=== PATIENT | female | born 1975 | race Caucasian/White ===

== ENCOUNTER 2024-03-17 15:49 | Emergency (ER) | payer OTHER, SELFPAY ==
--- NOTE | 2024-03-17 15:53 | ED.FEMALEGU ---
HPI - Female Genitourinary General Chief complaint: Urogenital-Female Stated complaint: Urinary Problem Time Seen by Provider: 03/17/24 16:12 Source: patient and RN notes reviewed Mode of arrival: ambulatory Limitations: no limitations History of Present Illness HPI Narrative: 48-year-old female presents concern for low back ache. She reports bilateral low back ache. She reports history of urinary tract infections. She reports fatigue but denies fever, body aches, chills, sweats, nausea, vomiting, dysuria, frequency, urgency, hematuria. She denies loss of bowel or bladder function, perianal anesthesia or weakness in any extremity. MD elicited complaint: UTI Related Data Home Medications Medication Instructions Recorded Confirmed atorvastatin 20 mg tablet 20 mg PO DAILY 03/17/24 03/17/24 bupropion HCl 300 mg 24 hr tablet, 300 mg PO DAILY 03/17/24 03/17/24 extended release clonazepam 0.5 mg tablet 0.5 mg PO DAILY PRN Anxiety 03/17/24 03/17/24 cyclobenzaprine 5 mg tablet 5 mg PO TID PRN Spasms 03/17/24 03/17/24 spironolactone 50 mg tablet 50 mg PO DAILY 03/17/24 03/17/24 Allergies Allergy/AdvReac Type Severity Reaction Status Date / Time acetaminophen [From Tylenol] Allergy Nausea and Verified 03/17/24 16:18 Vomiting hydrocodone Allergy Nausea and Verified 03/17/24 16:19 Vomiting tramadol Allergy Nausea and Verified 03/17/24 16:19 Vomiting Review of Systems Review of Systems: CONSTITUTIONAL: Denies malaise, chills, sweats, or fever. CARDIOVASCULAR: Denies chest pain, palpitations, or edema. RESPIRATORY: Denies cough or dyspnea. GASTROINTESTINAL: Denies abdominal pain, nausea, vomiting, diarrhea GENITOURINARY: Denies dysuria, frequency, urgency, suprapubic pressure. Denies flank pain or hematuria. SKIN: Denies rash or itching. MUSCULOSKELETAL:. Reports back pain, denies myalgia. All systems reviewed & are unremarkable except as noted in HPI and below PMFSH Comments At time of signature, agree with nursing past medical, surgical, social and family history. There is no relevant family history pertinent to the presenting complaint Exam Narrative: GENERAL: Well-appearing, well-nourished, and in no acute distress. HEAD: Normocephalic. EYES: PERRLA, conjunctivae clear. NECK: Supple. No lymphadenopathy CHEST: Clear to auscultation. No respiratory distress. HEART: Regular rate and rhythm. ABDOMEN: Soft, nontender upon palpation, nondistended, normal active bowel sounds, no palpable or pulsatile masses, no guarding. No CVA tenderness SKIN: Warm, dry, no rash. NEURO: Alert and oriented x3. PSYCH: Normal mood and affect Course Course Emergency Course: Patient is aware of diagnosis, understands and agrees to treatment plan. Anticipatory guidance given. Patient agrees to follow-up as directed and is aware of reasons to seek care at the emergency department. Portions of this record may have been created with voice recognition software Level of Care: Express Care Visit Vital Signs Vital signs: Vital Signs Temperature 98.3 F 03/17/24 16:01 Pulse Rate 92 03/17/24 16:01 Respiratory Rate 16 03/17/24 16:01 Blood Pressure 114/81 03/17/24 16:01 Pulse Oximetry 99 03/17/24 16:01 Oxygen Delivery Room Air 03/17/24 16:01 Temperature 98.3 F 03/17/24 16:01 Pulse Rate 92 03/17/24 16:01 Respiratory Rate 16 03/17/24 16:01 Blood Pressure 114/81 03/17/24 16:01 Pulse Oximetry 99 03/17/24 16:01 Oxygen Delivery Room Air 03/17/24 16:01 Reviewed. MDM - Female Genitourinary MDM Narrative Medical decision making narrative: Exam findings and UA show no acute concerns or changes; patient is non-toxic appearing and is in no distress. Patient is appropriate for outpatient treatment and follow-up. Differential Diagnosis Differential diagnosis: Likely urinary tract infection and cystitis Lab Data Labs: Lab Results 03/17/24 Range/Units 16:11 POC
[2024-03-17 16:01] VITALS: BP 114/81; PULSE 92; RESP 16; TEMP 36.8; O2SAT 99
[2024-03-17 16:14] LABS: EDUAAPPEAR Clear; EDUABILI Negative (Negative); EDUABLOOD Negative (Negative); EDUACOLOR1 Yellow; EDUAGLUCOSE Negative (Negative); EDUAKETONE Negative (Negative); EDUALEUKO Negative (Negative); EDUANITRATE Negative (Negative); EDUAPH 7.5; EDUAPROTEIN Negative (Negative); EDUAUROBILI 0.2
== END 2024-03-17 16:21 | disposition home or self-care (01) ==
PROVIDERS: Emergency Provider Nurse Practitioner; PCP Family Medicine
DX: M54.50 Low back pain, unspecified (principal)
CPT/HCPCS: 81003; 87086; 87088; 99203; G0463

== ENCOUNTER 2024-06-18 10:05 | Emergency (ER) | payer OTHER, SELFPAY ==
[2024-06-18 10:16] VITALS: BP 105/69; PULSE 70; RESP 16; TEMP 37.2; O2SAT 100
--- NOTE | 2024-06-18 10:38 | ED.ALLEREA ---
HPI - Allergic Reaction General Chief complaint: Allergic Reaction Stated complaint: Rash History of Present Illness HPI narrative: Patient presents with itchy rash to her neck. Patient states he is allergic to dairy and she had some butter is what she thinks causes a rash. Patient has a itchy rash to her neck states she has been taking Benadryl and is much improved. Patient states she is itching it some but she is worried about a secondary infection. No drainage no streaking. Related Data Home Medications ?Medication ?Instructions ?Recorded ?Confirmed ?Last Taken ?Type atorvastatin 20 mg tablet 20 mg PO DAILY 03/17/24 03/17/24 Unknown History bupropion HCl 300 mg 24 hr tablet, 300 mg PO DAILY 03/17/24 03/17/24 Unknown History extended release clonazepam 0.5 mg tablet 0.5 mg PO DAILY PRN Anxiety 03/17/24 03/17/24 Unknown History cyclobenzaprine 5 mg tablet 5 mg PO TID PRN Spasms 03/17/24 03/17/24 Unknown History spironolactone 50 mg tablet 50 mg PO DAILY 03/17/24 03/17/24 Unknown History Allergies Allergy/AdvReac Type Severity Reaction Status Date / Time acetaminophen (From Tylenol) Allergy Nausea and Verified 03/17/24 16:18 Vomiting hydrocodone Allergy Nausea and Verified 03/17/24 16:19 Vomiting tramadol Allergy Nausea and Verified 03/17/24 16:19 Vomiting Review of Systems Review of Systems: CONSTITUTIONAL: Denies chills, or sweats. Reports fever and generalized body aches EYES: Denies visual changes, redness, or discharge. ENT: Denies otalgia. Reports nasal congestion runny nose and sore throat CARDIOVASCULAR: Denies chest pain, palpitations, or edema. RESPIRATORY: Denies dyspnea. Reports occasional cough GASTROINTESTINAL: Denies abdominal pain, nausea, vomiting, or diarrhea. GENITOURINARY: Denies dysuria or hematuria. SKIN: Denies rash or itching. MUSCULOSKELETAL: Denies back pain, joint pain, or myalgia. Reports generalized body aches NEUROLOGIC: Denies headache, numbness, or weakness. PSYCHIATRIC: Denies anxiety or depression. PMFSH Comments At time of signature, agree with nursing past medical, surgical, social and family history. There is no relevant family history pertinent to the presenting complaint Exam Narrative: The patient is a well-developed, well-nourished in no acute distress. SKIN: Skin is warm and dry without erythema, swelling or exudate. There is good turgor. No tenting. HEAD: Atraumatic. Normocephalic. No temporal or scalp tenderness. EYES: Moist and bright. Sclera and conjunctivae normal. No discharge. PERRLA. Extraocular motions intact. Gross visual acuity intact. EARS: Pinna is normal shape and contour. Clear external auditory canals. TM pearly chen with good cone of light, no erythema or suppuration. Bilateral cerumen noted no gross hearing deficit. NOSE: pink, moist mucosa with good air movement. Clear rhinorrhea without nasal flaring. Septum midline. Mouth: moist mucous membranes. THROAT; mild erythema noted to posterior oropharynx with moderate postnasal drainage. Without exudate or ulceration.. Uvula midline. Normal movement of soft palate. NECK: Supple and nontender with full range of motion without discomfort. No meningeal signs. Contact dermatitis dermatitis No induration fluctuance or drainage. No surrounding erythremia. No lesions and TTP. No specific pattern or dermatomal distribution. Several different stages with occasional scabbing and excoriation. Spares palms and soles. Findings consistent with contact dermatitis. LUNGS: Equal and bilateral breath sounds without wheezes, rales or rhonchi. CHEST: The chest wall is without retractions or use of accessory muscles. HEART: Has a regular rate and rhythm without murmur, gallops, click or rub. ABDOMEN: Soft, nontender with positive active bowel sounds. No rebound tenderness. EXTREMITIES: Without cyanosis, clubbing or edema. Equal 2+ distal pulses and 2 second capillary refill noted. NEUROLOGIC: alert, active, . The patient moves all extremities with normal muscle strength. Normal muscle tone is noted. Normal coordination is noted. NO focal neurological findings noted. Course Course Level of Care: Express Care Visit Vital Signs Vital signs: Vital Signs Temperature 37.2 C 06/18/24 10:16 Pulse Rate 70 06/18/24 10:16 Respiratory Rate 16 06/18/24 10:16 Blood Pressure 105/69 06/18/24 10:16 Pulse Oximetry 100 06/18/24 10:16 Oxygen Delivery Room Air 06/18/24 10:16 Temperature 37.2 C 06/18/24 10:16 Pulse Rate 70 06/18/24 10:16 Respiratory Rate 16 06/18/24 10:16 Blood Pressure 105/69 06/18/24 10:16 Pulse Oximetry 100 06/18/24 10:16 Oxygen Delivery Room Air 06/18/24 10:16 Discharge Plan Discharge Clinical Impression: Urticaria, Contact dermatitis Patient Disposition: Home, Self-Care Condition: Stable Instructions: Antibiotic Form Additional Instructions: -Hives are usually caused by skin contact with an irritant such as plants, new foods, new medications, new personal or household products, these can also be caused by viral infection - Cool compresses can be beneficial to help with swelling and itching, please apply these for 20 minutes at a time -If there is possible contact to an allergen to the skin surface area, a shower or bath may be beneficial, please change clothes -If over 1 year of age: can give Benadryl every 6--8 hours for hives that are itching, this is available over the counter. This medication is weight based. Please continue to give this until hives are gone for 12 hours. It may cause drowsiness. -You can also give a daily antihistamine such as Claritin, Zyrtec, or Amita based on patient?s age -If you have any worsening of symptoms or any other concerns please go to the ED immediately. Patient Language: Nicaraguan Prescriptions: New triamcinolone acetonide 0.1 % ointment 1 applic topical TID 7 Days Qty: 30 0RF mupirocin 2 % ointment 1 applic TOPICAL TID 7 Days Qty: 15 0RF Zyrtec 10 mg capsule 10 mg PO DAILY 14 Days Qty: 30 0RF No Action atorvastatin 20 mg tablet 20 mg PO DAILY spironolactone 50 mg tablet 50 mg PO DAILY bupropion HCl 300 mg tablet extended release 24 hr 300 mg PO DAILY clonazepam 0.5 mg tablet 0.5 mg PO DAILY PRN (Reason: Anxiety) cyclobenzaprine 5 mg tablet 5 mg PO TID PRN (Reason: Spasms) Follow-up/Referrals: Annette,Fernando Garcia DO [Primary Care Provider] -
--- OUTSIDE RECORDS SUMMARY | 2024-06-25 09:49 | XMS_ITS | Encounter Summary ---
Author Organization [facility] Healthcare Address [address] [place] [address] Care Team Providers Care Chef German Name Role Phone Eliseo Lambert MD Primary Care Provider Erna Hooper MD Unavailable Kwesi Hill MD Unavailable [phone] Fernando Bryant DO Primary Care Provider [phone] Reason for Visit * Reason Onset Date Comments Dizziness 06/29/2023 Shortness of Breath 06/29/2023 Fever 06/29/2023 Encounter Details Date Type Department Care Team (Late st Contact Info) Description 06/29/2023 Nurse Triage [facility] Primary Care at [address] [place] [address] Eliseo Lambert MD [address] [place], [place] [address]DG [facility] [address] [place] [address] Social History Tobacco Use Types Packs/Day Years Used Date Smoking Tobacco: Every Day Cigarettes Smokeless Tobacco: Never Alcohol Use Standard Drinks/Week Comments No 0 (1 standard drink = 0.6 oz pur e alcohol) PHQ-2 Answer Date Recorded PHQ-2 Total Score (If total score is 3 or more points, staff should administer the PHQ-9) 0 04/21/2023 Personal Safety Answer Date Recorded Have you ever been in or are you currently in a harmful physical or emotional relationship or is someone making you feel afraid or unsafe? 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 Pt completed Paxlovid today. Pt states continues to have on and off fevers, last one today at 100.0. Pt denies using inhalers as directed for sob. Needs refill on inhaler. Appt scheduled in office with CORRECTIONAL CASE MANAGER for follow up this week. Pt encouraged to stay hydrated, drink warm broth and fluids, try tea with honey to soothe throat, cough syrups, throat logenzes, tylenol for headaches, temperature, or body aches, using inhaler for wheezing if has one (call if needed or develops), mucinex for expectorant, claritin or zyrtec for anti histamine to dry up nasal drainage, humidifier, and take warm showers. Please call back if fever over 103, chest pain or sob while at rest. Pt provided with CDC recommendations of isolation. Stay home for 5 days from onset of symptoms. If symptoms improving and no fever in 24hrs, pt may leave home on day 6 and wear mask around others foradditional 5 days. Routed to clinical pool. Pt requesting refill on inhaler be sent to pharmacy. Please call pt directly with further recommendations. * Telephone Encounter - Nubia Kim RN - 06/29/2023 12:17 PM PROFESSOR OF JOURNALISM Regarding: shortness of breath/light headed ----- Message from Zakia Acevedo sent at 06/29/2023 11:56 AM PROFESSOR OF JOURNALISM ----- Symptom Based Call Chief Complaint(s): shortness of breath/light headed Duration: seven days What type of symptom(s) is the patient experiencing? Red Flag. Is the patient concerned they are experiencing a medical emergency requiring an ambulance? No Additional Comments: shortness of breath/light headed, fever keeps coming back , skin color is grayish , light headed, weak when walking, cannot walk/talk too much due to shortness of breath, taking Paxlovid due to positive COVID test (message dated as ), payment analyst cannot prescribe medication but will develop a plan of care Does message need to be routed? Yes-Action Needed ESSOR OF JOURNALISM documented in this encounter Plan of Treatment Not on file documented as of this encounter Visit Diagnoses Not on filedocumented in this encounter Care Teams Chef German Relationship Specialty Start Date End Date Eliseo Lambert MD PCP - General Family Medicine 05/21/20 06/29/23 Fernando Bryant DO [address] [place] [address] PCP - General Family Medicine 06/30/23 Erna Hooper MD [address] [place] [address] Referring Physician Nephrology 12/21/22 Kwesi Hill MD [address] [place] [address] [address] [place] [address] Consulting Physician Psychiatry 03/15/23 documented as of this encounter
--- OUTSIDE RECORDS SUMMARY | 2024-06-25 09:49 | XMS_ITS | Encounter Summary ---
Author Organization [facility] Healthcare Address [address] [place] [address] Care Team Providers Care Cutter Grinder Name Role Phone Eliseo Lambert MD Primary Care Provider Erna Hooper MD Unavailable Kwesi Hill MD Unavailable [phone] Reason for Referral * Diagnostic Imaging (Routine) - Closed Specialty Diagnoses / Procedures Referred By Mirlande steinberg Referred To Contact Diagnoses Elevated serum creatinine Chronic RUQ pain CKD (chronic kidney disease) stage 2, GFR 60-89 ml/min Abnormal finding Procedures US Kidney Complete US Kidney Complete Erna Hooper MD [address] [place] [address] [address] Phone: tel: fax: [address] [address] Referral ID Status Reason Start Date Expiration Date Visits Re quested Visits Authorized [id number] Closed 01/28/2023 02/27/2024 1 1 Reason for Visit * Diagnostic Imaging (Routine) - Closed Specialty Diagnoses / Procedures Referred By Mirlande steinberg Referred To Contact Diagnoses Elevated serum creatinine Chronic RUQ pain CKD (chronic kidney disease) stage 2, GFR 60-89 ml/min Abnormal finding Procedures US Kidney Complete US Kidney Complete Erna Hooper MD [address] [place] [address] [address] Phone: tel: fax: [address] [place] [address] Referral ID Status Reason Start Date Expiration Date Visits Re quested Visits Authorized [id number] Closed 01/28/2023 02/27/2024 1 1 Encounter Details Date Type Department Care Team (Latest Contact Info) Description 04/20/2023 2:13 PM CDT - 04/20/2023 11:59 PM CDT Hospital Encounter [facility] [address] [place] [address] Elevated serum creatinine; Chronic RUQ pain; CKD (chronic kidney disease) stage 2, GFR 60-89 ml/min; Abnormal finding Discharge Disposition: Discharge to home or self care Social History Tobacco Use Types Packs/Day Years Used Date Smoking Tobacco: Every Day Cigarettes Smokeless Tobacco: Never Alcohol Use Standard Drinks/Week Comments No 0 (1 standard drink = 0.6 oz pur e alcohol) PHQ-2 Answer Date Recorded PHQ-2 Total Score (If total score is 3 or more points, staff should administer the PHQ-9) 0 04/21/2023 Comments No Sex and Gender Information Value Date Recorded Sex Assigned at Not on file Legal Sex Female 1:17 AM DELIVERY MANAGER Gender Identity Not on file Sexual Orientation Not on file 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 100 each 1 09/19/19 21 buPROPion XL (WELLBUTRIN XL) 300 mg 24 hr tablet Take 1 tablet (300 mg total) by mouth every morning 04/12/20 20 cholecalciferol (VITAMIN D-3) 5,000 unit capsuleIndications:Vitam in D deficiency TAKE ONE CAPSULE BY MOUTH EVERY DAY 90 capsule 3 07/24/19 23 clonazePAM (KlonoPIN) 0.5 mg tablet as needed 11/20/19 23 ondansetron ODT (ZOFRAN-ODT) 4 mg disintegrating tablet Take 1 tablet (4 mg total) by mouth every 8 (eight) hours as needed for nausea or vomiting 20 tablet 11/04/19 22 OneTouch Verio Flex meter misc 09/20/19 21 lidocaine (LIDODERM) 5 % Place 1 patch on the skin daily for 10 days Remove & discard patch within 12 hours or as directed by . 10 patch 05/12/20 22 024 spironolactone (ALDACTONE) 50 mg tabletIndications:Cystic acne vulgaris TAKE ONE TABLET BY MOUTH EVERY DAY 90 tablet 2 09/22/19 23 023 documented as of this encounter Discharge Disposition Disposition Code Departure Means Destination Discharge to home or self care documented in this encounter Plan of Treatment Not on file documented as of this encounter Procedures Procedure Name Priority Date/Time Associated Diagnosis Comments US KIDNEY COMPLETE Schedule Routine, Read Routine (OP Routine) 04/20/2023 2:51 PM CDT Elevated serum creatinine Chronic RUQ pain CKD (chronic kidney disease) stage 2, GFR 60-89 ml/min Abnormal finding documented in this encounter Results * US Kidney Complete (04/20/2023 2:51 PM CDT) Anatomical Region Laterality Modality Kidney N/A Ultrasound 04/22/2023 6:38 AM CDT Narrative 04/22/2023 6:40 AM CDT EXAM DESCRIPTION: ?? US KIDNEY COMPLETE REASON FOR STUDY: ?? procedure, eval for structural abnormalities causing elevated Cr ?? TECHNIQUE: Ultrasound of the kidneys and urinary bladder was performed with grayscale imaging. COMPARISON: ?? CT dated 06/07/2020 FINDINGS: Right Kidney: Normal in size and measures 11.5 cm. ??Normal echogenicity. ??No hydronephrosis. Left Kidney: Normal in size and measures 9.6 cm. ??Mild increased echogenicity. No hydronephrosis. Bladder: Partially distended. ??Bilateral ureteral jets are documented. ?? IMPRESSION: 1. ?? No hydronephrosis. ?? 2. ?? Mild increased left renal echogenicity suggestive of chronic renal parenchymal disease. THIS IS AN ELECTRONICALLY VERIFIED FINAL REPORT 04/22/2023 6:40 AM - Electronically signed by ??Patel Clark M.D. AG: ANGELICA D: ??04/22/2023 6:40 AM T: ??04/22/2023 6:40 AM Report ID: [id number] Reading Location: ??[id number] Procedure Note Patel Clark MD - 04/22/2023 EXAM DESCRIPTION: US KIDNEY COMPLETE REASON FOR STUDY: procedure, eval for structural abnormalities causing elevated Cr TECHNIQUE: Ultrasound of the kidneys and urinary bladder was performedwith grayscale imaging. COMPARISON: CT dated 06/07/2020 FINDINGS: Right Kidney: Normal in size and measures 11.5 cm. Normal echogenicity.No hydronephrosis. Left Kidney: Normal in size and measures 9.6 cm. Mild increasedechogenicity. No hydronephrosis. Bladder: Partially distended. Bilateral ureteral jets are documented. IMPRESSION: 1. No hydronephrosis. 2. Mild increased left renal echogenicity suggestive of chronic renal parenchymal disease. THIS IS AN ELECTRONICALLY VERIFIED FINAL REPORT 04/22/2023 6:40 AM - Electronically signed by Patel Clark M.D. AG: AG Report ID: [id number] Reading Location: [id number] us Erna Hooper MD IM US PROCEDURES Final Result documented in this encounter Visit Diagnoses Diagnosis Elevated serum creatinine Other nonspecific findings on examination of blood Chronic RUQ pain Abdominal pain, right upper quadrant CKD (chronic kidney disease) stage 2, GFR 60-89 ml/min Chronic kidney disease, Stage II (mild) Abnormal finding Other nonspecific abnormal finding documented in this encounter Care Teams Cutter Grinder Relationship Specialty Start Date End Date Eliseo Lambert MD PCP - General Family Medicine 05/21/20 06/29/23 Erna Hooper MD [address] [place] [address] Referring Physician Nephrology 12/21/22 Kwesi Hill MD [address] [place] [address] [address] [place] [address] Consulting Physician Psychiatry 03/15/23 documented as of this encounter
--- OUTSIDE RECORDS SUMMARY | 2024-06-25 09:49 | XMS_ITS | Encounter Summary ---
Author Organization [facility] Address [address] [place] [address] Care Team Providers Care Junior Java Developer Name Role Phone Eliseo Lambert MD Primary Care Provider Erna Hooper MD Unavailable Kwesi Hill MD Unavailable [phone] Reason for Referral * Diagnostic Imaging (Routine) - Closed Specialty Diagnoses / Procedures Referred By Contac t Referred To Contact Diagnoses Screening mammogram, encounter for Procedures Screening Mammogram Bilateral W [place] Screening Mammogram, [address] [address] Referral ID Status Reason Start Date Expiration Date Visits Re quested Visits Authorized [id number] Closed 03/15/2023 04/13/2024 1 1 * Diagnostic Imaging (Routine) - Closed Specialty Diagnoses / Procedures Referred By Contac t Referred To Contact Diagnoses Screening mammogram, encounter for Procedures Screening Mammogram Bilateral [place] Screening Mammogram, [address] [address] Referral ID Status Reason Start Date Expiration Date Visits Re quested Visits Authorized [id number] Closed 03/15/2023 04/13/2024 1 1 Reason for Visit * Diagnostic Imaging (Routine) - Closed Specialty Diagnoses / Procedures Referred By Contac t Referred To Contact Diagnoses Screening mammogram, encounter for Procedures Screening Mammogram Bilateral [place] Screening Mammogram, [address] [address] Referral ID Status Reason Start Date Expiration Date Visits Re quested Visits Authorized [id number] Closed 03/15/2023 04/13/2024 1 1 Encounter Details Date Type Department Care Team (Latest Contact Info) Description 04/20/2023 2:13 PM CDT - 04/20/2023 11:59 PM CDT Hospital Encounter [facility] [address] [place] [address] Screening mammogram, encounter for Discharge Disposition: Discharge to home or self [...] on file 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 10 patch 05/12/20 22 024 spironolactone (ALDACTONE) 50 mg tabletIndications:Cystic acne vulgaris TAKE ONE TABLET BY MOUTH EVERY DAY 90 tablet 2 09/22/19 23 023 documented as of this encounter Discharge Disposition Disposition Code Departure Means Destination Discharge to home or self care documented in this encounter Miscellaneous Notes * Result Encounter Note - Eliseo Lambert MD - 04/20/2023 11:59 PM CDT Your breast cancer screening mammogram showed normal findings on the right breast but there was a region in your left breast that showed some abnormality of the breast tissue structure which requiresfurther imaging. Please note that this is commonly done if there is any area that needs further imaging. At times itcould be a thick breast tissue that Is not well visualized with screening mammogram or other findings that need better detailed imaging so it does not automatically mean breast cancer although it canhelp us detect one if there is. Staff - order Diagnostic mammogram of left breast and US limited of left breast documented in this encounter Plan of Treatment Not on file documented as of this encounter Procedures Procedure Name Priority Date/Time Associated Diagnosis Comments SCREENING MAMMOGRAM BILATERAL W [place] Schedule Routine, Read Routine (OP Routine) 04/20/2023 2:49 PM CDT Screening mammogram, encounter for documented in this encounter Results * (ABNORMAL) Screening Mammogram Bilateral W [place] (04/20/2023 2:49 PM CDT) Anatomical Region Laterality Modality Breast Bilateral Mammography 04/20/2023 2:53 PM CDT Impressions 04/20/2023 2:53 PM CDT 1. ??Possible asymmetry in the central left breast at middle to posterior depth on MLO view. ??Further evaluation with left diagnostic mammogram, and possible sonogram is recommended. 2. ??No new suspicious findings in the right breast. BI-RADS: 0 - Additional imaging evaluation is necessary. The patient has been or will be contacted. Electronically signed by: TATY COX Milo 04/20/2023 2:53 PM CDT EXAMINATION: SCREENING MAMMOGRAM BILATERAL W [place] ORDERING HEALTHCARE PROVIDER: SELF SCREENING MAMMOGRAM HISTORY: Routine screening mammography. COMPARISON: ??08/02/2021 TECHNIQUE: CC and MLO views of both breasts were obtained with digital technique using digital breast tomosynthesis with C view. Computer aided detection was utilized. FINDINGS: DENSITY: The breasts are heterogeneously dense, which may obscure small masses. BREASTS: There are no new suspicious findings in the right breast. ??A possible asymmetry is noted in the central left breast at middle to posterior depth on MLO view. us Self Screening Mammogram IMG MAMMO PROCEDURES Fi nal Result documented in this encounter Visit Diagnoses Diagnosis Screening mammogram, encounter for documented in this encounter Care Teams Junior Java Developer Relationship Specialty Start Date End Date Eliseo Lambert MD PCP - General Family Medicine 05/21/20 06/29/23 Erna Hooper MD [address] [place] [address] Referring Physician Nephrology 12/21/22 Kwesi Hill MD [address] [place] [address] [address] [place] [address] Consulting Physician Psychiatry 03/15/23 documented as of this encounter
--- OUTSIDE RECORDS SUMMARY | 2024-06-25 09:49 | XMS_ITS | Encounter Summary ---
Author Organization [facility] Address [address] [place] [address] Phone Care Team Providers Care Log Carrier Operator Name Role Phone Erna Hooper MD Unavailable Kwesi Hill MD Unavailable [phone] Fernando Bryant DO Primary Care Provider [phone] Reason for Visit * Reason Onset Date Comments Appointment 01/14/2024 Encounter Details Date Type Department Care Team (Late st Contact Info) Description 01/14/2024 Telephone [facility] Nephrology [address] [facility] 5th [place] [address] [place] [address] Neto Dan MD [address] [facility] [address] [place] [address] Appointment Social History Tobacco Use Types Packs/Day Years [...] on file 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 Juan * Telephone Encounter - Shandra Kamara - 01/24/2024 1:12 PM CDT Left second message. Juan * Telephone Encounter - Shandra Kamara - 01/14/2024 11:10 AM CDT Left first message to 12/08/23 CX appt. Juan documented in this encounter Plan of Treatment Not on file documented as of this encounter Visit Diagnoses Not on filedocumented in this encounter Care Teams Log Carrier Operator Relationship Specialty Start Date End Date Fernando Bryant DO [address] [place] [address] PCP - General Family Medicine 06/30/23 Erna Hooper MD [address] [place] [address] Referring Physician Nephrology 12/21/22 Kwesi Hill MD [address] [place] [address] [address] [place] [address] Consulting Physician Psychiatry 03/15/23 documented as of this encounter
--- OUTSIDE RECORDS SUMMARY | 2024-06-25 09:49 | XMS_ITS | Encounter Summary ---
Author Organization [facility] Healthcare Address [address] [place] [address] Care Team Providers Care Infant Lead Teacher Name Role Phone Erna Hooper MD Unavailable Kwesi Hill MD Unavailable [phone] Fernando Bryant DO Primary Care Provider [phone] Reason for Visit * Reason Onset Date Comments Medical Records Request 01/27/2024 Encounter Details Date Type Department Care Team (Late st Contact Info) Description 01/27/2024 Telephone [facility] Medical [facility] Primary Care at [address] [place] [address] Eliseo Lambert MD [address] [place] [address] [address] [place] [address] Medical Records Request Social History Tobacco Use Types Packs/Day Years [...] on file 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 * Telephone Encounter - Karoline Talley CLT - 01/27/2024 9:06 AM CDT Immunization summary printed and placed at the senior front end engineer with [employer] to be signed. * Telephone Encounter - Gilberto Huang - 01/27/2024 8:24 AM CDT Medical Records Request Request Type: Records Request Practice Will Complete What records are being requested:Complete vaccination records Who will the records be sent to (if being sent to another doctor, list the doctor's name and specialty)? Patient Date Needed: Today Delivery Method: maintenance supervisor 2nd shift at practice Additional Comments: Patient's new employer is requesting she have them today and they be signed bythe doctor. Sending high priority request. Call when ready Does message need to be routed? Yes-Action Needed documented in this encounter Plan of Treatment Not on file documented as of this encounter Visit Diagnoses Not on filedocumented in this encounter Care Teams Infant Lead Teacher Relationship Specialty Start Date End Date Fernando Bryant DO [address] [place] [address] PCP - General Family Medicine 06/30/23 Erna Hooper MD [address] [place] [address] Referring Physician Nephrology 12/21/22 Kwesi Hill MD [address] [place] [address] [address] [place] [address] Consulting Physician Psychiatry 03/15/23 documented as of this encounter
--- OUTSIDE RECORDS SUMMARY | 2024-06-25 09:49 | XMS_ITS | Encounter Summary ---
Author Organization [facility] Healthcare Address [address] [place] [address] Care Team Providers Care Charging Machine Operator Name Role Phone Eliseo Lambert MD Primary Care Provider Erna Hooper MD Unavailable Kwesi Hill MD Unavailable [phone] Reason for Visit * Reason Onset Date Comments Test Results 04/27/2023 Encounter Details Date Type Department Care Team ([facility] Contact Info) Description 04/27/2023 Telephone [facility] Medical Group Primary Care at [address] [place] [address] Eliseo Lambert MD [address] [place] [address] [address] [place] [address] Test Results Social History Tobacco Use Types Packs/Day Years [...] on file 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 No Additional Questions/Comments: Patient would like someone to call her back about her test results. Patient stated that she is not felling very good and feels blah . Patient stated that her creatinine is high. Patients mchc is low. Mcv is kita as well. Patient stated that she does not know if she can wait 2-3 business days for results. Patient is more concerned about the creatinine. Does message need to be routed? Yes-Action Needed documented in this encounter Plan of Treatment Not on file documented as of this encounter Visit Diagnoses Not on filedocumented in this encounter Care Teams Charging Machine Operator Relationship Specialty Start Date End Date Eliseo Lambert MD PCP - General Family Medicine 05/21/20 06/29/23 Erna Hooper MD [address] [place] [address] Referring Physician Nephrology 12/21/22 Kwesi Hill MD [address] [place] [address] [address] [place] [address] Consulting Physician Psychiatry 03/15/23 documented as of this encounter
--- OUTSIDE RECORDS SUMMARY | 2024-06-25 09:49 | XMS_ITS | Encounter Summary ---
Author Organization [facility] Healthcare Address [address] [place] [address] Care Team Providers Care Medical Records Coder Name Role Phone Eliseo Lambert MD Primary Care Provider Erna Hooper MD Unavailable Kwesi Hill MD Unavailable Reason for Visit * Reason Comments UTI Both sides aching, p t states she feels run down Encounter Details Date Type Department Care Team (Latest Contact Info) Description 04/21/2023 3:00 PM CDT Office Visit 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 Not on file Not on file documented as of this encounter Last Filed Vital Signs Vital Sign Reading Time Taken Comments Blood Pressure 116/78 04/21/2023 3:00 PM CDT Pulse 100 04/21/2023 3:00 PM CDT Temperature 36.9 ??C (98.5 ??F) 04/21/2023 3:00 PM CD T Respiratory Rate - - Oxygen Saturation 99% 04/21/2023 3:00 PM CDT Inhaled Oxygen Concentration - - Weight 54 kg (119 lb) 04/21/2023 3:00 PM CDT Height 154.9 cm (5' 1 ) 04/21/2023 3:00 PM CDT Body Mass Index 22.48 04/21/2023 3:00 PM CDT documented in this encounter Progress Notes * Eliseo Lambert MD - 04/21/2023 3:00 PM CDT Images from the original note were not included. Assessment/Plan Diagnoses and all orders for this visit: Bilateral flank pain (Primary) - POCT urinalysis dipstick - CBC with auto differential; Future - Renal function panel; Future Pure hypercholesterolemia - TSH reflex to free T4; Future - Lipid panel; Future Point of care urinalysis shows normal findings. Low concern for a UTI. Patient just complete renal ultrasound yesterday is currently waiting results but will be helpful to rule out issues such as renal stone but unlikely if bilateral. Denies any strenuous activity or trauma but could also be musculoskeletal in nature. At this time I am going to go ahead and obtain lab work to evaluate for any abnormal findings including renal function. See orders. Return if symptoms worsen or fail to improve. Subjective/Objective Chief Complaint Patient presents with UTI Both sides aching, pt states she feels run down UTI Associated symptoms include flank pain (bilateral - doscomfort like) and nausea. Pertinent negatives include no chills, frequency, hematuria, urgency or vomiting. Kristy Quarles is a 47 y.o. female who is here for concern for urinary tract infection. Patient reports over the past few days she is had bilateral pain in her sides and has been feeling tired and was concerned about potential ear infection. She denies any dysuria, urinary frequency or urgency, blood in urine, she has mild nausea but no vomiting, fever or chills. Patient follows up with Nephrology and yesterday had an ultrasound of the kidneys complete but results still pending. Point of care urinalysis shows results as documented below. Component Ref Range & Units 04/21/23 1548 Color, Urine, POC Light Yellow Clarity, ur, POC Clear Clear Glucose, ur, POC Negative MG/DL Negative Bilirubin, ur, POC Negative, Small, Moderate, Large Negative Ketones, ur, POC Negative Negative Specific Reform, POC 1.003 - 1.030 1.020 Blood, ur, POC Negative Negative pH, ur, POC 5.0 - 8.0 7.0 Protein, ur, POC Negative Negative Urobilinogen, urine, POC 0.2 - 1.0 mg/dL 0.2 Nitrite, ur, POC Negative Negative Leukocytes, ur, POC Negative Negative Please see the assessment and plan section for relevant conditions discussed, status of conditions,current and future management recommendations. Patient Care Team: Eliseo Lambert MD as PCP - General (Family Medicine) Erna Hooper MD as Referring Physician (Nephrology) Kwesi Hill MD as Consulting Physician (Psychiatry) Labs: Lab Results Component Value Date CHOL 199 05/06/2022 TRIG 89 05/06/2022 HDL 71 05/06/2022 Lab Results Component Value Date LDLCALC 110 05/06/2022 Lab Results Component Value Date TSH 3.21 05/06/2022 Lab Results Component Value Date HGBA1C 5.3 03/27/2021 HGBA1C 5.3 05/30/2020 Review of Systems Constitutional: Negative for chills, fever and unexpected weight change. Gastrointestinal: Positive for nausea. Negative for abdominal pain, anal bleeding, blood in stool, constipation, diarrhea, rectal pain and vomiting. Genitourinary: Positive for flank pain (bilateral - doscomfort like). Negative for dysuria, frequency, genital sores, hematuria and urgency. Musculoskeletal: Negative for back pain. Skin: Negative for rash and wound. Vitals: 04/21/23 1500 BP: 116/78 BP Location: Left arm Patient Position: Sitting Pulse: 100 Temp: 36.9 ??C (98.5 ??F) SpO2: 99% Weight: 54 kg (119 lb) Height: 154.9 cm (5' 1 ) Wt Readings from Last 3 Encounters: 04/21/23 54 kg (119 lb) 03/15/23 53.5 kg (118 lb) 12/15/22 54.4 kg (120 lb) Body mass index is 22.48 kg/m??. Physical Exam Vitals and nursing note reviewed. Constitutional: General: She is not in acute distress. Appearance: Normal appearance. She is not ill-appearing. Comments: Here with her HENT: Head: Normocephalic and atraumatic. Mouth/Throat: Mouth: Mucous membranes are moist. Eyes: Extraocular Movements: Extraocular movements intact. Cardiovascular: Rate and Rhythm: Normal rate. Pulmonary: Effort: Pulmonary effort is normal. Chest: Abdominal: General: Abdomen is flat. Bowel sounds are normal. There is no distension. Palpations: Abdomen is soft. There is no mass. Tenderness: There is no abdominal tenderness. There is no right CVA tenderness, left CVA tenderness, guarding or rebound. Hernia: No hernia is present. Skin: General: Skin is warm. Neurological: General: No focal deficit present. Mental Status: She is alert and oriented to person, place, and time. Eliseo Lambert MD Please note: Voice recognition software [employer] Direct was used dictate and transcribe this document. Director Of Patient Financial Services variances may occur. Despite proofreading, typographical errors may occur. j documented in this encounter Plan of Treatment Scheduled Orders Name Type Priority Associated Diagnoses Orde r Schedule CBC with auto differential Lab Routine Bilateral flank pain Expected: 04/21/2023 (Approximate), Expires: 10/21/2023 Renal function panel Lab Routine Bilateral flank pain Expected: 04/21/2023 (Approximate), Expires: 10/21/2023 TSH reflex to free T4 Lab Routine Pure hypercholesterolemia Expected: 04/21/2023 (Approximate), Expires: 04/21/2024 Lipid panel Lab Routine Pure hypercholesterolemia Expected: 04/21/2023 (Approximate), Expires: 04/21/2024 documented as of this encounter Procedures Procedure Name Priority Date/Time Associated Diagnosis Comments POCT URINALYSIS DIPSTICK Routine 04/21/2023 3:48 PM CDT Bilateral flank pain documented in this encounter Results * POCT urinalysis dipstick (04/21/2023 3:48 PM CDT) Color, Urine, POC Light Yellow Clarity, ur, POC Clear Clear Glucose, ur, POC Negative Negative MG/DL Bilirubin, ur, POC Negative Negative, Small, Moderate, Large Ketones, ur, POC Negative Negative Specific Reform, POC 1.020 1.003 - 1.030 Blood, ur, POC Negative Negative pH, ur, POC 7.0 5.0 - 8.0 Protein, ur, POC Negative Negative Urobilinogen, urine, POC 0.2 0.2 - 1.0 mg/dL Nitrite, ur, POC Negative Negative Leukocytes, ur, POC Negative Negative Lot Number [id number] Urine 04/21/2023 3:48 PM CDT Eliseo Lambert MD POINT OF CARE TEST MIKE ROMERO Final Result documented in this encounter Visit Diagnoses Diagnosis Bilateral flank pain- Primary Abdominal pain, unspecified site Pure hypercholesterolemia documented in this encounter Care Teams Medical Records Coder Relationship Specialty Start Date End Date Eliseo Lambert MD PCP - General Family Medicine 05/21/20 06/29/23 Erna Hooper MD [address] [place] [address] Referring Physician Nephrology 12/21/22 Kwesi Hill MD [address] [place] [address] [address] [place] [address] Consulting Physician Psychiatry 03/15/23 documented as of this encounter
--- OUTSIDE RECORDS SUMMARY | 2024-06-25 09:49 | XMS_ITS | Encounter Summary ---
Author Organization [facility] Address [address] [place] [address] Phone Care Team Providers Care Lock[employer]ch Coat Joiner Name Role Phone Erna Hooper MD Unavailable Kwesi Hill MD Unavailable [phone] Fernando Bryant DO Primary Care Provider [phone] Encounter Details Date Type Department Care Team (Late st Contact Info) Description 11/16/2023 Orders Only [facility] Nephrology [address] Advanced Medicine 5th [place] [address] [place] [address] Neto aDn MD [address] [facility] [address] [place], [place] [id number] Elevated serum creatinine (Primary Dx); Pure hypercholesterolemia; Vitamin D deficiency; CKD (chronic kidney disease) stage 2, GFR 60-89 ml/min; Inflammatory polyarthropathy (CMS/HCC) (HCC); Degenerative disc disease at L5-S1 level; Vitamin D deficiency, unspecified; Encounter for routine adult health examination with abnormal findings; Screening for hematuria or proteinuria Social History Tobacco Use Types Packs/Day Years [...] on file 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 Gender Identity Not on file Sexual Orientation Not on file 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 file Not on file Not on file documented as of this encounter Miscellaneous Notes * Addendum Note - Lynette Jack RMA - 11/16/2023 1:35 PM CDTAddended by: LYNETTE JACK on: 11/16/2023 01:36 PM Modules accepted: Orders documented in this encounter Plan of Treatment Not on file documented as of this encounter Procedures Procedure Name Priority Date/Time Associated Diagnosis Comments COPY RECEIVED FROM Routine 11/29/2023 2: 22 PM CDT COPY(IES) SENT TO: Routine 11/29/2023 2: 22 PM CDT URINALYSIS AND REFLEX TO MICROSCOPIC Routine 11/29/2023 2:22 PM CDT Elevated serum creatinine Pure hypercholesterolemia Vitamin D deficiency CKD (chronic kidney disease) stage 2, GFR 60-89 ml/min Inflammatory polyarthropathy (CMS/HCC) (HCC) Degenerative disc disease at L5-S1 level Vitamin D deficiency, unspecified Encounter for routine adult health examination with abnormal findings Screening for hematuria or proteinuria CBC WITH AUTO DIFFERENTIAL Routine 11/29/2023 2:22 PM CDT Elevated serum creatinine Pure hypercholesterolemia Vitamin D deficiency CKD (chronic kidney disease) stage 2, GFR 60-89 ml/min Inflammatory polyarthropathy (CMS/HCC) (HCC) Degenerative disc disease at L5-S1 level Vitamin D deficiency, unspecified Encounter for routine adult health examination with abnormal findings Screening for hematuria or proteinuria PROTEIN / CREATININE RATIO, URINE, RANDOM Routine 11/29/2023 2:22 PM CDT Elevated serum creatinine Pure hypercholesterolemia Vitamin D deficiency CKD (chronic kidney disease) stage 2, GFR 60-89 ml/min Inflammatory polyarthropathy (CMS/HCC) (HCC) Degenerative disc disease at L5-S1 level Vitamin D deficiency, unspecified Encounter for routine adult health examination with abnormal findings Screening for hematuria or proteinuria VITAMIN D 25 HYDROXY Routine 11/29/2023 2:22 PM CDT Elevated serum creatinine Pure hypercholesterolemia Vitamin D deficiency CKD (chronic kidney disease) stage 2, GFR 60-89 ml/min Inflammatory polyarthropathy (CMS/HCC) (HCC) Degenerative disc disease at L5-S1 level Vitamin D deficiency, unspecified Encounter for routine adult health examination with abnormal findings Screening for hematuria or proteinuria PTH Routine 11/29/2023 2:22 PM CDT Elevated serum creatinine Pure hypercholesterolemia Vitamin D deficiency CKD (chronic kidney disease) stage 2, GFR 60-89 ml/min Inflammatory polyarthropathy (CMS/HCC) (HCC) Degenerative disc disease at L5-S1 level Vitamin D deficiency, unspecified Encounter for routine adult health examination with abnormal findings Screening for hematuria or proteinuria RENAL FUNCTION PANEL Routine 11/29/2023 2:22 PM CDT Elevated serum creatinine Pure hypercholesterolemia Vitamin D deficiency CKD (chronic kidney disease) stage 2, GFR 60-89 ml/min Inflammatory polyarthropathy (CMS/HCC) (HCC) Degenerative disc disease at L5-S1 level Vitamin D deficiency, unspecified Encounter for routine adult health examination with abnormal findings Screening for hematuria or proteinuria documented in this encounter Results * Copy received from (11/29/2023 2:22 PM CDT) Copy Rec'd from: [facility] Comment: ?[facility] - INTERNAL MED-RENAL ?[id number] [facility] [address] ?[place] [address] 11/29/2023 2:22 PM CDT 11/29/2023 2:23 PM CDT Narrative [facility] - 11/30/2023 7:15 AM CDT FASTING:NO FASTING: NO Neto Dan MD LAB BLOOD ORDERABLES Fi nal Result Performing Organization Address City/[facility]/ZIP Co de Phone Number [facility] * COPY(IES) SENT TO: (11/29/2023 2:22 PM CDT) COPY(IES) SENT TO: [facility] Comment: ?[facility] INTERNAL MED RENAL ?[address] ?[place] [address] 11/29/2023 2:22 PM CDT 11/29/2023 2:23 PM CDT Narrative [facility] - 11/30/2023 7:15 AM CDT FASTING:NO FASTING: NO Neto Dan MD LAB BLOOD ORDERABLES Fi nal Result Performing Organization Address [facility] de Phone Number [facility] * Renal function panel (11/29/2023 2:22 PM CDT) Glucose 84 65 - 139 mg/dL [facility] Comment: ? Non-fasting reference interval BUN 12 7 - 25 mg/dL [facility] Creatinine 0.94 0.50 - 1.03 mg/dL [facility] eGFR 74 > OR = 60 mL/min/1.7 3m2 [facility] BUN/creat ratio SEE NOTE: (calc) [facility] Comment: ?? Not Reported: BUN and Creatinine are within ?? reference range. ? Sodium 138 135 - 146 mmol/L [facility] Potassium, pl 4.2 3.5 - 5.3 mmol/L [facility] Chloride 100 98 - 110 mmol/L [facility] CO2 32 20 - 32 mmol/L [facility] Calcium 9.7 8.6 - 10.4 mg/dL [facility] Phosphorus, sr 3.3 2.5 - 4.5 mg/dL [facility] Albumin 4.6 3.6 - 5.1 g/dL [facility] Blood 11/29/2023 2:22 PM CDT 11/29/2023 2:23 PM CDT Narrative [facility] - 11/30/2023 7:15 AM CDT FASTING:NO FASTING: NO Neto Dan MD LAB BLOOD ORDERABLES Fi nal Result Performing Organization Address [facility] Co de Phone Number [facility] [address] [place] [address] * Vitamin D 25 hydroxy (11/29/2023 2:22 PM CDT) Pathologist [facility] Vitamin D 25-OH 66 30 - 100 ng/mL [facility] Comment: Vitamin D Status ? 25-OH Vitamin D: Deficiency: ?<20 ng/mL Insufficiency: ? 20 - 29 ng/mL Optimal: ? > or = 30 ng/mL For 25-OH Vitamin D testing on patients on D2-supplementation and patients for whom quantitation of D2 and D3 fractions is required, the [facility](TM) 25-OH VIT D, (D2,D3), LC/MS/MS is recommended: order code 09876 (patients >2yrs). See Note 1 Note 1 For additional information, please refer to http://education.[facility]/faq/VTU840 (This link is being provided for informational/ educational purposes only.) Blood 11/29/2023 2:22 PM CDT 11/29/2023 2:23 PM CDT Narrative [facility] - 11/30/2023 7:15 AM CDT FASTING:NO FASTING: NO Neto Dan MD LAB BLOOD ORDERABLES Fi nal Result Performing Organization Address City/[facility]/ZIP Co de Phone Number [facility] [address] [place] [address] * (ABNORMAL) CBC with auto differential (11/29/2023 2:22 PM CDT) WBC 6.2 3.8 - 10.8 Thousand/u L [facility] RBC, POC 3.83 3.80 - 5.10 Million/uL [facility] Hgb 12.6 11.7 - 15.5 g/dL [facility] Hct 39.2 35.0 - 45.0 % [facility] MCV 102.3(H) 80.0 - 100.0 fL [facility] MCH 32.9 27.0 - 33.0 pg [facility] MCHC 32.1 32.0 - 36.0 g/dL [facility] Rdw 11.8 11.0 - 15.0 % [facility] Platelets 253 140 - 400 Thousand/u L [facility] MPV 11.0 7.5 - 12.5 fL [facility] Neutrophils, abs 3,522 1,500 - 7,800 cells/uL [facility] Lymphocytes, abs 2,226 850 - 3,900 cells/uL [facility] Monocyte abs 248 200 - 950 cells/uL [facility] Eosinophils, abs 143 15 - 500 cells/uL [facility] Basophils, abs 62 0 - 200 cells/uL [facility] Neutrophils 56.8 % [facility] Lymphocyte pct 35.9 % [facility] Monocytes 4.0 % [facility] Eosinophils 2.3 % [facility] Basophils 1.0 % [facility] Blood 11/29/2023 2:22 PM CDT 11/29/2023 2:23 PM CDT Narrative [facility] - 11/30/2023 7:15 AM CDT FASTING:NO FASTING: NO us Neto Dan MD LAB BLOOD ORDERABLES Fi nal Result [facility] [address] [place] [address] * Protein / creatinine ratio, urine, random (11/29/2023 2:22 PM CDT) Pathologist [facility] Creatinine, ur 166 20 - 275 mg/dL [facility] Protein/creatin ine ratio 72 24 - 184 mg/g creat [facility] Protein/Creatin ine Ratio 0.072 0.024 - 0.184 mg/mg creat [facility] Protein, ur, quant 12 5 - 24 mg/dL [facility] Urine 11/29/2023 2:22 PM CDT 11/29/2023 2:23 PM CDT Narrative [facility] - 11/30/2023 7:15 AM CDT FASTING:NO FASTING: NO Neto Dan MD LAB URINE ORDERABLES Fi nal Result [facility] [place] [address] [place] [address] * PTH (11/29/2023 2:22 PM CDT) [facility] Parathyroid hormone, intact 38 16 - 77 pg/mL [facility] Comment: Interpretive Guide ?Intact PTH ? Calcium ? ------- Normal Parathyroid ?Normal ? Normal Hypoparathyroidism ?Low or Low Normal ?Low Hyperparathyroidism ?? Primary ?Normal or High ? High ?? Secondary ?High ? Normal or Low ?? Tertiary ? High ? High Non-Parathyroid ?? Hypercalcemia ?Low or Low Normal ?High Blood 11/29/2023 2:22 PM CDT 11/29/2023 2:23 PM CDT Narrative [facility] - 11/30/2023 7:15 AM CDT FASTING:NO FASTING: NO Neto Dan MD LAB BLOOD ORDERABLES Fi nal Result Performing Organization Address City/[facility]/ZIP Co de Phone Number [facility] [address] [facility] [place] [address] * Urinalysis reflex to microscopic (11/29/2023 2:22 PM CDT) Color, ur YELLOW YELLOW [facility] Appearance, ur CLEAR CLEAR [facility] Specific gravity 1.023 1.001 - 1.035 [facility] pH, ur 7.0 5.0 - 8.0 [facility] Glucose, ur NEGATIVE NEGATIVE [facility] Bilirubin, ur NEGATIVE NEGATIVE [facility] Ketones, ur NEGATIVE NEGATIVE [facility] Blood, ur NEGATIVE NEGATIVE [facility] Protein, ur, quant NEGATIVE NEGATIVE [facility] Nitrites, ur NEGATIVE NEGATIVE [facility] Leukocyte esterase, ur NEGATIVE NEGATIVE [facility] Urine 11/29/2023 2:22 PM CDT 11/29/2023 2:23 PM CDT Narrative [facility] - 11/30/2023 7:15 AM CDT FASTING:NO FASTING: NO Neto Dan MD LAB URINE ORDERABLES Fi nal Result [facility] [address] [place] [address] documented in this encounter Visit Diagnoses Diagnosis Elevated serum creatinine- Primary Other nonspecific findings on examination of blood Pure hypercholesterolemia Vitamin D deficiency CKD (chronic kidney disease) stage 2, GFR 60-89 ml/min Chronic kidney disease, Stage II (mild) Inflammatory polyarthropathy (CMS/HCC) (HCC) Unspecified inflammatory polyarthropathy Degenerative disc disease at L5-S1 level Vitamin D deficiency, unspecified Encounter for routine adult health examination with abnormal findings Screening for hematuria or proteinuria Screening for unspecified condition documented in this encounter Care Teams [employer]ch Coat Joiner Relationship Specialty Start Date End Date Fernando Bryant DO [address] [place] [address] PCP - General Family Medicine 06/30/23 Erna Hooper MD [address] [place] [address] Referring Physician Nephrology 12/21/22 Kwesi Hill MD [address] [place] [address] [address] [place] [address] Consulting Physician Psychiatry 03/15/23 documented as of this encounter
--- OUTSIDE RECORDS SUMMARY | 2024-06-25 09:49 | XMS_ITS | Encounter Summary ---
Author Organization [facility] Healthcare Address [address] [place] [address] Care Team Providers Care Coal Wheeler Name Role Phone Erna Hooper MD Unavailable Kwesi Hill MD Unavailable [phone] Fernando Bryant DO Primary Care Provider [phone] Reason for Visit * Reason Comments Wrist Pain Encounter Details Date Type Department Care Team (Late st Contact Info) Description 09/07/2023 11:22 PM CDT - 09/08/2023 1:25 AM CDT Emergency [facility] Emergency Department [address] [place] [address] Hand sprain, left, initial encounter (Primary Dx); Left wrist sprain, initial encounter Discharge Disposition: Discharge to home or self [...] on file Legal Sex Female 1:17 AM SPECTACLE TRUER Gender Identity Not on file Sexual Orientation Not on file 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 Not on file Not on file documented as of this encounter Last Filed Vital Signs Vital Sign Reading Time Taken Comments Blood Pressure 111/73 09/07/2023 8:39 PM CDT Pulse 91 09/07/2023 8:39 PM CDT Temperature 37.4 ??C (99.4 ??F) 09/07/2023 8:39 PM CD T Respiratory Rate 18 09/07/2023 8:39 PM CDT Oxygen Saturation 100% 09/07/2023 8:39 PM CDT Inhaled Oxygen Concentration - - Weight 54.4 kg (120 lb) 09/07/2023 8:39 PM CDT Height - - Body Mass Index 22.67 04/21/2023 3:00 PM CDT documented in this encounter Discharge Instructions * Attachments The following attachments cannot be sent through Care Everywhere. * Hand Sprain (Japanese) * Wrist Sprain (Japanese) documented in this encounter Medications at Time of Discharge acetaminophen (TYLENOL) 500 mg tabletIndications:Hand sprain, left, initial encounter,Left wrist sprain, initial encounter Take 1 tablet (500 mg total) by mouth every 6 (six) hours as needed for pain Collaborating physician Kurt Nash MD 30 tablet 09/07/19 24 atorvastatin (LIPITOR) 20 mg tabletIndications:Pure hypercholesterolemia Take [...] 0.5 mg tablet as needed 11/20/19 23 lidocaine (LIDODERM) 5 %Indications:Hand sprain, left, initial encounter,Left wrist sprain, initial encounter Place 1 patch on the skin daily Placed over area of maximal intensity pain as directed. Remove & discard patch within 12 hours or as directed by . Collaborating physician Kurt Nash MD 14 patch 09/07/19 24 ondansetron ODT (ZOFRAN-ODT) 4 mg disintegrating tablet Take 1 tablet (4 mg total) by mouth every 8 (eight) hours as needed for nausea or vomiting 20 tablet 11/04/19 22 OneTouch Verio Flex meter misc 09/20/19 21 spironolactone (ALDACTONE) 50 mg tabletIndications:Cystic acne vulgaris TAKE 1 TABLET BY MOUTH EVERY DAY 90 tablet 2 05/17/20 23 predniSONE (DELTASONE) 10 mg tabletIndications:Hand sprain, left, initial encounter,Left wrist sprain, initial encounter Take 1 tablet (10 mg) by mouth 2 (two) times a day for 5 days Take as directed to help reduce pain and swelling. Collaborating physician Kurt Nash MD 10 tablet 09/07/19 24 024 documented as of this encounter Ordered Prescriptions Prescription Sig Dispense Quantity Refills Last Filled Start Date End Date acetaminophen (TYLENOL) 500 mg tabletIndications :Hand sprain, left, initial encounter,Left wrist sprain, initial encounter Take 1 tablet (500 mg total) by mouth every 6 (six) hours as needed for pain Collaborating physician Kurt Nash MD 30 tablet 09/07/2023 lidocaine (LIDODERM) 5 %Indications:Hand sprain, left, initial encounter,Left wrist sprain, initial encounter Place 1 patch on the skin daily Placed over area of maximal intensity pain as directed. Remove & discard patch within 12 hours or as directed by MD. Collaborating physician Kurt Nash MD 14 patch 09/07/2023 predniSONE (DELTASONE) 10 mg tabletIndications :Hand sprain, left, initial encounter,Left wrist sprain, initial encounter Take 1 tablet (10 mg) by mouth 2 (two) times a day for 5 days Take as directed to help reduce pain and swelling. Collaborating physician Kurt Nash MD 10 tablet 09/07/2023 09/12/19 24 documented in this encounter Discharge Disposition Disposition Code Departure Means Destination Comment s Discharge to home or self care documented in this encounter ED Notes * Roberto Corea PA - 09/07/2023 11:46 PM CDT HPI Chief Complaint Patient presents with Wrist Pain 47-year-old female past medical history of anxiety, depression, PTSD, and GERD presents with chief complaint of injury to her left hand and wrist. Around 6:00 p.m. fell onto the left outstretched hand while roller-skating. Denies head injury or loss of consciousness. Denies other injuries. Describes the pain as constant, severe, and aching. Aggravated by movement. Alleviated by position and rest.Pain radiates up the forearm. History provided by: Patient process trainer used: No Patient History: Patient Active Problem List Diagnosis Date Noted Hand sprain, left, initial encounter 09/07/2023 Left wrist sprain, initial encounter 09/07/2023 Abnormal finding 02/11/2022 Gastroesophageal reflux disease 01/08/2022 Chronic RUQ pain 01/06/2021 S/P tubal ligation 01/06/2021 CKD (chronic kidney disease) stage 2, GFR 60-89 ml/min 09/20/2020 Vitamin D deficiency 09/19/2020 S/P laparoscopic cholecystectomy 09/18/2020 Alternating constipation and diarrhea 09/18/2020 Degenerative disc disease at L5-S1 level 06/10/2020 PTSD (post-traumatic stress disorder) 05/21/2020 Cystic acne vulgaris 05/21/2020 Numbness and tingling of right arm 04/04/2020 Pure hypercholesterolemia 11/11/2013 Generalized anxiety disorder 08/18/2010 Moderate episode of recurrent major depressive disorder (HCC) 08/18/2010 Psychophysiological insomnia 09/03/2009 Inflammatory polyarthropathy (CMS/HCC) (HCC) 09/03/2009 Past Medical History: Diagnosis Date Anxiety disorder Anxiety Depression Depression History of tubal ligation History of tubal ligation Mass of breast Lump or mass in breast Posttraumatic stress disorder PTSD - Post-traumatic stress disorder Past Surgical History: Procedure Laterality Date BREAST LUMPECTOMY Left 06/28/1999 benign surgical bx FACIAL COSMETIC SURGERY GALLBLADDER SURGERY Family History Problem Relation Age of Onset Hypertension Mother Breast cancer Father's Sister Atrial fibrillation Father Coronary artery disease Father No Known Problems Brother Heart disease Other Family history of Cardiovascular disease; Diabetes Other Family history of Diabetes mellitus; Ovarian cancer Neg Hx Thyroid cancer Neg Hx Social History Tobacco Use Smoking status: Every Day Current packs/day: 0.30 Types: Cigarettes Smokeless tobacco: Never Vaping Use Vaping status: Never Used Substance and Sexual Activity Alcohol use: No Drug use: No Sexual activity: None Social History Social History Narrative Lives with her 3 younger children. Review of Systems Review of Systems All other systems reviewed negative. All available allergies, past medical history, past surgical history, social history, and medications reviewed from the medical record, nursing notes, and with patient Physical Exam ED Triage Vitals [09/07/232038] Temp Pulse Resp BP SpO2 37.4 ??C (99.4 ??F) 91 18 111/73 100 % Temp src Heart Rate Source Patient Position BP Location FiO2 (%) Temporal -- -- -- -- Height Height Method Weight Weight Method -- -- 54.4 kg (120 lb) Stated Physical Exam Vitals and nursing note reviewed. Constitutional: General: She is not in acute distress. Appearance: Normal appearance. She is not ill-appearing, toxic-appearing or diaphoretic. HENT: Head: Normocephalic and atraumatic. Right Ear: External ear normal. Left Ear: External ear normal. Nose: Nose normal. Mouth/Throat: Mouth: Mucous membranes are moist. Pharynx: Oropharynx is clear. Eyes: Conjunctiva/sclera: Conjunctivae normal. Pupils: Pupils are equal, round, and reactive to light. Cardiovascular: Rate and Rhythm: Normal rate and regular rhythm. Pulses: Normal pulses. Heart sounds: Normal heart sounds. Pulmonary: Effort: Pulmonary effort is normal. Breath sounds: Normal breath sounds. Chest: Chest wall: No tenderness. Musculoskeletal: Cervical back: Normal range of motion. No tenderness. Comments: Left wrist/hand exam - decreased active range of motion throughout secondary to pain. Tenderness and mild swelling noted to the dorsum of the wrist. Intact distal motor and sensory. Intact radial pulse. Skin: General: Skin is warm and dry. Neurological: General: No focal deficit present. Mental Status: She is alert and oriented to person, place, and time. Psychiatric: Mood and Affect: Mood normal. Behavior: Behavior normal. Thought Content: Thought content normal. Judgment: Judgment normal. Voice recognition software [employer]iju Direct was used to dictate and transcribe this document. Category Consultant variances may occur. Despite proofreading, typographical errors may occur. [facility] Medical Decision Making 47-year-old female presents after sustaining a fall onto the left outstretched hand. Based on history, physical exam findings, and x-ray results injury is consistent with a sprain of the hand and wrist. She may need to have a repeat x- ray in 2 weeks in order to exclude fracture not seen on today's imaging. Patient placed in a Velcro wrist splint. Prescription for lidocaine patches, prednisone, and acetaminophen sent to patient's preferred pharmacy. Given contact information for orthopedic follow-up. Given a work excuse. Risk Prescription drug management. ED Course as of 09/07/232355 Time: 09/06 2324 Comment: X-ray left wrist/hand: IMPRESSION: No acute osseous abnormality By: Roberto Corea PA Time: 09/06 149 Comment: The patient is resting comfortably and appears in no acute distress. I discussed the results of the diagnostic studies / labs, my clinical impression, and the plan for further treatment withthe patient. The patient agrees with the plan and discharge at this time, all questions addressed. The patient is medically stable for discharge at this time. I have given the patient instructions regarding their diagnosis, expectations, follow up, and return precautions. I explained to the patient that emergent conditions may arise and to return to the ERfor new, worsening, or any persistent conditions. I've explained the importance of following up with his/her Primary Care Physician- (or the referral physician listed) as instructed. The patient verbalized understanding of the discharge instructions Evaluation of the splint applied reveals excellent placement and proper immobilization. Exposed digits reveal good color. Sensation is intact. By: Roberto Corea PA Final diagnoses: Hand sprain, left, initial encounter Left wrist sprain, initial encounter Roberto Corea PA 09/07/232355 Cosigned by Jovita Maria MD at 09/08/2023 8:14 AM CDT * Moisés More RN - 09/07/2023 8:38 PM CDT Pt ambulatory to triage c/o L hand/wrist pain after falling while roller skating. Pt denies head strike or LOC. Pt unable to make fist, sling applied to injured extremity upon triage. documented in this encounter Plan of Treatment Not on file documented as of this encounter Procedures Procedure Name Priority Date/Time Associated Diagnosis Comments XR HAND LEFT 3 OR MORE VIEWS ED 09/07/2023 8:58 PM CDT XR WRIST LEFT 3 OR MORE VIEWS ED 09/07/2023 8:58 PM CDT documented in this encounter Results * XR Hand Left 3 or More Views (09/07/2023 8:58 PM CDT) Anatomical Region Laterality Modality Upper Extremities, Hand Left Computed Radiography 09/07/2023 9:11 PM CDT Narrative 09/07/2023 9:22 PM CDT EXAM DESCRIPTION: XR HAND LEFT 3 OR MORE VIEWS; XR WRIST LEFT 3 OR MORE VIEWS REASON FOR STUDY: Fall, pain ?Pt ambulatory to triage c/o L hand/wrist pain after falling while roller skating. Pt denies head strike or LOC. Pt unable to make fist, sling applied to injured extremity upon triage. ? TECHNIQUE: 3 ??radiographic view(s) of the ??left hand and 3 radiographic views of the left wrist . COMPARISON: None available. FINDINGS: BONES/JOINTS: There is normal osseous alignment. ??No acute fracture or dislocation. ??The joint spaces are maintained. SOFT TISSUES: No focal soft tissue abnormality visualized. ?? IMPRESSION: No acute osseous abnormality. THIS IS AN ELECTRONICALLY VERIFIED FINAL REPORT 09/07/2023 9:22 PM - Electronically signed by ??Denver Grey M.D. MF: IAM D: ??09/07/2023 9:22 PM T: ??09/07/2023 9:22 PM Report ID: [id number] Reading Location: ??[id number] Procedure Note Denver Greyory, DO - 09/07/2023 EXAM DESCRIPTION: XR HAND LEFT 3 OR MORE VIEWS; XR WRIST LEFT 3 OR MOREVIEWS REASON FOR STUDY: Fall, pain Pt ambulatory to triage c/o L hand/wrist pain after falling while roller skating. Pt denies head strike or LOC. Pt unable to make fist, slingapplied to injured extremity upon triage. TECHNIQUE: 3 radiographic view(s) of the left hand and 3 radiographicviews of the left wrist . COMPARISON: None available. FINDINGS: BONES/JOINTS: There is normal osseous alignment. No acute fracture or dislocation. The joint spaces are maintained. SOFT TISSUES: No focal soft tissue abnormality visualized. IMPRESSION: No acute osseous abnormality. THIS IS AN ELECTRONICALLY VERIFIED FINAL REPORT 09/07/2023 9:22 PM - Electronically signed by Denver Grey M.D. MF: IAM Report ID: [id number] Reading Location: [id number] Parag Douglas MD IMG XR PROCEDURES Final Result * XR Wrist Left 3+ views (09/07/2023 8:58 PM CDT) Anatomical Region Laterality Modality Upper Extremities, Wrist Left Compute d Radiography 09/07/2023 9:11 PM CDT Narrative 09/07/2023 9:22 PM CDT EXAM DESCRIPTION: XR HAND LEFT 3 OR MORE VIEWS; XR WRIST LEFT 3 OR MORE VIEWS REASON FOR STUDY: Fall, pain ?Pt ambulatory to triage c/o L hand/wrist pain after falling while roller skating. Pt denies head strike or LOC. Pt unable to make fist, sling applied to injured extremity upon triage. ? TECHNIQUE: 3 ??radiographic view(s) of the ??left hand and 3 radiographic views of the left wrist . COMPARISON: None available. FINDINGS: BONES/JOINTS: There is normal osseous alignment. ??No acute fracture or dislocation. ??The joint spaces are maintained. SOFT TISSUES: No focal soft tissue abnormality visualized. ?? IMPRESSION: No acute osseous abnormality. THIS IS AN ELECTRONICALLY VERIFIED FINAL REPORT 09/07/2023 9:22 PM - Electronically signed by ??Denver Grey M.D. MF: IAM D: ??09/07/2023 9:22 PM T: ??09/07/2023 9:22 PM Report ID: [id number] Reading Location: ??[id number] Procedure Note Denver Grey Iker, DO - 09/07/2023 EXAM DESCRIPTION: XR HAND LEFT 3 OR MORE VIEWS; XR WRIST LEFT 3 OR MOREVIEWS REASON FOR STUDY: Fall, pain Pt ambulatory to triage c/o L hand/wrist pain after falling while roller skating. Pt denies head strike or LOC. Pt unable to make fist, slingapplied to injured extremity upon triage. TECHNIQUE: 3 radiographic view(s) of the left hand and 3 radiographicviews of the left wrist . COMPARISON: None available. FINDINGS: BONES/JOINTS: There is normal osseous alignment. No acute fracture or dislocation. The joint spaces are maintained. SOFT TISSUES: No focal soft tissue abnormality visualized. IMPRESSION: No acute osseous abnormality. THIS IS AN ELECTRONICALLY VERIFIED FINAL REPORT 09/07/2023 9:22 PM - Electronically signed by Denver Grey M.D. MF: IAM Report ID: [id number] Reading Location: [id number] Parag Douglas MD IMG XR PROCEDURES Final Result documented in this encounter Visit Diagnoses Diagnosis Hand sprain, left, initial encounter- Primary Hand sprain, left, initial encounter Left wrist sprain, initial encounter Left wrist sprain, initial encounter documented in this encounter Discontinued Medications Medication Sig Discontinue Reason Start Date End Da te lidocaine (LIDODERM) 5 % Place 1 patch on the skin daily for 10 days Remove & discard patch within 12 hours or as directed by MD. Duplicate order 05/12/2022 09/07/2023 documented as of this encounter Active and Recently Administered Medications Times are shown in CDT. Scheduled Medication Order 09/06/2023 09/07/2023 09/08/2023 acetaminophen (TYLENOL) tablet 1,000 mg 1,000 mg, oral, Once, On Wed09/08/23 at 0018, For 1 dose 0024 (Not Given - Provider: Juanjose Seaman RN - Reason: Patient/family refused) ketorolac (TORADOL) 30 mg/mL (1 mL) injection 30 mg 30 mg, intramuscular, Once, On Wed09/07/23 at 2336, For 1 dose, Indications: Pain 2349 (Not Given - Provider: Jeni Lemus RN - Reason: Patient/family refused) documented in this encounter Orders Medications Ordered That Diogenes ht Not Have Been Administered Count Last Ordered Date First Ordered Date acetaminophen (TYLENOL) tablet 1,000 mg 1 0 09/08/2023 ketorolac (TORADOL) 30 mg/mL (1 mL) injection 30 mg 1 09/07/2023 documented in this encounter Care Teams Coal Wheeler Relationship Specialty Start Date End Date Fernando Bryant DO [address] [place] [address] PCP - General Family Medicine 06/30/23 Erna Hooper MD [address] [place] [address] Referring Physician Nephrology 12/21/22 Kwesi Hill MD [address] [place] [address] [address] [place] [address] Consulting Physician Psychiatry 03/15/23 documented as of this encounter
--- OUTSIDE RECORDS SUMMARY | 2024-06-25 09:49 | XMS_ITS | Encounter Summary ---
Author Organization [facility] Healthcare Address [address] [place] [id number] Care Team Providers Care Database Tester Name Role Phone Eliseo Lambert MD Primary Care Provider Erna Hooper MD Unavailable Kwesi Hill MD Unavailable [phone] Encounter Details Date Type Department Care Team (Late st Contact Info) Description 04/09/2023 Telephone [facility] Primary Care at [address] [place] [address] Eliseo Lambert MD [address] [place] [address] [address] [place] [address] Social History Tobacco Use Types Packs/Day Years Used Date Smoking Tobacco: Every Day Cigarettes Smokeless Tobacco: Never Alcohol Use Standard Drinks/Week Comments No 0 (1 standard drink = 0.6 oz pur e alcohol) PHQ-2 Answer Date Recorded PHQ-2 Total Score (If total score is 3 or more points, staff should administer the PHQ-9) 0 11/09/2022 Comments No Sex and Gender Information Value Date Recorded Sex Assigned at Not on file 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 HM updated. * Telephone Encounter - Alexus Lewis LPN - 04/09/2023 12:03 PM CDT Patient made aware of results. Routing to referrals. * Telephone Encounter - Alexus Lewis LPN - 04/09/2023 12:01 PM CDT ----- Message from Eliseo Lambert MD sent at 04/09/2023 11:17 AM CDT ----- Please note that your Cologuard stool test for screening for colon cancer came back negative. This means there was no DNA found in your stool that would have been concerning for a colon cancer. The recommendation is to have a repeat Cologuard stool test in 3 years following a negative Cologuard test result. documented in this encounter Plan of Treatment Not on file documented as of this encounter Visit Diagnoses Not on filedocumented in this encounter Care Teams Database Tester Relationship Specialty Start Date End Date Eliseo Lambert MD PCP - General Family Medicine 05/21/20 06/29/23 Erna Hooper MD [address] [place] [address] Referring Physician Nephrology 12/21/22 Kwesi Hill MD [address] [place] [id number] [address] [place] [id number] Consulting Physician Psychiatry 03/15/23 documented as of this encounter
--- OUTSIDE RECORDS SUMMARY | 2024-06-25 09:49 | XMS_ITS | Encounter Summary ---
Author Organization [facility] Healthcare Address [address] [place] [address] Care Team Providers Care Supervisor Instrument Mechanics Name Role Phone Rhys Alonso MD Primary Care Provider Erna Hooper MD Unavailable Kwesi Hill MD Unavailable [phone] Reason for Referral * Diagnostic Imaging (Routine) - Closed Specialty Diagnoses / Procedures Referred By Mirlande steinberg Referred To Contact Diagnoses Abnormal mammogram Procedures Diagnostic Mammogram Left W Rhys Daugherty MD [address] [place] [address] DR CHUCKY Garvin [address] [address] Phone: tel: fax: [address] [phone] Referral ID Status Reason Start Date Expiration Date Visits Re quested Visits Authorized [id number] Closed 04/23/2023 05/22/2024 1 1 UP MACHINE OPERATOR Reason for Visit * Diagnostic Imaging (Routine) - Closed Specialty Diagnoses / Procedures Referred By Mirlande steinberg Referred To Contact Diagnoses Abnormal mammogram Procedures Diagnostic Mammogram Left W Rhys Daugherty MD [address] [facility] [address] CHUCKY Garvin [address] [address] Phone: tel: fax: [address] [phone] Referral ID Status Reason Start Date Expiration Date Visits Re quested Visits Authorized [id number] Closed 04/23/2023 05/22/2024 1 1 Encounter Details Date Type Department Care Team (Latest Contact Info) Description 06/09/2023 11:00 AM BACK UP MACHINE OPERATOR - 06/09/2023 11:59 PM BACK UP MACHINE OPERATOR Hospital Encounter [facility] [address] [place] [id number] Abnormal mammogram Discharge Disposition: Discharge to home or self [...] 0 04/21/2023 Personal Safety Answer Date Recorded Getting School Help Needed Denies 06/08 Comments No Sex and Gender Information Value Date Recorded Sex Assigned at Not on file Legal Sex Female 1:17 AM BACK UP MACHINE OPERATOR Gender Identity Not on file Sexual Orientation Not on file 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 10 patch 05/12/20 22 024 documented as of this encounter Discharge Disposition Disposition Code Departure Means Destination Discharge to home or self care documented in this encounter Plan of Treatment Not on file documented as of this encounter Procedures Procedure Name Priority Date/Time Associated Diagnosis Comments DIAGNOSTIC MAMMOGRAM LEFT W MARIVEL Schedule Routine, Read Routine (OP Routine) 06/09/2023 11:20 AM BACK UP MACHINE OPERATOR Abnormal mammogram documented in this encounter Results * Diagnostic Mammogram Left W Marivel (06/09/2023 11:20 AM BACK UP MACHINE OPERATOR) Anatomical Region Laterality Modality Breast Left Mammography 06/09/2023 11:2 7 AM BACK UP MACHINE OPERATOR Impressions 06/09/2023 11:27 AM BACK UP MACHINE OPERATOR 1. ??The left breast asymmetry on screening mammogram represents benign dense breast tissue. 2. ??No mammographic evidence of malignancy in the left breast. Annual screening mammography is recommended, for which the patient will be due on 04/21/2024. ??The patient has been notified of these findings and impression. BI-RADS: 1 - Negative. Electronically signed by: Michael Uribe M.D. Narrative 06/09/2023 11:27 AM BACK UP MACHINE OPERATOR EXAMINATION: DIAGNOSTIC MAMMOGRAM LEFT W MARIVEL ORDERING HEALTHCARE PROVIDER: RHYS ALONSO HISTORY: 47-year-old female recalled for a left breast asymmetry on screening mammogram. COMPARISON: ??Mammograms from 04/20/2023 and 08/02/2021 TECHNIQUE: Full field MLO and LM views and spot compression MLO view of the left breast were obtained with digital technique using breast tomosynthesis with C view. Computer aided detection was utilized. FINDINGS: DENSITY: ??The left breast is heterogeneously dense, which makes or small masses. BREAST: ??The left breast asymmetry central to the posterior nipple line, mid to posterior depth, on the MLO view disperses with spot compression, evidence of benign superimposed dense tissue. ??There is no suspicious finding in the left breast on mammogram. us Rhys Alonso MD IMG MAMMO PROCEDURES Fi nal Result documented in this encounter Visit Diagnoses Diagnosis Abnormal mammogram Abnormal mammogram, unspecified documented in this encounter Care Teams Supervisor Instrument Mechanics Relationship Specialty Start Date End Date Rhys Alonso MD PCP - General Family Medicine 05/21/20 06/29/23 Erna Hooper MD [id number] [address] Referring Physician Nephrology 12/21/22 Kwesi Hill MD [address] [place] [address] [address] [place] [address] Consulting Physician Psychiatry 03/15/23 documented as of this encounter
--- OUTSIDE RECORDS SUMMARY | 2024-06-25 09:49 | XMS_ITS | Clinical Summary ---
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 Name Role Phone Erna Hooper MD Unavailable Kwesi Hill MD Unavailable [phone] Fernando Bryant DO Primary Care Provider [phone] Allergies Active Allergy Reactions Criticality Noted Date Comments Dextromethorphan Itching Low 03/03/2020 Itching Guaifenesin Anaphylaxis High 04/07/2018 Ibuprofen Nausea only Low 04/19/2018 Nitrofurantoin Hives,Unknown Medium 05/17/2014 Oxybutynin Hives,Unknown Medium 05/17/2014 Pravastatin Nausea only,Vomiting High Reaction: Nausea, Vomiting, Pseudoephedrine Palpitations Low 11/20/2017 Sulfa (Sulfonamide Antibiotics) Stomach upset Low 03/03/2020 Stomach/GI Upset Sulfamethoxazole-Trimetho prim Hives High 11/20/2017 Tramadol Other (See comments) Low 04/07/2018 Heart race Hydrocodone-Acetaminophen Vomiting Low 04/04/2020 Yellow Dye Itching Low 03/03/2020 Itching Medications buPROPion XL (WELLBUTRIN XL) 300 mg 24 hr tablet Take 1 tablet (300 mg total) by mouth every morning 020 Active blood glucose diagnostic stripIndications:type 2 diabetes mellitus Please use twice daily to check BG measurements with compatible glucometer. 100 each 1 Active OneTouch Verio Flex meter misc Active albuterol HFA (ProAir HFA) 90 mcg/actuation inhalerIndications:Bron chitis Inhale 2 puffs every 4 (four) hours as needed for wheezing or shortness of breath 8.5 g 021 Active ondansetron ODT (ZOFRAN-ODT) 4 mg disintegrating tablet Take 1 tablet (4 mg total) by mouth every 8 (eight) hours as needed for nausea or vomiting 20 tablet 022 Active Additional Information Patient taking differently:4 mg oralAs needed, nausea, vomiting, Reported on 12/02/2022 cholecalciferol (VITAMIN D-3) 5,000 unit capsuleIndications:Giselle min D deficiency TAKE ONE CAPSULE BY MOUTH EVERY DAY 90 capsule 3 023 Active clonazePAM (KlonoPIN) 0.5 mg tablet as needed 023 Active atorvastatin (LIPITOR) 20 mg tabletIndications:Pure hypercholesterolemia Take 1 tablet (20 mg total) by mouth daily 90 tablet 1 023 Active spironolactone (ALDACTONE) 50 mg tabletIndications:Cysti c acne vulgaris TAKE 1 TABLET BY MOUTH EVERY DAY 90 tablet 2 023 Active lidocaine (LIDODERM) 5 %Indications:Hand sprain, left, initial encounter,Left wrist sprain, initial encounter Place 1 patch on the skin daily Placed over area of maximal intensity pain as directed. Remove & discard patch within 12 hours or as directed by . 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 She has had this since she was about 14-15 years of age. She has had an EGD several years ago with no all significant abnormal findings and she has also tried ifbj-rgi-scdxono medications including as reflux medication and has x without any resolution. Gastroesophageal reflux disease 01/08/2022 Assessment & Plan (03/15/2023 12:35 PM CDT): - chronic, controlled - no longer on Pantoprazole DR 40 mg daily, told to stop using it by her enterprise infrastructure architect - now using TUMS as needed only - has history of cholecystectomy - has nausea medication for PRN use - continue current management Recommend the following changes: - Avoid trigger foods (such as spicy foods, fried foods, onions, peppermints, chocolate, high acid foods and juices, caffeinated beverages, carbonated beverages, and tomato based products). - Avoid alcohol take. - Avoid routine use of NSAIDs. - Avoid lying down for 2-3 hours after eating. - Weight loss encouraged. - Eat smaller meals. - Avoid tobacco use. - Sleep on left side. - may sleep with bed propped. - Avoid wearing tight clothing that puts pressure on the stomach. Assessment & Plan (05/18/2022 12:37 AM CAREER CENTER ADVISOR): - chronic, controlled - currently on Pantoprazole DR 40 mg daily - has history of cholecystectomy - has nausea medication for PRN use - continue current management Recommend the following changes: - Avoid trigger foods (such as spicy foods, fried foods, onions, peppermints, chocolate, high acid foods and juices, caffeinated beverages, carbonated beverages, and tomato based products). - Avoid alcohol take. - Avoid routine use of NSAIDs. - Avoid lying down for 2-3 hours after eating. - Weight loss encouraged. - Eat smaller meals. - Avoid tobacco use. - Sleep on left side. - may sleep with bed propped. - Avoid wearing tight clothing that puts pressure on the stomach. Assessment & Plan (01/13/2022 11:12 AM CDT): - recent diagnosis, significantly improved - currently on Pantoprazole DR 40 mg daily - has history of cholecystectomy - has nausea medication for PRN use - continue current management - would like to change dose and type of PPI down the road Recommend the following changes: - Avoid trigger foods (such as spicy foods, fried foods, onions, peppermints, chocolate, high acid foods and juices, caffeinated beverages, carbonated beverages, and tomato based products). - Avoid alcohol take. - Avoid routine use of NSAIDs. - Avoid lying down for 2-3 hours after eating. - Weight loss encouraged. - Eat smaller meals. - Avoid tobacco use. - Sleep on left side. - may sleep with bed propped. - Avoid wearing tight clothing that puts pressure on the stomach. Chronic RUQ pain 01/06/2021 Assessment & Plan (01/06/2021 10:25 PM CDT): - s/p cholecystectomy around 2017 - still her intermittent RUQ pain from time to time even after cholecystectomy - s/p CT of abdomen on 05/2020 with no abnormal findings S/P tubal ligation 01/06/2021 CKD (chronic kidney disease) stage 2, GFR 60-89 ml/min 09/20/2020 Assessment & Plan (03/15/2023 12:34 PM CDT): - chronic condition, stable - has family hx of kidney disease in her Paternal Aunt, Paternal grandmother and Paternal Uncle - currently she has CKD stage 2 - requested referral and established with Nephrology - has US kidney complete pending - continue current management Chemistry Lab Results Component Value Date SODIUM 141 12/02/2022 POTASSIUM 4.4 12/02/2022 CHLORIDE 105 12/02/2022 CO2 30 12/02/2022 ANIONGAP 6 12/02/2022 BUNSER 12 12/02/2022 CREATININE 1.01 12/02/2022 GLUCOSE 99 12/02/2022 CALCIUM 9.6 12/02/2022 BILITOT 0.6 11/01/2022 PROTEIN 7.9 04/01/2017 ALBUMIN 4.7 12/02/2022 GFRNAA 68 (L) 12/02/2022 ALKPHOS 92 11/01/2022 AST 25 11/01/2022 ALT 15 11/01/2022 PHOS 3.5 12/02/2022 Assessment & Plan (11/09/2022 8:51 AM CDT): - chronic condition - has family hx of kidney disease in her Paternal Aunt, Paternal grandmother and Paternal Uncle - currently she has CKD stage 2 - recently noted her GFR fluctuating, requesting referral to nephrology - referral [facility] to [facility] Chemistry Lab Results Component Value Date SODIUM 141 11/01/2022 POTASSIUM 4.2 11/01/2022 CHLORIDE 102 11/01/2022 CO2 30 11/01/2022 ANIONGAP 9 11/01/2022 BUNSER 8 11/01/2022 CREATININE 1.02 11/01/2022 GLUCOSE 89 11/01/2022 CALCIUM 10.3 11/01/2022 BILITOT 0.6 11/01/2022 PROTEIN 7.9 04/01/2017 ALBUMIN 4.9 11/01/2022 GFRNAA 67 11/01/2022 ALKPHOS 92 11/01/2022 AST 25 11/01/2022 ALT 15 11/01/2022 PHOS 3.4 09/26/2021 Assessment & Plan (11/09/2022 8:57 AM CDT): - chronic condition - has family hx of kidney disease in her Paternal Aunt, Paternal grandmother and Paternal Uncle - currently she has CKD stage 2 - noted fluctuating GFR on most recent lab work via ED, concerned and requesting referral to nephrology, referral placed Chemistry Lab Results Component Value Date SODIUM 141 11/01/2022 POTASSIUM 4.2 11/01/2022 CHLORIDE 102 11/01/2022 CO2 30 11/01/2022 ANIONGAP 9 11/01/2022 BUNSER 8 11/01/2022 CREATININE 1.02 11/01/2022 GLUCOSE 89 11/01/2022 CALCIUM 10.3 11/01/2022 BILITOT 0.6 11/01/2022 PROTEIN 7.9 04/01/2017 ALBUMIN 4.9 11/01/2022 GFRNAA 67 11/01/2022 ALKPHOS 92 11/01/2022 AST 25 11/01/2022 ALT 15 11/01/2022 PHOS 3.4 09/26/2021 Assessment & Plan (03/23/2022 8:42 PM CDT): GFR 70 in September. Reviewed last labs. Will repeat BMP today Assessment & Plan (09/26/2021 10:17 AM CDT): - chronic, stable - has family hx of kidney disease in her Paternal Aunt, Paternal grandmother and Paternal Uncle - currently she has CKD stage 2 - no significant risk factors in her - will consider obtaining US of kidneys in future - continue monitoring regularly Chemistry Lab Results Component Value Date SODIUM 140 06/02/2021 POTASSIUM 4.1 06/02/2021 CHLORIDE 104 06/02/2021 CO2 26 06/02/2021 ANIONGAP 10 06/02/2021 BUNSER 10 06/02/2021 CREATININE 0.87 06/02/2021 GLUCOSE 78 06/02/2021 CALCIUM 9.4 06/02/2021 BILITOT 0.3 06/02/2021 PROTEIN 7.9 04/01/2017 ALBUMIN 4.4 06/02/2021 GFRNAA 79 06/02/2021 ALKPHOS 95 06/02/2021 AST 28 06/02/2021 ALT 9 06/02/2021 Assessment & Plan (07/14/2021 12:09 PM CAREER CENTER ADVISOR): - chronic, stable - has family hx of kidney disease in her Paternal Aunt, Paternal grandmother and Paternal Uncle - currently she has CKD stage 2 - no significant risk factors in her - will consider obtaining US of kidneys in future - continue monitoring regularly Chemistry Lab Results Component Value Date SODIUM 140 06/02/2021 POTASSIUM 4.1 06/02/2021 CHLORIDE 104 06/02/2021 CO2 26 06/02/2021 ANIONGAP 10 06/02/2021 BUNSER 10 06/02/2021 CREATININE 0.87 06/02/2021 GLUCOSE 78 06/02/2021 CALCIUM 9.4 06/02/2021 BILITOT 0.3 06/02/2021 PROTEIN 7.9 04/01/2017 ALBUMIN 4.4 06/02/2021 GFRNAA 79 06/02/2021 ALKPHOS 95 06/02/2021 AST 28 06/02/2021 ALT 9 06/02/2021 Assessment & Plan (01/06/2021 1:31 PM CDT): - patient states she has family hx of kidney disease in her Paternal Aunt, Paternal grandmother and Paternal Uncle - currently she has CKD stage 2 - unclear why given no significant risk factors in her - will consider obtaining US of kidneys in future - recheck renal function Assessment & Plan (09/20/2020 12:26 PM CDT): - medical chart reviewed - patient states she has family hx of kidney disease in her Paternal Aunt, Paternal grandmother and Paternal Uncle - currently she has CKD stage 2 - unclear why given no significant risk factors in her - will consider obtaining US of kidneys in future Vitamin D deficiency 09/19/2020 Assessment & Plan (07/14/2021 12:11 PM CAREER CENTER ADVISOR): - chronic, improved but not at goal - Noted on 08/2020 - Vit D Level 17 --> 28 - improved control since last time - completed weekly high dose vitamin D - currently on 2000 international units Vitamin D3 daily--> increase to 5000 international units Vitamin D3 daily - new script sent Assessment & Plan (06/02/2021 10:15 AM CAREER CENTER ADVISOR): - chronic, improved - Noted on 08/2020 - Vit D Level 17 --> 28 - improved control since last time - completed weekly high dose vitamin D - taking low dose daily vitamin D supplementation - check levels prior to next visit, order placed Assessment & Plan (02/27/2021 12:07 PM CDT): - Noted on 08/2020 - Vit D Level 17 --> 28 - improved control since last time - completed weekly high dose vitamin D - not taking low dose daily vitamin D supplementation - reminded of her of the need to take it Assessment & Plan (01/06/2021 1:34 PM CDT): - Noted on 08/2020 - Vit D Level 17 - discussed new finding of vitamin D deficiency - it can be associated with fatigue and tiredness and muscle ache - completed weekly high dose vitamin D - not taking low dose daily vitamin D supplementation - reminded of her of the need to take it Assessment & Plan (09/20/2020 12:25 PM CDT): - Noted on 08/2020 - Vit D Level 17 - discussed new finding of vitamin D deficiency - it can be associated with fatigue and tiredness and muscle ache - see orders placed for this S/P laparoscopic cholecystectomy 09/18/2020 Alternating constipation and diarrhea 09/18/2020 Assessment & Plan (03/15/2023 12:34 PM CDT): - chronic condition, improved - since she had cholecystectomy - worse with fatty foods - recently had a prolonged diarrhea that just resolved on its own - reports history of IBS in multiple family members - referral placed to GI in the past, has never had a colonoscopy - symptoms improved since she started taking probiotic supplement OTC Assessment & Plan (11/09/2022 8:52 AM CDT): - chronic condition - since she had cholecystectomy - worse with fatty foods - recently had a prolonged diarrhea that just resolved on its own - reports history of IBS in multiple family members - referral placed to GI, has never had a colonoscopy - recently prescribed her cholestyramine when she was having acute diarrhea but resolved on its own, for constipation aware she can use Imodium and other options for it Assessment & Plan (09/18/2020 4:11 PM CDT): - since she had cholecystectomy - worse with fatty foods - does not use medication for it, aware she can use Imodium and other options for it Degenerative disc disease at L5-S1 level 020 Overview (06/10/2020): - noted on Abd/pelvis CT on 05/2020 PTSD (post-traumatic stress disorder) 05/21/2020 Assessment & Plan (05/18/2022 12:37 AM CAREER CENTER ADVISOR): - chronic, controlled - following with psychiatry - currently on clonazepam and wellbutrin at this time - she has tried other medications without good outcomes - continue current management Assessment & Plan (05/21/2020 3:54 PM CAREER CENTER ADVISOR): - following with psychiatry - currently on clonazepam and wellbutrin at this time - she has tried other medications without good outcomes Cystic acne vulgaris 05/21/2020 Assessment & Plan (03/15/2023 12:08 PM CDT): - chronic, well controlled - used to follow with dermatology - she has used isotretinoin before - currently on Spirinolactone 50 mg daily - aware that medication can lower BP with the medication - continue current therapy Assessment & Plan (01/13/2022 11:08 AM CDT): - chronic, well controlled - used to follow with dermatology - she has used isotretinoin before - currently on Spirinolactone 50 mg daily - aware that medication can lower BP with the medication - continue current therapy Assessment & Plan (06/02/2021 8:41 AM CAREER CENTER ADVISOR): - chronic, well controlled - used to follow with dermatology - she has used isotretinoin before - she understands the risks of lowering BP with the medication - currently on Spirinolactone 50 mg daily - continue current therapy Assessment & Plan (09/18/2020 4:10 PM CDT): - used to follow with dermatology - she has used isotretinoin before - she understands the risks of lowering BP with the medication - Spirinolactone 100 mg daily - recommend that patient start takign half of the 100 mg Spironolactone moving forward Assessment & Plan (05/21/2020 4:15 PM CAREER CENTER ADVISOR): - used to follow with dermatology - she has used isotretinoin before - she understands the risks of lowering BP with the medication Numbness and tingling of right arm 04/04/2020 Assessment & Plan (04/04/2020 4:18 PM CDT): Patient's cites paresthesia in the right arm associated with some subjective weakness. She has reported prior paresthesia in her right face and right leg from time to time on associated with her present complaints. Neuroimaging of the brain and spine are un revealing of lesions suggesting primary demyelination. Pure hypercholesterolemia 11/11/2013 Assessment & Plan (03/15/2023 12:09 PM CDT): - chronic, controlled - most recent LDL as shown below - has been on Atorvastatin 20 mg since 06/17 - most recent LDL as shown below, result shown below - continue with current therapy - repeat labs, order placed Lab Results Component Value Date HDL 71 05/06/2022 HDL 68 09/26/2021 HDL 62 01/06/2021 Lab Results Component Value Date LDLCALC 110 05/06/2022 LDLCALC 74 09/26/2021 LDLCALC 173 (H) 01/06/2021 Assessment & Plan (05/18/2022 12:35 AM CAREER CENTER ADVISOR): - chronic, controlled - worse, increase noted - most recent LDL as shown below - has been on Atorvastatin 20 mg since 06/17 - most recent LDL as shown below, result shown below - continue with current therapy - repeat labs, on next visit Lab Results Component Value Date HDL 71 05/06/2022 HDL 68 09/26/2021 HDL 62 01/06/2021 Lab Results Component Value Date LDLCALC 110 05/06/2022 LDLCALC 74 09/26/2021 LDLCALC 173 (H) 01/06/2021 Assessment & Plan (02/11/2022 5:40 AM CDT): - chronic, well controlled - most recent LDL as shown below - has been on Atorvastatin 20 mg since 06/17 - recheck Lipid panel before next visit - most recent LDL as shown below, result shown below - continue with current therapy Lab Results Component Value Date LDLCALC 74 09/26/2021 Assessment & Plan (01/08/2022 2:33 PM CDT): - chronic, well controlled - most recent LDL as shown below - has been on Atorvastatin 20 mg since 06/17 - recheck Lipid panel before next visit - most recent LDL as shown below, result shown below - continue with current therapy Lab Results Component Value Date LDLCALC 74 09/26/2021 Assessment & Plan (10/05/2021 2:22 PM CDT): - chronic, well controlled - most recent LDL as shown below - has been on Atorvastatin 20 mg since 06/17 - recheck Lipid panel before next visit - most recent LDL as shown below, result shown below - continue with current therapy Lab Results Component Value Date LDLCALC 173 (H) 01/06/2021 Assessment & Plan (07/14/2021 12:10 PM CAREER CENTER ADVISOR): - chronic, not at goal - most recent LDL as shown below, worsening - has been on Atorvastatin 20 mg since 06/17 - recheck Lipid panel before next visit - most recent LDL as shown below Lab Results Component Value Date LDLCALC 173 (H) 01/06/2021 Assessment & Plan (06/02/2021 10:14 AM CAREER CENTER ADVISOR): - chronic, not well controlled - most recent LDL as shown below, worsening - she was started Atorvastatin 20 mg 03/27/21 but only started taking medication 1 weeka go - recheck Lipid panel in 3 months - most recent LDL as shown below Lab Results Component Value Date LDLCALC 173 (H) 01/06/2021 Assessment & Plan (03/31/2021 4:41 AM CDT): - noted on most recent lipid panel, per patient chronic condition - most recent LDL as shown below, worsening - previously had recommending starting cholestrol lowering medication and had opted to do lifestyle only - at this time recommend again, patient willing - start Atorvastatin 20 mg 03/27/21 - recheck Lipid panel in 3 months - most recent LDL as shown below Lab Results Component Value Date LDLCALC 173 (H) 01/06/2021 Assessment & Plan (03/07/2021 6:31 AM CDT): - worsening with elevated LDL - noted on most recent lipid panel, per patient chronic condition - recommend lifestyle intervention - on prior visit, we discussed option of starting a statin but shared decision making was made to defer it - most recent LDL as shown below - LDL 150 --> 173 - has family hx of hyperlipidemia - ascvd risk score is still low - discussed with her that is It increased to LDL 190 I recommend starting her on a moderate intensity statin Lab Results Component Value Date LDLCALC 173 (H) 01/06/2021 - The 10-year ASCVD risk score (Dianne GHORTA Jr., et al., 2013) is: 2.8% Values used to calculate the score: Age: 45 years Sex: Female Is Non- : No Diabetic: No Tobacco smoker: Yes Systolic Blood Pressure: 110 mmHg Is BP treated: No HDL Cholesterol: 62 mg/dL Total Cholesterol: 258 mg/dL Assessment & Plan (01/06/2021 1:30 PM CDT): - noted on most recent lipid panel, per patient chronic condition - most recent LDL as shown below Lab Results Component Value Date LDLCALC 150 (H) 09/18/2020 - The 10-year ASCVD risk score (Dianne GHOTRA Jr. et al., 2013) is: 2.2% Values used to calculate the score: Age: 45 years Sex: Female Is Non- : No Diabetic: No Tobacco smoker: Yes Systolic Blood Pressure: 110 mmHg Is BP treated: No HDL Cholesterol: 70 mg/dL Total Cholesterol: 246 mg/dL - recommend lifestyle intervention - on prior visit, we discussed option of starting a statin but shared decision making was made to defer it at this time Assessment & Plan (09/20/2020 12:31 PM CDT): - noted on most recent lipid panel, per patient chronic condition - LDL 150 - The 10-year ASCVD risk score (Dianne GHOTRA Jr. et al., 2013) is: 0.6% Values used to calculate the score: Age: 45 years Sex: Female Is Non- : No Diabetic: No Tobacco smoker: No Systolic Blood Pressure: 102 mmHg Is BP treated: No HDL Cholesterol: 70 mg/dL Total Cholesterol: 246 mg/dL - recommend lifestyle intervention - discussed option of starting a statin but shared decision making was made to defer it at this time Assessment & Plan (05/21/2020 4:05 PM CAREER CENTER ADVISOR): - noted on most recent lipid panel - mildly elevated LDL and triglyceride - The 10-year ASCVD risk score (Dianne GHOTRA Jr. et al., 2013) is: 0.5% Values used to calculate the score: Age: 44 years Sex: Female Is Non- : No Diabetic: No Tobacco smoker: No Systolic Blood Pressure: 100 mmHg Is BP treated: No HDL Cholesterol: 63 mg/dL Total Cholesterol: 215 mg/dL - recommend lifestyle intervention Generalized anxiety disorder 08/18/2010 Assessment & Plan (03/15/2023 12:20 PM CDT): - chronic history, controlled - follows with psychiatry, Dr. Hill - anxiety is controlled - depression is controlled - currently on wellbutrin XL 300 mg daily - has clonazepam 0.5 mg daily as needed only, infrequent use - has coexisting anxiety - she has Tried Lexparo, Citalopram, Sertraline, in the past - continue current management Lab Results Component Value Date TSH 3.21 05/06/2022 Assessment & Plan (05/18/2022 12:38 AM CAREER CENTER ADVISOR): - chronic history, controlled - follows with psychiatry, Dr. Hill - anxiety is controlled - depression is controlled - currently on wellbutrin XL 300 mg daily ,trazodone 50 mg nightly PRN - has coexisting anxiety - she has Tried Lexparo, Citalopram, Sertraline, in the past - continue current management Lab Results Component Value Date TSH 3.21 05/06/2022 Assessment & Plan (02/11/2022 5:41 AM CDT): - chronic history, controlled - follows with psychiatry, Dr. Hill - anxiety is controlled - depression is controlled - currently on wellbutrin XL 300 mg daily ,trazodone 50 mg nightly PRN - has coexisting anxiety, on Klonopin 0.5mg BID PRN only, infrequent use - she has Trazodone 50 mg nightly PRN only - she has Tried Lexparo, Citalopram, Sertraline, in the past - continue current management Lab Results Component Value Date TSH 3.24 06/02/2021 Assessment & Plan (01/08/2022 2:44 PM CDT): - chronic history, controlled - follows with psychiatryDr. Hill - anxiety is controlled - depression is controlled - has coexisting anxiety, on Klonopin 0.5mg BID PRN only - she has Trazodone 50 mg nightly PRN onlyu - she has Tried Lexparo, Citalopram, Sertraline, - continue current management Lab Results Component Value Date TSH 3.24 06/02/2021 Assessment & Plan (06/02/2021 8:47 AM CAREER CENTER ADVISOR): - chronic history, worsening - follows with psychiatry, Dr. Hill - anxiety is not well controlled - depression is not well controlled - has coexisting anxiety, on Klonopin 0.5mg BID PRN only - she does not take Trazodone 50 mg nightly - she has Tried Lexparo, Citalopram, Sertraline, - recommend discussing with psychiatry for changes in medications Assessment & Plan (02/27/2021 12:06 PM CDT): - follows with psychiatry - currently on Wellbutrin XL 300 mg daily And Klonopin 0.5mg BID PRN - uses it sporadically only, not taking it daily - well managed with current medications Assessment & Plan (05/21/2020 3:57 PM CAREER CENTER ADVISOR): - follows with psychiatry - currently on Wellbutrin And Klonopin - well managed with current medications Moderate episode of recurrent major depressive d isorder 08/18/2010 Assessment & Plan (03/15/2023 12:19 PM CDT): - chronic history, controlled - follows with psychiatry, Dr. Hill - anxiety is controlled - depression is controlled - currently on wellbutrin XL 300 mg daily - has coexisting anxiety, on Klonopin 0.5mg BID PRN only, infrequent use - she has Tried Lexparo, Citalopram, Sertraline, in the past - continue current management Lab Results Component Value Date TSH 3.21 05/06/2022 Assessment & Plan (02/11/2022 5:41 AM CDT): - chronic history, controlled - follows with psychiatryDr. Hill - anxiety is controlled - depression is controlled - currently on wellbutrin XL 300 mg daily ,trazodone 50 mg nightly PRN - has coexisting anxiety, on Klonopin 0.5mg BID PRN only, infrequent use - she has Trazodone 50 mg nightly PRN only - she has Tried Lexparo, Citalopram, Sertraline, in the past - continue current management Lab Results Component Value Date TSH 3.24 06/02/2021 Assessment & Plan (01/08/2022 2:44 PM CDT): - chronic history, controlled - follows with psychiatry, Dr. Hill - anxiety is controlled - depression is controlled - has coexisting anxiety, on Klonopin 0.5mg BID PRN only - she has Trazodone 50 mg nightly PRN onlyu - she has Tried Lexparo, Citalopram, Sertraline, - continue current management Lab Results Component Value Date TSH 3.24 06/02/2021 Assessment & Plan (06/02/2021 8:46 AM CAREER CENTER ADVISOR): - chronic history, worsening - follows with psychiatry, Dr. Hill - anxiety is not well controlled - depression is not well controlled - has coexisting anxiety, on Klonopin 0.5mg PRN only - she does not take Trazodone 50 mg nightly - she has Tried Lexparo, Citalopram, Sertraline, - recommend discussing with psychiatry for changes in medications Assessment & Plan (05/21/2020 3:56 PM CAREER CENTER ADVISOR): - chronic history - follows with psychiatry - well controlled with current wellbutrin Psychophysiological insomnia 09/03/2009 Assessment & Plan (03/15/2023 12:19 PM CDT): - chronic, not at goal - no longer on trazodone 50 mg nightly PRN only, di dnot like medication she was on - follows and managed with psychiatry - Dr. Hill - continue with managed from psychiatry Assessment & Plan (02/11/2022 5:42 AM CDT): - chronic, stable - trazodone 50 mg nightly PRN only - follows with psychiatry - Dr. Hill - continue with current medication Assessment & Plan (01/08/2022 2:46 PM CDT): - chronic, stable - trazodone 50 mg nightly PRN only - follows with psychiatry - Dr. Hill - continue with current medication Assessment & Plan (05/21/2020 3:58 PM CAREER CENTER ADVISOR): - has insomnia, she has been prescribed medication but she does not use it - she does not recall the name of the medications Inflammatory polyarthropathy (CMS/HCC) 0 Resolved Problems Problem Noted Date Diagnosed Date Resolved Date Chest pain 05/18/2022 03/15/2023 Assessment & Plan (05/18/2022 12:40 AM CAREER CENTER ADVISOR): - new diagnosis - reports dull pain in left chest at times goes into her left shoulder - reports on and off for 3 years - has Family hx of CAD in her father, active tobacco smoker and has pure hypercholesterolemia - at times it occurs with anxiety, but can be at rest or with activity, no relationship -can last for about 30 minutes - will obtain ECG, order placed ECG completed with findings as documented below Vent Rate: 73 bpm RR Interval: 819 msec ND Interval: 166 msec QRS Duration: 78 msec QT Interval: 335 msec QTC Interval: 360 msec P-R-T Milligan: 48 - 24 - 54 degrees SINUS RHYTHM NORMAL ECG - will proceed with exercises stress test, order placed Need for influenza vaccination 03/23/2022 03/15/2023 Encounter for routine adult physical exam with abnormal findings 03/23/2022 03/15/2023 Assessment & Plan (03/23/2022 8:42 PM CDT): Patient Counseling: --Nutrition: Stressed importance of moderation in sodium/caffeine intake, saturated fat and cholesterol, caloric balance, sufficient intake of fresh fruits, vegetables, --Exercise: Stressed the importance of regular exercise. --Continue routine dental and vision visits --Immunizations reviewed and offered- updated influenza today --Discussed benefits of screening colonoscopy.- -utd --females- mammograms -utd -Routine labs/ screenings ordered Cervical strain, subsequent encounter 12/03/2020 02/11/2022 Assessment & Plan (07/14/2021 12:08 PM CAREER CENTER ADVISOR): - chronic, since injury at work - initial occurrence several months ago - neck pain, stiffness present but able to work - XR of thoracic and cervical spine was already done and has been reviewed - has finished physical therapy which has helped, declined additional physical therapy that was ordered on last visit - at this visit can return to work without restriction - used flexeril 10 mg PRN - continue current therapy Assessment & Plan (06/02/2021 10:16 AM CAREER CENTER ADVISOR): - chronic, since injury at work several months ago - initial occurrence several months ago - neck pain, stiffness much improved but still having pain, discomfort and decreased range of motion along with headaches - XR of thoracic and cervical spine was already done and has been reviewed - has finished physical therapy which has helped, restart another cycle of PT - continue with light duty for next 6 weeks Assessment & Plan (03/31/2021 4:44 AM CDT): - not at goal, has greatly improved - initial occurrence several months ago - neck pain, stiffness much improved - XR of thoracic and cervical spine was already done and has been reviewed - has finished physical therapy which has helped - I will clear her to return to work 5 days a week with restriction of no more lifting weight over 15 lbs - follow up in 2 months Assessment & Plan (03/07/2021 6:29 AM CDT): - not at goal, stable - neck pain, stiffness - XR of thoracic and cervical spine was already done and has been reviewed - currently doing Physical therapy after approval from workplace - has a number of sessions left, has seen some improvement but not at goal - I will clear her to return to work with restriction and 3 days a week for now - follow up in 1 months Assessment & Plan (01/27/2021 11:57 AM CDT): - not at goal, stable - neck pain, stiffness - XR of thoracic and cervical spine was already done and has been reviewed - recently started Physical therapy after approval from workplace - due to recent COVID-19 diagnosis and personal matters has only had one session - continue with use of NSAID as needed and Muscle relaxer as needed - would like her to get several PT sessions before returning to work - 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 Assessment & Plan (01/07/2021 9:16 AM CDT): - not at goal, stable - neck pain, stiffness and headaches a - XR of thoracic and cervical spine was already done and has been reviewed - has already been referred to PT, but waiting to see to do it via workplace comp - discussed not doing PT as soon as possible will delay improvement - continue with use of NSAID as needed and Muscle relaxer as needed - ok to be off work in mean time, will reevaluate in 4 weeks Assessment & Plan (12/03/2020 4:56 AM CDT): - currently off narcotic pain medications - some improvement noted on this visit on Range of motion - also having more headaches that have become more frequent - XR of thoracic and cervical spine was already done and has been reviewed - has already been referred to PT, but waiting to see to do it via workplace comp - discussed not doing PT as soon as possible will delay improvement - continue with use of NSAID - increased Naproxen from 375 mg --> 500 mg BID PRN - continue with use of muscle relaxer Flexeril 10 mg nightly PRN - ok to be off work in mean time, will reevaluate in 4 weeks Macrocytosis without anemia 09/19/2020 07/14/2021 Assessment & Plan (02/27/2021 12:05 PM CDT): - Folate and B12 level normal - TSH normal Lab Results Component Value Date WBC 5.8 01/06/2021 HGB 13.0 01/06/2021 HCT 38.9 01/06/2021 MCV 97.3 (H) 01/06/2021 LABPLAT 283 01/06/2021 Weakness of right arm 04/04/20202020 Assessment & Plan (04/04/2020 4:18 PM CDT): Patient provides a several week history of subjective weakness and fluctuant numbness throughout the right arm after awakening 1 morning. Neuroimaging of the brain, cervical, thoracic, and lumbar spines are unrevealing. She has noticed some spontaneous improvement. 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 I do not see any objective weakness today on her examination and sensation appears preserved to modality testing. Reflexes are symmetric. I will refer her for neurophysiologic assessment of the right upper extremity, and I plan on seeing her back thereafter. Myopathy 09/03/2009 05/22/2020 Overview (10/02/2016): MYALGIA AND MYOSITIS NOS Immunizations Name Administration Dates Next Due Flucelvax Influenza Quad 08/01/2018 Hep B Vaccine 02/03/2019,10/05/2018,08/03/2018 Influenza, Quadrivalent, Spl it, Intramuscular 05/28/2019,04/08/2017,03/18/2016 Influenza, Quadrivalent, Spl it, Preservative Free, Intramuscular 03/23/2022,04/27/2019,03/28/2018 Influenza, Trivalent, Preser vative Free, Intramuscular 07/28/2011 Influenza, Unspecified 03/28/2021(Deferr ed: Patient Refused),03/28/2021(Deferred: Patient Refused),03/27/2021(Deferred: Patient Refused),02/26/2021(Deferred: Patient Refused),05/21/2020(Deferred: Patient Refused),03/28/2020(Deferred: Patient Refused),03/28/2020(Deferred: Patient Refused),03/28/2020(Deferred: Patient Refused),03/28/2020(Deferred: Patient Refused),03/28/2020(Deferred: Patient Refused),03/28/2020(Deferred: Patient Refused) MMR 10/05/2018,08/03/2018 TD Preservative Free 09/03/2009 Tdap 06/28/2008 Surgical History Surgery Date Site/Laterality Comments GALLBLADDER SURGERY FACIAL COSMETIC SURGERY BREAST LUMPECTOMY 06/28/1999 Left benign surgical bx Medical History Medical History Date Comments Mass of breast Lump or mass in breast History of tubal ligation Histor y of tubal ligation Depression Depression Anxiety disorder Anxiety Posttraumatic stress disorder PT SD - Post-traumatic stress disorder Family History Medical History Relation Name Comments No Known Problems Brother Atrial fibrillation Father Coronary artery disease Father Breast cancer Father's Sister Hypertension Mother Heart disease Other 1 Family history of Cardiovascular disease; Diabetes Other 2 Family history of Diabetes mellitus; Ovarian cancer Neg Hx Thyroid cancer Neg Hx Relation Name Status Comments Brother Alive Father Alive Father's Sister Mother Alive Other 1 Other 2 Social History Tobacco Use Types Packs/Day Years Used Date Smoking Tobacco: Every Day Cigarettes Smokeless Tobacco: Never Tobacco Cessation:Ready to Q uit: Not Asked; Counseling Given: Not Answered Alcohol Use Standard Drinks/Week Comments No 0 [...] on file Legal Sex Female 1:17 AM CAREER CENTER ADVISOR Gender Identity Not on file Sexual Orientation Not on file 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9 cm (5' 1 ) 04/21/2023 3:00 PM CDT Body Mass Index 22.67 04/21/2023 3:00 PM CDT Plan of Treatment Health Maintenance Due Date Last Done Comments Pneumococcal vaccine <65 (1 of 2 - PCV) 09/14/1979 DTaP/Tdap/Td Vaccine (3 - Td or Tdap) 09/04/2019 09/03/2009, 06/28/2008 Regular Well Visit/Exam 18-64 03/23/2023 03/23/2022, 11/22/2020 Zoster Vaccine (1 of 2) 09/14/2023 Covid-19 Vaccine (3 - 2023-2 5 season) 2024 03/09/2022, 02/05/2022 Influenza Vaccine (#1) 2024 2, 05/28/2019, 04/27/2019, Additional history exists Breast Cancer Screening-Mammogram 04/20/2024 04/20/2023, 08/02/2021, 08/02/2021 Depression Screening 04/21/2024 04/21/2023, 11/09/2022, 11/02/2022, Additional history exists Cervical Cancer Screening 11/22/2025 11/22/2020 Colon Cancer Screening-DNA Stool 03/30/2026 03/30/20 Hepatitis C Screening Completed 09/18/2020 Procedures Procedure Name Priority Date/Time Associated Diagnosis Comments SCREENING MAMMOGRAM BILATERAL W [place] Schedule Routine, Read Routine (OP Routine) 04/20/2023 2:49 PM CDT Screening mammogram, encounter for STOOL DNA ? COLOGUARD Routine 03/30/2023 9:30 AM CDT Screen for colon cancer PAP WITH REFLEX TO HIGH RISK HPV Routine 11/22/2020 11:03 AM CDT HEPATITIS C ANTIBODY Routine 09/18/2020 4:32 PM CDT Need for hepatitis C screening test from Last 3 Months or Most Recently Relevant to Health Maintenance Results * (ABNORMAL) Screening Mammogram Bilateral W [...] be contacted. Electronically signed by: TATY COX Narrative 04/20/2023 2:53 PM CDT EXAMINATION: SCREENING MAMMOGRAM [...] Mammogram IMG MAMMO PROCEDURES Fi nal Result * Stool DNA - Cologuard (03/30/2023 9:30 AM CDT) Stool DNA - Cologuard Negative Negative [employer] (TutorialTabIA #:[id number]) Comment: NEGATIVE TEST RESULT. A negative Cologuard result indicates a low likelihood that a colorectal cancer (CRC) or advanced adenoma (adenomatous polyps with more advanced pre-malignant features) ??is present. The chance that a person with a negative Cologuard test has a colorectal cancer is less than 1 in 1500 (negative predictive value >99.9%) or has an ??advanced adenoma is less than ??5.3% (negative predictive value 94.7%). These data are based on a prospective cross-sectional study of 10,000 individuals at average risk for colorectal cancer who were screened with both Cologuard and colonoscopy. (Bree Valle al, N Engl J Med 2014;370(14):1286- 1297) The normal value (reference range) for this assay is negative. COLOGUARD RE-SCREENING RECOMMENDATION: Periodic colorectal cancer screening is an important part of preventive healthcare for asymptomatic individuals at average risk for colorectal cancer. ??Following a negative Cologuard result, the [place] [employer] and U.S. Multi-Society Task Force screening guidelines recommend a Cologuard re-screening interval of 3 years. References: [place] [employer] Guideline for Colorectal Cancer Screening: https://www.cancer.org/cancer/twxhi-jadpec-yojazf/vwvxjtrwa-daokkrelq-edviavf/ac s-rec ommendations.html.; Emmanuel DK, Brendan CR, Yarelis NgK, Colorectal Cancer Screening: Recommendations for Physicians and Patients from the U.S. Multi-Society Task Force on Colorectal Cancer Screening , Am J Gastroenterology 2017; 112:9377-9034. TEST DESCRIPTION: Composite algorithmic analysis of stool DNA-biomarkers with hemoglobin immunoassay. ?? Quantitative values of individual biomarkers are not reportable and are not associated with individual biomarker result reference ranges. Cologuard is intended for colorectal cancer screening of adults of either sex, 45 years or older, who are at average-risk for colorectal cancer (CRC). Cologuard has been approved for use by the U.S. FDA. The performance of Cologuard was established in a cross sectional study of average-risk adults aged 50-84. Cologuard performance in patients ages 45 to 49 years was estimated by sub-group analysis of near-age groups. Colonoscopies performed for a positive result may find as the most clinically significant lesion: colorectal cancer [4.0%], advanced adenoma (including sessile serrated polyps greater than or equal to 1cm diameter) [20%] or non- advanced adenoma [31%]; or no colorectal neoplasia [45%]. These estimates are derived from a prospective cross-sectional screening study of 10,000 individuals at average risk for colorectal cancer who were screened with both Cologuard and colonoscopy. (Bree Valle al, N Engl J Med 2014;370(14):2354-5962.) Cologuard may produce a false negative or false positive result (no colorectal cancer or precancerous polyp present at colonoscopy follow up). A negative Cologuard test result does not guarantee the absence of CRC or advanced adenoma (pre-cancer). The current Cologuard screening interval is every 3 years. ([place] [employer] and U.S. Multi-Society Task Force). Cologuard performance data in a 10,000 patient pivotal study using colonoscopy as the reference method can be accessed at the following location: www.Snaptrip.com/results. Additional description of the Cologuard test process, warnings and precautions can be found at www.[employer].com. Stool 03/30/2023 9:30 AM CDT 04/01/2023 1:51 AM CDT Eliseo Lambert MD LAB BODY FLUIDS AND STO OLS ORDERABLES Final Result [employer] (CLIA #:[id number]) [place] [address] [address] * Pap with reflex to High Risk HPV (11/22/2020 11:03 AM CDT) Pap test 11/22/2020 11:0 3 AM CDT 11/22/2020 11:03 AM CDT Narrative 11/28/2020 12:17 PM CDT [facility] Department of Pathology [address] [place] [address] Final Report with Addendum Patient Name: ??KRISTY ESTES Address: ??[address] [place] [address], ?? [place], [place] [address] Gender: ??F : ??1975 (Age: 45) Service: ??Laboratory Location: ??Lab Hospital #: ??[id number] Patient Type: ?? Ref Lab Taken: ??11/22/2020 Received: ??11/22/2020 Accessioned:: ??11/26/2020 Reported: ??11/28/2020 Physician(s): Irene Fermin F.NDonna. Diagnosis: Source of Specimen: ? Imaged Thinprep Pap Test plus HPV - Principal Programmer Cytologic Material Specimen Adequacy: ?- Satisfactory for evaluation; endocervical/transformation zone component present General Category: ?- Negative for intraepithelial lesion or malignancy ?? SALMA Dhillon(ASCP) Report Electronically Reviewed and Signed Out By ??SALMA Dhillon(ASCP) ??11/28/2020 12:17:17 ??Addenda: HPV Test Interpretation NEGATIVE for types 16, 18, 31, 33, 35, 39, 45, 51, 52, 56, 58, 59, 66 and 68. Test performed utilizing Gen-Probe Aptima assay. ?? SALMA Holland(ASCP) ??Report Electronically Reviewed and Signed Out By ??SALMA Holland(ASCP) ??11/26/2020 13:52:27 ? Specimen(s) Received: A: Imaged Thinprep Pap Test plus HPV - Principal Programmer Cytologic Material Clinical History: Last Menstrual Period: 09/14/2020 Menstrual History: Perimenopausal The Pap test is a screening test used to aid in the detection of cervical cancer and its precursors. ??It should not be the sole means by which malignant and premalignant lesions are diagnosed. ??Both false negative and false positive results may occur. ?? It also has poor sensitivity for the detection of endometrial lesions and should not be used to evaluate suspected endometrial abnormalities. ??For these reasons it is most important to obtain Pap tests at regular intervals. The performance characteristics of some immunohistochemical stains, fluorescence in-situ hybridization tests and immunophenotyping by flow cytometry cited in this report (if any) were determined by the Surgical Pathology Department at [facility] as part of an ongoing quality measurement specialist program and in compliance with federally mandated regulations drawn from the Clinical Laboratory Improvement Act of 1988 (CLIA '88). ??Some of these tests rely on the use of analyte specific reagents and are subject to specific labeling requirements by the US Food and Drug Administration. ??Such diagnostic tests may only be performed in a facility that is certified by the Department of Health and Human Services as a high complexity laboratory under CLIA '88. The FDA has determined that such clearance or approval is not necessary. ??This test is used for clinical purposes. ??It should not be regarded as investigational or for research. ??Nevertheless, federal rules concerning the medical use of analyte specific reagents require that the following disclaimer be attached to the report: This test was developed and its performance characteristics determined by the Surgical Pathology Department [facility]. ??It has not been cleared or approved by the U. S. Food and Drug Administration. Olivia Christine NP LAB CYTOLOGY ORDERABLES Final Re sult * Hepatitis C antibody (09/18/2020 4:32 PM CDT) Hep C Ab Nonreactive Nonreactive JANIE MILLA ([place]) Comment: Interpretive Data Nonreactive: Antibodies to HCV not detected. Does NOT exclude the possibility of recent exposure to HCV. Equivocal: Equivocal for HCV antibodies. Supplemental molecular testing will be automatically performed to determine infection status in accordance with current CDC screening recommendations. ?? Reactive: Positive for HCV antibodies. ??This may represent current or past HCV infection. Supplemental molecular testing will be automatically performed to determine ??current infection status in accordance with current CDC screening recommendations. Interpretive data was last revised on 2019. Testing performed by: [facility], [address] [place] [address]., [id number] Blood specimen (specimen) 09/18/2020 4:32 PM CDT 09/19/2020 2:37 PM CDT Eliseo Lambert MD LAB MICROBIOLOGY - GENE RAL ORDERABLES Final Result JANIE LOYOLA ([place]) [facility] Department [place] [address] from Last 3 Months or Most Recently Relevant to Health Maintenance Insurance [facility] Member Subscriber Plan / Payer (Ef fective 2020-Present) Name:Kristy Quarles Relation to Subscriber:Self Name:Kristy Quarles Payer ID:[id number] (NAIC) Type:MEDICAID RISK OTHER Address: [address] [employer] 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
--- OUTSIDE RECORDS SUMMARY | 2024-06-25 09:49 | XMS_ITS | Encounter Summary ---
Author Organization [facility] Healthcare Address [address] [place] [address] Care Team Providers Care Feeder Catcher Name Role Phone Rhys Alonso MD Primary Care Provider Erna Hooper MD Unavailable Kwesi Hill MD Unavailable [phone] Reason for Referral * Diagnostic Imaging (Routine) - Closed Specialty Diagnoses / Procedures Referred By Mirlande steinberg Referred To Contact Diagnoses Abnormal mammogram Procedures Diagnostic Mammogram Left W Rhys Daugherty MD [address] [place] [address] DR LOCKE A [facility] [address] [place] [address] Phone: tel: fax: [address] [address] Referral ID Status Reason Start Date Expiration Date Visits Re quested Visits Authorized [id number] Closed 04/23/2023 05/22/2024 1 1 Encounter Details Date Type Department Care Team (Late st Contact Info) Description 04/23/2023 Orders Only [facility] Medical Group Primary Care at [address] [place] [address] Rhys Alonso MD [address] [place] [address] [place] [address] Abnormal mammogram (Primary Dx) Social History Tobacco Use Types Packs/Day Years [...] on file Legal Sex Female 1:17 AM SPACE ENGINEER Gender Identity Not on file Sexual Orientation Not on file 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 ??The left breast asymmetry on screening mammogram represents benign dense breast tissue. 2. ??No mammographic evidence of malignancy in the left breast. Annual screening mammography is recommended, for which the patient will be due on 04/21/2024. ??The patient has been notified of these findings and impression. BI-RADS: 1 - Negative. Electronically signed by: Michael Uribe M.D. Narrative 06/09/2023 11:27 AM SPACE ENGINEER EXAMINATION: DIAGNOSTIC MAMMOGRAM LEFT W [place] ORDERING HEALTHCARE PROVIDER: RHYS ALONSO HISTORY: 47-year-old [...] in this encounter Visit Diagnoses Diagnosis Abnormal mammogram- Primary Abnormal mammogram, unspecified Abnormal mammogram Abnormal mammogram, unspecified documented in this encounter Care Teams Feeder Catcher Relationship Specialty Start Date End Date Rhys Alonso MD PCP - General Family Medicine 05/21/20 06/29/23 Erna Hooper MD [address] [place] [address] Referring Physician Nephrology 12/21/22 Kwesi Hill MD [address] [place] [address] [address] [place] [address] Consulting Physician Psychiatry 03/15/23 documented as of this encounter
--- OUTSIDE RECORDS SUMMARY | 2024-06-25 09:49 | XMS_ITS | Referral Summary ---
Author Organization [facility] Medical Office Building A Address [address] [place] [address] Care Team Providers Care Metal Shaping Machine Operator Name Role Phone Erna Hooper MD Unavailable Kwesi Hill MD Unavailable [phone] Fernando Bryant DO Primary Care Provider [phone] Allergies Active Allergy Reactions Criticality Noted Date [...] abnormal findings and she has also tried crmz-sok-zaxsgnv medications including as reflux medication and has x without any resolution. Gastroesophageal reflux disease 01/08/2022 Assessment & Plan (03/15/2023 12:35 PM CDT): - chronic, controlled - no longer on Pantoprazole DR 40 mg daily, told to stop using it by her enchilada maker - now using TUMS as needed only [...] stomach. Assessment & Plan (05/18/2022 12:37 AM BUSINESS SYSTEMS ADMINISTRATOR): - chronic, controlled - currently on Pantoprazole [...] referral to nephrology - referral placed to [facility] Chemistry Lab Results Component Value Date [...] 06/02/2021 Assessment & Plan (07/14/2021 12:09 PM BUSINESS SYSTEMS ADMINISTRATOR): - chronic, stable - has family hx [...] 09/19/2020 Assessment & Plan (07/14/2021 12:11 PM BUSINESS SYSTEMS ADMINISTRATOR): - chronic, improved but not at goal - Noted on 08/2020 - Vit D Level 17 --> 28 - improved control since last time - completed weekly high dose vitamin D - currently on 2000 international units Vitamin D3 daily--> increase to 5000 international units Vitamin D3 daily - new script sent Assessment & Plan (06/02/2021 10:15 AM BUSINESS SYSTEMS ADMINISTRATOR): - chronic, improved - Noted on 08/2020 [...] 05/21/2020 Assessment & Plan (05/18/2022 12:37 AM BUSINESS SYSTEMS ADMINISTRATOR): - chronic, controlled - following with psychiatry - currently on clonazepam and wellbutrin at this time - she has tried other medications without good outcomes - continue current management Assessment & Plan (05/21/2020 3:54 PM BUSINESS SYSTEMS ADMINISTRATOR): - following with psychiatry - currently on [...] therapy Assessment & Plan (06/02/2021 8:41 AM BUSINESS SYSTEMS ADMINISTRATOR): - chronic, well controlled - used to [...] forward Assessment & Plan (05/21/2020 4:15 PM BUSINESS SYSTEMS ADMINISTRATOR): - used to follow with dermatology - [...] 01/06/2021 Assessment & Plan (05/18/2022 12:35 AM BUSINESS SYSTEMS ADMINISTRATOR): - chronic, controlled - worse, increase noted [...] 01/06/2021 Assessment & Plan (07/14/2021 12:10 PM BUSINESS SYSTEMS ADMINISTRATOR): - chronic, not at goal - most recent LDL as shown below, worsening - has been on Atorvastatin 20 mg since 06/17 - recheck Lipid panel before next visit - most recent LDL as shown below Lab Results Component Value Date LDLCALC 173 (H) 01/06/2021 Assessment & Plan (06/02/2021 10:14 AM BUSINESS SYSTEMS ADMINISTRATOR): - chronic, not well controlled - most [...] The 10-year ASCVD risk score (Dianne GHOTRA Jr., et al., 2013) is: 2.8% Values [...] 150 - The 10-year ASCVD risk score (Dianen GHOTRA Jr. et al., 2013) is: 0.6% [...] time Assessment & Plan (05/21/2020 4:05 PM BUSINESS SYSTEMS ADMINISTRATOR): - noted on most recent lipid panel [...] 05/06/2022 Assessment & Plan (05/18/2022 12:38 AM BUSINESS SYSTEMS ADMINISTRATOR): - chronic history, controlled - follows with [...] 06/02/2021 Assessment & Plan (06/02/2021 8:47 AM BUSINESS SYSTEMS ADMINISTRATOR): - chronic history, worsening - follows with [...] medications Assessment & Plan (05/21/2020 3:57 PM BUSINESS SYSTEMS ADMINISTRATOR): - follows with psychiatry - currently on [...] 06/02/2021 Assessment & Plan (06/02/2021 8:46 AM BUSINESS SYSTEMS ADMINISTRATOR): - chronic history, worsening - follows with psychiatry, Dr. Hill - anxiety is not well controlled - depression is not well controlled - has coexisting anxiety, on Klonopin 0.5mg PRN only - she does not take Trazodone 50 mg nightly - she has Tried Lexparo, Citalopram, Sertraline, - recommend discussing with psychiatry for changes in medications Assessment & Plan (05/21/2020 3:56 PM BUSINESS SYSTEMS ADMINISTRATOR): - chronic history - follows with psychiatry [...] medication Assessment & Plan (05/21/2020 3:58 PM BUSINESS SYSTEMS ADMINISTRATOR): - has insomnia, she has been prescribed medication but she does not use it - she does not recall the name of the medications Inflammatory polyarthropathy (CMS/HCC) 0 Resolved Problems Problem Noted Date Diagnosed Date Resolved Date Chest pain 05/18/2022 03/15/2023 Assessment & Plan (05/18/2022 12:40 AM BUSINESS SYSTEMS ADMINISTRATOR): - new diagnosis - reports dull pain [...] Rate: 73 bpm RR Interval: 819 msec IN Interval: 166 msec QRS Duration: 78 msec QT Interval: 335 msec QTC Interval: 360 msec P-R-T Alma: 48 - 24 - 54 degrees SINUS [...] 02/11/2022 Assessment & Plan (07/14/2021 12:08 PM BUSINESS SYSTEMS ADMINISTRATOR): - chronic, since injury at work - [...] therapy Assessment & Plan (06/02/2021 10:16 AM BUSINESS SYSTEMS ADMINISTRATOR): - chronic, since injury at work several [...] work - 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 Assessment [...] 10/05/2018,08/03/2018 TD Preservative Free 09/03/2009 Tdap 06/28/2008 Social History Tobacco Use Types Packs/Day Years [...] on file Legal Sex Female 1:17 AM BUSINESS SYSTEMS ADMINISTRATOR Gender Identity Not on file Sexual Orientation Not on file 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 A negative Cologuard [...] cancer. ??Following a negative Cologuard result, the [place] Cancer Society and U.S. Multi-Society Task Force screening guidelines recommend a Cologuard re-screening interval of 3 years. References: [place] [employer] Guideline for Colorectal Cancer Screening: https://www.cancer.org/cancer/txyeb-eiofhm-xqwtza/vsxjjzvur-khosfmidu-pzqqepx/ac s-rec ommendations.html.; Emmanuel CRISOSTOMO, Brendan BURDICK, Yarelis PABLO, Colorectal Cancer Screening: Recommendations for Physicians and Patients from the U.S. Multi-Society Task Force on Colorectal Cancer Screening , Am J Gastroenterology 2017; 112:5458-0000. TEST DESCRIPTION: Composite algorithmic analysis of stool [...] (Bree Valle al, N Engl J Med 2014;370(14):8118-2985.) Cologuard may produce a false negative or false positive result (no colorectal cancer or precancerous polyp present at colonoscopy follow up). A negative Cologuard test result does not guarantee the absence of CRC or advanced adenoma (pre-cancer). The current Cologuard screening interval is every 3 years. ([place] [employer] Society and U.S. Multi-Society Task Force). Cologuard performance data in a 10,000 patient pivotal study using colonoscopy as the reference method can be accessed at the following location: www.[employer]/results. Additional description of the Cologuard test process, warnings and precautions can be found at www.cologuard.com. Stool 03/30/2023 9:30 AM CDT 04/01/2023 1:51 AM CDT Eliseo Lambert MD LAB BODY FLUIDS AND STO OLS ORDERABLES Final Result [facility] (CLIA #:[id number]) [place] [address] * Pap with reflex to High Risk HPV (11/22/2020 11:03 AM CDT) Pap test 11/22/2020 11:0 3 AM CDT 11/22/2020 11:03 AM CDT Narrative 11/28/2020 12:17 PM CDT [facility] Department of Pathology [address] [place], [place] [id number] Final Report with Addendum Patient Name: ??KRISTY ESTES Address: ??[facility] [address] [facility] [address], ?? [place], [place] [address] Gender: ??F : ??1975 (Age: 45) Service: ??Laboratory Location: ??Lab Hospital #: ??[id number] Patient Type: ?? Ref Lab Taken: ??11/22/2020 Received: ??11/22/2020 Accessioned:: ??11/26/2020 Reported: ??11/28/2020 Physician(s): Eden Fermin.N.P. Olivia Christine F.N.P. Diagnosis: Source of Specimen: ? Imaged Thinprep Pap Test plus HPV - Breakfast Cook Cytologic Material Specimen Adequacy: ?- Satisfactory for [...] Imaged Thinprep Pap Test plus HPV - Breakfast Cook Cytologic Material Clinical History: Last Menstrual Period: [...] determined by the Surgical Pathology Department at [facility] as part of an ongoing quality improvement consultant program and in compliance with federally mandated [...] characteristics determined by the Surgical Pathology Department [facility]. ??It has not been cleared or approved by the U. S. Food and Drug Administration. Olivia Christine NP LAB CYTOLOGY ORDERABLES Final Re sult * Hepatitis C antibody (09/18/2020 4:32 PM CDT) Hep C Ab Nonreactive Nonreactive JANIE MILLA (BOYDS) Comment: Interpretive Data Nonreactive: Antibodies to HCV [...] last revised on 2019. Testing performed by: [facility], [address] [place] [address]., [facility] Blood specimen (specimen) 09/18/2020 4:32 PM CDT 09/19/2020 2:37 PM CDT Eliseo Lambert MD LAB MICROBIOLOGY - GENE RAL ORDERABLES Final Result JANIE LOYOLA (AMANUEL) 1 [facility] Department [place] [address] from Last 3 Months or Most Recently Relevant to Health Maintenance Insurance [facility] HMO CHOICE PLUS [facility] CHOICE PLUS Care Teams Metal Shaping Machine Operator Relationship Specialty Start Date End Date Fernando Bryant DO [address] [place] [address] PCP - General Family Medicine 06/30/23 Erna Hooper MD [address] [place] [address] Referring Physician Nephrology 12/21/22 Kwesi Hill MD [address] [place] [address] [facility] [place] [address] Consulting Physician Psychiatry 03/15/23
--- OUTSIDE RECORDS SUMMARY | 2024-06-25 09:49 | XMS_ITS | Encounter Summary ---
Author Organization [facility] Healthcare Address [address] [place] [address] Care Team Providers Care Edm Operator Name Role Phone Eliseo Lambert MD Primary Care Provider Erna Hooper MD Unavailable Kwesi Hill MD Unavailable [phone] Encounter Details Date Type Department Care Team (Late st Contact Info) Description 04/22/2023 Telephone [facility] Medical Group Primary Care at [address] [place] [address] Eliseo Lambert MD [address] [place] [address] A [address] [place] [address] Social History Tobacco Use Types [...] on file Legal Sex Female 1:17 AM FRESH WORK 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 Pt scheduled and aware. * Telephone Encounter - Gill Mobley - 04/22/2023 3:15 PM CDT LM with radiology * Telephone Encounter - Miri Molina MA - 04/22/2023 3:02 PM CDT Patient informed and verbalized understanding. Patient agreed to the Diagnostic Mammogram and US of left breast. * Telephone Encounter - Miri Molina MA - 04/22/2023 3:00 PM CDT ----- Message from Eliseo Lambert MD sent at 04/21/2023 8:04 AM CDT ----- Your breast cancer screening mammogram showed normal [...] on filedocumented in this encounter Care Teams Edm Operator Relationship Specialty Start Date End Date Eliseo Lambert MD PCP - General Family Medicine 05/21/20 06/29/23 Erna Hooper MD [address] [address] Referring Physician Nephrology 12/21/22 Kwsei Hill MD [address] [place] [address] DR NEGRON [address] [place] [address] Consulting Physician Psychiatry 03/15/23 documented as of this encounter
--- OUTSIDE RECORDS SUMMARY | 2024-06-25 09:49 | XMS_ITS | Encounter Summary ---
Author Organization [facility] Healthcare Address [address] [place] [address] Care Team Providers Care Tank Wagon Driver Name Role Phone Eliseo Lambert MD Primary Care Provider Erna Hooper MD Unavailable Kwesi Hill MD Unavailable [phone] Fernando Bryant DO Primary Care Provider [phone] Reason for Visit * Reason Onset Date Comments Medication Request 06/23/2023 Call Back 06/23/2023 Encounter Details Date Type Department Care Team (Late st Contact Info) Description 06/23/2023 Telephone [facility] Medical Group Primary Care at [address] [place] [address] Eliseo Lambert MD [address] [place] [address] [address] [place] [address] Medication Request; Call Back Social History Tobacco Use Types Packs/Day Years [...] on file Legal Sex Female 1:17 AM INDUCTION COORDINATION ENGINEER Gender Identity Not on file Sexual Orientation Not on file 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 Not on file Not on file documented as of this encounter Ordered Prescriptions Prescription Sig Dispense Quantity Refills Last Filled Start Date End Date nirmatrelvir 300 mg-ritonavir 100 mg (PAXLOVID 300mg-100 mg) tablets,dose pack tablets in a dose packIndications:C OVID-19 Take 3 tablets by mouth 2 (two) times a day for 5 days Take 300 mg nirmatrelvir (2 x 150 mg tablets) with 100 mg ritonavir (1 x 100 mg tablet) with all three tablets taken together by mouth twice daily for 5 days 30 tablet 06/24/2023 4 documented in this encounter Miscellaneous Notes * Telephone Encounter - Jen French MA - 06/25/2023 9:35 AM INDUCTION COORDINATION ENGINEER Pt aware CTION COORDINATION ENGINEER * Telephone Encounter - Eliseo Lambert MD - 06/24/2023 4:17 PM INDUCTION COORDINATION ENGINEER Sent paxlovid, please have her stop taking her cholesterol medication for next 10 days. CTION COORDINATION ENGINEER * Telephone Encounter - Arlette Erickson - 06/24/2023 2:33 PM CST Call Back Caller???s Concern: Patient following up with this message. She is on day 3 of symptoms. Sending requesting high priority since the request is time sensitive. Does message need to be routed? Yes-Action Needed CTION COORDINATION ENGINEER * Telephone Encounter - Lazaro Diamond MA - 06/23/2023 1:58 PM CST Pt states her got a at home test from [facility] and she tested positive would like paxlovidsent in does not want to go to [facility] while sick CTION COORDINATION ENGINEER * Telephone Encounter - Gilberto Huang - 06/23/2023 1:10 PM CST Medication Question/Clarification Medication Name(s): Paxlovid What is the question or clarification needed? Patient tested positive for covid 06/22/23 and symptoms started less than 5 days ago. If needed, Pharmacy(s) medication(s) should be sent to: [facility]/pharmacy #[id number] - [place], [place] - Additional Comments: Patient symptoms include Fever body aches, sneezing runny nose, sinus , cough . Requesting call back when sent to pharmacy Does message need to be routed? Yes-Action Needed CTION COORDINATION ENGINEER documented in this encounter Plan of Treatment Not on file documented as of this encounter Visit Diagnoses Not on filedocumented in this encounter Care Teams Tank Wagon Driver Relationship Specialty Start Date End Date Eliseo Lambert MD PCP - General Family Medicine 05/21/20 06/29/23 Fernando Bryant DO [address] [place] [address] PCP - General Family Medicine 06/30/23 Erna Hooper MD [address] [place] [address] Referring Physician Nephrology 12/21/22 wKesi Hill MD [address] [place] [address] [address] [facility] [facility] [place] [address] Consulting Physician Psychiatry 03/15/23 documented as of this encounter
--- OUTSIDE RECORDS SUMMARY | 2024-06-25 09:49 | XMS_ITS | Encounter Summary ---
Author Organization [facility] Healthcare Address [address] [place] [address] Care Team Providers Care Guide Cruise Name Role Phone Eliseo Lambert MD Primary Care Provider Erna Hooper MD Unavailable Kwesi Hill MD Unavailable [phone] Reason for Visit * Reason Onset Date Comments Test Results 05/11/2023 Encounter Details Date Type Department Care Team ([facility] Contact Info) Description 05/11/2023 Telephone [facility] Medical Group Primary Care at [address] [place] [address] Eliseo Lambert MD [address] [place] [address] [address] [place] [address] Test Results Social History Tobacco [...] on file Legal Sex Female 1:17 AM PATIENT TRANSITION SPECIALIST Gender Identity Not on file Sexual Orientation Not on file 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 No Additional Questions/Comments: patient has asked for results on 04/27 with no resolution She is concerned as she saw the results and some a high and some low. She isn't feeling well Does message need to be routed? Yes-Action Needed ENT TRANSITION SPECIALIST documented in this encounter Plan of Treatment Not on file documented as of this encounter Visit Diagnoses Not on filedocumented in this encounter Care Teams Guide Cruise Relationship Specialty Start Date End Date Eliseo Lambert MD PCP - General Family Medicine 05/21/20 06/29/23 Erna Hooper MD [address] [place] [address] Referring Physician Nephrology 12/21/22 Kwesi Hill MD [address] [place] [address] DR NEGRON [address] [place] [address] Consulting Physician Psychiatry 03/15/23 documented as of this encounter
--- OUTSIDE RECORDS SUMMARY | 2024-06-25 09:49 | XMS_ITS | Encounter Summary ---
Author Organization [facility] Address [address] [place] [address] Phone Care Team Providers Care Apartment Maintenance Name Role Phone Eliseo Lambert MD Primary Care Provider Erna Hooper MD Unavailable Kwesi Hill MD Unavailable [phone] Encounter Details Date Type Department Care Team (Late st Contact Info) Description 05/14/2023 Telephone [facility] Nephrology [address] [facility] 5th [place] [address] [place] [address] Erna Hooper MD [address] [facility] [address] [place] [address] Social History Tobacco Use Types Packs/Day Years [...] on file Legal Sex Female 1:17 AM EQUIPMENT WORKER Gender Identity Not on file Sexual Orientation Not on file 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 Please advise and cb [phone] ThanksTho PMENT WORKER documented in this encounter Plan of Treatment Not on file documented as of this encounter Visit Diagnoses Not on filedocumented in this encounter Care Teams Apartment Maintenance Relationship Specialty Start Date End Date Eliseo Lambert MD PCP - General Family Medicine 05/21/20 06/29/23 Erna Hooper MD [address] [place] [address] Referring Physician Nephrology 12/21/22 Kwesi Hill MD [address] [place] [address] [address]ON [address] [place] [address] Consulting Physician Psychiatry 03/15/23 documented as of this encounter
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
--- OUTSIDE RECORDS SUMMARY | 2024-06-25 09:50 | XMS_ITS | Encounter Summary ---
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 * Telephone Encounter - Marin Brown MA - 12/18/2022 12:46 PM CDT Left message for patient to call back to discuss urine culture results. Patient saw results via [employer]. * Telephone Encounter - Marin Brown MA - 12/18/2022 12:46 PM CDT ----- Message from Anastasia Miles NP sent at 12/18/2022 9:26 AM CDT ----- Please call patient and let her know that her urine culture came back positive for E coli. She should continue taking the Cipro as prescribed. She should follow-up with her PCP if symptoms persist after the completion of antibiotics or sooner if symptoms worsen documented in this encounter Plan of Treatment Not on file documented as of this encounter Visit Diagnoses Not on filedocumented in this encounter Care Teams Superior Court Justice Relationship Specialty Start Date End Date Eliseo Lambert MD PCP - General Family Medicine 05/21/20 06/29/23 documented as of this encounter
--- OUTSIDE RECORDS SUMMARY | 2024-06-25 09:50 | XMS_ITS | Encounter Summary ---
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 Lambert is referring this patient to the Division of Nephrology with a provider that is taking new patients, no other preferences. Dx: CKD Stage 2 documented in this encounter Plan of Treatment Not on file documented as of this encounter Visit Diagnoses Not on filedocumented in this encounter Care Teams Edi Analyst Relationship Specialty Start Date End Date Eliseo Lambert MD PCP - General Family Medicine 05/21/20 06/29/23 documented as of this encounter
--- OUTSIDE RECORDS SUMMARY | 2024-06-25 09:50 | XMS_ITS | Encounter Summary ---
Author Organization [facility] Healthcare Address [address] [place] [address] Care Team Providers Care Manager Foreign Name Role Phone Eliseo Lambert MD Primary Care Provider Encounter Details Date Type Department Care Team (Late st Contact Info) Description 12/02/2022 11:05 AM CDT Lab [facility] Advanced Medicine [facility] Advanced Medicine ([facility] [address] [place] [phone] CKD (chronic kidney disease) stage 2, GFR 60-89 ml/min Social History Tobacco Use Types Packs/Day Years [...] on file 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 Gender Identity Not on file Sexual Orientation Not on file 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 Not on file Not on file documented as of this encounter Plan of Treatment Not on file documented as of this encounter Procedures Procedure Name Priority Date/Time Associated Diagnosis Comments EGFR Routine 12/02/2022 10:14 AM CDT CKD (chronic kidney disease) stage 2, GFR 60-89 ml/min CYSTATIN C Routine 12/02/2022 10:14 AM CDT CKD (chronic kidney disease) stage 2, GFR 60-89 ml/min RENAL FUNCTION PANEL Routine 12/02/2022 10:14 AM CDT CKD (chronic kidney disease) stage 2, GFR 60-89 ml/min documented in this encounter Results * (ABNORMAL) eGFR (12/02/2022 10:14 AM CDT) eGFR 68(L) 90 - 130 mL/min/1. 73 m2 JANIE GAMINO Comment: Interpretive Data Reference Interval Normal ?>/= 90 mL/min/1.73m2 Mildly decreased* ? 60 - 89 mL/min/1.73m2 Mildly to moderately decreased ?45 - 59 mL/min/1.73m2 Moderately to severely decreased ??30 - 44 mL/min/1.73m2 Severely decreased ?15 - 29 mL/min/1.73m2 Kidney Failure ?< 15 ??mL/min/1.73m2 *Relative to young adult level Estimated glomerular filtration rate is determined by the 2020 CKD-EPI equation recommended by the National Kidney Foundation (A Unifying Approach to GFR Estimation: Recommendations of the NKF-ASK Task Force on Reassessing the Inclusion of Race in Diagnosing Kidney Disease, JASN 2020). The CKD-EPI equation should not be used for patients with unstable renal function and has not been validated in children and those over 70. Current interpretive data was last reviewed 2021. Blood 12/02/2022 10:1 4 AM CDT 12/02/2022 10:35 AM CDT us Julia Ramos MD LAB BLOOD ORDERABLES Final Resul t YAWILMER STEVENSON [facility] Department [place] [address] * Cystatin C (12/02/2022 10:14 AM CDT) Cystatin C 0.86 0.60 - 1.20 mg/L [facility] Comment: Interpretive Data Cystatin C concentrations vary widely in the first month of life, particularly in pre-term infants. ??Concentrations gradually diminish to adult levels by 1 year of life. ??Concentrations tend to rise with diminishing renal function in individuals greater than 60 years of age. ??Current Interpretive Data was last revised on 2020. Testing performed by: [facility], [place]., [address] Blood 12/02/2022 10:1 4 AM CDT 12/02/2022 10:34 AM CDT us Julia Ramos MD LAB BLOOD ORDERABLES Final Resul t [facility] Department [place] [address] * Renal function panel (12/02/2022 10:14 AM CDT) Sodium 141 135 - 145 mmol/L [facility] Potassium, pl 4.4 3.3 - 4.9 mmol/L [facility] Chloride 105 97 - 110 mmol/L [facility] CO2 30 22 - 32 mmol/L [facility] Anion gap 6 2 - 15 mmol/L [facility] BUN 12 8 - 25 mg/dL [facility] Creatinine 1.01 0.60 - 1.10 mg/dL [facility] Glucose 99 70 - 199 mg/dL [facility] Comment: Interpretive Data Fasting glucose >/= 126 mg/dl is diagnostic for diabetes. ?? Fasting is defined as no caloric intake for at least 8 hours. Fasting glucose between 100 mg/dl to 125 mg/dl is diagnostic of prediabetes. In a patient with classic symptoms of hyperglycemia or hyperglycemic crisis, a random glucose >/= 200 mg/dl is diagnostic for diabetes. In the absence of unequivocal hyperglycemia, results should be confirmed by repeat testing. The classification and Diagnosis of Diabetes Diabetes Care 2021; 46: S19-S40. Current interpretive data was last revised 2022. Calcium 9.6 8.5 - 10.3 mg/dL [facility] Phosphorus, pl 3.5 2.3 - 4.5 mg/dL [facility] Albumin 4.7 3.5 - 5.0 g/dL [facility] Blood 12/02/2022 10:1 4 AM CDT 12/02/2022 10:30 AM CDT us Julia Ramos MD LAB BLOOD ORDERABLES Final Resul t [facility] Department [place] [address] documented in this encounter Visit Diagnoses Diagnosis CKD (chronic kidney disease) stage 2, GFR 60-89 ml/min Chronic kidney disease, Stage II (mild) documented in this encounter Care Teams Manager Foreign Relationship Specialty Start Date End Date Eliseo Lambert MD PCP - General Family Medicine 05/21/20 06/29/23 documented as of this encounter
--- OUTSIDE RECORDS SUMMARY | 2024-06-25 09:50 | XMS_ITS | Encounter Summary ---
Author Organization [facility] Address [address] [facility] [address] [place] [address] Care Team Providers Care Code Inspector Name Role Phone Eliseo Lambert MD Primary Care Provider Encounter Details Date Type Department Care Team (Late st Contact Info) Description 11/02/2022 Orders Only [facility] Primary Care at [address] [place] [address] Eliseo Lambert MD [address] [place] [address] [address] [place], [place] [id number] CKD (chronic kidney disease) stage 2, GFR 60-89 ml/min (Primary Dx); Family history of kidney disease Social History Tobacco Use Types Packs/Day Years Used Date Smoking Tobacco: Every Day Cigarettes Smokeless Tobacco: Never Alcohol Use Standard Drinks/Week Comments No 0 (1 standard drink = 0.6 oz pur e alcohol) PHQ-2 Answer Date Recorded PHQ-2 Total Score (If total score is 3 or more points, staff should administer the PHQ-9) 0 11/02/2022 Comments No Sex and Gender Information Value Date Recorded Sex Assigned at Not on file 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 Gender Identity Not on file Sexual Orientation Not on file 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
--- OUTSIDE RECORDS SUMMARY | 2024-06-25 09:50 | XMS_ITS | Encounter Summary ---
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 documented in this encounter Plan of Treatment Not on file documented as of this encounter Procedures Procedure Name Priority Date/Time Associated Diagnosis Comments CELIAC REFLEX PANEL Routine 11/03/2022 1 :16 PM CDT Diarrhea, unspecified type TISSUE TRANSGLUTAMINASE, IGA Routine 11/03/2022 1:16 PM CDT documented in this encounter Results * Tissue transglutaminase IgA (TGG-IgA Ab) (11/03/2022 1:16 PM CDT) TTG ab, IgA <1.2 <4.0 (Negative) units/mL JANIE LOYOLA (AMANUEL) Comment: Test Performed by: [place] [address] Metal Drilling Machine Operator: Sameer Iniguez M.D. Ph.D.; CLIA# [id number] Blood 11/03/2022 1:16 PM CDT 11/03/2022 3:41 PM CDT Eliseo Lambert MD LAB BLOOD ORDERABLES Fi nal Result Performing Organization Address [facility] de Phone Number JANIE LOYOLA (AMANUEL) [address] [facility] [place] [address] * Celiac reflex panel (11/03/2022 1:16 PM CDT) IgA 200 61 - 356 mg/dL JANIE LOYOLA (AMANUEL) Celiac disease interpretation See Comment JANIE LOYOLA (AMANUEL) Comment: See Comment: Negative serology. Celiac disease unlikely. However, approximately 10% of patients with celiac disease are seronegative. Also, patients who are already adhering to a gluten-free diet may be seronegative. If celiac disease is highly clinically suspected, consider HLA-DQ typing. Test Performed by: [place] [id number] Metal Drilling Machine Operator: Sameer Iniguez M.D. Ph.D.; CLIA# [id number] Blood 11/03/2022 1:16 PM CDT 11/03/2022 3:41 PM CDT Eliseo Lambert MD LAB BLOOD ORDERABLES Fi nal Result Performing Organization Address [facility] de Phone Number JANIE LOYOLA (AMANUEL) [address] [place] [address] documented in this encounter Visit Diagnoses Diagnosis Diarrhea, unspecified type documented in this encounter Care Teams Associate Research Scientist Relationship Specialty Start Date End Date Eliseo Lambert MD PCP - General Family Medicine 05/21/20 06/29/23 documented as of this encounter
--- OUTSIDE RECORDS SUMMARY | 2024-06-25 09:50 | XMS_ITS | Encounter Summary ---
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 Gender Identity Not on file Sexual Orientation Not on file 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 Not on file Not on file documented as of this encounter Medications at Time of Discharge albuterol HFA (ProAir HFA) 90 mcg/actuation inhalerIndications:Bronc hitis Inhale 2 puffs every 4 (four) hours as needed for wheezing or shortness of breath 8.5 g 04/17/20 21 blood glucose diagnostic stripIndications:type 2 diabetes mellitus [...] OneTouch Verio Flex meter misc 09/20/19 21 ciprofloxacin (CIPRO) 500 mg tabletIndications:Acute cystitis with hematuria Take 1 tablet (500 mg total) by mouth 2 (two) times a day for 7 days 14 tablet 12/16/19 23 023 atorvastatin (LIPITOR) 20 mg tabletIndications:Pure hypercholesterolemia TAKE ONE TABLET BY MOUTH EVERY DAY 90 tablet 1 06/09/20 22 023 cholestyramine (QUESTRAN) 4 gram powderIndications:Post-c holecystectomy syndrome Take 1 packet (4 g total) by mouth 3 (three) times a day with meals 90 packet 11/03/19 23 023 cyclobenzaprine (FLEXERIL) 10 mg tabletIndications:Muscle Spasm Take 1 tablet (10 mg total) by mouth 2 (two) times a day as needed for muscle spasms 30 tablet 11/16/19 21 023 lidocaine (LIDODERM) 5 % Place 1 patch on the skin daily for 10 days Remove & discard patch within 12 hours or as directed by . 10 patch 05/12/[address] (PROTONIX) 40 mg EC tabletIndications:Abdomi nal pain TAKE ONE TABLET BY MOUTH EVERY DAY 90 tablet 1 09/02/19 23 023 spironolactone (ALDACTONE) 50 mg tabletIndications:Cystic acne vulgaris TAKE ONE TABLET BY MOUTH EVERY DAY 90 tablet 2 09/22/19 23 023 documented as of this encounter Discharge Disposition Disposition Code Departure Means Destination Discharge to home or self care documented in this encounter Miscellaneous Notes * Result Encounter Note - Marin Brown MA - 12/15/2022 11:59 PM CDT Left message for patient to call back to discuss urine culture results. Patient saw results via [email or web address]. * Result Encounter Note - Marin Brown MA - 12/15/2022 11:59 PM CDT Patient was advised of urine culture results and verbalized understanding. documented in this encounter Plan of Treatment Not on file documented as of this encounter Procedures Procedure Name Priority Date/Time Associated Diagnosis Comments URINE CULTURE Routine 12/15/2022 5:48 PM CDT Urinary tract infection symptoms documented in this encounter Results * (ABNORMAL) Urine culture Urine, clean voided (12/15/2022 5:48 PM CDT) Report Final Report: Greater than or equal to 100,000 colonies/mL of Escherichia coli (.) JANIE PULIDO Comment:Testing performed by : [facility], [address] [facility] [place] [address] Organism ESCHERICHIA COLI JANIE Urine, clean voided 12/15/2022 5:48 PM CDT 12/16/2022 3:32 PM CDT Narrative JANIE - 12/18/2022 9:23 AM CDT Testing performed by [facility] Microbiology Laboratory ([phone]) Organism Antibiotic Method Susceptibility Escherichia coli Ampicillin INTERPRETATION Susceptible Escherichia coli Cefazolin INTERPRETATION Susceptible Escherichia coli Nitrofurantoin INTERPRETATION Susceptible Escherichia coli Gentamicin INTERPRETATION Susceptible Escherichia coli Trimethoprim with Sulfamethoxazole IN TERPRETATION Susceptible Escherichia coli Meropenem INTERPRETATION Susceptible Escherichia coli Cefepime INTERPRETATION Susceptible Escherichia coli Ciprofloxacin INTERPRETATION Susceptible Escherichia coli Ceftazidime INTERPRETATION Susceptible Escherichia coli Ceftriaxone INTERPRETATION Susceptible Escherichia coli Piperacillin/Tazobactam INTERPRETATIO N Susceptible Escherichia coli Cephalexin INTERPRETATION Susceptible Escherichia coli Cefuroxime-axetil INTERPRETATION Susceptible Escherichia coli Cefdinir INTERPRETATION Susceptible us Anastasia Miles NP LAB MICROBIOLOGY - GENERAL ORDER LUNA Final Result JANIE PULIDO [address] [address] Department of Laboratories [place], [place] [id number] documented in this encounter Visit Diagnoses Diagnosis Urinary tract infection symptoms documented in this encounter Care Teams Biofuels Product Development Manager Relationship Specialty Start Date End Date Eliseo Lambert MD PCP - General Family Medicine 05/21/20 06/29/23 documented as of this encounter
--- OUTSIDE RECORDS SUMMARY | 2024-06-25 09:50 | XMS_ITS | Encounter Summary ---
Author Organization [facility] Address [address] [place] [address] Care Team Providers Care Operator Command Support Systems Name Role Phone Eliseo Lambert MD Primary Care Provider Reason for Visit * Reason Comments OTHER Encounter Details Date Type Department Care Team ([facility] st Contact Info) Description 11/09/2022 8:30 AM CDT Office Visit [facility] Primary Care at [address] [place] [address] Eliseo Lambert MD [address] [place] [address] [address] [place], [place] [id number] Alternating constipation and diarrhea (Primary Dx); Screen for colon cancer; CKD (chronic kidney disease) stage 2, GFR 60-89 ml/min; Encounter for screening mammogram for malignant neoplasm of breast Social History Tobacco Use Types Packs/Day Years [...] on file 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 Gender Identity Not on file Sexual Orientation Not on file 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 Not on file Not on file documented as of this encounter Last Filed Vital Signs Vital Sign Reading Time Taken Comments Blood Pressure 118/80 11/09/2022 8:16 AM CDT Pulse 72 11/09/2022 8:16 AM CDT Temperature 36 ??C (96.8 ??F) 11/09/2022 8:16 AM CDT Respiratory Rate 18 11/09/2022 8:16 AM CDT Oxygen Saturation 98% 11/09/2022 8:16 AM CDT Inhaled Oxygen Concentration - - Weight 54.9 kg (121 lb) 11/09/2022 8:16 AM CDT Height 154.9 cm (5' 1 ) 11/09/2022 8:16 AM CDT Body Mass Index 22.86 11/09/2022 8:16 AM CDT documented in this encounter Progress Notes * Eliseo Lambert MD - 11/09/2022 8:30 AM CDT Images from the original note were not included. Assessment/Plan Diagnoses and all orders for this visit: Alternating constipation and diarrhea (Primary) Assessment & Plan: - chronic condition - since she had [...] use Imodium and other options for it Orders: - Ambulatory referral to Gastroenterology; Future Screen for colon cancer Comments: - want her seen by GI first for alternating constipation and diarrhea, will likely need colonoscopyas well, if so can do diagnostic colonoscopy CKD (chronic kidney disease) stage 2, GFR 60-89 ml/min Assessment & Plan: - chronic condition - has family hx of kidney disease in her Paternal Aunt, Paternal grandmother and Paternal Uncle - currently she has CKD stage 2 - recently noted her GFR fluctuating, requesting referral to nephrology - referral placed to [facility] Chemistry Lab Results Component Value Date SODIUM 141 11/01/2022 POTASSIUM 4.2 11/01/2022 CHLORIDE 102 11/01/2022 CO2 30 11/01/2022 ANIONGAP 9 11/01/2022 BUNSER 8 11/01/2022 CREATININE 1.02 11/01/2022 GLUCOSE 89 11/01/2022 CALCIUM 10.3 11/01/2022 BILITOT 0.6 11/01/2022 PROTEIN 7.9 04/01/2017 ALBUMIN 4.9 11/01/2022 GFRNAA 67 11/01/2022 ALKPHOS 92 11/01/2022 AST 25 11/01/2022 ALT 15 11/01/2022 PHOS 3.4 09/26/2021 Encounter for screening mammogram for malignant neoplasm of breast - SCREENING MAMMOGRAM BILATERAL W MARIVEL; Future Return in about 4 months (around 03/12/2023). Subjective/Objective Chief Complaint Patient presents with OTHER HPI Kristy Kapoor is a 47 y.o. female who is here for well-being follow-up after recently being seen with chief complaint of diarrhea. Patient was started on cholestyramine and completed lab work in theemergency department prior to seeing me and I did orders some stool studies. I ordered celiac paneltesting but the stool studies are yet to be completed. She requested referral to Nephrology on last visit which was placed but states she has not been contacted. She states the diarrhea stopped on its own the next day after she saw me even before she used the cholestyramine. She does have multiple family members with IBS. Patient vitals appears to be stable on this visit. She is had about 2 lb of weight loss since last visit. Place referral to [facility] nephrology for CKD stage 2 She is past due for colon cancer screenign as well and past due for breast cancer screening mammogram. Please see the assessment and plan section for relevant conditions discussed, status of conditions,current and future management recommendations. Patient Care Team: Eliseo Lambert MD as PCP - General (Family Medicine) Labs: Lab Results Component Value Date CHOL 199 05/06/2022 TRIG 89 05/06/2022 HDL 71 05/06/2022 Lab Results Component Value Date LDLCALC 110 05/06/2022 Lab Results Component Value Date TSH 3.21 05/06/2022 Lab Results Component Value Date HGBA1C 5.3 03/27/2021 HGBA1C 5.3 05/30/2020 Review of Systems Constitutional: Positive for fatigue and unexpected weight change (small weight loss). Negative forchills and fever. Gastrointestinal: Positive for constipation. Negative for abdominal pain, anal bleeding, diarrhea, nausea and vomiting. Vitals: 11/09/22 0816 BP: 118/80 BP Location: Left arm Patient Position: Sitting Pulse: 72 Resp: 18 Temp: 36 ??C (96.8 ??F) SpO2: 98% Weight: 54.9 kg (121 lb) Height: 154.9 cm (5' 1 ) Wt Readings from Last 3 Encounters: 11/09/22 54.9 kg (121 lb) 11/02/22 55.8 kg (123 lb) 11/01/22 56.2 kg (124 lb) Body mass index is 22.86 kg/m??. Physical Exam Vitals reviewed. Constitutional: General: She is not in acute distress. Appearance: She is not ill-appearing. Cardiovascular: Rate and Rhythm: Normal rate. Pulmonary: Effort: Pulmonary effort is normal. Neurological: General: No focal deficit present. Mental Status: She is alert and oriented to person, place, and time. Mental status is at baseline. Psychiatric: Mood and Affect: Mood normal. Behavior: Behavior normal. Thought Content: Thought content normal. Eliseo Lambert MD November 09, 2022 8:54 AM Please note: Voice recognition software [employer] was used dictate and transcribe this document. Automatic Centrifugal Station Operator variances may occur. Despite proofreading, typographical errors may occur. j documented in this encounter Miscellaneous Notes * Assessment & Plan Note - Eliseo Lambert MD - 11/09/2022 8:51 AM CDT Associated Problem(s): Alternating constipation and diarrhea - chronic condition - since she had [...] use Imodium and other options for it * Assessment & Plan Note - Eliseo Lambert MD - 11/09/2022 8:50 AM CDT Associated Problem(s): CKD (chronic kidney disease) stage 2, GFR 60-89 ml/min - chronic condition - has family hx of kidney disease in her Paternal Aunt, Paternal grandmother and Paternal Uncle - currently she has CKD stage 2 - recently noted her GFR fluctuating, requesting referral to nephrology - referral placed to [facility] Chemistry Lab Results Component Value Date SODIUM 141 11/01/2022 POTASSIUM 4.2 11/01/2022 CHLORIDE 102 11/01/2022 CO2 30 11/01/2022 ANIONGAP 9 11/01/2022 BUNSER 8 11/01/2022 CREATININE 1.02 11/01/2022 GLUCOSE 89 11/01/2022 CALCIUM 10.3 11/01/2022 BILITOT 0.6 11/01/2022 PROTEIN 7.9 04/01/2017 ALBUMIN 4.9 11/01/2022 GFRNAA 67 11/01/2022 ALKPHOS 92 11/01/2022 AST 25 11/01/2022 ALT 15 11/01/2022 PHOS 3.4 09/26/2021 documented in this encounter Plan of Treatment Not on file documented as of this encounter Visit Diagnoses Diagnosis Alternating constipation and diarrhea- Primary Screen for colon cancer Special screening for malignant neoplasms, colon CKD (chronic kidney disease) stage 2, GFR 60-89 ml/min Chronic kidney disease, Stage II (mild) Encounter for screening mammogram for malignant neoplasm of breast documented in this encounter Care Teams Operator Command Support Systems Relationship Specialty Start Date End Date Eliseo Lambert MD PCP - General Family Medicine 05/21/20 06/29/23 documented as of this encounter
--- OUTSIDE RECORDS SUMMARY | 2024-06-25 09:50 | XMS_ITS | Encounter Summary ---
Author Organization [facility] Address [address] [place] [address] Phone Care Team Providers Care Back Sizer Name Role Phone Eliseo Lambert MD Primary Care Provider Erna Hooper MD Unavailable Reason for Referral * Diagnostic Imaging (Routine) - Closed Specialty Diagnoses / Procedures Referred By Contac t Referred To Contact Diagnoses Elevated serum creatinine Chronic RUQ pain CKD (chronic kidney disease) stage 2, GFR 60-89 ml/min Abnormal finding Procedures US Kidney Complete US Kidney Complete Erna Hooper MD [address] [place] [address] Phone: tel: fax: [address] [address] Referral ID Status Reason Start Date Expiration Date Visits Re quested Visits Authorized [id number] Closed 01/28/2023 02/27/2024 1 1 Encounter Details Date Type Department Care Team (Late st Contact Info) Description 01/28/2023 Orders Only [facility] Nephrology [address] [place] [address] [place] [id number] Erna Hooper MD [address] [place] [address] Elevated serum creatinine (Primary Dx); Chronic RUQ pain; CKD (chronic kidney disease) stage 2, GFR 60-89 ml/min; Abnormal finding Social History Tobacco Use Types Packs/Day Years [...] on file 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 New ins received, await mychart from pt relaying where she wants scan done documented in this encounter Miscellaneous Notes * Addendum Note - Lynette Jack RMA - 01/28/2023 12:44 PM CDTAddended by: LYNETTE JACK on: 01/28/2023 01:22 PM Modules accepted: Orders documented in this encounter Plan of Treatment Not on file documented as of this encounter Results * US Kidney Complete [...] AM T: ??04/22/2023 6:40 AM Report ID: [id number] Reading Location: ??[id number] Procedure Note Patel Clark MD - 04/22/2023 [...] 04/22/2023 6:40 AM - Electronically signed by Patle Clark M.D. AG: ANGELICA Report ID: [id number] Reading Location: [id number] us Erna Hooper MD [facility] US PROCEDURES Final Result documented in this encounter Visit Diagnoses Diagnosis Elevated serum creatinine- Primary Other nonspecific findings on examination of blood Chronic RUQ pain Abdominal pain, right upper quadrant CKD (chronic kidney disease) stage 2, GFR 60-89 ml/min Chronic kidney disease, Stage II (mild) Abnormal finding Other nonspecific abnormal finding Elevated serum creatinine Other nonspecific findings on examination of blood Chronic RUQ pain Abdominal pain, right upper quadrant CKD (chronic kidney disease) stage 2, GFR 60-89 ml/min Chronic kidney disease, Stage II (mild) Abnormal finding Other nonspecific abnormal finding documented in this encounter Care Teams Back Sizer Relationship Specialty Start Date End Date Eliseo Lambert MD PCP - General Family Medicine 05/21/20 06/29/23 Erna Hooper MD [address] [place] [id number] Referring Physician Nephrology 12/21/22 documented as of this encounter
--- OUTSIDE RECORDS SUMMARY | 2024-06-25 09:50 | XMS_ITS | Encounter Summary ---
Author Organization [facility] Address [address] [place] [address] Phone Care Team Providers Care Accounting Administrator Name Role Phone Eliseo Lambert MD Primary Care Provider Reason for Visit * Consultation (Routine) - Closed Specialty Diagnoses / Procedures Referred By Contac t Referred To Contact Nephrology Diagnoses CKD (chronic kidney disease) stage 2, GFR 60-89 ml/min Eliseo Lambert MD Phone: tel: fax: [facility] (All Locations) Referral ID Status Reason Start Date Expiration Date V isits Requested Visits Authorized [id number] Closed Specialty Services Required 11/09/2022 12/09/2023 12 12 Encounter Details Date Type Department Care Team (Late st Contact Info) Description 12/02/2022 9:10 AM CDT Office Visit [facility] Nephrology [address] [place] [address] 5th [place] [address] [place] [address] Elevated serum creatinine Social History Tobacco Use Types Packs/Day Years [...] on file 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 Gender Identity Not on file Sexual Orientation Not on file 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 Not on file Not on file documented as of this encounter Last Filed Vital Signs Vital Sign Reading Time Taken Comments Blood Pressure 103/72 12/02/2022 9:07 AM CDT Pulse 78 12/02/2022 9:07 AM CDT Temperature - - Respiratory Rate - - Oxygen Saturation - - Inhaled Oxygen Concentration - - Weight 53.8 kg (118 lb 9.6 oz) 12/02/2022 9:07 A M CDT Height 154.9 cm (5' 1 ) 12/02/2022 9:07 AM CDT Body Mass Index 22.41 12/02/2022 9:07 AM CDT documented in this encounter Progress Notes * Julia Ramos MD - 12/02/2022 9:10 AM CDT NEPHROLOGY INITIAL OFFICE CONSULTATION NOTE PATIENT NAME: KRISTY ESTES DATE OF : 1975 DATE OF VISIT: 12/02/2022 REASON FOR CONSULTATION: Evaluation and management of elevated serum creatinine PHYSICIAN REQUESTING CONSULTATION: Eliseo Lambert MD HISTORY OF PRESENT ILLNESS: Patient is a 47 y.o. female who presents today here for evaluation of elevated serum creatinine. Review of patient's medical records indicates that the patient's serum creatinine has ranged between 0.9-1.0 in the last year. In 05/2020, serum creatinine was 1.2 (reports feeling lightheaded around that time) but improved 0.8 shortly after. Patient also has had multiple urinalysis in the last year and all were unremarkable without blood, protein or other abnormalities. Given the abnormal eGFR and strong family history of kidney disease (paternal aunt and grandmother had kidney disease, with aunt requiring dialysis), patient requested a nephrology consultation to further evaluate the abnormal eGFR. Today, patient reports feeling relatively well. She has been having diarrhea since September which is slowly improving and she states she has lost about 12lb of weight over the last several months. She denies chest pain, SOB, dizziness, nausea, vomiting, dysuria, hematuria, urinary frequency, or changein urine output. She has been taking spironolactone for almost 10 years, she states it was initially started for acne. Her dose was decreased from 100 mg daily to 50 mg daily in 2020 due to feeling lightheaded. Her BP is slightly low in office today which she states is normal for her. She does not want to come off spironolactone at this time as she says her acne returned when she stopped it in the past. She recalls taking NSAIDs in 2019 for back pain but not currently. She has GERD and has beenon PPI for one year. PAST MEDICAL HISTORY: Hypercholesterolemia GERD Vitamin D deficiency Cystic acne Anxiety disorder PTSD DJD PAST SURGICAL HISTORY: Cholecystectomy Tubal ligation MEDICATIONS: Current Outpatient Medications on File Prior to Visit Medication Sig atorvastatin (LIPITOR) 20 mg tablet TAKE ONE TABLET BY MOUTH EVERY DAY blood glucose diagnostic strip Please use twice daily to check BG measurements with compatible glucometer. buPROPion XL (WELLBUTRIN XL) 300 mg 24 hr tablet Take 1 tablet (300 mg total) by mouth every morning cholecalciferol (VITAMIN D-3) 5,000 unit capsule TAKE ONE CAPSULE BY MOUTH EVERY DAY clonazePAM (KlonoPIN) 0.5 mg tablet as needed cyclobenzaprine (FLEXERIL) 10 mg tablet Take 1 tablet (10 mg total) by mouth 2 (two) times a day asneeded for muscle spasms (Patient taking differently: Take 1 tablet (10 mg total) by mouth as needed for muscle spasms) ondansetron ODT (ZOFRAN-ODT) 4 mg disintegrating tablet Take 1 tablet (4 mg total) by mouth every 8(eight) hours as needed for nausea or vomiting (Patient taking differently: Take 1 tablet (4 mg total) by mouth as needed for nausea or vomiting) Oneuch Verio Flex meter [facility] [place] (PROTONIX) 40 mg EC tablet TAKE ONE TABLET BY MOUTH EVERY DAY spironolactone (ALDACTONE) 50 mg tablet TAKE ONE TABLET BY MOUTH EVERY DAY albuterol HFA (ProAir HFA) 90 mcg/actuation inhaler Inhale 2 puffs every 4 (four) hours as needed for wheezing or shortness of breath cholestyramine (QUESTRAN) 4 gram powder Take 1 packet (4 g total) by mouth 3 (three) times a day with meals (Patient not taking: Reported on 12/02/2022) lidocaine (LIDODERM) 5 % Place 1 patch on the skin daily for 10 days Remove & discard patch within 12 hours or as directed by MD. traZODone (DESYREL) 50 mg tablet (Patient not taking: Reported on 12/02/2022) No current facility-administered medications on file prior to visit. ALLERGIES: Allergies Allergen Reactions Guaifenesin Nr [Guaifenesin] Anaphylaxis Pravastatin Nausea only and Vomiting Reaction: Nausea, Vomiting, Sulfamethoxazole-Trimethoprim Hives Nitrofurantoin Hives and Unknown Oxybutynin Hives and Unknown Dextromethorphan Itching Itching Ibuprofen Nausea only Pseudoephedrine Palpitations Sulfa (Sulfonamide Antibiotics) Stomach upset Stomach/GI Upset Tramadol Other (See comments) Heart race Vicodin [Hydrocodone-Acetaminophen] Vomiting Yellow Dye Itching Itching SOCIAL HISTORY: The patient reports that she has been smoking a few cigarettes a day. She has neverused smokeless tobacco. She denies alcohol or recreational drug use. FAMILY HISTORY: Paternal aunt and grandmother had kidney disease. Her aunt was on dialysis (she wasdiabetic). Her grandmother had a nephrectomy. REVIEW OF SYSTEMS: As per HPI. All other systems are negative. PHYSICAL EXAMINATION: GENERAL: A very pleasant female in no apparent distress BP 103/72 (BP Location: Left arm, Patient Position: Sitting) Pulse 78 Ht 154.9 cm (5' 1 ) Wt 53.8 kg (118 lb 9.6 oz) BMI 22.41 kg/m?? HEENT: Sclerae anicteric. Mucus membranes pink and moist. Oropharynx clear HEART: Regular rhythm and rate, S1 S2 normal, no murmurs, rub or gallop LUNGS: Clear to auscultation bilaterally ABDOMEN: Soft, non-tender, non-distended, bowel sounds normal. No hepatosplenomegaly or masses. No abdominal bruits EXTREMITIES: No edema SKIN: No rash NEURO: Alert and oriented x3. No focal motor deficits PSYCH: Pleasant, cooperative, in no apparent distress MUSCULOSKELETAL: No joint swelling or tenderness LABORATORY DATA: Sodium Date Value Ref Range Status 11/01/2022 141 135 - 145 mmol/L Final 05/06/2022 141 135 - 145 mmol/L Final 03/26/2022 137 135 - 145 mmol/L Final Potassium, pl Date Value Ref Range Status 11/01/2022 4.2 3.3 - 4.9 mmol/L Final 05/06/2022 4.2 3.3 - 4.9 mmol/L Final 03/26/2022 4.2 3.3 - 4.9 mmol/L Final CO2 Date Value Ref Range Status 11/01/2022 30 22 - 32 mmol/L Final 05/06/2022 31 22 - 32 mmol/L Final 03/26/2022 26 22 - 32 mmol/L Final BUN Date Value Ref Range Status 11/01/2022 8 8 - 25 mg/dL Final 05/06/2022 13 8 - 25 mg/dL Final 03/26/2022 12 8 - 25 mg/dL Final 03/04/2020 16 8 - 25 mg/dL Final 03/03/2020 14 8 - 25 mg/dL Final Creatinine Date Value Ref Range Status 11/01/2022 1.02 0.60 - 1.10 mg/dL Final 05/06/2022 0.91 0.60 - 1.10 mg/dL Final 03/26/2022 0.97 0.60 - 1.10 mg/dL Final Albumin Date Value Ref Range Status 11/01/2022 4.9 3.5 - 5.0 g/dL Final 05/06/2022 4.9 3.5 - 5.0 g/dL Final 09/26/2021 4.3 3.5 - 5.0 g/dL Final Calcium Date Value Ref Range Status 11/01/2022 10.3 8.5 - 10.3 mg/dL Final 05/06/2022 10.2 8.5 - 10.3 mg/dL Final 03/26/2022 9.5 8.5 - 10.3 mg/dL Final Phosphorus, pl Date Value Ref Range Status 09/26/2021 3.4 2.3 - 4.5 mg/dL Final Vitamin D 25-OH Date Value Ref Range Status 05/06/2022 80 30 - 80 ng/mL Final Hgb Date Value Ref Range Status 11/01/2022 12.9 11.9 - 15.5 g/dL Final 05/06/2022 13.0 11.9 - 15.5 g/dL Final 03/26/2022 12.9 11.9 - 15.5 g/dL Final UA with MICRO pH, ur Date Value Ref Range Status 09/30/2017 7.5 4.5 - 8.0 Final Comment: Normal ranges: 4.5-8.0 pH, urine Date Value Ref Range Status 11/01/2022 7.5 Final 05/12/2022 6.5 Final Protein, ur ql Date Value Ref Range Status 11/01/2022 Negative Negative Final 05/12/2022 Negative Negative Final 09/30/2017 Negative Negative mg/dL Final Glucose, ur, POC Date Value Ref Range Status 11/05/2021 Negative Negative mg/dL Final Glucose, ur ql Date Value Ref Range Status 11/01/2022 Negative Negative Final 05/12/2022 Negative Negative Final Blood, ur Date Value Ref Range Status 11/01/2022 Negative Negative Final 05/12/2022 Negative Negative Final 09/30/2017 Negative Negative Final Nitrites, ur Date Value Ref Range Status 09/30/2017 Negative Negative Final Nitrite, ur Date Value Ref Range Status 11/01/2022 Negative Negative Final 05/12/2022 Negative Negative Final Leukocyte esterase, ur Date Value Ref Range Status 11/01/2022 Negative Negative Final 05/12/2022 Negative Negative Final 09/30/2017 Trace (A) Negative Final RBC, ur Date Value Ref Range Status 09/30/2017 0-2 0 - 2 Final 07/14/2013 10 - 25 (A) 0 - 5 /hpf 11/27/2012 0 - 2 0 - 5 /hpf WBC, ur Date Value Ref Range Status 09/30/2017 2-5 (A) 0 - 2 Final 07/14/2013 5 - 10 (A) 0 - 2 /hpf 11/27/2012 2 - 5 0 - 2 /hpf CT Abdomen/Pelvis 06/07/2020: No abnormalities in kidneys. No hydronephrosis. ASSESSMENT AND PLAN: Elevated serum creatinine: Review of records indicates that patient's baseline creatinine is around0.9-1.0. Etiology of the mildly increased serum creatinine is unclear. She has been on spironolactone for many years and her blood pressure has been on the lower side and it is unclear whether the elevated serum creatinine is due to previous hemodynamic changes. She has also been on PPI for the last year. Her urine has been bland without blood or protein. Given the stability of her serum creatinine and bland urine sediment, there is no need for additional workup at this time but it is reasonable to obtain a renal ultrasound to evaluate for structural abnormalities. She likely has stage 2 CKD.Given recent diarrhea, we will repeat serum creatinine today. We will also check a Cystatin C level. Today we discussed the possibility of reducing or stopping spironolactone but patient did not wantto as her acne returned in the past when she stopped it. In terms of PPI, she can continue if thereis a strong indication given stable renal function. We discussed avoiding NSAIDs if possible. Hypertension: BP is low normal and she is not symptomatic. She is currently taking spironolactone 50 mg daily and she wishes to continue this, as above. DISPOSITION: The patient wishes to continue to follow up in the nephrology clinic. She will return in 1 year. Julia Ramos MD [facility] Nephrology (Team Sandie) Cosigned by Erna Hooper MD at 12/18/2022 5:40 PM CDT Associated attestation - Erna Hooper MD - 12/18/2022 5:40 PM CDT I saw and examined the patient on 12/02/2022 and discussed the management of this patient with the renal fellow. I agree with the findings and plan of care as documented in the renal fellow's note. documented in this encounter Plan of Treatment Not on file documented as of this encounter Results * Renal function panel (12/02/2022 10:14 AM CDT) Sodium 141 135 - 145 mmol/L [facility] Potassium, pl 4.4 3.3 - 4.9 mmol/L [facility] Chloride 105 97 - 110 mmol/L [facility] CO2 30 22 - 32 mmol/L [facility] Anion gap 6 2 - 15 mmol/L [facility] BUN 12 8 - 25 mg/dL [facility] Creatinine 1.01 0.60 - 1.10 mg/dL [facility] Glucose 99 70 - 199 mg/dL [facility] Comment: Interpretive Data Fasting glucose >/= 126 [...] 2022. Calcium 9.6 8.5 - 10.3 mg/dL [facility] Phosphorus, pl 3.5 2.3 - 4.5 mg/dL [facility] Albumin 4.7 3.5 - 5.0 g/dL [facility] Blood 12/02/2022 10:1 4 AM CDT 12/02/2022 10:30 AM CDT Julia Ramos MD LAB BLOOD ORDERABLES Final Resul t Performing Organization Address [facility] de Phone Number [facility] Department [place] [address] * Cystatin C (12/02/2022 10:14 AM CDT) Cystatin C 0.86 0.60 - 1.20 mg/L [facility] Comment: Interpretive Data Cystatin C concentrations vary widely in the first month of life, particularly in pre-term infants. ??Concentrations gradually diminish to adult levels by 1 year of life. ??Concentrations tend to rise with diminishing renal function in individuals greater than 60 years of age. ??Current Interpretive Data was last revised on 2020. Testing performed by: [facility], [facility], [place]., [address] Blood 12/02/2022 10:1 4 AM CDT 12/02/2022 10:34 AM CDT Julia Ramos MD LAB BLOOD ORDERABLES Final Resul t Performing Organization Address [facility] de Phone Number [facility] Department [place] [address] documented in this encounter Visit Diagnoses Diagnosis Elevated serum creatinine Other nonspecific findings on examination of blood documented in this encounter Discontinued Medications Medication Sig Discontinue Reason Start Date End Da te traZODone (DESYREL) 50 mg tablet 04/22/2022 12/02/2022 documented as of this encounter Historical Medications * This list may reflect changes made after this encounter. clonazePAM (KlonoPIN) 0.5 mg tablet as needed 11/19/2022 added in this encounter Orders Outpatient Referral Count Last Ordered Date Fir st Ordered Date AMB REFERRAL TO NEPHROLOGY 1 12/02/2022 documented in this encounter Care Teams Accounting Administrator Relationship Specialty Start Date End Date Eliseo Lambert MD PCP - General Family Medicine 05/21/20 06/29/23 documented as of this encounter
--- OUTSIDE RECORDS SUMMARY | 2024-06-25 09:50 | XMS_ITS | Encounter Summary ---
Author Organization [facility] Address [address] [facility] [address] [place] [id number] Care Team Providers Care Farm Implement Engine Mechanic Name Role Phone Eliseo Lambert MD Primary Care Provider Reason for Visit * Reason Comments Urinary Symptom Increased urgency fo r 2 days. Achy back and lower abdominal pressure. 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 Not on file Not on file documented as of this encounter Last Filed Vital Signs Vital Sign Reading Time Taken Comments Blood Pressure 100/58 12/15/2022 5:51 PM CDT Pulse 85 12/15/2022 5:51 PM CDT Temperature 36.3 ??C (97.4 ??F) 12/15/2022 5:51 PM CD T Respiratory Rate 16 12/15/2022 5:51 PM CDT Oxygen Saturation 97% 12/15/2022 5:51 PM CDT Inhaled Oxygen Concentration - - Weight 54.4 kg (120 lb) 12/15/2022 5:51 PM CDT Height 154.9 cm (5' 1 ) 12/15/2022 5:51 PM CDT Body Mass Index 22.67 12/15/2022 5:51 PM CDT documented in this encounter Patient Instructions * Patient Instructions* Anastasia Miles NP - 12/15/2022 6:00 PM CDT Treatment of urinary symptoms: Take your prescribed antibiotic until it is gone. Stopping your antibiotic early puts you at risk for developing an antibiotic resistant infection. Most people have symptom relief with their antibiotic within the first day (some even within a few hours of the first dose). In the meantime you may use Pyridium as needed for burning upon urination- do not use for more than3 days as this can mask the symptoms of a worsening infection. Pyridium will turn your urine orange. May take Tylenol/Motrin for pain Drink plenty of water and fluids. Cranberry products are not proven to treat or prevent urinary tract infections however there is probably not much harm in taking them if you wish to do so. Avoid citrus juices, caffeine, alcohol, and intercourse (bladder irritants) until your symptoms resolve and treatment is complete. To prevent UTI in the future: Increase your water intake. Urine should be clear or nearly clear. Attempt to empty your bladder every 2-3 hours and do not hold urine for long periods of time. Always wipe from front to back. Void before and after intercourse. Avoid tight-fitting jeans, nylon or thong underwear as they can trap moisture and help bacteria grow. Cotton underwear and loose-fitting clothes should be worn. Call you PRIMARY CARE PROVIDER should your symptoms fail to improve or worsen. Go to the ER if you experience any severe back, flank, or groin pains, fever >101 that does not respond to Motrin or Tylenol, persistent vomiting, or any other worsening symptoms documented in this encounter Ordered Prescriptions Prescription Sig Dispense Quantity Refills Last Filled Start Date End Date ciprofloxacin (CIPRO) 500 mg tabletIndications: Acute cystitis with hematuria Take 1 tablet (500 mg total) by mouth 2 (two) times a day for 7 days 14 tablet 12/15/2022 12/22/2022 documented in this encounter Progress Notes * Anastasia Miles NP - 12/15/2022 6:00 PM CDT Images from the original note were not included. Subjective/Objective Patient ID: Kristy Kapoor is a 47 y.o. female. Chief Complaint Urinary Symptom (Increased urgency for 2 days. Achy back and lower abdominal pressure.) Patient presents to [facility] care for urinary frequency, dysuria, and urinary urgency x3 days. Over the last day she is noticed some low back pain and abdominal cramping. She states she has a history of UTIs. She is not taken any OTC medications for her symptoms. She denies any fevers or chills. Review of Systems Constitutional: Negative for chills, fatigue and fever. Gastrointestinal: Positive for abdominal pain (Abdominal cramping). Negative for nausea and vomiting. Genitourinary: Positive for dysuria, flank pain, frequency and urgency. Negative for difficulty urinating and hematuria. Neurological: Negative for headaches. Psychiatric/Behavioral: Negative for confusion. Physical Exam Vitals reviewed. Constitutional: Appearance: Normal appearance. She is well-developed. She is not ill-appearing. HENT: Head: Normocephalic. Mouth/Throat: Mouth: Mucous membranes are moist. Pharynx: Oropharynx is clear. Cardiovascular: Rate and Rhythm: Normal rate and regular rhythm. Pulmonary: Effort: Pulmonary effort is normal. Breath sounds: Normal breath sounds. Abdominal: General: Abdomen is flat. Bowel sounds are normal. There is no distension. Palpations: Abdomen is soft. There is no hepatomegaly or splenomegaly. Tenderness: There is no abdominal tenderness. There is no right CVA tenderness or left CVA tenderness. Musculoskeletal: General: Normal range of motion. Skin: General: Skin is warm and dry. Neurological: Mental Status: She is alert and oriented to person, place, and time. Mental status is at baseline. Psychiatric: Mood and Affect: Mood normal. Behavior: Behavior normal. Behavior is cooperative. Thought Content: Thought content normal. Judgment: Judgment normal. Vitals: 12/15/22 1751 BP: 100/58 Pulse: 85 Resp: 16 Temp: 36.3 ??C (97.4 ??F) TempSrc: Temporal SpO2: 97% Weight: 54.4 kg (120 lb) Height: 154.9 cm (5' 1 ) Assessment/Plan UA cloudy, large blood, small leukocytes Urine culture ordered Ciprofloxacin as prescribed --start antibiotic as directed. Discussed importance of compliance of antibiotics and possibility of change depending on culture results and susceptibilities --void before and after sexual intercourse and wipe front to back post-void --avoid alcohol, caffeine and citrus juices as this can cause irritation --monitor urine for foul odor, color change, hematuria, cloudiness, change in frequency or urgency --symptoms warranting ED presentation: chest tightness, SOB, inability to maintain oral intake, confusion, fever greater than 100.9 ?? for more than 4 hours w/o improvement w/ antipyretics --f/u with PCP if symptoms do not improve in 5-7 days Diagnoses and all orders for this visit: Acute cystitis with hematuria (Primary) - ciprofloxacin (CIPRO) 500 mg tablet; Take 1 tablet (500 mg total) by mouth 2 (two) times a day for 7 days Urinary tract infection symptoms - POCT urinalysis dipstick - Urine culture Urine, clean voided; Future Recent Results (from the past 4 hour(s)) POCT urinalysis dipstick Collection Time: 12/15/22 6:00 PM Result Value Ref Range Color, Urine, POC Light Yellow Clarity, ur, POC Cloudy (A) Clear Glucose, ur, POC Negative Negative MG/DL Bilirubin, ur, POC Negative Negative, Small, Moderate, Large Ketones, ur, POC Negative Negative Specific [place], POC 1.005 1.003 - 1.030 Blood, ur, POC Large (A) Negative pH, ur, POC 5.5 5.0 - 8.0 Protein, ur, POC Negative Negative Urobilinogen, urine, POC 0.2 0.2 - 1.0 mg/dL Nitrite, ur, POC Negative Negative Leukocytes, ur, POC Small (A) Negative Lot Number [id number] Patient Education: Disposition Treatment plan including expectations, follow up, and return precautions discussed with patient/parent, verbalizes understanding. Medication dosage, use, and potential adverse reactions discussed with patient/parent. Advised to follow up with PCP if symptoms do not resolve as expected or sooner if condition worsens. Signs/symptoms warranting ER evaluation reviewed. Patient and/or guardian was given an opportunity to ask questions, questions answered. Anastasia Miles NP documented in this encounter Plan of Treatment Not on file documented as of this encounter Procedures Procedure Name Priority Date/Time Associated Diagnosis Comments POCT URINALYSIS DIPSTICK Routine 12/15/2022 6:00 PM CDT Urinary tract infection symptoms documented in this encounter Results * (ABNORMAL) POCT urinalysis dipstick (12/15/2022 6:00 PM CDT) Color, Urine, POC Light Yellow Clarity, ur, POC Cloudy(A) Clear Glucose, ur, POC Negative Negative MG/DL Bilirubin, ur, POC Negative Negative, Small, Moderate, Large Ketones, ur, POC Negative Negative Specific [place], POC 1.005 1.003 - 1.030 Blood, ur, POC Large(A) Negative pH, ur, POC 5.5 5.0 - 8.0 Protein, ur, POC Negative Negative Urobilinogen, urine, POC 0.2 0.2 - 1.0 mg/dL Nitrite, ur, POC Negative Negative Leukocytes, ur, POC Small(A) Negative Lot Number [id number] Urine 12/15/2022 6:00 PM CDT Anastasia Miles NP POINT OF CARE TEST ORDERABLES Fi nal Result * (ABNORMAL) Urine culture Urine, clean voided (12/15/2022 5:48 PM CDT) Report Final Report: Greater than or equal to 100,000 colonies/mL of Escherichia coli (.) JANIE PULIDO Comment:Testing performed by : [facility], [address] [facility] [place]., [address] Organism ESCHERICHIA COLI JANIE Urine, clean voided 12/15/2022 5:48 PM CDT 12/16/2022 3:32 PM CDT Narrative JANIE PULIDO - 12/18/2022 9:23 AM CDT Testing performed by [facility] ([phone]) Organism Antibiotic Method Susceptibility Escherichia coli Ampicillin [...] INTERPRETATION Susceptible Escherichia coli Cefdinir INTERPRETATION Susceptible Anastasia Miles [employer] [facility] MICROBIOLOGY - GENERAL ORDER LUNA Final Result JANIE [id number] [facility] [place] [address] documented in this encounter Visit Diagnoses Diagnosis Acute cystitis with hematuria- Primary Urinary tract infection symptoms Urinary tract infection symptoms documented in this encounter Care Teams Farm Implement Engine Mechanic Relationship Specialty Start Date End Date Eliseo Lambert MD PCP - General Family Medicine 05/21/20 06/29/23 documented as of this encounter
--- OUTSIDE RECORDS SUMMARY | 2024-06-25 09:51 | XMS_ITS | Encounter Summary ---
Author Organization [facility] Address [address] [facility] [address] [place] [address] Care Team Providers Care Biomedical Service Engineer Name Role Phone Eliseo Lambert MD Primary Care Provider Reason for Visit * Reason Onset Date Comments Medical Question/Miscellaneous 11/02/2022 Encounter Details Date Type Department Care Team (Late st Contact Info) Description 11/02/2022 Telephone [facility] Primary Care at [address] [place] [address] Elieso Lambert MD [address] [place] [address] [address] [place] [address] Medical Question/Miscellaneous Social History Tobacco Use Types Packs/Day Years [...] on file 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 States her kidney numbers dropped. She has had diarrhea for 4 weeks, she has no appetite, and is fatigued. She is requesting to speak to pcp's SHANON about this. She is scheduled to see pcp tomorrow but it was bumped until 11/10. Caller???s Call back #: [phone] Does message need to be routed? Yes-Action Needed documented in this encounter Plan of Treatment Not on file documented as of this encounter Visit Diagnoses Not on filedocumented in this encounter Care Teams Biomedical Service Engineer Relationship Specialty Start Date End Date Eliseo Lambert MD PCP - General Family Medicine 05/21/20 06/29/23 documented as of this encounter
--- OUTSIDE RECORDS SUMMARY | 2024-06-25 09:51 | XMS_ITS | Encounter Summary ---
Author Organization [facility] Address [address] [facility] [address] [place] [address] Care Team Providers Care Director Of Curriculum Name Role Phone Eliseo Lambert MD Primary Care Provider Reason for Visit * Reason Onset Date Comments Lab Results 05/07/2022 Encounter Details Date Type Department Care Team ([facility] st Contact Info) Description 05/07/2022 Telephone [facility] Primary Care at [address] [place] [address] Eliseo Lambert MD [address] [place] [address] [address] [place] [address] Lab Results Social History Tobacco Use Types Packs/Day Years Used Date Smoking Tobacco: Every Day Cigarettes Smokeless Tobacco: Never Alcohol Use Standard Drinks/Week Comments No 0 (1 standard drink = 0.6 oz pur e alcohol) PHQ-2 Answer Date Recorded PHQ-2 Total Score (If total score is 3 or more points, staff should administer the PHQ-9) 0 05/05/2022 Comments No Sex and Gender Information Value Date Recorded Sex Assigned at Not on file Legal Sex Female 1:17 AM DIRECTOR OF CURRICULUM Gender Identity Not on file Sexual Orientation Not on file 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 She expressed understanding. CTOR OF CURRICULUM CTOR OF CURRICULUM * Telephone Encounter - Eliseo Lambert MD - 05/11/2022 1:22 PM DIRECTOR OF CURRICULUM Please let her know that that is the total cholesterol level which is 199 and not her LDL, it is still relatively well controlled and is not considered high CTOR OF CURRICULUM * Telephone Encounter - Nicole Martini MA - 05/07/2022 9:03 AM CST Pt aware. Stated she would like to discuss her Cholesterol number with you because it is high at 199 CTOR OF CURRICULUM * Telephone Encounter - Nicole Martini MA - 05/07/2022 9:02 AM CST ----- Message from Eliseo Lambert MD sent at 05/07/2022 5:29 AM DIRECTOR OF CURRICULUM ----- Reassuring findings on lab work with good improvement in vitamin D level and stable kidney function. CTOR OF CURRICULUM documented in this encounter Plan of Treatment Not on file documented as of this encounter Visit Diagnoses Not on filedocumented in this encounter Care Teams Director Of Curriculum Relationship Specialty Start Date End Date Eliseo Lambert MD PCP - General Family Medicine 05/21/20 06/29/23 documented as of this encounter
--- OUTSIDE RECORDS SUMMARY | 2024-06-25 09:51 | XMS_ITS | Encounter Summary ---
Author Organization [facility] Address [address] [place] [id number] Care Team Providers Care Design Engineering Intern Name Role Phone Eliseo Lambert MD Primary Care Provider Reason for Visit * Reason Comments Diarrhea Encounter Details Date Type Department Care Team ([facility] st Contact Info) Description 11/01/2022 10:38 AM CDT - 11/01/2022 12:51 PM CDT Emergency [facility] Emergency Department 1 [place] [address] Parag Douglas MD 1 [facility] [place] [address] [place] [address] Diarrhea, unspecified type (Primary Dx); Stage 2 chronic kidney disease Discharge Disposition: Discharge to home or self [...] on file 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 Gender Identity Not on file Sexual Orientation Not on file 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 Not on file Not on file documented as of this encounter Last Filed Vital Signs Vital Sign Reading Time Taken Comments Blood Pressure 148/95 11/01/2022 10:43 AM CDT Pulse 90 11/01/2022 10:43 AM CDT Temperature 36.7 ??C (98 ??F) 11/01/2022 10:43 AM CDT Respiratory Rate 18 11/01/2022 10:43 AM CDT Oxygen Saturation 100% 11/01/2022 10:43 AM CDT Inhaled Oxygen Concentration - - Weight 56.2 kg (124 lb) 11/01/2022 10:43 AM CDT Height 154.9 cm (5' 1 ) 11/01/2022 10:43 AM CDT Body Mass Index 23.43 11/01/2022 10:43 AM CDT documented in this encounter Discharge Instructions * Discharge Instructions* Parag Douglas MD - 11/01/2022 12:12 PM CDT Drink more fluids as tolerated, rest, follow with your primary doctor documented in this encounter Medications at Time [...] EVERY DAY 90 capsule 3 07/24/19 23 ondansetron ODT (ZOFRAN-ODT) 4 mg disintegrating tablet Take 1 tablet (4 mg total) by mouth every 8 (eight) hours as needed for nausea or vomiting 20 tablet 11/04/19 22 OneTouch Verio Flex meter misc 09/20/19 21 atorvastatin (LIPITOR) 20 mg tabletIndications:Pure hypercholesterolemia TAKE ONE TABLET BY MOUTH EVERY DAY 90 tablet 1 06/09/20 22 023 cyclobenzaprine (FLEXERIL) 10 mg tabletIndications:Muscle Spasm Take 1 tablet (10 mg total) by mouth 2 (two) times a day as needed for muscle spasms 30 tablet 11/16/19 21 023 lidocaine (LIDODERM) 5 % Place 1 patch on the skin daily for 10 days Remove & discard patch within 12 hours or as directed by MD. 10 patch 05/12/[address] (PROTONIX) 40 mg EC tabletIndications:Abdomi nal pain TAKE ONE TABLET BY MOUTH EVERY DAY 90 tablet 1 09/02/19 23 023 spironolactone (ALDACTONE) 50 mg tabletIndications:Cystic acne vulgaris TAKE ONE TABLET BY MOUTH EVERY DAY 90 tablet 2 09/22/19 23 023 traZODone (DESYREL) 50 mg tablet 04/22/20 22 023 documented as of this encounter Discharge Disposition Disposition Code Departure Means Destination Comment s Discharge to home or self care documented in this encounter ED Notes * Parag Douglas MD - 11/01/2022 12:44 PM CDT HPI Chief Complaint Patient presents with Diarrhea 47-year-old with a history of CKD here with the complaints of diarrhea for last several weeks. No history of recent antibiotic use. No history of fever or chills. This morning she is felt lightheaded. Denies any blood in the stool. Patient History: Patient Active Problem List Diagnosis Date Noted Chest pain 05/18/2022 Need for influenza vaccination 03/23/2022 Encounter for routine adult physical exam with abnormal findings 03/23/2022 Abnormal finding 02/11/2022 Gastroesophageal reflux disease 01/08/2022 [...] History: Procedure Laterality Date BREAST LUMPECTOMY Left benign findings FACIAL COSMETIC SURGERY GALLBLADDER SURGERY Family History Problem Relation Age of Onset Heart disease Other Family history of Cardiovascular disease; Diabetes Other Family history of Diabetes mellitus; Hypertension Mother Atrial fibrillation Father Coronary artery disease Father No Known Problems Brother Breast cancer Father's Sister Social History Tobacco Use Smoking status: Every Day Packs/day: 0.30 Types: Cigarettes Smokeless tobacco: Never Vaping Use Vaping status: Never Used Substance and Sexual Activity Alcohol use: No Drug use: No Sexual activity: Not on file Social History Social History Narrative Lives with her 3 younger children. Review of Systems Review of Systems Constitutional: Positive for fatigue. HENT: Negative. Respiratory: Negative. Cardiovascular: Negative. Gastrointestinal: Positive for diarrhea. Endocrine: Negative. Genitourinary: Negative. Musculoskeletal: Negative. Psychiatric/Behavioral: Negative. Physical Exam ED Triage Vitals [11/01/22 1043] Temp Pulse Resp BP SpO2 36.7 ??C (98 ??F) 90 18 148/95 100 % Temp src Heart Rate Source Patient Position BP Location FiO2 (%) -- -- -- -- -- Height Height Method Weight Weight Method 1.549 m (5' 1 ) -- 56.2 kg (124 lb) -- Physical Exam Vitals and nursing note reviewed. Constitutional: Appearance: Normal appearance. HENT: Head: Normocephalic and atraumatic. Nose: Nose normal. Eyes: Pupils: Pupils are equal, round, and reactive to light. Cardiovascular: Rate and Rhythm: Normal rate and regular rhythm. Pulmonary: Effort: Pulmonary effort is normal. Breath sounds: Normal breath sounds. Abdominal: Palpations: Abdomen is soft. Musculoskeletal: General: Normal range of motion. Cervical back: Normal range of motion. Skin: General: Skin is warm. Neurological: General: No focal deficit present. Mental Status: She is alert and oriented to person, place, and time. Psychiatric: Mood and Affect: Mood normal. Results for orders placed or performed during the hospital encounter of 11/01/22 Urinalysis reflex to microscopic and culture Urine Specimen: Urine Result Value Ref Range Color, ur Straw Yellow Clarity, ur Clear Clear Specific gravity, ur 1.003 1.003 - 1.030 pH, urine 7.5 Protein, ur ql Negative Negative Glucose, ur ql Negative Negative Ketones, ur Negative Negative Bilirubin, ur Negative Negative Blood, ur Negative Negative Urobilinogen, ur <2.0 <2.0 mg/dL Nitrite, ur Negative Negative Leukocyte esterase, ur Negative Negative UA reflex comment Reflex conditions for microscopic UA and culture not met. CBC with auto differential Result Value Ref Range WBC 4.4 3.8 - 9.9 K/cumm Hgb 12.9 11.9 - 15.5 g/dL Hct 39.4 35.6 - 45.5 % Plt 259 150 - 400 K/cumm MPV 9.9 9.1 - 12.3 fL RBC 4.05 3.90 - 5.20 M/cumm MCV 97.3 (H) 81.3 - 96.4 fL MCH 31.9 27.1 - 33.3 pg MCHC 32.7 32.3 - 35.7 g/dL RDW CV 12.3 11.1 - 14.9 % RDW SD 44.5 35.7 - 48.1 fL NRBC abs 0.00 0.00 - 0.01 K/cumm Comprehensive metabolic panel Result Value Ref Range Sodium 141 135 - 145 mmol/L Potassium, pl 4.2 3.3 - 4.9 mmol/L Chloride 102 97 - 110 mmol/L CO2 30 22 - 32 mmol/L Anion gap 9 2 - 15 mmol/L BUN 8 8 - 25 mg/dL Creatinine 1.02 0.60 - 1.10 mg/dL Glucose 89 70 - 199 mg/dL Calcium 10.3 8.5 - 10.3 mg/dL Bilirubin, total 0.6 0.1 - 1.2 mg/dL Protein, pl 8.1 6.5 - 8.5 g/dL Albumin 4.9 3.5 - 5.0 g/dL Alk phos 92 40 - 130 Units/L ALT 15 7 - 45 Units/L AST 25 10 - 45 Units/L Differential, auto Result Value Ref Range Neutrophil abs 2.2 1.7 - 6.5 K/cumm Imm gran abs 0.0 0.0 - 0.1 K/cumm Lymphocyte abs 1.8 0.8 - 3.3 K/cumm Monocyte abs 0.3 0.2 - 0.8 K/cumm Eosinophil abs 0.1 0.0 - 0.5 K/cumm Basophil abs 0.1 0.0 - 0.1 K/cumm Neutrophil pct 50.9 % Imm gran pct 0.2 % Lymphocyte pct 40.0 % Monocyte pct 6.4 % Eosinophil pct 1.4 % Basophil pct 1.1 % eGFR Result Value Ref Range eGFR 67 mL/min/1.73 m2 [facility] Medical Decision Making ED Course as of 11/01/22 1248 Time: 11/01 1246 Comment: Inform patient about her lab work, recommended her to drink more fluids, rest, follow withher primary doctor as well as Nephrology By: aPrag Douglas MD Final diagnoses: Diarrhea, unspecified type Stage 2 chronic kidney disease Parag Douglas MD 11/01/22 1248 * Marga Saavedra RN - 11/01/2022 10:42 AM CDT Patient arrives for evaluation of diarrhea x4 weeks. Patient also reports nausea and abdominal cramping. documented in this encounter Plan of Treatment Not on file documented as of this encounter Procedures Procedure Name Priority Date/Time Associated Diagnosis Comments URINALYSIS AND REFLEX TO MICROSCOPIC AND CULTURE STAT 11/01/2022 11:17 AM CDT EGFR STAT 11/01/2022 11:00 AM CDT DIFFERENTIAL AUTO STAT 11/01/2022 11: 00 AM CDT CBC WITH AUTO DIFFERENTIAL STAT 11/01/2022 11:00 AM CDT COMPREHENSIVE METABOLIC PANEL STAT 11/01/2022 11:00 AM CDT documented in this encounter Results * Urinalysis reflex to microscopic and culture Urine (11/01/2022 11:17 AM CDT) Color, ur Straw Yellow [facility]) Clarity, ur Clear Clear [facility] ([facility]) Specific gravity, ur 1.003 1.003 - 1.030 [facility] pH, urine 7.5 [facility]) Protein, ur ql Negative Negative [facility]) Glucose, ur ql Negative Negative [facility]) Ketones, ur Negative Negative [facility]) Bilirubin, ur Negative Negative [facility] Blood, ur Negative Negative [facility]) Urobilinogen, ur <2.0 <2.0 mg/dL [facility]) Nitrite, ur Negative Negative [facility]) Leukocyte esterase, ur Negative Negative [facility]) UA reflex comment Reflex conditions for microscopic UA and culture not met. [facility]) Urine 11/01/2022 11:1 7 AM CDT 11/01/2022 11:23 AM CDT Narrative [facility]) - 11/01/2022 11:26 AM CDT ?? Urine pH is affected by diet, medications, systemic acid-base disturbances, and renal tubular function. ??pH may affect urinary stone formation. ??For example, urine pH below 6.0 may help reduce the tendency for calcium phosphate stones and pH greater than 6.0 may reduce the tendency for uric acid stone formation. Source: [employer]. Last revised 07-08-2017 us Parag Douglas MD LAB MICROBIOLOGY - GENERAL ORD ERABLES Final Result [facility] 1 [facility] Department [place] [address] * eGFR (11/01/2022 11:00 AM CDT) eGFR 67 mL/min/1. 73 m2 [facility] Comment: Interpretive Data Reference Interval Normal ?>/= [...] interpretive data was last reviewed 2021. Blood 11/01/2022 11:0 0 AM CDT 11/01/2022 11:03 AM CDT us Parag Douglas MD LAB BLOOD ORDERABLES Final Res ult [facility] 1 [facility] Department [place] [address] * Differential, auto (11/01/2022 11:00 AM CDT) Neutrophil abs 2.2 1.7 - 6.5 K/cumm [facility]) Imm gran abs 0.0 0.0 - 0.1 K/cumm [facility] ([facility]) Lymphocyte abs 1.8 0.8 - 3.3 K/cumm [facility] ([facility]) Monocyte abs 0.3 0.2 - 0.8 K/cumm [facility] ([facility]) Eosinophil abs 0.1 0.0 - 0.5 K/cumm [facility]) Basophil abs 0.1 0.0 - 0.1 K/cumm [facility]) Neutrophil pct 50.9 % [facility] ([facility]) Comment: Interpretive Data Percent cell count reference ranges are not reported, since discordance with absolute values may lead to misinterpretation of CBC data. Current Interpretive Data was last revised on 2017. Imm gran pct 0.2 % [facility] Comment: Interpretive Data Percent cell count reference ranges are not reported, since discordance with absolute values may lead to misinterpretation of CBC data. Current Interpretive Data was last revised on 2017. Lymphocyte pct 40.0 % [facility] Comment: Interpretive Data Percent cell count reference ranges are not reported, since discordance with absolute values may lead to misinterpretation of CBC data. Current Interpretive Data was last revised on 2017. Monocyte pct 6.4 % [facility] Comment: Interpretive Data Percent cell count reference ranges are not reported, since discordance with absolute values may lead to misinterpretation of CBC data. Current Interpretive Data was last revised on 2017. Eosinophil pct 1.4 % [facility] Comment: Interpretive Data Percent cell count reference ranges are not reported, since discordance with absolute values may lead to misinterpretation of CBC data. Current Interpretive Data was last revised on 2017. Basophil pct 1.1 % [facility] Comment: Interpretive Data Percent cell count reference ranges are not reported, since discordance with absolute values may lead to misinterpretation of CBC data. Current Interpretive Data was last revised on 2017. Blood 11/01/2022 11:0 0 AM CDT 11/01/2022 11:03 AM CDT Parag Douglas MD LAB BLOOD ORDERABLES Final Res ult [facility] 1 [facility] Department [place] [address] * Comprehensive metabolic panel (11/01/2022 11:00 AM CDT) Sodium 141 135 - 145 mmol/L [facility]) Potassium, pl 4.2 3.3 - 4.9 mmol/L [facility]) Chloride 102 97 - 110 mmol/L [facility]) CO2 30 22 - 32 mmol/L [facility]) Anion gap 9 2 - 15 mmol/L [facility]) BUN 8 8 - 25 mg/dL [facility]) Creatinine 1.02 0.60 - 1.10 mg/dL [facility]) Glucose 89 70 - 199 mg/dL [facility]) Comment: Interpretive Data Fasting glucose >/= 126 [...] classification and Diagnosis of Diabetes Diabetes Care 202; 46: S19-S40. Current interpretive data was last revised 2022. Calcium 10.3 8.5 - 10.3 mg/dL [facility]) Bilirubin, total 0.6 0.1 - 1.2 mg/dL [facility]) Protein, pl 8.1 6.5 - 8.5 g/dL [facility]) Albumin 4.9 3.5 - 5.0 g/dL [facility]) Alk phos 92 40 - 130 Units/L [facility]) ALT 15 7 - 45 Units/L [facility]) AST 25 10 - 45 Units/L [facility]) Blood 11/01/2022 11:0 0 AM CDT 11/01/2022 11:03 AM CDT Parag Duoglas MD LAB BLOOD ORDERABLES Final Res ult [facility] 1 [facility] [place] [address] * (ABNORMAL) CBC with auto differential (11/01/2022 11:00 AM CDT) WBC 4.4 3.8 - 9.9 K/cumm [facility]) Hgb 12.9 11.9 - 15.5 g/dL [facility]) Hct 39.4 35.6 - 45.5 % [facility]) Plt 259 150 - 400 K/cumm [facility]) MPV 9.9 9.1 - 12.3 fL [facility] RBC 4.05 3.90 - 5.20 M/cumm [facility]) MCV 97.3(H) 81.3 - 96.4 fL [facility]) MCH 31.9 27.1 - 33.3 pg [facility]) MCHC 32.7 32.3 - 35.7 g/dL [facility]) RDW CV 12.3 11.1 - 14.9 % [facility]) RDW SD 44.5 35.7 - 48.1 fL [facility]) NRBC abs 0.00 0.00 - 0.01 K/cumm [facility]) Blood 11/01/2022 11:0 0 AM CDT 11/01/2022 11:03 AM CDT Parag Douglas MD LAB BLOOD ORDERABLES Final Res ult Performing Organization Address City/[facility]/ZIP Co de Phone Number [facility] [address] [facility] [place] [address] documented in this encounter Visit Diagnoses Diagnosis Diarrhea, unspecified type- Primary Stage 2 chronic kidney disease documented in this encounter Administered Medications Inactive Administered Medications - up to 3 most recent administrations Medication Order MAR Action Action Date Dose Rate Site sodium chloride 0.9% bolus 1,000 mL 1,000 mL, intravenous, at 1,000 mL/hr, Administer over 1 Hours, Once, On 11/01/22 at 1043, For 1 dose New Bag 11/01/2022 11:02 AM CDT 1,000 mL 1000 mL/hr documented in this encounter Active and Recently Administered Medications Times are shown in CDT. Scheduled Medication Order 10/30/2022 10/31/2022 11/01/2022 sodium chloride 0.9% bolus 1,000 mL (COMPLETED) 1,000 mL, intravenous, at 1,000 mL/hr, Administer over 1 Hours, Once, On 11/01/22 at 1043, For 1 dose 1102 (New Bag - Prov ider: Alpa Cr RN)1241 (Stopped - Provider: Rose Mary Cota RN) documented in this encounter Orders Medications Ordered That Diogenes ht Not Have Been Administered Count Last Ordered Date First Ordered Date sodium chloride 0.9% bolus 1,000 mL 1 11/01 documented in this encounter Care Teams Design Engineering Intern Relationship Specialty Start Date End Date Eliseo Lambert MD PCP - General Family Medicine 05/21/20 06/29/23 documented as of this encounter
--- OUTSIDE RECORDS SUMMARY | 2024-06-25 09:51 | XMS_ITS | Encounter Summary ---
Author Organization [facility] Address [address] [place] [address] Care Team Providers Care Core Winder Machine Operator Name Role Phone Eliseo Lambert MD Primary Care Provider Reason for Visit * Reason Comments Diarrhea On set 4 weeks ago Encounter Details Date Type Department Care Team ([facility] Contact Info) Description 11/02/2022 3:15 PM CDT Office Visit [facility] Primary Care at [address] [place] [address] Eliseo Lambert MD [address] [place] [address] A [facility] [address] [place] [address] Diarrhea, unspecified type (Primary Dx); Post-cholecystectomy syndrome; CKD (chronic kidney disease) stage 2, GFR [...] on file Legal Sex Female 1:17 AM CEMENT PAVER Gender Identity Not on file Sexual Orientation Not on file Occupation Industry Job Start Date Job End Date [employer] Not on file Not on file Not on file documented as of this encounter Last Filed Vital Signs Vital Sign Reading Time Taken Comments Blood Pressure 116/78 11/02/2022 3:23 PM CDT Pulse 92 11/02/2022 3:23 PM CDT Temperature 37.3 ??C (99.2 ??F) 11/02/2022 3:23 PM CD T Respiratory Rate - - Oxygen Saturation 99% 11/02/2022 3:23 PM CDT Inhaled Oxygen Concentration - - Weight 55.8 kg (123 lb) 11/02/2022 3:23 PM CDT Height 154.9 cm (5' 1 ) 11/02/2022 3:23 PM CDT Body Mass Index 23.24 11/02/2022 3:23 PM CDT documented in this encounter Ordered Prescriptions Prescription Sig Dispense Quantity Refills Last Filled Start Date End Date cholestyramine (QUESTRAN) 4 gram powderIndications: Post-cholecystecto my syndrome Take 1 packet (4 g total) by mouth 3 (three) times a day with meals 90 packet 11/02/2022 03/15/2023 documented in this encounter Progress Notes * Eliseo Lambert MD - 11/02/2022 3:15 PM CDT Images from the original note were not included. Assessment/Plan Diagnoses and all orders for this visit: Diarrhea, unspecified type (Primary) - Celiac reflex panel; Future - Fecal fat, qualitative; Future - Pancreatic elastase, stool; Future - C. difficile testing Stool; Future - Stool culture Stool Rectum; Future - Cryptosporidium and giardia antigen assay Stool; Future Post-cholecystectomy syndrome - cholestyramine (QUESTRAN) 4 gram powder; Take 1 packet (4 g total) by mouth 3 (three) times a daywith meals CKD (chronic kidney disease) stage 2, GFR [...] 11/01/2022 ALT 15 11/01/2022 PHOS 3.4 09/26/2021 Patient presenting with acute diarrhea this been going on for 4 weeks without resolution. Prior to this she is had episodes of alternating constipation and diarrhea but reports it has never been thisprolonged. He denies any recent travel or exotic food intake. Given her history of gallbladder surgery I would like to trial her on cholestyramine to see if this would improve her symptoms. Also obtain some stool studies the meantime to further delineate what is going on. Given her weight loss I would like to see her back within 1 week. She did complete lab work in the emergency department the day prior with reassuring findings with no significant electrolyte abnormalities. Return in about 1 week (around 11/09/2022). Subjective/Objective Chief Complaint Patient presents with Diarrhea On set 4 weeks ago HPI Kristy Kapoor is a 47 y.o. female who is here for a diarrhea. Patient was seen in the emergency department 1 day prior after presenting with diarrhea for severalweeks. She had lab testing, urinalysis as well as 1 L of normal saline bolus that she was given in the ED. Patient has had some diarrhea in the past ever since she had a cholecystectomy and have past documentation of it being worse with fatty foods. In the past we had discussed about this and she was not using any medications and she was aware that she could use Imodium or the options for it. She states she saw her labs and her EGFR was further down and is worried. She wants a referral to nephrology.She states she is tired and does not feel well. Patient reports history of IBS and multiple family members. States she was having solid fbefore the diarrrhea Please see the assessment and plan section [...] 05/30/2020 Review of Systems Constitutional: Positive for appetite change (decreased), fatigue and unexpected weight change (loss). Negative for chills and fever. Respiratory: Negative for shortness of breath, wheezing and stridor. Cardiovascular: Negative for chest pain and leg swelling. Gastrointestinal: Positive for abdominal pain (cramping like), diarrhea and nausea. Negative for constipation, rectal pain and vomiting. Skin: Negative for rash and wound. Vitals: 11/02/22 1523 BP: 116/78 BP Location: Left arm Patient Position: Sitting Pulse: 92 Temp: 37.3 ??C (99.2 ??F) SpO2: 99% Weight: 55.8 kg (123 lb) Height: 154.9 cm (5' 1 ) Wt Readings from Last 3 Encounters: 11/09/22 54.9 kg (121 lb) 11/02/22 55.8 kg (123 lb) 11/01/22 56.2 kg (124 lb) Body mass index is 23.24 kg/m??. Physical Exam Vitals reviewed. Cardiovascular: Rate and Rhythm: Normal rate and regular rhythm. Pulmonary: Effort: Pulmonary effort is normal. No respiratory distress. Breath sounds: No wheezing. Abdominal: General: Abdomen is flat. There is no distension. Palpations: Abdomen is soft. Tenderness: There is abdominal tenderness. Musculoskeletal: Right lower leg: No edema. Left lower leg: No edema. Neurological: Mental Status: She is alert. Psychiatric: Thought Content: Thought content normal. Eliseo Lambert MD Please note: Voice recognition software Eniram Direct was used dictate and transcribe this document. Network Systems Engineer variances may occur. Despite proofreading, typographical errors may occur. documented in this encounter Miscellaneous Notes * Assessment & Plan Note - Eliseo Lambert MD - 11/02/2022 3:42 PM CDT Associated Problem(s): CKD (chronic kidney disease) [...] Type Priority Associated Diagnoses Orde r Schedule Fecal fat, qualitative Lab Routine Diarrhea, unspecified type Expected: 11/02/2022, Expires: 05/05/2023 documented as of this encounter Results * Celiac reflex panel (11/03/2022 1:16 PM [...] suspected, consider HLA-DQ typing. Test Performed by: [facility] [address] [place] [address] Laboratory Specialist: Sameer Iniguez M.D. Ph.D.; CLIA# [id number] Blood 11/03/2022 1:16 PM CDT 11/03/2022 3:41 PM CDT us Eliseo Lambert MD LAB BLOOD ORDERABLES Fi nal Result [facility] ([facility]) 1 [facility] Department [place] [address] documented in this encounter Visit Diagnoses Diagnosis Diarrhea, unspecified type- Primary Post-cholecystectomy syndrome Postcholecystectomy syndrome CKD (chronic kidney disease) stage 2, GFR 60-89 ml/min Chronic kidney disease, Stage II (mild) documented in this encounter Care Teams Core Winder Machine Operator Relationship Specialty Start Date End Date Eliseo Lambert MD PCP - General Family Medicine 05/21/20 06/29/23 documented as of this encounter
--- OUTSIDE RECORDS SUMMARY | 2024-06-25 09:51 | XMS_ITS | Encounter Summary ---
Author Organization [facility] Healthcare Address [address] [place] [address] Care Team Providers Care Level Vial Inspector Name Role Phone Eliseo Lambert MD Primary Care Provider Reason for Visit * Reason Comments Back Pain Encounter Details Date Type Department Care Team ([facility] st Contact Info) Description 05/12/2022 4:12 PM NC MACHINIST - 05/12/2022 6:52 PM NC MACHINIST Emergency [facility] Emergency Department [address] [place] [address] Acute left-sided low back pain with left-sided sciatica (Primary Dx) Discharge Disposition: Discharge to home or self [...] on file Legal Sex Female 1:17 AM NC MACHINIST Gender Identity Not on file Sexual Orientation Not on file 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 Not on file Not on file documented as of this encounter Last Filed Vital Signs Vital Sign Reading Time Taken Comments Blood Pressure 104/73 05/12/2022 2:12 PM NC MACHINIST Pulse 81 05/12/2022 2:12 PM NC MACHINIST Temperature 37 ??C (98.6 ??F) 05/12/2022 2:12 PM NC MACHINIST Respiratory Rate 18 05/12/2022 2:12 PM NC MACHINIST Oxygen Saturation 100% 05/12/2022 2:12 PM NC MACHINIST Inhaled Oxygen Concentration - - Weight 54.4 kg (120 lb) 05/12/2022 2:12 PM NC MACHINIST Height 154.9 cm (5' 1 ) 05/12/2022 2:12 PM NC MACHINIST Body Mass Index 22.67 05/12/2022 2:12 PM NC MACHINIST documented in this encounter Discharge Instructions * Discharge Instructions* Issac Sheehan NP - 05/12/2022 6:39 PM NC MACHINIST Please return to the ED if you experience fever, chills, chest pain, shortness of breath, or difficulty breathing. Please use proper body mechanics while at work. Please use lidocaine patches as prescribed, you are only able to use once per day due to your creatinine clearance. Please use ice to your lower back, and take the cyclobenzaprine that you already have prescribed athome at night. Please return to the ED if you develop, loss of bowel or bladder, numbness and tingling to both legs, or if you cannot feel your groin [facility] Orthopedic Physicians: [facility] Dr. Santo, Dr. Hagen, Dr Coon, Dr Rodriguez, Dr. Ramírez [address], [facility] [address] [place] [address] ph# [phone] [facility], [facility]. [address]. Robles [place] [address] ph# [phone] [facility] [address] Hickey [address] [place] [address] ph# [phone] Please follow-up with orthopedics, this may take quite some time to get an outpatient appointment Wearing a follow-up with Dr. Mojica who is a portrait painter MACHINIST MACHINIST * Attachments The following attachments cannot be sent through Care Everywhere. * Back Pain (Acute or Chronic) (Mozambican) * Sciatica ([place]ozambican) documented in this encounter Medications at Time [...] total) by mouth every morning 04/12/20 20 ondansetron ODT (ZOFRAN-ODT) 4 mg disintegrating tablet Take 1 tablet (4 mg total) by mouth every 8 (eight) hours as needed for nausea or vomiting 20 tablet 11/04/19 22 OneTouch Verio Flex meter misc 09/20/19 21 atorvastatin (LIPITOR) 20 mg tabletIndications:Pure hypercholesterolemia TAKE ONE TABLET BY MOUTH EVERY DAY 90 tablet 09/19/19 22 022 cholecalciferol (VITAMIN D-3) 5,000 unit tabletIndications:Vitami n D Deficiency Take 1 tablet (5,000 Units total) by mouth daily 90 tablet 3 07/14/19 22 023 cyclobenzaprine (FLEXERIL) 10 mg tabletIndications:Muscle [...] 40 mg EC tabletIndications:Abdomi nal pain TAKE 1 TABLET BY MOUTH DAILY 90 tablet 02/25/20 22 023 spironolactone (ALDACTONE) 50 mg tabletIndications:Cystic acne vulgaris TAKE ONE TABLET BY MOUTH EVERY DAY 90 tablet 1 12/24/19 22 023 traZODone (DESYREL) 50 mg tablet 04/22/20 22 023 documented as of this encounter Ordered Prescriptions Prescription Sig Dispense Quantity Refills Last Filled Start Date End Date lidocaine (LIDODERM) 5 % Place 1 patch on the skin daily for 10 days Remove & discard patch within 12 hours or as directed by . 10 patch 05/12/2022 4 documented in this encounter Discharge Disposition Disposition Code Departure Means Destination Discharge to home or self care documented in this encounter ED Notes * Issac Sheehan, BONNIE - 05/12/2022 6:09 PM CST HPI Chief Complaint Patient presents with Back Pain 46-year-old female patient with PMH anxiety disorder, depression, tubal ligation, and posttraumaticstress disorder. Complaining of back pain that started after she stood up from leaning over the sink while brushing her teeth. Patient states she did not fall, states that she feels like she switch position, and began having left lower back pain radiating into her left hip and buttocks, and traveling down her left leg. Patient also states that the pain travels across her back completely. Denies loss of bowel or bladder, denies numbness and tingling to bilateral lower extremities, and denies saddle anesthesia, patient states she drove to the hospital. Patient states she has muscle relaxers at [facility], and for her prior back pain she is been told to take them, states that she did not take a muscle relaxer today since she decided to drive herself into the hospital. Also denies taking any ibuprofen or Tylenol. Patient states she has stage II kidney disease, and tries not to take any ibuprofen.States her creatinine clearance is 72. Denies falling, denies chest pain, shortness of breath, difficulty breathing, fever, chills. Denies history of IVDA Breast mass, and Patient History: Patient Active Problem List Diagnosis Date Noted Need for influenza vaccination 03/23/2022 Encounter for [...] Cigarettes Smokeless tobacco: Never Vaping Use Vaping Use: Never used Substance and Sexual Activity Alcohol use: No Drug use: No Sexual activity: None Social History Social History Narrative Lives with her 3 younger children. Review of Systems Review of Systems Constitutional: Negative for chills and fever. HENT: Negative for ear pain and sore throat. Eyes: Negative for pain and visual disturbance. Respiratory: Negative for cough and shortness of breath. Cardiovascular: Negative for chest pain and palpitations. Gastrointestinal: Negative for abdominal pain and vomiting. Genitourinary: Negative for dysuria and hematuria. Musculoskeletal: Positive for back pain. Negative for arthralgias. Skin: Negative for color change and rash. Neurological: Negative for seizures and syncope. All other systems reviewed and are negative. Physical Exam ED Triage Vitals [05/12/22 1412] Temp Pulse Resp BP SpO2 37 ??C (98.6 ??F) 81 18 104/73 100 % Temp src Heart Rate Source Patient Position BP Location FiO2 (%) -- -- -- -- -- Height Height Method Weight Weight Method 1.549 m (5' 1 ) -- 54.4 kg (120 lb) -- Physical Exam Vitals and nursing note reviewed. Constitutional: General: She is not in acute distress. Appearance: She is well-developed. She is not ill-appearing, toxic-appearing or diaphoretic. HENT: Head: Normocephalic and atraumatic. Nose: Nose normal. Mouth/Throat: Mouth: Mucous membranes are moist. Eyes: Extraocular Movements: Extraocular movements intact. Conjunctiva/sclera: Conjunctivae normal. Pupils: Pupils are equal, round, and reactive to light. Cardiovascular: Rate and Rhythm: Normal rate and regular rhythm. Pulses: Normal pulses. Heart sounds: No murmur heard. No friction rub. No gallop. Pulmonary: Effort: Pulmonary effort is normal. No respiratory distress. Breath sounds: Normal breath sounds. No stridor. No wheezing, rhonchi or rales. Chest: Chest wall: No tenderness. Abdominal: General: Abdomen is flat. There is no distension. Palpations: Abdomen is soft. There is no mass. Tenderness: There is no abdominal tenderness. There is no right CVA tenderness, left CVA tenderness, guarding or rebound. Hernia: No hernia is present. Musculoskeletal: General: No swelling, tenderness, deformity or signs of injury. Cervical back: Normal range of motion and neck supple. Right lower leg: No edema. Left lower leg: No edema. Skin: General: Skin is warm and dry. Capillary Refill: Capillary refill takes less than 2 seconds. Neurological: General: No focal deficit present. Mental Status: She is alert. Psychiatric: Mood and Affect: Mood normal. Behavior: Behavior normal. Thought Content: Thought content normal. Judgment: Judgment normal. MDM Medical Decision Making Differential Diagnosis or Management Options: Differential diagnosis includes acute myofascial sprain, strain, acute fracture, left lower lumbar spine pain associated with sciatica, x-ray shows narrowing, between L5 and S1. Patient reports improvement at discharge. , patient discharged home to takethe pain medications, that she has been advised to by her physician, due to her decreased GFR. , patient discharged her with lidocaine patches, to utilize once per day. Also notified to follow up with PCP, rest, an use ice to the back. Patient verbalizes improvement, and agrees to follow-up, returnprecautions, including signs and symptoms of cauda equinus syndrome. ED Course as of 05/12/22 1297 Time: 05/12 1809 Value: XR Spine Lumbar 4 or More Views Comment: IMPRESSION: 1. Disc space narrowing at L5-S1. 2. Very mild dextroconvex curvature. THIS IS AN ELECTRONICALLY VERIFIED FINAL REPORT 05/12/2022 5:40 PM - Electronically signed by Stephy Christine D.O. AC: KERMIT Report ID: [id number] Reading Location: [id number] By: Issac Sheehan NP Time: 05/12 1809 Comment: Voice recognition software [employer]. Direct was used to dictate and transcribe this document. Masticator variances may occur. Despite proofreading, typographical errors may occur. By: Issac Sheehan NP Time: 05/12 1809 Comment: Discussed ED findings and plans for discharge with pt who understands and agrees with plan. Pt has been advised to return to the ED with any new or worsening symptoms. Pt has no further complaints. All questions addressed at this time. By: Issac Sheehan NP Time: 05/12 1810 Comment: Patient reports improvement in symptoms at discharge. By: Issac Sheehan NP Final diagnoses: Acute left-sided low back pain with left-sided sciatica Issac Sheehan NP 05/12/222136 Cosigned by Keron Diamond MD at 05/15/2022 7:34 AM NC MACHINIST MACHINIST MACHINIST * Carmen Escobar RN - 05/12/2022 2:10 PM CST Pt presents to ER with c/o left lower back pain that radiates to hip and leg. Pt states this pain started as she stood up straight while brushing her teeth today. MACHINIST documented in this encounter Plan of Treatment Not on file documented as of this encounter Procedures Procedure Name Priority Date/Time Associated Diagnosis Comments XR SPINE LUMBAR ROUTINE ED 05/12/2022 5:34 PM NC MACHINIST URINALYSIS AND REFLEX TO MICROSCOPIC AND CULTURE STAT 05/12/2022 2:22 PM NC MACHINIST documented in this encounter Results * XR Spine Lumbar 4 or More Views (05/12/2022 5:34 PM NC MACHINIST) Anatomical Region Laterality Modality L-spine N/A Computed Radiogr aphy 05/12/2022 5:38 PM NC MACHINIST Narrative 05/12/2022 5:40 PM NC MACHINIST EXAM DESCRIPTION: ?? XR SPINE LUMBAR 4 OR MORE VIEWS REASON FOR STUDY: ?? left lower back with radiation down left leg, sudden onset of pain, while leaning over to brush teeth ?? Table formatting from the original note was not included. ??left lower back pain that radiates to hip and leg. Pt states this pain started as she stood up straight while brushing her teeth today. ? TECHNIQUE: ?? 5 ??radiographic views acquired of the lumbar spine. COMPARISON: ?? CT June 07, 2020 FINDINGS: SEGMENTATION: ?? 5 [id number] lumbar type vertebral bodies. ALIGNMENT: ?? Mild dextroconvex curvature. VERTEBRAE: ?? Vertebral body heights are intact. ??No vertebral compression fracture. ??Pedicles are intact. ?No aggressive appearing osseous lesion. ??No spondylolysis or spondylolisthesis as visualized. DISCS: ?? Disc space narrowing at L5-S1. ??Remaining disc spaces are well preserved. OTHER: ?? No other significant finding. IMPRESSION: ??1. ??Disc space narrowing at L5-S1. ?? 2. ??Very mild dextroconvex curvature. THIS IS AN ELECTRONICALLY VERIFIED FINAL REPORT 05/12/2022 5:40 PM - Electronically signed by ??Stephy Christine D.O. AC: AC D: ??05/12/2022 5:40 PM T: ??05/12/2022 5:40 PM Report ID: [id number] Reading Location: ??[id number] Procedure Note Stephy Christine DO - 05/12/2022 EXAM DESCRIPTION: XR SPINE LUMBAR 4 OR MORE VIEWS REASON FOR STUDY: left lower back with radiation down left leg, suddenonset of pain, while leaning over to brush teeth Table formatting from the original note was not included. left lower back pain that radiates to hip and leg. Pt states this pain started as shestood up straight while brushing her teeth today. TECHNIQUE: 5 radiographic views acquired of the lumbar spine. COMPARISON: CT June 07, 2020 FINDINGS: SEGMENTATION: 5 [id number] lumbar type vertebral bodies. ALIGNMENT: Mild dextroconvex curvature. VERTEBRAE: Vertebral body heights are intact. No vertebral compression fracture. Pedicles are intact. No aggressive appearing osseous lesion.No spondylolysis or spondylolisthesis as visualized. DISCS: Disc space narrowing at L5-S1. Remaining disc spaces are well preserved. OTHER: No other significant finding. IMPRESSION: 1. Disc space narrowing at L5-S1. 2. Very mild dextroconvex curvature. THIS IS AN ELECTRONICALLY VERIFIED FINAL REPORT 05/12/2022 5:40 PM - Electronically signed by Stephy Christine D.O. AC: AC Report ID: [id number] Reading Location: [id number] Issac Sheehan NP IMG XR PROCEDURES Final Res ult * Urinalysis reflex to microscopic and culture Urine (05/12/2022 2:22 PM NC MACHINIST) Color, ur Yellow Yellow [facility] (AM[facility]) Clarity, ur Clear Clear [facility] (AM[facility]) Specific gravity, ur 1.010 1.003 - 1.030 [facility] ([facility]) pH, urine 6.5 [facility] ([facility]) Protein, ur ql Negative [...] culture not met. [facility] ([place]) Urine 05/12/2022 2:22 PM NC MACHINIST 05/12/2022 2:25 PM NC MACHINIST Narrative [facility] ([facility]) - 05/12/2022 2:30 PM NC MACHINIST ?? Urine pH is affected by diet, medications, systemic acid-base disturbances, and renal tubular function. ??pH may affect urinary stone formation. ??For example, urine pH below 6.0 may help reduce the tendency for calcium phosphate stones and pH greater than 6.0 may reduce the tendency for uric acid stone formation. Source: [employer]. Last revised 07-08-2017 us Galina Castelan MD LAB MICROBIOLOGY - GENERA L ORDERABLES Final Result JANIE LOYOLA (AMANUEL) [address] [facility] [place] [address] documented in this encounter Visit Diagnoses Diagnosis Acute left-sided low back pain with left-sided sciatica- Primary documented in this encounter Administered Medications Inactive Administered Medications - up to 3 most recent administrations Medication Order MAR Action Action Date Dose Rate Site ketorolac (TORADOL) 30 mg/mL (1 mL) injection 30 mg 30 mg, intramuscular, Once, On Wed05/12/22 at 1722, For 1 dose Given 05/12/2022 5:40 PM NC MACHINIST 30 mg Left Deltoid lidocaine (LIDODERM) 5 % patch 1 patch 1 patch, transdermal, Administer over 12 Hours, Daily, First dose on Wed05/12/22 at 1709, Do not cover the holes on the top side of the patch., Apply to affected area: other Medication Applied 05/12/2022 5:38 PM NC MACHINIST 1 patch Other (Comment) documented in this encounter Active and Recently Administered Medications Times are shown in NC MACHINIST. Scheduled Medication Order 05/10/2022 05/11/2022 05/12/2022 ketorolac (TORADOL) 30 mg/mL (1 mL) injection 30 mg (COMPLETED) 30 mg, intramuscular, Once, On Wed05/12/22 at 1722, For 1 dose 1740 (Given - Provid er: Rose Mary Cota RN) lidocaine (LIDODERM) 5 % patch 1 patch 1 patch, transdermal, Administer over 12 Hours, Daily, First dose on Wed05/12/22 at 1709, Do not cover the holes on the top side of the patch., Apply to affected area: other 1738 (Medication Mathew lied - Provider: Rose Mary Cota RN - Comment: left low back)1852 (Due: Medication Removed - Provider: Automatic Discharge Provider - Comment: Time automatically adjusted from order being discontinued) documented in this encounter Orders Medications Ordered That Diogenes ht Not Have Been Administered Count Last Ordered Date First Ordered Date ketorolac (TORADOL) 30 mg/mL (1 mL) injection 30 mg 1 05/12/2022 documented in this encounter Care Teams Level Vial Inspector Relationship Specialty Start Date End Date Eliseo Lambert MD PCP - General Family Medicine 05/21/20 06/29/23 documented as of this encounter
--- OUTSIDE RECORDS SUMMARY | 2024-06-25 09:51 | XMS_ITS | Encounter Summary ---
Author Organization [facility] Address [address] [place] [address] Care Team Providers Care Clinical Reviewer Name Role Phone Eliseo Lambert MD Primary Care Provider Reason for Visit * Reason Onset Date Comments Chest pain 05/11/2022 Encounter Details Date Type Department Care Team ([facility] st Contact Info) Description 05/11/2022 Telephone [facility] Primary Care at [address] [place] [address] Eliseo Lambert MD [address] [place] [address] [address] [place] [address] Chest pain Social History Tobacco Use Types Packs/Day Years [...] file Legal Sex Female 1:17 AM MEDICAL PARASITOLOGIST Gender Identity Not on file Sexual Orientation Not on file 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 Lambert, he is going to order stress test. I called Kristy and informed her that Dr. Lambert is working on getting this ordered and we will call her with the details once it is. She is able to do exercise stress test. CAL PARASITOLOGIST * Telephone Encounter - Rivka Santacruz MA - 05/12/2022 4:31 PM MEDICAL PARASITOLOGIST Vent Rate: 73 bpm RR Interval: 819 msec ND Interval: 166 msec QRS Duration: 78 msec QT Interval: 335 msec QTC Interval: 360 msec P-R-T [place]: 48 - 24 - 54 degrees SINUS RHYTHM NORMAL ECG Patient is calling asking next steps? CAL PARASITOLOGIST * Telephone Encounter - Rivka Santacruz MA - 05/11/2022 1:34 PM MEDICAL PARASITOLOGIST While on the phone with patient, she reports still having intermittent chest pain. Most recent was this morning. Next steps?? EKG completed 05/06 @ [facility]. CAL PARASITOLOGIST documented in this encounter Plan of Treatment Not on file documented as of this encounter Visit Diagnoses Not on filedocumented in this encounter Care Teams Clinical Reviewer Relationship Specialty Start Date End Date Eliseo Lambert MD PCP - General Family Medicine 05/21/20 06/29/23 documented as of this encounter
--- OUTSIDE RECORDS SUMMARY | 2024-06-25 09:52 | XMS_ITS | Encounter Summary ---
Author Organization [facility] Address [address] [place] [address] Care Team Providers Care Photographer Portrait Name Role Phone Eliseo Lambert MD Primary Care Provider Reason for Visit * Reason Comments Follow-up Encounter Details Date Type Department Care Team ([facility] Contact Info) Description 02/04/2022 3:15 PM CDT Office Visit [facility] Primary Care at [address] [place] [address] Eliseo Lambert MD [address] [place] [address] [address] [place], [place] [id number] Generalized anxiety disorder (Primary Dx); Pure hypercholesterolemia ; Moderate episode of recurrent major depressive disorder (HCC); Psychophysiological insomnia; Abnormal finding Social History Tobacco Use Types Packs/Day Years Used Date Smoking Tobacco: Every Day Cigarettes Smokeless Tobacco: Never Alcohol Use Standard Drinks/Week Comments No 0 (1 standard drink = 0.6 oz pur e alcohol) PHQ-2 Answer Date Recorded PHQ-2 Total Score (If total score is 3 or more points, staff should administer the PHQ-9) 0 02/04/2022 Comments No Sex and Gender Information Value Date Recorded Sex Assigned at Not on file Legal Sex Female 1:17 AM [employer] Gender Identity Not on file Sexual Orientation Not on file 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 Not on file Not on file documented as of this encounter Last Filed Vital Signs Vital Sign Reading Time Taken Comments Blood Pressure 109/76 02/04/2022 3:13 PM CDT Pulse 88 02/04/2022 3:13 PM CDT Temperature - - Respiratory Rate 12 02/04/2022 3:13 PM CDT Oxygen Saturation 96% 02/04/2022 3:13 PM CDT Inhaled Oxygen Concentration - - Weight 51.3 kg (113 lb 3.2 oz) 02/04/2022 3:13 P M CDT Height 156.2 cm (5' 1.5 ) 02/04/2022 3:13 PM CDT Body Mass Index 21.05 02/04/2022 3:13 PM CDT documented in this encounter Progress Notes * Eliseo Lambert MD - 02/04/2022 3:15 PM CDT Images from the original note were not included. Assessment/Plan Diagnoses and all orders for this visit: Generalized anxiety disorder (Primary) Assessment & Plan: - chronic history, controlled - follows with [...] Results Component Value Date TSH 3.24 06/02/2021 Pure hypercholesterolemia Assessment & Plan: - chronic, well controlled - most recent LDL as shown below - has been on Atorvastatin 20 mg since 06/17 - recheck Lipid panel before next visit - most recent LDL as shown below, result shown below - continue with current therapy Lab Results Component Value Date LDLCALC 74 09/26/2021 Moderate episode of recurrent major depressive disorder (HCC) Assessment & Plan: - chronic history, controlled - follows with [...] Results Component Value Date TSH 3.24 06/02/2021 Psychophysiological insomnia Assessment & Plan: - chronic, stable - trazodone 50 mg nightly PRN only - follows with psychiatry - Dr. 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 She has had this since she was about 14-15 years of age. She has had an EGD several years ago with no all significant abnormal findings and she has also tried [id number] medications including as reflux medication and has x without any resolution. Return in about 4 months (around 06/06/2022). Subjective/Objective Chief Complaint Patient presents with ??? Follow-up HPI Kristy Kapoor is a 46 y.o. female who is here for follow-up of chronic health conditions including anxiety, depression, insomnia as well as pure hypercholesterolemia. Patient has been compliant with her medications and most recent lipid panel shows very good control of her cholesterol. She also follows up with psychiatry and is compliant with her medications which is mainly the Wellbutrin as wellas the trazodone nightly basis as needed only. She has Klonopin for use as needed but does not use it frequently at all. She has recently left her old job and is going to be starting a new job towards the end of the months which she is excited about. She also from her boyfriend of 3 yearswhich has turned out to be a good thing for her so she can focus on herself and her well-being. Heranxiety depression are fairly well controlled at this time. She reports being unable to burp her own at times when she tries she ends up vomiting. She has had this since she was about 14-15 years of age. She has had an EGD several years ago with no all significant abnormal findings and she has alsotried [id number] medications including as reflux medication and has x without any resolution. PHQ9 - Depression Screening tool questionnaire Over the last 2 weeks, how often have you been bothered by any of the following problems? Little Interest or Pleasure in Doing Things: Not at all Feeling Down, Depressed, or Hopeless: Not at all PHQ-2 Total Score (If total score is 3 or more points, staff should administer the PHQ-9): 0 Over the past 2 weeks, how often have you been bothered by any of the following problems? Little Interest or Pleasure in Doing Things: Not at all Feeling Down, Depressed, or Hopeless: Not at all PHQ-2 Total Score (If total score is 3 or more points, staff should administer the PHQ-9): 0 Interpretation of PHQ9 Total Score 1-4 = Minimal depression 5-9 = Mild depression 10-14 = Moderate depression 15-19 = Moderately severe depression 20-27 = Severe depression Patient Care Team: Eliseo Lambert MD as PCP - General (Family Medicine) Labs: Lab Results Component Value Date CHOL 153 09/26/2021 TRIG 57 09/26/2021 HDL 68 09/26/2021 Lab Results Component Value Date LDLCALC 74 09/26/2021 Lab Results Component Value Date TSH 3.24 06/02/2021 Lab Results Component Value Date HGBA1C 5.3 03/27/2021 HGBA1C 5.3 05/30/2020 Review of Systems Constitutional: Negative for activity change, appetite change, fatigue and unexpected weight change. Respiratory: Negative for cough, choking, shortness of breath and wheezing. Cardiovascular: Negative for chest pain and palpitations. Gastrointestinal: Positive for abdominal pain (intermittnet, bit improvement), diarrhea (alternating) and nausea (intermittent). Negative for anal bleeding, blood in stool, constipation and vomiting. Genitourinary: Negative for difficulty urinating. Musculoskeletal: Negative for gait problem. Skin: Negative for rash and wound. Neurological: Negative for tremors, seizures, syncope and headaches. Psychiatric/Behavioral: Positive for dysphoric mood and sleep disturbance. Negative for agitation, behavioral problems, confusion, decreased concentration, hallucinations, self-injury and suicidal ideas. The patient is nervous/anxious. The patient is not hyperactive. Vitals: 02/04/22 1513 BP: 109/76 BP Location: Left arm Patient Position: Sitting Pulse: 88 Resp: 12 SpO2: 96% Weight: 51.3 kg (113 lb 3.2 oz) Height: 156.2 cm (5' 1.5 ) Wt Readings from Last 3 Encounters: 02/04/22 51.3 kg (113 lb 3.2 oz) 01/08/22 52.3 kg (115 lb 6.4 oz) 11/05/21 51.1 kg (112 lb 9.6 oz) Body mass index is 21.05 kg/m??. Physical Exam Vitals reviewed. Constitutional: General: She is not in acute distress. Appearance: Normal appearance. She is not ill-appearing, toxic-appearing or diaphoretic. HENT: Head: Normocephalic and atraumatic. Eyes: Extraocular Movements: Extraocular movements intact. Cardiovascular: Rate and Rhythm: Normal rate. Pulmonary: Effort: Pulmonary effort is normal. No respiratory distress. Breath sounds: No wheezing. Abdominal: General: Abdomen is flat. There is no distension. Palpations: Abdomen is soft. Tenderness: There is no abdominal tenderness. There is no guarding. Musculoskeletal: Right lower leg: No edema. Left lower leg: No edema. Skin: General: Skin is warm. Neurological: General: No focal deficit present. Mental Status: She is alert and oriented to person, place, and time. Mental status is at baseline. Gait: Gait normal. Psychiatric: Attention and Perception: Attention normal. She is attentive. She does not perceive auditory or visual hallucinations. Mood and Affect: Mood normal. Mood is not anxious, depressed or elated. Affect is not labile, blunt, flat, angry, tearful or inappropriate. Speech: She is communicative. Speech is not rapid and pressured, delayed, slurred or tangential. Behavior: Behavior normal. Behavior is not agitated, slowed, aggressive, withdrawn, hyperactive or combative. Behavior is cooperative. Thought Content: Thought content normal. Thought content is not paranoid or delusional. Thought content does not include homicidal or suicidal ideation. Thought content does not include homicidal or suicidal plan. Cognition and Memory: Cognition is not impaired. Memory is not impaired. She does not exhibit impaired recent memory or impaired remote memory. Judgment: Judgment normal. Judgment is not impulsive or inappropriate. Eliseo Lambert MD February 11, 2022 5:47 AM Please note: Voice recognition software [employer] was used dictate and transcribe this document. Strategic Planning Manager variances may occur. Despite proofreading, typographical errors may occur. 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 She has had this since she was about 14-15 years of age. She has had an EGD several years ago with no all significant abnormal findings and she has also tried [id number] medications including as reflux medication and has x without any resolution. * Assessment & Plan Note - Eliseo Lambert MD - 02/11/2022 5:42 AM CDT Associated Problem(s): Psychophysiological insomnia - chronic, stable - trazodone 50 mg nightly PRN only - follows with psychiatry - Dr. Hill - continue with current medication * Assessment & Plan Note - Eliseo Lambert MD - 02/11/2022 5:41 AM CDT Associated Problem(s): Generalized anxiety disorder - chronic history, controlled - follows with [...] Results Component Value Date TSH 3.24 06/02/2021 * Assessment & Plan Note - Eliseo Lambert MD - 02/11/2022 5:40 AM CDT Associated Problem(s): Moderate episode of recurrent major depressive disorder (HCC) - chronic history, controlled - follows with [...] Results Component Value Date TSH 3.24 06/02/2021 * Assessment & Plan Note - Eliseo Lambert MD - 02/11/2022 5:40 AM CDT Associated Problem(s): Pure hypercholesterolemia - chronic, well controlled - most recent LDL as shown below - has been on Atorvastatin 20 mg since 06/17 - recheck Lipid panel before next visit - most recent LDL as shown below, result shown below - continue with current therapy Lab Results Component Value Date LDLCALC 74 09/26/2021 documented in this encounter Plan of Treatment Not on file documented as of this encounter Visit Diagnoses Diagnosis Generalized anxiety disorder- Primary Pure hypercholesterolemia Moderate episode of recurrent major depressive disorder (HCC) Psychophysiological insomnia Persistent disorder of initiating or maintaining sleep Abnormal finding Other nonspecific abnormal finding documented in this encounter Care Teams Photographer Portrait Relationship Specialty Start Date End Date Eliseo Lambert MD PCP - General Family Medicine 05/21/20 06/29/23 documented as of this encounter
--- OUTSIDE RECORDS SUMMARY | 2024-06-25 09:52 | XMS_ITS | Encounter Summary ---
Author Organization [facility] Address [address] [place] [address] Care Team Providers Care Progressive Care Manager Name Role Phone Eliseo Lambert MD Primary Care Provider Reason for Referral * Cardiology (Routine) - Closed Specialty Diagnoses / Procedures Referred By Contac t Referred To Contact Diagnoses Chest pain, unspecified type Procedures ECG 12 lead Eliseo Lambert MD Phone: tel: fax: [address] [phone] Referral ID Status Reason Start Date Expiration Date Visits Re quested Visits Authorized [id number] Closed 05/05/2022 06/04/2023 1 1 GER PUBLIC Reason for Visit * Reason Comments Hyperlipidemia Patient not sure as to why she is here today, when looking at last ov note says to return in 4 mo (May) and this appt was scheduled... psych is followed by Liz. Encounter Details Date Type Department Care Team (Late st Contact Info) Description 05/05/2022 2:30 PM MANAGER PUBLIC Office Visit [facility] at [address] [place] [address] Eliseo Lambert MD [address] [place] [address] [address] CHUCKY Gar[address] [place] [address] Chest pain, unspecified type (Primary Dx); Gastroesophageal reflux disease, unspecified whether esophagitis present; PTSD (post-traumatic stress disorder); Pure hypercholesterolemia ; Generalized anxiety disorder; Vitamin D deficiency Social History Tobacco Use Types Packs/Day Years Used Date Smoking Tobacco: Every Day Cigarettes Smokeless Tobacco: Never Tobacco Cessation:Ready to Q uit: No; Counseling Given: Yes Alcohol Use Standard Drinks/Week Comments No 0 (1 standard drink = 0.6 oz pur e alcohol) PHQ-2 Answer Date Recorded PHQ-2 Total Score (If total score is 3 or more points, staff should administer the PHQ-9) 0 05/05/2022 Comments No Sex and Gender Information Value Date Recorded Sex Assigned at Not on file Legal Sex Female 1:17 AM MANAGER PUBLIC Gender Identity Not on file Sexual Orientation Not on file 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 Not on file Not on file documented as of this encounter Last Filed Vital Signs Vital Sign Reading Time Taken Comments Blood Pressure 92/67 05/05/2022 2:39 PM MANAGER PUBLIC Pulse 92 05/05/2022 2:39 PM MANAGER PUBLIC Temperature - - Respiratory Rate 16 05/05/2022 2:39 PM MANAGER PUBLIC Oxygen Saturation - - Inhaled Oxygen Concentration - - Weight 54.9 kg (121 lb) 05/05/2022 2:39 PM MANAGER PUBLIC Height 156.2 cm (5' 1.5 ) 05/05/2022 2:39 PM MANAGER PUBLIC Body Mass Index 22.5 05/05/2022 2:39 PM MANAGER PUBLIC documented in this encounter Progress Notes * Eliseo Lambert MD - 05/05/2022 2:30 PM CST Images from the original note were not included. Assessment/Plan Diagnoses and all orders for this visit: Chest pain, unspecified type (Primary) Assessment & Plan: - new diagnosis - reports dull pain [...] Rate: 73 bpm RR Interval: 819 msec ID Interval: 166 msec QRS Duration: 78 msec QT Interval: 335 msec QTC Interval: 360 msec P-R-T [place]: 48 - 24 - 54 degrees SINUS RHYTHM NORMAL ECG - will proceed with exercises stress test, order placed Orders: - ECG 12 lead; Future - Stress Treadmill Test; Future Gastroesophageal reflux disease, unspecified whether esophagitis present Assessment & Plan: - chronic, controlled - currently on Pantoprazole [...] clothing that puts pressure on the stomach. PTSD (post-traumatic stress disorder) Assessment & Plan: - chronic, controlled - following with psychiatry - currently on clonazepam and wellbutrin at this time - she has tried other medications without good outcomes - continue current management Pure hypercholesterolemia Assessment & Plan: - chronic, controlled - worse, increase noted [...] LDLCALC 74 09/26/2021 LDLCALC 173 (H) 01/06/2021 Orders: - Lipid panel; Future Generalized anxiety disorder Assessment & Plan: - chronic history, controlled - follows with psychiatry, Dr. Hill - anxiety is controlled - depression is controlled - currently on wellbutrin XL 300 mg daily ,trazodone 50 mg nightly PRN - has coexisting anxiety - she has Tried Lexparo, Citalopram, Sertraline, in the past - continue current management Lab Results Component Value Date TSH 3.21 05/06/2022 Orders: - CBC with auto differential; Future - Comprehensive metabolic panel; Future - TSH reflex to free T4; Future Vitamin D deficiency - Vitamin D 25 hydroxy; Future Return in about 6 months (around 11/02/2022). Subjective/Objective Chief Complaint Patient presents with Hyperlipidemia Patient not sure as to why she is here today, when looking at last ov note says to return in 4 mo (May) and this appt was scheduled... psych is followed by Hill. Hyperlipidemia Associated symptoms include chest pain (not active). Pertinent negatives include no shortness of breath. Kristy Kapoor is a 46 y.o. female who is here for follow-up of chronic health conditions including anxiety, depression, insomnia as well as pure hypercholesterolemia. Patient recently changed her jobs and is currently working 312 hour shifts. She has heartburn that is well controlled although she does get intermittent breakthrough acid reflux for which she takes zxze-dck-[id number] medication. She follows up with psychiatry in her mental health is also controlled with medication use. She has been compliant with the use of her cholesterol medication which shows significant improvement on last testing and is due for recheck. Unfortunate patient states she has been having intermittent chest pain for the past 3 years off andon that she describes as dull and radiates to the left shoulder. This is not associated with any shortness of breath, nausea or vomiting may last for up to 30 minutes and is not associated with activity as it can also happen at rest. She noticed more with anxiety as well. She does have a family history of her dad who had coronary artery disease and had stent placement. She does have known pure hypercholesterolemia who she is on a cholesterol-lowering medication and also has history of smoking. Patient Care Team: Eliseo Lambert MD as [...] choking, shortness of breath and wheezing. Cardiovascular: Positive for chest pain (not active). Negative for palpitations. Gastrointestinal: Positive for abdominal pain (intermittnet, [...] nervous/anxious. The patient is not hyperactive. Vitals: 05/05/22 1439 BP: 92/67 BP Location: Left arm Patient Position: Sitting Pulse: 92 Resp: 16 Weight: 54.9 kg (121 lb) Height: 156.2 cm (5' 1.5 ) Wt Readings from Last 3 Encounters: 05/12/22 54.4 kg (120 lb) 05/05/22 54.9 kg (121 lb) 03/23/22 53.8 kg (118 lb 9.6 oz) Body mass index is 22.5 kg/m??. Physical Exam Vitals reviewed. Constitutional: General: [...] not impulsive or inappropriate. Eliseo Lambert MD May 18, 2022 12:44 AM Please note: Voice recognition software [employer] Direct was used dictate and transcribe this document. Court Worker variances may occur. Despite proofreading, typographical errors may occur. GER PUBLIC documented in this encounter Miscellaneous Notes * Assessment & Plan Note - Eliseo Labmert MD - 05/18/2022 12:38 AM MANAGER PUBLIC Associated Problem(s): Chest pain (Resolved 03/15/2023) - new diagnosis - reports dull pain [...] Rate: 73 bpm RR Interval: 819 msec ID Interval: 166 msec QRS Duration: 78 msec QT Interval: 335 msec QTC Interval: 360 msec P-R-T [place]: 48 - 24 - 54 degrees SINUS RHYTHM NORMAL ECG - will proceed with exercises stress test, order placed GER PUBLIC GER PUBLIC * Assessment & Plan Note - Eliseo Lambert MD - 05/18/2022 12:37 AM MANAGER PUBLIC Associated Problem(s): Gastroesophageal reflux disease - chronic, controlled - currently on Pantoprazole [...] clothing that puts pressure on the stomach. GER PUBLIC * Assessment & Plan Note - Eliseo Lambert MD - 05/18/2022 12:36 AM MANAGER PUBLIC Associated Problem(s): PTSD (post-traumatic stress disorder) - chronic, controlled - following with psychiatry - currently on clonazepam and wellbutrin at this time - she has tried other medications without good outcomes - continue current management GER PUBLIC GER PUBLIC * Assessment & Plan Note - Eliseo Lambert MD - 05/18/2022 12:36 AM MANAGER PUBLIC Associated Problem(s): Generalized anxiety disorder - chronic history, controlled - follows with psychiatry, Dr. Hill - anxiety is controlled - depression is controlled - currently on wellbutrin XL 300 mg daily ,trazodone 50 mg nightly PRN - has coexisting anxiety - she has Tried Lexparo, Citalopram, Sertraline, in the past - continue current management Lab Results Component Value Date TSH 3.21 05/06/2022 GER PUBLIC GER PUBLIC * Assessment & Plan Note - Eliseo Lambert MD - 05/18/2022 12:35 AM MANAGER PUBLIC Associated Problem(s): Pure hypercholesterolemia - chronic, controlled - worse, increase noted [...] LDLCALC 74 09/26/2021 LDLCALC 173 (H) 01/06/2021 GER PUBLIC GER PUBLIC documented in this encounter Plan of Treatment Not on file documented as of this encounter Results * ECG 12 lead (05/06/2022 1:13 PM MANAGER PUBLIC) 05/06/2022 1:08 PM MANAGER PUBLIC Narrative [facility] - 05/06/2022 2:17 PM MANAGER PUBLIC Vent Rate: 73 bpm RR Interval: 819 msec ID Interval: 166 msec QRS Duration: 78 msec QT Interval: 335 msec QTC Interval: 360 msec P-R-T [place]: 48 - 24 - 54 degrees SINUS RHYTHM NORMAL ECG Electronically Signed By: Jb Bowser MD Eliseo Lambert MD ECG ORDERABLES Final R esult [facility] Only [employer] [facility] * Vitamin D 25 hydroxy (05/06/2022 12:56 PM MANAGER PUBLIC) Vitamin D 25-OH 80 30 - 80 ng/mL [facility] ([place]) Blood 05/06/2022 12:5 6 PM MANAGER PUBLIC 05/06/2022 3:33 PM MANAGER PUBLIC us Eliseo Lambert MD LAB BLOOD ORDERABLES Fi nal Result [facility] ([place]) [address] [facility] Department [place] [address] * TSH reflex to free T4 (05/06/2022 12:56 PM MANAGER PUBLIC) TSH 3.21 0.30 - 4.20 mcIUnit/mL [facility] ([place]) Blood 05/06/2022 12:5 6 PM MANAGER PUBLIC 05/06/2022 3:33 PM MANAGER PUBLIC Eliseo Lambert MD LAB BLOOD ORDERABLES Fi nal Result [facility] ([place]) [address] [facility] Department [place] [address] * Lipid panel (05/06/2022 12:56 PM MANAGER PUBLIC) Cholesterol 199 30 - 199 mg/dL [facility] ([place]) Comment: Interpretive Data Ages < or = 19 years ??Acceptable: ? <170 mg/dL ??Borderline high: ??170-199 mg/dL ??High: ? >or= 200 mg/dL Ages > or = 20 years ??Desirable: ?<200 mg/dL ??Borderline high: ??200-239 mg/dL ??High: ? >or= 240 mg/dL Literature References: 1. Expert Panel on Integrated Guidelines for Cardiovascular Health and Risk Reduction in Children and Adolescents. Pediatrics 2011;128:S213 2. NCEP Expert Panel. Circulation 2004;110:227 Current Interpretive Data was last revised on 2018. Triglycerides 89 <=149 mg/dL [facility] ([place]) Comment: Interpretive Data Ages < or = 9 years ??Acceptable: ? <75 mg/dL ??Borderline high: ??75-99 mg/dL ??High: ? >or= 100 mg/dL Ages 10 to 20 years ??Acceptable: ? <90 mg/dL ??Borderline high: ??90-129 mg/dL ??High: ? >or= 130 mg/dL Ages > or = 20 years ??Desirable: ?<150 mg/dL ??Borderline high: ??150-199 mg/dL ??High: ? 200-499 mg/dL ?Very high: ?? >or= 499 mg/dL Literature References: 1. Expert Panel on Integrated Guidelines for Cardiovascular Health and Risk Reduction in Children and Adolescents. Pediatrics 2011;128:S213 2. NCEP Expert Panel. Circulation 2004;110:227 Current Interpretive Data was last revised on 2018. HDL 71 >=40 mg/dL [facility] ([place]) Comment: Interpretive Data Ages < or = 19 years ??Acceptable: ? >45 mg/dL ??Borderline low: ?? 40-45 mg/dL ??Low: ? <40 mg/dL Ages > or = 20 years ??Desirable: ?>or= 60 mg/dL ??Low: ? <40 mg/dL Literature References: 1. Expert Panel on Integrated Guidelines for Cardiovascular Health and Risk Reduction in Children and Adolescents. Pediatrics 2011;128:S213 2. NCEP Expert Panel. Circulation 2004;110:227 Current Interpretive Data was last revised on 2018. LDL, calculated 110 <=129 mg/dL [facility] ([place]) Comment: Interpretive Data Ages < or = 19 years ??Acceptable: ? <110 mg/dL ??Borderline high: ??110-129 mg/dL ??High: ?>or= 130 mg/dL Ages > or = 20 years ??Optimal: ? <100 mg/dL ??Near optimal: ?100-129 mg/dL ??Borderline high: ?? 130-159 mg/dL ??High: ?>160 mg/dL Literature References: 1. Expert Panel on Integrated Guidelines for Cardiovascular Health and Risk Reduction in Children and Adolescents. Pediatrics 2011;128:S213 2. NCEP Expert Panel. Circulation 2004;110:227 Current Interpretive Data was last revised on 2018. Non-HDL Cholesterol 128 mg/dL [facility] ([place]) Comment: Interpretive Data Ages < or = 19 years ??Acceptable: ?<120 mg/dL ??Borderline high: ??120-144 mg/dL ??High: ?>145 mg/dL Ages > or = 20 years ??When triglycerides are >200 mg/dL, Non-HDL cholesterol is a secondary target of ? therapy with treatment goals that are 30 mg/dL greater than the LDL cholesterol target. ? Literature References: 1. Expert Panel on Integrated Guidelines for Cardiovascular Health and Risk Reduction in Children and Adolescents. Pediatrics 2011;128:S213 2. NCEP Expert Panel. Circulation 2004;110:227 Current Interpretive Data was last revised on 2018. Chol/HDL ratio 3 [facility] ([place]) Blood 05/06/2022 12:5 6 PM MANAGER PUBLIC 05/06/2022 3:33 PM MANAGER PUBLIC us Eliseo Lambert MD LAB BLOOD ORDERABLES Fi nal Result [facility] ([place]) [address] [facility] Department of Laboratories [place], [place] [id number] * Comprehensive metabolic panel (05/06/2022 12:56 PM MANAGER PUBLIC) Sodium 141 135 - 145 mmol/L [facility] ([place]) Potassium, pl 4.2 3.3 - 4.9 mmol/L [facility] ([place]) Chloride 100 97 - 110 mmol/L [facility] ([place]) CO2 31 22 - 32 mmol/L [facility] ([place]) Anion gap 10 2 - 15 mmol/L [facility] ([place]) BUN 13 8 - 25 mg/dL [facility] ([place]) Creatinine 0.91 0.60 - 1.10 mg/dL [facility] ([place]) Glucose 77 70 - 199 mg/dL [facility] ([place]) [...] classification and Diagnosis of Diabetes Diabetes Care 2017;40 (Suppl. 1):S11. Current interpretive data was last revised 2017. Calcium 10.2 8.5 - 10.3 mg/dL [facility] ([place]) Bilirubin, total 0.4 0.1 - 1.2 mg/dL [facility] ([place]) Protein, pl 7.9 6.5 - 8.5 g/dL [facility] ([place]) Albumin 4.9 3.5 - 5.0 g/dL [facility] ([place]) Alk phos 84 40 - 130 Units/L [facility] ([place]) ALT 22 7 - 45 Units/L [facility] ([place]) AST 22 10 - 45 Units/L [facility] ([place]) Blood 05/06/2022 12:5 6 PM MANAGER PUBLIC 05/06/2022 3:33 PM MANAGER PUBLIC us Eliseo Lambert MD LAB BLOOD ORDERABLES Fi nal Result [facility] ([place]) [address] [facility] Department [place] [address] * (ABNORMAL) CBC with auto differential (05/06/2022 12:56 PM MANAGER PUBLIC) WBC 6.8 3.8 - 9.9 K/cumm [facility] ([place]) Hgb 13.0 11.9 - 15.5 g/dL [facility] ([place]) Hct 38.8 35.6 - 45.5 % [facility] ([place]) Plt 267 150 - 400 K/cumm [facility] ([place]) MPV 10.5 9.1 - 12.3 fL [facility] ([place]) RBC 3.97 3.90 - 5.20 M/cumm [facility] ([place]) MCV 97.7(H) 81.3 - 96.4 fL [facility] ([place]) MCH 32.7 27.1 - 33.3 pg [facility] ([place]) MCHC 33.5 32.3 - 35.7 g/dL [facility] ([place]) RDW CV 12.5 11.1 - 14.9 % [facility] ([place]) RDW SD 44.9 35.7 - 48.1 fL [facility] ([place]) NRBC abs 0.00 0.00 - 0.01 K/cumm [facility] ([place]) Blood 05/06/2022 12:5 6 PM MANAGER PUBLIC 05/06/2022 3:33 PM MANAGER PUBLIC us Eliseo Lambert MD LAB BLOOD ORDERABLES nal Result [facility] ([place]) [address] [facility] Department [place] [address] documented in this encounter Visit Diagnoses Diagnosis Chest pain, unspecified type- Primary Gastroesophageal reflux disease, unspecified whether esophagitis present PTSD (post-traumatic stress disorder) Posttraumatic stress disorder Pure hypercholesterolemia Generalized anxiety disorder Vitamin D deficiency Chest pain, unspecified type documented in this encounter Discontinued Medications Medication Sig Discontinue Reason Start Date End Da te clonazePAM (KlonoPIN) 0.5 mg tablet 0.5 mg 2 (two) times a day NEEDED 02/06/2020 05/05/2022 documented as of this encounter Historical Medications * This list may reflect changes made after this encounter. Medication Sig Dispense Quantity Refills Last Filled Start D ate End Date traZODone (DESYREL) 50 mg tablet 04/22/2022 12/02/2022 added in this encounter Care Teams Progressive Care Manager Relationship Specialty Start Date End Date Eliseo Lambert MD PCP - General Family Medicine 05/21/20 06/29/23 documented as of this encounter
--- OUTSIDE RECORDS SUMMARY | 2024-06-25 09:52 | XMS_ITS | Encounter Summary ---
Author Organization [facility] Address [address] [place] [address] Care Team Providers Care Surveillance Systems Analyst Name Role Phone Eliseo Lambert MD Primary Care Provider Reason for Visit * Reason Comments COVID-19 EVALUATION [facility]- Vomiting, Loss of Appetite, abdominal pain (stabbing pain) since 10/30/21 . Sick to her stomach since middle of September. Onset 10/30/21. OTC Tums, Rolaids. No exp, Not Vaccinated, Covid Hx 01/2021. Encounter Details Date Type Department Care Team (Late st Contact Info) Description 11/03/2021 4:00 PM CDT Office Visit [facility] [address] [place] [address] Nayla Harris, MEDICAL SERVICES ASSISTANT [address] [facility] [address] [place] [address] Gastroesophageal reflux disease, unspecified whether esophagitis present (Primary Dx); Nausea Social History Tobacco Use Types Packs/Day Years Used Date Smoking Tobacco: Every Day Cigarettes Smokeless Tobacco: Never Tobacco Cessation:Ready to Q uit: No; Counseling Given: Yes Alcohol Use Standard Drinks/Week Comments No 0 (1 standard drink = 0.6 oz pur e alcohol) PHQ-2 Answer Date Recorded PHQ-2 Total Score (If total score is 3 or more points, staff should administer the PHQ-9) 6 07/14/2021 Comments No Sex and Gender Information Value Date Recorded Sex Assigned at Not on file 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 Gender Identity Not on file Sexual Orientation Not on file 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 Not on file Not on file documented as of this encounter Last Filed Vital Signs Vital Sign Reading Time Taken Comments Blood Pressure 104/84 11/03/2021 3:56 PM CDT Pulse 93 11/03/2021 3:56 PM CDT Temperature 36.9 ??C (98.4 ??F) 11/03/2021 3:56 PM CD T Respiratory Rate 18 11/03/2021 3:56 PM CDT Oxygen Saturation 98% 11/03/2021 3:56 PM CDT Inhaled Oxygen Concentration - - Weight 51.8 kg (114 lb 3.2 oz) 11/03/2021 3:56 P M CDT Height 156.2 cm (5' 1.5 ) 11/03/2021 3:56 PM CDT Body Mass Index 21.23 11/03/2021 3:56 PM CDT documented in this encounter Patient Instructions * Patient Instructions* Nayla Harris MEDICAL SERVICES ASSISTANT - 11/03/2021 4:00 PM CDT Images from the original note were not included. Take zofran as needed for nausea BRAT diet - bananas, rice, applesauce, toast Start omeprazole daily Avoid acidic foods/drinks Avoid eating/drinking two hours prior to bed Keep appointment with Dr Lambert If you develop a fever, worsening abdominal pain or you are unable to keep liquid/food down, you need to go to the ER Patient Education Gastroesophageal Reflux Disease CATTLE PRODUCERS: Gastroesophageal reflux reflux occurs when acid and food in the stomach back up into the esophagus.Gastroesophageal reflux disease (GERD) is reflux that occurs more than twice a week for a few weeks. It usually causes heartburn and other symptoms. GERD can cause other health problems over time if it is not treated. Common symptoms include: Heartburn is the most common symptom of GERD. You may feel burning pain inyour chest or below the breast bone. This usually occurs after meals and spreads to your neck, jaw,or shoulder. The pain gets better when you change positions. You may also have any of the following: ?? Bitter or acid taste in your mouth ?? Dry cough ?? Trouble swallowing or pain with swallowing ?? Hoarseness or sore throat ?? Frequent burping or hiccups ?? Feeling of fullness soon after you start eating Seek care immediately if: ?? You feel full and cannot burp or vomit. ?? You have severe chest pain and sudden trouble breathing. ?? Your bowel movements are black, bloody, or tarry-looking. ?? Your vomit looks like coffee grounds or has blood in it. Contact your healthcare provider if: ?? You vomit large amounts, or you vomit often. ?? You have trouble breathing after you vomit. ?? You have trouble swallowing, or pain with swallowing. ?? You are losing weight without trying. ?? Your symptoms get worse or do not improve with treatment. ?? You have questions or concerns about your condition or care. Treatment for GERD: Your healthcare provider may prescribe medicine to decrease stomach acid. He may also prescribe medicine that help your esophagus and stomach move food and liquid to your intestines. Surgery may be done if other treatments do not work. You may need surgery to wrap the upper partof the stomach around the esophageal sphincter. This will strengthen the sphincter and prevent reflux. Manage GERD: ?? Do not have foods or drinks that may increase heartburn. These include chocolate, peppermint, fried or fatty foods, drinks that contain caffeine, or carbonated drinks (soda). Other foods include spicy foods, onions, tomatoes, and tomato-based foods. Do not have foods or drinks that can irritate your esophagus, such as citrus fruits, juices, and alcohol. ?? Do not eat large meals. When you eat a lot of food at one time, your stomach needs more acid to digest it. Eat 6 small meals each day instead of 3 large ones, and eat slowly. Do not eat meals 2 to3 hours before bedtime. ?? Elevate the head of your bed. Place 6-inch blocks under the head of your bed frame. You may alsouse more than one pillow under your head and shoulders while you sleep. ?? Maintain a healthy weight. If you are overweight, weight loss may help relieve symptoms of GERD. ?? Do not smoke. Smoking weakens the lower esophageal sphincter and increases the risk of GERD. Askyour healthcare provider for information if you currently smoke and need help to quit. E-cigarettesor smokeless tobacco still contain nicotine. Talk to your healthcare provider before you use these products. ?? Do not wear clothing that is tight around your waist. Tight clothing can put pressure on your stomach and cause or worsen GERD symptoms. Follow up with your healthcare provider as directed: Write down your questions so you remember to ask them during your visits. ?? 2017 [employer] Information is for End User's use only and may not be sold, redistributed or otherwise used for commercial purposes. All illustrations and images included in CareNotes?? are the copyrighted property of [employer]. or [employer]. The above information is an behavioral health aide only. It is not intended as medical advice for individual conditions or treatments. Talk to your doctor, nurse or pharmacist before following any medical regimen to see if it is safe and effective for you. documented in this encounter Ordered Prescriptions Prescription Sig Dispense Quantity Refills Last Filled Start Date End Date ondansetron ODT (ZOFRAN-ODT) 4 mg disintegrating tablet Take 1 tablet (4 mg total) by mouth every 8 (eight) hours as needed for nausea or vomiting 20 tablet 11/03/2021 documented in this encounter Progress Notes * Nayla Harris NP - 11/03/2021 4:00 PM CDT Images from the original note were not included. Subjective/Objective Patient ID: Kristy Kapoor is a 46 y.o. female. Chief Complaint COVID-19 EVALUATION ([facility]- Vomiting, Loss of Appetite, abdominal pain (stabbing pain) since 10/30/21 .Sick to her stomach since middle of September. Onset 10/30/21. OTC Tums, Rolaids. No exp, Not Vaccinated,Covid Hx 01/2021. ) Patient presents with abdominal pain that started over a month ago. It worsened last . She reports a stabbing pain. She is no longer having the stabbing pain. She also felt some reflux over the weekend. She does not drink alcohol Review of Systems Constitutional: Negative for chills, fatigue and fever. Gastrointestinal: Positive for abdominal pain and nausea. Negative for diarrhea and vomiting. Physical Exam Constitutional: Appearance: Normal appearance. She is normal weight. HENT: Right Ear: Tympanic membrane, ear canal and external ear normal. Left Ear: Tympanic membrane, ear canal and external ear normal. Nose: Nose normal. Mouth/Throat: Mouth: Mucous membranes are moist. Eyes: Conjunctiva/sclera: Conjunctivae normal. Cardiovascular: Rate and Rhythm: Normal rate and regular rhythm. Heart sounds: Normal heart sounds. Pulmonary: Effort: Pulmonary effort is normal. Breath sounds: Normal breath sounds. Abdominal: General: Abdomen is flat. Bowel sounds are normal. Palpations: Abdomen is soft. Tenderness: There is abdominal tenderness in the right upper quadrant and epigastric area. There isno right CVA tenderness, left CVA tenderness, guarding or rebound. Musculoskeletal: General: Normal range of motion. Cervical back: Normal range of motion and neck supple. Skin: General: Skin is warm and dry. Neurological: Mental Status: She is alert. Psychiatric: Mood and Affect: Mood normal. Behavior: Behavior normal. Vitals: 11/03/21 1556 BP: 104/84 BP Location: Left arm Patient Position: Sitting Pulse: 93 Resp: 18 Temp: 36.9 ??C (98.4 ??F) TempSrc: Oral SpO2: 98% Weight: 51.8 kg (114 lb 3.2 oz) Height: 156.2 cm (5' 1.5 ) No results found for this or any previous visit (from the past 24 hour(s)). Assessment/Plan Take zofran as needed for nausea BRAT diet - bananas, rice, applesauce, toast Start omeprazole daily Avoid acidic foods/drinks Avoid eating/drinking two hours prior to bed Keep appointment with Dr Lambert If you develop a fever, worsening abdominal pain or you are unable to keep liquid/food down, you need to go to the ER Diagnoses and all orders for this visit: Gastroesophageal reflux disease, unspecified whether esophagitis present (Primary) Nausea Other orders - ondansetron ODT (ZOFRAN-ODT) 4 mg disintegrating tablet; Take 1 tablet (4 mg total) by mouth every 8 (eight) hours as needed for nausea or vomiting Disposition- Discussed medications dosages, usage & potential side effects. Risks and interactions reviewed with patient. Indications for testing reviewed. Patient has been instructed to follow up w PCP or go to ER for any signs or symptoms that are of concern or worsening. Patient verbalizes understanding. The patient was given the opportunity to ask all questions and to have all questions answered. Patient is in agreement with the plan of care Nayla Harris NP documented in this encounter Plan of Treatment Not on file documented as of this encounter Visit Diagnoses Diagnosis Gastroesophageal reflux disease, unspecified whether esophagitis present- Primary Nausea Nausea alone documented in this encounter Discontinued Medications Medication Sig Discontinue Reason Start Date End Da te ondansetron ODT (ZOFRAN-ODT) 4 mg disintegrating tabletIndications:Nausea Take 1 tablet (4 mg total) by mouth every 8 (eight) hours as needed for nausea or vomiting 01/06/2021 11/03/2021 documented as of this encounter Care Teams Surveillance Systems Analyst Relationship Specialty Start Date End Date Eliseo Lambert MD PCP - General Family Medicine 05/21/20 06/29/23 documented as of this encounter
--- OUTSIDE RECORDS SUMMARY | 2024-06-25 09:52 | XMS_ITS | Encounter Summary ---
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
--- OUTSIDE RECORDS SUMMARY | 2024-06-25 09:52 | XMS_ITS | Encounter Summary ---
Author Organization [facility] Address [address] [place] [address] Care Team Providers Care Trolley Car Operator Name Role Phone Eliseo Lambert MD Primary Care Provider Encounter Details Date Type Department Care Team (Latest Contact Info) Description 06/02/2021 9:52 AM DIESEL POWERPLANT SUPERVISOR - 06/02/2021 11:59 PM DIESEL POWERPLANT SUPERVISOR Hospital Encounter [address] [facility] [address] [place] [address] Eliseo Lambert MD [address] [place] [address] [address] LOCKE A [address] [address] Pure hypercholesterolemi a; Vitamin D deficiency; Major depressive disorder with single episode, in partial remission (HCC) Discharge Disposition: Discharge to home or self care Social History Tobacco Use Types Packs/Day Years Used Date Smoking Tobacco: Every Day Cigarettes Smokeless Tobacco: Never Alcohol Use Standard Drinks/Week Comments No 0 (1 standard drink = 0.6 oz pur e alcohol) PHQ-2 Answer Date Recorded PHQ-2 Total Score (If total score is 3 or more points, staff should administer the PHQ-9) 6 06/02/2021 Comments No Sex and Gender Information Value Date Recorded Sex Assigned at Not on file Legal Sex Female 1:17 AM DIESEL POWERPLANT SUPERVISOR Gender Identity Not on file Sexual Orientation Not on file 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 100 each 1 09/19/19 21 buPROPion XL (WELLBUTRIN XL) 300 mg 24 hr tablet Take 1 tablet (300 mg total) by mouth every morning 04/12/20 OneTouch Verio Flex meter misc 09/20/19 21 atorvastatin (LIPITOR) 20 mg tabletIndications:Pure hypercholesterolemia Take 1 tablet (20 mg total) by mouth daily 90 tablet 03/27/20 21 022 cholecalciferol (VITAMIN D-3) 2000 unit tabletIndications:Vitami n D Deficiency Take 1 tablet (2,000 Units total) by mouth daily Pleas take after finishing 12 weeks of high dose vitamin D (50,000 units/week) therapy 180 tablet 3 09/21/19 21 022 clonazePAM (KlonoPIN) 0.5 mg tablet 0.5 mg 2 (two) times a day NEEDED 02/06/20 20 022 cyclobenzaprine (FLEXERIL) 10 mg tabletIndications:Muscle Spasm Take 1 tablet (10 mg total) by mouth 2 (two) times a day as needed for muscle spasms 30 tablet 11/16/19 21 023 famotidine (PEPCID) 40 mg tabletIndications:Heartb urn Take 1 tablet (40 mg total) by mouth daily 90 tablet 11/16/19 21 022 ondansetron ODT (ZOFRAN-ODT) 4 mg disintegrating tabletIndications:Nausea Take 1 tablet (4 mg total) by mouth every 8 (eight) hours as needed for nausea or vomiting 21 tablet 01/07/20 21 022 spironolactone (ALDACTONE) 50 mg tabletIndications:Cystic acne vulgaris Take 1 tablet (50 mg total) by mouth daily 90 tablet 03/18/20 21 021 traZODone (DESYREL) 50 mg tablet 02/15/20 21 022 documented as of this encounter Discharge Disposition Disposition Code Departure Means Destination Discharge to home or self care documented in this encounter Miscellaneous Notes * Result Encounter Note - Eliseo Lambert MD - 06/02/2021 11:59 PM DIESEL POWERPLANT SUPERVISOR Stable kidney function and electrolytes, low vitamin D level again - make sure you are taking [id number] international units of vitamin D3 on a daily basis. Normal thyroid gland function noted. EL POWERPLANT SUPERVISOR documented in this encounter Plan of Treatment Not on file documented as of this encounter Procedures Procedure Name Priority Date/Time Associated Diagnosis Comments EGFR Routine 06/02/2021 9:52 AM DIESEL POWERPLANT SUPERVISOR Pure hypercholesterolemia THYROID FUNCTION CASCADE Routine 06/02/2021 9:52 AM DIESEL POWERPLANT SUPERVISOR Major depressive disorder with single episode, in partial remission (HCC) VITAMIN D 25 HYDROXY Routine 06/02/2021 9:52 AM DIESEL POWERPLANT SUPERVISOR Vitamin D deficiency COMPREHENSIVE METABOLIC PANEL Routine 06/02/2021 9:52 AM DIESEL POWERPLANT SUPERVISOR Pure hypercholesterolemia documented in this encounter Results * eGFR (06/02/2021 9:52 AM DIESEL POWERPLANT SUPERVISOR) eGFR 79 mL/min/1.7 3 m2 JANIE PULIDO Comment: Interpretive Data Reference Interval Normal ?>/= 90 mL/min/1.73m2 Mildly decreased* ? 60 - 89 mL/min/1.73m2 Mildly to moderately decreased ?45 - 59 mL/min/1.73m2 Moderately to severely decreased ??30 - 44 mL/min/1.73m2 Severely decreased ?15 - 29 mL/min/1.73m2 Kidney Failure ?< 15 ??mL/min/1.73m2 *Relative to young adult level Estimated glomerular filtration rate is determined by the CKD-EPI equation recommended by the National Kidney Foundation (KDIGO 2012 Clinical Practice Guideline for the Evaluation and Management of Chronic Kidney Disease. Kidney Intnl Suppl Jun 2012;3:1). The CKD-EPI equation should not be used for patients with unstable renal function and has not been validated in children and those over 70. Current interpretive data was last reviewed 2020 Blood 06/02/2021 9:52 AM DIESEL POWERPLANT SUPERVISOR 06/02/2021 6:21 PM DIESEL POWERPLANT SUPERVISOR Eliseo Lambert MD LAB BLOOD ORDERABLES Fi nal Result Performing Organization Address City/[facility]/ZIP Co de Phone Number [facility] [address] [address] [place] [address] * TSH reflex to free T4 (06/02/2021 9:52 AM DIESEL POWERPLANT SUPERVISOR) TSH 3.24 0.30 - 4.20 mcIUnit/mL [facility] Blood 06/02/2021 9:52 AM DIESEL POWERPLANT SUPERVISOR 06/02/2021 6:10 PM DIESEL POWERPLANT SUPERVISOR Eliseo Lambert MD LAB BLOOD ORDERABLES Fi nal Result Performing Organization Address [facility] Co de Phone Number [facility] [address] [address] [place] [address] * Comprehensive metabolic panel (06/02/2021 9:52 AM DIESEL POWERPLANT SUPERVISOR) Sodium 140 135 - 145 mmol/L [facility] Potassium, pl 4.1 3.3 - 4.9 mmol/L [facility] Chloride 104 97 - 110 mmol/L [facility] CO2 26 22 - 32 mmol/L [facility] Anion gap 10 2 - 15 mmol/L [facility] BUN 10 8 - 25 mg/dL [facility] Creatinine 0.87 0.60 - 1.10 mg/dL [facility] Glucose 78 70 - 199 mg/dL [facility] Comment: Interpretive Data Fasting glucose >/= 126 [...] interpretive data was last revised 2017. Calcium 9.4 8.5 - 10.3 mg/dL [facility] Bilirubin, total 0.3 0.1 - 1.2 mg/dL [facility] Protein, pl 7.2 6.5 - 8.5 g/dL [facility] Albumin 4.4 3.5 - 5.0 g/dL [facility] Alk phos 95 40 - 130 Units/L [facility] ALT 9 7 - 45 Units/L [facility] AST 28 10 - 45 Units/L [facility] Blood 06/02/2021 9:52 AM DIESEL POWERPLANT SUPERVISOR 06/02/2021 6:10 PM DIESEL POWERPLANT SUPERVISOR Eliseo Lambert MD LAB BLOOD ORDERABLES Fi nal Result Performing Organization Address [facility] de Phone Number JANIE PULIDO [address] [employer] [place], [place] [phone] * (ABNORMAL) Vitamin D 25 hydroxy (06/02/2021 9:52 AM DIESEL POWERPLANT SUPERVISOR) Vitamin D 25-OH 22(L) 30 - 80 ng/mL [facility] Blood 06/02/2021 9:52 AM DIESEL POWERPLANT SUPERVISOR 06/02/2021 6:10 PM DIESEL POWERPLANT SUPERVISOR Eliseo Lambert MD LAB BLOOD ORDERABLES Fi nal Result Performing Organization Address [facility] Co de Phone Number JANIE TESS [address] [place] [address] documented in this encounter Visit Diagnoses Diagnosis Pure hypercholesterolemia Vitamin D deficiency Major depressive disorder with single episode, in partial remission (HCC) documented in this encounter Care Teams Trolley Car Operator Relationship Specialty Start Date End Date Eliseo Lambert MD PCP - General Family Medicine 05/21/20 06/29/23 documented as of this encounter
--- OUTSIDE RECORDS SUMMARY | 2024-06-25 09:52 | XMS_ITS | Encounter Summary ---
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 COM ANALYST * Telephone Encounter - Merle Mcclendon MA - 08/22/2021 3:45 PM CST Kristy contacted the office and left a message requesting an Kidney function panel be ordered because she is having some symptoms and doesn't want to come into the office. I contacted Kristy back she states she is having some back pain and feeling sluggish. I let her know Dr. Lambert is out of the office today and will return Wednesday and he may want her tocome into the office to be evaluated. COM ANALYST documented in this encounter Plan of Treatment Not on file documented as of this encounter Visit Diagnoses Diagnosis CKD (chronic kidney disease) stage 2, GFR 60-89 ml/min- Primary Chronic kidney disease, Stage II (mild) documented in this encounter Care Teams Court Messenger Relationship Specialty Start Date End Date Eliseo Lambert MD PCP - General Family Medicine 05/21/20 06/29/23 documented as of this encounter
--- OUTSIDE RECORDS SUMMARY | 2024-06-25 09:52 | XMS_ITS | Encounter Summary ---
Author Organization [facility] Address [address] [place] [address] Care Team Providers Care Mill Feeder Name Role Phone Rhys Alonso MD Primary Care Provider Reason for Referral * Diagnostic Imaging (Routine) - Closed Specialty Diagnoses / Procedures Referred By Mirlande steinberg Referred To Contact Diagnoses Encounter for screening mammogram for malignant neoplasm of breast Procedures SCREENING MAMMOGRAM BILATERAL W Rhys Monk MD Phone: tel: fax: [address] [phone] Referral ID Status Reason Start Date Expiration Date Visits Re quested Visits Authorized [id number] Closed 06/02/2021 07/02/2022 1 1 FITTER Reason for Visit * Diagnostic Imaging (Routine) - Closed Specialty Diagnoses / Procedures Referred By Mirlande steinberg Referred To Contact Diagnoses Encounter for screening mammogram for malignant neoplasm of breast Procedures SCREENING MAMMOGRAM BILATERAL W Rhys Monk MD Phone: tel: fax: [address] [address] Referral ID Status Reason Start Date Expiration Date Visits Re quested Visits Authorized [id number] Closed 06/02/2021 07/02/2022 1 1 Encounter Details Date Type Department Care Team (Latest Contact Info) Description 08/02/2021 9:55 AM GUN FITTER - 08/02/2021 11:59 PM GUN FITTER Hospital Encounter [facility] [address] [id number] Rhys Alonso MD [address] [address] [place] [address] Encounter for screening mammogram for malignant neoplasm of breast Discharge Disposition: Discharge to home or self [...] on file Legal Sex Female 1:17 AM GUN FITTER Gender Identity Not on file Sexual Orientation Not on file 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 Not on file Not on file documented as of this encounter Last Filed Vital Signs Vital Sign Reading Time Taken Comments Blood Pressure - - Pulse - - Temperature - - Respiratory Rate - - Oxygen Saturation - - Inhaled Oxygen Concentration - - Weight 55.3 kg (122 lb) 08/02/2021 10:04 AM GUN FITTER Height 154.9 cm (5' 1 ) 08/02/2021 10:04 AM GUN FITTER Body Mass Index 23.05 08/02/2021 10:04 AM GUN FITTER documented in this encounter Medications at Time [...] total) by mouth every morning 04/12/20 20 OneTouch Verio Flex meter [facility] 09/20/19 21 atorvastatin (LIPITOR) 20 mg tabletIndications:Pure hypercholesterolemia Take 1 tablet (20 mg total) by mouth daily 90 tablet 03/27/20 21 022 cholecalciferol (VITAMIN D-3) 5,000 unit tabletIndications:Vitami n D Deficiency Take 1 tablet (5,000 Units total) by mouth daily 90 tablet 3 07/14/19 22 023 clonazePAM (KlonoPIN) 0.5 mg tablet 0.5 mg [...] TABLET BY MOUTH EVERY DAY 90 tablet 06/18/20 21 022 traZODone (DESYREL) 50 mg tablet 02/15/20 21 022 documented as of this encounter Discharge Disposition Disposition Code Departure Means Destination Discharge to home or self care documented in this encounter Miscellaneous Notes * Result Encounter Note - Rhys Alonso MD - 08/02/2021 11:59 PM GUN FITTER Your screening mammogram result showed no concerning findings. Please continue with routine annual screening mammogram. FITTER * Result Encounter Note - Jaclyn Holman MA - 08/02/2021 11:59 PM GUN FITTER Patient has been informed. FITTER documented in this encounter Plan of Treatment Not on file documented as of this encounter Procedures Procedure Name Priority Date/Time Associated Diagnosis Comments SCREENING MAMMOGRAM BILATERAL W MARIVEL Schedule Routine, Read Routine (OP Routine) 08/02/2021 10:11 AM GUN FITTER Encounter for screening mammogram for malignant neoplasm of breast documented in this encounter Results * SCREENING MAMMOGRAM BILATERAL W MARIVEL (08/02/2021 10:11 AM GUN FITTER) Anatomical Region Laterality Modality Breast Bilateral Mammography 08/04/2021 10:0 0 AM GUN FITTER Impressions 08/04/2021 10:00 AM GUN FITTER There is no mammographic evidence of malignancy. A 1 year screening mammogram is recommended. BI-RADS: 1 - Negative. The patient has been or will be contacted. The patient will be entered into a reminder system with a target due date of 1 year for her next mammogram. Electronically signed by: Michael Uribe M.D. Narrative 08/04/2021 10:00 AM GUN FITTER EXAMINATION: SCREENING MAMMOGRAM BILATERAL W MARIVEL ORDERING HEALTHCARE PROVIDER: RHYS ALONSO HISTORY: Routine screening mammography. COMPARISON: ??None available, baseline mammogram TECHNIQUE: CC and MLO views of the bilateral breasts and an CC view of the left breast were obtained with digital technique using breast tomosynthesis with C view. Computer aided detection was utilized. FINDINGS: DENSITY: The tissue of the bilateral breasts is heterogeneously dense, which may obscure small masses. BREASTS: There are no suspicious masses, suspicious calcifications, or other suspicious findings in either breast. us Rhys Alonso MD IMG MAMMO PROCEDURES Fi nal Result documented in this encounter Visit Diagnoses Diagnosis Encounter for screening mammogram for malignant neoplasm of breast documented in this encounter Care Teams Mill Feeder Relationship Specialty Start Date End Date Rhys Alonso MD PCP - General Family Medicine 05/21/20 06/29/23 documented as of this encounter
--- OUTSIDE RECORDS SUMMARY | 2024-06-25 09:52 | XMS_ITS | Encounter Summary ---
Author Organization [facility] Address [address] [place] [address] Care Team Providers Care Respiratory Therapy Instructor Name Role Phone Eliseo Lambert MD Primary Care Provider Reason for Visit * Reason Comments Anxiety/Depression 6 week fu Encounter Details Date Type Department Care Team (Late st Contact Info) Description 07/14/2021 10:15 AM NUCLEAR WASTE PROCESS OPERATOR Office Visit [facility] [address] [facility] [address] [place] [address] Eliseo Lambert MD [address] [place] [address] [address] [place] [address] CKD (chronic kidney disease) stage 2, GFR 60-89 ml/min (Primary Dx); BMI 22.0-22.9, adult; Pure hypercholesterolemia ; Vitamin D deficiency; Cervical strain, subsequent encounter Social History Tobacco Use Types Packs/Day Years [...] on file Legal Sex Female 1:17 AM NUCLEAR WASTE PROCESS OPERATOR Gender Identity Not on file Sexual Orientation Not on file 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 Not on file Not on file documented as of this encounter Last Filed Vital Signs Vital Sign Reading Time Taken Comments Blood Pressure 112/72 07/14/2021 10:22 AM NUCLEAR WASTE PROCESS OPERATOR Pulse 75 07/14/2021 10:22 AM NUCLEAR WASTE PROCESS OPERATOR Temperature - - Respiratory Rate - - Oxygen Saturation 95% 07/14/2021 10:22 AM NUCLEAR WASTE PROCESS OPERATOR Inhaled Oxygen Concentration - - Weight 55.3 kg (122 lb) 07/14/2021 10:22 AM NUCLEAR WASTE PROCESS OPERATOR Height 156.2 cm (5' 1.5 ) 07/14/2021 10:22 AM CS T Body Mass Index 22.68 07/14/2021 10:22 AM NUCLEAR WASTE PROCESS OPERATOR documented in this encounter Ordered Prescriptions Prescription Sig Dispense Quantity Refills Last Filled Start Date End Date cholecalciferol (VITAMIN D-3) 5,000 unit tabletIndications: Vitamin D Deficiency Take 1 tablet (5,000 Units total) by mouth daily 90 tablet 3 07/14/2021 07/24/2022 documented in this encounter Progress Notes * Eliseo Lambert MD - 07/14/2021 10:15 AM CST Images from the original note were not included. Assessment/Plan Diagnoses and all orders for this visit: CKD (chronic kidney disease) stage 2, GFR 60-89 ml/min (Primary) Assessment & Plan: - chronic, stable - has family hx [...] 06/02/2021 AST 28 06/02/2021 ALT 9 06/02/2021 BMI 22.0-22.9, adult Pure hypercholesterolemia Assessment & Plan: - chronic, not at goal - most recent LDL as shown below, worsening - has been on Atorvastatin 20 mg since 06/17 - recheck Lipid panel before next visit - most recent LDL as shown below Lab Results Component Value Date LDLCALC 173 (H) 01/06/2021 Orders: - Lipid panel; Future Vitamin D deficiency Assessment & Plan: - chronic, improved but not at goal - Noted on 08/2020 - Vit D Level 17 --> 28 - improved control since last time - completed weekly high dose vitamin D - currently on 2000 international units Vitamin D3 daily--> increase to 5000 international unitsVitamin D3 daily - new script sent Orders: - cholecalciferol (VITAMIN D-3) 5,000 unit tablet; Take 1 tablet (5,000 Units total) by mouth daily Cervical strain, subsequent encounter Assessment & Plan: - chronic, since injury at work - [...] 10 mg PRN - continue current therapy Return in about 3 months (around 10/12/2021). Subjective/Objective Chief Complaint Patient presents with ??? Anxiety/Depression 6 week fu HPI Kristy Kapoor is a 45 y.o. female who is here for neck pain, hypercholesterolemia, anxiety and depression. She has scheduled Mammogram for Aug 02, 2021. She is due for colon cancer screening. She has been taking her statin medication, due for recheck of her Lipid panel. She would like to return to work at this time. I have recommended additional Physical therapy whichwas apparently denies. She still has neck pain and stiffness but is able to work. She is currently on light duty only. She has a skin concern, Advised her to call insurance and find out the closest in network refinery operator so I can place a referral for her. She has been checking her blood glucose a few hours after she eats. She gets low to the point 80-90s which makes her feel shaky, jittery. She does not have diabetes which has been checked. Following with Psychiatry, Dr. Hill. Still has anxiety and depression. Currently on Clonazepam 0.5mg BID - she does not take it regularly, wellbutrin XL 300 mg daily. Shedoes not take the Trazodone as it makes her very sleepy and she has an 8 year old child that she wants to be able to wake up if she has too. PHQ9 - Depression Screening tool questionnaire Over the last 2 weeks, how often have you been bothered by any of the following problems? Little Interest or Pleasure in Doing Things: Nearly every day Feeling Down, Depressed, or Hopeless: Nearly every day PHQ-2 Total Score (If total score is 3 or more points, staff should administer the PHQ-9): 6 Over the past 2 weeks, how often have you been bothered by any of the following problems? Little Interest or Pleasure in Doing Things: Nearly every day Feeling Down, Depressed, or Hopeless: Nearly every day PHQ-2 Total Score (If total score is 3 or more points, staff should administer the PHQ-9): 6 Trouble Falling or Staying Asleep, or Sleeping too Much: Nearly every day Feeling Tired or Having Little Energy: More than half the days Poor Appetite or Overeating: More than half the days Feeling Bad About Yourself - or That You are a Failure or Have Let Yourself or Your Family Down: Several days Trouble Concentrating on Things, Such as Reading the Newspaper or Watching Television: Nearly everyday Moving or Speaking so Slowly That Other People Could Have Noticed, or the Opposite - Being so Fidgety or Restless That You Have Been Moving Around a lot More Than Usual: Several days Thoughts That You Would be Better off , or of Hurting Yourself in Some Way: Not at all PHQ-9 Total Score: 18 If you checked off any problems, how difficult have these problems made it for you to do your work,take care of things at home, or get along with other people?: Somewhat difficult Interpretation of PHQ9 Total Score 1-4 = Minimal depression 5-9 = Mild depression 10-14 = Moderate depression 15-19 = Moderately severe depression 20-27 = Severe depression Patient Care Team: Eliseo Lambert MD as PCP - General (Family Medicine) Labs: Lab Results Component Value Date CHOL 258 (H) 01/06/2021 TRIG 113 01/06/2021 HDL 62 01/06/2021 Lab Results Component Value Date LDLCALC 173 (H) 01/06/2021 Lab Results Component Value Date TSH 3.24 06/02/2021 Lab Results Component Value Date HGBA1C 5.3 03/27/2021 HGBA1C 5.3 05/30/2020 Review of Systems Constitutional: Negative for activity change, appetite change, fatigue and unexpected weight change. Respiratory: Negative for cough, choking, shortness of breath and wheezing. Cardiovascular: Negative for chest pain and palpitations. Gastrointestinal: Positive for constipation (alternating), diarrhea (alternating) and nausea. Negative for abdominal pain, blood in stool and vomiting. Musculoskeletal: Positive for neck pain. Negative for gait problem. Skin: Negative for rash and wound. Concern about raised skin lesion over the right nose Neurological: Negative for tremors, seizures, syncope and headaches. Psychiatric/Behavioral: Positive for dysphoric mood and sleep disturbance. Negative for agitation, behavioral problems, confusion, decreased concentration, hallucinations, self-injury and suicidal ideas. The patient is nervous/anxious. The patient is not hyperactive. Vitals: 07/14/21 1022 BP: 112/72 BP Location: Right arm Patient Position: Sitting Pulse: 75 SpO2: 95% Weight: 55.3 kg (122 lb) Height: 156.2 cm (5' 1.5 ) Wt Readings from Last 3 Encounters: 07/14/21 55.3 kg (122 lb) 06/02/21 55.9 kg (123 lb 4.8 oz) 04/17/21 57 kg (125 lb 9.6 oz) Body mass index is 22.68 kg/m??. Physical Exam Vitals reviewed. Constitutional: General: She is not in acute distress. Appearance: Normal appearance. She is not ill-appearing, toxic-appearing or diaphoretic. HENT: Head: Normocephalic and atraumatic. Eyes: Extraocular Movements: Extraocular movements intact. Cardiovascular: Rate and Rhythm: Normal rate and regular rhythm. Pulses: Normal pulses. Pulmonary: Effort: Pulmonary effort is normal. No respiratory distress. Breath sounds: Normal breath sounds. Musculoskeletal: Cervical back: Spasms and tenderness present. No swelling, edema, deformity, erythema, signs of trauma, lacerations, rigidity, torticollis, bony tenderness or crepitus. Pain with movement present. Decreased range of motion. Skin: General: Skin is warm. Findings: No rash. Neurological: General: No focal deficit present. Mental Status: She is alert and oriented to person, place, and time. Mental status is at baseline. Gait: Gait normal. Psychiatric: Attention and Perception: Attention normal. She is attentive. She does not perceive auditory or visual hallucinations. Mood and Affect: Mood is not anxious, depressed or elated. [...] not impulsive or inappropriate. Eliseo Lambert MD July 14, 2021 12:14 PM Please note: Voice recognition software [employer] Direct was used dictate and transcribe this document. Paleologist variances may occur. Despite proofreading, typographical errors may occur. EAR WASTE PROCESS OPERATOR documented in this encounter Miscellaneous Notes * Assessment & Plan Note - Eliseo Lambert MD - 07/14/2021 12:10 PM NUCLEAR WASTE PROCESS OPERATOR Associated Problem(s): Vitamin D deficiency - chronic, improved but not at goal - Noted on 08/2020 - Vit D Level 17 --> 28 - improved control since last time - completed weekly high dose vitamin D - currently on 2000 international units Vitamin D3 daily--> increase to 5000 international unitsVitamin D3 daily - new script sent EAR WASTE PROCESS OPERATOR * Assessment & Plan Note - Eliseo Lambert MD - 07/14/2021 12:09 PM NUCLEAR WASTE PROCESS OPERATOR Associated Problem(s): Pure hypercholesterolemia - chronic, not at goal - most recent LDL as shown below, worsening - has been on Atorvastatin 20 mg since 06/17 - recheck Lipid panel before next visit - most recent LDL as shown below Lab Results Component Value Date LDLCALC 173 (H) 01/06/2021 EAR WASTE PROCESS OPERATOR EAR WASTE PROCESS OPERATOR * Assessment & Plan Note - Eliseo Lambert MD - 07/14/2021 12:08 PM NUCLEAR WASTE PROCESS OPERATOR Associated Problem(s): CKD (chronic kidney disease) stage 2, GFR 60-89 ml/min - chronic, stable - has family hx [...] 06/02/2021 AST 28 06/02/2021 ALT 9 06/02/2021 EAR WASTE PROCESS OPERATOR * Assessment & Plan Note - Eliseo Lambert MD - 07/14/2021 12:07 PM NUCLEAR WASTE PROCESS OPERATOR Associated Problem(s): Cervical strain, subsequent encounter (Resolved 02/11/2022) - chronic, since injury at work - [...] 10 mg PRN - continue current therapy EAR WASTE PROCESS OPERATOR EAR WASTE PROCESS OPERATOR documented in this encounter Plan of Treatment Not on file documented as of this encounter Visit Diagnoses Diagnosis CKD (chronic kidney disease) stage 2, GFR 60-89 ml/min- Primary Chronic kidney disease, Stage II (mild) BMI 22.0-22.9, adult Pure hypercholesterolemia Vitamin D deficiency Cervical strain, subsequent encounter documented in this encounter Discontinued Medications Medication Sig Discontinue Reason Start Date End Da te cholecalciferol (VITAMIN D-3) 2000 unit tabletIndications:Vitam in D Deficiency Take 1 tablet (2,000 Units total) by mouth daily Pleas take after finishing 12 weeks of high dose vitamin D (50,000 units/week) therapy 09/20/2020 07/14/2021 documented as of this encounter Care Teams Respiratory Therapy Instructor Relationship Specialty Start Date End Date Eliseo Lambert MD PCP - General Family Medicine 05/21/20 06/29/23 documented as of this encounter
--- OUTSIDE RECORDS SUMMARY | 2024-06-25 09:52 | XMS_ITS | Encounter Summary ---
Author Organization [facility] Address [address] [place] [address] Care Team Providers Care Hostess Party Sales Representative Name Role Phone Eliseo Lambert MD Primary Care Provider Reason for Visit * Reason Onset Date Comments Lab order 06/02/2021 Encounter Details Date Type Department Care Team (Late st Contact Info) Description 06/02/2021 Telephone [facility] [address] [facility] [address] [place] [address] Eliseo Lambert MD [address] [place] [address] [address] [place] [address] Lab order Social History Tobacco Use Types Packs/Day Years [...] on file Legal Sex Female 1:17 AM HULL LINE CREW MEMBER Gender Identity Not on file Sexual Orientation Not on file 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 Lipid has been cancelled LINE CREW MEMBER * Telephone Encounter - Eliseo Lambert MD - 06/02/2021 10:23 AM HULL LINE CREW MEMBER No need for lipid panel, she only started the medication a week ago so will check on next visit LINE CREW MEMBER * Telephone Encounter - Rosana Mike MA - 06/02/2021 10:14 AM HULL LINE CREW MEMBER Estefany from [facility] in [place] called and stated patient come for her labs And afterward pt told the tech she was not fasting. Estefany is asking for a new order so the patient cn come in when she is fasting. Please advise Estefany can be reached [phone] LINE CREW MEMBER documented in this encounter Plan of Treatment Not on file documented as of this encounter Visit Diagnoses Not on filedocumented in this encounter Care Teams Hostess Party Sales Representative Relationship Specialty Start Date End Date Eliseo Lambert MD PCP - General Family Medicine 05/21/20 06/29/23 documented as of this encounter
--- OUTSIDE RECORDS SUMMARY | 2024-06-25 09:52 | XMS_ITS | Encounter Summary ---
Author Organization [facility] Address [address] [place] [address] Care Team Providers Care Director Of Donor Relations Name Role Phone Eliseo Lambert MD Primary Care Provider Reason for Referral * Cardiology (Routine) - Closed Specialty Diagnoses / Procedures Referred By Contac t Referred To Contact Diagnoses Chest pain, unspecified type Procedures ECG 12 lead Eliseo Lambert MD Phone: tel: fax: [address] [phone] Referral ID Status Reason Start Date Expiration Date Visits Re quested Visits Authorized [id number] Closed 05/05/2022 06/04/2023 1 1 TAIN PEN NIBS INSPECTOR Reason for Visit * Cardiology (Routine) - Closed Specialty Diagnoses / Procedures Referred By Contac t Referred To Contact Diagnoses Chest pain, unspecified type Procedures ECG 12 lead Eliseo Lambert MD Phone: tel: fax: [address] [phone] Referral ID Status Reason Start Date Expiration Date Visits Re quested Visits Authorized [id number] Closed 05/05/2022 06/04/2023 1 1 Encounter Details Date Type Department Care Team (Latest Contact Info) Description 05/06/2022 12:45 PM FOUNTAIN PEN NIBS INSPECTOR - 05/06/2022 11:59 PM FOUNTAIN PEN NIBS INSPECTOR Hospital Encounter [facility] Cardiology [address] [place] [address] Chest pain, unspecified type Discharge Disposition: Discharge to home or self [...] on file Legal Sex Female 1:17 AM FOUNTAIN PEN NIBS INSPECTOR Gender Identity Not on file Sexual Orientation Not on file 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 Not on file Not [...] tablet 11/04/19 22 OneTouch Verio Flex meter [facility] 09/20/19 21 atorvastatin (LIPITOR) 20 mg tabletIndications:Pure [...] muscle spasms 30 tablet 11/16/[address] (PROTONIX) 40 mg EC tabletIndications:Abdomi [...] Encounter Note - Eliseo Lambert MD - 05/06/2022 11:59 PM FOUNTAIN PEN NIBS INSPECTOR Normal findings on ECG obtained TAIN PEN NIBS INSPECTOR documented in this encounter Plan of Treatment Not on file documented as of this encounter Procedures Procedure Name Priority Date/Time Associated Diagnosis Comments ECG 12-LEAD Routine 05/06/2022 1:13 PM FOUNTAIN PEN NIBS INSPECTOR Chest pain, unspecified type documented in this encounter Results * ECG 12 lead (05/06/2022 1:13 PM FOUNTAIN PEN NIBS INSPECTOR) 05/06/2022 1:08 PM FOUNTAIN PEN NIBS INSPECTOR Narrative [facility] - 05/06/2022 2:17 PM FOUNTAIN PEN NIBS INSPECTOR Vent Rate: 73 bpm RR Interval: 819 msec [place] Interval: 166 msec QRS Duration: 78 msec QT Interval: 335 msec QTC Interval: 360 msec P-R-T [place]: 48 - 24 - 54 degrees SINUS RHYTHM NORMAL ECG Electronically Signed By: Jb Bowser MD us Eliseo Lambert MD ECG ORDERABLES Final R esult [facility] documented in this encounter Visit Diagnoses Diagnosis Chest pain, unspecified type documented in this encounter Care Teams Director Of Donor Relations Relationship Specialty Start Date End Date Eliseo Lambert MD PCP - General Family Medicine 05/21/20 06/29/23 documented as of this encounter
--- OUTSIDE RECORDS SUMMARY | 2024-06-25 09:52 | XMS_ITS | Encounter Summary ---
Author Organization [facility] Address [address] [facility] [address] [place] [address] Care Team Providers Care Accountant Supervisor Name Role Phone Eliseo Lambert MD Primary Care Provider Reason for Visit * Reason Onset Date Comments Post Dates 10/28/2021 over due cologaurd 10/28/2021 Encounter Details Date Type Department Care Team (Late Contact Info) Description 10/28/2021 Telephone [facility] [address] [place] [address] Eliseo Lambert MD [address] [place] [address] [address] [place] [address] Post Dates; over due cologaurd Social History Tobacco Use Types Packs/Day Years [...] on file Legal Sex Female 1:17 AM FIVE ROLL REFINER BATCH MIXER Gender Identity Not on file Sexual Orientation Not on file 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 documented in this encounter Plan of Treatment Not on file documented as of this encounter Visit Diagnoses Not on filedocumented in this encounter Care Teams Accountant Supervisor Relationship Specialty Start Date End Date Eliseo Lambert MD PCP - General Family Medicine 05/21/20 06/29/23 documented as of this encounter
--- OUTSIDE RECORDS SUMMARY | 2024-06-25 09:52 | XMS_ITS | Encounter Summary ---
Author Organization [facility] Medical Group Address [address] [place] [address] Care Team Providers Care Billing Specialist Name Role Phone Eliseo Lambert MD Primary Care Provider Reason for Visit * Reason Comments Back Pain Encounter Details Date Type Department Care Team ([facility] st Contact Info) Description 09/02/2021 2:30 PM OFFICE MESSENGER HELPER Office Visit [facility] [address] [place] [address] Kerri Silvestre NP [address] [place], [place] [address] [address] Muscle spasm of back (Primary Dx); Acute bilateral thoracic back pain; Urinary dribbling Social History Tobacco Use Types Packs/Day Years [...] on file Legal Sex Female 1:17 AM OFFICE MESSENGER HELPER Gender Identity Not on file Sexual Orientation Not on file 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 Not on file Not on file documented as of this encounter Last Filed Vital Signs Vital Sign Reading Time Taken Comments Blood Pressure 114/70 09/02/2021 2:39 PM OFFICE MESSENGER HELPER Pulse 85 09/02/2021 2:39 PM OFFICE MESSENGER HELPER Temperature 36.3 ??C (97.3 ??F) 09/02/2021 2:39 PM CS T Respiratory Rate 20 09/02/2021 2:39 PM OFFICE MESSENGER HELPER Oxygen Saturation 99% 09/02/2021 2:39 PM OFFICE MESSENGER HELPER Inhaled Oxygen Concentration - - Weight 55.7 kg (122 lb 14.4 oz) 09/02/2021 2:39 PM OFFICE MESSENGER HELPER Height 156.2 cm (5' 1.5 ) 09/02/2021 2:39 PM OFFICE MESSENGER HELPER Body Mass Index 22.85 09/02/2021 2:39 PM OFFICE MESSENGER HELPER documented in this encounter Patient Instructions * Patient Instructions* Kerri Silvestre NP - 09/02/2021 2:30 PM OFFICE MESSENGER HELPER Subjective/Objective Patient ID: Kristy Kapoor is a 45 y.o. female. Assessment/Plan Diagnoses and all orders for this visit: Muscle spasm of back (Primary) - methylPREDNISolone acetate (DEPO-medrol) injection 80 mg - ketorolac (TORADOL) 60 mg/2 mL intramuscular injection 60 mg Acute bilateral thoracic back pain - methylPREDNISolone acetate (DEPO-medrol) injection 80 mg - ketorolac (TORADOL) 60 mg/2 mL intramuscular injection 60 mg Urinary dribbling Comments: urine dip normal-pt would like it sent for culture. offered referral to urology- declined at this time Orders: - POCT UA, AUTO W/O SCOPE - Urine culture Urine, clean voided; Future For back pain: We will give toradol 60mg IM today and depomedrol 80mg today. Pt declined oral steroids. Pt has cyclobenzaprine and naproxen at home. Please use these meds. Please make sure to take with food to avoid stomach upset. May consider chiropractor if not improving in a few days. May use salonpas. Recommend doing muscle rub such as biofreeze/icy hot along with light massage. Thanks for coming in today. My medical office receptionist assistant, Talita, and I are thankful you have trusted us with your care, and hope that you received EXCELLENT care today! Please do not hesitate to call if you have any questions or concerns at [phone]. You may receive a phone call or text asking about your care today. We would love to hear your input and again, hope your visit was as EXCELLENT as possible, even if you were not feeling your best! CE MESSENGER HELPER documented in this encounter Progress Notes * Kerri Silvestre NP - 09/02/2021 2:30 PM CST Images from the original note were not included. Subjective/Objective Patient ID: Kristy Kapoor is a 45 y.o. female. Assessment/Plan Diagnoses and all orders for this visit: Muscle spasm of back (Primary) - methylPREDNISolone acetate (DEPO-medrol) injection 80 mg - ketorolac (TORADOL) 60 mg/2 mL intramuscular injection 60 mg Acute bilateral thoracic back pain - methylPREDNISolone acetate (DEPO-medrol) injection 80 mg - ketorolac (TORADOL) 60 mg/2 mL intramuscular injection 60 mg Urinary dribbling Comments: urine dip normal-pt would like it sent for culture. offered referral to urology- declined at this time Orders: - POCT UA, AUTO W/O SCOPE - Urine culture Urine, clean voided; Future For back pain: We will give toradol 60mg IM today and depomedrol 80mg today. Pt declined oral steroids. Pt has cyclobenzaprine and naproxen at home. Please use these meds. Please make sure to take with food to avoid stomach upset. May consider chiropractor if not improving in a few days. May use salonpas. Recommend doing muscle rub such as biofreeze/icy hot along with light massage. Thanks for coming in today. My medical office receptionist assistant, Talita, and I are thankful you have trusted us with your care, and hope that you received EXCELLENT care today! Please do not hesitate to call if you have any questions or concerns at [phone]. You may receive a phone call or text asking about your care today. We would love to hear your input and again, hope your visit was as EXCELLENT as possible, even if you were not feeling your best! Follow up if not improving follow up with Dr. 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 She had to crawl up the stairs from the basement. Location:by tailbone, middle Affected side: middle Duration:less than 24 hours Frequency/Timing:constant Progression:staying the same. She is able to walk now. Quality:dull, shooting sharp pains Severity:7/10 Associated symptoms:no nausea/vomiting. She is not having numbness or tingling. Legs get shaky whenwalking down stairs. Treatments tried:vaped marijuana and it helped. Heat helped a little . Review of Systems Respiratory: Negative for shortness of breath. Cardiovascular: Negative for chest pain. Genitourinary: Urinary dribbling and incontinence (had this prior to injuring back, not related) Musculoskeletal: Positive for back pain and gait problem. Psychiatric/Behavioral: Negative for suicidal ideas. BP 114/70 (BP Location: Right arm, Patient Position: Sitting) Pulse 85 Temp 36.3 ??C (97.3 ??F)(Oral) Resp 20 Ht 156.2 cm (5' 1.5 ) Wt 55.7 kg (122 lb 14.4 oz) SpO2 99% BMI 22.85 kg/m?? Physical Exam Constitutional: General: She is in acute distress (uncomfortable trying to sit in chair). Appearance: She is well-developed. HENT: Head: Normocephalic. Right Ear: Tympanic membrane normal. Left Ear: Tympanic membrane normal. Nose: Nose normal. Mouth/Throat: Mouth: Mucous membranes are moist. Eyes: Conjunctiva/sclera: Conjunctivae normal. Pupils: Pupils are equal, round, and reactive to light. Neck: Thyroid: No thyroid mass. Cardiovascular: Rate and Rhythm: Normal rate and regular rhythm. Pulses: Normal pulses. Heart sounds: No murmur heard. Pulmonary: Effort: Pulmonary effort is normal. Breath sounds: Normal breath sounds. Abdominal: General: Bowel sounds are normal. Palpations: Abdomen is soft. Tenderness: There is no abdominal tenderness. Musculoskeletal: General: Normal range of motion. Lumbar back: Spasms and tenderness present. Lymphadenopathy: Cervical: No cervical adenopathy. Skin: General: Skin is warm and dry. Capillary Refill: Capillary refill takes less than 2 seconds. Neurological: Mental Status: She is alert and oriented to person, place, and time. Psychiatric: Mood and Affect: Mood normal. Kerri Silvestre NP Please note: Voice recognition software Metranome Direct was used to dictate and transcribe this document. Steno Typist variances may occur. Despite proofreading, typographical errors may occur. CE MESSENGER HELPER documented in this encounter Miscellaneous Notes * Addendum Note - Ho Montgomery - 09/02/2021 2:30 PM CSTAddended by: HO MONTGOMERY on: 09/02/2021 08:05 PM Modules accepted: Orders CE MESSENGER HELPER documented in this encounter Plan of Treatment Not on file documented as of this encounter Procedures Procedure Name Priority Date/Time Associated Diagnosis Comments POCT URINALYSIS, AUTO W/O SCOPE Routine 09/02/2021 3:28 PM OFFICE MESSENGER HELPER Urinary dribbling documented in this encounter Results * Urine culture Urine, clean voided (09/02/2021 3:29 PM OFFICE MESSENGER HELPER) Report Final Report: Less than 100,000 colonies/mL (clinically insignificant growth based on current clinical standards) JANIE PULIDO Comment:Testing performed by : [facility], [address] [place]., [address] Organism (CLINICALLY INSIGNIFICANT GROWTH JANIE Urine, clean voided 09/02/2021 3:29 PM OFFICE MESSENGER HELPER 09/02/2021 10:43 PM OFFICE MESSENGER HELPER Narrative JANIE PULIDO - 09/04/2021 7:40 AM OFFICE MESSENGER HELPER Testing performed by [facility] ([phone]) us Kerri Silvestre NP LAB MICROBIOLOGY - GENERAL ORDERABLES Final Result JANIE [address] Department [place] [address] * POCT UA, AUTO W/O SCOPE (09/02/2021 3:28 PM OFFICE MESSENGER HELPER) Color, Urine, POC Yellow Clarity, ur, POC Clear Clear Glucose, ur, POC Negative Negative mg/dL Bilirubin, ur, POC Negative Negative, Small, Moderate, Large Ketones, ur, POC Negative Negative Specific Austin, POC 1.015 1.005 - 1.030 Blood, ur, POC Negative Negative pH, ur, POC 6.0 5.0 - 8.0 Protein, ur, POC Negative Negative Urobilinogen, Urine, POC 0.2 mg/dL Leukocytes, ur, POC Negative Negative Nitrite, ur, POC Negative Negative Appearance, fld Clear Clear Urine, clean voided 09/02/2021 3:28 PM OFFICE MESSENGER HELPER Kerri Silvestre NP POINT OF CARE TEST ORDERABL ES Final Result documented in this encounter Visit Diagnoses Diagnosis Muscle spasm of back- Primary Acute bilateral thoracic back pain Urinary dribbling Urinary dribbling documented in this encounter Administered Medications Inactive Administered Medications - up to 3 most recent administrations Medication Order MAR Action Action Date Dose Rate Site ketorolac (TORADOL) 60 mg/2 mL intramuscular injection 60 mg 60 mg, intramuscular, Once, On Wed09/02/21 at 1600, For 1 doseIndications:Muscle spasm of back,Acute bilateral thoracic back pain Given 09/02/2021 3:23 PM OFFICE MESSENGER HELPER 60 mg Right Dorsogluteal/Butto ck Given 09/02/2021 3:20 PM OFFICE MESSENGER HELPER 60 mg Ri ght Dorsogluteal/Buttock methylPREDNISolone acetate (DEPO-medrol) injection 80 mg 80 mg, intramuscular, Once, On Wed09/02/21 at 1600, For 1 doseIndications:Muscle spasm of back,Acute bilateral thoracic back pain Given 09/02/2021 3:26 PM OFFICE MESSENGER HELPER 80 mg Left Dorsogluteal/Buttock Given 09/02/2021 3:24 PM OFFICE MESSENGER HELPER 80 mg Ri ght Dorsogluteal/Buttock documented in this encounter Care Teams Billing Specialist Relationship Specialty Start Date End Date Eliseo Lambert MD PCP - General Family Medicine 05/21/20 06/29/23 documented as of this encounter
--- OUTSIDE RECORDS SUMMARY | 2024-06-25 09:52 | XMS_ITS | Encounter Summary ---
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 Gender Identity Not on file Sexual Orientation Not on file 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 Not on file Not on file documented as of this encounter Discharge Disposition Disposition Code Departure Means Destination Discharge to home or self care documented in this encounter Miscellaneous Notes * Result Encounter Note - Eliseo Lambert MD - 09/26/2021 2:10 PM CDT Stable kidney function, stage 2 chronic kidney disease, big improvement in cholesterol with medication use, normal electrolytes documented in this encounter Plan of Treatment Not on file documented as of this encounter Procedures Procedure Name Priority Date/Time Associated Diagnosis Comments EGFR Routine 09/26/2021 10:25 AM CDT Pure hypercholesterolemia RENAL FUNCTION PANEL Routine 09/26/2021 10:25 AM CDT Pure hypercholesterolemia LIPID PANEL Routine 09/26/2021 10:25 AM CDT Pure hypercholesterolemia documented in this encounter Results * eGFR (09/26/2021 10:25 AM CDT) eGFR 70 mL/min/1. 73 m2 JANIE LOYOLA (AMANUEL) Comment: Interpretive Data Reference Interval Normal ?>/= [...] interpretive data was last reviewed 2021. Blood 09/26/2021 10:2 5 AM CDT 09/26/2021 1:25 PM CDT Eliseo Lambert MD LAB BLOOD ORDERABLES Fi nal Result Performing Organization Address City/[facility]/ZIP Co de Phone Number JANIE ELIAS) [address] [facility] Department [place] [address] * Renal function panel (09/26/2021 10:25 AM CDT) Sodium 140 135 - 145 mmol/L [facility] (AMANUEL) Potassium, pl 4.4 3.3 - 4.9 mmol/L [facility] (AMANUEL) Chloride 103 97 - 110 mmol/L [facility] (AMANUEL) CO2 28 22 - 32 mmol/L [facility] (AMANUEL) Anion gap 9 2 - 15 mmol/L [facility] (AMANUEL) BUN 11 8 - 25 mg/dL [facility] (AMANUEL) Creatinine 0.99 0.60 - 1.10 mg/dL [facility] (AMANUEL) Glucose 88 70 - 199 mg/dL [facility] (AMANUEL) [...] interpretive data was last revised 2017. Calcium 9.3 8.5 - 10.3 mg/dL [facility] ([place]EL) Phosphorus, pl 3.4 2.3 - 4.5 mg/dL [facility] ([place]AN[place]EL) Albumin 4.3 3.5 - 5.0 g/dL [facility] (AMANUEL) Blood 09/26/2021 10:2 5 AM CDT 09/26/2021 1:25 PM CDT Eliseo Lambert MD LAB BLOOD ORDERABLES Fi nal Result Performing Organization Address [facility]/State/ZIP Co de Phone Number JANIE MILLA (AMANUEL) [address] [facility] Department [place] [address] * Lipid panel (09/26/2021 10:25 AM CDT) [facility] Signature Cholesterol 153 30 - 199 mg/dL JANIE LOYOLA (AMANUEL) Comment: Interpretive Data [...] Data was last revised on 2018. Triglycerides 57 <=149 mg/dL JANIE LOYOLA (AMANUEL) Comment: Interpretive [...] Data was last revised on 2018. HDL 68 >=40 mg/dL JANIE Porter (AMANUEL) Comment: Interpretive [...] was last revised on 2018. LDL, calculated 74 <=129 mg/dL JANIE LOYOLA (AMANUEL) Comment: Interpretive [...] was last revised on 2018. Non-HDL Cholesterol 85 mg/dL JANIE LOYOLA (AMANUEL) Comment: Interpretive Data [...] was last revised on 2018. Chol/HDL ratio 2 CHARLIE LOYOLA (SUNSHINE) Blood 09/26/2021 10:2 5 AM CDT 09/26/2021 1:25 PM CDT us Eliseo Lambert MD LAB BLOOD ORDERABLES Fi nal Result JANIE MILLA (SUNSHINE) [address] [facility] Department of Laboratories [place], [place] [id number] documented in this encounter Visit Diagnoses Diagnosis Pure hypercholesterolemia documented in this encounter Care Teams Strategic Sourcing Manager Relationship Specialty Start Date End Date Eliseo Lambert MD PCP - General Family Medicine 05/21/20 06/29/23 documented as of this encounter
--- OUTSIDE RECORDS SUMMARY | 2024-06-25 09:52 | XMS_ITS | Encounter Summary ---
Author Organization [facility] Medical Group Address [address] [place] [address] Care Team Providers Care Boiler Riveter Name Role Phone Eliseo Lambert MD Primary Care Provider Reason for Visit * Reason Comments Hyperlipidemia Anxiety Encounter Details Date Type Department Care Team (Latest Contact Info) Description 01/08/2022 2:00 PM CDT Office Visit [facility] Medical [facility] at [address] [place] [address] Eliseo Lambert MD [address] [place] [address] [address] [facility] [address] [place] [address] Gastroesophageal reflux disease, unspecified whether esophagitis present (Primary Dx); Generalized anxiety disorder; Pure hypercholesterolemia; Moderate episode of recurrent major depressive disorder (HCC); Psychophysiological insomnia; Cystic acne vulgaris Social History Tobacco Use Types Packs/Day Years Used Date Smoking Tobacco: Every Day Cigarettes Smokeless Tobacco: Never Alcohol Use Standard Drinks/Week Comments No 0 (1 standard drink = 0.6 oz pur e alcohol) PHQ-2 Answer Date Recorded PHQ-2 Total Score (If total score is 3 or more points, staff should administer the PHQ-9) 3 01/08/2022 Comments No Sex and Gender Information Value Date Recorded Sex Assigned at Not on file 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 Gender Identity Not on file Sexual Orientation Not on file 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 Not on file Not on file documented as of this encounter Last Filed Vital Signs Vital Sign Reading Time Taken Comments Blood Pressure 115/75 01/08/2022 2:09 PM CDT Pulse 74 01/08/2022 2:09 PM CDT Temperature - - Respiratory Rate 16 01/08/2022 2:09 PM CDT Oxygen Saturation 100% 01/08/2022 2:09 PM CDT Inhaled Oxygen Concentration - - Weight 52.3 kg (115 lb 6.4 oz) 01/08/2022 2:09 P M CDT Height 156.2 cm (5' 1.5 ) 01/08/2022 2:09 PM CDT Body Mass Index 21.45 01/08/2022 2:09 PM CDT documented in this encounter Progress Notes * Eliseo Lambert MD - 01/08/2022 2:00 PM CDT Images from the original note were not included. Assessment/Plan Diagnoses and all orders for this visit: Gastroesophageal reflux disease, unspecified whether esophagitis present (Primary) Assessment & Plan: - recent diagnosis, significantly improved - currently [...] clothing that puts pressure on the stomach. Generalized anxiety disorder Assessment & Plan: - [...] Dr. Hill - continue with current medication Cystic acne vulgaris Assessment & Plan: - chronic, well controlled - used to follow with dermatology - she has used isotretinoin before - currently on Spirinolactone 50 mg daily - aware that medication can lower BP with the medication - continue current therapy Return in about 3 months (around 04/10/2022). Subjective/Objective Chief Complaint Patient presents with ??? Hyperlipidemia ??? Anxiety HPI Kristy Kapoor is a 46 y.o. female who is here for for known conditions of anxiety, depression, hyperlipidemia. Patient has recently quit her job and is got anyone that she be starting soon. Overall she has knows that her mental health is improved. She does follow-up with psychiatry and is currentlyon medications for depression as well as anxiety. She was treated with pantoprazole which was started on last visit after presenting with severe abdominal pain and was thought to have been secondary to acid reflux. Since I started on the pantoprazole she has noticed significant improvement with hersymptoms. She has also had about 3 lb of weight gain due to improved appetite. She is excited about her new job and is optimistic as currently to a better situation. Lab Results Component Value Date LDLCALC 74 09/26/2021 PHQ9 - Depression Screening tool questionnaire Over the last 2 weeks, how often have you been bothered by any of the following problems? Little Interest or Pleasure in Doing Things: Not at all Feeling Down, Depressed, or Hopeless: Nearly every day PHQ-2 Total Score (If total score is 3 or more points, staff should administer the PHQ-9): 3 Over the past 2 weeks, how often have you been bothered by any of the following problems? Little Interest or Pleasure in Doing Things: Not at all Feeling Down, Depressed, or Hopeless: Nearly every day PHQ-2 Total Score (If total score is 3 or more points, staff should administer the PHQ-9): 3 Interpretation of PHQ9 Total Score 1-4 = [...] of Systems Constitutional: Positive for appetite change (increased) and unexpected weight change (3 lbs weightgain). Negative for activity change and fatigue. Respiratory: Negative for cough, choking, shortness of [...] nervous/anxious. The patient is not hyperactive. Vitals: 01/08/22 1409 BP: 115/75 BP Location: Left arm Patient Position: Sitting Pulse: 74 Resp: 16 SpO2: 100% Weight: 52.3 kg (115 lb 6.4 oz) Height: 156.2 cm (5' 1.5 ) Wt Readings from Last 3 Encounters: 01/08/22 52.3 kg (115 lb 6.4 oz) 11/05/21 51.1 kg (112 lb 9.6 oz) 11/03/21 51.8 kg (114 lb 3.2 oz) Body mass index is 21.45 kg/m??. Physical Exam Vitals reviewed. Constitutional: General: She is not in acute distress. Appearance: She is not ill-appearing. Comments: Pleasant Cardiovascular: Rate and Rhythm: Normal rate and regular rhythm. Heart sounds: No murmur heard. Pulmonary: Effort: Pulmonary effort is normal. No respiratory distress. Breath sounds: No stridor. No wheezing or rhonchi. Abdominal: General: Abdomen is flat. There is no distension. Palpations: Abdomen is soft. There is no mass. Tenderness: There is abdominal tenderness (epigastric area). There is no right CVA tenderness, leftCVA tenderness, guarding or rebound. Hernia: No hernia is present. Musculoskeletal: Right lower leg: No edema. Left lower leg: No edema. Skin: Findings: No lesion or rash. Neurological: General: No focal deficit present. Mental Status: She is alert and oriented to person, place, and time. Motor: No weakness. Gait: Gait normal. Psychiatric: Attention and Perception: Attention normal. She is attentive. Mood and Affect: Mood normal. Mood is not anxious or depressed. Speech: Speech normal. Behavior: Behavior normal. Thought Content: Thought content normal. Eliseo Lambert MD January 13, 2022 11:12 AM Please note: Voice recognition software Associated Material Processing Direct was used dictate and transcribe this document. Cellulose Insulation Helper variances may occur. Despite proofreading, typographical errors may occur. documented in this encounter Miscellaneous Notes * Assessment & Plan Note - Eliseo Lambert MD - 01/13/2022 11:08 AM CDT Associated Problem(s): Cystic acne vulgaris - chronic, well controlled - used to follow with dermatology - she has used isotretinoin before - currently on Spirinolactone 50 mg daily - aware that medication can lower BP with the medication - continue current therapy * Assessment & Plan Note - Eliseo Lambert MD - 01/08/2022 2:44 PM CDT Associated Problem(s): Gastroesophageal reflux disease - recent diagnosis, significantly improved - currently [...] clothing that puts pressure on the stomach. * Assessment & Plan Note - Eliseo Lambert MD - 01/08/2022 2:37 PM CDT Associated Problem(s): Generalized anxiety disorder - [...] Plan Note - Eliseo Lambert MD - 01/08/2022 2:34 PM CDT Associated Problem(s): Psychophysiological insomnia - chronic, stable - trazodone 50 mg nightly PRN only - follows with psychiatry - Dr. Hill - continue with current medication * Assessment & Plan Note - Eliseo Lambert MD - 01/08/2022 2:33 PM CDT Associated Problem(s): Moderate episode of recurrent [...] Plan Note - Eliseo Lambert MD - 01/08/2022 2:32 PM CDT Associated Problem(s): Pure hypercholesterolemia - chronic, [...] reflux disease, unspecified whether esophagitis present- Primary Generalized anxiety disorder Pure hypercholesterolemia Moderate episode of recurrent major depressive disorder (HCC) Psychophysiological insomnia Persistent disorder of initiating or maintaining sleep Cystic acne vulgaris Other acne documented in this encounter Care Teams Boiler Riveter Relationship Specialty Start Date End Date Eliseo Lambert MD PCP - General Family Medicine 05/21/20 06/29/23 documented as of this encounter
--- OUTSIDE RECORDS SUMMARY | 2024-06-25 09:52 | XMS_ITS | Encounter Summary ---
Author Organization [facility] Address [address] [place] [address] Care Team Providers Care Antique Refinisher Name Role Phone Eliseo Lambert MD Primary Care Provider Encounter Details Date Type Department Care Team (Late st Contact Info) Description 09/02/2021 Telephone [facility] [place] [address] 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 Lambert being booked. GATHERER * Telephone Encounter - Merle Mcclendon MA - 09/02/2021 10:30 AM EGG GATHERER Kristy contacted the office and left a message she states she bent over and hurt her back last nightand she couldn't walk she had to crawl. I tried contacting Kristy to see about getting her scheduled for an appointment however I had to leave a message. GATHERER documented in this encounter Plan of Treatment Not on file documented as of this encounter Visit Diagnoses Not on filedocumented in this encounter Care Teams Antique Refinisher Relationship Specialty Start Date End Date Eliseo Lambert MD PCP - General Family Medicine 05/21/20 06/29/23 documented as of this encounter
--- OUTSIDE RECORDS SUMMARY | 2024-06-25 09:52 | XMS_ITS | Encounter Summary ---
Author Organization [facility] Address [address] [facility] [facility] [address] [place] [address] Care Team Providers Care Landscape Engineer Name Role Phone Eliseo Lambert MD Primary Care Provider Reason for Visit * Reason Comments abdominal pain Off and on; onset 5/ 5. Stabbing like pain. everything bothers stomach,unable to take meds. has had increased anxiety. Off work since Wednesday Encounter Details Date Type Department Care Team (Late Contact Info) Description 11/05/2021 12:15 PM CDT Office Visit [facility] [address] [place] [phone] Eliseo Lambert MD [address] [place] [address] [address] [place] [address] Abdominal pain (Primary Dx) Social History Tobacco Use Types Packs/Day Years Used Date Smoking Tobacco: Every Day Cigarettes Smokeless Tobacco: Never Alcohol Use Standard Drinks/Week Comments No 0 (1 standard drink = 0.6 oz pur e alcohol) PHQ-2 Answer Date Recorded PHQ-2 Total Score (If total score is 3 or more points, staff should administer the PHQ-9) 2 11/05/2021 Comments No Sex and Gender Information Value Date Recorded Sex Assigned at Not on file Legal Sex Female 1:17 AM DIRECTOR OF GOLF Gender Identity Not on file Sexual Orientation Not on file 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 Not on file Not on file documented as of this encounter Last Filed Vital Signs Vital Sign Reading Time Taken Comments Blood Pressure 131/84 11/05/2021 12:15 PM CDT Pulse 82 11/05/2021 12:15 PM CDT Temperature 36.6 ??C (97.9 ??F) 11/05/2021 12:15 PM C DT Respiratory Rate 16 11/05/2021 12:15 PM CDT Oxygen Saturation 95% 11/05/2021 12:15 PM CDT Inhaled Oxygen Concentration - - Weight 51.1 kg (112 lb 9.6 oz) 11/05/2021 12:15 PM CDT Height 156.2 cm (5' 1.5 ) 11/05/2021 12:15 PM CD T Body Mass Index 20.93 11/05/2021 12:15 PM CDT documented in this encounter Ordered Prescriptions Prescription Sig Dispense Quantity Refills Last Filled Start Date End Date pantoprazole DR (PROTONIX) 40 mg EC tabletIndications: Abdominal pain Take 1 tablet (40 mg total) by mouth daily 90 tablet 11/05/2021 02/24/2022 documented in this encounter Progress Notes * Eliseo Lambert MD - 11/05/2021 12:15 PM CDT Images from the original note were not included. Assessment/Plan Diagnoses and all orders for this visit: Abdominal pain (Primary) - POCT UA, AUTO W/O SCOPE - pantoprazole DR (PROTONIX) 40 mg EC tablet; Take 1 tablet (40 mg total) by mouth daily New, not well controlled No acute findings and not in acute distress Been off her Famotidine so suspect GERD vs stomach ulcer. Start PPI - pantoprazole 40mg daily for now and can transition to famotidine once symptoms improvedafter a month Follow up in 1 month Work letter was written for days she missed and to take the rest of the week off while she recovers. Return in about 1 month (around 12/06/2021). Subjective/Objective Chief Complaint Patient presents with ??? abdominal pain Off and on; onset 10/30. Stabbing like pain. everything bothers stomach,unable to take meds. has had increased anxiety. Off work since Wednesday HPI Kristy Kapoor is a 46 y.o. female who is here for abdominal pain, She has been off work since 11/03/2021. She was seen at the urgent care on 11/03/2021 and was diagnosed with nausea and GERD. Symptoms started about 4 days prior to that with stabbing like pain in her abdomen and some sweating. She kept working as it went away but got worse on Wednesday and was seen at urgent care as she needs an examination to be off from work. She has also noticed increased anxiety. She has had nausea with the pain but no vomiting, no chest pain or shortness of breath She has not been taking her pepcid for some timewhich she used to be om/ She is s/p cholecystectomy and has had an EGD in . She has also not been taking her Zofran that she has for nausea. PHQ9 - Depression Screening tool questionnaire Over the last 2 weeks, how often have you been bothered by any of the following problems? Little Interest or Pleasure in Doing Things: Several days Feeling Down, Depressed, or Hopeless: Several days PHQ-2 Total Score (If total score is 3 or more points, staff should administer the PHQ-9): 2 Over the past 2 weeks, how often have you been bothered by any of the following problems? Little Interest or Pleasure in Doing Things: Several days Feeling Down, Depressed, or Hopeless: Several days PHQ-2 Total Score (If total score is 3 or more points, staff should administer the PHQ-9): 2 Interpretation of PHQ9 Total Score 1-4 = [...] 05/30/2020 Review of Systems Constitutional: Negative for chills and fever. Respiratory: Negative for shortness of breath and wheezing. Cardiovascular: Negative for chest pain. Gastrointestinal: Positive for abdominal pain (intermittent, stabbing like), nausea and vomiting. Negative for anal bleeding, blood in stool, constipation, diarrhea and rectal pain. Skin: Negative for wound. Psychiatric/Behavioral: The patient is nervous/anxious (worse). Vitals: 11/05/21 1215 BP: 131/84 BP Location: Left arm Patient Position: Sitting Pulse: 82 Resp: 16 Temp: 36.6 ??C (97.9 ??F) TempSrc: Temporal SpO2: 95% Weight: 51.1 kg (112 lb 9.6 oz) Height: 156.2 cm (5' 1.5 ) Wt Readings from Last 3 Encounters: 11/05/21 51.1 kg (112 lb 9.6 oz) 11/03/21 51.8 kg (114 lb 3.2 oz) 09/26/21 55 kg (121 lb 3.2 oz) Body mass index is 20.93 kg/m??. Physical Exam Vitals reviewed. Constitutional: General: She is not in acute distress. Appearance: She is not ill-appearing. Cardiovascular: Rate and Rhythm: Normal rate. Pulmonary: Effort: Pulmonary effort is normal. No respiratory distress. Abdominal: General: Abdomen is flat. There is no distension. Palpations: Abdomen is soft. There is no mass. Tenderness: There is abdominal tenderness (epigastric area). There is no right CVA tenderness, leftCVA tenderness, guarding or rebound. Hernia: No hernia is present. Musculoskeletal: Right lower leg: No edema. Left lower leg: No edema. Skin: Findings: No lesion or rash. Neurological: Mental Status: She is alert. Gait: Gait normal. Eliseo Lambert MD November 10, 2021 5:40 AM Please note: Voice recognition software [employer] Direct was used dictate and transcribe this document. Career Education Teacher variances may occur. Despite proofreading, typographical errors may occur. documented in this encounter Plan of Treatment Not on file documented as of this encounter Procedures Procedure Name Priority Date/Time Associated Diagnosis Comments POCT URINALYSIS, AUTO W/O SCOPE Routine 11/05/2021 12:19 PM CDT Abdominal pain documented in this encounter Results * POCT UA, AUTO W/O SCOPE (11/05/2021 12:19 PM CDT) Color, Urine, POC Light Yellow Clarity, ur, POC Clear Clear Glucose, ur, POC Negative Negative mg/dL Bilirubin, ur, POC Negative Negative, Small, Moderate, Large Ketones, ur, POC Negative Negative Specific [place], POC 1.020 1.005 - 1.030 Blood, ur, POC Negative Negative pH, ur, POC 6.5 5.0 - 8.0 Protein, ur, POC Negative Negative Urobilinogen, Urine, POC 0.2 mg/dL Leukocytes, ur, POC Negative Negative Nitrite, ur, POC Negative Negative Appearance, fld Clear Clear Urine 11/05/2021 12:1 9 PM CDT Eliseo Lambert MD POINT OF CARE TEST MIKE ROMERO Final Result documented in this encounter Visit Diagnoses Diagnosis Abdominal pain- Primary Abdominal pain, unspecified site documented in this encounter Discontinued Medications Medication Sig Discontinue Reason Start Date End Da te famotidine (PEPCID) 40 mg tabletIndications:Heartb urn Take 1 tablet (40 mg total) by mouth daily 11/15/2020 11/05/2021 documented as of this encounter Care Teams Landscape Engineer Relationship Specialty Start Date End Date Eliseo Lambert MD PCP - General Family Medicine 05/21/20 06/29/23 documented as of this encounter
--- OUTSIDE RECORDS SUMMARY | 2024-06-25 09:52 | XMS_ITS | Encounter Summary ---
Author Organization [facility] Address [address] [place] [address] Care Team Providers Care Core Feeder Name Role Phone Eliseo Lambert MD Primary Care Provider Encounter Details Date Type Department Care Team (Late st Contact Info) Description 03/26/2022 2:00 PM CDT Lab [address] CKD (chronic kidney disease) stage 2, GFR 60-89 ml/min; Encounter for routine adult physical exam with abnormal findings Social History Tobacco Use Types Packs/Day Years Used Date Smoking Tobacco: Every Day Cigarettes Smokeless Tobacco: Never Alcohol Use Standard Drinks/Week Comments No 0 (1 standard drink = 0.6 oz pur e alcohol) PHQ-2 Answer Date Recorded PHQ-2 Total Score (If total score is 3 or more points, staff should administer the PHQ-9) 0 03/23/2022 Comments No Sex and Gender Information Value Date Recorded Sex Assigned at Not on file Legal Sex Female 1:17 AM CAFE ASSOCIATE Gender Identity Not on file Sexual Orientation Not on file 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 Not on file Not on file documented as of this encounter Miscellaneous Notes * Result Encounter Note - Alaina Santana NP - 03/30/2022 11:56 AM CDT Received lab results: Blood sugar: Lab Results Component Value Date GLUCOSE 95 03/26/2022 kidney numbers, liver numbers and electrolytes are all normal Thyroid level (if checked on labs: Lab Results Component Value Date TSH 2.51 03/26/2022 Blood count is normal, no sign of infection or anemia A1c (3 mo blood sugar average) (if checked on labs): Lab Results Component Value Date HGBA1C 5.3 03/27/2021 Triglycerides (fatty chol) normal <150, your results Lab Results Component Value Date TRIG 57 09/26/2021 HDL (good chol) normal >45 male and >55 female, your results Lab Results Component Value Date HDL 68 09/26/2021 LDL (bad chol) normal <100, your results: No results found for: LDL non-HDL (risk factor) normal <100, your result: Lab Results Component Value Date NONHDLCHOL 85 09/26/2021 documented in this encounter Plan of Treatment Not on file documented as of this encounter Procedures Procedure Name Priority Date/Time Associated Diagnosis Comments EGFR Routine 03/26/2022 2:02 PM CDT CKD (chronic kidney disease) stage 2, GFR 60-89 ml/min DIFFERENTIAL AUTO Routine 03/26/2022 2:0 2 PM CDT CKD (chronic kidney disease) stage 2, GFR 60-89 ml/min CBC WITH AUTO DIFFERENTIAL Routine 03/26/2022 2:02 PM CDT CKD (chronic kidney disease) stage 2, GFR 60-89 ml/min TSH Routine 03/26/2022 2:02 PM CDT CKD (chronic kidney disease) stage 2, GFR 60-89 ml/min Encounter for routine adult physical exam with abnormal findings BASIC METABOLIC PANEL Routine 03/26/2022 2:02 PM CDT CKD (chronic kidney disease) stage 2, GFR 60-89 ml/min documented in this encounter Results * eGFR (03/26/2022 2:02 PM CDT) eGFR 72 mL/min/1. 73 m2 [facility]) Comment: Interpretive Data Reference Interval Normal ?>/= [...] interpretive data was last reviewed 2021. Blood 03/26/2022 2:02 PM CDT 03/26/2022 3:39 PM CDT us Alaina Santana NP LAB BLOOD ORDERABLES Final Resul t [facility] ([place] [address] [facility] [place] [address] * Differential, auto (03/26/2022 2:02 PM CDT) Neutrophil abs 4.4 1.7 - 6.5 K/cumm [facility] ([place]) Imm gran abs 0.0 0.0 - 0.1 K/cumm [facility] ([place]) Lymphocyte abs 1.9 0.8 - 3.3 K/cumm [facility] ([place]) Monocyte abs 0.3 0.2 - 0.8 K/cumm [facility] ([place]) Eosinophil abs 0.1 0.0 - 0.5 K/cumm [facility] ([place]) Basophil abs 0.1 0.0 - 0.1 K/cumm [facility] ([place]) Neutrophil pct 64.2 % [facility] ([place]) Comment: Interpretive Data Percent cell count reference ranges are not reported, since discordance with absolute values may lead to misinterpretation of CBC data. Current Interpretive Data was last revised on 2017. Imm gran pct 0.1 % [facility] ([place]) Comment: Interpretive Data Percent cell count reference ranges are not reported, since discordance with absolute values may lead to misinterpretation of CBC data. Current Interpretive Data was last revised on 2017. Lymphocyte pct 27.8 % [facility] ([place]) Comment: Interpretive Data Percent cell count reference ranges are not reported, since discordance with absolute values may lead to misinterpretation of CBC data. Current Interpretive Data was last revised on 2017. Monocyte pct 5.0 % [facility] ([place]) Comment: Interpretive Data Percent cell count reference ranges are not reported, since discordance with absolute values may lead to misinterpretation of CBC data. Current Interpretive Data was last revised on 2017. Eosinophil pct 1.9 % [facility] ([place]) Comment: Interpretive Data Percent cell count reference ranges are not reported, since discordance with absolute values may lead to misinterpretation of CBC data. Current Interpretive Data was last revised on 2017. Basophil pct 1.0 % [facility] ([place]) Comment: Interpretive Data Percent cell count reference ranges are not reported, since discordance with absolute values may lead to misinterpretation of CBC data. Current Interpretive Data was last revised on 2017. Blood 03/26/2022 2:02 PM CDT 03/26/2022 3:39 PM CDT us Alaina Santana NP LAB BLOOD ORDERABLES Final Resul t [facility] ([place]) [address] [facility] [place] [address] * Basic metabolic panel (03/26/2022 2:02 PM CDT) Sodium 137 135 - 145 mmol/L [facility] ([place]) Potassium, pl 4.2 3.3 - 4.9 mmol/L [facility] ([place]) Chloride 99 97 - 110 mmol/L [facility] ([place]) CO2 26 22 - 32 mmol/L [facility] ([place]) Anion gap 11 2 - 15 mmol/L [facility] ([place]) BUN 12 8 - 25 mg/dL [facility] ([place]) Creatinine 0.97 0.60 - 1.10 mg/dL [facility] ([place]) Glucose 95 70 - 199 mg/dL [facility] ([place]) [...] interpretive data was last revised 2017. Calcium 9.5 8.5 - 10.3 mg/dL [facility] Blood 03/26/2022 2:02 PM CDT 03/26/2022 3:39 PM CDT Alaina Santana NP LAB BLOOD ORDERABLES Final Resul t [facility] ([place] [address] [facility] [place] [address] * (ABNORMAL) CBC with auto differential (03/26/2022 2:02 PM CDT) WBC 6.8 3.8 - 9.9 K/cumm [facility] ([place]) Hgb 12.9 11.9 - 15.5 g/dL [facility] ([place]) Hct 38.2 35.6 - 45.5 % [facility] ([place]) Plt 272 150 - 400 K/cumm [facility] ([place]) MPV 11.0 9.1 - 12.3 fL [facility] ([place]) RBC 3.94 3.90 - 5.20 M/cumm [facility] ([place]) MCV 97.0(H) 81.3 - 96.4 fL [facility] ([place]) MCH 32.7 27.1 - 33.3 pg [facility] ([place]) MCHC 33.8 32.3 - 35.7 g/dL [facility] ([place]) RDW CV 12.2 11.1 - 14.9 % [facility] ([place]) RDW SD 43.6 35.7 - 48.1 fL [facility] ([place]) NRBC abs 0.00 0.00 - 0.01 K/cumm [facility] ([place]) Blood 03/26/2022 2:02 PM CDT 03/26/2022 3:39 PM CDT Alaina Santana NP LAB BLOOD ORDERABLES Final Resul t Performing Organization Address City/[facility]/ZIP Co de Phone Number [facility] ([place]) [address] [facility] [place] [address] * TSH (03/26/2022 2:02 PM CDT) Thyroid Stimulating Hormone 2.51 0.30 - 4.20 mcIUnit/mL [facility] ([place]) Blood 03/26/2022 2:02 PM CDT 03/26/2022 3:39 PM CDT Alaina Santana NP LAB BLOOD ORDERABLES Final Resul t [facility] ([place]) [address] [facility] [place] [address] documented in this encounter Visit Diagnoses Diagnosis CKD (chronic kidney disease) stage 2, GFR 60-89 ml/min Chronic kidney disease, Stage II (mild) Encounter for routine adult physical exam with abnormal findings documented in this encounter Care Teams Core Feeder Relationship Specialty Start Date End Date Eliseo Lambert MD PCP - General Family Medicine 05/21/20 06/29/23 documented as of this encounter
--- OUTSIDE RECORDS SUMMARY | 2024-06-25 09:52 | XMS_ITS | Encounter Summary ---
Author Organization [facility] Address [address] [place] [address] Care Team Providers Care Machine Bander And Cellophaner Helper Name Role Phone Eliseo Lambret MD Primary Care Provider Reason for Visit * Reason Comments Discuss Previous Cervical Cancer Screeni ngs Patient states that she has HPV and would like to discuss it Encounter Details Date Type Department Care Team (Late st Contact Info) Description 03/23/2022 3:00 PM CDT Office Visit [facility] Primary Care at [address] [place] [address] Alaina Santana NP [address] [facility] [facility] [address] [place] [address] Encounter for routine adult physical exam with abnormal findings (Primary Dx); Need for influenza vaccination; CKD (chronic kidney disease) stage 2, GFR [...] on file 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 Gender Identity Not on file Sexual Orientation Not on file 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 Not on file Not on file Not on file documented as of this encounter Last Filed Vital Signs Vital Sign Reading Time Taken Comments Blood Pressure 110/72 03/23/2022 2:53 PM CDT Pulse 97 03/23/2022 2:53 PM CDT Temperature - - Respiratory Rate 14 03/23/2022 2:53 PM CDT Oxygen Saturation 98% 03/23/2022 2:53 PM CDT Inhaled Oxygen Concentration - - Weight 53.8 kg (118 lb 9.6 oz) 03/23/2022 2:53 P M CDT Height 156.2 cm (5' 1.5 ) 03/23/2022 2:53 PM CDT Body Mass Index 22.05 03/23/2022 2:53 PM CDT documented in this encounter Progress Notes * Alaina Santana, KINDERGARTNERS HELPER - 03/23/2022 3:00 PM CDT Images from the original note were not included. Subjective: Kristy Kapoor is a 46 y.o. female. Patient is being seen today for physical. Pt was here for pap, self scheduled, but had a negative pap last year. Pt states she had a positivepap in the past with pos. HPV about 9 years ago when she was with her daughter. However, Iwent over her last pap results with her which was negative for all HPV types. Pt was quite happy. Well Adult Physical: Patient here for a comprehensive physical exam.The patient reports no problems Do you take any herbs or supplements that were not prescribed by a doctor? no Other: NA Are you taking calcium supplements? no History: Follows with extrusion manager? No No results found for requested labs within last 720 hours. Patient Active Problem List Diagnosis Psychophysiological insomnia Generalized anxiety disorder Inflammatory polyarthropathy (CMS/HCC) (HCC) Moderate episode of recurrent major depressive disorder (HCC) Pure hypercholesterolemia Numbness and tingling of right arm PTSD (post-traumatic stress disorder) Cystic acne vulgaris Degenerative disc disease at L5-S1 level S/P laparoscopic cholecystectomy Alternating constipation and diarrhea Vitamin D deficiency CKD (chronic kidney disease) stage 2, GFR 60-89 ml/min Chronic RUQ pain S/P tubal ligation Gastroesophageal reflux disease Abnormal finding Need for influenza vaccination Encounter for routine adult physical exam with abnormal findings HOME MEDICATIONS : albuterol HFA (ProAir HFA) 90 mcg/actuation inhaler atorvastatin (LIPITOR) 20 mg tablet blood glucose diagnostic strip buPROPion XL (WELLBUTRIN XL) 300 mg 24 hr tablet cholecalciferol (VITAMIN D-3) 5,000 unit tablet cyclobenzaprine (FLEXERIL) 10 mg tablet ondansetron ODT (ZOFRAN-ODT) 4 mg disintegrating tablet OneTouch Verio Flex meter misc pantoprazole DR (PROTONIX) 40 mg EC tablet spironolactone (ALDACTONE) 50 mg tablet clonazePAM (KlonoPIN) 0.5 mg tablet traZODone (DESYREL) 50 mg tablet Allergies Allergen Reactions Guaifenesin Nr [Guaifenesin] Anaphylaxis Pravastatin Nausea only and Vomiting Reaction: Nausea, Vomiting, Sulfamethoxazole-Trimethoprim Hives Nitrofurantoin Hives and Unknown Oxybutynin Hives and Unknown Dextromethorphan Itching Itching Ibuprofen Nausea only Pseudoephedrine Palpitations Sulfa (Sulfonamide Antibiotics) Stomach upset Stomach/GI Upset Tramadol Other (See comments) Heart race Vicodin [Hydrocodone-Acetaminophen] Vomiting Yellow Dye Itching Itching BP 110/72 (BP Location: Left arm, Patient Position: Sitting) Pulse 97 Resp 14 Ht 156.2 cm (5'1.5 ) Wt 53.8 kg (118 lb 9.6 oz) SpO2 98% BMI 22.05 kg/m?? Review of Systems Constitutional: Negative for activity change, fatigue and fever. HENT: Negative for congestion, ear pain, postnasal drip, sinus pressure, sore throat and trouble swallowing. Eyes: Negative for redness and visual disturbance. Respiratory: Negative for cough, chest tightness, shortness of breath and wheezing. Cardiovascular: Negative for chest pain, palpitations and leg swelling. Gastrointestinal: Negative for abdominal pain, constipation, diarrhea, nausea and vomiting. Musculoskeletal: Negative for back pain and myalgias. Skin: Negative for rash. Neurological: Negative for headaches. Physical Exam Constitutional: General: She is not in acute distress. Appearance: She is well-developed. HENT: Head: Normocephalic. Right Ear: Tympanic membrane, ear canal and external ear normal. Left Ear: Tympanic membrane, ear canal and external ear normal. Mouth/Throat: Pharynx: No oropharyngeal exudate. Eyes: Conjunctiva/sclera: Conjunctivae normal. Neck: Thyroid: No thyromegaly. Cardiovascular: Rate and Rhythm: Normal rate and regular rhythm. Heart sounds: Normal heart sounds. No murmur heard. No friction rub. Pulmonary: Effort: Pulmonary effort is normal. No respiratory distress. Breath sounds: Normal breath sounds. No wheezing or rales. Abdominal: General: Bowel sounds are normal. There is no distension. Palpations: Abdomen is soft. There is no mass. Tenderness: There is no abdominal tenderness. There is no rebound. Hernia: No hernia is present. Musculoskeletal: Cervical back: Normal range of motion. Lymphadenopathy: Cervical: No cervical adenopathy. Skin: General: Skin is warm and dry. Neurological: Mental Status: She is alert and oriented to person, place, and time. Psychiatric: Behavior: Behavior normal. Thought Content: Thought content normal. Judgment: Judgment normal. Assessment/Plan Diagnoses and all orders for this visit: Encounter for routine adult physical exam with abnormal findings (Primary) Assessment & Plan: Patient Counseling: --Nutrition: Stressed importance of moderation in sodium/caffeine intake, saturated fat and cholesterol, caloric balance, sufficient intake of fresh fruits, vegetables, --Exercise: Stressed the importance of regular exercise. --Continue routine dental and vision visits --Immunizations reviewed and offered- updated influenza today --Discussed benefits of screening colonoscopy.- -utd --females- mammograms -utd -Routine labs/ screenings ordered Orders: - TSH; Future Need for influenza vaccination - Flu Vaccine Quad PF 6m+ IM - Fluarix / FluLaval / Fluzone CKD (chronic kidney disease) stage 2, GFR 60-89 ml/min Assessment & Plan: GFR 70 in September. Reviewed last labs. Will repeat BMP today Orders: - Basic metabolic panel; Future - CBC with auto differential; Future - TSH; Future Alaina Santana NP documented in this encounter Miscellaneous Notes * Assessment & Plan Note - Alaina Santana NP - 03/23/2022 8:42 PM CDT Associated Problem(s): CKD (chronic kidney disease) stage 2, GFR 60-89 ml/min GFR 70 in September. Reviewed last labs. Will repeat BMP today * Assessment & Plan Note - Alaina Santana NP - 03/23/2022 8:41 PM CDT Associated Problem(s): Encounter for routine adult physical exam with abnormal findings (Resolved 03/15/2023) Patient Counseling: --Nutrition: Stressed importance of moderation in sodium/caffeine intake, saturated fat and cholesterol, caloric balance, sufficient intake of fresh fruits, vegetables, --Exercise: Stressed the importance of regular exercise. --Continue routine dental and vision visits --Immunizations reviewed and offered- updated influenza today --Discussed benefits of screening colonoscopy.- -utd --females- mammograms -utd -Routine labs/ screenings ordered documented in this encounter Plan of Treatment Not on file documented as of this encounter Results * TSH (03/26/2022 2:02 PM CDT) Thyroid Stimulating Hormone 2.51 0.30 - 4.20 mcIUnit/mL [facility] ([facility]) Blood 03/26/2022 2:02 PM CDT 03/26/2022 3:39 PM CDT Alaina Santana NP LAB BLOOD ORDERABLES Final Resul t [facility] ([facility]) [address] [facility] Department [place] [address] * (ABNORMAL) CBC with auto differential (03/26/2022 2:02 PM CDT) WBC 6.8 3.8 - 9.9 K/cumm [facility] ([facility]) Hgb 12.9 11.9 - 15.5 g/dL [facility] ([facility]) Hct 38.2 35.6 - 45.5 % [facility] ([facility]) Plt 272 150 - 400 K/cumm [facility] ([facility]) MPV 11.0 9.1 - 12.3 fL [facility] ([facility]) RBC 3.94 3.90 - 5.20 M/cumm [facility] ([facility]) MCV 97.0(H) 81.3 - 96.4 fL [facility] ([facility]) MCH 32.7 27.1 - 33.3 pg [facility] ([facility]) MCHC 33.8 32.3 - 35.7 g/dL [facility] ([facility]) RDW CV 12.2 11.1 - 14.9 % [facility] ([facility]) RDW SD 43.6 35.7 - 48.1 fL [facility] ([facility]) NRBC abs 0.00 0.00 - 0.01 K/cumm [facility] ([facility]) Blood 03/26/2022 2:02 PM CDT 03/26/2022 3:39 PM CDT us Alaina Santana NP LAB BLOOD ORDERABLES Final Resul t [facility] ([place]) [address] [facility] Department [place] [address] * Basic metabolic panel (03/26/2022 2:02 PM CDT) Sodium 137 135 - 145 mmol/L [facility] ([facility]) Potassium, pl 4.2 3.3 - 4.9 mmol/L [facility] ([facility]) Chloride 99 97 - 110 mmol/L [facility] ([facility]) CO2 26 22 - 32 mmol/L [facility] ([facility]) Anion gap 11 2 - 15 mmol/L [facility] ([facility]) BUN 12 8 - 25 mg/dL [facility] ([facility]) Creatinine 0.97 0.60 - 1.10 mg/dL [facility] ([facility]) Glucose 95 70 - 199 mg/dL [facility] ([facility]) Comment: Interpretive Data Fasting glucose >/= [...] 2017. Calcium 9.5 8.5 - 10.3 mg/dL [facility] ([facility]) Blood 03/26/2022 2:02 PM CDT 03/26/2022 3:39 PM CDT Alaina Santana NP LAB BLOOD ORDERABLES Final Resul t [facility] ([facility]) [address] [facility] Department [place] [address] documented in this encounter Visit Diagnoses Diagnosis Encounter for routine adult physical exam with abnormal findings- Primary Need for influenza vaccination Need for prophylactic vaccination and inoculation against influenza CKD (chronic kidney disease) stage 2, GFR 60-89 ml/min Chronic kidney disease, Stage II (mild) documented in this encounter Discontinued Medications Medication Sig Discontinue Reason Start Date End Da te traZODone (DESYREL) 50 mg tablet 02/14/2021 03/23/2022 documented as of this encounter Orders Immunization/Injection Count Last Ordered Date First Ordered Date FLU VACCINE QUAD PF 6M+ IM - FLUARIX / FLULAVAL / FLUZONE- SYRINGE 1 03/23/2022 documented in this encounter Care Teams Machine Bander And Cellophaner Helper Relationship Specialty Start Date End Date Eliseo Lambert MD PCP - General Family Medicine 05/21/20 06/29/23 documented as of this encounter
--- OUTSIDE RECORDS SUMMARY | 2024-06-25 09:52 | XMS_ITS | Encounter Summary ---
Author Organization [facility] Address [address] [place] [address] Care Team Providers Care Police Stenographer Name Role Phone Eliseo Lambert MD Primary Care Provider Reason for Visit * Reason Comments Chronic Kidney Disease Encounter Details Date Type Department Care Team (Latest Contact Info) Description 09/26/2021 9:15 AM CDT Office Visit [facility] [address] [place] [address] Eliseo Lambert MD [address] [place] [address] [address] [place] [address] Pure hypercholesterolemia (Primary Dx); CKD (chronic kidney disease) stage 2, GFR 60-89 ml/min; Screen for colon cancer Social History Tobacco Use Types Packs/Day Years [...] on file 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 Gender Identity Not on file Sexual Orientation Not on file 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 Not on file Not on file documented as of this encounter Last Filed Vital Signs Vital Sign Reading Time Taken Comments Blood Pressure 114/66 09/26/2021 9:27 AM CDT Pulse 71 09/26/2021 9:27 AM CDT Temperature - - Respiratory Rate 12 09/26/2021 9:27 AM CDT Oxygen Saturation 99% 09/26/2021 9:27 AM CDT Inhaled Oxygen Concentration - - Weight 55 kg (121 lb 3.2 oz) 09/26/2021 9:27 AM CDT Height 156.2 cm (5' 1.5 ) 09/26/2021 9:27 AM CDT Body Mass Index 22.53 09/26/2021 9:27 AM CDT documented in this encounter Progress Notes * Eliseo Lambert MD - 09/26/2021 9:15 AM CDT Images from the original note were not included. Assessment/Plan Diagnoses and all orders for this visit: Pure hypercholesterolemia (Primary) Assessment & Plan: - chronic, well controlled - most recent LDL as shown below - has been on Atorvastatin 20 mg since 06/17 - recheck Lipid panel before next visit - most recent LDL as shown below, result shown below - continue with current therapy Lab Results Component Value Date LDLCALC 173 (H) 01/06/2021 Orders: - Renal function panel; Future - Lipid panel; Future CKD (chronic kidney disease) stage 2, GFR 60-89 ml/min Assessment & Plan: - chronic, stable - [...] 06/02/2021 AST 28 06/02/2021 ALT 9 06/02/2021 Orders: - Renal function panel; Future Screen for colon cancer Comments: due for colon cancer screening Orders: - Stool DNA - Cologuard; Future Return in about 4 months (around 01/26/2022). Subjective/Objective Chief Complaint Patient presents with ??? Chronic Kidney Disease HPI Kristy Kapoor is a 46 y.o. female who is here for neck pain, hypercholesterolemia, anxiety and depression. She follows up with psychiatry for mental health. She is due for lipid panel, Currently on Atorvastatin 20 mg daily, order placed. She has been compliant with medication use and with no side effect. She already did her breast mammogram. She is now working 2 pm to 9:30 pm. She is due for colon cancer screening. Discussed options, willing to do the cologuard kit. Order placed. She feels like her kidney function may be down, she feels low energy as well. Patient Care Team: Eliseo Lambert MD as PCP - General (Family Medicine) Labs: Lab Results Component Value Date CHOL 153 09/26/2021 TRIG 57 09/26/2021 HDL 68 09/26/2021 Lab Results Component Value Date LDLCALC 74 09/26/2021 Lab Results Component Value Date TSH 3.24 06/02/2021 Lab Results Component Value Date HGBA1C 5.3 03/27/2021 HGBA1C 5.3 05/30/2020 Review of Systems Constitutional: Positive for fatigue. Negative for activity change, appetite change and unexpected weight change. Respiratory: Negative for cough, choking, shortness of breath and wheezing. Cardiovascular: Negative for chest pain and palpitations. Gastrointestinal: Diarrhea: alternating. Nausea: intermittent. Genitourinary: Negative for difficulty urinating. Musculoskeletal: Negative for gait problem. Skin: Negative for rash and wound. Neurological: Negative for tremors, seizures, syncope and headaches. Psychiatric/Behavioral: Positive for dysphoric mood and sleep disturbance (affected due to work hours). Negative for agitation, behavioral problems, confusion, decreased concentration, hallucinations, self-injury and suicidal ideas. The patient is nervous/anxious. The patient is not hyperactive. Vitals: 09/26/21 0927 BP: 114/66 BP Location: Right arm Patient Position: Sitting Pulse: 71 Resp: 12 SpO2: 99% Weight: 55 kg (121 lb 3.2 oz) Height: 156.2 cm (5' 1.5 ) Wt Readings from Last 3 Encounters: 09/26/21 55 kg (121 lb 3.2 oz) 03/08/22 55.7 kg (122 lb 14.4 oz) 08/02/21 55.3 kg (122 lb) Body mass index is 22.53 kg/m??. Physical Exam Vitals reviewed. Constitutional: General: [...] not impulsive or inappropriate. Eliseo Lambert MD October 05, 2021 2:22 PM Please note: Voice recognition software [employer] Direct was used dictate and transcribe this document. [employer] variances may occur. Despite proofreading, typographical errors may occur. documented in this encounter Miscellaneous Notes * Assessment & Plan Note - Eliseo Lambert MD - 09/26/2021 10:17 AM CDT Associated Problem(s): CKD (chronic kidney [...] 06/02/2021 AST 28 06/02/2021 ALT 9 06/02/2021 * Assessment & Plan Note - Eliseo Lambert MD - 09/26/2021 9:59 AM CDT Associated Problem(s): Pure hypercholesterolemia - chronic, well controlled - most recent LDL as shown below - has been on Atorvastatin 20 mg since 06/17 - recheck Lipid panel before next visit - most recent LDL as shown below, result shown below - continue with current therapy Lab Results Component Value Date LDLCALC 173 (H) 01/06/2021 documented in this encounter Plan of Treatment Not on file documented as of this encounter Results * Lipid panel (09/26/2021 10:25 AM CDT) [facility] Cholesterol 153 30 - 199 mg/dL [facility] [...] on 2018. HDL 68 >=40 mg/dL [facility]) Comment: Interpretive Data Ages < or = [...] last revised on 2018. Chol/HDL ratio 2 [facility] ([facility]) Blood 09/26/2021 10:2 5 AM CDT 09/26/2021 1:25 PM CDT us Eliseo Lambert MD LAB BLOOD ORDERABLES Fi nal Result [facility] ([facility]) [address] [facility] Department [place] [address] * Renal function panel (09/26/2021 10:25 AM [...] BLOOD ORDERABLES Fi nal Result [facility] ([place]) [address] [facility] Department [place] [address] documented in this encounter Visit Diagnoses Diagnosis Pure hypercholesterolemia- Primary CKD (chronic kidney disease) stage 2, GFR 60-89 ml/min Chronic kidney disease, Stage II (mild) Screen for colon cancer Special screening for malignant neoplasms, colon documented in this encounter Care Teams Police Stenographer Relationship Specialty Start Date End Date Eliseo Lambert MD PCP - General Family Medicine 05/21/20 06/29/23 documented as of this encounter
--- OUTSIDE RECORDS SUMMARY | 2024-06-25 09:52 | XMS_ITS | Encounter Summary ---
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 Not on file Not on file documented as of this encounter Plan of Treatment Not on file documented as of this encounter Procedures Procedure Name Priority Date/Time Associated Diagnosis Comments URINE CULTURE Routine 09/02/2021 3:29 PM NEEDLE BAR MOLDER Urinary dribbling documented in this encounter Results * Urine culture Urine, clean voided (09/02/2021 3:29 PM NEEDLE BAR MOLDER) Report Final Report: Less than 100,000 colonies/mL (clinically insignificant growth based on current clinical standards) JANIE PULIDO Comment:Testing performed by : [facility] [place]., [address] Organism (CLINICALLY INSIGNIFICANT GROWTH JANIE Urine, clean voided 09/02/2021 3:29 PM NEEDLE BAR MOLDER 09/02/2021 10:43 PM NEEDLE BAR MOLDER Narrative JANIE PULIDO - 09/04/2021 7:40 AM NEEDLE BAR MOLDER Testing performed by [facility] ([phone]) Kerri Silvestre OCCUPATIONAL HYGIENIST LAB MICROBIOLOGY - GENERAL ORDERABLES Final Result JANIE [id number] Department [place] [address] documented in this encounter Visit Diagnoses Diagnosis Urinary dribbling documented in this encounter Care Teams Special Projects Manager Relationship Specialty Start Date End Date Eliseo Lambert MD PCP - General Family Medicine 05/21/20 06/29/23 documented as of this encounter
--- OUTSIDE RECORDS SUMMARY | 2024-06-25 09:53 | XMS_ITS | Encounter Summary ---
Author Organization [facility] Medical [facility] Address [address] [place] [id number] Care Team Providers Care Pearl Glue Drier Name Role Phone Eliseo Lambert MD Primary Care Provider Reason for Visit * Reason Comments COVID-19 EVALUATION sx onset last Wednesday , patient had negative COVID on Wednesday, declines COVID swab today. C/o cough and wheezing. Patient vomited once yesterday. Not vaccinated; had COVID in December Encounter Details Date Type Department Care Team (Late st Contact Info) Description 04/17/2021 5:30 PM CDT Office Visit [facility] [address] [place] [address] Corinne Baxter, BONNIE [address] [address] Bronchitis (Primary Dx) Social History Tobacco Use Types Packs/Day Years Used Date Smoking Tobacco: Every Day Cigarettes Smokeless Tobacco: Never Alcohol Use Standard Drinks/Week Comments No 0 (1 standard drink = 0.6 oz pur e alcohol) PHQ-2 Answer Date Recorded PHQ-2 Total Score (If total score is 3 or more points, staff should administer the PHQ-9) 2 03/27/2021 Comments No Sex and Gender Information Value Date Recorded Sex Assigned at Not on file 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 Gender Identity Not on file Sexual Orientation Not on file 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 Not on file Not on file documented as of this encounter Last Filed Vital Signs Vital Sign Reading Time Taken Comments Blood Pressure 104/64 04/17/2021 5:40 PM CDT Pulse 67 04/17/2021 5:40 PM CDT Temperature 37.1 ??C (98.7 ??F) 04/17/2021 5:40 PM CD T Respiratory Rate 14 04/17/2021 5:40 PM CDT Oxygen Saturation 97% 04/17/2021 5:40 PM CDT Inhaled Oxygen Concentration - - Weight 57 kg (125 lb 9.6 oz) 04/17/2021 5:40 PM CDT Height 156.2 cm (5' 1.5 ) 04/17/2021 5:40 PM CDT Body Mass Index 23.35 04/17/2021 5:40 PM CDT documented in this encounter Patient Instructions * Patient Instructions* Corinne Baxter NP - 04/17/2021 5:30 PM CDT Images from the original note were not included. Patient Education Acute Bronchitis RESPONDER: Acute bronchitis is swelling and irritation in the air passages of your lungs. This irritation may cause you to cough or have other breathing problems. Acute bronchitis often starts because of another illness, such as a cold or the flu. The illness spreads from your nose and throat to your windpipeand airways. Bronchitis is often called a chest cold. Acute bronchitis lasts about 3 to 6 weeks andis usually not a serious illness. Your cough can last for several weeks. You may have any of the following symptoms: ?? A cough with sputum that may be clear, yellow, or green ?? Feeling more tired than usual, and body aches ?? A fever and chills ?? Wheezing when you breathe ?? A tight chest or pain when you breathe or cough Seek care immediately if: ?? You cough up blood. ?? Your lips or fingernails turn blue. ?? You feel like you are not getting enough air when you breathe. Contact your healthcare provider if: ?? You have a fever. ?? Your breathing problems do not go away or get worse. ?? Your cough does not get better within 4 weeks. ?? You have questions or concerns about your condition or care. Self-care: ?? Get more rest. Rest helps your body to heal. Slowly start to do more each day. Rest when you feel it is needed. ?? Avoid irritants in the air. Avoid chemicals, fumes, and dust. Wear a face mask if you must work around dust or fumes. Stay inside on days when air pollution levels are high. If you have allergies,stay inside when pollen counts are high. Do not use aerosol products, such as spray-on deodorant, bug spray, and hair spray. ?? Do not smoke or be around others who smoke. Nicotine and other chemicals in cigarettes and cigars damages the cilia that move mucus out of your lungs. Ask your healthcare provider for information if you currently smoke and need help to quit. E-cigarettes or smokeless tobacco still contain nicotine. Talk to your healthcare provider before you use these products. ?? Drink liquids as directed. Liquids help keep your air passages moist and help you cough up mucus. You may need to drink more liquids when you have acute bronchitis. Ask how much liquid to drink each day and which liquids are best for you. ?? Use a humidifier or vaporizer. Use a cool mist humidifier or a vaporizer to increase air moisture in your home. This may make it easier for you to breathe and help decrease your cough. Prevent acute bronchitis by doing the following: ?? Get the vaccinations you need. Ask your healthcare provider if you should get vaccinated againstthe flu or pneumonia. ?? Prevent the spread of germs. You can decrease your risk of acute bronchitis and other illnesses by doing the following: ?? Wash your hands often with soap and water. Carry germ-killing hand lotion or gel with you. You can use the lotion or gel to clean your hands when soap and water are not available. ?? Do not touch your eyes, nose, or mouth unless you have washed your hands first. ?? Always cover your mouth when you cough to prevent the spread of germs. It is best to cough into a tissue or your shirt sleeve instead of into your hand. Ask those around you cover their mouths when they cough. ?? Try to avoid people who have a cold or the flu. If you are sick, stay away from others as much as possible. Medicines: Your healthcare provider may give you any of the following: ?? Ibuprofen or acetaminophen are medicines that help lower your fever. They are available without a doctor's order. Ask your healthcare provider which medicine is right for you. Ask how much to takeand how often to take it. Follow directions. These medicines can cause stomach bleeding if not taken correctly. Ibuprofen can cause kidney damage. Do not take ibuprofen if you have kidney disease, anulcer, or allergies to aspirin. Acetaminophen can cause liver damage. Do not take more than 4,000 milligrams in 24 hours. ?? Decongestants help loosen mucus in your lungs and make it easier to cough up. This can help you breathe easier. ?? Cough suppressants decrease your urge to cough. If your cough produces mucus, do not take a cough suppressant unless your healthcare provider tells you to. Your healthcare provider may suggest that you take a cough suppressant at night so you can rest. ?? Inhalers may be given. Your healthcare provider may give you one or more inhalers to help you breathe easier and cough less. An inhaler gives your medicine to open your airways. Ask your healthcare provider to show you how to use your inhaler correctly. Follow up with your healthcare provider as directed: Write down questions you have so you will remember to ask them during your follow-up visits. ?? 2017 [employer] Information is for End User's use only and may not be sold, redistributed or otherwise used for commercial purposes. All illustrations and images included in CareNotes?? are the copyrighted property of [employer], [employer] or [employer]. The above information is an sld educational aide only. It is not intended as medical advice for individual conditions or treatments. Talk to your doctor, nurse or pharmacist before following any medical regimen to see if it is safe and effective for you. documented in this encounter Ordered Prescriptions Prescription Sig Dispense Quantity Refills Last Filled Start Date End Date albuterol HFA (ProAir HFA) 90 mcg/actuation inhalerIndications :Bronchitis Inhale 2 puffs every 4 (four) hours as needed for wheezing or shortness of breath 8.5 g 04/17/2021 azithromycin (ZITHROMAX) 500 mg tabletIndications: Bronchitis Take 1 tablet (500 mg total) by mouth daily for 5 days 5 tablet 04/17/2021 documented in this encounter Progress Notes * Corinne Baxter NP - 04/17/2021 5:30 PM CDT Images from the original note were not included. Subjective/Objective Patient: Kristy Kapoor is a 45 y.o. female followed by Eliseo Lambert MD Chief Complaint Patient presents with ??? COVID-19 EVALUATION sx onset last Wednesday, patient had negative COVID on Wednesday, declines COVID swab today. C/o cough and wheezing. Patient vomited once yesterday. Not vaccinated; had COVID in December Kristy Kapoor presents to clinic with c/o vomiting (x1 episode yesterday), cough, nausea, wheezing x 6 days. Patient states that she believes episode of emesis was 'unrelated' to other symptoms. States she has history of asthma (adolescent) and previously had inhaler. Requesting refill. History significant to COVID includes: CKD. Denies known exposure to COVID-19. Denies COVID inoculation. Reports having previous history of COVID diagnosis December 2020 Attempted nothing OTC prior to arrival for symptom alleviation. Denies the following: GI symptoms: diarrhea, abdominal pain Respiratory symptoms: shortness of breath, chest discomfort, rhinorrhea, congestion, sore throat Generalized symptoms of infection: fever, excessive fatigue, generalized malaise, headache, ear ache Review of Systems Constitutional: Negative for chills and fever. HENT: Negative for congestion, ear pain, rhinorrhea, sinus pressure, sinus pain, sneezing and sore throat. Eyes: Negative. Respiratory: Positive for cough and wheezing. Negative for chest tightness and shortness of breath. Cardiovascular: Negative for chest pain. Gastrointestinal: Positive for nausea and vomiting. Negative for constipation and diarrhea. Endocrine: Negative. Genitourinary: Negative. Musculoskeletal: Negative for arthralgias and myalgias. Skin: Negative. Allergic/Immunologic: Negative for environmental allergies. Neurological: Negative for headaches. Hematological: Negative for adenopathy. Psychiatric/Behavioral: Negative. Physical Exam Vitals and nursing note reviewed. Constitutional: Appearance: Normal appearance. She is not ill-appearing. HENT: Head: Normocephalic and atraumatic. Right Ear: Tympanic membrane, ear canal and external ear normal. Left Ear: Tympanic membrane, ear canal and external ear normal. Nose: No congestion or rhinorrhea. Mouth/Throat: Mouth: Mucous membranes are moist. Pharynx: Posterior oropharyngeal erythema present. Cardiovascular: Rate and Rhythm: Normal rate and regular rhythm. Heart sounds: Normal heart sounds. Pulmonary: Effort: Pulmonary effort is normal. Breath sounds: Examination of the right-upper field reveals wheezing. Examination of the left-upperfield reveals wheezing. Wheezing present. Comments: Wheezy dry cough. Abdominal: General: Abdomen is flat. Bowel sounds are increased. Palpations: Abdomen is soft. Musculoskeletal: General: Normal range of motion. Cervical back: Neck supple. Skin: General: Skin is warm and dry. Neurological: General: No focal deficit present. Mental Status: She is alert and oriented to person, place, and time. Psychiatric: Mood and Affect: Mood normal. Behavior: Behavior normal. Vitals: 04/17/21 1740 BP: 104/64 BP Location: Left arm Patient Position: Sitting Pulse: 67 Resp: 14 Temp: 37.1 ??C (98.7 ??F) TempSrc: Oral SpO2: 97% Weight: 57 kg (125 lb 9.6 oz) Height: 156.2 cm (5' 1.5 ) Social History Tobacco Use Smoking Status Current Every Day Smoker ??? Packs/day: 0.15 Smokeless Tobacco Never Used Assessment/Plan Diagnoses and all orders for this visit: Bronchitis (Primary) - POCT influenza A/B - azithromycin (ZITHROMAX) 500 mg tablet; Take 1 tablet (500 mg total) by mouth daily for 5 days - albuterol HFA (ProAir HFA) 90 mcg/actuation inhaler; Inhale 2 puffs every 4 (four) hours as needed for wheezing or shortness of breath Orders Placed This Encounter Procedures ??? POCT influenza A/B Results for orders placed or performed in visit on 04/17/21 POCT influenza A/B Result Value Ref Range Rapid Influenza A Ag Negative Negative, Invalid Rapid Influenza B Ag Negative Negative, Invalid # acute bronchitis --start Azithromycin and albuterol --flu swab negative, refused COVID --discussed differences and similarities between COVID-19 and acute URI. --OTC supportive therapies including Zyrtec, Claritin wwo pseudoephedrine, pending symptoms --discussed etiology of bronchitis and typical duration of symptoms --Tylenol and/or Motrin for pain/fever --ED presentation with one or more of the following symptoms: fever uncontrolled with antipyretics,shortness of breath, chest discomfort, uncontrolled n/v/d --f/u with PCP upon completion of abx if symptoms do not improve Patient Instructions: Patient Education Acute Bronchitis RESPONDER: Acute bronchitis is swelling and irritation in the air passages of your lungs. This irritation may cause you to cough or have other breathing problems. Acute bronchitis often starts because of another illness, such as a cold or the flu. The illness spreads from your nose and throat to your windpipeand airways. Bronchitis is often called a chest cold. Acute bronchitis lasts about 3 to 6 weeks andis usually not a serious illness. Your cough can last for several weeks. You may have any of the following symptoms: ?? A cough with sputum that may be clear, yellow, or green ?? Feeling more tired than usual, and body aches ?? A fever and chills ?? Wheezing when you breathe ?? A tight chest or pain when you breathe or cough Seek care immediately if: ?? You cough up blood. ?? Your lips or fingernails turn blue. ?? You feel like you are not getting enough air when you breathe. Contact your healthcare provider if: ?? You have a fever. ?? Your breathing problems do not go away or get worse. ?? Your cough does not get better within 4 weeks. ?? You have questions or concerns about your condition or care. Self-care: ?? Get more rest. Rest helps your body to heal. Slowly start to do more each day. Rest when you feel it is needed. ?? Avoid irritants in the air. Avoid chemicals, fumes, and dust. Wear a face mask if you must work around dust or fumes. Stay inside on days when air pollution levels are high. If you have allergies,stay inside when pollen counts are high. Do not use aerosol products, such as spray-on deodorant, bug spray, and hair spray. ?? Do not smoke or be around others who smoke. Nicotine and other chemicals in cigarettes and cigars damages the cilia that move mucus out of your lungs. Ask your healthcare provider for information if you currently smoke and need help to quit. E-cigarettes or smokeless tobacco still contain nicotine. Talk to your healthcare provider before you use these products. ?? Drink liquids as directed. Liquids help keep your air passages moist and help you cough up mucus. You may need to drink more liquids when you have acute bronchitis. Ask how much liquid to drink each day and which liquids are best for you. ?? Use a humidifier or vaporizer. Use a cool mist humidifier or a vaporizer to increase air moisture in your home. This may make it easier for you to breathe and help decrease your cough. Prevent acute bronchitis by doing the following: ?? Get the vaccinations you need. Ask your healthcare provider if you should get vaccinated againstthe flu or pneumonia. ?? Prevent the spread of germs. You can decrease your risk of acute bronchitis and other illnesses by doing the following: ?? Wash your hands often with soap and water. Carry germ-killing hand lotion or gel with you. You can use the lotion or gel to clean your hands when soap and water are not available. ?? Do not touch your eyes, nose, or mouth unless you have washed your hands first. ?? Always cover your mouth when you cough to prevent the spread of germs. It is best to cough into a tissue or your shirt sleeve instead of into your hand. Ask those around you cover their mouths when they cough. ?? Try to avoid people who have a cold or the flu. If you are sick, stay away from others as much as possible. Medicines: Your healthcare provider may give you any of the following: ?? Ibuprofen or acetaminophen are medicines that help lower your fever. They are available without a doctor's order. Ask your healthcare provider which medicine is right for you. Ask how much to takeand how often to take it. Follow directions. These medicines can cause stomach bleeding if not taken correctly. Ibuprofen can cause kidney damage. Do not take ibuprofen if you have kidney disease, anulcer, or allergies to aspirin. Acetaminophen can cause liver damage. Do not take more than 4,000 milligrams in 24 hours. ?? Decongestants help loosen mucus in your lungs and make it easier to cough up. This can help you breathe easier. ?? Cough suppressants decrease your urge to cough. If your cough produces mucus, do not take a cough suppressant unless your healthcare provider tells you to. Your healthcare provider may suggest that you take a cough suppressant at night so you can rest. ?? Inhalers may be given. Your healthcare provider may give you one or more inhalers to help you breathe easier and cough less. An inhaler gives your medicine to open your airways. Ask your healthcare provider to show you how to use your inhaler correctly. Follow up with your healthcare provider as directed: Write down questions you have so you will remember to ask them during your follow-up visits. ?? 2017 [employer] Information is for End User's use only and may not be sold, redistributed or otherwise used for commercial purposes. All illustrations and images included in CareNotes?? are the copyrighted property of [employer]. or [employer]. The above information is an sld educational aide only. It is not intended as medical advice for individual conditions or treatments. Talk to your doctor, nurse or pharmacist before following any medical regimen to see if it is safe and effective for you. Brief: Treatment plan including expectations, follow up, and return precautions discussed with patient/parent, verbalizes understanding. Medication dosage, use, and potential adverse reactions discussed with patient/parent. Advised to follow up with PCP if symptoms do not resolve as expected or sooner if condition worsens. Signs/symptoms warranting ER evaluation reviewed. Patient and/or guardian was given an opportunity to ask questions, questions answered. ??? Patient was wearing the following PPE: mask. ??? Provider wearing the following PPE: mask, gown, gloves, face shield. Corinne Baxter NP documented in this encounter Plan of Treatment Not on file documented as of this encounter Procedures Procedure Name Priority Date/Time Associated Diagnosis Comments POCT INFLUENZA A/B Routine 04/17/2021 6: 06 PM CDT Bronchitis documented in this encounter Results * POCT influenza A/B (04/17/2021 6:06 PM CDT) Rapid Influenza A Ag Negative Negative, Invalid Rapid Influenza B Ag Negative Negative, Invalid Nasopharyngeal 04/17/2021 6: 06 PM CDT us Corinne Baxter NP POINT OF CARE TEST ORDERABL ES Final Result documented in this encounter Visit Diagnoses Diagnosis Bronchitis- Primary Bronchitis, not specified as acute or chronic documented in this encounter Care Teams Pearl Glue Drier Relationship Specialty Start Date End Date Eliseo Lambert MD PCP - General Family Medicine 05/21/20 06/29/23 documented as of this encounter
--- OUTSIDE RECORDS SUMMARY | 2024-06-25 09:53 | XMS_ITS | Encounter Summary ---
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 No diabetes or prediabetes at this time. Normal liver enzymes as well. Overall reassuring results. Recommend the following to keep a steady blood glucose - Eat small meals every 3 to 4 hours throughout the day, rather than 3 large meals per day. Avoid foods high in saturated fats or trans fats. Reduce or eliminate processed and refined sugars from your diet. Choose complex carbohydrates over simple carbohydrates. Reduce or eliminate alcoholic drinks, and never mix alcohol with sugar-filled mixers, Eat lean protein. documented in this encounter Plan of Treatment Not on file documented as of this encounter Procedures Procedure Name Priority Date/Time Associated Diagnosis Comments EGFR Routine 03/27/2021 1:46 PM CDT Hypoglycemic reaction HEMOGLOBIN A1C Routine 03/27/2021 1:46 PM CDT Hypoglycemic reaction COMPREHENSIVE METABOLIC PANEL Routine 03/27/2021 1:46 PM CDT Hypoglycemic reaction documented in this encounter Results * eGFR (03/27/2021 1:46 PM CDT) eGFR 66 mL/min/1.7 3 m2 [facility] ([facility]) Comment: Interpretive Data [...] interpretive data was last reviewed 2020 Blood 03/27/2021 1:46 PM CDT 03/27/2021 3:15 PM CDT Eliseo Lambert MD LAB BLOOD ORDERABLES nal Result Performing Organization Address [facility] Co de Phone Number [facility] ([facility]) [address] [facility] [place] [address] * Hemoglobin A1c (03/27/2021 1:46 PM CDT) Hgb A1C 5.3 4.0 - 5.6 % [facility] ([facility]) Estimated Average Glucose 105 mg/dL [facility] ([facility]) Comment: The ADA recommends reporting an estimated Average Glucose (eAG) with all Hemoglobin A1c results using the equation derived from a study of 507 normal and diabetic adults. ??Minority populations were underrepresented and children were not included. ?? (Diabetes Care 31:4126-2827, 2008). ??The eAG is not equivalent to a fasting glucose. Blood 03/27/2021 1:46 PM CDT 03/27/2021 3:15 PM CDT Eliseo Lambert MD LAB BLOOD ORDERABLES nal Result Performing Organization Address [facility] Co de Phone Number [facility] ([facility]) [address] [facility] [place] [address] * Comprehensive metabolic panel (03/27/2021 1:46 PM CDT) Sodium 139 135 - 145 mmol/L [facility] ([facility]) Potassium, pl 4.0 3.3 - 4.9 mmol/L [facility] ([facility]) Chloride 102 97 - 110 mmol/L [facility] ([facility]) CO2 28 22 - 32 mmol/L [facility] ([facility]) Anion gap 9 2 - 15 mmol/L [facility] ([facility]) BUN 9 8 - 25 mg/dL [facility] ([facility]) Creatinine 1.01 0.60 - 1.10 mg/dL [facility] ([facility]) Glucose 96 70 - 199 mg/dL [facility] ([facility]) [...] 2017. Calcium 9.5 8.5 - 10.3 mg/dL [facility] ([facility]) Bilirubin, total 0.3 0.1 - 1.2 mg/dL [facility] ([facility]) Protein, pl 8.0 6.5 - 8.5 g/dL [facility] ([facility]) Albumin 4.8 3.5 - 5.0 g/dL [facility] ([facility]) Alk phos 97 40 - 130 Units/L [facility] ([facility]) ALT 10 7 - 45 Units/L [facility] ([facility]) AST 20 10 - 45 Units/L [facility] ([facility]) Blood 03/27/2021 1:46 PM CDT 03/27/2021 3:15 PM CDT us Eliseo Lambert MD LAB BLOOD ORDERABLES Fi nal Result [facility] ([facility]) [address] [facility] Department of Laboratories [place], [place] [id number] documented in this encounter Visit Diagnoses Diagnosis Hypoglycemic reaction Hypoglycemia, unspecified documented in this encounter Care Teams Hand Carver Relationship Specialty Start Date End Date Eliseo Lambert MD PCP - General Family Medicine 05/21/20 06/29/23 documented as of this encounter
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
--- OUTSIDE RECORDS SUMMARY | 2024-06-25 09:54 | XMS_ITS | Encounter Summary ---
Author Organization [facility] Address [address] [place] [id number] Care Team Providers Care Hotel Valet Attendant Name Role Phone Eliseo Lambert MD Primary Care Provider Reason for Visit * Reason Comments Urinary Problem Frequency, odor, manfred k pain x3 days Encounter Details Date Type Department Care Team (Late st Contact Info) Description 01/02/2021 4:00 PM CDT Office Visit [facility] [address] [place] [id number] Connie Moran, BONNIE [address] [facility] [place] [address] UTI symptoms (Primary Dx) Social History Tobacco Use Types Packs/Day Years Used Date Smoking Tobacco: Every Day Cigarettes Smokeless Tobacco: Never Alcohol Use Standard Drinks/Week Comments No 0 (1 standard drink = 0.6 oz pur e alcohol) PHQ-2 Answer Date Recorded PHQ-2 Total Score (If total score is 3 or more points, staff should administer the PHQ-9) 2 12/27/2020 Comments No Sex and Gender Information Value Date Recorded Sex Assigned at Not on file 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 Gender Identity Not on file Sexual Orientation Not on file 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 Not on file Not on file documented as of this encounter Last Filed Vital Signs Vital Sign Reading Time Taken Comments Blood Pressure 110/82 01/02/2021 3:53 PM CDT Pulse 96 01/02/2021 3:53 PM CDT Temperature 36.7 ??C (98 ??F) 01/02/2021 3:53 PM CDT Respiratory Rate 16 01/02/2021 3:53 PM CDT Oxygen Saturation 98% 01/02/2021 3:53 PM CDT Inhaled Oxygen Concentration - - Weight 57 kg (125 lb 9.6 oz) 01/02/2021 3:53 PM CDT Height 156.2 cm (5' 1.5 ) 01/02/2021 3:53 PM CDT Body Mass Index 23.35 01/02/2021 3:53 PM CDT documented in this encounter Patient Instructions * Patient Instructions* Connie Moran NP - 01/02/2021 4:00 PM CDT Follow up with PCP regarding abdominal pain. documented in this encounter Progress Notes * Connie Moran NP - 01/02/2021 4:00 PM CDT Images from the original note were not included. Subjective/Objective Patient ID: Kristy Kapoor is a 45 y.o. female. Chief Complaint Urinary Problem (Frequency, odor, back pain x3 days) UTI This is a new problem. The current episode started in the past 7 days (3 days). The problem has been gradually worsening. The quality of the pain is described as aching (RUQ). The pain is at a severity of 6/10. The patient is experiencing no pain. She is not sexually active. Associated symptoms include flank pain (aching), frequency, nausea and urgency. Pertinent negatives include no chills, discharge, hematuria, hesitancy, possible or vomiting. She has tried increased fluids for the symptoms. The treatment provided no relief. Review of Systems Constitutional: Positive for appetite change (decreased) and fatigue. Negative for chills and fever. HENT: Negative for congestion, ear pain, postnasal drip, rhinorrhea, sore throat and trouble swallowing. Eyes: Negative for pain, discharge, redness and itching. Respiratory: Negative for chest tightness, shortness of breath and wheezing. Cardiovascular: Negative for chest pain and leg swelling. Gastrointestinal: Positive for abdominal pain (RUQ) and nausea. Negative for constipation, diarrheaand vomiting. Genitourinary: Positive for flank pain (aching), frequency and urgency. Negative for difficulty urinating, dysuria, hematuria and hesitancy. Musculoskeletal: Positive for myalgias. Negative for back pain and neck pain. Skin: Negative for rash and wound. Allergic/Immunologic: Negative for environmental allergies and food allergies. Neurological: Negative for dizziness, weakness and headaches. Physical Exam Vitals and nursing note reviewed. Constitutional: General: She is awake. Appearance: Normal appearance. She is well-developed, well-groomed and normal weight. HENT: Head: Normocephalic and atraumatic. Right Ear: External ear normal. Left Ear: External ear normal. Nose: Nose normal. Mouth/Throat: Lips: [place]. Mouth: Mucous membranes are moist. Eyes: General: Lids are normal. Conjunctiva/sclera: Conjunctivae normal. Pupils: Pupils are equal, round, and reactive to light. Cardiovascular: Rate and Rhythm: Normal rate and regular rhythm. Pulmonary: Effort: Pulmonary effort is normal. Breath sounds: Normal breath sounds. No wheezing. Abdominal: General: Bowel sounds are normal. There is no distension. Palpations: Abdomen is soft. Tenderness: There is abdominal tenderness (mild) in the right upper quadrant, right lower quadrant and left lower quadrant. There is no right CVA tenderness, left CVA tenderness or guarding. Musculoskeletal: General: Normal range of motion. Cervical back: Normal range of motion and neck supple. Skin: General: Skin is warm and dry. Capillary Refill: Capillary refill takes less than 2 seconds. Neurological: Mental Status: She is alert and oriented to person, place, and time. Psychiatric: Behavior: Behavior normal. Behavior is cooperative. BP 110/82 (BP Location: Right arm, Patient Position: Sitting) Pulse 96 Temp 36.7 ??C (98 ??F) (Temporal) Resp 16 Ht 156.2 cm (5' 1.5 ) Wt 57 kg (125 lb 9.6 oz) SpO2 98% BMI 23.35 kg/m?? Assessment/Plan Diagnoses and all orders for this visit: UTI symptoms (Primary) - POCT urinalysis dipstick - Urine culture Urine, clean voided; Future Results for orders placed or performed in visit on 01/02/21 POCT urinalysis dipstick Result Value Ref Range Color, Urine, POC Dark Yellow Clarity, ur, POC Clear Clear Glucose, ur, POC Negative Negative mg/dL Bilirubin, ur, POC Negative Negative, Small, Moderate, Large Ketones, ur, POC Negative Negative Specific [place], POC 1.030 1.005 - 1.030 Blood, ur, POC Negative Negative pH, ur, POC 6.5 5.0 - 8.0 Protein, ur, POC Trace (A) Negative Urobilinogen, urine, POC 0.2 0.2 - 1.0 mg/dL Nitrite, ur, POC Negative Negative Leukocytes, ur, POC Negative Negative Lot Number [id number] Patient advised to follow up with PCP regarding abdominal pain. ER precautions provided. Disposition- Discussed medications dosages, usage & potential [...] is in agreement with the plan of care. Connie Moran NP documented in this encounter Plan of Treatment Not on file documented as of this encounter Procedures Procedure Name Priority Date/Time Associated Diagnosis Comments POCT URINALYSIS DIPSTICK Routine 01/02/2021 4:03 PM CDT UTI symptoms documented in this encounter Results * Urine culture Urine, clean voided (01/02/2021 4:04 PM CDT) Report Final Report: Less than 100,000 colonies/mL (clinically insignificant growth based on current clinical standards) JANIE PULIDO Comment:Testing performed by : [facility], [address], [place]., [address] Organism (CLINICALLY INSIGNIFICANT GROWTH JANIE PULIDO Urine, clean voided 01/02/2021 4:04 PM CDT 01/03/2021 12:12 AM CDT Narrative JANIE PULIDO - 01/04/2021 1:15 PM CDT Testing performed by [facility] ([phone]) us Connie Moran NP LAB MICROBIOLOGY - GENERAL OR DERABLES Final Result JANIE PULIDO [address] Department [place] [address] * (ABNORMAL) POCT urinalysis dipstick (01/02/2021 4:03 PM CDT) Color, Urine, POC Dark Yellow Clarity, ur, POC Clear Clear Glucose, ur, POC Negative Negative mg/dL Bilirubin, ur, POC Negative Negative, Small, Moderate, Large Ketones, ur, POC Negative Negative Specific [place], POC 1.030 1.005 - 1.030 Blood, ur, POC Negative Negative pH, ur, POC 6.5 5.0 - 8.0 Protein, ur, POC Trace(A) Negative Urobilinogen, urine, POC 0.2 0.2 - 1.0 mg/dL Nitrite, ur, POC Negative Negative Leukocytes, ur, POC Negative Negative Lot Number [id number] Urine 01/02/2021 4:03 PM CDT us Connie Moran NP POINT OF CARE TEST ORDERABLES Final Result documented in this encounter Visit Diagnoses Diagnosis UTI symptoms- Primary UTI symptoms documented in this encounter Care Teams Hotel Valet Attendant Relationship Specialty Start Date End Date Eliseo Lambert MD PCP - General Family Medicine 05/21/20 06/29/23 documented as of this encounter
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
--- OUTSIDE RECORDS SUMMARY | 2024-06-25 09:54 | XMS_ITS | Encounter Summary ---
Author Organization [facility] Address [address] [place] [address] Care Team Providers Care Operation Research Analyst Name Role Phone Eliseo Lambert MD Primary Care Provider Encounter Details Date Type Department Care Team (Late st Contact Info) Description 01/31/2021 Telephone [facility] [address] [place] [address] Eliseo Lambert MD [address] [place] [address] [address] [place] [address] Social History Tobacco Use Types Packs/Day Years Used Date Smoking Tobacco: Every Day Cigarettes Smokeless Tobacco: Never Alcohol Use Standard Drinks/Week Comments No 0 (1 standard drink = 0.6 oz pur e alcohol) PHQ-2 Answer Date Recorded PHQ-2 Total Score (If total score is 3 or more points, staff should administer the PHQ-9) 0 01/27/2021 Comments No Sex and Gender Information Value Date Recorded Sex Assigned at Not on file Legal Sex Female 1:17 AM TAILINGS MAN Gender Identity Not on file Sexual Orientation Not on file 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 Not on file Not on file documented as of this encounter Ordered Prescriptions Prescription Sig Dispense Quantity Refills Last Filled Start Date End Date amoxicillin-clavul anate (AUGMENTIN) 875-125 mg per tabletIndications: Sinusitis, unspecified chronicity, unspecified location Take 1 tablet by mouth 2 (two) times a day for 10 days 20 tablet 01/31/2021 02/10/2021 documented in this encounter Miscellaneous Notes * Telephone Encounter - Merle Mcclendon MA - 01/31/2021 4:29 PM CDT Lm for Kristy with information * Telephone Encounter - Eliseo Lambert MD - 01/31/2021 4:25 PM CDT Sent in abx for [facility] * Telephone Encounter - Merle Mcclendon MA - 01/31/2021 3:40 PM CDT Kristy contacted the office she states she currently has covid and now her head is pretty congested and states she is blowing green mucus out of her nose. She believes she has a sinus infection on top of the covid, and would like to know if she can get an antibiotic? documented in this encounter Plan of Treatment Not on file documented as of this encounter Visit Diagnoses Diagnosis Sinusitis, unspecified chronicity, unspecified location- Primary documented in this encounter Care Teams Operation Research Analyst Relationship Specialty Start Date End Date Eliseo Lambert MD PCP - General Family Medicine 05/21/20 06/29/23 documented as of this encounter
--- OUTSIDE RECORDS SUMMARY | 2024-06-25 09:54 | XMS_ITS | Encounter Summary ---
Author Organization [facility] Address [address] [place] [address] Care Team Providers Care Cheese Production Supervisor Name Role Phone Eliseo Lambert MD Primary Care Provider Encounter Details Date Type Department Care Team (Late st Contact Info) Description 02/19/2021 Telephone [facility] [place] [facility] [address] [facility] [address] [place] [address] Eliseo Lambert MD [address] [place] [address] [address] [place] [address] Social History Tobacco Use Types Packs/Day Years [...] on file Legal Sex Female 1:17 AM ARTIFICIAL 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 They said that they did not receive any intake forms from patient, I did explain that although we typically do havenew patients fill out health history forms, there are cases where they may have filled them out online or did not fill one out at all. I did not see any in patients chart, but it appears patient was established here before we were in [employer], so I advised that if there were any they may be in our old computer system, which I no longer have access to so I advised they check with [employer]. documented in this encounter Plan of Treatment Not on file documented as of this encounter Visit Diagnoses Not on filedocumented in this encounter Care Teams Cheese Production Supervisor Relationship Specialty Start Date End Date Eliseo Lambert MD PCP - General Family Medicine 05/21/20 06/29/23 documented as of this encounter
--- OUTSIDE RECORDS SUMMARY | 2024-06-25 09:54 | XMS_ITS | Encounter Summary ---
Author Organization [facility] Address [address] [place] [address] Care Team Providers Care Ore Roaster Name Role Phone Eliseo Lambert MD Primary Care Provider Reason for Visit * Reason Comments Well Women Visit Encounter Details Date Type Department Care Team (Latest Contact Info) Description 11/22/2020 10:30 AM CDT Office Visit [facility] [address] [place] [address] Olivia Christine, BONNIE [address] [facility] [address] [place] [address] Encounter for well woman exam with routine gynecological exam (Primary Dx) Social History Tobacco Use Types [...] on file Legal Sex Female 1:17 AM VISITOR SERVICES TECHNICIAN Gender Identity Not on file Sexual Orientation Not on file 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 Not on file Not on file documented as of this encounter Last Filed Vital Signs Vital Sign Reading Time Taken Comments Blood Pressure 108/76 11/22/2020 10:25 AM CDT Pulse 86 11/22/2020 10:25 AM CDT Temperature 36.2 ??C (97.2 ??F) 11/22/2020 10:25 AM C DT Respiratory Rate 20 11/22/2020 10:25 AM CDT Oxygen Saturation 100% 11/22/2020 10:25 AM CDT Inhaled Oxygen Concentration - - Weight 56.8 kg (125 lb 4.8 oz) 11/22/2020 10:25 AM CDT Height 160 cm (5' 2.99 ) 11/22/2020 10:25 AM CDT Body Mass Index 22.2 11/22/2020 10:25 AM CDT documented in this encounter Patient Instructions * Patient Instructions* Olivia Christine, FORECLOSURE HOME INSPECTOR - 11/22/2020 10:30 AM CDT Patient Education Pap Smear WHAT YOU NEED TO KNOW: What do I need to know about a Pap smear? A Pap smear, or Pap test, is used to screen for cervical cancer. It is also used to find precancerous and cancerous cells of the vulva and vagina. How do I prepare for a Pap smear? The best time to schedule the test is right after your period stops. Do not have a Pap smear during your monthly period. What will happen during a Pap smear? ?? You will lie on your back and place your feet on footrests called stirrups. Your healthcare provider will gently insert a device called a speculum into your vagina. The speculum is used to open the chaves of your vagina so he can see your cervix. ?? Your healthcare provider will gently scrape your cervix and vaginal areas for cell samples. The samples are placed in a container with liquid or on a glass slide. They are sent to a lab and examined for abnormal cells. A test for Human Papillomavirus (HPV) may be done at the same time. HPV is a sexually transmitted virus that can cause changes in cervical cells. What will happen after a Pap smear? Your healthcare provider will tell you when you can expect yourPap smear results. You may have some spotting the day of your procedure. How often do I need a Pap smear? Pap smears are usually done every 3 to 5 years depending on your age. You may need a Pap smear more often if you have any of the following: ?? Positive test result for the human papillomavirus (HPV) ?? A history of cervical cancer ?? HIV ?? A weak immune system ?? Exposure to diethylstilbestrol (EUN) medicine when your mother was with you CARE AGREEMENT: You have the right to help plan your care. Learn about your health condition and how it may be treated. Discuss treatment options with your caregivers to decide what care you want to receive. You always have the right to refuse treatment. The above information is an gericare aide teacher only. It is not intended as medical advice for individual conditions or treatments. Talk to your doctor, nurse or pharmacist before following any medical regimen to see if it is safe and effective for you. ?? 2017 [employer] Information is for End User's use only and may not be sold, redistributed or otherwise used for commercial purposes. All illustrations and images included in CareNotes?? are the copyrighted property of [email or web address] or [employer]. documented in this encounter Progress Notes * Olivia Christine NP - 11/22/2020 10:30 AM CDT SUBJECTIVE: 45 y.o. female for annual routine checkup. Current Outpatient Medications Medication Sig Dispense Refill ??? blood glucose diagnostic strip Please use twice daily to check BG measurements with compatible glucometer. 100 each 1 ??? buPROPion XL (WELLBUTRIN XL) 300 mg 24 hr tablet Take 300 mg by mouth every morning ??? cholecalciferol (VITAMIN D-3) 2000 unit tablet Take 1 tablet (2,000 Units total) by mouth dailyPleas take after finishing 12 weeks of high dose vitamin D (50,000 units/week) therapy 180 tablet 3 ??? clonazePAM (KlonoPIN) 0.5 mg tablet 0.5 mg 2 (two) times a day ??? cyclobenzaprine (FLEXERIL) 10 mg tablet Take 1 tablet (10 mg total) by mouth 2 (two) times a day as needed for muscle spasms 30 tablet 0 ??? ergocalciferol (VITAMIN D) 50,000 unit capsule Take 1 capsule (50,000 Units total) by mouth once a week 12 capsule 0 ??? famotidine (PEPCID) 40 mg tablet Take 1 tablet (40 mg total) by mouth daily 90 tablet 0 ??? HYDROcodone-acetaminophen (NORCO) 5-325 mg per tablet Take 1 tablet by mouth every 8 (eight) hours as needed for pain 21 tablet 0 ??? naproxen (NAPROSYN) 375 mg tablet Take 1 tablet (375 mg total) by mouth 2 (two) times a day as needed for pain (pain) 60 tablet 0 ??? OneTouch Verio Flex meter misc ??? spironolactone (ALDACTONE) 100 mg tablet Take 0.5 tablets (50 mg total) by mouth daily 90 tablet 0 ??? traZODone (DESYREL) 50 mg tablet No current facility-administered medications for this visit. Allergies: Guaifenesin nr [guaifenesin], Pravastatin, Sulfamethoxazole- trimethoprim, Nitrofurantoin, Oxybutynin, Dextromethorphan, Ibuprofen, Pseudoephedrine, Sulfa (sulfonamide antibiotics), Tramadol, Vicodin [hydrocodone-acetaminophen], and Yellow dye No LMP recorded. Patient is postmenopausal. LMP: 08/2020 ROS: Feeling well. No dyspnea or chest pain on exertion. No abdominal pain, change in bowel habits,black or bloody stools. No urinary tract symptoms. OUTBOARD TECHNICIAN ROS: no breast pain or new or enlarging lumps on self exam. No neurological complaints. Past Medical History: Diagnosis Date ??? Anxiety [...] ??? No Known Problems Brother Social History Socioeconomic History ??? Marital status: Single Spouse name: Not on file ??? Number of children: 4 ??? Years of education: Not on file ??? Highest education level: Not on file Occupational History ??? 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 Smoking status: Current Every Day Smoker ??? Smokeless tobacco: Never Used Vaping Use ??? Vaping Use: Never used Substance and Sexual Activity ??? Alcohol use: No ??? Drug use: No ??? Sexual activity: Not on file Other Topics Concern ??? Not on file Social History Narrative Lives with her 3 younger children. Social Determinants of Health Financial Resource Strain: ??? Difficulty of Paying Living Expenses: Food Insecurity: ??? Worried About Running Out of Food in the Last Year: ??? Ran Out of Food in the Last Year: Transportation Needs: ??? Lack of Transportation (Medical): ??? Lack of Transportation (Non-Medical): Physical Activity: ??? Days of Exercise per Week: ??? Minutes of Exercise per Session: Stress: ??? Feeling of Stress : Social Connections: ??? Frequency of Communication with Friends and Family: ??? Frequency of Social Gatherings with Friends and Family: ??? Attends Caodaism Services: ??? Active Member of Clubs or Organizations: ??? Attends Club or Organization Meetings: ??? Marital Status: Intimate Partner Violence: ??? Fear of Current or Ex-Partner: ??? Emotionally Abused: ??? Physically Abused: ??? Sexually Abused: PHQ Screening OBJECTIVE: The patient appears well, alert, oriented x 3, in no distress. BP 108/76 (BP Location: Right arm, Patient Position: Sitting) Pulse 86 Temp 36.2 ??C (97.2 ??F)(Temporal) Resp 20 Ht 160 cm (5' 2.99 ) Wt 56.8 kg (125 lb 4.8 oz) SpO2 100% BMI 22.20 kg/m?? ENT normal. Neck supple. No adenopathy or thyromegaly. MARTI. Lungs are clear, good air entry, no wheezes, rhonchi or rales. S1 and S2 normal, no murmurs, regular rate and rhythm. Abdomen soft without tenderness, guarding, mass or organomegaly. Extremities show no edema, normal peripheral pulses. Neurological is normal, no focal findings. BREAST EXAM: WNL, no suspicious lesions, rashes, etc. PELVIC EXAM: Internal and external WNL, no abnormal bleeding, normal discharge present, cervix WNL ASSESSMENT: Diagnoses and all orders for this visit: Encounter for well woman exam with routine gynecological exam (Primary) Comments: Well woman in office today Orders: - Pap and High Risk HPV, reflex to Genotyping; Future PLAN: mammogram counseled on breast self exam and mammography screening additional lab tests per orders return annually or prn Cosigned by Ilan Inman MD at 11/22/2020 12:08 PM CDT documented in this encounter Plan of Treatment Not on file documented as of this encounter Visit Diagnoses Diagnosis Encounter for well woman exam with routine gynecological exam- Primary documented in this encounter Care Teams Ore Roaster Relationship Specialty Start Date End Date Eliseo Lambert MD PCP - General Family Medicine 05/21/20 06/29/23 documented as of this encounter
--- OUTSIDE RECORDS SUMMARY | 2024-06-25 09:54 | XMS_ITS | Encounter Summary ---
Author Organization [facility] Medical Group Address [address] [place] [address] Care Team Providers Care Pocket Flap Creasing Machine Operator Name Role Phone Eliseo Lambert MD Primary Care Provider Reason for Visit * Reason Comments Bloated X1 WK Nausea URQ PAIN Encounter Details Date Type Department Care Team (Late st Contact Info) Description 01/06/2021 1:00 PM CDT Office Visit [facility] [address] [place] [address] Eliseo Lambert MD [address] [place] [address] [address] [place], [place] [id number] Abdominal pain (Primary Dx); Pure hypercholesterolemia ; Vitamin D deficiency; CKD (chronic kidney disease) stage 2, GFR 60-89 ml/min; Abdominal bloating; Chronic RUQ pain; Nausea Social History Tobacco Use Types Packs/Day Years Used Date Smoking Tobacco: Every Day Cigarettes Smokeless Tobacco: Never Alcohol Use Standard Drinks/Week Comments No 0 (1 standard drink = 0.6 oz pur e alcohol) PHQ-2 Answer Date Recorded PHQ-2 Total Score (If total score is 3 or more points, staff should administer the PHQ-9) 0 01/06/2021 Comments No Sex and Gender Information Value Date Recorded Sex Assigned at Not on file Legal Sex Female 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 Gender Identity Not on file Sexual Orientation Not on file 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 Not on file Not on file documented as of this encounter Last Filed Vital Signs Vital Sign Reading Time Taken Comments Blood Pressure 110/82 01/06/2021 1:11 PM CDT Pulse 89 01/06/2021 1:11 PM CDT Temperature - - Respiratory Rate 16 01/06/2021 1:11 PM CDT Oxygen Saturation 98% 01/06/2021 1:11 PM CDT Inhaled Oxygen Concentration - - Weight 57.1 kg (125 lb 14.4 oz) 01/06/2021 1:11 PM CDT Height 156.2 cm (5' 1.5 ) 01/06/2021 1:11 PM CDT Body Mass Index 23.41 01/06/2021 1:11 PM CDT documented in this encounter Ordered Prescriptions Prescription Sig Dispense Quantity Refills Last Filled Start Date End Date euglo-e-zjetizdndrlt e 600 unit capsuleIndications:A bdominal bloating Take 1-2 capsules by mouth as needed (with meals for abdominal bloating) 180 capsule 1 01/06/2021 ondansetron ODT (ZOFRAN-ODT) 4 mg disintegrating tabletIndications:Na usea Take 1 tablet (4 mg total) by mouth every 8 (eight) hours as needed for nausea or vomiting 21 tablet 01/06/2021 2 documented in this encounter Progress Notes * Eliseo Lambert MD - 01/06/2021 1:00 PM CDT Images from the original note were not included. Assessment/Plan Diagnoses and all orders for this visit: Pure hypercholesterolemia (Primary) Assessment & Plan: - noted on most recent lipid panel, per patient chronic condition - most recent LDL as shown below Lab Results Component Value Date LDLCALC 150 (H) 09/18/2020 - The 10-year ASCVD risk score (Jerome PARADISE Chaudhary, et al., 2013) is: 2.2% Values used [...] made to defer it at this time Vitamin D deficiency Assessment & Plan: - Noted on 08/2020 - Vit D Level 17 - discussed new finding of vitamin D deficiency - it can be associated with fatigue and tiredness and muscle ache - completed weekly high dose vitamin D - not taking low dose daily vitamin D supplementation - reminded of her of the need to take it CKD (chronic kidney disease) stage 2, GFR 60-89 ml/min Assessment & Plan: - patient states she has family hx of kidney disease in her Paternal Aunt, Paternal grandmother andPaternal Uncle - currently she has CKD stage 2 - unclear why given no significant risk factors in her - will consider obtaining US of kidneys in future - recheck renal function Abdominal bloating - psppr-a-ouejvlbirbizj 600 unit capsule; Take 1-2 capsules by mouth as needed (with meals for abdominal bloating) Chronic RUQ pain Assessment & Plan: - s/p cholecystectomy around 2017 - still her intermittent RUQ pain from time to time even after cholecystectomy - s/p CT of abdomen on 05/2020 with no abnormal findings Orders: - Comprehensive metabolic panel; Future - CBC without differential; Future - Lipid panel; Future - Lipase; Future - POCT UA, AUTO W/O SCOPE - POCT hCG, urine, by visual color Nausea - ondansetron ODT (ZOFRAN-ODT) 4 mg disintegrating tablet; Take 1 tablet (4 mg total) by mouth every 8 (eight) hours as needed for nausea or vomiting Abdominal pain - Urine culture Urine, clean voided; Future Point of care urinalysis showed no significant abnormal findings. Point of care test was also negative I do not suspect any acute findings given chronic nature of the right upper quadrant pain. Patient would benefit with medication for the abdominal bloating which may elevated 70 abdominal discomfort. I will obtain some labs on this visit as ordered above for further evaluation. Return if symptoms worsen or fail to improve. Subjective/Objective Chief Complaint Patient presents with ??? Bloated X1 WK ??? Nausea ??? URQ PAIN HPI Kristy Kapoor is a 45 y.o. female who presents today with chief complaint of 1 week duration of abdominal bloating, nausea as well as rapid quadrant pain which is chronic in nature but has been intermittent. Patient notes over the past week she has noticed abdominal bloating associated with some nausea and 1 episode of vomiting which is about a week ago. She does not have any nausea medication to take at home. She did have this intermittent right upper quadrant pain for which he has been evaluated in the past most recently back in May of [address] when she had a CT of the abdomen which showednormal findings. She has also had gallbladder surgery back in 2018 for similar complaints. However she still has some right upper quadrant pain that comes from time to time. She denies any diarrhea or constipation, no fever or chills, no shortness of breath or cough this time. She still follows up with psychiatry for her depression, anxiety as well as PTSD. PHQ9 - Depression Screening tool questionnaire Over [...] Moderately severe depression 20-27 = Severe depression Labs: Lab Results Component Value Date CHOL 258 (H) 01/06/2021 TRIG 113 01/06/2021 HDL 62 01/06/2021 Lab Results Component Value Date LDLCALC 173 (H) 01/06/2021 Lab Results Component Value Date TSH 2.39 [...] and leg swelling. Gastrointestinal: Positive for abdominal distention, abdominal pain (RUQ) and nausea. Negative for anal bleeding, blood in stool, constipation, diarrhea and vomiting. Genitourinary: Negative for difficulty urinating, dysuria, flank pain, frequency, hematuria and urgency. Musculoskeletal: Positive for neck pain and neck stiffness. Negative for back pain and myalgias. Skin: Negative for rash and wound. Allergic/Immunologic: Negative for environmental allergies and food allergies. Neurological: Negative for dizziness, speech difficulty, weakness and headaches. Psychiatric/Behavioral: Negative for agitation and behavioral problems. Vitals: 01/06/21 1311 BP: 110/82 BP Location: Right arm Patient Position: Sitting Pulse: 89 Resp: 16 SpO2: 98% Weight: 57.1 kg (125 lb 14.4 oz) Height: 156.2 cm (5' 1.5 ) Wt Readings from Last 3 Encounters: 01/06/21 57.1 kg (125 lb 14.4 oz) 01/02/21 57 kg (125 lb 9.6 oz) 12/27/20 57.6 kg (126 lb 14.4 oz) Body mass index is 23.41 kg/m??. Physical Exam Vitals and nursing note reviewed. Constitutional: General: She is awake. Appearance: Normal appearance. She is well-developed, well-groomed and normal weight. HENT: Head: Normocephalic and atraumatic. Right Ear: External ear normal. Mouth/Throat: Lips: Cantril. Eyes: General: Lids are normal. Extraocular Movements: Extraocular movements intact. Cardiovascular: Rate and Rhythm: Normal rate and regular rhythm. Heart sounds: No murmur heard. Pulmonary: Effort: Pulmonary effort is normal. No respiratory distress. Breath sounds: Normal breath sounds. No wheezing. Abdominal: General: Bowel sounds are normal. There is distension. Palpations: Abdomen is soft. There is no mass. Tenderness: There is abdominal tenderness (mild) in the right upper quadrant, right lower quadrant and left lower quadrant. There is no right CVA tenderness, left CVA tenderness, guarding or rebound. Hernia: No hernia is present. Musculoskeletal: General: Normal range of motion. Cervical back: Normal range of motion and neck supple. Left lower leg: No edema. Skin: General: Skin is warm and dry. Capillary Refill: Capillary refill takes less than 2 seconds. Findings: No erythema or rash. Neurological: General: No focal deficit present. Mental Status: She is alert and oriented to person, place, and time. Psychiatric: Behavior: Behavior normal. Behavior is cooperative. Results for orders placed or performed in visit on 01/06/21 POCT UA, AUTO W/O SCOPE Result Value Ref Range Color, Urine, POC Light Yellow Clarity, ur, POC Clear Clear Glucose, ur, POC Negative Negative mg/dL Bilirubin, ur, POC Negative Negative, Small, Moderate, Large Ketones, ur, POC Negative Negative Specific [place], POC 1.010 1.005 - 1.030 Blood, ur, POC Negative Negative pH, ur, POC 6.0 5.0 - 8.0 Protein, ur, POC Negative Negative Urobilinogen, Urine, POC 0.2 mg/dL Leukocytes, ur, POC Negative Negative Nitrite, ur, POC Negative Negative Appearance, fld Clear Clear No abnormality noted on point of care urinalysis. Eliseo Lambert MD January 06, 2021 10:28 PM Please note: Voice recognition software Expandly was used dictate and transcribe this document. Paralegal variances may occur. Despite proofreading, typographical errors may occur. documented in this encounter Miscellaneous Notes * Assessment & Plan Note - Eliseo Lambert MD - 01/06/2021 10:24 PM CDT Associated Problem(s): Chronic RUQ pain - s/p cholecystectomy around 2017 - still her intermittent RUQ pain from time to time even after cholecystectomy - s/p CT of abdomen on 05/2020 with no abnormal findings * Assessment & Plan Note - Eliseo Lambert MD - 01/06/2021 1:31 PM CDT Associated Problem(s): CKD (chronic kidney disease) stage 2, GFR 60-89 ml/min - patient states she has family hx of kidney disease in her Paternal Aunt, Paternal grandmother andPaternal Uncle - currently she has CKD stage 2 - unclear why given no significant risk factors in her - will consider obtaining US of kidneys in future - recheck renal function * Assessment & Plan Note - Eliseo Lambert MD - 01/06/2021 1:18 PM CDT Associated Problem(s): Vitamin D deficiency - Noted on 08/2020 - Vit D Level 17 - discussed new finding of vitamin D deficiency - it can be associated with fatigue and tiredness and muscle ache - completed weekly high dose vitamin D - not taking low dose daily vitamin D supplementation - reminded of her of the need to take it * Assessment & Plan Note - Eliseo Lambert MD - 01/06/2021 1:16 PM CDT Associated Problem(s): Pure hypercholesterolemia - noted on most recent lipid panel, per patient chronic condition - most recent LDL as shown below Lab Results Component Value Date LDLCALC 150 (H) 09/18/2020 - The 10-year ASCVD risk score (Jeromemikey GHOTRA Jr., et al., 2013) is: 2.2% Values used [...] made to defer it at this time documented in this encounter Plan of Treatment Not on file documented as of this encounter Procedures Procedure Name Priority Date/Time Associated Diagnosis Comments POCT URINALYSIS, AUTO W/O SCOPE Routine 01/06/2021 2:07 PM CDT Chronic RUQ pain POCT HCG, URINE, BY VISUAL COLOR Routine 01/06/2021 1:55 PM CDT Chronic RUQ pain documented in this encounter Results * POCT UA, AUTO W/O SCOPE (01/06/2021 2:07 PM CDT) Color, Urine, POC Light Yellow Clarity, ur, POC Clear Clear Glucose, ur, POC Negative Negative mg/dL Bilirubin, ur, POC Negative Negative, Small, Moderate, Large Ketones, ur, POC Negative Negative Specific [place], POC 1.010 1.005 - 1.030 Blood, ur, POC Negative Negative pH, ur, POC 6.0 5.0 - 8.0 Protein, ur, POC Negative Negative Urobilinogen, Urine, POC 0.2 mg/dL Leukocytes, ur, POC Negative Negative Nitrite, ur, POC Negative Negative Appearance, fld Clear Clear Urine, clean voided 01/06/2021 2:07 PM CDT Eliseo Lambert MD POINT OF CARE TEST ORDE RABFARRAH Final Result * POCT hCG, urine, by visual color (01/06/2021 1:55 PM CDT) test, ur, POC Negative Urine 01/06/2021 1:55 PM CDT Eliseo Lambert MD POINT OF CARE TEST ORDE RABLES Final Result * Lipase (01/06/2021 1:51 PM CDT) Pathologist [facility] Lipase 36 10 - 99 Units/L [facility] (AMANUEL) Blood specimen (specimen) 01/06/2021 1:51 PM CDT 01/06/2021 3:17 PM CDT Eliseo Lambert MD LAB BLOOD ORDERABLES Fi nal Result [facility] (AMANUEL) 1 [facility] [place] [address] * (ABNORMAL) Lipid panel (01/06/2021 1:51 PM CDT) Pathologist [facility] Cholesterol 258(H) 30 - 199 mg/dL [facility] (AMANUEL) [...] Data was last revised on 2018. Triglycerides 113 <=149 mg/dL [facility] (AMANUEL) Comment: Interpretive [...] Data was last revised on 2018. HDL 62 >=40 mg/dL [facility] (AMANUEL) Comment: Interpretive Data [...] was last revised on 2018. LDL, calculated 173(H) <=129 mg/dL [facility] (AMANUEL) Comment: Interpretive [...] was last revised on 2018. Non-HDL Cholesterol 196 mg/dL [facility] (AMANUEL) Comment: Interpretive Data [...] was last revised on 2018. Chol/HDL ratio 4 [facility] ([facility]) Blood specimen (specimen) 01/06/2021 1:51 PM CDT 01/06/2021 3:17 PM CDT Narrative [facility] ([facility]) - 01/06/2021 3:37 PM CDT Has the patient been fasting for 8 hours or more?->No us Eliseo Lambert MD LAB BLOOD ORDERABLES Fi nal Result [facility] ([facility]) [address] [facility] [place] [address] * (ABNORMAL) CBC without differential (01/06/2021 1:51 PM CDT) WBC 5.8 3.8 - 9.9 K/cumm [facility] ([facility]) Hgb 13.0 11.9 - 15.5 g/dL [facility] ([facility]) Hct 38.9 35.6 - 45.5 % [facility] ([facility]) Plt 283 150 - 400 K/cumm [facility] ([facility]) MPV 10.7 9.1 - 12.3 fL [facility] ([facility]) RBC 4.00 3.90 - 5.20 M/cumm [facility] ([facility]) MCV 97.3(H) 81.3 - 96.4 fL [facility] ([facility]) MCH 32.5 27.1 - 33.3 pg [facility] ([facility]) MCHC 33.4 32.3 - 35.7 g/dL [facility] ([facility]) RDW CV 12.1 11.1 - 14.9 % [facility] ([facility]) RDW SD 43.8 35.7 - 48.1 fL [facility] ([facility]) NRBC abs 0.00 0.00 - 0.01 K/cumm [facility] ([facility]) Blood specimen (specimen) 01/06/2021 1:51 PM CDT 01/06/2021 3:17 PM CDT us Eliseo Lambert MD LAB BLOOD ORDERABLES Fi nal Result [facility] ([facility]) 1 [facility] [place] [address] * Comprehensive metabolic panel (01/06/2021 1:51 PM CDT) Sodium 137 135 - 145 mmol/L [facility] ([facility]) Potassium, pl 4.6 3.3 - 4.9 mmol/L [facility] ([facility]) Chloride 103 97 - 110 mmol/L [facility] ([facility]) CO2 28 22 - 32 mmol/L [facility] ([facility]) Anion gap 6 2 - 15 mmol/L [facility] ([facility]) BUN 11 8 - 25 mg/dL [facility] ([facility]) Creatinine 0.86 0.60 - 1.10 mg/dL [facility] ([facility]) Glucose 97 70 - 199 mg/dL [facility] ([facility]) [...] interpretive data was last revised 2017. Calcium 9.6 8.5 - 10.3 mg/dL [facility] ([facility]) Bilirubin, total 0.2 0.1 - 1.2 mg/dL [facility] ([facility]) Protein, pl 7.7 6.5 - 8.5 g/dL [facility] ([facility]) Albumin 4.7 3.5 - 5.0 g/dL [facility] ([facility]) Alk phos 99 40 - 130 Units/L [facility] ([facility]) ALT 16 7 - 45 Units/L [facility] ([facility]) AST 25 10 - 45 Units/L [facility] ([facility]) Blood specimen (specimen) 01/06/2021 1:51 PM CDT 01/06/2021 3:17 PM CDT Eliseo Lambert MD LAB BLOOD ORDERABLES Fi nal Result [facility] (AMAN[place]EL) [address] [facility] [place] [address] * Urine culture Urine, clean voided (01/06/2021 1:30 PM CDT) Report Final Report: Less than 100,000 colonies/mL (clinically insignificant growth based on current clinical standards) [facility] (AMANUEL) Comment:Testing performed by : [facility], [address] [place] [address] Organism (CLINICALLY INSIGNIFICANT GROWTH [facility] (AMANUEL) Urine, clean voided 01/06/2021 1:30 PM CDT 01/06/2021 7:31 PM CDT Narrative [facility] (AMANUEL) - 01/07/2021 9:51 PM CDT Testing performed by [facility] Microbiology Laboratory ([phone]) Eliseo Lambert MD LAB MICROBIOLOGY - GENE RAL ORDERABLES Final Result Performing Organization Address [facility] Co de Phone Number Y[facility]IL[facility] ([place]) 1 [facility] [place] [address] documented in this encounter Visit Diagnoses Diagnosis Abdominal pain- Primary Abdominal pain, unspecified site Pure hypercholesterolemia Vitamin D deficiency CKD (chronic kidney disease) stage 2, GFR 60-89 ml/min Chronic kidney disease, Stage II (mild) Abdominal bloating Flatulence, eructation, and gas pain Chronic RUQ pain Abdominal pain, right upper quadrant Nausea Nausea alone Abdominal pain Abdominal pain, unspecified site Chronic RUQ pain Abdominal pain, right upper quadrant Vitamin D deficiency Abdominal pain Abdominal pain, unspecified site documented in this encounter Discontinued Medications Medication Sig Discontinue Reason Start Date End Da te traZODone (DESYREL) 50 mg tablet 10/09/2020 01/06/2021 documented as of this encounter Care Teams Pocket Flap Creasing Machine Operator Relationship Specialty Start Date End Date Eliseo Lambert MD PCP - General Family Medicine 05/21/20 06/29/23 documented as of this encounter
--- OUTSIDE RECORDS SUMMARY | 2024-06-25 09:54 | XMS_ITS | Encounter Summary ---
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 [...] once a week 12 capsule 09/20/2020 1 cholecalciferol (VITAMIN D-3) 2000 unit tabletIndication s:Vitamin D Deficiency Take 1 tablet (2,000 Units total) by mouth daily Pleas take after finishing 12 weeks of high dose vitamin D (50,000 units/week) therapy 180 tablet 3 09/20/2020 2 clonazePAM (KlonoPIN) 0.5 mg tablet 0.5 mg 2 (two) times a day NEEDED 02/06/2020 2 spironolactone (ALDACTONE) 100 mg tabletIndication s:Cystic acne vulgaris Take 0.5 tablets (50 mg total) by mouth daily 90 tablet 09/18/2020 1 traZODone (DESYREL) 50 mg tablet 10/09/2020 1 documented as of this encounter Discharge Disposition [...] PM T: ??11/11/2020 1:49 PM Report ID: [id number] Reading Location: ??[id number] Procedure Note Rd Rivas MD - 11/11/2020 [...] Rd Rivas M.D. NANCY: NANCY Report ID: [id number] Reading Location: [place] [address] us Soco Matthews NP IMG XR PROCEDURES Final Resu lt * [...] PM T: ??11/11/2020 1:49 PM Report ID: [id number] Reading Location: ??[id number] Procedure Note [address] Rivas MD - 11/11/2020 [...] Rd Rivas M.D. NANCY: NANCY Report ID: [id number] Reading Location: [id number] Soco Matthews LITERATURE TEACHER IMG XR PROCEDURES Final Resu lt documented in this encounter Visit Diagnoses Not on filedocumented in this encounter Care Teams Shuttle Inspector Relationship Specialty Start Date End Date Eliseo Lambert MD PCP - General Family Medicine 05/21/20 06/29/23 documented as of this encounter
--- OUTSIDE RECORDS SUMMARY | 2024-06-25 09:54 | XMS_ITS | Encounter Summary ---
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 Kapoor reports experiencing increased pain/tenderness near the base of the neck and into the skull. Reports that she is experiencing migraine symptoms this morning. Reports that she felt pain in my eyeballs during manual treatment last visit. Reports that she took the KTape off after one day. Pain: 01/04 neck Objective: Observation: Cervical movements are slow and guarded. The patient holds a shoulder shrug position due to subjective reports of pain Palpation: Trigger point activity bilateral UT/cervical paraspinals, but is increased on the left Treatment Provided: Modalities: -MHP prior to stretching -US to cervical paraspinals/UT Manual: -STM/IASTM to UT/Rhomboids -Sub Occipital release -Neck hammock x 2 minutes* -Ktape to B UT* Exercise: -UBE x 4 min* -Active cervical stretching 5 reps each* Assessment: Ms. Kapoor tolerated treatment with continued guarding, and reports of WHEELER. Patient significantly limited by subjective complaints and guarded movements. TP activity is most noticeable on the left, and the patient was reminded of the need for progressive stretching to aid in flexibility of the neck, and to minimize guarding as much as possible. Plan: Continue with POC with progressions as patient tolerates. Start Time: 914 End Time: 999 Paulino Walter PT documented in this encounter Plan of Treatment Not on file documented as of this encounter Visit Diagnoses Diagnosis Cervical strain, acute, initial encounter- Primary documented in this encounter Care Teams Ordnance Artificer Relationship Specialty Start Date End Date Eliseo Lambert MD PCP - General Family Medicine 05/21/20 06/29/23 documented as of this encounter
--- OUTSIDE RECORDS SUMMARY | 2024-06-25 09:54 | XMS_ITS | Encounter Summary ---
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 Not on file Not on file documented as of this encounter Plan of Treatment Not on file documented as of this encounter Procedures Procedure Name Priority Date/Time Associated Diagnosis Comments URINE CULTURE Routine 01/02/2021 4:04 PM CDT UTI symptoms documented in this encounter Results * Urine culture Urine, clean voided (01/02/2021 4:04 PM CDT) Report Final Report: Less than 100,000 colonies/mL (clinically insignificant growth based on current clinical standards) JANIE PULIDO Comment:Testing performed by : [facility], [address] [place]., [address] Organism (CLINICALLY INSIGNIFICANT GROWTH JANIE Urine, clean voided 01/02/2021 4:04 PM CDT 01/03/2021 12:12 AM CDT Narrative JANIE PULIDO - 01/04/2021 1:15 PM CDT Testing performed by [facility] Microbiology Laboratory ([phone]) Connie Moran MECHATRONICS ENGINEER LAB MICROBIOLOGY - GENERAL OR DERABLES Final Result JANIE [address] Department [place] [address] documented in this encounter Visit Diagnoses Diagnosis UTI symptoms documented in this encounter Care Teams Aircraft Sales Representative Relationship Specialty Start Date End Date Eliseo Lmabert MD PCP - General Family Medicine 05/21/20 06/29/23 documented as of this encounter
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
--- OUTSIDE RECORDS SUMMARY | 2024-06-25 09:54 | XMS_ITS | Encounter Summary ---
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 Reports that the tightness is noticed moreso on the left. Pain: Not rated this date Objective: Observation: Cervical movements are slow and guarded Palpation: Increased trigger point activity noted left UT greater than right Treatment Provided: Modalities: -US to cervical paraspinals/UT Manual: -STM/IASTM to UT/Rhomboids Exercise: -Active cervical stretching 5 reps each Assessment: Ms. Kapoor tolerated treatment with intermittent reports of discomfort primarily on the left. Plan: Continue with POC with progressions as patient tolerates. Start Time: 914 End Time: 954 Paulino Walter PT documented in this encounter Plan of Treatment Not on file documented as of this encounter Visit Diagnoses Diagnosis Cervical strain, acute, initial encounter- Primary documented in this encounter Care Teams Players Assistant Relationship Specialty Start Date End Date Eliseo Lambert MD PCP - General Family Medicine 05/21/20 06/29/23 documented as of this encounter
--- OUTSIDE RECORDS SUMMARY | 2024-06-25 09:54 | XMS_ITS | Encounter Summary ---
Author Organization [facility] Address [address] [place] [address] Care Team Providers Care Maxillofacial Prosthodontist Name Role Phone Eliseo Lambert MD Primary Care Provider Encounter Details Date Type Department Care Team (Late st Contact Info) Description 01/04/2021 Telephone [facility] [address] [place] [address] Chana Bhagat MA Social History Tobacco Use Types Packs/Day Years [...] on file Legal Sex Female 1:17 AM CLINICAL PRACTICE CONSULTANT Gender Identity Not on file Sexual Orientation Not on file 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 She was told to follow up with herPCP since her symptoms have not improved since her visit. * Telephone Encounter - Chana Bhagat MA - 01/04/2021 5:02 PM CDT ----- Message from Connie Moran NP sent at 01/04/2021 1:45 PM CDT ----- [facility] cc pool, please inform patient of clinically insignificant urine culture results. She may complete antibiotics and follow up with PCP if symptoms persist. documented in this encounter Plan of Treatment Not on file documented as of this encounter Visit Diagnoses Not on filedocumented in this encounter Care Teams Maxillofacial Prosthodontist Relationship Specialty Start Date End Date Eliseo Lambert MD PCP - General Family Medicine 05/21/20 06/29/23 documented as of this encounter
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
--- OUTSIDE RECORDS SUMMARY | 2024-06-25 09:54 | XMS_ITS | Encounter Summary ---
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 Pain: 6-7/10 neck Objective:see treatment below. Palpation: L UT/rhomboids moderate tightness, upper cervical minimal tightness Treatment Provided: Modalities: -MHP prior to stretching -US to cervical paraspinals/UT Manual: -STM/IASTM to UT/Rhomboids -Sub Occipital release -Neck hammock x 2 minutes* -Ktape to B UT-with gentle tape -Cupping L UT Exercise: -UBE x 4 min* -Active cervical stretching 5 reps each* *Not performed this date Assessment: as per re-eval on February 26 goals are not achieved and pt's progress has been limitedat this time. Discussed with evaluating PT and stated will need updated referral to continue physical therapy. Plan:Pt has completed 06/08 authorized visits at this time. No new orders have been received. Pt is aware to cont HEP and returns to doctor on March 27. Start Time: 829 End Time: 914 Nubia Elizabeth PTA documented in this encounter Plan of Treatment Not on file documented as of this encounter Visit Diagnoses Diagnosis Cervical strain, acute, initial encounter- Primary documented in this encounter Care Teams Director Check Relationship Specialty Start Date End Date Eliseo Lambert MD PCP - General Family Medicine 05/21/20 06/29/23 documented as of this encounter
--- OUTSIDE RECORDS SUMMARY | 2024-06-25 09:54 | XMS_ITS | Encounter Summary ---
Author Organization 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 I provided him with Martha Farr's number along with Carlos Vicky since we do not handle the records here. * Telephone Encounter - Preeti Swann - 02/10/2021 11:46 AM CDT Received a subpoena in the mail with a check attached. Per office protocol the subpoena was Forwarded to [facility] and Martha Farr for processing, and thecheck is being returned certified to the sender as we do not process records here. documented in this encounter Plan of Treatment Not on file documented as of this encounter Visit Diagnoses Not on filedocumented in this encounter Care Teams Assembler Installer Structures Relationship Specialty Start Date End Date Eliseo Lambert MD PCP - General Family Medicine 05/21/20 06/29/23 documented as of this encounter
--- OUTSIDE RECORDS SUMMARY | 2024-06-25 09:54 | XMS_ITS | Encounter Summary ---
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 Kapoor reports experiencing burning/sharp pain in the neck with quick movements. Patient continues to experience tightness in the neck and across the shoulders, and experiences restingpain which is continuous. Patient reports that she experiences tingling and weakness in the entire right UE/LE. Pain: 6-7/10 neck Objective: Observation: Patient exhibits continued guarding of cervical movements, and holds the shoulders in an elevated position guarding against discomfort. ?? Cervical ROM: deg Flexion 25 deg ?? Extension 30 deg ?? Lateral flexion Right: 30 deg Left: 20 deg Rotation Right: 30 deg Left: 30 deg ?? Neurological: -Reflexes: Biceps/Brachioradialis reflexes test 2+ bilaterally -Myotomes: Cervical myotomes test WNL -Sensation: Tests intact to light touch in bilateral UE ?? Palpation: Increased contraction bilateral UT left greater than right. Patient tender to palpation bilateral UT. ?? NDI: 47% Treatment Provided: Modalities: -MHP prior to stretching -US to cervical paraspinals/UT Manual: -STM/IASTM to UT/Rhomboids -Sub Occipital release* -Neck hammock x 2 minutes* -Ktape to B UT* -Cupping L UT Exercise: -UBE x 4 min* -Active cervical stretching 5 reps each* *Not performed this date Assessment: Ms. Kapoor has tolerated treatment with minimal change in subjective complaints of pain.Cervical movements remain slow and guarded. Objective testing exhibited slight increase with cervical ROM, and strength is WNL, but, overall, ROM is significantly limited. Tenderness and trigger point activity remain in the UT left greater than right. The patient did note an improvement in perceived level of disability on NDI, but shows minimal improvement while in the clinic. Ms. Kapoor is pleasant and cooperative with treatment, but progression to strengthening and functional activities has been limited secondary to subjective complaints. It would appear that progressions will be slow, at best, due to continued subjective complaints. Goals STG 1:: Patient to report cervical/thoracic pain decreased to 4-5/10, when active, to aid in progression of exercise/ADLs Goal status: Not met STG 2:: Patient to exhibit increase in cervical ROM of 10-15 degrees to aid in ADLs Goal status: Slightly improved STG 3:: Patient to maintain UE strength of 5/5 to aid in performance of work duties/ADLs Goal status: Met STG 4:: Patient to teach back HEP with minimal cues Goal status: Met LTG 1:: Patient to report cervical/thoracic pain decreased to a level of 2/10, at worst, by d/c Goal status: Ongoing LTG 2:: Patient to improve cervical AROM to WNL, throughout, by d/c Goal status: Ongoing LTG 3:: Patient to be able to perform repetitive reaching activities for 10-20 reps to aid in progression and return to job duties Goal status: Ongoing LTG 4:: Patient to improve NDI score to 20%, or less, by d/c Goal status: Improving Plan: Ms. Kapoor is scheduled to return to MD on 02/27/21. We will await any further orders at this time. Start Time: 924 End Time: 1004 Paulino Walter PT documented in this encounter Plan of Treatment Not on file documented as of this encounter Visit Diagnoses Diagnosis Cervical strain, acute, initial encounter- Primary documented in this encounter Care Teams Boiler Or Engine Operator Relationship Specialty Start Date End Date Eliseo Lambert MD PCP - General Family Medicine 05/21/20 06/29/23 documented as of this encounter
--- OUTSIDE RECORDS SUMMARY | 2024-06-25 09:54 | XMS_ITS | Encounter Summary ---
Author Organization [facility] Healthcare Address [address] [place] [address] Care Team Providers Care Dining Room Maid Name Role Phone Eliseo Lambert MD Primary Care Provider Reason for Visit * Reason Comments PT Treatment Encounter Details Date Type Department Care Team (Late st Contact Info) Description 02/14/2021 8:30 AM CDT Therapy [facility] Physical Therapy - [address] Rehabilitation & [place] [address] Nubia Elizabeth, KEVIN Cervical strain, acute, initial [...] on file Legal Sex Female 1:[address] Gender Identity Not on file Sexual Orientation Not on file 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 Pain: 7/10 neck Objective: Observation: Cervical movements are slow and guarded. Palpation: Trigger point activity bilateral UT/cervical paraspinals, but is increased on the left Treatment Provided: Modalities: -MHP prior to stretching -US to cervical paraspinals/UT Manual: -STM/IASTM to UT/Rhomboids -Sub Occipital release -Neck hammock x 2 minutes* -Ktape to B UT Exercise: -UBE x 4 min* -Active cervical stretching 5 reps each* Assessment: Pt tolerates well. Continues to have trigger point on the Left. Reapplied Ktape to B UTwith keeping out of hairline. Discussed importance of not holding a shrug position and doing shoulder rolls every hour to help with decreasing guarded posture. Plan: Continue with POC with progressions as patient tolerates. Start Time: 824 End Time: 912 Nubia Elizabeth PTA documented in this encounter Plan of Treatment Not on file documented as of this encounter Visit Diagnoses Diagnosis Cervical strain, acute, initial encounter- Primary documented in this encounter Care Teams Dining Room Maid Relationship Specialty Start Date End Date Eliseo Lambert MD PCP - General Family Medicine 05/21/20 06/29/23 documented as of this encounter
--- OUTSIDE RECORDS SUMMARY | 2024-06-25 09:54 | XMS_ITS | Encounter Summary ---
Author Organization [facility] Healthcare Address [address] [place] [address] Care Team Providers Care Site Director Name Role Phone Eliseo Lambert MD Primary Care Provider Encounter Details Date Type Department Care Team (Late st Contact Info) Description 09/20/2020 1:50 PM CDT [address] Vitamin D deficiency; Urinary frequency Social History Tobacco Use Types Packs/Day Years Used Date Smoking Tobacco: Former Smokeless Tobacco: Never Alcohol Use Standard Drinks/Week Comments No 0 (1 standard drink = 0.6 oz pur e alcohol) PHQ-2 Answer Date Recorded PHQ-2 Total Score (If total score is 3 or more points, staff should administer the PHQ-9) 0 09/20/2020 Comments No Sex and Gender Information Value Date Recorded Sex Assigned at Not on file 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 No need for antibiotics at this time. documented in this encounter Plan of Treatment Not on file documented as of this encounter Procedures Procedure Name Priority Date/Time Associated Diagnosis Comments URINE CULTURE Routine 09/20/2020 1:53 PM CDT Urinary frequency documented in this encounter Results * (ABNORMAL) Urine culture Urine, clean voided (09/20/2020 1:53 PM CDT) Report Final Report: Less than 100,000 colonies/mL (clinically insignificant growth based on current clinical standards) Includes the following: Less than 100,000 colonies/mL Streptococcus agalactiae (Group B Streptococci) This laboratory routinely screens urine cultures for any amount of Group B Streptococcus in reproductive age women. ??Recovery of this isolate may be significant in women, however, the recovery of this organism in small quantities in non- women represents contamination with periurethral mary kay. * ??* ??* ??* ??* ??* ??* ??* ??* ??* ??* ??* ??* ??* ??* ??* ??* ??* ??* ??* Resistance to penicillin in Group B Streptococcus has not been reported. ??Group B Streptococci are universally susceptible to beta-lactam antibiotics and vancomycin. Routine susceptibility testing is not performed. In penicillin allergic patients, please contact the laboratory at [phone] to request susceptibility testing * ??* ??* ??* ??* ??* ??* ??* ??* ??* ??* ??* ??* ??* ??* ??* ??* ??* ??* ??* (.) JANIE LOYOLA (AMANUEL) Comment:Testing performed by : [facility], [address] [place]., [address] Organism (CLINICALLY INSIGNIFICANT GROWTH JANIE LOYOLA (AMANUEL) Organism STREPTOCOCCUS AGALACTIAE (GROUP B STREPTOCOCCI) JANIE LOYOLA (AMANUEL) Urine, clean voided 09/20/2020 1:53 PM CDT 09/20/2020 7:50 PM CDT Narrative JANIE LOYOLA (AMANUEL) - 09/22/2020 7:50 AM CDT Testing performed by [facility] Microbiology Laboratory ([phone]) Eliseo Lambert MD LAB MICROBIOLOGY - [facility] ORDERABLES Final Result [facility] ([facility]) [address] [facility] Department [place] [address] documented in this encounter Visit Diagnoses Diagnosis Vitamin D deficiency Urinary frequency documented in this encounter Care Teams Site Director Relationship Specialty Start Date End Date Eliseo Lambert MD PCP - General Family Medicine 05/21/20 06/29/23 documented as of this encounter
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
--- OUTSIDE RECORDS SUMMARY | 2024-06-25 09:54 | XMS_ITS | Encounter Summary ---
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 Vitamin-D level has improved continue with vitamin-D supplementation as much as he can. Normal blood count as well. Your cholesterol continues to rise. I know we talked about cholesterol medications on our last visit and we had decided to do lifestyle change but your cholesterol continued to rise and think we should reconsider about starting you on a cholesterol-lowering medication. The higher it gets the higherthe risk for cardiovascular disease at this time. Let me know. documented in this encounter Plan of Treatment Not on file documented as of this encounter Procedures Procedure Name Priority Date/Time Associated Diagnosis Comments EGFR Routine 01/06/2021 1:51 PM CDT Chronic RUQ pain VITAMIN D 25 HYDROXY Routine 01/06/2021 1:51 PM CDT Vitamin D deficiency CBC WITHOUT DIFFERENTIAL Routine 01/06/2021 1:51 PM CDT Chronic RUQ pain LIPASE Routine 01/06/2021 1:51 PM CDT Chronic RUQ pain LIPID PANEL Routine 01/06/2021 1:51 PM CDT Chronic RUQ pain COMPREHENSIVE METABOLIC PANEL Routine 01/06/2021 1:51 PM CDT Chronic RUQ pain documented in this encounter Results * eGFR (01/06/2021 1:51 PM CDT) [facility] eGFR 80 mL/min/1.7 3 m2 JANIE LOYOLA (AMANUEL) Comment: [...] interpretive data was last reviewed 2020 Blood specimen (specimen) 01/06/2021 1:51 PM CDT 01/06/2021 3:17 PM CDT Eliseo Lambert MD LAB BLOOD ORDERABLES Fi nal Result Performing Organization Address [facility] de Phone Number [facility]IE [facility] [address] [facility] [place] [address] * (ABNORMAL) Vitamin D 25 hydroxy (01/06/2021 1:51 PM CDT) Pathologist [facility] Vitamin D 25-OH 28(L) 30 - 80 ng/mL [facility] Blood specimen (specimen) 01/06/2021 1:51 PM CDT 01/06/2021 3:17 PM CDT Eliseo Lambert MD LAB BLOOD ORDERABLES Fi nal Result Performing Organization Address City/[facility] Co de Phone Number [facility] [address] [facility] [place] [address] * Lipase (01/06/2021 1:51 PM CDT) Pathologist [facility] Lipase 36 10 - 99 Units/L [facility] Blood specimen (specimen) 01/06/2021 1:51 PM CDT 01/06/2021 3:17 PM CDT us Eliseo Lambert MD LAB BLOOD ORDERABLES Fi nal Result JANIE LOYOLA (AMANUEL) 1 [facility] Department [place] [address] * (ABNORMAL) Lipid panel (01/06/2021 1:51 PM CDT) Cholesterol 258(H) 30 - 199 mg/dL JANIE [...] on 2018. HDL 62 >=40 mg/dL [facility] (AMANUEL) Comment: Interpretive Data Ages < [...] 2018. LDL, calculated 173(H) <=129 mg/dL [facility] ([facility]UEL) Comment: Interpretive Data Ages < [...] on 2018. Non-HDL Cholesterol 196 mg/dL [facility] ([facility]) Comment: Interpretive Data Ages < [...] PM CDT 01/06/2021 3:17 PM CDT Narrative [facility] ([facility]EL) - 01/06/2021 3:37 PM CDT Has the patient been fasting for 8 hours or more?->No Eliseo Lambert MD LAB BLOOD ORDERABLES Fi nal Result [facility] ([facility]) 1 [facility] Department [place] [address] * (ABNORMAL) CBC without differential (01/06/2021 1:51 [...] RDW SD 43.8 35.7 - 48.1 fL [facility] NRBC abs 0.00 0.00 - 0.01 K/cumm [facility] (AM[facility]) Blood specimen (specimen) 01/06/2021 1:51 PM CDT 01/06/2021 3:17 PM CDT Eliseo Lambert MD LAB BLOOD ORDERABLES Fi nal Result [facility] ([facility]) 1 [facility] [place] [address] * Comprehensive metabolic panel (01/06/2021 1:51 PM [...] Fi nal Result [facility] ([facility]EL) 1 [facility] Department [place] [address] documented in this encounter Visit Diagnoses Diagnosis Abdominal pain Abdominal pain, unspecified site Chronic RUQ pain Abdominal pain, right upper quadrant Vitamin D deficiency documented in this encounter Care Teams Railway Head Tender Relationship Specialty Start Date End Date Eliseo Lambert MD PCP - General Family Medicine 05/21/20 06/29/23 documented as of this encounter
--- OUTSIDE RECORDS SUMMARY | 2024-06-25 09:54 | XMS_ITS | Encounter Summary ---
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 Kapoor reports that she continues to experiencing aching pain along the neck and shoulders, with continued tightness as well. Pain: /10 Objective: Observation: Cervical movements continue to be slow and guarded Palpation: Trigger point activity bilateral UT. Patient reports continued tenderness to palpation as well. Treatment Provided: Modalities: -US to cervical paraspinals/UT *Attempted IFC to bilateral UT, but patient did not tolerate treatment, so treatment was stopped Manual: -STM/IASTM to UT/Rhomboids Exercise: -UBE x 4 min -Active cervical stretching 5 reps each Assessment: Ms. Kapoor tolerated treatment with no reported change in subjective complaints. Patientcontinues to be limited by subjective complaints, and by guarding of movements. Plan: Continue with POC with progressions as patient tolerates. Start Time: 1045 End Time: 1125 Paulino Walter PT documented in this encounter Plan of Treatment Not on file documented as of this encounter Visit Diagnoses Diagnosis Cervical strain, acute, initial encounter- Primary documented in this encounter Care Teams Terrazzo Mechanic Helper Relationship Specialty Start Date End Date Eliseo Lambert MD PCP - General Family Medicine 05/21/20 06/29/23 documented as of this encounter
--- OUTSIDE RECORDS SUMMARY | 2024-06-25 09:54 | XMS_ITS | Encounter Summary ---
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 Kapoor reports that she continues to experience aching pain in the neck and shoulders, and states that this limits her abilities to perform activities. States that pain increases with activity. Patient states that she purchased kinesiotape for home, but she feels the Rocktape stays on better. States that the taping helps her to feel supported. Pain: 7/10 neck Objective: Observation: Cervical movements are slow and guarded. Palpation: Trigger point activity bilateral UT left greater than right Treatment Provided: Modalities: -MHP prior to stretching -US to cervical paraspinals/UT Manual: -STM/IASTM to UT/Rhomboids -Sub Occipital release* -Neck hammock x 2 minutes* -Ktape to B UT Exercise: -UBE x 4 min* -Active cervical stretching 5 reps each* Assessment: Ms. Kapoor tolerated treatment with minimal change in subjective complaints, but is tolerant of use of edge tool, and use of kinesiotaping. Plan: Continue with POC with progressions as patient tolerates. Start Time: 829 End Time: 912 Paulino Walter PT documented in this encounter Plan of Treatment Not on file documented as of this encounter Visit Diagnoses Diagnosis Cervical strain, acute, initial encounter- Primary documented in this encounter Care Teams Agricultural Real Estate Agent Relationship Specialty Start Date End Date Eliseo Lambert MD PCP - General Family Medicine 05/21/20 06/29/23 documented as of this encounter
--- OUTSIDE RECORDS SUMMARY | 2024-06-25 09:54 | XMS_ITS | Encounter Summary ---
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 documented in this encounter Plan of Treatment Not on file documented as of this encounter Procedures Procedure Name Priority Date/Time Associated Diagnosis Comments URINE CULTURE Routine 01/06/2021 1:30 PM CDT Abdominal pain documented in this encounter Results * Urine culture Urine, clean voided (01/06/2021 1:30 PM CDT) Report Final Report: Less than 100,000 colonies/mL (clinically insignificant growth based on current clinical standards) JANIE ELIAS) Comment:Testing performed by : [facility], [address] [place] [address] Organism (CLINICALLY INSIGNIFICANT GROWTH JANIE LOYOLA (AMANUEL) Urine, clean voided 01/06/2021 1:30 PM CDT 01/06/2021 7:31 PM CDT Narrative JANIE OLYOLA (AMANUEL) - 01/07/2021 9:51 PM CDT Testing performed by [facility] Microbiology Laboratory ([phone]) us Eliseo Lambert MD LAB MICROBIOLOGY - [facility] ORDERABLES Final Result JANIE ELIAS) 1 [facility] [place] [address] documented in this encounter Visit Diagnoses Diagnosis Abdominal pain Abdominal pain, unspecified site documented in this encounter Care Teams Route Process Administrator Relationship Specialty Start Date End Date Eliseo Lambert MD PCP - General Family Medicine 05/21/20 06/29/23 documented as of this encounter
--- OUTSIDE RECORDS SUMMARY | 2024-06-25 09:54 | XMS_ITS | Encounter Summary ---
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 Kapoor reports experiencing continued aching, throbbing pain in the neck, and while pain is noticeable both sides, it is more prevalent on the left. Reports that she is experiencing difficulty with activities around the house as a result. Pain: 7/10 neck Objective: Observation: Cervical movements remain guarded at this time Palpation: Trigger point activity left UT moreso than right Treatment Provided: Modalities: -MHP prior to stretching -US to cervical paraspinals/UT Manual: -STM/IASTM to UT/Rhomboids -Sub Occipital release* -Neck hammock x 2 minutes* -Ktape to B UT* -Cupping L UT Exercise: -UBE x 4 min* -Active cervical stretching 5 reps each* *Not performed this date Assessment: Patient remains guarded during treatment. Plan: Continue with POC with reassessment next visit. Start Time: 914 End Time: 954 Paulino Walter PT documented in this encounter Plan of Treatment Not on file documented as of this encounter Visit Diagnoses Diagnosis Cervical strain, acute, initial encounter- Primary documented in this encounter Care Teams Injection Molding Machine Tender Relationship Specialty Start Date End Date Eliseo Lambert MD PCP - General Family Medicine 05/21/20 06/29/23 documented as of this encounter
--- OUTSIDE RECORDS SUMMARY | 2024-06-25 09:54 | XMS_ITS | Encounter Summary ---
Author Organization [facility] Address [address] [place] [address] Care Team Providers Care Steward/Stewardess Tourist Class Name Role Phone Eliseo Lmabert MD Primary Care Provider Reason for Visit * Reason Comments Neck Injury 4 wk f/u Encounter Details Date Type Department Care Team (Late st Contact Info) Description 03/27/2021 12:45 PM CDT Office Visit [facility] [address] [place] [address] Eliseo Lambert MD [address] [place] [address] [address] [place] [address] Cervical strain, subsequent encounter (Primary Dx); Pure hypercholesterolemia ; Hypoglycemic reaction Social History Tobacco Use Types Packs/Day Years [...] on file 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 Gender Identity Not on file Sexual Orientation Not on file 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 Not on file documented as of this encounter Last Filed Vital Signs Vital Sign Reading Time Taken Comments Blood Pressure 100/64 03/27/2021 12:59 PM CDT Pulse 91 03/27/2021 12:59 PM CDT Temperature - - Respiratory Rate 16 03/27/2021 12:59 PM CDT Oxygen Saturation 99% 03/27/2021 12:59 PM CDT Inhaled Oxygen Concentration - - Weight 55.8 kg (123 lb 1.6 oz) 03/27/2021 12:59 PM CDT Height 156.2 cm (5' 1.5 ) 03/27/2021 12:59 PM CD T Body Mass Index 22.89 03/27/2021 12:59 PM CDT documented in this encounter Ordered Prescriptions Prescription Sig Dispense Quantity Refills Last Filled Start Date End Date atorvastatin (LIPITOR) 20 mg tabletIndications:Pure hypercholesterolemia Take 1 tablet (20 mg total) by mouth daily 90 tablet 09/19/19 22 documented in this encounter Progress Notes * Eliseo Lambert MD - 03/27/2021 12:45 PM CDT Images from the original note were not included. Assessment/Plan Diagnoses and all orders for this visit: Pure hypercholesterolemia (Primary) Assessment & Plan: - noted on most recent lipid panel, per patient chronic condition - most recent LDL as shown below, worsening - previously had recommending starting cholestrol lowering medication and had opted to do lifestyleonly - at this time recommend again, patient willing - start Atorvastatin 20 mg 03/27/21 - recheck Lipid panel in 3 months - most recent LDL as shown below Lab Results Component Value Date LDLCALC 173 (H) 01/06/2021 Orders: - atorvastatin (LIPITOR) 20 mg tablet; Take 1 tablet (20 mg total) by mouth daily Hypoglycemic reaction Comments: had an episode of BG readings close to 60 even after she ate, has had anepisode before, recheck A1c Orders: - Hemoglobin A1c; Future - Comprehensive metabolic panel; Future Cervical strain, subsequent encounter Assessment & Plan: - not at goal, has greatly improved [...] lbs - follow up in 2 months Return in about 2 months (around 05/27/2021). Subjective/Objective Chief Complaint Patient presents with ??? Neck Injury 4 wk f/u HPI Kristy Kapoor is a 45 y.o. female who is here for about a week follow-up for her cervical neck strain. Patient has been monitored with me for several months now initially was having significant issues with neck stiffness and pain which has not time improved. She has completed physical therapy in our last visit about a month ago cleared her to go back to work 3 days a week with restriction of no li fting of weight over 50 lb. She has been able to work without significant issues has noted significant improvement terms of her neck pain as well as stiffness. Patient most recent lipid panel was also reviewed which showed worsening LDL. Prior to this had recommended the restarted cholesterol-lowering medication but she had opted to do lifestyle intervention but LDL has worsened to over 170 despite lifestyle intervention. I recommend that we start her on a cholesterol- lowering medication at this time. Patient has also been having some blood glucose numbers that she has checked after she has been feeling sweaty and nauseous. In the past she has had similar episodes before most recent A1c about 9 months ago which was normal. She has again noticed blood glucose that range with the 60-80 range even after few hours of eating. PHQ9 - Depression Screening tool questionnaire Over [...] pain and leg swelling. Gastrointestinal: Positive for nausea. Negative for abdominal pain and vomiting. Endocrine: +sweaty Musculoskeletal: Positive for neck pain (improved) and neck stiffness (improved). Negative for backpain and gait problem. Neurological: Positive for headaches. Negative for numbness. Psychiatric/Behavioral: Negative for dysphoric mood, hallucinations, sleep disturbance and suicidalideas. The patient is nervous/anxious (stable, chronic). Vitals: 03/27/21 1259 BP: 100/64 BP Location: Right arm Patient Position: Sitting Pulse: 91 Resp: 16 SpO2: 99% Weight: 55.8 kg (123 lb 1.6 oz) Height: 156.2 cm (5' 1.5 ) Wt Readings from Last 3 Encounters: 03/27/21 55.8 kg (123 lb 1.6 oz) 02/27/21 56.4 kg (124 lb 6.4 oz) 01/27/21 56.7 kg (125 lb) Body mass index is 22.89 kg/m??. Physical Exam Vitals reviewed. Constitutional: General: She is not in acute distress. Appearance: Normal appearance. She is not ill-appearing, toxic-appearing or diaphoretic. HENT: Head: Normocephalic. Cardiovascular: Rate and Rhythm: Normal rate. Pulses: Normal pulses. Pulmonary: Effort: Pulmonary effort is normal. No respiratory distress. Musculoskeletal: Cervical back: Spasms and tenderness present. No swelling, edema, deformity, erythema, signs of trauma, lacerations, rigidity, torticollis, bony tenderness or crepitus. No pain with movement. Normal range of motion. Skin: Findings: No rash. Neurological: General: No focal deficit present. Mental Status: She is alert and oriented to person, place, and time. Gait: Gait normal. Psychiatric: Mood and Affect: Mood normal. Behavior: Behavior normal. Thought Content: Thought content normal. Eliseo Lambert MD March 31, 2021 4:48 AM Please note: Voice recognition software Integrity Tracking Direct was used dictate and transcribe this document. Peoplesoft Hr Developer variances may occur. Despite proofreading, typographical errors may occur. documented in this encounter Miscellaneous Notes * Assessment & Plan Note - Eliseo Lambert MD - 03/31/2021 4:42 AM CDT Associated Problem(s): Cervical strain, subsequent encounter (Resolved 02/11/2022) - not at goal, has greatly improved [...] lbs - follow up in 2 months * Assessment & Plan Note - Eliseo Lambert MD - 03/31/2021 4:40 AM CDT Associated Problem(s): Pure hypercholesterolemia - noted on most recent lipid panel, per patient chronic condition - most recent LDL as shown below, worsening - previously had recommending starting cholestrol lowering medication and had opted to do lifestyleonly - at this time recommend again, patient willing - start Atorvastatin 20 mg 03/27/21 - recheck Lipid panel in 3 months - most recent LDL as shown below Lab Results Component Value Date LDLCALC 173 (H) 01/06/2021 documented in this encounter Plan of Treatment Not on file documented as of this encounter Results * Comprehensive metabolic panel (03/27/2021 1:46 PM CDT) Sodium 139 135 - 145 mmol/L [facility] ([facility]) Potassium, pl 4.0 3.3 - 4.9 mmol/L [facility] ([facility]) [...] MD LAB BLOOD ORDERABLES Fi nal Result [facility] ([facility]) [address] [facility] Department [place] [address] * Hemoglobin A1c (03/27/2021 1:46 PM CDT) Hgb A1C 5.3 4.0 - 5.6 % [facility] ([facility]) Estimated Average Glucose 105 mg/dL [facility] ([facility]) Comment: The ADA recommends reporting an estimated Average Glucose (eAG) with all Hemoglobin A1c results using the equation derived from a study of 507 normal and diabetic adults. ??Minority populations were underrepresented and children were not included. ?? (Diabetes Care 31:6463-5404, 2008). ??The eAG is not equivalent to a fasting glucose. Blood 03/27/2021 1:46 PM CDT 03/27/2021 3:15 PM CDT us Eliseo Lambert MD LAB BLOOD ORDERABLES Fi nal Result [facility] [address] [facility] Department [place] [address] documented in this encounter Visit Diagnoses Diagnosis Cervical strain, subsequent encounter- Primary Pure hypercholesterolemia Hypoglycemic reaction Hypoglycemia, unspecified documented in this encounter Care Teams Steward/Stewardess Tourist Class Relationship Specialty Start Date End Date Eliseo Lambert MD PCP - General Family Medicine 05/21/20 06/29/23 documented as of this encounter
--- OUTSIDE RECORDS SUMMARY | 2024-06-25 09:54 | XMS_ITS | Encounter Summary ---
Author Organization [facility] Healthcare Address [address] [place] [address] Care Team Providers Care Collection Card Clerk Name Role Phone Eliseo Lambert MD Primary Care Provider Reason for Visit * Reason Comments PT Treatment Encounter Details Date Type Department Care Team (Late st Contact Info) Description 03/05/2021 4:45 PM CDT Therapy [facility] Physical Therapy [address] [facility] [place] [address] Nubia Elizabeth, SENIOR MEDICAL TRANSCRIPTIONIST Cervical strain, acute, initial encounter (Primary Dx) [...] file Legal Sex Female 1:17 AM SENIOR SOFTWARE ANALYST Gender Identity Not on file Sexual Orientation Not on file 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 Pain: 6-7/10 neck Objective:see treatment below. Palpation: L UT/rhomboids moderate tightness, upper cervical minimal tightness Treatment Provided: Modalities: -MHP prior to stretching -US to cervical paraspinals/UT Manual: -STM/IASTM to UT/Rhomboids -Sub Occipital release -Neck hammock x 2 minutes* -Ktape to B UT* -Cupping L UT Exercise: -UBE x 4 min* -Active cervical stretching 5 reps each* *Not performed this date Assessment: Pt tolerates well for treatment. Pt gets most relief from cupping which has helped decrease tightness. Pt has seen her doctor and the work comp doctor-no new orders have been received. Will see 1 more visit. Plan: see 1 more visit per work comp auth .We will await any further orders at this time. Start Time: 1646 End Time: 1729 Nubia Elizabeth PTA documented in this encounter Plan of Treatment Not on file documented as of this encounter Visit Diagnoses Diagnosis Cervical strain, acute, initial encounter- Primary documented in this encounter Care Teams Collection Card Clerk Relationship Specialty Start Date End Date Eliseo Lambert MD PCP - General Family Medicine 05/21/20 06/29/23 documented as of this encounter
--- OUTSIDE RECORDS SUMMARY | 2024-06-25 09:54 | XMS_ITS | Encounter Summary ---
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 Gender Identity Not on file Sexual Orientation Not on file 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 Not on file documented as of this encounter Ordered Prescriptions Prescription Sig Dispense Quantity Refills Last Filled Start Date End Date spironolactone (ALDACTONE) 50 mg tabletIndications: Cystic acne vulgaris Take 1 tablet (50 mg total) by mouth daily 90 tablet 03/18/2021 06/18/2021 documented in this encounter Plan of Treatment Not on file documented as of this encounter Visit Diagnoses Diagnosis Cystic acne vulgaris Other acne documented in this encounter Discontinued Medications Medication Sig Discontinue Reason Start Date End Da te spironolactone (ALDACTONE) 100 mg tabletIndications:Cystic acne vulgaris Take 0.5 tablets (50 mg total) by mouth daily 09/18/2020 03/18/2021 documented as of this encounter Care Teams Nursing Education Specialist Relationship Specialty Start Date End Date Eliseo Lambert MD PCP - General Family Medicine 05/21/20 06/29/23 documented as of this encounter
--- OUTSIDE RECORDS SUMMARY | 2024-06-25 09:54 | XMS_ITS | Encounter Summary ---
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 States the pain just increases.States she is getting frustrated. Pain: 7/10 neck Objective: Observation: Cervical movements are slow and guarded. When removing tape today pt had small blisteron the L UT. Educated on no tension on the end of tape when she puts on herself at home. Palpation: Trigger point activity bilateral UT left greater than right Adding cupping along B UT-Pt tolerated well Treatment Provided: Modalities: -MHP prior to stretching -US to cervical paraspinals/UT Manual: -STM/IASTM to UT/Rhomboids -Sub Occipital release* -Neck hammock x 2 minutes* -Ktape to B UT-held this date -cupping B UT Exercise: -UBE x 4 min* -Active cervical stretching 5 reps each* Assessment:Pt tolerated treatment with minimal change in subjective complaints Plan: Continue with POC with progressions as patient tolerates. Start Time: 854 End Time: 944 Nubia Elizabeth PTA documented in this encounter Plan of Treatment Not on file documented as of this encounter Visit Diagnoses Diagnosis Cervical strain, acute, initial encounter- Primary documented in this encounter Care Teams Steam Conditioner Filling Relationship Specialty Start Date End Date Eliseo Lambert MD PCP - General Family Medicine 05/21/20 06/29/23 documented as of this encounter
--- OUTSIDE RECORDS SUMMARY | 2024-06-25 09:54 | XMS_ITS | Encounter Summary ---
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 Pain: 7/10 neck Objective: Observation: Cervical movements continue to be slow and guarded Palpation: Trigger point activity bilateral UT. Patient reports continued tenderness to palpation as well. Treatment Provided: Modalities: -MHP prior to stretching -US to cervical paraspinals/UT * *Attempted IFC to bilateral UT, but patient did not tolerate treatment, so treatment was stopped Manual: -STM/IASTM to UT/Rhomboids -Occipital release -neck hammock x 2 minutes -Ktape to B UT Exercise: -UBE x 4 min -Active cervical stretching 5 reps each Assessment: Pt tolerates well for treatment. Plan: Continue with POC with progressions as patient tolerates. Start Time: 913 End Time: 1000 Nubia Elizabeth PTA documented in this encounter Plan of Treatment Not on file documented as of this encounter Visit Diagnoses Diagnosis Cervical strain, acute, initial encounter- Primary documented in this encounter Care Teams Hygiene Teacher Relationship Specialty Start Date End Date Eliseo Lambert MD PCP - General Family Medicine 05/21/20 06/29/23 documented as of this encounter
--- OUTSIDE RECORDS SUMMARY | 2024-06-25 09:54 | XMS_ITS | Encounter Summary ---
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 Not on file Not on file documented as of this encounter Plan of Treatment Not on file documented as of this encounter Procedures Procedure Name Priority Date/Time Associated Diagnosis Comments PAP WITH REFLEX TO HIGH RISK HPV Routine 11/22/2020 11:03 AM CDT documented in this encounter Results * Pap with reflex to High Risk HPV (11/22/2020 11:03 AM CDT) Pap test 11/22/2020 11:0 3 AM CDT 11/22/2020 11:03 AM CDT Narrative 11/28/2020 12:17 PM CDT [facility] Department of Pathology [address] [place] [id number] Final Report with Addendum Patient Name: ??KRISTY ESTES Address: ??[address], ?? [place], [place] [address] Gender: ??F : ??1975 (Age: 45) Service: ??Laboratory Location: ??Lab Hospital #: ??[id number] Patient Type: ?? Ref Lab Taken: ??11/22/2020 Received: ??11/22/2020 Accessioned:: ??11/26/2020 Reported: ??11/28/2020 Physician(s): Irene Fermin F.N.P. Diagnosis: Source of Specimen: ? Imaged Thinprep Pap Test plus HPV - Motion Picture Photographer Cytologic Material Specimen Adequacy: ?- Satisfactory for [...] Imaged Thinprep Pap Test plus HPV - Motion Picture Photographer Cytologic Material Clinical History: Last Menstrual Period: [...] determined by the Surgical Pathology Department at [facility] as part of an ongoing environmental quality analyst program and in compliance with federally mandated [...] characteristics determined by the Surgical Pathology Department [facility]. ??It has not been cleared or approved by the U. S. Food and Drug Administration. Olivia Christine SUPERINTENDENT [employer]ATING [employer] LAB CYTOLOGY ORDERABLES Final Re sult documented in this encounter Visit Diagnoses Not on filedocumented in this encounter Care Teams Wool Dyer Relationship Specialty Start Date End Date Eliseo Lambert MD PCP - General Family Medicine 05/21/20 06/29/23 documented as of this encounter
--- OUTSIDE RECORDS SUMMARY | 2024-06-25 09:55 | XMS_ITS | Encounter Summary ---
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 documented in this encounter Plan of Treatment Not on file documented as of this encounter Procedures Procedure Name Priority Date/Time Associated Diagnosis Comments EGFR Routine 09/18/2020 4:32 PM CDT Other fatigue THYROID FUNCTION CASCADE Routine 09/18/2020 4:32 PM CDT Other fatigue HEPATITIS C ANTIBODY Routine 09/18/2020 4:32 PM CDT Need for hepatitis C screening test VITAMIN D 25 HYDROXY Routine 09/18/2020 4:32 PM CDT Other fatigue CBC WITHOUT DIFFERENTIAL Routine 09/18/2020 4:32 PM CDT Other fatigue FOLATE Routine 09/18/2020 4:32 PM CDT Other fatigue VITAMIN B12 Routine 09/18/2020 4:32 PM CDT Other fatigue LIPID PANEL Routine 09/18/2020 4:32 PM CDT Other fatigue COMPREHENSIVE METABOLIC PANEL Routine 09/18/2020 4:32 PM CDT Other fatigue documented in this encounter Results * eGFR (09/18/2020 4:32 PM CDT) eGFR 68 mL/min/1.7 3 m2 JANIE LO[facility]OL[facility] (AMANUEL) Comment: [...] was last reviewed 2020 Blood specimen (specimen) 09/18/2020 4:32 PM CDT 09/18/2020 5:24 PM CDT us Eliseo Lambert MD LAB BLOOD ORDERABLES Fi nal Result JANIE LOYOLA (AMANUEL) 1 [facility] Department [place] [address] * (ABNORMAL) Lipid panel (09/18/2020 4:32 PM CDT) Cholesterol 246(H) 30 - 199 mg/dL JANIE LOYOLA (AAMNUEL) Comment: Interpretive Data Ages < or = [...] Data was last revised on 2018. Triglycerides 129 <=149 mg/dL JANIE ELIAS) Comment: Interpretive Data Ages [...] Data was last revised on 2018. HDL 70 >=40 mg/dL JANIE LOYOLA (AMANUEL) Comment: Interpretive [...] was last revised on 2018. LDL, calculated 150(H) <=129 mg/dL JANIE LOYOLA (AMANUEL) Comment: Interpretive [...] was last revised on 2018. Non-HDL Cholesterol 176 mg/dL [facility]AN[facility] (AMANUEL) Comment: Interpretive Data [...] last revised on 2018. Chol/HDL ratio 4 CHARLIE LOYOLA (AMANUEL) Blood specimen (specimen) 09/18/2020 4:32 PM CDT 09/18/2020 5:24 PM CDT Narrative JANIE LOYOLA (AMANUEL) - 09/18/2020 5:55 PM CDT Has the patient been fasting for 8 hours or more?->No us Eliseo Lambert MD LAB BLOOD ORDERABLES Fi nal Result JANIE LOYOLA (AMANUEL) 1 [facility] Department [place] [address] * Hepatitis C antibody (09/18/2020 4:32 PM CDT) Pathologist [facility] Hep C Ab Nonreactive Nonreactive JANIE LOYOLA (PECOS) Comment: Interpretive Data Nonreactive: Antibodies to HCV [...] last revised on 2019. Testing performed by: [facility], [address] [place] [address]., [id number] Blood specimen (specimen) 09/18/2020 4:32 PM CDT 09/19/2020 2:37 PM CDT Eliseo Lambert MD LAB MICROBIOLOGY - GENE RAL ORDERABLES Final Result Performing Organization Address City/[facility]/ZIP Co de Phone Number [facility] (AMANUEL) 1 [facility] [place] [address] * (ABNORMAL) Vitamin D 25 hydroxy (09/18/2020 4:32 PM CDT) Pathologist [facility] Vitamin D 25-OH 17(L) 30 - 80 ng/mL [facility] (AMANUEL) Blood specimen (specimen) 09/18/2020 4:32 PM CDT 09/18/2020 5:24 PM CDT Eliseo Lambert MD LAB BLOOD ORDERABLES Fi nal Result [facility] (AMANUEL) 1 [facility] [place] [address] * Comprehensive metabolic panel (09/18/2020 4:32 PM CDT) Sodium 137 135 - 145 mmol/L [facility] (AMANUEL) Potassium, pl 4.3 3.3 - 4.9 mmol/L [facility] (AMANUEL) Chloride 99 97 - 110 mmol/L [facility] (AMANUEL) CO2 27 22 - 32 mmol/L [facility] (AM[facility]) Anion gap 11 2 - 15 mmol/L [facility] (AMANUEL) BUN 18 8 - 25 mg/dL [facility] (AMANUEL) Creatinine 0.99 0.60 - 1.10 mg/dL [facility] (AMANUEL) Glucose 87 70 - 199 mg/dL [facility] (AMANUEL) [...] 2017. Calcium 9.6 8.5 - 10.3 mg/dL [facility] ([facility] Bilirubin, total <0.2 0.1 - 1.2 mg/dL [facility] ([facility]) Protein, pl 7.6 6.5 - 8.5 g/dL [facility] ([facility]) Albumin 4.5 3.5 - 5.0 g/dL [facility] ([facility] Alk phos 83 40 - 130 Units/L [facility] (AMANUEL) ALT 21 7 - 45 Units/L [facility] (AMANUEL) AST 24 10 - 45 Units/L [facility] (AMANUEL) Comment:Slightly Hemolyzed S pecimen Blood specimen (specimen) 09/18/2020 4:32 PM CDT 09/18/2020 5:24 PM CDT us Eliseo Lambert MD LAB BLOOD ORDERABLES Fi nal Result [facility] (AMANUEL) 1 [facility] Department [place] [address] * (ABNORMAL) CBC without differential (09/18/2020 4:32 PM CDT) WBC 7.5 3.8 - 9.9 K/cumm [facility] ([facility] Hgb 12.3 11.9 - 15.5 g/dL [facility] (AMANUEL) Hct 37.4 35.6 - 45.5 % [facility] (AMANUEL) Plt 252 150 - 400 K/cumm [facility] (AMANUEL) MPV 10.3 9.1 - 12.3 fL [facility] (AMANUEL) RBC 3.77(L) 3.90 - 5.20 M/cumm [facility] (AMANUEL) MCV 99.2(H) 81.3 - 96.4 fL [facility] (AMANUEL) MCH 32.6 27.1 - 33.3 pg [facility] (AMANUEL) MCHC 32.9 32.3 - 35.7 g/dL [facility] (AMANUEL) RDW CV 12.4 11.1 - 14.9 % [facility] (AMANUEL) RDW SD 45.1 35.7 - 48.1 fL [facility] (AMANUEL) NRBC abs 0.00 0.00 - 0.01 K/cumm [facility] (AMANUEL) Blood specimen (specimen) 09/18/2020 4:32 PM CDT 09/18/2020 5:24 PM CDT us Eliseo Lambert MD LAB BLOOD ORDERABLES Fi nal Result [facility] (AMANUEL) 1 [facility] [place] [address] * TSH reflex to free T4 (09/18/2020 4:32 PM CDT) TSH 2.39 0.30 - 4.20 mcIUnit/mL [facility] (AMANUEL) Blood specimen (specimen) 09/18/2020 4:32 PM CDT 09/18/2020 5:24 PM CDT Eliseo Lambert MD LAB BLOOD ORDERABLES Fi nal Result [facility] (AMANUEL) 1 [facility] [place] [address] * Folate (09/18/2020 4:32 PM CDT) Folic acid 11.8 >=5.0 ng/mL JANIE LOYOLA (AMANUEL) Comment: Hemolysis present. ??Results may be affected. Testing performed by: [facility], [address] [place] [address], [address] Blood specimen (specimen) 09/18/2020 4:32 PM CDT 09/19/2020 2:37 PM CDT Eliseo Lambert MD LAB BLOOD ORDERABLES Fi nal Result Performing Organization Address City/[facility]/ZIP Co de Phone Number JANIE LOYOLA (AMANUEL) 1 [facility] [place] [address] * Vitamin B12 (09/18/2020 4:32 PM CDT) Pathologist [facility] Vitamin B12 426 230 - 1,250 pg/mL JANIE LOYOLA (AMANUEL) Comment:Testing performed by : [facility], [address] [place] [place] [address], [address] Blood specimen (specimen) 09/18/2020 4:32 PM CDT 09/19/2020 2:37 PM CDT Eliseo Lambert MD LAB BLOOD ORDERABLES Fi nal Result Performing Organization Address City/[facility]/ZIP Co de Phone Number JANIE LOYOLA (AMANUEL) 1 [facility] [place] [address] documented in this encounter Visit Diagnoses Diagnosis Other fatigue Need for hepatitis C screening test Special screening examination for other specified viral diseases documented in this encounter Care Teams Senior Managing Director Relationship Specialty Start Date End Date Eliseo Lambert MD PCP - General Family Medicine 05/21/20 06/29/23 documented as of this encounter
--- OUTSIDE RECORDS SUMMARY | 2024-06-25 09:55 | XMS_ITS | Encounter Summary ---
Author Organization [facility] Healthcare Address [address] [place] [address] Care Team Providers Care Dental Laboratory Technology Teacher Name Role Phone Eliseo Lambert MD Primary Care Provider Encounter Details Date Type Department Care Team (Late st Contact Info) Description 06/24/2020 Telephone [facility] [address] [place] [address] Room [address] (Third Floor) [place] [address] Jessi Han September Social History Tobacco Use Types Packs/Day Years Used Date Smoking Tobacco: Former Smokeless Tobacco: Never Alcohol Use Standard Drinks/Week Comments No 0 (1 standard drink = 0.6 oz pur e alcohol) PHQ-2 Answer Date Recorded PHQ-2 Total Score (If total score is 3 or more points, staff should administer the PHQ-9) 6 05/21/2020 Comments No Sex and Gender Information Value Date Recorded Sex Assigned at Not on file 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 Asymptomatic. Public health required testing due to exposure. P STICKER documented in this encounter Plan of Treatment Not on file documented as of this encounter Visit Diagnoses Diagnosis Exposure to COVID-19 virus- Primary documented in this encounter Additional Health Concerns Infection Onset Date Last Indicated Resolved Time Exposure, COVID-19 Comment:Added automatically based on COVID19 lab answers indicating exposure risk 06/10/2020 06/10/2020 06/25/2020 3:[address] documented as of this encounter Care Teams Dental Laboratory Technology Teacher Relationship Specialty Start Date End Date Eliseo Lambert MD PCP - General Family Medicine 05/21/20 06/29/23 documented as of this encounter
--- OUTSIDE RECORDS SUMMARY | 2024-06-25 09:55 | XMS_ITS | Encounter Summary ---
Author Organization [facility] Address [address] [place] [address] Care Team Providers Care Hands Parter Name Role Phone Eliseo Lambert MD Primary Care Provider Reason for Visit * Reason Comments Urinary Frequency Encounter Details Date Type Department Care Team (Latest Contact Info) Description 09/20/2020 11:00 AM CDT Office Visit [facility] [address] [facility] [address] [place] [address] Eliseo Lambert MD [address] [place] [address] [address] [place] [address] Urinary frequency (Primary Dx); Vitamin D deficiency; CKD (chronic kidney disease) stage 2, GFR 60-89 ml/min; Pure hypercholesterolemia Social History Tobacco Use Types [...] on file Legal Sex Female 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 Gender Identity Not on file Sexual Orientation Not on file 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 Not on file Not on file documented as of this encounter Last Filed Vital Signs Vital Sign Reading Time Taken Comments Blood Pressure 102/76 09/20/2020 11:00 AM CDT Pulse 87 09/20/2020 11:00 AM CDT Temperature 36.2 ??C (97.2 ??F) 09/20/2020 11:00 AM C DT Respiratory Rate - - Oxygen Saturation 94% 09/20/2020 11:00 AM CDT Inhaled Oxygen Concentration - - Weight 59.6 kg (131 lb 6.4 oz) 09/20/2020 11:00 AM CDT Height 160.5 cm (5' 3.19 ) 09/20/2020 11:00 AM C DT Body Mass Index 23.14 09/20/2020 11:00 AM CDT documented in this encounter Ordered Prescriptions Prescription Sig Dispense Quantity Refills Last Filled Start Date End Date cholecalciferol (VITAMIN D-3) 2000 unit tabletIndications: Vitamin D Deficiency Take 1 tablet (2,000 Units total) by mouth daily Pleas take after finishing 12 weeks of high dose vitamin D (50,000 units/week) therapy 180 tablet 3 09/20/2020 2 ergocalciferol (VITAMIN D) 50,000 unit capsuleIndications :Vitamin D Deficiency Take 1 capsule (50,000 Units total) by mouth once a week 12 capsule 09/20/2020 1 documented in this encounter Progress Notes * Eliseo Lambert MD - 09/20/2020 11:00 AM CDT Images from the original note were not included. Assessment/Plan Diagnoses and all orders for this visit: Urinary frequency (Primary) Comments: mild symptoms, POC urine testing did not show any findings, will send urine for culture Orders: - POCT UA, AUTO W/O SCOPE - Urine culture Urine, clean voided; Future Vitamin D deficiency Assessment & Plan: - Noted on 08/2020 - Vit D Level 17 - discussed new finding of vitamin D deficiency - it can be associated with fatigue and tiredness and muscle ache - see orders placed for this Orders: - ergocalciferol (VITAMIN D) 50,000 unit capsule; Take 1 capsule (50,000 Units total) by mouth oncea week - Vitamin D 25 hydroxy; Future - cholecalciferol (VITAMIN D-3) 2000 unit tablet; Take 1 tablet (2,000 Units total) by mouth daily Pleas take after finishing 12 weeks of high dose vitamin D (50,000 units/week) therapy CKD (chronic kidney disease) stage 2, GFR 60-89 ml/min Assessment & Plan: - medical chart reviewed - patient states she has family hx of kidney disease in her Paternal Aunt, Paternal grandmother andPaternal Uncle - currently she has CKD stage 2 - unclear why given no significant risk factors in her - will consider obtaining US of kidneys in future Pure hypercholesterolemia Assessment & Plan: - noted on most [...] made to defer it at this time No follow-ups on file. Subjective/Objective Chief Complaint Patient presents with ??? Urinary Frequency Urinary Frequency This is a new problem. The current episode started 1 to 4 weeks ago. The problem occurs intermittently. The pain is mild. There has been no fever. There is no history of pyelonephritis. Associated symptoms include frequency. Pertinent negatives include no chills, flank pain, hematuria, nausea, urgency or vomiting. She has tried nothing for the symptoms. Her past medical history is significant forrecurrent UTIs. Kristy Kaporo is a 45 y.o. female. Discussed with patient most recent lab test results which includes vitamin-D deficiency which was noted with vitamin-D level of about 17. Patient will be started on a vitamin-D supplementation. Please see orders for more detail. Patient was also noted to have chronic kidney disease of stage II. Patient states she has significant family history of chronic kidney disease as well as diabetes. She has gained disease in her paternal aunt, paternal grandmother, paternal uncle at the result she like to try to prevent much as possible. Patient without depression that continued soda drinking would be causing to the kidney damage as does was she was told by her family members as well. Patient was also noted to have elevated LDL which is somewhat chronic to her. At this time patient would defer to be started on cholesterol-lowering medication. The 10-year ASCVD risk score (Dianne DC Jr., et al., 2013) is: 0.6% Values used to calculate the score: Age: 45 years Sex: Female Is Non- : No Diabetic: No Tobacco smoker: No Systolic Blood Pressure: 102 mmHg Is BP treated: No HDL Cholesterol: 70 mg/dL Total Cholesterol: 246 mg/dL Labs: Recent Labs Lab Units 09/18/20 1632 SODIUM mmol/L 137 POTASSIUM PLASMA mmol/L 4.3 CHLORIDE mmol/L 99 CO2 mmol/L 27 BUN SERUM mg/dL 18 CREATININE mg/dL 0.99 [id number] mL/min/1.73 m2 68 GLUCOSE mg/dL 87 CALCIUM mg/dL 9.6 ALBUMIN g/dL 4.5 @ Recent Labs Lab Units 09/18/20 1632 WBC K/cumm 7.5 HEMOGLOBIN g/dL 12.3 HEMATOCRIT % 37.4 PLATELETS K/cumm 252 Lab Results Component Value Date CHOL 246 (H) 09/18/2020 TRIG 129 09/18/2020 HDL 70 09/18/2020 Lab Results Component Value Date TSH 2.39 09/18/2020 Lab Results Component Value Date HGBA1C 5.3 05/30/2020 No results found for: [id number] No results found for: PSA Review of Systems Constitutional: Positive for fatigue. Negative for chills and fever. Gastrointestinal: Positive for abdominal pain. Negative for nausea and vomiting. Genitourinary: Positive for frequency. Negative for difficulty urinating, dysuria, enuresis, flank pain, hematuria and urgency. Vitals: 09/20/20 1100 BP: 102/76 BP Location: Right arm Patient Position: Sitting Pulse: 87 Temp: 36.2 ??C (97.2 ??F) TempSrc: Temporal SpO2: 94% Weight: 59.6 kg (131 lb 6.4 oz) Height: 160.5 cm (5' 3.19 ) Wt Readings from Last 3 Encounters: 09/20/20 59.6 kg (131 lb 6.4 oz) 09/18/20 58.7 kg (129 lb 6.4 oz) 06/06/20 60 kg (132 lb 3.2 oz) Body mass index is 23.14 kg/m??. Physical Exam Vitals reviewed. Constitutional: General: She is not in acute distress. Appearance: She is not ill-appearing, toxic-appearing or diaphoretic. HENT: Head: Normocephalic. Cardiovascular: Rate and Rhythm: Normal rate. Pulmonary: Effort: Pulmonary effort is normal. No respiratory distress. Abdominal: General: There is no distension. Palpations: There is no mass. Tenderness: There is abdominal tenderness (RUQ). There is no right CVA tenderness, left CVA tenderness, guarding or rebound. Hernia: No hernia is present. Neurological: General: No focal deficit present. Mental Status: She is alert and oriented to person, place, and time. Mental status is at baseline. Psychiatric: Mood and Affect: Mood normal. Thought Content: Thought content normal. Judgment: Judgment normal. Results for orders placed or performed in visit on 09/20/20 POCT UA, AUTO W/O SCOPE Result Value Ref Range Color, Urine, POC Yellow Clarity, ur, POC Clear Clear Glucose, ur, POC Negative Negative mg/dL Bilirubin, ur, POC Negative Negative, Small, Moderate, Large Ketones, ur, POC Negative Negative Specific Com[place], POC 1.030 1.005 - 1.030 Blood, ur, POC Negative Negative pH, ur, POC 5.5 5.0 - 8.0 Protein, ur, POC Negative Negative Urobilinogen, Urine, POC 0.2 mg/dL Leukocytes, ur, POC Negative Negative Nitrite, ur, POC Negative Negative Appearance, fld Clear Clear No abnormal findings noted on test results. Eliseo Lambert MD September 20, 2020 12:32 PM Please note: Voice recognition software [employer] Direct was used dictate and transcribe this document. Shirt Ironer Supervisor variances may occur. Despite proofreading, typographical errors may occur. documented in this encounter Miscellaneous Notes * Assessment & Plan Note - Eliseo Lambert MD - 09/20/2020 12:30 PM CDT Associated Problem(s): Pure hypercholesterolemia - noted on most recent lipid panel, per patient chronic condition - LDL 150 - The 10-year ASCVD risk score (Scottsburgmikey GHOTRA Jr., et al., 2013) is: 0.6% Values used [...] made to defer it at this time * Assessment & Plan Note - Eliseo Lambert MD - 09/20/2020 12:25 PM CDT Associated Problem(s): CKD (chronic kidney disease) stage 2, GFR 60-89 ml/min - medical chart reviewed - patient states she has family hx of kidney disease in her Paternal Aunt, Paternal grandmother andPaternal Uncle - currently she has CKD stage 2 - unclear why given no significant risk factors in her - will consider obtaining US of kidneys in future * Assessment & Plan Note - Eliseo Lambert MD - 09/20/2020 12:24 PM CDT Associated Problem(s): Vitamin D deficiency - Noted on 08/2020 - Vit D Level 17 - discussed new finding of vitamin D deficiency - it can be associated with fatigue and tiredness and muscle ache - see orders placed for this * Addendum Note - Sophie Rojas CLT - 09/20/2020 11:00 AM CDTAddended by: SOPHIE ROJAS on: 09/20/2020 01:53 PM Modules accepted: Orders documented in this encounter Plan of Treatment Not on file documented as of this encounter Procedures Procedure Name Priority Date/Time Associated Diagnosis Comments POCT URINALYSIS, AUTO W/O SCOPE Routine 09/20/2020 11:41 AM CDT Urinary frequency documented in this encounter Results * (ABNORMAL) Vitamin D 25 hydroxy (01/06/2021 1:51 PM CDT) Vitamin D 25-OH 28(L) 30 - 80 ng/mL [facility] (AMANUEL) Blood specimen (specimen) 01/06/2021 1:51 PM CDT 01/06/2021 3:17 PM CDT us Eliseo Lambert MD LAB BLOOD ORDERABLES Fi nal Result JANIE LOYOLA (AMANUEL) [address] [facility] [place] [address] * (ABNORMAL) Urine culture Urine, clean voided [...] allergic patients, please contact the laboratory at [phone] to request susceptibility testing * ??* ??* ??* ??* ??* ??* ??* ??* ??* ??* ??* ??* ??* ??* ??* ??* ??* ??* ??* (.) JANIE LOYOLA (AMANUEL) Comment:Testing performed by : [facility], [address] [facility], [place]., [address] Organism (CLINICALLY INSIGNIFICANT GROWTH JANIE LOYOLA (AMANUEL) Organism STREPTOCOCCUS AGALACTIAE (GROUP B STREPTOCOCCI) JANIE GusmanAMANUEL) Urine, clean voided 09/20/2020 1:53 PM CDT 09/20/2020 7:50 PM CDT Narrative YAWILMER ELIAS) - 09/22/2020 7:50 AM CDT Testing performed by [facility] Microbiology Laboratory ([phone]) us Eliseo Lambert MD LAB MICROBIOLOGY - GENE [facility] ORDERABLES Final Result JANIE ELIAS) [address] [facility] [place] [address] * POCT UA, AUTO W/O SCOPE (09/20/2020 11:41 AM CDT) Color, Urine, POC Yellow Clarity, ur, POC Clear Clear Glucose, ur, POC Negative Negative mg/dL Bilirubin, ur, POC Negative Negative, Small, Moderate, Large Ketones, ur, POC Negative Negative Specific [place], POC 1.030 1.005 - 1.030 Blood, ur, POC Negative Negative pH, ur, POC 5.5 5.0 - 8.0 Protein, ur, POC Negative Negative Urobilinogen, Urine, POC 0.2 mg/dL Leukocytes, ur, POC Negative Negative Nitrite, ur, POC Negative Negative Appearance, fld Clear Clear Urine, clean voided 09/20/2020 11:41 AM CDT us Eliseo Lambert MD POINT OF CARE TEST ORDE RABFARRAH Final Result documented in this encounter Visit Diagnoses Diagnosis Urinary frequency- Primary Vitamin D deficiency CKD (chronic kidney disease) stage 2, GFR 60-89 ml/min Chronic kidney disease, Stage II (mild) Pure hypercholesterolemia Vitamin D deficiency Urinary frequency documented in this encounter Historical Medications * This list may reflect changes made after this encounter. Medication Sig Dispense Quantity Refills Last Filled Start D ate End Date OneTouch Verio Flex meter misc 09/19/2020 added in this encounter Care Teams Hands Parter Relationship Specialty Start Date End Date Eliseo Lambert MD PCP - General Family Medicine 05/21/20 06/29/23 documented as of this encounter
--- OUTSIDE RECORDS SUMMARY | 2024-06-25 09:55 | XMS_ITS | Encounter Summary ---
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 Martins' office to get an appointment. She also statesshe ran out of test strips to check her blood sugar, she is unsure on the machine that we gave her and will call back once she checks on the machine. * Telephone Encounter - Merle Mcclendon MA - 2020 11:53 AM CDT Lm for Kristy to contact the office. * Telephone Encounter - Eliseo Lambert MD - 09/12/2020 11:03 AM CDT Sorry to hear that. In the past she requested referral to Endocrinology which we ddi place. We had also given her supplies to test her BG. So she should check it and let our office know. * Telephone Encounter - Merle Mcclendon MA - 09/12/2020 8:20 AM CDT Kristy contacted the office she states she has not been feeling well overall, she feels like her glucose is dropping. She feels shaky, light headed, and when she eats she doesn't feel like she bounces back like she used too. She also states she has tingling in her feet and hands, it never goes away. She also states she has kidney trouble. documented in this encounter Plan of Treatment Not on file documented as of this encounter Visit Diagnoses Not on filedocumented in this encounter Care Teams Farm Machinery Erector Relationship Specialty Start Date End Date Eliseo Lambert MD PCP - General Family Medicine 05/21/20 06/29/23 documented as of this encounter
--- OUTSIDE RECORDS SUMMARY | 2024-06-25 09:55 | XMS_ITS | Encounter Summary ---
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 Asymptomatic. Public health required testing due to exposure. [employer] documented in this encounter Plan of Treatment Not on file documented as of this encounter Visit Diagnoses Diagnosis Exposure to COVID-19 virus- Primary documented in this encounter Additional Health Concerns Infection Onset Date Last Indicated Resolved Time Exposure, COVID-19 Comment:Added automatically based on COVID19 lab answers indicating exposure risk 06/10/2020 06/10/2020 06/25/2020 3:[address] Exposure, COVID-19 Comment:Added automatically based on COVID19 lab answers indicating exposure risk 06/25/2020 06/25/2020 07/10/2020 3:[address] documented as of this encounter Care Teams Hop Strainer Relationship Specialty Start Date End Date Eliseo Lambert MD PCP - General Family Medicine 05/21/20 06/29/23 documented as of this encounter
--- OUTSIDE RECORDS SUMMARY | 2024-06-25 09:55 | XMS_ITS | Encounter Summary ---
Author Organization [facility] Address [address] [place] [address] Care Team Providers Care Staff Development Coordinator Name Role Phone Eliseo Lambert MD Primary Care Provider Reason for Visit * Reason Comments Hyperlipidemia 3 mo fu Anxiety/Depression Encounter Details Date Type Department Care Team (Late st Contact Info) Description 09/18/2020 3:30 PM CDT Office Visit [facility] [address] [place] [address] Eliseo Lambert MD [address] [place] [address] [address] [place] [address] Other fatigue (Primary Dx); BMI 22.0-22.9, adult; Need for hepatitis C screening test; Cystic acne vulgaris; Diarrhea due to malabsorption Social History Tobacco Use Types Packs/Day Years Used Date Smoking Tobacco: Former Smokeless Tobacco: Never Alcohol Use Standard Drinks/Week Comments No 0 (1 standard drink = 0.6 oz pur e alcohol) PHQ-2 Answer Date Recorded PHQ-2 Total Score (If total score is 3 or more points, staff should administer the PHQ-9) 0 09/18/2020 Comments No Sex and Gender Information Value Date Recorded Sex Assigned at Not on file Legal Sex Female 1:17 AM COMMUTATOR INSPECTOR Gender Identity Not on file Sexual Orientation Not on file 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 Not on file Not on file documented as of this encounter Last Filed Vital Signs Vital Sign Reading Time Taken Comments Blood Pressure 92/66 09/18/2020 3:26 PM CDT Pulse 94 09/18/2020 3:26 PM CDT Temperature 36.2 ??C (97.1 ??F) 09/18/2020 3:26 PM CD T Respiratory Rate - - Oxygen Saturation 95% 09/18/2020 3:26 PM CDT Inhaled Oxygen Concentration - - Weight 58.7 kg (129 lb 6.4 oz) 09/18/2020 3:26 P M CDT Height 160.5 cm (5' 3.19 ) 09/18/2020 3:26 PM CD T Body Mass Index 22.79 09/18/2020 3:26 PM CDT documented in this encounter Ordered Prescriptions Prescription Sig Dispense Quantity Refills Last Filled Start Date End Date blood glucose diagnostic stripIndications: type 2 diabetes mellitus Please use twice daily to check BG measurements with compatible glucometer. 100 each 1 09/18/2020 spironolactone (ALDACTONE) 100 mg tabletIndications :Cystic acne vulgaris Take 0.5 tablets (50 mg total) by mouth daily 90 tablet 09/18/2020 documented in this encounter Progress Notes * Eliseo Lambert MD - 09/18/2020 3:30 PM CDT Images from the original note were not included. Assessment/Plan Diagnoses and all orders for this visit: Other fatigue (Primary) - Vitamin B12; Future - Folate; Future - TSH reflex to free T4; Future - CBC without differential; Future - Comprehensive metabolic panel; Future - Vitamin D 25 hydroxy; Future - Lipid panel; Future - blood glucose diagnostic strip; Please use twice daily to check BG measurements with compatible glucometer. BMI 22.0-22.9, adult Need for hepatitis C screening test - Hepatitis C antibody; Future Cystic acne vulgaris Assessment & Plan: - used to follow with dermatology - she has used isotretinoin before - she understands the risks of lowering BP with the medication - Spirinolactone 100 mg daily - recommend that patient start takign half of the 100 mg Spironolactone moving forward Orders: - spironolactone (ALDACTONE) 100 mg tablet; Take 0.5 tablets (50 mg total) by mouth daily Diarrhea due to malabsorption Assessment & Plan: - since she had cholecystectomy - worse with fatty foods - does not use medication for it, aware she can use Imodium and other options for it Return in about 3 months (around 12/19/2020). She will be scheduled for well woman exam with Olivia Christine DNP. Subjective/Objective Chief Complaint Patient presents with ??? Hyperlipidemia 3 mo fu ??? Anxiety/Depression HPI Kristy Kapoor is a 45 y.o. female with known anxiety, depression currently follows up with psychiatry in being managed by them. She is currently on Wellbutrin and clonazepam for her depression anxiety. She has mild hyperlipidemia which does not require the use of a cholesterol-lowering medication at this time period. CVD score was quite low. Patient overall has been feeling a bit tired and fatigued. Is not new to her and at time she has even had some lightheadedness. She states she has not been able to check her blood sugar lately as shehas been out of her testing strips. She has family history of diabetes is concerned about that. Shealso has some heartburn his along with some nausea but very infrequent. She has alternating diarrhea and constipation. She she feels like the diarrhea secondary to her gallbladder being removed in the past. Fatty food does seem to induce her diarrhea. PHQ9 Screening Over the last 2 weeks, how often [...] Down, Depressed, or Hopeless: Not at all Interpretation of PHQ9 Total Score 1-4 = Minimal depression 5-9 = Mild depression 10-14 = Moderate depression 15-19 = Moderately severe depression 20-27 = Severe depression NANO-7 Feeling nervous, anxious, or on edge: Several days Not being able to stop or control worrying: Several days Worrying too much about different things: Several days Trouble relaxing: Several days Being so restless that it's hard to sit still: Not at all sure Becoming easily annoyed or irritable: Not at all sure Feeling afraid as if something awful might happen: Several days Total Score: 5 If you checked off any problems, how difficult have these made it for you to do your work, take care of things at home, or get along with other people?: Not difficult at all Interpretation of NANO-7 Total Score 5-9 = Mild Anxiety 10-14 = Moderate Anxiety >=15 = Severe Anxiety When used as a screening tool, further evaluation is recommended when the score is 10 or greater. Labs: Lab Results Component Value Date CHOL 215 (H) 03/03/2020 TRIG 97 03/03/2020 HDL 63 03/03/2020 Lab Results Component Value Date TSH 2.95 09/30/2017 Lab Results Component Value Date HGBA1C 5.3 05/30/2020 Review of Systems Constitutional: Positive for fatigue. Negative for chills and fever. Respiratory: Negative for cough, shortness of breath and wheezing. Cardiovascular: Negative for chest pain and palpitations. Gastrointestinal: Positive for abdominal pain (epigastric at time, very infrequent), constipation, diarrhea (alternates) and nausea. Negative for anal bleeding, rectal pain and vomiting. +mild heartburn at times Psychiatric/Behavioral: Positive for dysphoric mood (controlled) and sleep disturbance (wakes up 2-3 times a night but able to fall back to sleep). The patient is nervous/anxious (controlled). Vitals: 09/18/20 1526 BP: 92/66 BP Location: Right arm Patient Position: Sitting Pulse: 94 Temp: 36.2 ??C (97.1 ??F) TempSrc: Temporal SpO2: 95% Weight: 58.7 kg (129 lb 6.4 oz) Height: 160.5 cm (5' 3.19 ) Wt Readings from Last 3 Encounters: 09/18/20 58.7 kg (129 lb 6.4 oz) 06/06/20 60 kg (132 lb 3.2 oz) 05/21/20 58.5 kg (129 lb) Body mass index is 22.79 kg/m??. Physical Exam Constitutional: General: She is not in acute distress. Appearance: She is not ill-appearing, toxic-appearing or diaphoretic. Cardiovascular: Rate and Rhythm: Normal rate. Pulmonary: Effort: Pulmonary effort is normal. No respiratory distress. Breath sounds: No wheezing. Neurological: General: No focal deficit present. Mental Status: She is oriented to person, place, and time. Gait: Gait normal. Comments: Strength Right Upper Extremity - 4/5 Left Upper Extremity - 5/5 Right Lower Extremity - 4/5 Left Lower Extremity - 5/5 Psychiatric: Mood and Affect: Mood normal. Behavior: Behavior normal. Thought Content: Thought content normal. Eliseo Lambert MD September 18, 2020 4:16 PM Please note: Voice recognition software Songza Direct was used dictate and transcribe this document. Bottle Capping Machine Operator variances may occur. Despite proofreading, typographical errors may occur. documented in this encounter Miscellaneous Notes * Assessment & Plan Note - Eliseo Lambert MD - 09/18/2020 4:11 PM CDT Associated Problem(s): Alternating constipation and diarrhea - since she had cholecystectomy - worse with fatty foods - does not use medication for it, aware she can use Imodium and other options for it * Assessment & Plan Note - Eliseo Lambert MD - 09/18/2020 4:08 PM CDT Associated Problem(s): Cystic acne vulgaris - used to follow with dermatology - she has used isotretinoin before - she understands the risks of lowering BP with the medication - Spirinolactone 100 mg daily - recommend that patient start takign half of the 100 mg Spironolactone moving forward documented in this encounter Plan of Treatment Not on file documented as of this encounter Results * (ABNORMAL) Lipid panel (09/18/2020 4:32 PM CDT) Cholesterol 246(H) 30 - 199 mg/dL [facility] ([place]) [...] on 2018. Triglycerides 129 <=149 mg/dL [facility] ([place]) Comment: Interpretive [...] 09/18/2020 5:24 PM CDT Narrative [facility] ([place]) - 09/18/2020 5:55 PM CDT Has the patient been fasting for 8 hours or more?->No Eliseo Lambert MD LAB BLOOD ORDERABLES Fi nal Result Performing Organization Address City/[facility]/ZIP Co de Phone Number [facility] ([place]) 1 [place] [address] * Hepatitis C antibody (09/18/2020 4:32 PM CDT) Hep C Ab Nonreactive Nonreactive [facility] ([place]) Comment: Interpretive Data Nonreactive: Antibodies to HCV [...] last revised on 2019. Testing performed by: [facility], [address] [place] [address]., [id number] Blood specimen (specimen) 09/18/2020 4:32 PM CDT 09/19/2020 2:37 PM CDT Eliseo Lambert MD LAB MICROBIOLOGY - GENE RAL ORDERABLES Final Result Performing Organization Address City/[facility]/ZIP Co de Phone Number [facility] ([place]) 1 [facility] [employer] [place] [address] * (ABNORMAL) Vitamin D 25 hydroxy (09/18/2020 4:32 PM CDT) Vitamin D 25-OH 17(L) 30 - 80 ng/mL [facility] ([place]) Blood specimen (specimen) 09/18/2020 4:32 PM CDT 09/18/2020 5:24 PM CDT Eliseo Lambert MD LAB BLOOD ORDERABLES Fi nal Result [facility] ([place]) 1 [facility] [place] [address] * Comprehensive metabolic panel (09/18/2020 4:32 PM CDT) Sodium 137 135 - 145 mmol/L [facility] ([place]) Potassium, pl 4.3 3.3 - 4.9 mmol/L [facility] ([place]) Chloride 99 97 - 110 mmol/L [facility] ([place]) CO2 27 22 - 32 mmol/L [facility] ([place]) [...] 10.3 mg/dL [facility] ([place]) Bilirubin, total <0.2 0.1 - 1.2 mg/dL [facility] ([place]) Protein, pl 7.6 6.5 - 8.5 g/dL [facility] ([place]) Albumin 4.5 3.5 - 5.0 g/dL [facility] ([place]) Alk phos 83 40 - 130 Units/L [facility] ([place]) ALT 21 7 - 45 Units/L [facility] ([place]) AST 24 10 - 45 Units/L [facility] ([place]) Comment:Slightly Hemolyzed S pecimen Blood specimen (specimen) 09/18/2020 4:32 PM CDT 09/18/2020 5:24 PM CDT Eliseo Lambert MD LAB BLOOD ORDERABLES Fi nal Result [facility] ([place]) 1 [facility] Department [place] [place] [address] * (ABNORMAL) CBC without differential (09/18/2020 4:32 PM CDT) WBC 7.5 3.8 - 9.9 K/cumm [facility] ([place]) Hgb 12.3 11.9 - 15.5 [...] ORDERABLES Fi nal Result Performing Organization Address City/[facility]/ZIP Co de Phone Number [facility] ([place]) 1 [facility] [place] [employer] [place] [address] * TSH reflex to free T4 (09/18/2020 4:32 PM CDT) Pathologist [facility] TSH 2.39 0.30 - 4.20 mcIUnit/mL [facility] ([place]) Blood specimen (specimen) 09/18/2020 4:32 PM CDT 09/18/2020 5:24 PM CDT Eliseo Lambert MD LAB BLOOD ORDERABLES Fi nal Result Performing Organization Address City/[facility]/ZIP Co de Phone Number [facility] ([place]) 1 [facility] [place] [place] [address] * Folate (09/18/2020 4:32 PM CDT) Pathologist [facility] Folic acid 11.8 >=5.0 ng/mL [facility] ([place]) Comment: Hemolysis present. ??Results may be affected. Testing performed by: [address], [address] Blood specimen (specimen) 09/18/2020 4:32 PM CDT 09/19/2020 2:37 PM CDT Eliseo Lambert MD LAB BLOOD ORDERABLES Fi nal Result Performing Organization Address [facility] Co de Phone Number [facility] ([place]) 1 [facility] [place] [place] [address] * Vitamin B12 (09/18/2020 4:32 PM CDT) Pathologist [facility] Vitamin B12 426 230 - 1,250 pg/mL [facility] (AMANUEL) Comment:Testing performed by : [facility], [address] [place] [address], [id number] Blood specimen (specimen) 09/18/2020 4:32 PM CDT 09/19/2020 2:37 PM CDT Eliseo Lambert MD LAB BLOOD ORDERABLES Fi nal Result Performing Organization Address City/[facility]/ZIP Co de Phone Number [facility] ([place]) 1 [facility] [place] [place] [address] documented in this encounter Visit Diagnoses Diagnosis Other fatigue- Primary BMI 22.0-22.9, adult Need for hepatitis C screening test Special screening examination for other specified viral diseases Cystic acne vulgaris Other acne Diarrhea due to malabsorption Other fatigue Need for hepatitis C screening test Special screening examination for other specified viral diseases documented in this encounter Discontinued Medications Medication Sig Discontinue Reason Start Date End Da te naloxone (Narcan) 4 mg/actuation spray,non-aerosol Call 911. Administer a single spray in one nostril. Repeat every 3 minutes as needed if no or minimal response. Therapy completed 04/19/2018 09/18/2020 spironolactone (ALDACTONE) 100 mg tablet TAKE ONE TABLET BY MOUTH EVERY DAY 09/06/2020 09/18/2020 documented as of this encounter Care Teams Staff Development Coordinator Relationship Specialty Start Date End Date Eliseo Lambert MD PCP - General Family Medicine 05/21/20 06/29/23 documented as of this encounter
--- OUTSIDE RECORDS SUMMARY | 2024-06-25 09:56 | XMS_ITS | Encounter Summary ---
Author Organization [facility] Healthcare Address [address] [place] [address] Care Team Providers Care Yard Goods Salesperson Name Role Phone Eliseo Lambert MD Primary Care Provider Encounter Details Date Type Department Care Team (Late st Contact Info) Description 06/10/2020 Telephone [facility] [address] [place] [address] Room 3420 (Third Floor) [place] [address] Jyoti Jones RN Social History Tobacco Use Types Packs/Day [...] on file Legal Sex Female 1:17 AM NURSING ADMIN Gender Identity Not on file Sexual Orientation Not on file 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 Asymptomatic. Public health required testing due to exposure. ING ADMIN documented in this encounter Plan of Treatment Not on file documented as of this encounter Visit Diagnoses Diagnosis Exposure to COVID-19 virus- Primary documented in this encounter Additional Health Concerns Infection Onset Date Last Indicated Resolved Time Exposure, COVID-19 Comment:Added automatically based on COVID19 lab answers indicating exposure risk 06/10/2020 06/10/2020 06/25/2020 3:[address] documented as of this encounter Care Teams Yard Goods Salesperson Relationship Specialty Start Date End Date Eliseo Lambert MD PCP - General Family Medicine 05/21/20 06/29/23 documented as of this encounter
--- OUTSIDE RECORDS SUMMARY | 2024-06-25 09:56 | XMS_ITS | Encounter Summary ---
Author Organization [facility] Healthcare Address [address] [place] [address] Care Team Providers Care Woodworker Name Role Phone Eliseo Lambert MD Primary Care Provider Reason for Referral * Diagnostic Imaging (Routine) - Closed Specialty Diagnoses / Procedures Referred By Contac t Referred To Contact Radiology Diagnoses Abdominal pain Procedures CT Abdomen W Contrast Ilan Inman MD Phone: tel: fax: [address] [phone] Referral ID Status Reason Start Date Expiration Date Visits Re quested Visits Authorized [id number] Closed 06/07/2020 12/04/2020 1 1 OBIOLOGY LAB ANALYST Reason for Visit * Diagnostic Imaging (Routine) - Closed Specialty Diagnoses / Procedures Referred By Contac t Referred To Contact Radiology Diagnoses Abdominal pain Procedures CT Abdomen W Contrast Ilan Inman MD Phone: tel: fax: [address] [phone] Referral ID Status Reason Start Date Expiration Date Visits Re quested Visits Authorized [id number] Closed 06/07/2020 12/04/2020 1 1 Encounter Details Date Type Department Care Team (Latest Contact Info) Description 06/07/2020 3:06 PM MICROBIOLOGY LAB ANALYST - 06/07/2020 11:59 PM MICROBIOLOGY LAB ANALYST Hospital Encounter [facility] [address] [place] [id number] Ilan Inman MD [facility] [address] Abdominal pain Discharge Disposition: Discharge to home or self [...] on file Legal Sex Female 1:17 AM MICROBIOLOGY LAB ANALYST Gender Identity Not on file Sexual Orientation Not on file 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 Administer a single spray in one nostril. Repeat every 3 minutes as needed if no or minimal response. 04/19/2018 1 spironolactone (ALDACTONE) 100 mg tablet Take 1 tablet (100 mg total) by mouth daily 90 tablet 05/21/2020 1 documented as of this encounter Discharge Disposition Disposition Code Departure Means Destination Discharge to home or self care documented in this encounter Plan of Treatment Not on file documented as of this encounter Procedures Procedure Name Priority Date/Time Associated Diagnosis Comments CT ABDOMEN W CONTRAST Schedule Routine, Read Routine (OP Routine) 06/07/2020 3:53 PM MICROBIOLOGY LAB ANALYST Abdominal pain documented in this encounter Results * CT Abdomen W Contrast (06/07/2020 3:53 PM MICROBIOLOGY LAB ANALYST) Anatomical Region Laterality Modality Body N/A Computed Tomogra phy 06/07/2020 3:56 PM MICROBIOLOGY LAB ANALYST Impressions 06/07/2020 4:00 PM MICROBIOLOGY LAB ANALYST No CT explanation for the patient's abdominal pain. Electronically signed by: Paulino Duncan M.D. [facility] 06/07/2020 4:00 PM MICROBIOLOGY LAB ANALYST EXAMINATION: CT ABDOMEN W CONTRAST ORDERING HEALTHCARE PROVIDER: ILAN INMAN HISTORY: RUQ abdominal pain, initial exam. TECHNIQUE: CT abdomen with intravenous and no oral contrast. Reconstructed coronal and sagittal MPR images reviewed. ??All images stored on PACS. ??Automated exposure control was used as a dose optimization technique for this examination. CONTRAST TYPE/DOSE: 100 mL Optiray 320 COMPARISON: None available FINDINGS: LOWER CHEST: The lung bases are clear. The heart is normal in size without pericardial effusion. LIVER: Normal. GALLBLADDER: Surgically absent. SPLEEN: Normal. PANCREAS: Normal. ADRENALS: Normal. KIDNEYS/URINARY TRACT: No obstructing urolithiasis or hydronephrosis. GI: No bowel obstruction. PERITONEUM: No free intraperitoneal air or ascites. VASCULATURE: No abdominal aortic aneurysm. MUSCULOSKELETAL: A small disc bulges seen at L5-S1. OTHER: No other acute findings. Procedure Note Paulino Duncan MD - 06/07/2020 EXAMINATION: CT ABDOMEN W CONTRAST ORDERING HEALTHCARE PROVIDER: ILAN INMAN HISTORY: RUQ abdominal pain, initial exam. TECHNIQUE: CT abdomen with intravenous and no oral contrast. Reconstructed coronal and sagittal MPR images reviewed. All images stored on PACS. Automated exposure control was used as a dose optimization technique for this examination. CONTRAST TYPE/DOSE: 100 mL Optiray 320 COMPARISON: None available FINDINGS: LOWER CHEST: The lung bases are clear. The heart is normal in size without pericardial effusion. LIVER: Normal. GALLBLADDER: Surgically absent. SPLEEN: Normal. PANCREAS: Normal. ADRENALS: Normal. KIDNEYS/URINARY TRACT: No obstructing urolithiasis or hydronephrosis. GI: No bowel obstruction. PERITONEUM: No free intraperitoneal air or ascites. VASCULATURE: No abdominal aortic aneurysm. MUSCULOSKELETAL: A small disc bulges seen at L5-S1. OTHER: No other acute findings. IMPRESSION: No CT explanation for the patient's abdominal pain. Electronically signed by: Paulino Duncan M.D. Ilan Inman MD IMG CT PROCEDURES Final Res ult documented in this encounter Visit Diagnoses Diagnosis Abdominal pain Abdominal pain, unspecified site documented in this encounter Administered Medications Inactive Administered Medications - up to 3 most recent administrations Medication Order MAR Action Action Date Dose Rate Site ioversoL (OPTIRAY 320) injection 100 mL 100 mL, intravenous, Once in imaging, contrast, Starting on Wed06/07/20 at 1551, For 1 dose Given 06/07/2020 3:55 PM MICROBIOLOGY LAB ANALYST 100 mL documented in this encounter Additional Health Concerns Infection Onset Date Last Indicated Resolved Time Exposure, COVID-19 Comment:Added automatically based on COVID19 lab answers indicating exposure risk 05/25/2020 05/25/2020 06/09/2020 3:[address] documented as of this encounter Care Teams Woodworker Relationship Specialty Start Date End Date Eliseo Lambert MD PCP - General Family Medicine 05/21/20 06/29/23 documented as of this encounter
--- OUTSIDE RECORDS SUMMARY | 2024-06-25 09:56 | XMS_ITS | Encounter Summary ---
Author Organization [facility] Healthcare Address [address] [place] [address] Care Team Providers Care Test Automation Architect Name Role Phone Eliseo Lambert MD Primary Care Provider Encounter Details Date Type Department Care Team (Late st Contact Info) Description 06/06/2020 Telephone [facility] Healthcare Occupati[facility]onal [facility] [address] [facility] Room [address] (Third Floor) [place] [address] Nora Angel NP [address] [facility] [address] [place] [address] Social History Tobacco Use Types Packs/Day Years [...] on file Legal Sex Female 1:17 AM PORT CAPTAIN Gender Identity Not on file Sexual Orientation Not on file 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 Asymptomatic. Public health required testing due to exposure. CAPTAIN documented in this encounter Plan of Treatment Not on file documented as of this encounter Visit Diagnoses Diagnosis Exposure to COVID-19 virus- Primary documented in this encounter Additional Health Concerns Infection Onset Date Last Indicated Resolved Time Exposure, COVID-19 Comment:Added automatically based on COVID19 lab answers indicating exposure risk 05/25/2020 05/25/2020 06/09/2020 3:[address] documented as of this encounter Care Teams Test Automation Architect Relationship Specialty Start Date End Date Eliseo Lambert MD PCP - General Family Medicine 05/21/20 06/29/23 documented as of this encounter
--- OUTSIDE RECORDS SUMMARY | 2024-06-25 09:56 | XMS_ITS | Encounter Summary ---
Author Organization [facility] Medical Group Address [address] [facility] [address] [place] [address] Care Team Providers Care Can Washer Name Role Phone Eliseo Lambert MD Primary Care Provider Reason for Visit * Reason Onset Date Comments Abdominal Pain 06/06/2020 Encounter Details Date Type Department Care Team (Late st Contact Info) Description 06/06/2020 Telephone [facility] [address] [facility] [address] [place] [address] Eliseo Lambert MD [address] [place] [address] [address] [place] [address] Abdominal Pain Social History Tobacco Use Types Packs/Day Years [...] on file Legal Sex Female 1:17 AM COMPUTER SYSTEMS SECURITY 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 Thank you. UTER SYSTEMS SECURITY ADMINISTRATOR * Telephone Encounter - Rosana Mike MA - 06/06/2020 10:24 AM COMPUTER SYSTEMS SECURITY ADMINISTRATOR Kristy called and stated that she is having abd pain post eating. She is having right sided pain. She was told last week that she has decreased kidney function and elevated liver enzymes. She has been having stomach issues for a while but last night they started becoming more intense. She did have an episode of diarrhea and today she is just having nausea. Attempted to schedule with pcp but no openings.. Patient was scheduled for the first opening with provider today. Please advise if further instructions are needed. UTER SYSTEMS SECURITY ADMINISTRATOR documented in this encounter Plan of Treatment Not on file documented as of this encounter Visit Diagnoses Not on filedocumented in this encounter Additional Health Concerns Infection Onset Date Last Indicated Resolved Time Exposure, COVID-19 Comment:Added automatically based on COVID19 lab answers indicating exposure risk 05/25/2020 05/25/2020 06/09/2020 3:[address] documented as of this encounter Care Teams Can Washer Relationship Specialty Start Date End Date Eliseo Lambert MD PCP - General Family Medicine 05/21/20 06/29/23 documented as of this encounter
--- OUTSIDE RECORDS SUMMARY | 2024-06-25 09:56 | XMS_ITS | Encounter Summary ---
Author Organization [facility] Healthcare Address [address] [place] [address] Care Team Providers Care Development Team Lead Name Role Phone Eliseo Lambert MD Primary Care Provider Encounter Details Date Type Department Care Team (Late st Contact Info) Description 06/05/2020 3:40 PM FINANCIAL ADVOCATE Lab [facility] [address] [place] [address] Eliseo Lambert MD [address] [place] [id number] AVRIL (acute kidney injury) ([facility]) Discharge Disposition: Discharge to home or self [...] on file Legal Sex Female 1:17 AM FINANCIAL ADVOCATE Gender Identity Not on file Sexual Orientation Not on file 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 Martins office. If patient would like to see an customs and border protection inspector. She may call and request an appointment. NCIAL ADVOCATE * Result Encounter Note - Alexus Ro MA - 06/06/2020 3:03 PM CST lmom for the patient to call our office back. NCIAL ADVOCATE * Result Encounter Note - Eliseo Lambert MD - 06/06/2020 3:01 PM FINANCIAL ADVOCATE Okay, at this time she will be getting the CT that Dr. Inman ordered. But she should have bites here and there and snack frequently. NCIAL ADVOCATE * Result Encounter Note - Alexus Ro MA - 06/06/2020 2:56 PM CST I spoke with the patient in regards she stated that she has eaten lunch and that she had ate some candy an hour before the blood test. She is waiting now to get the CT done at [facility].She stated that also she ate and her blood pressure dropped to 102/50 last week? NCIAL ADVOCATE * Result Encounter Note - Eliseo Lambert MD - 06/06/2020 2:45 PM FINANCIAL ADVOCATE Patient's kidney function has stabilized so her acute kidney injury has recovered fully. She still has mildly decreased renal function but very mild and this will not make her feel sick or unwell. Her CMP did show a blood glucose of 65 which is on the low side and can make her feel sick. So please advice her to eat something, drink some juice so she does not have low BG which will make her feel sick. Patient is being seen by Dr. Inman in office today. NCIAL ADVOCATE documented in this encounter Plan of Treatment Not on file documented as of this encounter Procedures Procedure Name Priority Date/Time Associated Diagnosis Comments EGFR Routine 06/05/2020 3:40 PM FINANCIAL ADVOCATE AVRIL (acute kidney injury) (CMS/HCC) COMPREHENSIVE METABOLIC PANEL Routine 06/05/2020 3:40 PM FINANCIAL ADVOCATE AVRIL (acute kidney injury) (CMS/HCC) documented in this encounter Results * eGFR (06/05/2020 3:40 PM FINANCIAL ADVOCATE) eGFR 78 mL/min/1.7 3 m2 [facility] ([place]) Comment: Interpretive Data Reference Interval Normal ?>/= 90 mL/min/1.73m2 Mildly decreased* ? 60 - 89 mL/min/1.73m2 Mildly to moderately decreased ?45 - 59 mL/min/1.73m2 Moderately to severely decreased ??30 - 44 mL/min/1.73m2 Severely decreased ?15 - 29 mL/min/1.73m2 Kidney Failure ?< 15 ??mL/min/1.73m2 *Relative to young adult level If -Nauruan multiply value by 1.16. Estimated glomerular filtration rate is determined by [...] 70. Current interpretive data was last reviewed 2016. Blood specimen (specimen) 06/05/2020 3:40 PM FINANCIAL ADVOCATE 06/05/2020 5:34 PM FINANCIAL ADVOCATE us Eliseo Lambert MD LAB BLOOD ORDERABLES Fi nal Result [facility] ([place]) [address] [facility] Department [place] [address] * (ABNORMAL) Comprehensive metabolic panel (06/05/2020 3:40 PM FINANCIAL ADVOCATE) Sodium 137 135 - 145 mmol/L [facility] ([place]) Potassium, pl 3.7 3.3 - 4.9 mmol/L [facility] ([place]) Chloride 101 97 - 110 mmol/L [facility] ([place]) CO2 27 22 - 32 mmol/L [facility] ([place]) Anion gap 9 2 - 15 mmol/L [facility] ([place]) BUN 23 8 - 25 mg/dL [facility] ([place]) Creatinine 0.89 0.60 - 1.10 mg/dL [facility] ([place]) Glucose 65(L) 70 - 199 mg/dL [facility] ([place]) [...] interpretive data was last revised 2017. Calcium 9.2 8.5 - 10.3 mg/dL [facility] ([place]) Bilirubin, total <0.2 0.1 - 1.2 mg/dL [facility] ([place]) Protein, pl 6.8 6.5 - 8.5 g/dL [facility] ([place]) Albumin 4.3 3.5 - 5.0 g/dL [facility] ([place]) Alk phos 85 40 - 130 Units/L [facility] ([place]) ALT 20 7 - 45 Units/L [facility] ([place]) AST 20 10 - 45 Units/L [facility] ([place]) Blood specimen (specimen) 06/05/2020 3:40 PM FINANCIAL ADVOCATE 06/05/2020 5:34 PM FINANCIAL ADVOCATE Eliseo Lambert MD LAB BLOOD ORDERABLES Fi nal Result [facility] ([place]) 1 [facility] Department [place] [address] documented in this encounter Visit Diagnoses Diagnosis AVRIL (acute kidney injury) (HCC) documented in this encounter Additional Health Concerns Infection Onset Date Last Indicated Resolved Time Exposure, COVID-19 Comment:Added automatically based on COVID19 lab answers indicating exposure risk 05/25/2020 05/25/2020 06/09/2020 3:[address] documented as of this encounter Care Teams Development Team Lead Relationship Specialty Start Date End Date Eliseo Lambert MD PCP - General Family Medicine 05/21/20 06/29/23 documented as of this encounter
--- OUTSIDE RECORDS SUMMARY | 2024-06-25 09:56 | XMS_ITS | Encounter Summary ---
Author Organization [facility] Medical Group Address [address] [facility] [address] [place] [address] Care Team Providers Care Sole Layer Hand Name Role Phone Eliseo Lambert MD Primary Care Provider Encounter Details Date Type Department Care Team (Late st Contact Info) Description 05/29/2020 Telephone [facility] [address] [facility] [address] [place] [address] Eliseo Lambert MD [address] [place] [address] [address] [place] [address] Social History Tobacco Use Types Packs/Day Years [...] on file Legal Sex Female 1:17 AM INSURANCE VERIFY REP Gender Identity Not on file Sexual Orientation Not on file 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 She states it happened to her yesterday after she ate lunch she went to the school nurse and they checked her blood pressure it was 102/70. They did give her some crackers and water. She states after the crackers and water she felt better however her feet were still tingling. She has been feeling pretty fatigued, and she stayed home from work today. I do see in her chart she was tested for covid however it is pending. RANCE VERIFY REP documented in this encounter Plan of Treatment Not on file documented as of this encounter Visit Diagnoses Not on filedocumented in this encounter Additional Health Concerns Infection Onset Date Last Indicated Resolved Time Exposure, COVID-19 Comment:Added automatically based on COVID19 lab answers indicating exposure risk 05/25/2020 05/25/2020 06/09/2020 3:[address] documented as of this encounter Care Teams Sole Layer Hand Relationship Specialty Start Date End Date Eliseo Lambert MD PCP - General Family Medicine 05/21/20 06/29/23 documented as of this encounter
--- OUTSIDE RECORDS SUMMARY | 2024-06-25 09:56 | XMS_ITS | Encounter Summary ---
Author Organization [facility] Healthcare Address [address] [place] [address] Care Team Providers Care Mine Captain Name Role Phone Eliseo Lambert MD Primary Care Provider Encounter Details Date Type Department Care Team (Late st Contact Info) Description 06/13/[address] 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 Asymptomatic. Public health required testing due to exposure. MACHINE ASSEMBLER documented in this encounter Plan of Treatment Not on file documented as of this encounter Visit Diagnoses Diagnosis Exposure to COVID-19 virus- Primary documented in this encounter Additional Health Concerns Infection Onset Date Last Indicated Resolved Time Exposure, COVID-19 Comment:Added automatically based on COVID19 lab answers indicating exposure risk 06/10/2020 06/10/2020 06/25/2020 3:[address] documented as of this encounter Care Teams Mine Captain Relationship Specialty Start Date End Date Eliseo Lambert MD PCP - General Family Medicine 05/21/20 06/29/23 documented as of this encounter
--- OUTSIDE RECORDS SUMMARY | 2024-06-25 09:56 | XMS_ITS | Encounter Summary ---
Author Organization [facility] Medical Group Address [address] [facility] [address] [place] [address] Care Team Providers Care Geology Scientist Name Role Phone Eliseo Lambert MD Primary Care Provider Reason for Visit * Reason Onset Date Comments CT Scan 06/07/2020 Encounter Details Date Type Department Care Team (Late st Contact Info) Description 06/07/2020 Telephone [facility] [address] 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 I let her know that Cesar approved her CT scan. She will be going at 3pm to haveit done due to being at work and not wanting to get in trouble for leaving. I asked her how she is feeling and she said terrible. She is having cold sweats. She is concerned about he blood sugar dropping. I will call over at the hospital to let them know it will be a hold and call. Spoke with Alan andinformed him that the patient will be there at 3pm. MOUNTER documented in this encounter Plan of Treatment Not on file documented as of this encounter Visit Diagnoses Not on filedocumented in this encounter Additional Health Concerns Infection Onset Date Last Indicated Resolved Time Exposure, COVID-19 Comment:Added automatically based on COVID19 lab answers indicating exposure risk 05/25/2020 05/25/2020 06/09/2020 3:05 AM Veronica RENEE documented as of this encounter Care Teams Geology Scientist Relationship Specialty Start Date End Date Eliseo Lambert MD PCP - General Family Medicine 05/21/20 06/29/23 documented as of this encounter
--- OUTSIDE RECORDS SUMMARY | 2024-06-25 09:56 | XMS_ITS | Encounter Summary ---
Author Organization [facility] Healthcare Address [address] [place] [address] Care Team Providers Care Safety Spec Name Role Phone Eliseo Lambert MD Primary Care Provider Encounter Details Date Type Department Care Team (Late st Contact Info) Description 05/30/2020 6:15 AM SURVEILLANCE ANALYST Lab [facility] [address] [place] [address] Eliseo Lambert MD [address] [place] [id number] Impaired fasting glucose; Anemia, unspecified type Discharge Disposition: Discharge to home [...] on file Legal Sex Female 1:17 AM SURVEILLANCE ANALYST Gender Identity Not on file Sexual Orientation Not on file 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 It is probably whatever she had that made her sick and in turn affected her hydration status. EILLANCE ANALYST * Result Encounter Note - Eliseo Lambert MD - 05/31/2020 12:34 PM SURVEILLANCE ANALYST Actually with a CMP which is what I ordered it will check the kidney function and liver enzymes EILLANCE ANALYST * Result Encounter Note - Eliseo Lambert MD - 05/31/2020 12:34 PM SURVEILLANCE ANALYST You are not diabetic with the tests that we did and not even pre-diabetic. You did have a decrease in your kidneys so something had injured them enough to cause some problem. We need to check this out. In the mean time stay adequately hydrated. I would like to recheck it this coming week. Wednesday -Wednesday if possible so I can make sure it is getting better to where it was a few months ago. Otherresults were normal except for a very mild increase in liver enzymes which again can be from one ofmany causes including a recent viral illness. I would like to recheck it again as well but this maytake a little longer than a few days to get better. So we can do this one on your next visit with me. EILLANCE ANALYST documented in this encounter Plan of Treatment Not on file documented as of this encounter Procedures Procedure Name Priority Date/Time Associated Diagnosis Comments EGFR Routine 05/30/2020 6:14 AM SURVEILLANCE ANALYST Impaired fasting glucose CBC WITHOUT DIFFERENTIAL Routine 05/30/2020 6:14 AM SURVEILLANCE ANALYST Anemia, unspecified type HEMOGLOBIN A1C Routine 05/30/2020 6:14 AM SURVEILLANCE ANALYST Impaired fasting glucose COMPREHENSIVE METABOLIC PANEL Routine 05/30/2020 6:14 AM SURVEILLANCE ANALYST Impaired fasting glucose documented in this encounter Results * eGFR (05/30/2020 6:14 AM SURVEILLANCE ANALYST) eGFR 54 mL/min/1.7 3 m2 [facility] ([place] Comment: Interpretive Data Reference Interval Normal ?>/= 90 mL/min/1.73m2 Mildly decreased* ? 60 - 89 mL/min/1.73m2 Mildly to moderately decreased ?45 - 59 mL/min/1.73m2 Moderately to severely decreased ??30 - 44 mL/min/1.73m2 Severely decreased ?15 - 29 mL/min/1.73m2 Kidney Failure ?< 15 ??mL/min/1.73m2 *Relative to young adult level If -[place] multiply value by 1.16. Estimated glomerular filtration [...] was last reviewed 2016. Blood specimen (specimen) 05/30/2020 6:14 AM SURVEILLANCE ANALYST 05/30/2020 7:02 AM SURVEILLANCE ANALYST Eliseo Lambert MD LAB BLOOD ORDERABLES Fi nal Result [facility] ([place] [address] [facility] Department [place] [address] * Hemoglobin A1c (05/30/2020 6:14 AM SURVEILLANCE ANALYST) [facility] Hgb A1C 5.3 4.0 - 5.6 % [facility] Estimated Average Glucose 105 mg/dL [facility] ([place] Comment: The ADA recommends reporting an estimated Average Glucose (eAG) with all Hemoglobin A1c results using the equation derived from a study of 507 normal and diabetic adults. ??Minority populations were underrepresented and children were not included. ?? (Diabetes Care 31:4958-6975, 2008). ??The eAG is not equivalent to a fasting glucose. Blood specimen (specimen) 05/30/2020 6:14 AM SURVEILLANCE ANALYST 05/30/2020 7:02 AM SURVEILLANCE ANALYST us Eliseo Lambert MD LAB BLOOD ORDERABLES Fi nal Result [facility] ([place] Department [place] [address] * (ABNORMAL) CBC without differential (05/30/2020 6:14 AM SURVEILLANCE ANALYST) WBC 6.5 3.8 - 9.9 K/cumm [facility] ([place]) Hgb 13.5 11.9 - 15.5 g/dL [facility] Hct 40.3 35.6 - 45.5 % [facility] Plt 263 150 - 400 K/cumm [facility] MPV 10.6 9.1 - 12.3 fL [facility] RBC 4.10 3.90 - 5.20 M/cumm [facility] ([place]) MCV 98.3(H) 81.3 - 96.4 fL [facility] ([place] MCH 32.9 27.1 - 33.3 pg [facility] MCHC 33.5 32.3 - 35.7 g/dL [facility] ([place]) RDW CV 11.9 11.1 - 14.9 % [facility] ([place] RDW SD 43.5 35.7 - 48.1 fL [facility] ([place]) NRBC abs 0.00 0.00 - 0.01 K/cumm [facility] ([place]) Blood specimen (specimen) 05/30/2020 6:14 AM SURVEILLANCE ANALYST 05/30/2020 7:02 AM SURVEILLANCE ANALYST us Eliseo Lambert MD LAB BLOOD ORDERABLES Fi nal Result [facility] ([place] Department [place] [address] * (ABNORMAL) Comprehensive metabolic panel (05/30/2020 6:14 AM SURVEILLANCE ANALYST) Sodium 139 135 - 145 mmol/L [facility] ([place]) Potassium, pl 3.9 3.3 - 4.9 mmol/L [facility] ([place]) Chloride 101 97 - 110 mmol/L [facility]) CO2 30 22 - 32 mmol/L [facility]) Anion gap 8 2 - 15 mmol/L [facility] ([place]) BUN 14 8 - 25 mg/dL [facility] ([place]) Creatinine 1.20(H) 0.60 - 1.10 mg/dL [facility] ([place]) Glucose 90 70 - 199 mg/dL [facility] ([place] [...] 1.2 mg/dL [facility] ([place]) Protein, pl 7.5 6.5 - 8.5 g/dL [facility] ([place]) Albumin 4.6 3.5 - 5.0 g/dL [facility] ([place]) Alk phos 100 40 - 130 Units/L [facility] ([place]) ALT 54(H) 7 - 45 Units/L [facility] ([place]) AST 46(H) 10 - 45 Units/L [facility] ([place]) Blood specimen (specimen) 05/30/2020 6:14 AM SURVEILLANCE ANALYST 05/30/2020 7:02 AM SURVEILLANCE ANALYST Eliseo Lambert MD LAB BLOOD ORDERABLES Fi nal Result [facility] [place]) [facility] Department [place] [address] documented in this encounter Visit Diagnoses Diagnosis Impaired fasting glucose Anemia, unspecified type documented in this encounter Additional Health Concerns Infection Onset Date Last Indicated Resolved Time Exposure, COVID-19 Comment:Added automatically based on COVID19 lab answers indicating exposure risk 05/25/2020 05/25/2020 06/09/2020 3:[address] documented as of this encounter Care Teams Safety Spec Relationship Specialty Start Date End Date Eliseo Lambert MD PCP - General Family Medicine 05/21/20 06/29/23 documented as of this encounter
--- OUTSIDE RECORDS SUMMARY | 2024-06-25 09:56 | XMS_ITS | Encounter Summary ---
Author Organization [facility] Healthcare Address [address] [place] [address] Care Team Providers Care Loader Name Role Phone Eliseo Lambert MD Primary Care Provider Encounter Details Date Type Department Care Team (Late st Contact Info) Description 05/30/2020 Telephone [facility] [address] [place] [address] Room 34[address] (Third Floor) [place] [address] Nena Gomez RN Social History Tobacco Use Types Packs/Day [...] on file Legal Sex Female 1:17 AM FUR DRESSING SUPERVISOR Gender Identity Not on file Sexual Orientation Not on file 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 Asymptomatic. Public Health Required Testing d/t Exposure. DRESSING SUPERVISOR documented in this encounter Plan of Treatment Not on file documented as of this encounter Visit Diagnoses Diagnosis Exposure to 2019 novel coronavirus- Primary documented in this encounter Additional Health Concerns Infection Onset Date Last Indicated Resolved Time Exposure, COVID-19 Comment:Added automatically based on COVID19 lab answers indicating exposure risk 05/25/2020 05/25/2020 06/09/2020 3:[address] documented as of this encounter Care Teams Loader Relationship Specialty Start Date End Date Eliseo Lambert MD PCP - General Family Medicine 05/21/20 06/29/23 documented as of this encounter
--- OUTSIDE RECORDS SUMMARY | 2024-06-25 09:56 | XMS_ITS | Encounter Summary ---
Author Organization [facility] Address [address] [facility] [address] [place] [address] Care Team Providers Care Chief Deputy Court Clerk Name Role Phone Eliseo Lambert MD Primary Care Provider Encounter Details Date Type Department Care Team (Late st Contact Info) Description 05/31/2020 Orders Only [facility] [address] [facility] [address] [place] [phone] Eliseo Lambert MD [address] [place] [address] [address] [place] [address] AVRIL (acute kidney injury) (CMS/HCC) (Primary Dx) Social History Tobacco Use Types [...] on file Legal Sex Female 1:17 AM MILL OPERATOR HELPER Gender Identity Not on file Sexual Orientation Not on file 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 Not on file documented as of this encounter Plan of Treatment Not on file documented as of this encounter Results * (ABNORMAL) Comprehensive metabolic panel (06/05/2020 3:40 PM MILL OPERATOR HELPER) Sodium 137 135 - 145 mmol/L [facility] ([place]) Potassium, pl 3.7 3.3 - 4.9 mmol/L [...] ([place]) Blood specimen (specimen) 06/05/2020 3:40 PM MILL OPERATOR HELPER 06/05/2020 5:34 PM MILL OPERATOR HELPER us Eliseo Lambert MD LAB BLOOD ORDERABLES Fi nal Result [facility] ([place] [address] [facility] [place] [address] documented in this encounter Visit Diagnoses Diagnosis AVRIL (acute kidney injury) (HCC)- Primary documented in this encounter Additional Health Concerns Infection Onset Date Last Indicated Resolved Time Exposure, COVID-19 Comment:Added automatically based on COVID19 lab answers indicating exposure risk 05/25/2020 05/25/2020 06/09/2020 3:[address] documented as of this encounter Care Teams Chief Deputy Court Clerk Relationship Specialty Start Date End Date Eliseo Lambert MD PCP - General Family Medicine 05/21/20 06/29/23 documented as of this encounter
--- OUTSIDE RECORDS SUMMARY | 2024-06-25 09:56 | XMS_ITS | Encounter Summary ---
Author Organization [facility] Healthcare Address [address] [place] [address] Care Team Providers Care Cattle Farmer Name Role Phone Eliseo Lambert MD Primary Care Provider Encounter Details Date Type Department Care Team (Late st Contact Info) Description 06/05/2020 Telephone [facility] [address] [place] [address] Room 3420 (Third Floor) [place] [address] Jessi Han September Social History Tobacco Use [...] on file Legal Sex Female 1:17 AM LEGAL RECOVERY SPECIALIST Gender Identity Not on file Sexual Orientation Not on file 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 Asymptomatic. Public health required testing due to exposure. L RECOVERY SPECIALIST documented in this encounter Plan of [...] documented as of this encounter Care Teams Cattle Farmer Relationship Specialty Start Date End Date Eliseo Lambert MD PCP - General Family Medicine 05/21/20 06/29/23 documented as of this encounter
--- OUTSIDE RECORDS SUMMARY | 2024-06-25 09:56 | XMS_ITS | Encounter Summary ---
Author Organization [facility] Address [address] [facility] [address] [place] [address] Care Team Providers Care Celery Tier Name Role Phone Eliseo Lambert MD Primary Care Provider Reason for Referral * Diagnostic Imaging (Routine) - Closed Specialty Diagnoses / Procedures Referred By Contvivienne steinberg Referred To Contact Radiology Diagnoses Abdominal pain Procedures CT Abdomen W Contrast Ilan Inman MD Phone: tel: fax: [address] [phone] Referral ID Status Reason Start Date Expiration Date Visits Re quested Visits Authorized [id number] Closed 06/07/2020 12/04/2020 1 1 RIALS COORDINATOR Reason for Visit * Reason Comments Abdominal Pain Encounter Details Date Type Department Care Team (Late Contact Info) Description 06/06/2020 12:45 PM MATERIALS COORDINATOR [facility] Visit [facility] [address] [place] [phone] Ilan Inman MD [address] [facility] [address] [place] [address] Abdominal pain (Primary Dx) Social History Tobacco [...] on file Legal Sex Female 1:17 AM MATERIALS COORDINATOR Gender Identity Not on file Sexual Orientation Not on file 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 Not on file Not on file documented as of this encounter Last Filed Vital Signs Vital Sign Reading Time Taken Comments Blood Pressure 99/69 06/06/2020 1:01 PM MATERIALS COORDINATOR Pulse 85 06/06/2020 1:01 PM MATERIALS COORDINATOR Temperature 36.5 ??C (97.7 ??F) 06/06/2020 1:01 PM CS T Respiratory Rate 20 06/06/2020 1:01 PM MATERIALS COORDINATOR Oxygen Saturation 97% 06/06/2020 1:01 PM MATERIALS COORDINATOR Inhaled Oxygen Concentration - - Weight 60 kg (132 lb 3.2 oz) 06/06/2020 1:01 PM MATERIALS COORDINATOR Height - - Body Mass Index 23.28 05/21/2020 3:41 PM MATERIALS COORDINATOR documented in this encounter Progress Notes * Ilan Inman MD - 06/06/2020 12:45 PM CST Images from the original note were not included. Subjective/Objective Patient ID: Kristy Kapoor is a 44 y.o. female. Chief Complaint Abdominal Pain Abdominal Pain This is a chronic problem. The pain is located in the RUQ. Associated symptoms include arthralgias,frequency and nausea. Pertinent negatives include no anorexia, belching, constipation, diarrhea, dysuria, fever, flatus, headaches, hematochezia, hematuria, melena, myalgias, vomiting or weight loss.The pain is aggravated by eating. She has tried nothing for the symptoms. Her past medical history is significant for abdominal surgery. There is no history of colon cancer, Crohn's disease, gallstones or pancreatitis. Current Outpatient Medications: ??? buPROPion XL (WELLBUTRIN XL) 300 mg 24 hr tablet, Take 300 mg by mouth every morning , Disp: , Rfl: ??? clonazePAM (KlonoPIN) 0.5 mg tablet, 0.5 mg 2 (two) times a day , Disp: , Rfl: ??? naloxone (Narcan) 4 mg/actuation spray,non-aerosol, Call 911. Administer a single spray in one nostril. Repeat every 3 minutes as needed if no or minimal response., Disp: , Rfl: ??? spironolactone (ALDACTONE) 100 mg tablet, Take 1 tablet (100 mg total) by mouth daily, Disp: 90tablet, Rfl: 0 Review of Systems Constitutional: Negative for fever and weight loss. Gastrointestinal: Positive for abdominal pain and nausea. Negative for anorexia, constipation, diarrhea, flatus, hematochezia, melena and vomiting. Genitourinary: Positive for frequency. Negative for dysuria and hematuria. Musculoskeletal: Positive for arthralgias. Negative for myalgias. Neurological: Negative for headaches. BP 99/69 (BP Location: Right arm, Patient Position: Sitting) Pulse 85 Temp 36.5 ??C (97.7 ??F) (Temporal) Resp 20 Wt 60 kg (132 lb 3.2 oz) SpO2 97% BMI 23.28 kg/m?? Physical Exam Vitals signs reviewed. Abdominal: General: Abdomen is flat. Bowel sounds are normal. Palpations: Abdomen is soft. There is no mass or pulsatile mass. Tenderness: There is abdominal tenderness in the right upper quadrant. There is right CVA tenderness and guarding. There is no rebound. Negative signs include psoas sign. Hernia: No hernia is present. Skin: General: Skin is warm and dry. Neurological: Mental Status: She is alert. Lab on 06/05/2020 Component Date Value Ref Range Status ??? Sodium 06/05/2020 137 135 - 145 mmol/L Final ??? Potassium, pl 06/05/2020 3.7 3.3 - 4.9 mmol/L Final ??? Chloride 06/05/2020 101 97 - 110 mmol/L Final ??? CO2 06/05/2020 27 22 - 32 mmol/L Final ??? Anion gap 06/05/2020 9 2 - 15 mmol/L Final ??? BUN 06/05/2020 23 8 - 25 mg/dL Final ??? Creatinine 06/05/2020 0.89 0.60 - 1.10 mg/dL Final ??? Glucose 06/05/2020 65* 70 - 199 mg/dL Final Comment: Interpretive Data Fasting glucose >/= 126 mg/dl is diagnostic for diabetes. Fasting is defined as no caloric intake [...] Current interpretive data was last revised 2017. ??? Calcium 06/05/2020 9.2 8.5 - 10.3 mg/dL Final ? ? Bilirubin, total 06/05/2020 <0.2 0.1 - 1.2 mg/dL Final ??? Protein, pl 06/05/2020 6.8 6.5 - 8.5 g/dL Final ??? Albumin 06/05/2020 4.3 3.5 - 5.0 g/dL Final ??? Alk phos 06/05/2020 85 40 - 130 Units/L Final ??? ALT 06/05/2020 20 7 - 45 Units/L Final ??? AST 06/05/2020 20 10 - 45 Units/L Final ??? GFR 06/05/2020 78 mL/min/1.73 m2 Final Comment: Interpretive Data Reference Interval Normal >/= 90 mL/min/1.73m2 Mildly decreased* 60 - 89 mL/min/1.73m2 Mildly to moderately decreased 45 - 59 mL/min/1.73m2 Moderately to severely decreased 30 - 44 mL/min/1.73m2 Severely decreased 15 - 29 mL/min/1.73m2 Kidney Failure < 15 mL/min/1.73m2 *Relative to young adult level If -Citizen Of [place] multiply value by 1.16. Estimated glomerular filtration [...] Current interpretive data was last reviewed 2016. Lab on 05/30/2020 Component Date Value Ref Range Status ??? Sodium 05/30/2020 139 135 - 145 mmol/L Final ??? Potassium, pl 05/30/2020 3.9 3.3 - 4.9 mmol/L Final ??? Chloride 05/30/2020 101 97 - 110 mmol/L Final ??? CO2 05/30/2020 30 22 - 32 mmol/L Final ??? Anion gap 05/30/2020 8 2 - 15 mmol/L Final ??? BUN 05/30/2020 14 8 - 25 mg/dL Final ??? Creatinine 05/30/2020 1.20* 0.60 - 1.10 mg/dL Final ??? Glucose 05/30/2020 90 70 - 199 mg/dL Final Comment: Interpretive Data Fasting glucose >/= 126 mg/dl is diagnostic for diabetes. Fasting is defined as no caloric intake [...] Current interpretive data was last revised 2017. ??? Calcium 05/30/2020 9.6 8.5 - 10.3 mg/dL Final ??? Bilirubin, total 05/30/2020 0.4 0.1 - 1.2 mg/dL Final ??? Protein, pl 05/30/2020 7.5 6.5 - 8.5 g/dL Final ??? Albumin 05/30/2020 4.6 3.5 - 5.0 g/dL Final ??? Alk phos 05/30/2020 100 40 - 130 Units/L Final ??? ALT 05/30/2020 54* 7 - 45 Units/L Final ??? AST 05/30/2020 46* 10 - 45 Units/L Final ??? WBC 05/30/2020 6.5 3.8 - 9.9 K/cumm Final ??? Hgb 05/30/2020 13.5 11.9 - 15.5 g/dL Final ??? Hct 05/30/2020 40.3 35.6 - 45.5 % Final ??? Plt 05/30/2020 263 150 - 400 K/cumm Final ??? MPV 05/30/2020 10.6 9.1 - 12.3 fL Final ??? RBC 05/30/2020 4.10 3.90 - 5.20 M/cumm Final ??? MCV 05/30/2020 98.3* 81.3 - 96.4 fL Final ??? MCH 05/30/2020 32.9 27.1 - 33.3 pg Final ??? MCHC 05/30/2020 33.5 32.3 - 35.7 g/dL Final ??? RDW CV 05/30/2020 11.9 11.1 - 14.9 % Final ??? RDW SD 05/30/2020 43.5 35.7 - 48.1 fL Final ??? NRBC abs 05/30/2020 0.00 0.00 - 0.01 K/cumm Final ??? Hgb A1C 05/30/2020 5.3 4.0 - 5.6 % Final ??? Estimated Average Glucose 05/30/2020 105 mg/dL Final Comment: The ADA recommends reporting an estimated Average Glucose (eAG) with all Hemoglobin A1c results using the equation derived from a study of 507 normal and diabetic adults. Minority populations were underrepresented and children were not included. (Diabetes Care 31:1281-1070, 2008). The eAG is not equivalent to a fasting glucose. ??? GFR 05/30/2020 54 mL/min/1.73 m2 Final Comment: Interpretive Data Reference Interval Normal >/= 90 mL/min/1.73m2 Mildly decreased* 60 - 89 mL/min/1.73m2 Mildly to moderately decreased 45 - 59 mL/min/1.73m2 Moderately to severely decreased 30 - 44 mL/min/1.73m2 Severely decreased 15 - 29 mL/min/1.73m2 Kidney Failure < 15 mL/min/1.73m2 *Relative to young adult level If -Citizen Of [place] multiply value by 1.16. Estimated glomerular filtration [...] Current interpretive data was last reviewed 2016. Office Visit on 05/21/2020 Component Date Value Ref Range Status ??? Color, Urine, POC 05/21/2020 Light Yellow Final ??? Clarity, ur, POC 05/21/2020 Clear Clear Final ??? Glucose, ur, POC 05/21/2020 Negative Negative mg/dL Final ??? Bilirubin, ur, POC 05/21/2020 Negative Negative, Small, Moderate, Large Final ??? Ketones, ur, POC 05/21/2020 Negative Negative Final ??? Specific [place], POC 05/21/2020 1.010 1.005 - 1.030 Final ??? Blood, ur, POC 05/21/2020 Negative Negative Final ??? pH, ur, POC 05/21/2020 5.5 5.0 - 8.0 Final ??? Protein, ur, POC 05/21/2020 Negative Negative Final ??? Urobilinogen, Urine, POC 05/21/2020 0.2 mg/dL Final ??? Leukocytes, ur, POC 05/21/2020 Negative Negative Final ??? Nitrite, ur, POC 05/21/2020 Negative Negative Final ??? Appearance, fld 05/21/2020 Clear Clear Final Assessment/Plan Diagnoses and all orders for this visit: Abdominal pain (Primary) - CT Abdomen Pelvis WO Contrast; Future - POCT UA, AUTO W/O SCOPE Ilan Inman MD This office note has been partially dictated using [email or web address] software. RIALS COORDINATOR documented in this encounter Miscellaneous Notes * Addendum Note - Yola Mike MA - 06/06/2020 12:45 PM CSTAddended by: YOLA MIKE on: 06/07/2020 09:02 AM Modules accepted: Orders RIALS COORDINATOR documented in this encounter Plan of Treatment Not on file documented as of this encounter Procedures Procedure Name Priority Date/Time Associated Diagnosis Comments POCT URINALYSIS, AUTO W/O SCOPE Routine 06/06/2020 1:21 PM MATERIALS COORDINATOR Abdominal pain documented in this encounter Results * CT Abdomen W Contrast (06/07/2020 3:53 PM MATERIALS COORDINATOR) Anatomical Region Laterality Modality Body N/A Computed Tomogra phy 06/07/2020 3:56 PM MATERIALS COORDINATOR Impressions 06/07/2020 4:00 PM MATERIALS COORDINATOR No CT explanation for the patient's abdominal pain. Electronically signed by: Paulino Duncan M.D. [facility] 06/07/2020 4:00 PM MATERIALS COORDINATOR EXAMINATION: CT ABDOMEN W CONTRAST ORDERING HEALTHCARE [...] MD IMG CT PROCEDURES Final Res ult * POCT UA, AUTO W/O SCOPE (06/06/2020 1:21 PM MATERIALS COORDINATOR) Color, Urine, POC Yellow Clarity, ur, POC Clear Clear Glucose, ur, POC Negative Negative mg/dL Bilirubin, ur, POC Negative Negative, Small, Moderate, Large Ketones, ur, POC Negative Negative Specific [place], POC 1.025 1.005 - 1.030 Blood, ur, POC Negative Negative pH, ur, POC 5.5 5.0 - 8.0 Protein, ur, POC Negative Negative Urobilinogen, Urine, POC 0.2 mg/dL Leukocytes, ur, POC Negative Negative Nitrite, ur, POC Negative Negative Appearance, fld Clear Clear Urine, clean voided 06/06/2020 1:21 PM MATERIALS COORDINATOR Ilan Inman MD POINT OF CARE TEST ORDERABL ES Final Result documented in this encounter Visit Diagnoses Diagnosis Abdominal pain- Primary Abdominal pain, unspecified site Abdominal pain Abdominal pain, unspecified site documented in this encounter Additional Health Concerns Infection Onset Date Last Indicated Resolved Time Exposure, COVID-19 Comment:Added automatically based on COVID19 lab answers indicating exposure risk 05/25/2020 05/25/2020 06/09/2020 3:[address] documented as of this encounter Care Teams Celery Tier Relationship Specialty Start Date End Date Eliseo Lambert MD PCP - General Family Medicine 05/21/20 06/29/23 documented as of this encounter
--- OUTSIDE RECORDS SUMMARY | 2024-06-25 09:57 | XMS_ITS | Encounter Summary ---
Author Organization [facility] Healthcare Address [address] [place] [address] Care Team Providers Care Logging Tractor Operator Name Role Phone Eliseo Lambert MD Primary Care Provider Encounter Details Date Type Department Care Team (Late st Contact Info) Description 05/21/2020 Telephone [facility] Occupatiuonal Health [address] [place] [address] Room 3420 (Third Floor) [place] [address] Chrystal Rushing RN Social History Tobacco Use Types Packs/Day [...] on file Legal Sex Female 1:17 AM INCOME TAX AUDITOR Gender Identity Not on file Sexual Orientation Not on file 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 Asymptomatic. Public health required testing due to exposure. ME TAX AUDITOR documented in this encounter Plan of Treatment Not on file documented as of this encounter Visit Diagnoses Diagnosis Exposure to 2019 novel coronavirus- Primary documented in this encounter Additional Health Concerns Infection Onset Date Last Indicated Resolved Time Exposure, COVID-19 Comment:Added automatically based on COVID19 lab answers indicating exposure risk 05/07/2020 05/07/2020 05/22/2020 3:[address] documented as of this encounter Care Teams Logging Tractor Operator Relationship Specialty Start Date End Date Eliseo Lambert MD PCP - General Family Medicine 05/21/20 06/29/23 documented as of this encounter
--- OUTSIDE RECORDS SUMMARY | 2024-06-25 09:57 | XMS_ITS | Encounter Summary ---
Author Organization [facility] Healthcare Address [address] [place] [address] Care Team Providers Care Franchise Field Consultant Name Role Phone No, Physician Primary Care Provider Encounter Details Date Type Department Care Team (Late st Contact Info) Description 05/17/2020 Telephone [facility] Occupatiuonal Health [address] [place] [address] [address] (Third Floor) [place] [address] Amarilys Lee RN Social History Tobacco Use Types Packs/Day Years Used Date Smoking Tobacco: Former Smokeless Tobacco: Never Alcohol Use Standard Drinks/Week Comments No 0 (1 standard drink = 0.6 oz pur e alcohol) Comments No Sex and Gender Information Value Date Recorded Sex Assigned at Not on file Legal Sex Female 1:17 AM VOCATIONAL TECHNICAL EDUCATION DIRECTOR Gender Identity Not on file Sexual Orientation Not on file documented as of this encounter Miscellaneous Notes * Telephone Encounter - Amarilys Lee RN - 05/17/2020 3:01 PM CST COVID 19 test order placed. Asymptomatic. Public Health Required Testing d/t Exposure. TIONAL TECHNICAL EDUCATION DIRECTOR documented in this encounter Plan of Treatment [...] documented as of this encounter Care Teams Franchise Field Consultant Relationship Specialty Start Date End Date No, Physician PCP - General 04/04/20 05/20/20 documented as of this encounter
--- OUTSIDE RECORDS SUMMARY | 2024-06-25 09:57 | XMS_ITS | Encounter Summary ---
Author Organization [facility] Healthcare Address [address] [place] [address] Care Team Providers Care Electroplating Sales Representative Name Role Phone No, Physician Primary Care Provider [phone] Encounter Details Date Type Department Care Team (Late st Contact Info) Description 04/16/2020 Telephone [facility] Occupatiuonal Health [address] [facility] Room [address] (Third Floor) [place] [address] Nora Angel NP [address] [place] [address] Social History Tobacco Use Types Packs/Day Years Used Date Smoking Tobacco: Former Smokeless Tobacco: Never Alcohol Use Standard Drinks/Week Comments No 0 (1 standard drink = 0.6 oz pur e alcohol) Comments No Sex and Gender Information Value Date Recorded Sex Assigned at Not on file 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 Asymptomatic. Public health required testing due to exposure. documented in this encounter Plan of Treatment Not on file documented as of this encounter Visit Diagnoses Diagnosis Exposure to COVID-19 virus- Primary documented in this encounter Additional Health Concerns Infection Onset Date Last Indicated Resolved Time Exposure, COVID-19 Comment:Added automatically based on COVID19 lab answers indicating exposure risk 04/16/2020 04/16/2020 05/01/2020 3:[address] documented as of this encounter Care Teams Electroplating Sales Representative Relationship Specialty Start Date End Date No, Physician PCP - General 04/04/20 05/20/20 documented as of this encounter
--- OUTSIDE RECORDS SUMMARY | 2024-06-25 09:57 | XMS_ITS | Encounter Summary ---
Author Organization [facility] Healthcare Address [address] [place] [address] Care Team Providers Care Legislative Analyst Name Role Phone No, Physician Primary Care Provider [phone] Reason for Visit * Reason Onset Date Comments COVID CLUSTER ORDERS 04/09/2020 Encounter Details Date Type Department Care Team ([facility] st Contact Info) Description 04/09/2020 Telephone [facility] [address] [place] [address] Room [address] (Third Floor) [place] [address] Radha Reynolds, BONNIE [address] [place] [address] COVID CLUSTER ORDERS Social History Tobacco Use Types Packs/Day Years Used Date Smoking Tobacco: Former Smokeless Tobacco: Never Alcohol Use Standard Drinks/Week Comments No 0 (1 standard drink = 0.6 oz pur e alcohol) Comments No Sex and Gender Information Value Date Recorded Sex Assigned at Not on file 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 Asymptomatic. Public health required testing due to exposure. documented in this encounter Plan of Treatment Not on file documented as of this encounter Visit Diagnoses Diagnosis Exposure to COVID-19 virus- Primary documented in this encounter Additional Health Concerns Infection Onset Date Last Indicated Resolved Time Exposure, COVID-19 Comment:Added automatically based on COVID19 lab answers indicating exposure risk 03/26/2020 03/26/2020 04/10/2020 3:06 AM C DT documented as of this encounter Care Teams Legislative Analyst Relationship Specialty Start Date End Date No, Physician PCP - General 04/04/20 05/20/20 documented as of this encounter
--- OUTSIDE RECORDS SUMMARY | 2024-06-25 09:57 | XMS_ITS | Encounter Summary ---
Author Organization [facility] Address [address] [place] [address] Care Team Providers Care Banking Manager Name Role Phone No, Physician Primary Care Provider [phone] Reason for Visit * Reason Comments New Patient Pt was seen last wed @ [facility] Numbness Right sided Tingling Right sided Encounter Details Date Type Department Care Team (Late st Contact Info) Description 04/04/2020 3:00 PM CDT Office Visit 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 Gender Identity Not on file Sexual Orientation Not on file documented as of this encounter Last Filed Vital Signs Vital Sign Reading Time Taken Comments Blood Pressure 102/68 04/04/2020 3:35 PM CDT Pulse 106 04/04/2020 3:35 PM CDT Temperature 36.6 ??C (97.8 ??F) 04/04/2020 3:35 PM CD T Respiratory Rate - - Oxygen Saturation - - Inhaled Oxygen Concentration - - Weight 55.7 kg (122 lb 12.8 oz) 04/04/2020 3:35 PM CDT Height 154.9 cm (5' 1 ) 04/04/2020 3:35 PM CDT Body Mass Index 23.2 04/04/2020 3:35 PM CDT documented in this encounter Progress Notes * David Gomez MD - 04/04/2020 3:00 PM CDT Images from the original note were not included. 04/04/2020 Patient ID: Krisyt Kapoor is a 44 y.o. female. Chief Complaint New Patient (Pt was seen last month @ [facility]), Numbness (Right sided), and Tingling (Right sided) HPI: 44-year-old woman presents as a follow-up patient from recent overnight hospitalization at [facility]. She was recently hospitalized overnight at [facility] after awakening with right arm stiffness, weakness, and numbness. Independent of this she has been noticing occasional paresthesia intermittently in her right leg and on rare occasion in the right side of her face. Upon hospitalization through the emergency room she underwent a noncontrast brain CT which was unrevealing. Follo w-up MRI of the brain, cervical spine, thoracic spine, and lumbar spine were all unrevealing. She was discharged home and outpatient neurological evaluation was recommended. Her symptoms remained unchanged during her hospitalization and upon discharge. Since being discharged, however, she has noticed spontaneous improvement although still cites subjective fluctuant weakness in the right arm and fluctuant diffuse right arm numbness. She knows of no alleviating or exacerbating factors. She cites some mild right shoulder pain, but no neck pain. She denies changes in vision, speech, language, or coordination. She says that her hand has tremor if she holds anything in her right hand for an extended period of time. She denies any wrist or elbow pain on the right. Past Medical History: Diagnosis Date ??? Anxiety disorder Anxiety ??? Depression Depression ??? History of tubal ligation History of tubal ligation ??? Mass of breast Lump or mass in breast ??? Posttraumatic stress disorder PTSD - Post-traumatic stress disorder Allergies Allergen Reactions ??? Guaifenesin Nr [Guaifenesin] Anaphylaxis ??? Pravastatin Nausea only and Vomiting Reaction: Nausea, Vomiting, ??? Sulfamethoxazole-Trimethoprim Hives ??? Nitrofurantoin Hives and Unknown ??? Oxybutynin Hives and Unknown ??? Ibuprofen Nausea only ??? Pseudoephedrine Palpitations ??? Tramadol Other (See comments) Heart race ??? Vicodin [Hydrocodone-Acetaminophen] Vomiting Current Outpatient Medications: ??? Wellbutrin SR, take 1 tablet by oral route every day ??? clonazePAM, ??? spironolactone, take 1 tablet by oral route every day ??? albuterol HFA, 2 puff, inhalation, Q4H PRN (Patient not taking: Reported on 04/04/2020) ??? Augmentin, take 1 tablet by oral route every 12 hours ??? benzonatate, 100 mg, oral, TID PRN (Patient not taking: Reported on 04/04/2020) ??? busPIRone, take 1 tablet by oral route 2 times every day ??? Narcan, Call 911. Administer a single spray in one nostril. Repeat every 3 minutes as needed ifno or minimal response. Social History Socioeconomic History ??? Marital status: Unknown Spouse name: None ??? Number of children: None ??? Years of education: None ??? Highest education level: None Occupational History ??? None Social Needs ??? Financial resource strain: None ??? Food insecurity Worry: None Inability: None ??? Transportation needs Medical: None Non-medical: None Tobacco Use ??? Smoking status: Former Smoker ??? Smokeless tobacco: Never Used Substance and Sexual Activity ??? Alcohol use: No ??? Drug use: No ??? Sexual activity: None Lifestyle ??? Physical activity Days per week: None Minutes per session: None ??? Stress: None Relationships ??? Social connections Talks on phone: None Gets together: None Attends jewish service: None Active member of club or organization: None Attends meetings of clubs or organizations: None Relationship status: None ??? Intimate partner violence Fear of current or ex partner: None Emotionally abused: None Physically abused: None Forced sexual activity: None Other Topics Concern ??? None Social History Narrative ??? None Family History Problem Relation Age of Onset ??? Heart disease Other Family history of Cardiovascular disease; ??? Diabetes Other Family history of Diabetes mellitus; ??? No Known Problems Mother ??? No Known Problems Father ??? No Known Problems Brother Review of Systems Constitutional: Negative for activity change, chills, fever and unexpected weight change. HENT: Negative for hearing loss, sore throat and tinnitus. Denies Tinnitus Eyes: Negative for pain. Respiratory: Negative for cough, shortness of breath and wheezing. Cardiovascular: Negative for chest pain, palpitations and leg swelling. Denies Poor Circulation Gastrointestinal: Negative for abdominal pain, constipation, diarrhea, nausea and vomiting. Endocrine: Negative for cold intolerance, heat intolerance and polyuria. Genitourinary: Negative for difficulty urinating, dysuria, frequency and urgency. Denies Incontinence Musculoskeletal: Negative for arthralgias, back pain, myalgias, neck pain and neck stiffness. Skin: Negative for color change and rash. Denies Birthmarks Deniees Tattoos Allergic/Immunologic: Negative for environmental allergies and food allergies. Neurological: Positive for weakness and numbness. Negative for dizziness, tremors, seizures, syncope, facial asymmetry, speech difficulty, light- headedness and headaches. Hematological: Does not bruise/bleed easily. Psychiatric/Behavioral: Denies Visual Hallucinations Denies Auditory Hallucinations Denies Motor Tics BP 102/68 (BP Location: Left arm, Patient Position: Sitting) Pulse 106 Temp 36.6 ??C (97.8 ??F) Ht 154.9 cm (5' 1 ) Wt 55.7 kg (122 lb 12.8 oz) BMI 23.20 kg/m?? General Examination: Patient appears of stated age in no apparent distress Cardiac Examination: Regular rate and rhythm without murmur Neck Examination: No audible carotid bruits; Full ROM, nontender Lumbar Examination: Full ROM, nontender Extremity Examination: Posterior Tibial and Dorsalis Pedis pulses 2+, symmetric Neurologic Exam Mental Status Oriented to person. Oriented to place. Oriented to time. Oriented to year, month, date and day. Attention: normal. Concentration: normal. Speech: speech is normal Level of consciousness: alert Knowledge: consistent with education. Able to perform simple calculations. Able to read. Able to repeat. Able to write. Normal comprehension. Cranial Nerves CN II Visual cantu full to confrontation. Visual acuity: normal Right visual field deficit: none Left visual field deficit: none CN III, IV, Pupils are equal, round, and reactive to light. Extraocular motions are normal. Right pupil: Shape: regular. Reactivity: brisk. Consensual response: intact. Left pupil: Shape: regular. Reactivity: brisk. Consensual response: intact. CN V Facial sensation intact. CN VII Facial expression full, symmetric. CN VIII CN VIII normal. CN IX, X CN IX normal. CN X normal. CN XI CN XI normal. CN XII CN XII normal. Funduscopic Examination Normal Bilaterally Motor Exam Muscle bulk: normal Overall muscle tone: normal Right arm tone: normal Left arm tone: normal Right leg tone: normal Left leg tone: normal Strength Strength 5/5 except as noted. Right neck flexion: 5/5 Left neck flexion: 5/5 Right neck extension: 5/5 Left neck extension: 5/5 Right deltoid: 5/5 Left deltoid: 5/5 Right biceps: 5/5 Left biceps: 5/5 Right triceps: 5/5 Left triceps: 5/5 Right wrist flexion: 5/5 Left wrist flexion: 5/5 Right wrist extension: 5/5 Left wrist extension: 5/5 Right interossei: 5/5 Left interossei: 5/5 Right iliopsoas: 5/5 Left iliopsoas: 5/5 Right quadriceps: 5/5 Left quadriceps: 5/5 Right hamstrin/5 Left hamstrin/5 Right glutei: 5/5 Left glutei: 5/5 Right anterior tibial: 5/5 Left anterior tibial: 5/5 Right posterior tibial: 5/5 Left posterior tibial: 5/5 Right peroneal: 5/5 Left peroneal: 5/5 Right gastroc: 5/5 Left gastroc: 5/5 Sensory Exam Light touch normal. Vibration normal. Proprioception normal. Pinprick normal. To nose testing negative at wrist and elbows bilaterally Gait, Coordination, and Reflexes Gait Gait: normal Coordination Romberg: negative Finger to nose coordination: normal Heel to russ coordination: normal Tandem walking coordination: normal Tremor Resting tremor: absent Intention tremor: absent Action tremor: absent Reflexes Right brachioradialis: 2+ Left brachioradialis: 2+ Right biceps: 2+ Left biceps: 2+ Right triceps: 2+ Left triceps: 2+ Right patellar: 2+ Left patellar: 2+ Right achilles: 2+ Left achilles: 2+ Right plantar: normal Left plantar: normal Normal arm swing during ambulation bilaterally. Assessment/Plan Diagnoses and all orders for this visit: Numbness and tingling of right arm (Primary) Assessment & Plan: Patient's cites paresthesia in the right arm associated with some subjective weakness. She has reported prior paresthesia in her right face and right leg from time to time on associated with her present complaints. Neuroimaging of the brain and spine are un revealing of lesions suggesting primary demyelination. Orders: - EMG/NCV -Please select the performing region: External Order; Future Weakness of right arm Assessment & Plan: Patient provides a several week history of subjective weakness and fluctuant numbness throughout the right arm after awakening 1 morning. Neuroimaging of the brain, cervical, thoracic, and lumbar spines are unrevealing. She has noticed some spontaneous improvement. Her history is suggestive of a possible compressive neuropathy or possibly plexopathy given the associated right shoulder discomfort.I do not see any objective weakness today on her examination and sensation appears preserved to modality testing. Reflexes are symmetric. I will refer her for neurophysiologic assessment of the right upper extremity, and I plan on seeingher back thereafter. Orders: - EMG/NCV -Please select the performing region: External Order; Future I spent a total of 30 Face to Face minutes of which more than 50% of the time was spent in counseling and coordination of care. David Gomez MD documented in this encounter Miscellaneous Notes * Assessment & Plan Note - David Gomez MD - 04/04/2020 4:18 PM CDT Associated Problem(s): Numbness and tingling of right arm Patient's cites paresthesia in the right arm associated with some subjective weakness. She has reported prior paresthesia in her right face and right leg from time to time on associated with her present complaints. Neuroimaging of the brain and spine are un revealing of lesions suggesting primary demyelination. * Assessment & Plan Note - David Gomez MD - 04/04/2020 4:16 PM CDT Associated Problem(s): Weakness of right arm (Resolved 06/02/2021) Patient provides a several week history of subjective weakness and fluctuant numbness throughout the right arm after awakening 1 morning. Neuroimaging of the brain, cervical, thoracic, and lumbar spines are unrevealing. She has noticed some spontaneous improvement. Her history is suggestive of a possible compressive neuropathy or possibly plexopathy given the associated right shoulder discomfort.I do not see any objective weakness today on her examination and sensation appears preserved to modality testing. Reflexes are symmetric. I will refer her for neurophysiologic assessment of the right upper extremity, and I plan on seeingher back thereafter. documented in this encounter Plan of Treatment Not on file documented as of this encounter Visit Diagnoses Diagnosis Numbness and tingling of right arm- Primary Weakness of right arm Other musculoskeletal symptoms referable to limbs documented in this encounter Additional Health Concerns Infection Onset Date Last Indicated Resolved Time Exposure, COVID-19 Comment:Added automatically based on COVID19 lab answers indicating exposure risk 03/26/2020 03/26/2020 04/10/2020 3:06 AM C DT documented as of this encounter Care Teams Banking Manager Relationship Specialty Start Date End Date No, Physician PCP - General 04/04/20 05/20/20 documented as of this encounter
--- OUTSIDE RECORDS SUMMARY | 2024-06-25 09:57 | XMS_ITS | Encounter Summary ---
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 Asymptomatic. Public health required testing due to exposure. LITIES SUPERVISOR documented in this encounter Plan of [...] documented as of this encounter Care Teams Corporate Paralegal Relationship Specialty Start Date End Date Eliseo Lambert MD PCP - General Family Medicine 05/21/20 06/29/23 documented as of this encounter
--- OUTSIDE RECORDS SUMMARY | 2024-06-25 09:57 | XMS_ITS | Encounter Summary ---
Author Organization [facility] Healthcare Address [address] [place] [address] Care Team Providers Care Embedded Software Programmer Name Role Phone No, Physician Primary Care Provider [phone] Encounter Details Date Type Department Care Team (Late st Contact Info) Description 04/30/2020 Telephone [facility] Healthcare Occupatiuonal Health [address] [facility] Room [address] (Third Floor) [place] [address] Nora Angel NP [address] [place] [address] Social History Tobacco Use Types Packs/Day Years Used Date Smoking Tobacco: Former Smokeless Tobacco: Never Alcohol Use Standard Drinks/Week Comments No 0 (1 standard drink = 0.6 oz pur e alcohol) Comments No Sex and Gender Information Value Date Recorded Sex Assigned at Not on file Legal Sex Female 1:17 AM 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 Asymptomatic. Public health required testing due to exposure. MOWER REPAIR MECHANIC documented in this encounter Plan of Treatment Not on file documented as of this encounter Visit Diagnoses Diagnosis Exposure to COVID-19 virus- Primary documented in this encounter Additional Health Concerns Infection Onset Date Last Indicated Resolved Time Exposure, COVID-19 Comment:Added automatically based on COVID19 lab answers indicating exposure risk 04/16/2020 04/16/2020 05/01/2020 3:[address] documented as of this encounter Care Teams Embedded Software Programmer Relationship Specialty Start Date End Date No, Physician PCP - General 04/04/20 05/20/20 documented as of this encounter
--- OUTSIDE RECORDS SUMMARY | 2024-06-25 09:57 | XMS_ITS | Encounter Summary ---
Author Organization [facility] Address [address] [place] [address] Care Team Providers Care Mortgage Processor Name Role Phone Eliseo Lambert MD Primary Care Provider Reason for Visit * Reason Comments Anxiety/Depression new patient Encounter Details Date Type Department Care Team (Late st Contact Info) Description 05/21/2020 3:30 PM GEOTHERMAL SYSTEM INSTALLER Office Visit [facility] [address] [facility] [address] [place] [address] Elsieo Lambert MD [address] [place] [address] [address] [place] [address] Encounter for screening mammogram for malignant neoplasm of breast; PTSD (post-traumatic stress disorder); Dyssomnia; Major depressive disorder with single episode, in partial remission (CMS/HCC); Generalized anxiety disorder; Mixed hyperlipidemia; Weakness of right arm; Cystic acne vulgaris; Anemia, unspecified type; Impaired fasting glucose; Urinary frequency Social History Tobacco Use Types [...] on file Legal Sex Female 1:17 AM GEOTHERMAL SYSTEM INSTALLER Gender Identity Not on file Sexual Orientation Not on file 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 Not on file Not on file documented as of this encounter Last Filed Vital Signs Vital Sign Reading Time Taken Comments Blood Pressure 100/68 05/21/2020 3:41 PM GEOTHERMAL SYSTEM INSTALLER Pulse 79 05/21/2020 3:41 PM GEOTHERMAL SYSTEM INSTALLER Temperature 36.5 ??C (97.7 ??F) 05/21/2020 3:41 PM CS T Respiratory Rate - - Oxygen Saturation 100% 05/21/2020 3:41 PM GEOTHERMAL SYSTEM INSTALLER Inhaled Oxygen Concentration - - Weight 58.5 kg (129 lb) 05/21/2020 3:41 PM GEOTHERMAL SYSTEM INSTALLER Height 160.5 cm (5' 3.19 ) 05/21/2020 3:41 PM CS T Body Mass Index 22.71 05/21/2020 3:41 PM GEOTHERMAL SYSTEM INSTALLER documented in this encounter Ordered Prescriptions Prescription Sig Dispense Quantity Refills Last Filled Start Date End Date spironolactone (ALDACTONE) 100 mg tablet Take 1 tablet (100 mg total) by mouth daily 90 tablet 05/21/2020 09/06/2020 documented in this encounter Progress Notes * Eliseo Lambert MD - 05/21/2020 3:30 PM CST Images from the original note were not included. Subjective/Objective Chief Complaint Anxiety/Depression (new patient) History of Present Illness HPI Kristy Kapoor is a 44 y.o. White female who presents here today to establish care with known conditions of PTSD, anxiety, depression, history of acne, weakness of the right upper extremity as well asparesthesias as well as hyperlipidemia. I have reviewed: allergies, current medications, past family history, past medical history, past social history, past surgical history and problem list. I have updated the relevant sections when necessary. Patient has history of PTSD currently follows up with psychiatry. She is currently on clonazepam aswell as Wellbutrin at this time. She has been on other medications without the expected outcomes. She has been told that she will be weaning off the clonazepam gradually. Overall she feels that her PTSD as well as depression anxiety is fairly well controlled with her current medications. Patient also has right upper extremity weakness as well as paresthesias for which she has been evaluated. She was actually admitted to the hospital for her right arm stiffness, weakness as well as numbness. During her hospitalization she did have MRI of the brain, cervical spine, thoracic spine as well as lumbar spine which were all unremarkable. She was discharged with follow-up with a neurology. She has seen neurology on April 04, 2020 and after evaluating her the recommendation was to be referred to neurophysiological assessment of the right upper extremity with plan to see her afterwards. This has not been done so far. The 10-year ASCVD risk score (Dianne GHOTRA Jr., et al., 2013) is: 0.5% Values used to calculate the score: Age: 44 years Sex: Female Is Non- : No Diabetic: No Tobacco smoker: No Systolic Blood Pressure: 100 mmHg Is BP treated: No HDL Cholesterol: 63 mg/dL Total Cholesterol: 215 mg/dL PHQ Screening Over the last 2 weeks, how [...] Down, Depressed, or Hopeless: Nearly every day Trouble Falling or Staying Asleep, or Sleeping too Much: Not at all Feeling Tired or Having Little Energy: Not at all Poor Appetite or Overeating: Not at all Feeling Bad About Yourself - or That You are a Failure or Have Let Yourself or Your Family Down: More than half the days Trouble Concentrating on Things, Such as Reading the Newspaper or Watching Television: Not at all Moving or Speaking so Slowly That Other People Could Have Noticed, or the Opposite - Being so Fidgety or Restless That You Have Been Moving Around a lot More Than Usual: Not at all Thoughts That You Would be Better off , or of Hurting Yourself in Some Way: Not at all PHQ-9 Total Score: 8 If you checked off any problems, how difficult have these problems made it for you to do your work,take care of things at home, or get along with other people?: Not difficult at all Interpretation of PHQ9 Total Score 1-4 = Minimal depression 5-9 = Mild depression 10-14 = Moderate depression 15-19 = Moderately severe depression 20-27 = Severe depression She states she has right side weakness She has hx of acne, cystic, hormonal acne She was seeing dermatology She was on it for Care Team Providers: Patient Care Team: Eliseo Lambert MD as PCP - General (Family Medicine) Past Medical History Past Medical History: Diagnosis Date ??? Anxiety disorder Anxiety ??? Depression Depression ??? History of tubal ligation History of tubal ligation ??? Mass of breast Lump or mass in breast ??? Posttraumatic stress disorder PTSD - Post-traumatic stress disorder Past Surgical History: Procedure Laterality Date ??? BREAST LUMPECTOMY Left benign findings ??? FACIAL COSMETIC SURGERY ??? GALLBLADDER SURGERY Social History Socioeconomic History ??? Marital status: Single Spouse name: Not on file ??? Number of children: 4 ??? Years of education: Not on file ??? Highest education level: Not on file Occupational History ??? 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 Financial resource strain: Not on file ??? Food insecurity Worry: Not on file Inability: Not on file ??? Transportation needs Medical: Not on file Non-medical: Not on file Tobacco Use ??? Smoking status: Former Smoker ??? Smokeless tobacco: Never Used Substance and Sexual Activity ??? Alcohol use: No ??? Drug use: No ??? Sexual activity: Not on file Lifestyle ??? Physical activity Days per week: Not on file Minutes per session: Not on file ??? Stress: Not on file Relationships ??? Social connections Talks on phone: Not on file Gets together: Not on file Attends islam service: Not on file Active member of club or organization: Not on file Attends meetings of clubs or organizations: Not on file Relationship status: Not on file ??? Intimate partner violence Fear of current or ex partner: Not on file Emotionally abused: Not on file Physically abused: Not on file Forced sexual activity: Not on file Other Topics Concern ??? Not on file Social History Narrative Lives with her 3 younger children. Family History Problem Relation Age of Onset ??? Heart disease Other Family history of Cardiovascular disease; ??? Diabetes Other Family history of Diabetes mellitus; ??? Hypertension Mother ??? Atrial fibrillation Father ??? Coronary artery disease Father ??? No Known Problems Brother Allergies Allergen Reactions ??? Guaifenesin Nr [Guaifenesin] Anaphylaxis ??? Pravastatin Nausea only and Vomiting Reaction: Nausea, Vomiting, ??? Sulfamethoxazole-Trimethoprim Hives ??? Nitrofurantoin Hives and Unknown ??? Oxybutynin Hives and Unknown ??? Ibuprofen Nausea only ??? Pseudoephedrine Palpitations ??? Tramadol Other (See comments) Heart race ??? Vicodin [Hydrocodone-Acetaminophen] Vomiting Review of Systems Constitutional: Negative for chills, fatigue and fever. HENT: Negative for congestion and sore throat. Eyes: Negative for visual disturbance. Respiratory: Negative for cough and shortness of breath. Cardiovascular: Negative for chest pain and leg swelling. Gastrointestinal: Negative for abdominal pain and nausea. Genitourinary: Negative for difficulty urinating and dysuria. Skin: Negative for rash and wound. +Acne Neurological: Positive for weakness (right upper and lower extremities) and light-headedness (in past due to low BP ). Negative for dizziness, facial asymmetry and speech difficulty. +parasthesias in right upper extremity Psychiatric/Behavioral: Positive for dysphoric mood and sleep disturbance. Negative for agitation, behavioral problems, hallucinations and suicidal ideas. The patient is nervous/anxious. The patient is not hyperactive. Vitals: 05/21/20 1541 BP: 100/68 BP Location: Right arm Patient Position: Sitting Pulse: 79 Temp: 36.5 ??C (97.7 ??F) TempSrc: Temporal SpO2: 100% Weight: 58.5 kg (129 lb) Height: 160.5 cm (5' 3.19 ) Body mass index is 22.71 kg/m??. Physical Exam Vitals signs reviewed. Constitutional: General: She is not in acute distress. Appearance: Normal appearance. She is normal weight. HENT: Head: Normocephalic and atraumatic. Nose: Nose normal. Mouth/Throat: Mouth: Mucous membranes are moist. Eyes: Extraocular Movements: Extraocular movements intact. Pupils: Pupils are equal, round, and reactive to light. Neck: Musculoskeletal: Normal range of motion. Cardiovascular: Rate and Rhythm: Normal rate and regular rhythm. Pulses: Normal pulses. Pulmonary: Effort: Pulmonary effort is normal. No respiratory distress. Breath sounds: Normal breath sounds. No wheezing. Abdominal: General: Abdomen is flat. There is no distension. Palpations: Abdomen is soft. Musculoskeletal: Normal range of motion. General: No deformity. Right lower leg: No edema. Left lower leg: No edema. Skin: General: Skin is warm and dry. Findings: No rash. Neurological: General: No focal deficit present. Mental Status: She is alert and oriented to person, place, and time. Mental status is at baseline. Gait: Gait normal. Comments: Right upper and lower extremity 4/5 strength Left upper and lower extremity 5/5 strength Psychiatric: Mood and Affect: Mood normal. Behavior: Behavior normal. Thought Content: Thought content normal. Judgment: Judgment normal. Assessment/Plan Diagnoses and all orders for this visit: Encounter for screening mammogram for malignant neoplasm of breast (Z12.31) - Screening Mammogram Bilateral W [place]; Future PTSD (post-traumatic stress disorder) (F43.10) Assessment & Plan: - following with psychiatry - currently on clonazepam and wellbutrin at this time - she has tried other medications without good outcomes Dyssomnia (G47.9) Assessment & Plan: - has insomnia, she has been prescribed medication but she does not use it - she does not recall the name of the medications Major depressive disorder with single episode, in partial remission ([facility]) (F32.4) Assessment & Plan: - chronic history - follows with psychiatry - well controlled with current wellbutrin Generalized anxiety disorder (F41.1) Assessment & Plan: - follows with psychiatry - currently on Wellbutrin And Klonopin - well managed with current medications Mixed hyperlipidemia (E78.2) Assessment & Plan: - noted on most recent lipid panel - mildly elevated LDL and triglyceride - The 10-year ASCVD risk score ([place] PARADISE Jr., et al., 2013) is: 0.5% Values used to calculate the score: Age: 44 years Sex: Female Is Non- : No Diabetic: No Tobacco smoker: No Systolic Blood Pressure: 100 mmHg Is BP treated: No HDL Cholesterol: 63 mg/dL Total Cholesterol: 215 mg/dL - recommend lifestyle intervention Weakness of right arm (R29.898) - Ambulatory referral order to Physical Therapy -; Future Cystic acne vulgaris (L70.0) Assessment & Plan: - used to follow with dermatology - she has used isotretinoin before - she understands the risks of lowering BP with the medication Anemia, unspecified type (D64.9) - CBC without differential; Future Impaired fasting glucose (R73.01) - Comprehensive metabolic panel; Future - Hemoglobin A1c; Future Urinary frequency (R35.0) - POCT UA, AUTO W/O SCOPE Other orders - spironolactone (ALDACTONE) 100 mg tablet; Take 1 tablet (100 mg total) by mouth daily Eliseo Lambert MD May 22, 2020 Voice recognition software Bringg Direct was used dictate and transcribe this document. Dish Maker variances may occur. Despite proofreading, typographical errors may occur. HERMAL SYSTEM INSTALLER documented in this encounter Miscellaneous Notes * Assessment & Plan Note - Eliseo Lambert MD - 05/21/2020 4:15 PM GEOTHERMAL SYSTEM INSTALLER Associated Problem(s): Cystic acne vulgaris - used to follow with dermatology - she has used isotretinoin before - she understands the risks of lowering BP with the medication HERMAL SYSTEM INSTALLER * Assessment & Plan Note - Eliseo Lambert MD - 05/21/2020 4:04 PM GEOTHERMAL SYSTEM INSTALLER Associated Problem(s): Pure hypercholesterolemia - noted on most recent lipid panel - mildly elevated LDL and triglyceride - The 10-year ASCVD risk score (Dianne PARADISE Jr., et al., 2013) is: 0.5% Values used to calculate the score: Age: 44 years Sex: Female Is Non- : No Diabetic: No Tobacco smoker: No Systolic Blood Pressure: 100 mmHg Is BP treated: No HDL Cholesterol: 63 mg/dL Total Cholesterol: 215 mg/dL - recommend lifestyle intervention HERMAL SYSTEM INSTALLER * Assessment & Plan Note - Eliseo Lambert MD - 05/21/2020 3:57 PM GEOTHERMAL SYSTEM INSTALLER Associated Problem(s): Psychophysiological insomnia - has insomnia, she has been prescribed medication but she does not use it - she does not recall the name of the medications HERMAL SYSTEM INSTALLER * Assessment & Plan Note - Eliseo Lambert MD - 05/21/2020 3:56 PM GEOTHERMAL SYSTEM INSTALLER Associated Problem(s): Generalized anxiety disorder - follows with psychiatry - currently on Wellbutrin And Klonopin - well managed with current medications HERMAL SYSTEM INSTALLER * Assessment & Plan Note - Eliseo Lambert MD - 05/21/2020 3:55 PM GEOTHERMAL SYSTEM INSTALLER Associated Problem(s): Moderate episode of recurrent major depressive disorder (HCC) - chronic history - follows with psychiatry - well controlled with current wellbutrin HERMAL SYSTEM INSTALLER * Assessment & Plan Note - Eliseo Lambert MD - 05/21/2020 3:54 PM GEOTHERMAL SYSTEM INSTALLER Associated Problem(s): PTSD (post-traumatic stress disorder) - following with psychiatry - currently on clonazepam and wellbutrin at this time - she has tried other medications without good outcomes HERMAL SYSTEM INSTALLER documented in this encounter Plan of Treatment Not on file documented as of this encounter Procedures Procedure Name Priority Date/Time Associated Diagnosis Comments POCT URINALYSIS, AUTO W/O SCOPE Routine 05/21/2020 4:48 PM GEOTHERMAL SYSTEM INSTALLER Urinary frequency documented in this encounter Results * Hemoglobin A1c (05/30/2020 6:14 AM GEOTHERMAL SYSTEM INSTALLER) Hgb A1C 5.3 4.0 - 5.6 % JANIE LOYOLA (AMANUEL) Estimated Average Glucose 105 mg/dL JANIE LOYOLA (AMANUEL) Comment: The ADA recommends reporting an estimated Average Glucose (eAG) with all Hemoglobin A1c results using the equation derived from a study of 507 normal and diabetic adults. ??Minority populations were underrepresented and children were not included. ?? (Diabetes Care 31:5765-2541, 2008). ??The eAG is not equivalent to a fasting glucose. Blood specimen (specimen) 05/30/2020 6:14 AM GEOTHERMAL SYSTEM INSTALLER 05/30/2020 7:02 AM GEOTHERMAL SYSTEM INSTALLER Eliseo Lambert MD LAB BLOOD ORDERABLES Fi nal Result [facility] (AMANUEL) [address] [facility] [email or web address] [address] * (ABNORMAL) CBC without differential (05/30/2020 6:14 AM GEOTHERMAL SYSTEM INSTALLER) WBC 6.5 3.8 - 9.9 K/cumm CERNER [...] (AMANUEL) Blood specimen (specimen) 05/30/2020 6:14 AM GEOTHERMAL SYSTEM INSTALLER 05/30/2020 7:02 AM GEOTHERMAL SYSTEM INSTALLER Eliseo Lambert MD LAB BLOOD ORDERABLES Fi nal Result Performing Organization Address City/[facility]/ZIP Co de Phone Number [facility] (AMANUEL) 1 [facility] [place] [address] * (ABNORMAL) Comprehensive metabolic panel (05/30/2020 6:14 AM GEOTHERMAL SYSTEM INSTALLER) Sodium 139 135 - 145 mmol/L CERNER [...] (AMANUEL) Blood specimen (specimen) 05/30/2020 6:14 AM GEOTHERMAL SYSTEM INSTALLER 05/30/2020 7:02 AM GEOTHERMAL SYSTEM INSTALLER us Eliseo Lambert MD LAB BLOOD ORDERABLES Fi nal Result [facility] (AMANUEL) [address] [facility] [place] [address] * POCT UA, AUTO W/O SCOPE (05/21/2020 4:48 PM GEOTHERMAL SYSTEM INSTALLER) Color, Urine, POC Light Yellow Clarity, ur, POC Clear Clear Glucose, ur, POC Negative Negative mg/dL Bilirubin, ur, POC Negative Negative, Small, Moderate, Large Ketones, ur, POC Negative Negative Specific [place], POC 1.010 1.005 - 1.030 Blood, ur, POC Negative Negative pH, ur, POC 5.5 5.0 - 8.0 Protein, ur, POC Negative Negative Urobilinogen, Urine, POC 0.2 mg/dL Leukocytes, ur, POC Negative Negative Nitrite, ur, POC Negative Negative Appearance, fld Clear Clear Urine, clean voided 05/21/2020 4:48 PM GEOTHERMAL SYSTEM INSTALLER Eliseo Lambert MD POINT OF CARE TEST MIKE CABALLEROFARRAH Final Result documented in this encounter Visit Diagnoses Diagnosis Encounter for screening mammogram for malignant neoplasm of breast PTSD (post-traumatic stress disorder) Posttraumatic stress disorder Dyssomnia Dysfunctions associated with sleep stages or arousal from sleep Major depressive disorder with single episode, in partial remission (HCC) Generalized anxiety disorder Mixed hyperlipidemia Weakness of right arm Other musculoskeletal symptoms referable to limbs Cystic acne vulgaris Other acne Anemia, unspecified type Impaired fasting glucose Urinary frequency documented in this encounter Discontinued Medications Medication Sig Discontinue Reason Start Date End Da te amoxicillin-clavulanate (AUGMENTIN) 875-125 mg per tablet take 1 tablet by oral route every 12 hours Therapy completed 01/03/2016 05/21/2020 benzonatate (TESSALON) 100 mg capsuleIndications:Coug h Take 1 capsule (100 mg total) by mouth 3 (three) times a day as needed for cough Therapy completed 07/26/2019 05/21/2020 buPROPion SR (WELLBUTRIN SR) 150 mg 12 hr tablet take 1 tablet by oral route every day Formulary change 01/03/2016 05/21/2020 busPIRone (BUSPAR) 30 mg tablet take 1 tablet by oral route 2 times every day Therapy completed 01/03/2016 05/21/2020 albuterol HFA (PROVENTIL HFA,VENTOLIN HFA,PROAIR HFA) 90 mcg/actuation inhalerIndications:Bron chospasm Prevention Inhale 2 puffs every 4 (four) hours as needed for wheezing or shortness of breath 07/26/2019 05/21/2020 spironolactone (ALDACTONE) 100 mg tablet take 1 tablet by oral route every day Reorder 01/03/2016 05/21/2020 documented as of this encounter Historical Medications * This list may reflect changes made after this encounter. buPROPion XL (WELLBUTRIN XL) 300 mg 24 hr tablet Take 1 tablet (300 mg total) by mouth every morning 04/12/2020 added in this encounter Additional Health Concerns Infection Onset Date Last Indicated Resolved Time Exposure, COVID-19 Comment:Added automatically based on COVID19 lab answers indicating exposure risk 05/07/2020 05/07/2020 05/22/2020 3:[address] documented as of this encounter Care Teams Mortgage Processor Relationship Specialty Start Date End Date Eliseo Lambert MD PCP - General Family Medicine 05/21/20 06/29/23 documented as of this encounter
--- OUTSIDE RECORDS SUMMARY | 2024-06-25 09:57 | XMS_ITS | Encounter Summary ---
Author Organization [facility] Healthcare Address [address] [place] [address] Care Team Providers Care Mud Analysis Well Logging Operator Name Role Phone No, Physician Primary Care Provider [phone] Encounter Details Date Type Department Care Team (Late st Contact Info) Description 05/07/2020 Telephone [facility] Occupatiuonal Health [address] [facility] [address] (Third Floor) [place] [address] Nora Angel NP [address] [place] [address] Social History Tobacco Use Types Packs/Day Years Used Date Smoking Tobacco: Former Smokeless Tobacco: Never Alcohol Use Standard Drinks/Week Comments No 0 (1 standard drink = 0.6 oz pur e alcohol) Comments No Sex and Gender Information Value Date Recorded Sex Assigned at Not on file Legal Sex Female 1:17 AM SWIMMING POOL MAINTENANCE Gender Identity Not on file Sexual Orientation Not on file documented as of this encounter Miscellaneous Notes * Telephone Encounter - Nora Angel NP - 05/07/2020 2:34 PM SWIMMING POOL MAINTENANCE COVID19 test order placed. Asymptomatic. Public health required testing due to exposure. MING POOL MAINTENANCE documented in this encounter Plan of Treatment Not on file documented as of this encounter Visit Diagnoses Diagnosis Exposure to COVID-19 virus- Primary documented in this encounter Additional Health Concerns Infection Onset Date Last Indicated Resolved Time Exposure, COVID-19 Comment:Added automatically based on COVID19 lab answers indicating exposure risk 05/07/2020 05/07/2020 05/22/2020 3:[address] documented as of this encounter Care Teams Mud Analysis Well Logging Operator Relationship Specialty Start Date End Date No, Physician PCP - General 04/04/20 05/20/20 documented as of this encounter
--- OUTSIDE RECORDS SUMMARY | 2024-06-25 09:57 | XMS_ITS | Encounter Summary ---
Author Organization [facility] Healthcare Address [address] [place] [address] Care Team Providers Care Lead Generation Specialist Name Role Phone No, Physician Primary Care Provider [phone] Encounter Details Date Type Department Care Team (Late st Contact Info) Description 05/14/2020 Telephone [facility] Occupatiuonal Health [address] [place] [address] [address] (Third Floor) [place] [address] Jessi Han September Social History Tobacco Use Types Packs/Day Years Used Date Smoking Tobacco: Former Smokeless Tobacco: Never Alcohol Use Standard Drinks/Week Comments No 0 (1 standard drink = 0.6 oz pur e alcohol) Comments No Sex and Gender Information Value Date Recorded Sex Assigned at Not on file Legal Sex Female 1:17 AM VENUE ATTENDANT Gender Identity Not on file Sexual Orientation Not on file documented as of this encounter Miscellaneous Notes * Telephone Encounter - Jessi Han - 05/14/2020 4:29 PM CST COVID19 test order placed. Asymptomatic. Public health required testing due to exposure. E ATTENDANT documented in this encounter Plan of Treatment Not on file documented as of this encounter Visit Diagnoses Diagnosis Exposure to COVID-19 virus- Primary documented in this encounter Additional Health Concerns Infection Onset Date Last Indicated Resolved Time Exposure, COVID-19 Comment:Added automatically based on COVID19 lab answers indicating exposure risk 05/07/2020 05/07/2020 05/22/2020 3:[address] documented as of this encounter Care Teams Lead Generation Specialist Relationship Specialty Start Date End Date No, Physician PCP - General 04/04/20 05/20/20 documented as of this encounter
--- OUTSIDE RECORDS SUMMARY | 2024-06-25 09:57 | XMS_ITS | Encounter Summary ---
Author Organization [facility] Healthcare Address [address] [place] [address] Care Team Providers Care Enrollment Representative Name Role Phone Eliseo Lambert MD Primary Care Provider Encounter Details Date Type Department Care Team (Late st Contact Info) Description 05/25/2020 Telephone [facility] [address] [facility] [address] (Third Floor) [place] [address] Nora Angel NP [address] [facility] [address] [place] [address] Social History Tobacco Use Types Packs/Day Years [...] file Legal Sex Female 1:17 AM MEDIA EXECUTIVE Gender Identity Not on file Sexual Orientation Not on file 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 Asymptomatic. Public health required testing due to exposure. A EXECUTIVE documented in this encounter Plan of Treatment [...] documented as of this encounter Care Teams Enrollment Representative Relationship Specialty Start Date End Date Eliseo Lambert MD PCP - General Family Medicine 05/21/20 06/29/23 documented as of this encounter
--- OUTSIDE RECORDS SUMMARY | 2024-06-25 09:57 | XMS_ITS | Encounter Summary ---
Author Organization [facility] Healthcare Address [address] [place] [address] Care Team Providers Care Manager Party Name Role Phone No, Physician Primary Care Provider [phone] Encounter Details Date Type Department Care Team (Late st Contact Info) Description 04/23/2020 Telephone [facility] Healthcare Occupatiuonal Health [address] [facility] Room [address] (Third Floor) [place] [address] Nora Angel NP [address] [place] [address] Social History Tobacco Use Types Packs/Day Years Used Date Smoking Tobacco: Former Smokeless Tobacco: Never Alcohol Use Standard Drinks/Week Comments No 0 (1 standard drink = 0.6 oz pur e alcohol) Comments No Sex and Gender Information Value Date Recorded Sex Assigned at Not on file 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 Asymptomatic. [...] documented as of this encounter Care Teams Manager Party Relationship Specialty Start Date End Date No, Physician PCP - General 04/04/20 05/20/20 documented as of this encounter
--- OUTSIDE RECORDS SUMMARY | 2024-06-25 09:58 | XMS_ITS | Encounter Summary ---
Author Organization [facility] Healthcare Address [address] [place] [address] Care Team Providers Care Casing Mixer Name Role Phone Asia Wyman NP Primary Care Provider Mark gee Encounter Details Date Type Department Care Team (Late st Contact Info) Description 02/15/2020 4:00 PM CDT Lab [address] [address] Close exposure to COVID-19 virus Social History Tobacco Use Types Packs/Day Years Used Date Smoking Tobacco: Former Alcohol Use Standard Drinks/Week Comments No 0 (1 standard drink = 0.6 oz pur e alcohol) Comments No Sex and Gender Information Value Date Recorded Sex Assigned at Not on file 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 The 2018-Novel Coronavirus Assay (COVID-19) Real Time RT-PCR assay is for in vitro diagnostic use under FDA emergency use authorization only. A negative RT-PCR result does not preclude infection with COVID-19 and should not be used as the sole basis for treatment or other patient management decisions. Additional sample types have been validated according to CLIA regulations. ?? Current Interpretive Data was last revised on 2019. Nasopharyngeal 02/15/2020 12 :17 PM CDT 02/15/2020 7:18 PM CDT Narrative JANIE GAMINO - 02/16/2020 2:40 AM CDT Patient is employed by:->[employer] Is the patient experiencing any symptoms consistent with COVID (eg. Fever, cough, shortness of breath)?->No What is the reason for testing?->Post-exposure testing required by public health agency us Wendi Reich MD LAB MICROBIOLOGY - GENERAL ORDERABLES Final Result JAN[facility] Department [place] [address] documented in this encounter Visit Diagnoses Diagnosis Close exposure to COVID-19 virus documented in this encounter Care Teams Casing Mixer Relationship Specialty Start Date End Date Asia Wyman NP PCP - General Nurse Practitioner 09/30/17 03/04/20 documented as of this encounter
--- OUTSIDE RECORDS SUMMARY | 2024-06-25 09:58 | XMS_ITS | Encounter Summary ---
Author Organization [facility] Healthcare Address [address] [place] [address] Care Team Providers Care Certified Novell Administrator Name Role Phone Asia Wyman NP Primary Care Provider Mark gee Encounter Details Date Type Department Care Team (Late st Contact Info) Description 01/30/[address] 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 Asymptomatic. Public health required testing due to exposure. documented in this encounter Plan of Treatment Not on file documented as of this encounter Results * COVID-19 Coronavirus RNA Nasopharyngeal (02/05/2020 10:13 AM CDT) COVID-19 RNA Not Detected JANIE GAMINO Comment: Interpretive Data Testing performed at [facility] Molecular Infectious Disease Laboratory. The 2019-Novel Coronavirus Assay (COVID-19) Real Time RT-PCR assay [...] Data was last revised on 2019. Nasopharyngeal 02/05/2020 10 :13 AM CDT 02/05/2020 9:37 PM CDT Narrative JANIE GAMINO - 02/06/2020 5:10 AM CDT Patient is employed by:->[employer] [facility] [employer] Is the patient experiencing any symptoms consistent with COVID (eg. Fever, cough, shortness of breath)?->No What is the reason for testing?->Post-exposure testing required by public health agency us Wendi Reich MD LAB MICROBIOLOGY - GENERAL ORDERABLES Final Result [facility]IE [facility] Department [place] [address] documented in this encounter Visit Diagnoses Diagnosis Close exposure to COVID-19 virus- Primary Close exposure to COVID-19 virus documented in this encounter Additional Health Concerns Infection Onset Date Last Indicated Resolved Time Exposure, COVID-19 Comment:Added automatically based on COVID19 lab answers indicating exposure risk 01/30/2020 01/30/2020 02/14/2020 3:05 AM C DT documented as of this encounter Care Teams Certified Novell Administrator Relationship Specialty Start Date End Date Asia Wyman NP PCP - General Nurse Practitioner 09/30/17 03/04/20 documented as of this encounter
--- OUTSIDE RECORDS SUMMARY | 2024-06-25 09:58 | XMS_ITS | Encounter Summary ---
Author Organization [facility] Address [address] [place] [address] Care Team Providers Care Can Sorter Name Role Phone Asia Wyman NP Primary Care Provider Mark gee Reason for Visit * Reason Comments Employment Physical Work px Encounter Details Date Type Department Care Team (Late st Contact Info) Description 03/01/2020 1:15 PM CDT Office Visit [facility] [address] [place] [address] [place] [address] Rin Noel, BONNIE [address] [place] [address] Encounter for physical examination related to employment (Primary Dx) Social History Tobacco Use Types Packs/Day Years Used Date Smoking Tobacco: Former Tobacco Cessation:Counseling Given: No Alcohol Use Standard Drinks/Week Comments No 0 (1 standard drink = 0.6 oz pur e alcohol) Comments No Sex and Gender Information Value Date Recorded Sex Assigned at Not on file 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 Gender Identity Not on file Sexual Orientation Not on file documented as of this encounter Last Filed Vital Signs Vital Sign Reading Time Taken Comments Blood Pressure 98/62 03/01/2020 1:26 PM CDT Pulse 92 03/01/2020 1:26 PM CDT Temperature 37 ??C (98.6 ??F) 03/01/2020 1:26 PM CDT Respiratory Rate 16 03/01/2020 1:26 PM CDT Oxygen Saturation 99% 03/01/2020 1:26 PM CDT Inhaled Oxygen Concentration - - Weight 54 kg (119 lb) 03/01/2020 1:26 PM CDT Height 154.9 cm (5' 1 ) 03/01/2020 1:26 PM CDT Body Mass Index 22.48 03/01/2020 1:26 PM CDT documented in this encounter Patient Instructions * Patient Instructions* Rin Noel NP - 03/01/2020 1:15 PM CDT No signs of infection or other problems which would impair ability to work. documented in this encounter Progress Notes * Rin Noel NP - 03/01/2020 1:15 PM CDT Images from the original note were not included. Subjective/Objective Patient ID: Kristy Kapoor is a 44 y.o. female. 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 Hx of chronic anxiety well-controlled, and acne - her spironolactone is for the acne prescribed by a cruise staff member. Review of Systems Constitutional: Negative for activity change, appetite change, chills, diaphoresis, fatigue, fever and unexpected weight change. HENT: Negative for congestion, dental problem, ear discharge, ear pain, hearing loss, nosebleeds, postnasal drip, rhinorrhea, sinus pressure, sinus pain, sneezing, sore throat, trouble swallowing andvoice change. Eyes: Negative for photophobia, pain, discharge, redness, itching and visual disturbance. Respiratory: Negative for apnea, cough, choking, chest tightness, shortness of breath, wheezing andstridor. Cardiovascular: Negative for chest pain, palpitations and leg swelling. Gastrointestinal: Negative for abdominal distention, abdominal pain, blood in stool, constipation, diarrhea, nausea and vomiting. Endocrine: Negative for cold intolerance, heat intolerance, polydipsia and polyuria. Genitourinary: Negative for difficulty urinating, dysuria, flank pain, frequency, hematuria and urgency. Musculoskeletal: Negative for arthralgias, back pain, gait problem, joint swelling, myalgias, neck pain and neck stiffness. Notes occasional muscle tension in neck and hands cramping with repetitive motion. Skin: Negative for color change, pallor, rash and wound. Allergic/Immunologic: Negative for immunocompromised state. Neurological: Negative for dizziness, tremors, seizures, syncope, speech difficulty, weakness, light-headedness and numbness. Hematological: Negative for adenopathy. Does not bruise/bleed easily. Psychiatric/Behavioral: Negative for agitation, behavioral problems, confusion, decreased concentration, dysphoric mood, hallucinations, self-injury, sleep disturbance and suicidal ideas. The patientis nervous/anxious. The patient is not hyperactive. Physical Exam Vitals signs reviewed. Constitutional: General: She is not in acute distress. Appearance: Normal appearance. She is well-developed. She is not ill-appearing or diaphoretic. HENT: Head: Normocephalic. Right Ear: Hearing, tympanic membrane, ear canal and external ear normal. Left Ear: Hearing, tympanic membrane, ear canal and external ear normal. Nose: Nose normal. No rhinorrhea. Mouth/Throat: Lips: [place]. No lesions. Mouth: Mucous membranes are moist. No oral lesions. Dentition: Normal dentition. Tongue: No lesions. Palate: No lesions. Pharynx: Oropharynx is clear. No pharyngeal swelling or posterior oropharyngeal erythema. Tonsils: No tonsillar exudate or tonsillar abscesses. Eyes: General: Lids are normal. Vision grossly intact. Gaze aligned appropriately. Extraocular Movements: Extraocular movements intact. Conjunctiva/sclera: Conjunctivae normal. Neck: Musculoskeletal: Full passive range of motion without pain. Thyroid: No thyroid mass. Vascular: No carotid bruit. Trachea: Trachea normal. Cardiovascular: Rate and Rhythm: Normal rate and regular rhythm. Pulses: Normal pulses. Heart sounds: Normal heart sounds. Pulmonary: Effort: Pulmonary effort is normal. Breath sounds: Normal breath sounds. Abdominal: General: Bowel sounds are normal. Palpations: Abdomen is soft. Tenderness: There is no abdominal tenderness. Hernia: No hernia is present. Musculoskeletal: Normal range of motion. Right lower leg: No edema. Left lower leg: No edema. Feet: Right Foot: Skin Integrity: Negative for ulcer or skin breakdown. Left Foot: Skin Integrity: Negative for ulcer or skin breakdown. Lymphadenopathy: Cervical: No cervical adenopathy. Skin: General: Skin is warm and dry. Nails: There is no clubbing. Neurological: General: No focal deficit present. Mental Status: She is alert and oriented to person, place, and time. GCS: GCS eye subscore is 4. GCS verbal subscore is 5. GCS motor subscore is 6. Cranial Nerves: Cranial nerves are intact. Sensory: Sensation is intact. Motor: Motor function is intact. Coordination: Coordination is intact. Gait: Gait is intact. Psychiatric: Attention and Perception: Attention and perception normal. Mood and Affect: Mood and affect normal. Speech: Speech normal. Behavior: Behavior normal. Behavior is cooperative. Thought Content: Thought content normal. Cognition and Memory: Cognition normal. Judgment: Judgment normal. Vitals: 03/01/20 1326 BP: 98/62 BP Location: Left arm Patient Position: Sitting Pulse: 92 Resp: 16 Temp: 37 ??C (98.6 ??F) TempSrc: Temporal SpO2: 99% Weight: 54 kg (119 lb) Height: 154.9 cm (5' 1 ) Assessment/Plan No signs of infection or other problems which would impair ability to work. Diagnoses and all orders for this visit: Encounter for physical examination related to employment (Primary) Disposition- Discussed medications dosages, usage & potential [...] in agreement with the plan of care Rin Noel NP documented in this encounter Plan of Treatment Not on file documented as of this encounter Visit Diagnoses Diagnosis Encounter for physical examination related to employment- Primary documented in this encounter Historical Medications * This list may reflect changes made after this encounter. clonazePAM (KlonoPIN) 0.5 mg tablet 0.5 mg 2 (two) times a day NEEDED 02/06/2020 2 naloxone (Narcan) 4 mg/actuation spray,non-aeroso l Call 911. Administer a single spray in one nostril. Repeat every 3 minutes as needed if no or minimal response. 04/19/2018 1 added in this encounter Additional Health Concerns Infection Onset Date Last Indicated Resolved Time Exposure, COVID-19 Comment:Added automatically based on COVID19 lab answers indicating exposure risk 02/20/2020 02/20/2020 03/06/2020 3:05 AM C DT documented as of this encounter Care Teams Can Sorter Relationship Specialty Start Date End Date Asia Wyman NP PCP - General Nurse Practitioner 09/30/17 03/04/20 documented as of this encounter
--- OUTSIDE RECORDS SUMMARY | 2024-06-25 09:58 | XMS_ITS | Encounter Summary ---
Author Organization [facility] Healthcare Address [address] [place] [address] Care Team Providers Care Paedodontist Name Role Phone Basiliosarah Fernando Yanezony Primary Care Provider [phone] Encounter Details Date Type Department Care Team (Late st Contact Info) Description 07/14/2013 6:03 AM INTERNATIONAL AFFAIRS VICE PRESIDENT - 07/14/2013 10:00 AM INTERNATIONAL AFFAIRS VICE PRESIDENT Hospital Encounter [facility] Kiet Cristobal MD [address] [place] [address] [address] Encounter for sterilization; Accidental laceration or bleeding during procedure NEC; Accidental laceration or bleeding during surgery; Place of occurrence, residential institution Social History Tobacco Use Types Packs/Day Years Used Date Smoking Tobacco: Never Assessed Comments Unknown Sex and Gender Information Value Date Recorded Sex Assigned at Not on file Legal Sex Female 1:17 AM INTERNATIONAL AFFAIRS VICE PRESIDENT Gender Identity Not on file Sexual Orientation Not on file documented as of this encounter Miscellaneous Notes * Op Note - Provider, MD Gena - 07/14/2013 12:00 AM CST OPERATIVE REPORT Patient: KRISTY ESTES Account: [id number] Room No: 175-12 : 1975 Patient Type: [facility] Attend.: Kiet Dickens M.D. Admit Date: 07/14/2013 Surg.: Kiet Dickens M.D. Disch. Date: 07/14/2013 DATE OF OPERATION: 07/14/2013 PREOPERATIVE DIAGNOSIS: Desires sterilization. POSTOPERATIVE DIAGNOSIS: Desires sterilization. PROCEDURE: Laparoscopic bilateral tubal ligation. ANESTHESIA: General. ESTIMATED BLOOD LOSS: Scant. COMPLICATIONS: Small umbilical skin laceration from trocar. OPERATIVE FINDINGS: Normal uterus, tubes and ovaries. DESCRIPTION OF PROCEDURE: Patient was taken to the operating room and after atraumatic induction of general anesthesia, she was prepped and draped in the usual sterile fashion in dorsal supine position. A semi-circular infraumbilical skin incision was made in an attempt to minimize any irregular scarring. Initial trocar placement was somewhat asymmetrical and resulted in a small skin laceration just superior to the planned insertion site. Once the trocar had been inserted into the peritoneal cavity, placement was confirmed via the laparoscope. The abdomen was then insufflated with carbon dioxide gas, taking care to keep the pressure below 15 mmHg. With gentle Trendelenburg positioning, excellent visualization of the low pelvic viscera was obtained. Both fallopian tubes were traced to their fimbriated end and an approximately 2 cm portion of mid tube was then cauterized with bipolar cautery taking care to keep it well away from other pelvic viscera. Instruments were removed from the abdomen. The abdomen was desufflated from the carbon dioxide gas. A single suture was used to reapproximate the fascia prior to all skin lacerations being closed with 4-0 Vicryl in subcuticular fashion. The patient tolerated the procedure well and taken to recovery room in good condition. Kiet Dickens M.D. GORDON/mariusz TD: 07/28/2013 09:15 Authenticated by Kiet Dickens MD On 07/31/2013 10:03:30 AM documented in this encounter Plan of Treatment Not on file documented as of this encounter Procedures Procedure Name Priority Date/Time Associated Diagnosis Comments URINE MICROSCOPY Routine 07/14/2013 6:08 AM INTERNATIONAL AFFAIRS VICE PRESIDENT URINALYSIS Routine 07/14/2013 6:08 AM INTERNATIONAL AFFAIRS VICE PRESIDENT SERUM CHORIONIC GONADOTROPIN (HCG) IDENTIFICATION Routine 07/14/2013 6:07 AM INTERNATIONAL AFFAIRS VICE PRESIDENT BLOOD WBC CELL MORPHOLOGIC EXAM, AUTO Routine 07/14/2013 6:07 AM INTERNATIONAL AFFAIRS VICE PRESIDENT BLOOD CELL COUNT (CBC) Routine 4 6:07 AM INTERNATIONAL AFFAIRS VICE PRESIDENT DISCHARGE LABORATORY CUMULATIVE REPORT Routine 07/14/2013 12:00 AM INTERNATIONAL AFFAIRS VICE PRESIDENT documented in this encounter Results * (ABNORMAL) Urinalysis (07/14/2013 6:08 AM INTERNATIONAL AFFAIRS VICE PRESIDENT) Color, ur DRKYEL HISTORICAL RESULTS Leukocyte esterase, ur Negative NEGATIVE HISTORICAL RESULTS Clarity, ur CLOUDY(A) CLEAR HISTORIC AL RESULTS Nitrites, ur Negative NEGATIVE HISTORI JOSE ELIAS RESULTS Specific gravity, ur >1.030 1.000 - 1.030 gu HISTORICAL RESULTS pH, ur 5.5 6.0 HISTORICAL RESULTS Protein, ur Trace NEGATIVE HISTORIC AL RESULTS Glucose, ur Negative NEGATIVE HISTORIC AL RESULTS Ketones, ur Negative NEGATIVE HISTORIC AL RESULTS Urobilinogen, quant, ur 0.2 0.2 - 1.0 mg/dl HISTORICAL RESULTS Bilirubin, ur Negative NEGATIVE HISTOR ICAL RESULTS U Blood Negative NEGATIVE HISTORICAL RESULTS Urine 07/14/2013 6:08 AM INTERNATIONAL AFFAIRS VICE PRESIDENT us Kiet Dickens MD LAB BLOOD ORDERABLES F inal Result HISTORICAL RESULTS * (ABNORMAL) Urine microscopy (07/14/2013 6:08 AM INTERNATIONAL AFFAIRS VICE PRESIDENT) WBC, ur 5 - 10(A) 0 - 2 /hpf HISTORICA L RESULTS RBC, ur 10 - 25(A) 0 - 5 /hpf HISTORIC AL RESULTS Epithelial cells, ur 25 - 50(A) 0 - 2 /hpf HISTORICAL RESULTS Bacteria, ur 2+(A) NEGATIVE /hpf HISTORICAL RESULTS Hyaline casts NOTSEEN 0 - 4 /lpf HISTO RICAL RESULTS Crystals, ur Negative NEGATIVE HISTORI JOSE ELIAS RESULTS Yeast, ur Negative NEGATIVE HISTORICAL RESULTS Additional result, ur HISTORICAL RESULTS Comment:3+ MUCOUS Pathological casts, ur Negative NEGATIVE HISTORICAL RESULTS Urine 07/14/2013 6:08 AM INTERNATIONAL AFFAIRS VICE PRESIDENT Kiet Dickens MD LAB BLOOD ORDERABLES F inal Result Performing Organization Address [facility] de Phone Number HISTORICAL RESULTS * Serum chorionic gonadotropin (HCG) identification (07/14/2013 6:07 AM INTERNATIONAL AFFAIRS VICE PRESIDENT) Pathologist [facility] HCG, qual Negative NEGATIVE HISTORICAL RESULTS Serum 07/14/2013 6:07 AM INTERNATIONAL AFFAIRS VICE PRESIDENT Kiet Dickens MD LAB BLOOD ORDERABLES F inal Result Performing Organization Address [facility] de Phone Number HISTORICAL RESULTS * (ABNORMAL) Blood cell count (CBC) (07/14/2013 6:07 AM INTERNATIONAL AFFAIRS VICE PRESIDENT) Pathologist [facility] WBC 7.0 4.0 - 10.5 K/cumm HISTORICAL RESULTS RBC 4.03(L) 4.20 - 5.40 M/cumm HISTORICAL RESULTS Hgb 12.9 12.0 - 16.0 g/dl HISTORICAL RESULTS Hct 38.8 37.0 - 47.0 % HISTORICAL RESULTS MCV 96.3 77.0 - 97.0 fl HISTORICAL RESULTS MCH 32.0 23.0 - 34.0 pg HISTORICAL RESULTS MCHC 33.2 32.0 - 36.0 g/dl HISTORICAL RESULTS Rdw 12.9 11.5 - 14.5 % HISTORICAL RESULTS Platelets 262 150 - 451 K/cumm HISTORICAL RESULTS MPV 10.4 7.4 - 10.4 fl HISTORICAL RESULTS Blood specimen (specimen) 07/14/2013 6:07 AM INTERNATIONAL AFFAIRS VICE PRESIDENT Kiet Dickens MD LAB BLOOD ORDERABLES F inal Result Performing Organization Address [facility] Co de Phone Number HISTORICAL RESULTS * (ABNORMAL) Blood WBC cell morphologic exam, auto (07/14/2013 6:07 AM INTERNATIONAL AFFAIRS VICE PRESIDENT) Pathologist [facility] Lymphocytes 29.3 25.0 - 33.0 % HISTORICAL RESULTS Monos 4.7 1.0 - 13.0 % HISTORICAL RESULTS Neutrophils 62.2 54.0 - 69.0 % HISTORICAL RESULTS Eosinophils 3.0 0.0 - 10.0 % HISTORICAL RESULTS Basophils 0.7 0.0 - 1.0 % HISTORICAL RESULTS Immature granulocytes 0.1 0.0 - 1.0 % HISTORICAL RESULTS Lymphocytes, abs 2.1 1.2 - 3.4 K/cumm HISTORICAL RESULTS Monocytes, absolute 0.3(L) 1.1 - 1.9 K/cumm HISTORICAL RESULTS Neutrophils, abs 4.4 1.4 - 6.5 K/cumm HISTORICAL RESULTS Eosinophils, abs 0.2 0.0 - 0.7 cells/cumm HISTORICAL RESULTS Basophils, abs 0.1 0.0 - 0.2 K/cumm HISTORICAL RESULTS Immature granulocyte, abs 0.0 0.0 - 0.0 K/cumm HISTORICAL RESULTS Blood specimen (specimen) 07/14/2013 6:07 AM INTERNATIONAL AFFAIRS VICE PRESIDENT us Kiet Dickens MD LAB BLOOD ORDERABLES F inal Result HISTORICAL RESULTS * Discharge Laboratory Cumulative Report (07/14/2013 12:00 AM INTERNATIONAL AFFAIRS VICE PRESIDENT) 07/14/2013 Narrative HISTORICAL RESULTS - 07/15/2013 2:49 AM INTERNATIONAL AFFAIRS VICE PRESIDENT Patient No: [id number] ? [facility] Patient Name: KRISTY ESTES ? [facility] Healthcare Age: 37 YRS ?: 1975 ?Sex:F ?[address] )[id number] ?? Adm Dt: 07/14/2013 ?[place] ??[address] Created: 07/15/2013 ??0249 ?? Pt. Type: O ? Discharge Dt: 07/14/2013 ? Pathologists: Kristy Atwood MD Admit Dr. Sagastume Dr: KIET DICKENS MD ? BLOOD CELL COUNTS ?Collection Date: ?07/14/13 ?Collection Time: ?606 ? Ref Range: ?? Units: [4.00-10.50] /CMM ? WBC X 10^3 ?7.04 [4.20-5.40] ??/CMM ? RBC X 10^6 ?4.03 L [12.0-16.0] ??G/DL ? HGB ? 12.9 [37.0-47.0] ??% ?HCT ? 38.8 [77.0-97.0] ??FL ? MCV ? 96.3 [23.0-34.0] ??PG ? MCH ? 32.0 [32.0-36.0] ??% ?MCHC ?33.2 [11.5-14.5] ??% ?RDW ? 12.9 [150-451] ?? /CMM ? PLT X 10^3 ? 262 ?BLOOD CELL DIFFERENTIAL ?Collection Date: ?07/14/13 ?Collection Time: ?0607 ? Ref Range: ?? Units: [54.0-69.0] ??% ?NEUTROPHILS ? 62.2 [25.0-33.0] ??% ?LYMPHOCYTES ? 29.3 [1.0-13.0] ??% ?MONOCYTES ?4.7 [0.0-10.0] ??% ?EOSINOPHILS ?3.0 [0.0-1.0] ?? % ?BASOPHILS ?0.7 ? /CMM ? A LYMPHOCYTE ? 2.1 [0.0-1.0] ?? % ?IMM GRAN % ? 0.1 [0.00-0.02] ??/CMM ? A IMM GRAN ?0.01 [1.1-1.9] ?? /CMM ? A MONOCYTE ? 0.3 L [1.4-6.5] ?? /CMM ? A NEUTROPHIL ? 4.4 [0.0-0.7] ?? /CMM ? A EOSINOPHIL ? 0.2 [0.0-0.2] ?? /CMM ? A BASOPHIL ? 0.1 Footnotes and Symbols: L = Low ?? CONTINUED ?Page: ?? 1 Patient No: [id number] ? [facility] Patient Name: KRISTY ESTES ? [facility] Healthcare Age: 37 YRS ?: 1975 ?Sex:F ?[address] )[phone] ?? Adm Dt: 07/14/2013 ?[place], [place] ??[address] Created: 07/15/2013 ??0249 ?? Pt. Type: O ? Discharge Dt: 07/14/2013 ? Pathologists: Kristy Atwood MD Admit Attend Dr: KIET DICKENS MD ? [facility] ?Collection Date: ?07/14/13 ?Collection Time: ?0607 ? Ref Range: ?? Units: [NEGATIVE] ?HCG QUALITATIVE ? NEGATIVE ?URINALYSIS ?Collection Date: ?07/14/13 ?Collection Time: ?0608 ? Ref Range: ?? Units: ?U COLOR ? DRKYEL ??[CLEAR] ? U APPEARANCE ?CLOUDY * [1.000-1.030] ? U SPEC GRAVITY ?>1.030 [NEGATIVE] ?U LEUKO ESTRASE ? NEGATIVE [NEGATIVE] ?U NITRITE ? NEGATIVE ?? [6.0] ?U PH ? 5.5 [NEGATIVE] ?U PROTEIN ?TRACE [NEGATIVE] ?U GLUCOSE ? NEGATIVE [NEGATIVE] ?U KETONES ? NEGATIVE [0.2- 1.0] ?UROBILINOGEN ? 0.2 [NEGATIVE] ?U BILIRUBIN ? NEGATIVE [NEGATIVE] ?U BLOOD ? NEGATIVE ?? [0-2] ?U WBC ? 5-10 * ?? [0-5] ?U RBC ?10-25 * ?? [0-2] ?U EPI CELLS ?25-50 * [NEGATIVE] ?U BACTERIA ?2+ * ?U YEASTS ?NEGATIVE ?? [0-4] ?U HYALINE CASTS ? NOT SEEN [NEGATIVE] ?U CRYSTALS ?NEGATIVE ?U OTHER ?* [NEGATIVE] ?U PATH CASTS ?NEGATIVE Footnotes and Symbols: * = Abnormal ?? END OF CHART ? Page: ?? 2 us Historical Provider LAB BLOOD ORDERABLES Shama l Result HISTORICAL RESULTS documented in this encounter Visit Diagnoses Diagnosis Encounter for sterilization Sterilization Accidental laceration or bleeding during procedure NEC Accidental laceration or bleeding during surgery Accidental cut, puncture, perforation, or hemorrhage during surgical operation Place of occurrence, residential institution documented in this encounter Care Teams Paedodontist Relationship Specialty Start Date End Date Fernando Bryant DO [address] [address] PCP - General 04/30/11 03/31/17 documented as of this encounter
--- OUTSIDE RECORDS SUMMARY | 2024-06-25 09:58 | XMS_ITS | Encounter Summary ---
Author Organization [facility] Healthcare Address [address] [place] [address] Care Team Providers Care Biomedical Instrument Technician Name Role Phone No, Physician Primary Care Provider [phone] Encounter Details Date Type Department Care Team (Late st Contact Info) Description 03/19/2020 Telephone [facility] Healthcare Occupatiuonal Health [address] [facility] [address] (Third Floor) [place] [address] Jazmyn Parker NP [address] [place] [address] [place] [address] Social History Tobacco Use Types Packs/Day Years Used Date Smoking Tobacco: Former Alcohol Use Standard Drinks/Week Comments No 0 (1 standard drink = 0.6 oz pur e alcohol) Comments No Sex and Gender Information Value Date Recorded Sex Assigned at Not on file Legal Sex Female 1:17 AM BROOMMAKER Gender Identity Not on file Sexual Orientation Not on file documented as of this encounter Miscellaneous Notes * Telephone Encounter - Jazmyn Parker NP - 03/19/2020 1:34 PM CDT COVID19 test order placed. Asymptomatic. Public health required testing due to exposure. documented in this encounter Plan of Treatment Not on file documented as of this encounter Visit Diagnoses Diagnosis Close exposure to COVID-19 virus- Primary documented in this encounter Additional Health Concerns Infection Onset Date Last Indicated Resolved Time Exposure, COVID-19 Comment:Added automatically based on COVID19 lab answers indicating exposure risk 03/11/2020 03/11/2020 03/26/2020 3:05 AM C DT Exposure, COVID-19 Comment:Added automatically based on COVID19 lab answers indicating exposure risk 03/26/2020 03/26/2020 04/10/2020 3:06 AM C DT documented as of this encounter Care Teams Biomedical Instrument Technician Relationship Specialty Start Date End Date No, Physician PCP - General 03/05/20 04/03/20 documented as of this encounter
--- OUTSIDE RECORDS SUMMARY | 2024-06-25 09:58 | XMS_ITS | Encounter Summary ---
Author Organization [facility] Healthcare Address [address] [place] [address] Care Team Providers Care Apprentice Pattern Maker Name Role Phone Unknown, Notinfile Primary Care Provider Unavail able Encounter Details Date Type Department Care Team ([facility] st Contact Info) Description 04/01/2017 11:51 AM CDT - 04/01/2017 3:09 PM CDT Emergency [facility] Emergency Department [address] [place] [address] Dayanna Uriarte Discharge Disposition: Discharge to home or self care Social History Tobacco Use Types Packs/Day Years Used Date Smoking Tobacco: Never Assessed Comments Unknown Sex and Gender Information Value Date Recorded Sex Assigned at Not on file Legal Sex Female 1:17 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 Gender Identity Not on file Sexual Orientation Not on file documented as of this encounter Medications at Time of Discharge amoxicillin-clavu lanate (AUGMENTIN) 875-125 mg per tablet take 1 tablet by oral route every 12 hours 14 0 01/03/2016 05/21/2020 buPROPion SR (WELLBUTRIN SR) 150 mg 12 hr tablet take 1 tablet by oral route every day 0 0 01/03/2016 05/21/2020 busPIRone (BUSPAR) 30 mg tablet take 1 tablet by oral route 2 times every day 0 0 01/03/2016 05/21/2020 spironolactone (ALDACTONE) 100 mg tablet take 1 tablet by oral route every day 0 0 01/03/2016 05/21/2020 documented as of this encounter Discharge Disposition Disposition Code Departure Means Destination Discharge to home or self care documented in this encounter Plan of Treatment Not on file documented as of this encounter Procedures Procedure Name Priority Date/Time Associated Diagnosis Comments XR CHEST PA LATERAL 2 VIEWS Routine 04/01/2017 5:49 PM CDT HCG, URINE, QUALITATIVE STAT 04/01/20 17 1:23 PM CDT EGFR STAT 04/01/2017 12:50 PM CDT DIFFERENTIAL AUTO STAT 04/01/2017 12: 50 PM CDT PRO B-TYPE NATRIURETIC PEPTIDE STAT 04/01/2017 12:50 PM CDT CBC WITH AUTO DIFFERENTIAL STAT 04/01 12:50 PM CDT D-DIMER, QUANTITATIVE STAT 04/01/2017 12:50 PM CDT TROPONIN T STAT 04/01/2017 12:50 PM CDT COMPREHENSIVE METABOLIC PANEL STAT 04/01/2017 12:50 PM CDT ELECTROCARDIOGRAPHY (ECG) 04/01/2017 DISCHARGE LABORATORY CUMULATIVE REPORT 04/01/2017 12:00 AM CDT documented in this encounter Results * XR Chest Pa Lateral 2 Views (04/01/2017 5:49 PM CDT) Anatomical Region Laterality Modality Body, Chest N/A Radiographic Ale ging 04/01/2017 5:49 PM CDT Narrative 04/01/2017 5:49 PM CDT XR Chest 2 Views ?[id number] ??Acc#: ??[id number] DATE OF EXAM: ??Mar ??2016 ?? XR Chest 2 Views ?[id number] HISTORY: Chest Pain. COMPARISON: None available. FINDINGS: Heart size is normal. ??Lungs are clear. IMPRESSION: NO ACTIVE DISEASE. Electronically signed by: Xiang Carver M.D. Interpreting Physician: ??XIANG CARVER M.D. ??Read on: ??Mar ??2016 ??1:39P Transcribed by: ??PSC ??On: Mar?2016 ??1:37P Approved Electronically by: ??XIANG CARVER M.D. ??on: ??Mar ??2016 ??1:37P Ordering DR: DAYANNA URIARTE Attending DR: DAYANNA URIARTE Attending: ??DAYANNA URIARTE Requesting: ??DAYANNA URIARTE Requesting Fax: ??-- Attending Fax: ??-- Attending ID: ??[id number] Requesting ID: ??[id number] Report To 1 ID: ??[id number] Report To 1 Name: ??DAYANNA URIARTE Report To 1 FAX: ??-- NextGen Order #: ?? Procedure Note Miscellaneous, Not In File / Provider, MD Gena - 04/01/2017 XR Chest 2 Views [id number] Acc#: [id number] DATE OF EXAM: Apr 01 2017 XR Chest 2 Views [id number] HISTORY: Chest Pain. COMPARISON: None available. FINDINGS: Heart size is normal. Lungs are clear. IMPRESSION: NO ACTIVE DISEASE. Electronically signed by: Xiang Carver M.D. Interpreting Physician: XIANG CARVER M.D. Read on: Apr 01 2017 1:39P Transcribed by: [facility] On: Apr 01 2017 1:37P Approved Electronically by: XIANG CARVER M.D. on: Apr 01 2017 1:37P Ordering DR: DAYANNA URIARTE Attending DR: DAYANNA URIARTE Attending: DAYANNA URIARTE Requesting: DAYANNA URIARTE Requesting Fax: -- Attending Fax: -- Attending ID: [id number] Requesting ID: [id number] Report To 1 ID: [id number] Report To 1 Name: DAYANNA URIARTE Report To 1 FAX: -- NextGen Order #: us Not In File Miscellaneous IMG XR PROCEDURES Shama l Result * HCG, urine, qualitative (04/01/2017 1:23 PM CDT) HCG, ur Negative Negative [facility] ([place]) Urine 04/01/2017 1:23 PM CDT 04/01/2017 1:28 PM CDT [employer] LAB URINE ORDERABLES Final Resul t Performing Organization Address [facility] Co de Phone Number JANIE LOYOLA ([place]) 1 [facility] [employer] [address] * (ABNORMAL) D-dimer, quantitative (04/01/2017 12:50 PM CDT) D-dimer <150(L) 150 - 230 ng/mL D-DU [facility]IE [facility] ([place]) Comment: Interpretive Data This D-dimer test is approved by the FDA to exclude suspected PE and DVT in outpatients when the result is <230 ng/mL in conjunction with a pre-test probability score of low or moderate using the Wells criteria. Current Interpretive Data was last revised on 2015. Blood specimen (specimen) 04/01/2017 12:50 PM CDT 04/01/2017 12:57 PM CDT [employer] LAB BLOOD ORDERABLES Final Resul t Performing Organization Address [facility] Co de Phone Number JANIE LOYOLA ([place]) 1 [facility] [place] [address] * Pro B-type natriuretic peptide (04/01/2017 12:50 PM CDT) NT-proBNP 16 10 - 150 pg/mL [facility]MER MILL[facility] ([place]) Comment: Diagnosis of Congestive Heart Failure: ??Heart Failure Unlikely: All Ages ?Less than 300 pg/ml ??Heart Failure Possible: Less than 50Y ?? 300-450 pg/ml ?50-75 Y ? 300-900 pg/ml ?75-160Y ? 300-1800 pg/ml ?Heart Failure Likely: ?? Less than 50Y ?? Greater than 450 pg/ml ?50-75 Y ? Greater than 900 pg/ml ?75-160 Y ?Greater than 1,800 pg/ml ??Renal Failure: ?All Ages ?Greater than 1,200 pg/ml Current interpretive data was last revised on 2014. Blood specimen (specimen) 04/01/2017 12:50 PM CDT 04/01/2017 12:57 PM CDT us Dayanna Uriarte LAB BLOOD ORDERABLES Final Resul t JANIE LOYOL[facility] ([place]) 1 [facility] Department [place] [address] * eGFR (04/01/2017 12:50 PM CDT) eGFR >60 mL/min/1.7 3 m2 [facility]ANIE LOYOL[facility] ([place]) Comment: Interpretive Data Reference Interval Normal ?>/= 90 mL/min/1.73m2 Mildly decreased* ? 60 - 89 mL/min/1.73m2 Mildly to moderately decreased ?45 - 59 mL/min/1.73m2 Moderately to severely decreased ??30 - 44 mL/min/1.73m2 Severely decreased ?15 - 29 mL/min/1.73m2 Kidney Failure ?< 15 ??mL/min/1.73m2 *Relative to young adult level If -Slovak multiply value by 1.16. Estimated glomerular filtration [...] was last reviewed 2016. Blood specimen (specimen) 04/01/2017 12:50 PM CDT 04/01/2017 12:57 PM CDT us Dayanna Uriarte LAB BLOOD ORDERABLES Final Resul t [facility] ([place]) 1 [facility] Department [place] [address] * Comprehensive metabolic panel (04/01/2017 12:50 PM CDT) Sodium 140 135 - 145 mmol/L [facility] ([place]) Potassium 4.0 3.5 - 5.1 mmol/L [facility] ([place]) Chloride 100 97 - 110 mmol/L [facility] ([place]) CO2 26 22 - 32 mmol/L [facility] ([place]) Anion gap 14 8 - 16 mmol/L [facility] ([place]) Glucose 98 70 - 199 mg/dL [facility] ([place]) Comment: Interpretive Data Note:The glucose is assumed non fasting Fastin-99 mg/dL Random: ??70-199 mg/dL Either a fasting glucose > 126 mg/dL or a random glucose > 200 mg/dL plus symptoms is diagnostic of diabetes when confirmed on another day. Fasting values > 100 mg/dL but < 125 mg/dL are diagnostic of impaired fasting glucose. Current interpretive data was last revised on 2014. BUN 12.0 8.0 - 25.0 mg/dL [facility] ([place]) Creatinine 0.94 0.60 - 1.10 mg/dL [facility] ([place]) BUN/creat ratio 13 10 - 20 [facility] ([place]) Calcium 9.6 8.6 - 10.2 mg/dL [facility] ([place]) Protein, sr 7.9 6.0 - 8.4 g/dL [facility] ([place]) Albumin 4.4 3.6 - 5.0 g/dL [facility] ([place]) Alk phos 78 40 - 130 Units/L [facility] ([place]) ALT 21 5 - 45 Units/L [facility] ([place]) AST 23 10 - 40 Units/L [facility] ([place]) Bilirubin, total 0.3 <=1.2 mg/dL [facility] ([place]) Blood specimen (specimen) 04/01/2017 12:50 PM CDT 04/01/2017 12:57 PM CDT [facility] LAB BLOOD ORDERABLES Final Resul t Performing Organization Address City/[facility] de Phone Number JANIE LOYOLA ([place]) 1 [facility] [place] [address] * Troponin T (04/01/2017 12:50 PM CDT) Troponin T <0.01 0.00 - 0.06 ng/mL JANIE LOYOLA ([place]) Comment: Interpretive Data Troponin table: ? Negative ? 0.00-0.06 ng/ml ? Indeterminate ?0.07-0.10 ng/ml ? Consistent with Myocardial Injury ?Greater than 0.10 ng/ml ?? Current interpretive data was last revised on 2014 Blood specimen (specimen) 04/01/2017 12:50 PM CDT 04/01/2017 12:57 PM CDT [facility]ozio [employer] LAB BLOOD ORDERABLES Final Resul t Performing Organization Address City/[facility] de Phone Number JANIE LOYOLA ([place]) 1 [facility] [place] [address] * Differential, auto (04/01/2017 12:50 PM CDT) Neutrophil pct 61.7 44.0 - 80.0 % [facility] ([place]) Imm gran pct 0.2 0.0 - 1.0 % [facility] ([place]) Lymphocyte pct 30.6 13.0 - 44.0 % [facility] ([place]) Monocyte pct 4.3 2.0 - 11.0 % [facility] ([place]) Eosinophil pct 2.5 0.0 - 6.0 % [facility] ([place]) Basophil pct 0.7 0.0 - 3.0 % [facility] ([place]) Neutrophil abs 4.96 1.60 - 7.00 K/cumm [facility] ([place]) Imm gran abs 0.02 0.00 - 0.20 K/cumm [facility] ([place]) Lymphocyte abs 2.46 0.50 - 4.30 K/cumm [facility] ([place]) Monocyte abs 0.35 0.10 - 1.00 K/cumm [facility] ([place]) Eosinophil abs 0.20 0.00 - 0.60 K/cumm [facility] ([place]) Basophil abs 0.06 0.00 - 0.30 K/cumm [facility] ([place]) Blood specimen (specimen) 04/01/2017 12:50 PM CDT 04/01/2017 12:57 PM CDT Dayanna Uriarte LAB BLOOD ORDERABLES Final Resul t [facility] 1 [facility] Department [place] [address] * (ABNORMAL) CBC with auto differential (04/01/2017 12:50 PM CDT) WBC 8.05 3.80 - 9.80 K/cumm [facility] ([place]) RBC 4.10 3.90 - 5.00 M/cumm [facility] ([place]) Hgb 13.6 12.1 - 15.1 g/dL [facility] ([place]) Hct 37.9 36.1 - 44.3 % [facility] ([place]) MCV 92.4 80.0 - 100.0 fL [facility] ([place]) MCH 33.2 26.7 - 33.7 pg [facility] ([place]) MCHC 35.9 32.7 - 36.0 g/dL [facility] ([place]) RDW CV 11.4(L) 11.5 - 14.6 % [facility] ([place]) Plt 280 140 - 440 K/cumm [facility] ([place]) MPV 10.1 8.0 - 12.0 fL [facility] ([place]) NRBC 0.0 0.0 - 0.0 % [facility] ([place]) NRBC abs 0.00 0.00 - 0.00 K/cumm [facility] ([place] Blood specimen (specimen) 04/01/2017 12:50 PM CDT 04/01/2017 12:57 PM CDT Dayanna Uriarte LAB BLOOD ORDERABLES Final Resul t [facility] ([place]) 1 [facility] Department [place] [address] * DISCHARGE LABORATORY CUMULATIVE REPORT (04/01/2017 12:00 AM CDT) Narrative 04/01/2017 12:00 AM CDT Ordered by an unspecified provider. Historical Provider LAB BLOOD ORDERABLES Shama l Result * ELECTROCARDIOGRAPHY (ECG) (04/01/2017) us Provider Scanning ECG ORDERABLES Final Result documented in this encounter Visit Diagnoses Not on filedocumented in this encounter Care Teams Apprentice Pattern Maker Relationship Specialty Start Date End Date Unknown, Notinfile PCP - General 04/01/17 09/29/17 documented as of this encounter
--- OUTSIDE RECORDS SUMMARY | 2024-06-25 09:58 | XMS_ITS | Encounter Summary ---
Author Organization [facility] Healthcare Address [address] [place] [address] Care Team Providers Care Process Worker Name Role Phone Annette Fernando Yanezony Primary Care Provider [phone] Encounter Details Date Type Department Care Team (Late st Contact Info) Description 11/27/2012 11:55 AM CDT - 11/27/2012 1:37 PM CDT Hospital Encounter [facility] Kiet Cristobal MD [address] [place] [address] [address] LOCKE [address] [address] Other complication of , antepartum Social History Tobacco Use Types Packs/Day Years Used Date Smoking Tobacco: Never Assessed Comments Unknown Sex and Gender Information Value Date Recorded Sex Assigned at Not on file 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 Gender Identity Not on file Sexual Orientation Not on file documented as of this encounter Last Filed Vital Signs Vital Sign Reading Time Taken Comments Blood Pressure - - Pulse - - Temperature - - Respiratory Rate - - Oxygen Saturation - - Inhaled Oxygen Concentration - - Weight 73 kg (161 lb) 11/27/2012 12:08 PM CDT Height 154.9 cm (5' 0.98 ) 11/27/2012 12:08 PM C DT Body Mass Index 30.44 11/27/2012 12:08 PM CDT documented in this encounter H&P Notes * Gena Cruz MD - 11/27/2012 12:00 AM CDT Datetime Report Generated by N: 11/27/2012 13:39 Patient Name: KRISTY ESTES : 1975 Datetime Report Generated by [facility]: 11/27/2012 13:39 Inital Evaluation Arrival Date/Time: 11/27/2012 12:17 (11/27/2012 12:48/Gayla Sandoval RN) Arrival Comments: I think my water broke (11/27/2012 12:48/Gayla Sandoval RN) Method of arrival: Ambulatory (11/27/2012 12:48/Gayla Sandoval RN) Arrived From: Home (11/27/2012 12:48/Gayla Sanodval RN) Movement: Present (11/27/2012 12:48/Gayla Sandoval RN) Contractions: Denies/Absent (11/27/2012 12:48/Gayla Sandoval, RN) Rupture of membrane: Unsure (11/27/2012 12:48/Gayla Sandoval, RN) Vaginal Bleeding : None (11/27/2012 12:48/Gayla Sandoval RN) Vaginal discharge: Denies (11/27/2012 12:48/Gayla Sandoval RN) Abdominal Trauma: Not Applicable (11/27/2012 12:48/Gayla Sandoval RN) Time Provider Notified: 11/27/2012 12:17 (11/27/2012 12:48/Gayla Sandoval RN) Provider: Demarco (11/27/2012 12:48/Gayla Sandoval, RN) Inital Plan: clean void urine, nitrazine, fern by Dr. Dickens, SVE, EFM et toco, VS checks; notify with update/for orders. (11/27/2012 12:48/Gayla Sandoval, RN) documented in this encounter Plan of Treatment Not on file documented as of this encounter Procedures Procedure Name Priority Date/Time Associated Diagnosis Comments DISCHARGE CUMULATIVE SUMMARY ADDENDUM Routine 11/30/2012 12:25 AM CDT URINE MICROSCOPY Routine 11/27/2012 12:1 7 PM CDT URINALYSIS Routine 11/27/2012 12:17 PM CDT MICROBIOLOGY SUMMARY Routine 11/27/2012 12:00 AM CDT DISCHARGE LABORATORY CUMULATIVE REPORT Routine 11/27/2012 12:00 AM CDT documented in this encounter Results * Discharge Cumulative Summary Addendum (11/30/2012 12:25 AM CDT) 11/30/2012 12:2 5 AM CDT Narrative HISTORICAL RESULTS - 11/30/2012 12:25 AM CDT Patient No: [id number] ? [facility] Patient Name: KRISTY ESTES ? [facility] Healthcare Age: 37 YRS ?: 1975 ?Sex:F ?[address] ?? Adm Dt: 11/27/2012 ?[place], [place] ??[address] Created: 11/30/2012 ??0025 ?? Pt. Type: U ? Discharge Dt: 11/27/2012 ? Pathologists: Kristy Atwood MD Admit Dr. Sagastume Dr: KIET DICKENS MD ? MICRO - URINE URINE CULTURE ? Collected: 11/27/12 1217 ? Received: 11/27/12 1309 Source: CLEAN CATCH URINE ? Started: 11/27/12 1313 ?URINE ? PRELIMINARY REPORT ?11/28/12645 ? NO GROWTH ? FINAL REPORT ?11/29/12626 ? LESS THAN 10,000 CFU/ml MULTIPLE GRAM POSITIVE ORGANISMS ? (SENSITIVITIES NOT PERFORMED) ?? END OF CHART ? Page: ?? 1 us Historical Provider MD LAB MICROBIOLOGY - GENERA L ORDERABLES Final Result HISTORICAL RESULTS * (ABNORMAL) Urinalysis (11/27/2012 12:17 PM CDT) Color, ur YELLOW YELLOW HISTORICAL RESULTS Clarity, ur CLEAR CLEAR HISTORIC AL RESULTS Specific gravity, ur 1.013 1.000 - 1.030 gu HISTORICAL RESULTS Leukocyte esterase, ur SMALL(A) NEGATIVE HISTORICAL RESULTS Nitrites, ur Negative NEGATIVE HISTORI JOSE ELIAS RESULTS pH, ur 7.0 6.0 HISTORICAL RESULTS Protein, ur Negative NEGATIVE HISTORIC AL RESULTS Glucose, ur Negative NEGATIVE HISTORIC AL RESULTS Ketones, ur Negative NEGATIVE HISTORIC AL RESULTS Urobilinogen, quant, ur 0.2 0.2 - 1.0 mg/dl HISTORICAL RESULTS Bilirubin, ur Negative NEGATIVE HISTOR ICAL RESULTS U Blood Negative NEGATIVE HISTORICAL RESULTS Urine 11/27/2012 12:1 7 PM CDT Kiet Dickens MD LAB BLOOD ORDERABLES F inal Result Performing Organization Address [facility] Co de Phone Number HISTORICAL RESULTS * Urine microscopy (11/27/2012 12:17 PM CDT) WBC, ur 2 - 5 0 - 2 /hpf HISTORICA L RESULTS RBC, ur 0 - 2 0 - 5 /hpf HISTORICA L RESULTS Epithelial cells, ur 5 - 10 0 - 2 /hpf HISTORICAL RESULTS Bacteria, ur 1+ NEGATIVE /hpf HISTORICAL RESULTS Hyaline casts 0 - 2 0 - 4 /lpf HISTO RICAL RESULTS Crystals, ur Negative NEGATIVE HISTORI JOSE ELIAS RESULTS Yeast, ur Negative NEGATIVE HISTORICAL RESULTS Pathological casts, ur Negative NOTSEEN HISTORICAL RESULTS Urine 11/27/2012 12:1 7 PM CDT Kiet Dickens MD LAB BLOOD ORDERABLES F inal Result Performing Organization Address [facility] de Phone Number HISTORICAL RESULTS * Microbiology Summary (11/27/2012 12:00 AM CDT) 11/27/2012 Narrative HISTORICAL RESULTS - 11/30/2012 12:33 AM CDT ? [facility] ? MICROBIOLOGY REPORT PATIENT NAME: ??KRISTY ESTES ? MED RECORD#: ??[id number] BIRTHDATE: ??1975 ?? AGE: ??37 YRS SEX: F ?PATIENT#: ? [id number] ADMITTING DR: ??KIET DICKENS MD ? ATTENDING DR: ??KIET DICKENS MD ?ACCESSION#: ?? [id number] CREATED: ??11/30/12 ?? 0024 ? ADMIT DATE: ?? 11/27/12 ? MICRO - URINE URINE CULTURE ? Collected: 11/27/12 1217 ? Received: 11/27/12 1309 Source: CLEAN CATCH URINE ? Started: 11/27/12 1313 ?URINE ?11/28/1246 ? NO GROWTH ?11/29/12626 ? LESS THAN 10,000 CFU/ml MULTIPLE GRAM POSITIVE ORGANISMS ? (SENSITIVITIES NOT PERFORMED) ?? END OF CHART us Historical Provider LAB MICROBIOLOGY - GENERA L ORDERABLES Final Result HISTORICAL RESULTS * Discharge Laboratory Cumulative Report (11/27/2012 12:00 AM CDT) 11/27/2012 Narrative HISTORICAL RESULTS - 11/28/2012 12:22 AM CDT Patient No: [id number] ? [facility] Patient Name: KRISTY ESTES ? C Healthcare Age: 37 YRS ?: 1975 ?Sex:F ?[address] )[id number] ?? Adm Dt: 11/27/2012 ?[place], [place] ??[address] Created: 11/28/2012 ??0022 ?? Pt. Type: U ? Discharge Dt: 11/27/2012 ? Pathologists: Kristy Atwood MD Admit DrGabby Attend Dr: DICKENS, KIET L MD ?URINALYSIS ?Collection Date: ?11/27/12 ?Collection Time: ?1217 ? Ref Range: ?? Units: [YELLOW] ? U COLOR ? YELLOW ??[CLEAR] ? U APPEARANCE ? CLEAR [1.000-1.030] ? U SPEC GRAVITY ? 1.013 [NEGATIVE] ?U LEUKO ESTRASE ?SMALL * [NEGATIVE] ?U NITRITE ? NEGATIVE ?? [6.0] ?U PH ? 7.0 [NEGATIVE] ?U PROTEIN ? NEGATIVE [NEGATIVE] ?U GLUCOSE ? NEGATIVE [NEGATIVE] ?U KETONES ? NEGATIVE [0.2- 1.0] ?UROBILINOGEN ? 0.2 [NEGATIVE] ?U BILIRUBIN ? NEGATIVE [NEGATIVE] ?U BLOOD ? NEGATIVE ?? [0-2] ?U WBC ?2-5 ?? [0-5] ?U RBC ?0-2 ?? [0-2] ?U EPI CELLS ? 5-10 [NEGATIVE] ?U BACTERIA ?1+ ?U YEASTS ?NEGATIVE ?? [0-4] ?U HYALINE CASTS ?0-2 [NEGATIVE] ?U CRYSTALS ?NEGATIVE [NOT SEEN] ?U PATH CASTS ?NEGATIVE Footnotes and Symbols: * = Abnormal ?? END OF CHART ? Page: ?? 1 us Historical Provider LAB BLOOD ORDERABLES Shama l Result Performing Organization Address City/State/[facility] Co de Phone Number HISTORICAL RESULTS documented in this encounter Visit Diagnoses Diagnosis Other complication of , antepartum documented in this encounter Care Teams Process Worker Relationship Specialty Start Date End Date Fernando Bryant DO [address] [place] [address] PCP - General 04/30/11 03/31/17 documented as of this encounter
--- OUTSIDE RECORDS SUMMARY | 2024-06-25 09:58 | XMS_ITS | Encounter Summary ---
Author Organization [facility] Healthcare Address [address] [place] [address] Care Team Providers Care Sales Property Manager Name Role Phone Asia Wyman NP Primary Care Provider Mark gee Encounter Details Date Type Department Care Team (Latest Contact Info) Description 10/01/2017 2:27 PM CDT - 10/01/2017 11:59 PM CDT Hospital Encounter [facility] Discharge Disposition: Discharge to home or self care Social History Tobacco Use Types Packs/Day Years Used Date Smoking Tobacco: Never Assessed Alcohol Use Standard Drinks/Week Comments No 0 (1 standard drink = 0.6 oz pur e alcohol) Comments Unknown Sex and Gender Information Value Date Recorded Sex Assigned at Not on file 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
--- OUTSIDE RECORDS SUMMARY | 2024-06-25 09:58 | XMS_ITS | Encounter Summary ---
Author Organization [facility] Healthcare Address [address] [place] [address] Care Team Providers Care Tier In Name Role Phone Asia Wyman NP Primary Care Provider Mark gee Encounter Details Date Type Department Care Team (Late st Contact Info) Description 02/20/2020 Telephone [facility] Healthcare Occupatiuonal Health [address] [employer] Room 34[address] (Third Floor) [place] [address] Radha Reynolds NP [address] [place] [address] Social History Tobacco Use Types Packs/Day Years Used Date Smoking Tobacco: Former Alcohol Use Standard Drinks/Week Comments No 0 (1 standard drink = 0.6 oz pur e alcohol) Comments No Sex and Gender Information Value Date Recorded Sex Assigned at Not on file 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 Asymptomatic. [...] documented as of this encounter Care Teams Tier In Relationship Specialty Start Date End Date Asia Wyman, MANAGEMENT PLANNER PCP - General Nurse Practitioner 09/30/17 03/04/20 documented as of this encounter
--- OUTSIDE RECORDS SUMMARY | 2024-06-25 09:58 | XMS_ITS | Encounter Summary ---
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 The 2018-Novel Coronavirus [...] Data was last revised on 2019. Nasopharyngeal 11/04/2019 10 :04 AM CDT 11/04/2019 9:59 PM CDT us Wendi Reich MD LAB MICROBIOLOGY - GENERAL ORDERABLES Final Result Performing Organization Address City/State/ZIP Co id Phone Number [facility] Department [place] [address] documented in this encounter Visit Diagnoses Not on filedocumented in this encounter Care Teams Day Trader Relationship Specialty Start Date End Date Wyman, Asia Harp NP PCP - General Nurse Practitioner 09/30/17 03/04/20 documented as of this encounter
--- OUTSIDE RECORDS SUMMARY | 2024-06-25 09:58 | XMS_ITS | Encounter Summary ---
Author Organization [facility] Facility Care Team Providers Care Emt Basic Name Role Phone Asia Wyman NP Primary Care Provider Mark gee Encounter Details Date Type Department Care Team (Latest Contact Info) Description 07/26/2019 Travel Social History Tobacco Use Types Packs/Day Years Used Date Smoking Tobacco: Former Alcohol Use Standard Drinks/Week Comments No 0 (1 standard drink = 0.6 oz pur e alcohol) Comments No Sex and Gender Information Value Date Recorded Sex Assigned at Not on file Legal Sex Female 1:17 AM [employer] Gender Identity Not on file Sexual Orientation Not on file documented as of this encounter Plan of Treatment Not on file documented as of this encounter Visit Diagnoses Not on filedocumented in this encounter Care Teams Emt Basic Relationship Specialty Start Date End Date Asia Wyman NP PCP - General Nurse Practitioner 09/30/17 03/04/20 documented as of this encounter
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
--- OUTSIDE RECORDS SUMMARY | 2024-06-25 09:58 | XMS_ITS | Encounter Summary ---
Author Organization [facility] Healthcare Address [address] [place] [address] Care Team Providers Care Wheel Fitter Name Role Phone No, Physician Primary Care Provider Encounter Details Date Type Department Care Team (Late st Contact Info) Description 03/11/2020 Telephone [facility] Healthcare Occupatiuonal Health [address] [place] [address] Room 3420 (Third Floor) [place] [address] Mary Frank RN Social History Tobacco Use Types Packs/Day Years Used Date Smoking Tobacco: Former Alcohol Use Standard Drinks/Week Comments No 0 (1 standard drink = 0.6 oz pur e alcohol) Comments No Sex and Gender Information Value Date Recorded Sex Assigned at Not on file 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 Asymptomatic. Public health required testing due to exposure. documented in this encounter Plan of Treatment Not on file documented as of this encounter Visit Diagnoses Diagnosis COVID-19- Primary documented in this encounter Additional Health Concerns Infection Onset Date Last Indicated Resolved Time Exposure, COVID-19 Comment:Added automatically based on COVID19 lab answers indicating exposure risk 03/11/2020 03/11/2020 03/26/2020 3:05 AM C DT documented as of this encounter Care Teams Wheel Fitter Relationship Specialty Start Date End Date No, Physician PCP - General 03/05/20 04/03/20 documented as of this encounter
--- OUTSIDE RECORDS SUMMARY | 2024-06-25 09:58 | XMS_ITS | Encounter Summary ---
Author Organization [facility] Healthcare Address [address] [place] [address] Care Team Providers Care Sample Room Supervisor Name Role Phone Asia Wyman NP Primary Care Provider Mark gee Encounter Details Date Type Department Care Team (Late st Contact Info) Description 11/21/2019 10:35 PM CDT Lab 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 Infectious Disease [facility]. The 2018-Novel Coronavirus [...] Data was last revised on 2019. Nasopharyngeal 11/21/2019 10 :04 PM CDT 11/21/2019 11:44 PM CDT Narrative JANIE GAMINO - 11/22/2019 2:48 PM CDT Patient is employed by:->[facility] [employer] [facility] Is the patient experiencing any symptoms consistent with COVID (eg. Fever, cough, shortness of breath)?->No What is the reason for testing?->Post-exposure testing required by public health agency us Wendi Reich MD LAB MICROBIOLOGY - GENERAL ORDERABLES Final Result [facility] Department [place] [address] documented in this encounter Visit Diagnoses Diagnosis Exposure to COVID-19 virus documented in this encounter Care Teams Sample Room Supervisor Relationship Specialty Start Date End Date Asia Wyman NP PCP - General Nurse Practitioner 09/30/17 03/04/20 documented as of this encounter
--- OUTSIDE RECORDS SUMMARY | 2024-06-25 09:58 | XMS_ITS | Encounter Summary ---
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 Administer a single spray in one nostril. Repeat every 3 minutes as needed if no or minimal response. 04/19/2018 1 spironolactone (ALDACTONE) 100 mg tablet take 1 tablet by oral route every day 0 0 01/03/2016 0 documented as of this encounter Discharge Disposition Disposition Code Departure Means Destination Discharge to home or self care documented in this encounter Plan of Treatment Not on file documented as of this encounter Visit Diagnoses Not on filedocumented in this encounter Care Teams Manager Diabetes Relationship Specialty Start Date End Date Asia Wyman NP PCP - General Nurse Practitioner 09/30/17 03/04/20 documented as of this encounter
--- OUTSIDE RECORDS SUMMARY | 2024-06-25 09:58 | XMS_ITS | Encounter Summary ---
Author Organization [facility] Healthcare Address [address] [place] [address] Care Team Providers Care Food Assembler Kitchen Name Role Phone No, Physician Primary Care Provider [phone] Encounter Details Date Type Department Care Team (Late st Contact Info) Description 03/26/2020 Telephone [facility] Healthcare Occupatiuonal Health [address] [place] [address] Room 3420 (Third Floor) [place] [address] Alisia Mahmood NP [address] [place] [id number] Social History Tobacco Use Types Packs/Day Years Used Date Smoking Tobacco: Former Alcohol Use Standard Drinks/Week Comments No 0 (1 standard drink = 0.6 oz pur e alcohol) Comments No Sex and Gender Information Value Date Recorded Sex Assigned at Not on file 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 Asymptomatic. [...] documented as of this encounter Care Teams Food Assembler Kitchen Relationship Specialty Start Date End Date No, Physician PCP - General 03/05/20 04/03/20 documented as of this encounter
--- OUTSIDE RECORDS SUMMARY | 2024-06-25 09:58 | XMS_ITS | Encounter Summary ---
Author Organization [facility] Healthcare Address [address] [place] [address] Care Team Providers Care Boiler House Supervisor Name Role Phone Asia Wyman NP Primary Care Provider Mark gee Reason for Visit * Reason Onset Date Comments COVID-19 EVALUATION 11/04/2019 Encounter Details Date Type Department Care Team (Late st Contact Info) Description 11/04/2019 Telephone [facility] Health [address] [place] [address] Room 3420 (Third Floor) [place] [address] Yuri Ashton PA [address] [facility] [address] [facility] [address] [place] [address] COVID-19 EVALUATION Social History Tobacco Use Types Packs/Day Years Used Date Smoking Tobacco: Former Alcohol Use Standard Drinks/Week Comments No 0 (1 standard drink = 0.6 oz pur e alcohol) Comments No Sex and Gender Information Value Date Recorded Sex Assigned at Not on file 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 On-site Have you had a known, specific COVID exposure at work? Yes Have you contacted your Occupational Health office? No What PPE was employee wearing? Face Shield/Goggles;N95;Gloves;Gown Description of exposure: Blood draw on numerous COVID patients Employee Symptoms: Yes Description of Symptoms: Loss of Taste;Sore Throat;Muscle Aches;Joint Aches Did you have symptoms at work? Yes Date symptoms started: 11/01/2019 Date last worked: 11/03/2019 Do you currently live with someone known or suspected to have COVID-19? No Exposure Risk (See Exposure Guide): Low Assessment: Symptomatic, occupational exposure Plan: (A) Stay home and test Testing Site Location: [facility] Notes: Employee instructed to contact [facility] A (Stay home and test) Given your symptoms, you should not come to work and will be referred for testing. ?? Please go to the employee testing site at [facility] ?? While you are awaiting testing and results, you must remain off work. While waiting for results,home quarantine guidance still applies. You should isolate yourself at home, avoid contact with anyhousehold members as much as possible, and stay in your home without leaving except for medical care. If your symptoms worsen, please call back or call 911 - let your providers, ER or EMS now that you are being tested for COVID19. ?? Once your results are back, you will receive further instruction from Occupational Health. Don'treturn to work until you hear from [place]. Occupational Health will notify you and your manager placement when you can return to work. ?? Any isolation or quarantine instructions provided to the employee from federal, state or local public health authorities must be followed. ?? We will send you an email with self-quarantine instruction. Contact Occupational Health at [facility] [phone] documented in this encounter Plan of Treatment Not on file documented as of this encounter Visit Diagnoses Diagnosis Exposure to 2019 novel coronavirus- Primary documented in this encounter Care Teams Boiler House Supervisor Relationship Specialty Start Date End Date Asia Wyman NP PCP - General Nurse Practitioner 09/30/17 03/04/20 documented as of this encounter
--- OUTSIDE RECORDS SUMMARY | 2024-06-25 09:58 | XMS_ITS | Encounter Summary ---
Author Organization [facility] Healthcare Address [address] [place] [address] Care Team Providers Care Animal Sticker Name Role Phone Asia Wyman NP Primary Care Provider Mark gee Encounter Details Date Type Department Care Team (Late st Contact Info) Description 02/13/2020 Telephone [facility] Healthcare Occupatiuonal Health [address] [place] [address] Room 3420 (Third Floor) [place] [address] Nicole Kim RN Social History Tobacco Use Types Packs/Day Years Used Date Smoking Tobacco: Former Alcohol Use Standard Drinks/Week Comments No 0 (1 standard drink = 0.6 oz pur e alcohol) Comments No Sex and Gender Information Value Date Recorded Sex Assigned at Not on file 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 Asymptomatic. Public health required testing due to exposure. documented in this encounter Plan of Treatment Not on file documented as of this encounter Results * COVID-19 Coronavirus RNA Nasopharyngeal (02/15/2020 12:17 PM CDT) COVID-19 RNA Not Detected JANIE GAMINO Comment: Interpretive Data Testing performed at [facility] Molecular Infectious Disease Laboratory. The 2018-Novel Coronavirus [...] 02/16/2020 2:40 AM CDT Patient is employed by:->[employer] Is the patient experiencing any symptoms consistent with COVID (eg. Fever, cough, shortness of breath)?->No What is the reason for testing?->Post-exposure testing required by public health agency Wendi Reich MD LAB MICROBIOLOGY - GENERAL ORDERABLES Final Result [facility] Department [place] [address] documented in this encounter Visit Diagnoses Diagnosis Close exposure to COVID-19 virus- Primary Close exposure to COVID-19 virus documented in this encounter Additional Health Concerns Infection Onset Date Last Indicated Resolved Time Exposure, COVID-19 Comment:Added automatically based on COVID19 lab answers indicating exposure risk 01/30/2020 01/30/2020 02/14/2020 3:05 AM C DT documented as of this encounter Care Teams Animal Sticker Relationship Specialty Start Date End Date Asia Wyman NP PCP - General Nurse Practitioner 09/30/17 03/04/20 documented as of this encounter
--- OUTSIDE RECORDS SUMMARY | 2024-06-25 09:58 | XMS_ITS | Encounter Summary ---
Author Organization [facility] Healthcare Address [address] [place] [address] Care Team Providers Care Molecular Physicist Name Role Phone Asia Wyman NP Primary Care Provider Mark gee Encounter Details Date Type Department Care Team (Late st Contact Info) Description 02/05/2020 7:20 PM CDT Lab [address] [address] Close exposure to COVID-19 virus Social History Tobacco Use Types Packs/Day Years Used Date Smoking Tobacco: Former Alcohol Use Standard Drinks/Week Comments No 0 (1 standard drink = 0.6 oz pur e alcohol) Comments No Sex and Gender Information Value Date Recorded Sex Assigned at Not on file 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 The 2018-Novel Coronavirus [...] CDT 02/05/2020 9:37 PM CDT Narrative JANIE RHOADES - 02/06/2020 5:10 AM CDT Patient is employed by:->[facility] Is the patient experiencing any symptoms consistent with COVID (eg. Fever, cough, shortness of breath)?->No What is the reason for testing?->Post-exposure testing required by public health agency us Wendi Reich MD LAB MICROBIOLOGY - GENERAL ORDERABLES Final Result [facility] Department [place] [address] documented in this encounter Visit Diagnoses Diagnosis Close exposure to COVID-19 virus documented in this encounter Additional Health Concerns Infection Onset Date Last Indicated Resolved Time Exposure, COVID-19 Comment:Added automatically based on COVID19 lab answers indicating exposure risk 01/30/2020 01/30/2020 02/14/2020 3:05 AM C DT documented as of this encounter Care Teams Molecular Physicist Relationship Specialty Start Date End Date Asia Wyman NP PCP - General Nurse Practitioner 09/30/17 03/04/20 documented as of this encounter
--- OUTSIDE RECORDS SUMMARY | 2024-06-25 09:58 | XMS_ITS | Encounter Summary ---
Author Organization [facility] Healthcare Address [address] [place] [address] Care Team Providers Care Chef De Froid Name Role Phone Asia Wyman NP Primary Care Provider Mark gee Encounter Details Date Type Department Care Team (Late st Contact Info) Description 02/06/2020 Telephone [facility] Healthcare Occupatiuonal Health [address] [facility] Room 3420 (Third Floor) [place] [address] Radha Reynolds NP [address] [place] [address] Social History Tobacco Use Types Packs/Day Years Used Date Smoking Tobacco: Former Alcohol Use Standard Drinks/Week Comments No 0 (1 standard drink = 0.6 oz pur e alcohol) Comments No Sex and Gender Information Value Date Recorded Sex Assigned at Not on file 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 Asymptomatic. [...] documented as of this encounter Care Teams Chef De Froid Relationship Specialty Start Date End Date Asia Wyman, DISPATCHER MAINTENANCE SERVICE PCP - General Nurse Practitioner 09/30/17 03/04/20 documented as of this encounter
--- OUTSIDE RECORDS SUMMARY | 2024-06-25 09:58 | XMS_ITS | Encounter Summary ---
Author Organization [facility] Healthcare Address [address] [place] [address] Care Team Providers Care Student Assistance Counselor Name Role Phone Asia Wyman NP Primary Care Provider Mark gee Encounter Details Date Type Department Care Team (Late st Contact Info) Description 11/16/2019 Telephone [facility] Healthcare Occupatiuonal Health [address] [place] [address] Room 3420 (Third Floor) [place] [address] Hannah You, VALERIA Social History Tobacco Use Types Packs/Day Years Used Date Smoking Tobacco: Former Alcohol Use Standard Drinks/Week Comments No 0 (1 standard drink = 0.6 oz pur e alcohol) Comments No Sex and Gender Information Value Date Recorded Sex Assigned at Not on file 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 Asymptomatic. Public health required testing due to exposure. documented in this encounter Plan of Treatment Not on file documented as of this encounter Results * COVID-19 Coronavirus RNA Nasopharyngeal (11/21/2019 10:04 PM CDT) COVID-19 RNA Not Detected JANIE RHOADES Comment: Interpretive Data Testing performed at [facility] Molecular Infectious Disease Laboratory. The 2019-Novel Coronavirus [...] 11/22/2019 2:48 PM CDT Patient is employed by:->[facility] [employer] Is the patient experiencing any symptoms consistent with COVID (eg. Fever, cough, shortness of breath)?->No What is the reason for testing?->Post-exposure testing required by public health agency Wendi Reich MD LAB MICROBIOLOGY - GENERAL ORDERABLES Final Result [facility] Department [place] [address] documented in this encounter Visit Diagnoses Diagnosis Exposure to COVID-19 virus- Primary Exposure to COVID-19 virus documented in this encounter Care Teams Student Assistance Counselor Relationship Specialty Start Date End Date Asia Wyman NP PCP - General Nurse Practitioner 09/30/17 03/04/20 documented as of this encounter
--- OUTSIDE RECORDS SUMMARY | 2024-06-25 09:58 | XMS_ITS | Encounter Summary ---
Author Organization [facility] Healthcare Address [address] [place] [id number] Care Team Providers Care Securities Adviser Name Role Phone Asia Wyman NP Primary Care Provider Mark gee Encounter Details Date Type Department Care Team (Late st Contact Info) Description 03/03/2020 5:20 PM CDT - 03/04/2020 5:52 PM CDT Hospital Encounter [facility] ADMIT Unknown, Naseem Echols MD [facility] [place], [place] [id number] Discharge Disposition: Discharge to home or self care Social History Tobacco Use Types Packs/Day Years Used Date Smoking Tobacco: Never Assessed Comments No Sex and Gender Information Value Date Recorded Sex Assigned at Not on file Legal Sex Female 1:17 AM [employer] Gender Identity Not on file Sexual Orientation Not on file documented as of this encounter Last Filed Vital Signs Vital Sign Reading Time Taken Comments Blood Pressure 105/65 03/04/2020 3:41 PM CDT Pulse 78 03/04/2020 3:41 PM CDT Temperature 36.7 ??C (98 ??F) 03/04/2020 3:41 PM CDT Respiratory Rate - - Oxygen Saturation 97% 03/04/2020 3:41 PM CDT Inhaled Oxygen Concentration - - Weight - - Height 154.9 cm (5' 1 ) 03/04/2020 3:41 PM CDT Body Mass Index - - documented in this encounter Medications at Time of Discharge albuterol HFA (PROVENTIL HFA,VENTOLIN HFA,PROAIR HFA) 90 mcg/actuation inhalerIndicatio ns:Bronchospasm Prevention Inhale 2 puffs every 4 (four) hours as needed for wheezing or shortness of breath 1 Inhaler 07/26/2019 0 amoxicillin-clav ulanate (AUGMENTIN) 875-125 mg per tablet take 1 tablet by oral route every 12 hours 14 0 01/03/2016 0 benzonatate (TESSALON) 100 mg capsuleIndicatio ns:Cough Take 1 capsule (100 mg total) by mouth 3 (three) times a day as needed for cough 15 capsule 07/26/2019 0 buPROPion SR (WELLBUTRIN SR) 150 mg 12 hr tablet take 1 tablet by oral route every day 0 0 01/03/2016 0 busPIRone (BUSPAR) 30 mg tablet take 1 tablet by oral route 2 times every day 0 0 01/03/2016 0 clonazePAM (KlonoPIN) 0.5 mg tablet 0.5 mg [...] Procedure Name Priority Date/Time Associated Diagnosis Comments CBC WITH AUTO DIFFERENTIAL Routine 03/04/2020 6:07 AM CDT COMPREHENSIVE METABOLIC PANEL Routine 03/04/2020 6:07 AM CDT MRI LUMBAR SPINE W WO CONTRAST 03/04/2020 12:00 AM CDT MRI THORACIC SPINE W WO CONTRAST 03/04/2020 12:00 AM CDT MRI CERVICAL SPINE W WO CONTRAST 03/04/2020 12:00 AM CDT MRI BRAIN W WO CONTRAST 03/04/2020 12:00 AM CDT ECG 12-LEAD 03/03/2020 1:40 PM CDT TNI WITH LIPID PANEL Routine 03/03/2020 1:38 PM CDT CBC WITH AUTO DIFFERENTIAL Routine 03/03/2020 1:38 PM CDT ERYTHROCYTE SEDIMENTATION RATE Routine 03/03/2020 1:38 PM CDT COMPREHENSIVE METABOLIC PANEL Routine 03/03/2020 1:[address] HEAD WO CONTRAST 03/03/2020 1 2:00 AM CDT documented in this encounter Results * (ABNORMAL) Comprehensive metabolic panel (03/04/2020 6:07 AM CDT) Sodium 140 135 - 145 mmol/L [facility] Potassium 3.6 3.3 - 5.1 mmol/L [facility] Chloride 103 96 - 108 mmol/L [facility] Carbon Dioxide 26 22 - 32 mmol/L [facility] Anion Gap 11 7 - 16 [facility] Glucose 116(H) 70 - 100 mg/dL [facility] BUN 16 8 - 25 mg/dL [facility] Creatinine 1.0 0.5 - 1.1 mg/dL [facility] Comment: NOTE: Estimated GFR (Cockroft-Gault) will NOT be calculated unless patient Height and Weight were entered. Also, Kidney Disease Stage (GFR) and Estimated GFR (Cockroft-Gault) will NOT be calculated if Creatinine result is <0.2. Kidney Disease Stage 63 mL/MIN [facility] Comment: NOTE; ??The GFR is an estimated value using the creatinine, sex, age, and race of the patient. THE Estimated Kidney Disease GFR is validated for AGES 18-70 YEARS STAGE ?mL/Min ?DESCRIPTION ??1 ?90 mL/min or more ?Normal or elevated GFR ??2 ? 60-89 mL/min ?Mildly decreased GFR ??3 ? 30-59 mL/min ?Moderately decreased GFR ??4 ? 15-29 mL/min ?Severely decreased GFR ??5 ? <15 mL/min ? Kidney failure or on dialysis Calcium 9.1 8.6 - 10.3 mg/dL [facility] Total Protein 6.2(L) 6.4 - 8.3 g/dL [facility] Albumin 4.1 3.5 - 5.0 g/dL [facility] Globulin 2.1(L) 2.3 - 3.5 gm/dL [facility] Albumin/Globulin Ratio 2.0(H) 1.1 - 1.8 [facility] Total Bilirubin <0.2 0.0 - 1.2 mg/dL [facility] AST 17 0 - 32 U/L [facility] ALT 14 0 - 33 U/L [facility] Alkaline Phosphatase 58 35 - 104 U/L [facility] 03/04/2020 6:07 AM CDT 03/04/2020 6:48 AM CDT Narrative Resulting Agency Comment FREDERICK us Naseem Eubanks MD LAB BLOOD ORDERABLES Fin al Result [facility] [address] [place] [address], [facility] [phone] * (ABNORMAL) CBC with auto differential (03/04/2020 6:07 AM CDT) WBC 6.3 3.8 - 9.9 X10 3/ul [facility] RBC 3.56(L) 3.90 - 5.20 x10 6/ul [facility] Hemoglobin 11.8(L) 11.9 - 15.5 g/dL [facility] Hct 34.6(L) 35.6 - 45.5 % [facility] MCV 97.2(H) 81.3 - 96.4 fl [facility] MCH 33.1 27.1 - 33.3 pg [facility] MCHC 34.1 32.3 - 35.7 g/dl [facility] RDW 12.3 11.1 - 14.9 % [facility] Plt Count 205 150 - 400 x10 3/ul [facility] MPV 10.4 9.1 - 12.3 fl [facility] Neut % 43.3 % [facility] Immature Gran % 0.2 % [facility] Lymph % 46.5 % [facility] Aurora % 4.9 % [facility] Eos % 3.7 % [facility] AUTO BASO % 1.4 % [facility] NEUTROPHIL ABS # 2.7 1.7 - 6.5 x10 3/ul [facility] Immature Gran # 0.0 0.0 - 0.1 x10 3/ul [facility] Absolute Lymphs (auto) 2.9 0.8 - 3.3 x10 3/ul [facility] Absolute Monos (auto) 0.3 0.2 - 0.8 x10 3/ul [facility] Absolute Eos (auto) 0.2 0.0 - 0.5 x10 3/ul [facility] BASOPHIL ABS # 0.1 0.0 - 0.1 x10 3/ul [facility] Nucleat RBC Rel Count 0.0 #/100WBC [facility] NRBC abs 0.00 0.00 - 0.01 x10 3/ul [facility] Absolute Neutrophils 2,700 200 - 8,000 /ul [facility] 03/04/2020 6:07 AM CDT 03/04/2020 6:48 AM CDT Narrative Resulting Agency Comment FREDERICK us Naseem Eubanks MD LAB BLOOD ORDERABLES Fin al Result [facility] [address] [place], [place] [address] [phone] * MRI Lumbar Spine W WO Contrast (03/04/2020 12:00 AM CDT) Anatomical Region Laterality Modality Spine N/A Magnetic Resonan ce 03/04/2020 3:09 PM CDT Narrative 03/04/2020 3:29 PM CDT Patient Name: KRISTY ESTES ?Ordering Dr: Collin Ochoa MD ?? D.O.B: 1975 ? Exam Date: 03/04/20 ?? 0000 ?? Age: 44 ?Sex: Female ? MR#: [id number] ?? Loc: ??C231-98 ? RADIOLOGY REPORT ?? Order #[id number] ?? Magnetic Resonance Imaging ? MRI Lumbar W ?? W/O Contrast ? Signed ?? EXAM DESCRIPTION: ?? MRI Lumbar W ?? W/O Contrast ? REASON FOR STUDY: ?? Facial tingling and tingling in the right foot beginning 2 ?? days ago ? TECHNIQUE: ??Sagittal and Axial imaging includes T1, T1 post gadolinium, T2, ?? and STIR sequences. ? CONTRAST TYPE/DOSE: ?? 11 mL of Dotarem injected via ??left wrist ? COMPARISON: ?? None available ? FINDINGS: ? SEGMENTATION: ??There are 5 lumbar type vertebral bodies. ??The lowest developed ?? disc space is denoted L5-S1. ? ALIGNMENT: ??There is customary lumbar lordosis. ??There is no evidence of ?? spondylolisthesis. ? VERTEBRAE: ??Imaged marrow signal appears preserved. ??There is no evidence of ?? marrow replacing lesion or fracture. ? DISC HEIGHT: ??Moderate intervertebral disc height loss is noted at L5-S1. ? Remaining intervertebral discs appear relatively maintained. ? HARDWARE: ??None in the spine. ? CORD/CAUDA: ??The conus terminates at the T12-L1 interspace. ??Distal spinal ?? cord demonstrates customary signal. ??The nerve roots are normally distributed. ? LOWER THORACIC: ??Please see separately dictated MRI of the thoracic spine. ? INDIVIDUAL DISC LEVELS: ? L1-2: ??No diffuse disc bulge or focal herniation. No significant spinal canal ?? or neuroforaminal stenosis. ? L2-3: ??No diffuse disc bulge or focal herniation. No significant spinal canal ?? or neuroforaminal stenosis. ? L3-4: ??No diffuse disc bulge or focal herniation. No significant spinal canal ?? or neuroforaminal stenosis. ? L4-5: ??Mild broad-based disc bulge at L4-L5 is noted. ??There is mild bilateral ?? neuroforaminal stenosis. ? L5-S1: ??Moderate diffuse disc bulge is noted posteriorly. ??Mild right ?? neuroforaminal stenosis is present. ??No significant left neuroforaminal ?? stenosis. ? SACRUM: ??Visualized upper sacrum intact. ? VISUALIZED UPPER ABDOMEN: ??No significant abnormality. ? OTHER: ??No other significant findings. ? IMPRESSION: ?? Minimal arthritic changes of the lumbar spine, detailed above. ? No significant neuroforaminal stenosis or cord compression. ? THIS IS AN ELECTRONICALLY VERIFIED FINAL REPORT ?? 03/04/2020 3:29 PM - Electronically signed by James Bailey M.D. ?? James Bailey M.D. ? AT ?? D: ??03/04/2020 3:29 PM ?? T: ? Report ID: [id number] ?? Reading Location: ??[id number] ? REPORT ELECTRONICALLY SIGNED IN OTHER VENDOR SYSTEM ?? Resulting Agency Comment I Procedure Note James Bailey MD - 03/04/2020 Patient Name: KRISTY ESTES Dr: Collin Ochoa MD D.O.B: 1975 Exam Date: 03/04/20 0000 Age: 44 Sex: Female MR#: [id number] Loc: C231-98 RADIOLOGY REPORT Order #[id number] Magnetic Resonance Imaging MRI Lumbar W W/O Contrast Signed EXAM DESCRIPTION: MRI Lumbar W W/O Contrast REASON FOR STUDY: Facial tingling and tingling in the right footbeginning 2 days ago TECHNIQUE: Sagittal and Axial imaging includes T1, T1 post gadolinium,T2, and STIR sequences. CONTRAST TYPE/DOSE: 11 mL of Dotarem injected via left wrist COMPARISON: None available FINDINGS: SEGMENTATION: There are 5 lumbar type vertebral bodies. The lowestdeveloped disc space is denoted L5-S1. ALIGNMENT: There is customary lumbar lordosis. There is no evidence of spondylolisthesis. VERTEBRAE: Imaged marrow signal appears preserved. There is no evidenceof marrow replacing lesion or fracture. DISC HEIGHT: Moderate intervertebral disc height loss is noted at L5-S1. Remaining intervertebral discs appear relatively maintained. HARDWARE: None in the spine. CORD/CAUDA: The conus terminates at the T12-L1 interspace. Distalspinal cord demonstrates customary signal. The nerve roots are normallydistributed. LOWER THORACIC: Please see separately dictated MRI of the thoracicspine. INDIVIDUAL DISC LEVELS: L1-2: No diffuse disc bulge or focal herniation. No significant spinalcanal or neuroforaminal stenosis. L2-3: No diffuse disc bulge or focal herniation. No significant spinalcanal or neuroforaminal stenosis. L3-4: No diffuse disc bulge or focal herniation. No significant spinalcanal or neuroforaminal stenosis. L4-5: Mild broad-based disc bulge at L4-L5 is noted. There is mildbilateral neuroforaminal stenosis. L5-S1: Moderate diffuse disc bulge is noted posteriorly. Mild right neuroforaminal stenosis is present. No significant left neuroforaminal stenosis. SACRUM: Visualized upper sacrum intact. VISUALIZED UPPER ABDOMEN: No significant abnormality. OTHER: No other significant findings. IMPRESSION: Minimal arthritic changes of the lumbar spine, detailedabove. No significant neuroforaminal stenosis or cord compression. THIS IS AN ELECTRONICALLY VERIFIED FINAL REPORT 03/04/2020 3:29 PM - Electronically signed by James Bailey M.D. AT T: Report ID: [id number] Reading Location: [id number] REPORT ELECTRONICALLY SIGNED IN OTHER VENDOR SYSTEM Collin Ochoa MD IMG MRI PROCEDURES F inal Result * MRI Thoracic Spine W WO Contrast (03/04/2020 12:00 AM CDT) Anatomical Region Laterality Modality Spine N/A Magnetic Resonan ce 03/04/2020 2:57 PM CDT Narrative 03/04/2020 3:09 PM CDT Patient Name: KRISTY ESTES ?Ordering Dr: Collin Ochoa MD ?? D.O.B: 1975 ? Exam Date: 03/04/20 ?? 0000 ?? Age: 44 ?Sex: Female ? MR#: [id number] ?? Loc: ??C231-98 ? RADIOLOGY REPORT ?? Order #[id number] ?? Magnetic Resonance Imaging ? MRI Thoracic Spine W ??W/O Cont ? Signed ?? EXAM DESCRIPTION: ?? MRI Thoracic Spine W ??W/O Cont ? REASON FOR STUDY: ?? Facial tingling and right-sided weakness 2 weeks ? TECHNIQUE: ??Sagittal and Axial imaging includes T1, T2, STIR and gradient echo ?? sequences. ??T1 post gadolinium sequences. ? CONTRAST TYPE/DOSE: ?? 11 mL of Dotarem injected via ??left wrist ? COMPARISON: ?? None available ? FINDINGS: ? ALIGNMENT: ??There is customary thoracic kyphosis. ??No spondylolisthesis is ?? identified. ? VERTEBRAE: ??Vertebral body height well-maintained. Normal appearing marrow. ? HARDWARE: ??None in the spine. ? CORD: ??Normal in size and signal intensity. ? THORACIC DISCS T1-T12: ??Disc heights well-maintained. ??No significant spinal ?? stenosis or neuroforaminal stenosis. ? SOFT TISSUES: ??No soft tissue masses. ? OTHER: ??No other significant abnormality. ? IMPRESSION: ?? Unremarkable MRI of the thoracic spine. ??No evidence of abnormal ?? enhancing lesion. ??No evidence of cord compression or neuroforaminal stenosis. ? THIS IS AN ELECTRONICALLY VERIFIED FINAL REPORT ?? 03/04/2020 3:09 PM - Electronically signed by James Bailey M.D. ?? James Bailey M.D. ? AT ?? D: ??03/04/2020 3:09 PM ?? T: ? Report ID: [id number] ?? Reading Location: ??[id number] ? REPORT ELECTRONICALLY SIGNED IN OTHER VENDOR SYSTEM ?? Resulting Agency Comment I Procedure Note James Bailey MD - 03/04/2020 Patient Name: KRISTY ESTES Dr: Collin Ochoa MD D.O.B: 1975 Exam Date: 03/04/20 0000 Age: 44 Sex: Female MR#: [id number] Loc: C231-98 [id number] Order #[id number] Magnetic Resonance Imaging MRI Thoracic Spine W W/O Cont Signed EXAM DESCRIPTION: MRI Thoracic Spine W W/O Cont REASON FOR STUDY: Facial tingling and right-sided weakness 2 weeks TECHNIQUE: Sagittal and Axial imaging includes T1, T2, STIR and gradientecho sequences. T1 post gadolinium sequences. CONTRAST TYPE/DOSE: 11 mL of Dotarem injected via left wrist COMPARISON: None available FINDINGS: ALIGNMENT: There is customary thoracic kyphosis. No spondylolisthesisis identified. VERTEBRAE: Vertebral body height well-maintained. Normal appearingmarrow. HARDWARE: None in the spine. CORD: Normal in size and signal intensity. THORACIC DISCS T1-T12: Disc heights well-maintained. No significantspinal stenosis or neuroforaminal stenosis. SOFT TISSUES: No soft tissue masses. OTHER: No other significant abnormality. IMPRESSION: Unremarkable MRI of the thoracic spine. No evidence ofabnormal enhancing lesion. No evidence of cord compression or neuroforaminalstenosis. THIS IS AN ELECTRONICALLY VERIFIED FINAL REPORT 03/04/2020 3:09 PM - Electronically signed by James Bailey M.D. AT T: Report ID: [id number] Reading Location: [place] [address] REPORT ELECTRONICALLY SIGNED IN OTHER VENDOR SYSTEM Collin Ochoa MD IMG MRI PROCEDURES F inal Result * MRI Cervical Spine W WO Contrast (03/04/2020 12:00 AM CDT) Anatomical Region Laterality Modality Spine N/A Magnetic Resonan ce 03/04/2020 2:47 PM CDT Narrative 03/04/2020 2:56 PM CDT Patient Name: KRISTY ESTES ?Ordering Dr: Collin Ochoa MD ?? D.O.B: 1975 ? Exam Date: 03/04/20 ?? 0000 ?? Age: 44 ?Sex: Female ? MR#: [id number] ?? Loc: ??C231-98 ? RADIOLOGY REPORT ?? Order #[id number] ?? Magnetic Resonance Imaging ? MRI Cervical W ?? W/O Contrast ? Signed ?? EXAM DESCRIPTION: ?? MRI Cervical W ?? W/O Contrast ? REASON FOR STUDY: ?? Facial tingling, right hand weakness for 2 weeks ? TECHNIQUE: ??Sagittal and Axial imaging includes T1, T2, STIR and gradient echo ?? sequences. ??Post contrast T1-weighted images. ? CONTRAST TYPE/DOSE: ?? 11 mL of Dotarem injected via ??left wrist ? COMPARISON: ?? None available ? FINDINGS: ? ALIGNMENT: ??There is straightening of the expected cervical lordosis. ??Grade 1 ?? retrolisthesis of C5 on C6 measures 0.1 cm. ??Grade 1 anterolisthesis of C4 on ?? C5 measures 0.1 cm. ? VERTEBRAE: ??There is no evidence of vertebral body fracture. ??There is no ?? evidence of marrow replacement. ? DISCS: ??Mild intervertebral disc height loss at C4-C5 is noted. ??Moderate ?? intervertebral disc height loss at C5-C6 is noted. ??There is some thickening ?? of the posterior longitudinal ligament in this region. ? HARDWARE: ??None in the spine. ? CORD: ??Normal in size and signal intensity. ? C1-C2: ??No significant spinal stenosis. ? C2-C3: ??No significant spinal stenosis or neural foraminal stenosis. ? C3-C4: ??No significant spinal stenosis or neural foraminal stenosis. ? C4-C5: ??Central disc protrusion is noted. ??There is some minor mass effect ?? upon the spinal cord and narrowing of the ventral thecal space. ??There remains ?? some fluid attenuation between the protruding disc fragment and the spinal ?? cord. ??No significant neuroforaminal stenosis. ? C5-C6: ??Mild left eccentric disc bulge is noted at C5-C6 causing effacement of ?? the ventral thecal sac. ??There is no significant osseous neuroforaminal ?? stenosis. ? C6-C7: ??No significant spinal stenosis or neural foraminal stenosis. ? C7-T1: ??No significant spinal stenosis or neural foraminal stenosis. ? UPPER THORACIC: ??Please see separately dictated CT of the thoracic spine. ? OTHER: ??No other significant finding. ? IMPRESSION: ? 1. ??Disc protrusions at C4-C5 and C5-C6. ??There is narrowing of the spinal ?? canal diameter and mild mass effect upon the cord but no evidence cord ?? compression. ? 2. ??No evidence of osseous neuroforaminal stenosis. ? 3. ??No evidence of fracture or marrow replacing process. ? 4. ??Mild spondylolisthesis, detailed above. ? THIS IS AN ELECTRONICALLY VERIFIED FINAL REPORT ?? 03/04/2020 2:56 PM - Electronically signed by James Bailey M.D. ?? James Bailey M.D. ? AT ?? D: ??03/04/2020 2:56 PM ?? T: ? Report ID: [id number] ?? Reading Location: ??[id number] ? REPORT ELECTRONICALLY SIGNED IN OTHER VENDOR SYSTEM ?? Resulting Agency Comment I Procedure Note James Bailey MD - 03/04/2020 Patient Name: KRISTY ESTES Dr: Collin Ochoa MD D.O.B: 1975 Exam Date: 03/04/20 0000 Age: 44 Sex: Female MR#: [id number] Loc: C231-98 RADIOLOGY REPORT Order #[id number] Magnetic Resonance Imaging MRI Cervical W W/O Contrast Signed EXAM DESCRIPTION: MRI Cervical W W/O Contrast REASON FOR STUDY: Facial tingling, right hand weakness for 2 weeks TECHNIQUE: Sagittal and Axial imaging includes T1, T2, STIR and gradientecho sequences. Post contrast T1-weighted images. CONTRAST TYPE/DOSE: 11 mL of Dotarem injected via left wrist COMPARISON: None available FINDINGS: ALIGNMENT: There is straightening of the expected cervical lordosis.Grade 1 retrolisthesis of C5 on C6 measures 0.1 cm. Grade 1 anterolisthesis ofC4 on C5 measures 0.1 cm. VERTEBRAE: There is no evidence of vertebral body fracture. There is no evidence of marrow replacement. DISCS: Mild intervertebral disc height loss at C4-C5 is noted. Moderate intervertebral disc height loss at C5-C6 is noted. There is somethickening of the posterior longitudinal ligament in this region. HARDWARE: None in the spine. CORD: Normal in size and signal intensity. C1-C2: No significant spinal stenosis. C2-C3: No significant spinal stenosis or neural foraminal stenosis. C3-C4: No significant spinal stenosis or neural foraminal stenosis. C4-C5: Central disc protrusion is noted. There is some minor masseffect upon the spinal cord and narrowing of the ventral thecal space. Thereremains some fluid attenuation between the protruding disc fragment and thespinal cord. No significant neuroforaminal stenosis. C5-C6: Mild left eccentric disc bulge is noted at C5-C6 causingeffacement of the ventral thecal sac. There is no significant osseous neuroforaminal stenosis. C6-C7: No significant spinal stenosis or neural foraminal stenosis. C7-T1: No significant spinal stenosis or neural foraminal stenosis. UPPER THORACIC: Please see separately dictated CT of the thoracic spine. OTHER: No other significant finding. IMPRESSION: 1. Disc protrusions at C4-C5 and C5-C6. There is narrowing of thespinal canal diameter and mild mass effect upon the cord but no evidence cord compression. 2. No evidence of osseous neuroforaminal stenosis. 3. No evidence of fracture or marrow replacing process. 4. Mild spondylolisthesis, detailed above. THIS IS AN ELECTRONICALLY VERIFIED FINAL REPORT 03/04/2020 2:56 PM - Electronically signed by James Bailey M.D. AT T: Report ID: [id number] Reading Location: [place] [address] REPORT ELECTRONICALLY SIGNED IN OTHER VENDOR SYSTEM Clolin Ochoa MD IMG MRI PROCEDURES F inal Result * MRI Brain W WO Contrast (03/04/2020 12:00 AM CDT) Anatomical Region Laterality Modality Head and Neck N/A Magnetic Resonan ce 03/04/2020 2:45 PM CDT Narrative 03/04/2020 2:55 PM CDT Patient Name: KRISTY ESTES ?Ordering Dr: Collin Ochoa MD ?? D.O.B: 1975 ? Exam Date: 03/04/20 ?? 0000 ?? Age: 44 ?Sex: Female ? MR#: [id number] ?? Loc: ??C231-98 ? RADIOLOGY REPORT ?? Order #[id number] ?? Magnetic Resonance Imaging ? MRI Brain W ?? W/O Contrast ? Signed ?? EXAM DESCRIPTION: ?? MRI Brain W ?? W/O Contrast ? REASON FOR STUDY: ?? Right-sided facial tingling today ? TECHNIQUE: ??Multiplanar imaging includes noncontrast T1, T2, FLAIR, diffusion ?? with ADC map and post contrast T1 sequences. Additional sequence(s) sensitive ?? to blood products. ??Images stored on PACS. ? CONTRAST TYPE/DOSE: ?? 11 cc Dotarem injected via ??left wrist ? COMPARISON: ?? 03/03/2020 CT ? FINDINGS: ? CEREBRUM: ??No hemorrhage, edema, or mass effect. ??No abnormal enhancement. ? WHITE MATTER: ??Normal. ? POSTERIOR FOSSA: ??There is minimal right cerebellar tonsillar ectopia. ? Brainstem and cerebellum otherwise appear unremarkable. ??No abnormal ?? enhancement. ? DIFFUSION IMAGING: ??No recent infarction. ? EXTRAAXIAL SPACES: ??No hemorrhage. ??No mass or abnormal enhancement. ? BRAIN VOLUME: ??Within normal limits for age. ? PITUITARY: ??Unremarkable. ? VASCULATURE: ??No flow disturbance identified. ? ORBITS: ??No masses. Globes normal. ? PARANASAL SINUSES AND MASTOIDS: ??Well-aerated with no fluid levels. No mucosa ?? thickening. ? OTHER: ??No other significant finding. ? IMPRESSION: ?? Normal MRI of the brain without and with intravenous gadolinium ?? contrast. ? THIS IS AN ELECTRONICALLY VERIFIED FINAL REPORT ?? 03/04/2020 2:55 PM - Electronically signed by Marc Mata M.D. ?? Marc Mata M.D. ? RS ?? D: ??03/04/2020 2:55 PM ?? T: ? Report ID: [id number] ?? Reading Location: ??[id number] ? REPORT ELECTRONICALLY SIGNED IN OTHER VENDOR SYSTEM ?? Resulting Agency Comment I Procedure Note Marc Mata MD - 03/04/2020 Patient Name: KRISTY ESTES Dr: Collin Ochoa MD D.O.B: 1975 Exam Date: 03/04/20 0000 Age: 44 Sex: Female MR#: [id number] Loc: C231-98 RADIOLOGY REPORT Order #[id number] Magnetic Resonance Imaging MRI Brain W W/O Contrast Signed EXAM DESCRIPTION: MRI Brain W W/O Contrast REASON FOR STUDY: Right-sided facial tingling today TECHNIQUE: Multiplanar imaging includes noncontrast T1, T2, FLAIR,diffusion with ADC map and post contrast T1 sequences. Additional sequence(s)sensitive to blood products. Images stored on PACS. CONTRAST TYPE/DOSE: 11 cc Dotarem injected via left wrist COMPARISON: 03/03/2020 CT FINDINGS: CEREBRUM: No hemorrhage, edema, or mass effect. No abnormalenhancement. WHITE MATTER: Normal. POSTERIOR FOSSA: There is minimal right cerebellar tonsillar ectopia. Brainstem and cerebellum otherwise appear unremarkable. No abnormal enhancement. DIFFUSION IMAGING: No recent infarction. EXTRAAXIAL SPACES: No hemorrhage. No mass or abnormal enhancement. BRAIN VOLUME: Within normal limits for age. PITUITARY: Unremarkable. VASCULATURE: No flow disturbance identified. ORBITS: No masses. Globes normal. PARANASAL SINUSES AND MASTOIDS: Well-aerated with no fluid levels. Nomucosa thickening. OTHER: No other significant finding. IMPRESSION: Normal MRI of the brain without and with intravenousgadolinium contrast. THIS IS AN ELECTRONICALLY VERIFIED FINAL REPORT 03/04/2020 2:55 PM - Electronically signed by Marc Mata M.D. RS T: Report ID: [id number] Reading Location: [place] [address] REPORT ELECTRONICALLY SIGNED IN OTHER VENDOR SYSTEM Collin Ochoa MD IMG MRI PROCEDURES F inal Result * ECG 12 lead (03/03/2020 1:40 PM CDT) Ventricular Rate EKG/Min 80 BPM ER RADIOLOGY Atrial Rate 80 BPM ER RADIOLOGY MD-Interval (MSEC) 150 ms ER RADIOLOGY QRS-Interval (MSEC) 70 ms ER RADIOLOGY QT-Interval (MSEC) 338 ms ER RADIOLOGY QTc 389 ms ER RADIOLOGY P Martin 56 degrees ER RADIOLOGY R Martin 12 degrees ER RADIOLOGY T Martin 49 degrees ER RADIOLOGY Diagnosis Normal sinus rhythm Normal ECG No previous ECGs available ER RADIOLOGY 03/03/2020 1:40 PM CDT 03/03/2020 10:26 PM CDT Narrative Resulting Agency Comment WILFRED Brooke VOGEL ECG ORDERABLES Final Re sult Performing Organization Address [facility] Co de Phone Number ER RADIOLOGY * Erythrocyte sedimentation rate (03/03/2020 1:38 PM CDT) Pathologist [facility] ESR 18 1 - 20 mm/hr [facility] 03/03/2020 1:38 PM CDT 03/03/2020 1:40 PM CDT Narrative Resulting Agency Comment FREDERICK Brooke VOGEL LAB BLOOD ORDERABLES [place] [address], [facility] [phone] * (ABNORMAL) TNI with LIPID PANEL (03/03/2020 1:38 PM CDT) Troponin I <0.300 0.000 - 0.300 ng/mL [facility] Comment: Reference using NURIA Chemiluminescence ? Negative: Repeat in 4-6 hours as indicated. Triglycerides 97 0 - 149 mg/dL [facility] Comment: National Lipid Association/NCEP Guidelines: ?? Normal ?< 150 mg/dL ?? Borderline high ?? 150-199 mg/dL ?? High ?200-499 mg/dL ?? Very High ? >=500 mg/dL Cholesterol 215(H) 0 - 199 mg/dL [facility] Comment: National Lipid Association/NCEP Guidelines: Desirable ? < 200 mg/dL Borderline high: ??200-239 mg/dL High Risk: ?>=240 mg/dL HDL Cholesterol 63 mg/dL [facility] Comment: Reference Ranges: ? Males: >=40 mg/dL ? Females: >=50 mg/dL LDL Cholesterol, Calc 133(H) 0 - 129 mg/dL [facility] Comment: National Lipid Association/NCEP Guidelines: ??Optimal ? < 100 mg/dL ??Near Optimal ?100-129 mg/dL ??Borderline high 130-159 mg/dL ??High ?>=160 mg/dL Cholesterol/HDL Ratio 3.4 [facility] Comment: Optimal ??< 3.5:1 High ? > 5:1 03/03/2020 1:38 PM CDT 03/03/2020 1:40 PM CDT Narrative Resulting Agency Comment ER us Brooke VOGEL LAB BLOOD ORDERABLES Fin al Result [facility] [address] [phone] * Comprehensive metabolic panel (03/03/2020 1:38 PM CDT) Sodium 135 135 - 145 mmol/L [facility] Potassium 4.2 3.3 - 5.1 mmol/L [facility] Chloride 102 96 - 108 mmol/L [facility] Carbon Dioxide 26 22 - 32 mmol/L [facility] Anion Gap 7 7 - 16 [facility] Glucose 94 70 - 100 mg/dL [facility] BUN 14 8 - 25 mg/dL [facility] Creatinine 0.9 0.5 - 1.1 mg/dL [facility] Comment: NOTE: Estimated GFR (Cockroft-Gault) will NOT be calculated unless patient Height and Weight were entered. Also, Kidney Disease Stage (GFR) and Estimated GFR (Cockroft-Gault) will NOT be calculated if Creatinine result is <0.2. Kidney Disease Stage 72 mL/MIN [facility] Comment: NOTE; ??The GFR is an estimated value using the creatinine, sex, age, and race of the patient. THE Estimated Kidney Disease GFR is validated for AGES 18-70 YEARS STAGE ?mL/Min ?DESCRIPTION ??1 ?90 mL/min or more ?Normal or elevated GFR ??2 ? 60-89 mL/min ?Mildly decreased GFR ??3 ? 30-59 mL/min ?Moderately decreased GFR ??4 ? 15-29 mL/min ?Severely decreased GFR ??5 ? <15 mL/min ? Kidney failure or on dialysis Calcium 9.5 8.6 - 10.3 mg/dL [facility] Total Protein 7.2 6.4 - 8.3 g/dL [facility] Albumin 4.6 3.5 - 5.0 g/dL [facility] Globulin 2.6 2.3 - 3.5 gm/dL [facility] Albumin/Globulin Ratio 1.8 1.1 - 1.8 [facility] Total Bilirubin 0.4 0.0 - 1.2 mg/dL [facility] AST 19 0 - 32 U/L [facility] ALT 14 0 - 33 U/L [facility] Alkaline Phosphatase 65 35 - 104 U/L [facility] 03/03/2020 1:38 PM CDT 03/03/2020 1:40 PM CDT Narrative Resulting Agency Comment ER us Brooke VOGEL LAB BLOOD ORDERABLES Fin al Result [facility] [address] [phone] * (ABNORMAL) CBC with auto differential (03/03/2020 1:38 PM CDT) WBC 8.9 3.8 - 9.9 X10 3/ul [facility] RBC 3.84(L) 3.90 - 5.20 x10 6/ul [facility] Hemoglobin 12.8 11.9 - 15.5 g/dL [facility] Hct 37.0 35.6 - 45.5 % [facility] MCV 96.4 81.3 - 96.4 fl [facility] MCH 33.3 27.1 - 33.3 pg [facility] MCHC 34.6 32.3 - 35.7 g/dl [facility] RDW 12.5 11.1 - 14.9 % [facility] Plt Count 227 150 - 400 x10 3/ul [facility] MPV 10.0 9.1 - 12.3 fl [facility] Neut % 71.1 % [facility] Immature Gran % 0.2 % [place] [facility] Lymph % 22.6 % [facility] Aurora % 3.7 % [facility] Eos % 1.5 % [facility] AUTO BASO % 0.9 % [facility] NEUTROPHIL ABS # 6.3 1.7 - 6.5 x10 3/ul [facility] Immature Gran # 0.0 0.0 - 0.1 x10 3/ul [facility] Absolute Lymphs (auto) 2.0 0.8 - 3.3 x10 3/ul [facility] Absolute Monos (auto) 0.3 0.2 - 0.8 x10 3/ul [facility] Absolute Eos (auto) 0.1 0.0 - 0.5 x10 3/ul [facility] BASOPHIL ABS # 0.1 0.0 - 0.1 x10 3/ul [facility] Nucleat RBC Rel Count 0.0 #/100WBC [facility] NRBC abs 0.00 0.00 - 0.01 x10 3/ul [facility] Absolute Neutrophils 6,300 200 - 8,000 /ul [facility] 03/03/2020 1:38 PM CDT 03/03/2020 1:40 PM CDT Narrative Resulting Agency Comment FREDERICK us Brooke VOGEL LAB BLOOD ORDERABLES Fin al Result [facility] [address] [place] [address], [facility] [phone] * CT Head WO Contrast (03/03/2020 12:00 AM CDT) Anatomical Region Laterality Modality Head and Neck N/A Computed Tomogra phy 03/03/2020 2:28 PM CDT Narrative 03/03/2020 2:33 PM CDT Patient Name: KRISTY ESTES ?Ordering Dr: Brooke De Leon PA-C ?? D.O.B: 1975 ? Exam Date: 03/03/20 ?? 0000 ?? Age: 44 ?Sex: Female ? MR#: [id number] ?? Loc: ? RADIOLOGY REPORT ?? Order #[id number] ?? CT Scan ? CT Head WO IV Contrast ? Signed ?? EXAM DESCRIPTION: ?? CT Head WO IV Contrast ? REASON FOR STUDY: ?? Right upper arm weakness for 2 weeks. ? TECHNIQUE: ??Axial images acquired through the brain without intravenous ?? contrast. ??Images stored on PACS. ?? Automated exposure control was used as a ?? dose optimization technique for this examination. ? COMPARISON: ?? None available. ? FINDINGS: ?BRAIN: There is no intracranial hemorrhage or evidence of acute ischemia. ?? There is no midline shift or mass effect. The ventricles are normal in ?? caliber. ? EXTRA-AXIAL SPACES: There is no extra-axial fluid collection or mass. ? CALVARIUM: There is no calvarial fracture. ? PARANASAL SINUSES AND MASTOIDS: There is mild partial opacification of the ?? left maxillary sinus. ??The remainder of the visualized paranasal sinuses and ?? the mastoid air cells are normal in appearance. ? ORBITS: The globes are intact. The intraconal fat is normal in appearance. ?OTHER: The nasal septum is mildly deviated to the right. ? IMPRESSION: ? 1. ??No evidence of an acute intracranial process. ? 2. ??Mild partial opacification of the left maxillary sinus, as can be seen in ?? the setting of sinusitis. ? THIS IS AN ELECTRONICALLY VERIFIED FINAL REPORT ?? 03/03/2020 2:33 PM - Electronically signed by Clarke Mello M.D. ?? Clarke Mello M.D. ? AB ?? D: ??03/03/2020 2:33 PM ?? T: ? Report ID: [id number] ?? Reading Location: ??[id number] ? REPORT ELECTRONICALLY SIGNED IN OTHER VENDOR SYSTEM ?? Resulting Agency Comment E Procedure Note Clarke Mello MD - 03/03/2020 Patient Name: KRISTY ESTES Dr: Brooke De Leon PA-C, D.O.B: 1975 Exam Date: 03/03/20 0000 Age: 44 Sex: Female MR#: [id number] Loc: [facility]#: [id number] RADIOLOGY REPORT Order #[id number] CT Scan CT Head WO IV Contrast Signed EXAM DESCRIPTION: CT Head WO IV Contrast REASON FOR STUDY: Right upper arm weakness for 2 weeks. TECHNIQUE: Axial images acquired through the brain without intravenous contrast. Images stored on PACS. Automated exposure control was usedas a dose optimization technique for this examination. COMPARISON: None available. FINDINGS: BRAIN: There is no intracranial hemorrhage or evidence of acuteischemia. There is no midline shift or mass effect. The ventricles are normal in caliber. EXTRA-AXIAL SPACES: There is no extra-axial fluid collection or mass. CALVARIUM: There is no calvarial fracture. PARANASAL SINUSES AND MASTOIDS: There is mild partial opacification ofthe left maxillary sinus. The remainder of the visualized paranasal sinusesand the mastoid air cells are normal in appearance. ORBITS: The globes are intact. The intraconal fat is normal inappearance. OTHER: The nasal septum is mildly deviated to the right. IMPRESSION: 1. No evidence of an acute intracranial process. 2. Mild partial opacification of the left maxillary sinus, as can beseen in the setting of sinusitis. THIS IS AN ELECTRONICALLY VERIFIED FINAL REPORT 03/03/2020 2:33 PM - Electronically signed by Clarke Mello M.D. AB T: Report ID: [id number] Reading Location: [place] [address] REPORT ELECTRONICALLY SIGNED IN OTHER VENDOR SYSTEM Brooke VOGEL IMHeather CT PROCEDURES Final Result documented in this encounter Visit Diagnoses Not on filedocumented in this encounter Additional Health Concerns Infection Onset Date Last Indicated Resolved Time Exposure, COVID-19 Comment:Added automatically based on COVID19 lab answers indicating exposure risk 02/20/2020 02/20/2020 03/06/2020 3:05 AM C DT documented as of this encounter Care Teams Securities Adviser Relationship Specialty Start Date End Date Wyman, Asia Harp NP PCP - General Nurse Practitioner 09/30/17 03/04/20 documented as of this encounter
--- OUTSIDE RECORDS SUMMARY | 2024-06-25 09:58 | XMS_ITS | Encounter Summary ---
Author Organization [facility] Healthcare Address [address] [place] [address] Care Team Providers Care Follow Up Rep Name Role Phone Annette Fernando Yanezony Primary Care Provider [phone] Encounter Details Date Type Department Care Team (Late st Contact Info) Description 12/04/2012 3:03 PM CDT - 12/07/2012 10:00 AM CDT Hospital Encounter [facility] Kiet Cristobal MD [address] [place] [address] [address] [place] [id number] Other current maternal conditions classifiable elsewhere, with delivery; Advanced maternal age, delivered; Carrier or suspected carrier of group B Streptococcus; Delivery outcome of single liveborn Social History Tobacco Use Types Packs/Day Years Used Date Smoking Tobacco: Never Assessed Comments Unknown Sex and Gender Information Value Date Recorded Sex Assigned at Not on file 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 Admit Date: 12/04/2012 Dict.: Brianda Cedillo M.D. Disch. Date: Diagnosis: Term intrauterine , delivered. Procedure: Spontaneous vaginal delivery. Hospital Course: Kristy is a 37-year-old white female, G5, P3-0-1-3, who presented for elective induction of labor at 39 weeks gestation. Cervidil was placed overnight and subsequently Pitocin was started and artificial rupture of membranes was undertaken. Within a few hours, she underwent a spontaneous vaginal delivery of a vigorous 7 pound 3 ounce female with Apgars of 8 and 9. She had snug nuchal cord x1 that was reduced at delivery and she has a little bit of facial bruising. No lacerations and a spontaneous placental delivery with an estimated blood loss of 250 mL. The patient's predelivery hemoglobin and hematocrit was 10.6 and 31.7. The postdelivery hemoglobin and hematocrit was 9.2 and 28.1. She has been using vitamins but I advised her to add some iron when she gets home. We will give her prescriptions for Motrin and Uneeda, and she will follow up with Dr. Dickens in 2 weeks and 6 weeks . It is not clear yet whether the baby will be dismissed today, so if she is not, the patient will stay till tomorrow. Brianda Cedillo M.D. CW/at TD: 12/06/2012 16:29 CC: S/l Dr Dickens Authenticated by Brianda Cedillo MD On 12/06/2012 05:01:31 PM documented in this encounter H&P Notes * Provider, MD Gena - 12/04/2012 12:00 AM CDT Datetime Report Generated by CPN: 12/04/2012 16:50 Patient Name: KRISTY ESTES : 1975 Datetime Report Generated by CPN: 12/04/2012 16:50 Inital Evaluation Arrival Date/Time: 11/27/2012 12:17 (11/27/2012 12:48/Gayla Sandoval RN) Arrival Comments: I think my water broke (11/27/2012 12:48/Gayla Sandoval RN) EGA: 39.0 (12/04/2012 15:30/QS system process) Method of arrival: Ambulatory (12/04/2012 15:30/Migdalia Brand RN) Arrived From: Home (11/27/2012 12:48/Gayla Sandoval RN) Movement: Present (11/27/2012 12:48/Gayla Sandoval, VALERIA) Contractions: Denies/Absent (11/27/2012 12:48/Gayla Sandoval, RN) Rupture of membrane: Unsure (11/27/2012 12:48/Gayla Sandoval, RN) Vaginal Bleeding : None (11/27/2012 12:48/Gayla Sandoval, RN) Vaginal discharge: Denies (11/27/2012 12:48/Gayla Sandoval, RN) Abdominal Trauma: Not Applicable (11/27/2012 12:48/Gayla Sandoval, VALERIA) Patient Complaints: None (11/27/2012 12:48/Miri Newell RN) Time Provider Notified: 11/27/2012 12:17 (11/27/2012 12:48/Gayla Sandoval RN) Provider: Demarco (11/27/2012 12:48/Gayla Sandoval RN) Inital Plan: clean void urine, nitrazine, fern by SOHAN Galarza, EFM et toco, VS checks; notify with update/for orders. (11/27/2012 12:48/Gayla Sandoval RN) Dispostion: Discharged Home (11/27/2012 12:48/Miri Newell RN) Triage Summary: no prescriptions given. To f/u at next appointment (11/27/2012 12:48/Miri Newell RN) documented in this encounter Plan of Treatment Not on file documented as of this encounter Procedures Procedure Name Priority Date/Time Associated Diagnosis Comments DISCHARGE CUMULATIVE SUMMARY ADDENDUM Routine 12/09/2012 12:25 AM CDT DISCHARGE LABORATORY CUMULATIVE REPORT Routine 12/07/2012 12:00 AM CDT SURGICAL PATHOLOGY REPORT Routine 12/06/2012 1:25 PM CDT BLOOD WBC CELL MORPHOLOGIC EXAM, AUTO Routine 12/06/2012 6:36 AM CDT BLOOD CELL COUNT (CBC) Routine 3 6:36 AM CDT BLOOD WBC CELL MORPHOLOGIC EXAM, AUTO Routine 12/04/2012 3:25 PM CDT BLOOD ANTIBODY TITER Routine 12/04/2012 3:25 PM CDT BLOOD ANTIBODY SCREEN INTERP Routine 12/04/2012 3:25 PM CDT BLOOD ANTIBODY IDENTIFICATION Routine 12/04/2012 3:25 PM CDT BLOOD ABO, RH Routine 12/04/2012 3:25 PM CDT BLOOD CELL COUNT (CBC) Routine 3 3:25 PM CDT documented in this encounter Results * Discharge Cumulative Summary Addendum (12/09/2012 12:25 AM CDT) 12/09/2012 12:2 5 AM CDT Narrative HISTORICAL RESULTS - 12/09/2012 12:25 AM CDT Patient No: [id number] ? [facility] Patient Name: KRISTY ESTES ? [facility] Healthcare Age: 37 YRS ?: 1975 ?Sex:F ?[address] )[id number] ?? Adm Dt: 12/04/2012 ?[place] ??[address] Created: 12/09/2012 ??0025 ?? Pt. Type: I ? Discharge Dt: 12/07/2012 ? Pathologists: Kristy Atwood MD Admit Dr. Sagastume Dr: KIET DICKENS MD ?S U R G I Veronica Lyle ?P A T H O L O G Y ?R E P O R T ? Case #: ?[id number] ? Date: 12/06/12 SPECIMEN SOURCE: ? Placenta. CLINICAL INFORMATION AND IMPRESSION: ? 5. ??Para 3. ??Aborta 1. ??Gest age: 39 wks. ?? wt: 7 lbs, 3 oz. Sex: ? female. ??Apgars: 8 at 1 min, 9 at 5 min. ??Delivery: vaginal. CAN x 1. GROSS DESCRIPTION: ? The specimen is submitted in a single container labeled Kristy Estes . ? Submitted is a discoid suarez placenta with attached membranes and ? umbilical cord. The trimmed placenta weighs 477 grams and measures 17 x 15 x 2 ? cm. The surface is shiny and blue-smith in color. The maternal surface ? appears to be complete and intact. Serial cross sections show no ? intraplacental gross abnormalities. The membranes are torn 4 cm from the ? placental margin. They are smooth, glistening and translucent. The cord ? inserts 5 cm from the closest edge of the placenta. It measures 44 cm in ? length, 2 cm in diameter and contains three blood vessels. ??Engineering Vice President ? sections are submitted in four cassettes. ?SJ/moshe/blessing MICROSCOPIC DESCRIPTION: ? The umbilical cord is free of inflammation and has a normal two arteries and a ? vein. There is a patchy mild neutrophil infiltrate in the chorion layer of the ? membranes. ??The villous architecture is consistent with a term delivery. SJ/lm ?? CONTINUED ?Page: ?? 1 Patient No: [id number] ? [facility] Patient Name: KRISTY ESTES ? [facility] Age: 37 YRS ?: 1975 ?Sex:F ?[address] )[id number] ?? Adm Dt: 12/04/2012 ?[place], [place] ??[address] Created: 12/09/2012 ??0025 ?? Pt. Type: I ? Discharge Dt: 12/07/2012 ? Pathologists: Kristy Atwood MD Admit Attend Dr: KIET DICKENS MD ?S Clayton Lyle ?P A T H O L O G Y ?R E P O R T ? Case #: ?[id number] ? Date: 12/06/12 DIAGNOSIS: ? PLACENTA AND CORD ? -MILD CHORIOAMNIONITIS ? [id number], [id number], [id number], [id number] ? Pathologist: NATO VILLEGAS MD Electronic signature ? SMJ SMJ/LM 12/08/12 ?? END OF CHART ? Page: ?? 2 us Historical Provider LAB MICROBIOLOGY - GENERA L ORDERABLES Final Result HISTORICAL RESULTS * Discharge Laboratory Cumulative Report (12/07/2012 12:00 AM CDT) 12/07/2012 Narrative HISTORICAL RESULTS - 12/08/2012 12:26 AM CDT Patient No: [id number] ? [facility] Patient Name: KRISTY ESTES ? [facility] Age: 37 YRS ?: 1975 ?Sex:F ?[address] )[id number] ?? Adm Dt: 12/04/2012 ?[place] ??[id number] Created: 12/08/2012 ??0026 ?? Pt. Type: I ? Discharge Dt: 12/07/2012 ? Pathologists: Kristy Atwood MD Admit Attend Dr: KIET DICKENS MD ? BLOOD CELL COUNTS ?Collection Date: ?12/06/12 ? 12/04/12 ?Collection Time: ?0636 ? 1525 ? Ref Range: ?? Units: [4.00-10.50] /CMM ? WBC X 10^3 ? 13.26 H ?11.02 H [4.20-5.40] ??/CMM ? RBC X 10^6 ?2.77 L ? 3.16 L [12.0-16.0] ??G/DL ? HGB ?9.2 L ? 10.6 L [37.0-47.0] ??% ?HCT ? 28.1 L ? 31.7 L [77.0-97.0] ??FL ? MCV ?101.4 H ?100.3 H [23.0-34.0] ??PG ? MCH ? 33.2 ? 33.5 [32.0-36.0] ??% ?MCHC ?32.7 ? 33.4 [11.5-14.5] ??% ?RDW ? 13.5 ? 13.6 [150-451] ?? /CMM ? PLT X 10^3 ? 176 ?208 ?BLOOD CELL DIFFERENTIAL ?Collection Date: ?12/06/12 ? 12/04/12 ?Collection Time: ?0636 ? 1525 ? Ref Range: ?? Units: [54.0-69.0] ??% ?NEUTROPHILS ? 78.4 H ? 81.7 H [25.0-33.0] ??% ?LYMPHOCYTES ? 16.0 L ? 12.4 L [1.0-13.0] ??% ?MONOCYTES ?4.1 ?4.9 [0.0-10.0] ??% ?EOSINOPHILS ?1.0 ?0.5 [0.0-1.0] ?? % ?BASOPHILS ?0.2 ?0.1 ? /CMM ? A LYMPHOCYTE ? 2.1 ?1.4 [0.0-1.0] ?? % ?IMM GRAN % ? 0.3 ?0.4 [0.00-0.02] ??/CMM ? A IMM GRAN ?0.40 H ? 0.40 H [1.1-1.9] ?? /CMM ? A MONOCYTE ? 0.5 L ?0.5 L [1.4-6.5] ?? /CMM ? A NEUTROPHIL ?10.4 H ?9.0 H [0.0-0.7] ?? /CMM ? A EOSINOPHIL ? 0.1 ?0.1 [0.0-0.2] ?? /CMM ? A BASOPHIL ? 0.0 ?0.0 Footnotes and Symbols: L = Low, H = High ?? CONTINUED ?Page: ?? 1 Patient No: [id number] ? [facility] Patient Name: KRISTY ESTES ? [facility] Healthcare Age: 37 YRS ?: 1975 ?Sex:F ?[address] )[phone] ?? Adm Dt: 12/04/2012 ?[place] ??[address] Created: 12/08/2012 ??0026 ?? Pt. Type: I ? Discharge Dt: 12/07/2012 ? Pathologists: Kristy Atwood MD Admit Attend Dr: KIET DICKENS MD ?BLOOD BANK ?Collection Date: ?12/04/12 ?Collection Time: ?1525 ? BLOOD TYPE AND ANTIBODY SCREEN ?ABO RH TYPE ?A POS ?ANTIBODY SCREEN ? POSITIVE * ?ANTIBODY ID ? ANTI-c ?TITERED AB ?ANTI-c ?AB TITER ? 1:2 Footnotes and Symbols: * = Abnormal ?? CONTINUED ?Page: ?? 2 Patient No: [id number] ? [facility] Patient Name: KRISTY ESTES ? [facility] Age: 37 YRS ?: 1975 ?Sex:F ?[address] )[id number] ?? Adm Dt: 12/04/2012 ?[place], [place] ??[address] Created: 12/08/2012 ??0026 ?? Pt. Type: I ? Discharge Dt: 12/07/2012 ? Pathologists: Kristy Atwood MD Admit Attend Dr: KIET DICKENS MD ? A N T I B O D Y ?? I D E N T I F I C A T I O N ? Case #: ?[id number] ? Date: 12/04/12 BLOOD TYPE: ? A, Rh positive. ANTIBODY SCREEN: ? Positive. ANTIBODY IDENTIFIED: ? Current: ??Anti-c (titer=1:2). ? Previous: Negative screen. COMMENT: ? This patient has an alloantibody, more specifically anti-c, that is present in ? a titer of 1:2. ??Anti-c is associated with both hemolytic transfusion ? reactions as well as hemolytic disease of . Therefore, if this patient ? has future pregnancies, this antibody should be monitored. ??In addition, if ? RBC transfusions are required in the future this patient should only receive ? units that are negative for the c antigen. ? Pathologist: ??Kristy Atwood M.D. ??Electronic signature ? SCR ??SCR/BLESSING 12/05/12 ?? END OF CHART ? Page: ?? 3 us Historical Provider LAB BLOOD ORDERABLES Shama lyle Result HISTORICAL RESULTS * Surgical Pathology Report (12/06/2012 1:25 PM CDT) 12/06/2012 1:25 PM CDT Narrative HISTORICAL RESULTS - 12/08/2012 2:26 PM CDT [facility] Patient No: [id number] Patient Name: KRISTY ESTES )[id number] Age: 37 YRS ?? : 1975 Admit Phys: KIET DICKENS MD Case #: [id number] ? Date: 12/06/12 SPECIMEN SOURCE: ? Placenta. CLINICAL INFORMATION AND IMPRESSION: ? 5. ??Para 3. ??Aborta 1. ??Gest age: 39 wks. ?? wt: ? 7 lbs, 3 oz. Sex: ??female. ??Apgars: 8 at 1 min, 9 at 5 min. ? Delivery: vaginal. CAN x 1. GROSS DESCRIPTION: ? The specimen is submitted in a single container labeled ? Kristy Estes . ??Submitted is a discoid suarez placenta ? with attached membranes and umbilical cord. The trimmed ? placenta weighs 477 grams and measures 17 x 15 x 2 cm. The ? surface is shiny and blue-smith in color. The maternal ? surface appears to be complete and intact. Serial cross ? sections show no intraplacental gross abnormalities. The ? membranes are torn 4 cm from the placental margin. They are ? smooth, glistening and translucent. The cord inserts 5 cm ? from the closest edge of the placenta. It measures 44 cm in ? length, 2 cm in diameter and contains three blood vessels. ? Engineering Vice President sections are submitted in four cassettes. ? SJ/jw/lm MICROSCOPIC DESCRIPTION: ? The umbilical cord is free of inflammation and has a normal ? two arteries and a vein. There is a patchy mild neutrophil ? infiltrate in the chorion layer of the membranes. ??The ? villous architecture is consistent with a term delivery. ? SJ/lm DIAGNOSIS: ? PLACENTA AND CORD ? -MILD CHORIOAMNIONITIS ? [id number], [id number], [id number], [id number] ? Pathologist: NATO VILLEGAS MD Electronic ?signature ? SMJ SMJ/LM 12/08/12 us Historical Provider LAB PATHOLOGY ORDERABLES Final Result HISTORICAL RESULTS * (ABNORMAL) Blood cell count (CBC) (12/06/2012 6:36 AM CDT) WBC 13.3(H) 4.0 - 10.5 K/cumm HISTORICAL RESULTS RBC 2.77(L) 4.20 - 5.40 M/cumm HISTORICAL RESULTS Hgb 9.2(L) 12.0 - 16.0 g/dl HISTORICAL RESULTS Hct 28.1(L) 37.0 - 47.0 % HISTORICAL RESULTS MCV 101.4(H) 77.0 - 97.0 fl HISTORICAL RESULTS MCH 33.2 23.0 - 34.0 pg HISTORICAL RESULTS MCHC 32.7 32.0 - 36.0 g/dl HISTORICAL RESULTS Rdw 13.5 11.5 - 14.5 % HISTORICAL RESULTS Platelets 176 150 - 451 K/cumm HISTORICAL RESULTS MPV 10.8(H) 7.4 - 10.4 fl HISTORICAL RESULTS Blood specimen (specimen) 12/06/2012 6:36 AM CDT Result [facility] Brianda Cedillo MD LAB BLOOD ORDERABLE S Final Result Performing Organization Address [facility] de Phone Number HISTORICAL RESULTS * (ABNORMAL) Blood WBC cell morphologic exam, auto (12/06/2012 6:36 AM CDT) Lymphocytes 16.0(L) 25.0 - 33.0 % HISTORICAL RESULTS Monos 4.1 1.0 - 13.0 % HISTORICAL RESULTS Neutrophils 78.4(H) 54.0 - 69.0 % HISTORICAL RESULTS Eosinophils 1.0 0.0 - 10.0 % HISTORICAL RESULTS Basophils 0.2 0.0 - 1.0 % HISTORICAL RESULTS Immature granulocytes 0.3 0.0 - 1.0 % HISTORICAL RESULTS Lymphocytes, abs 2.1 1.2 - 3.4 K/cumm HISTORICAL RESULTS Monocytes, absolute 0.5(L) 1.1 - 1.9 K/cumm HISTORICAL RESULTS Neutrophils, abs 10.4(H) 1.4 - 6.5 K/cumm HISTORICAL RESULTS Eosinophils, abs 0.1 0.0 - 0.7 cells/cum m HISTORICAL RESULTS Basophils, abs 0.0 0.0 - 0.2 K/cumm HISTORICAL RESULTS Immature granulocyte, abs 0(H) 0 - 0 K/cumm HISTORICAL RESULTS Blood specimen (specimen) 12/06/2012 6:36 AM CDT Result [facility] Brianda Cedillo MD LAB BLOOD ORDERABLE S Final Result Performing Organization Address [facility] de Phone Number HISTORICAL RESULTS * Blood ABO, Rh (12/04/2012 3:25 PM CDT) ABO, Rho (D) interp A Positive HISTORICAL RESULTS Blood specimen (specimen) 12/04/2012 3:25 PM CDT Result [facility] Brianda Cedillo MD LAB BLOOD ORDERABLE S Final Result Performing Organization Address [facility] de Phone Number HISTORICAL RESULTS * Blood antibody titer (12/04/2012 3:25 PM CDT) Antibody titer ANTI-c - HISTO RICAL RESULTS Erythrocyte ab, current titer 1:2 HISTORICAL RESULTS Blood specimen (specimen) 12/04/2012 3:25 PM CDT us Brianda Cedillo MD LAB BLOOD ORDERABLE S Final Result Performing Organization Address [facility] de Phone Number HISTORICAL RESULTS * Blood antibody identification (12/04/2012 3:25 PM CDT) RBC ab, ID #1 ANTI-c - HISTOR ICAL RESULTS Blood specimen (specimen) 12/04/2012 3:25 PM CDT us Brianda Cedillo MD LAB BLOOD ORDERABLE S Final Result Performing Organization Address [facility] Phone Number HISTORICAL RESULTS * (ABNORMAL) Blood antibody screen interp (12/04/2012 3:25 PM CDT) Tonya, indirect Positive(A ) HISTORICAL RESULTS Blood specimen (specimen) 12/04/2012 3:25 PM CDT us Brianda Cedillo MD LAB BLOOD ORDERABLE S Final Result Performing Organization Address [facility] Phone Number HISTORICAL RESULTS * (ABNORMAL) Blood cell count (CBC) (12/04/2012 3:25 PM CDT) WBC 11.0(H) 4.0 - 10.5 K/cumm HISTORICAL RESULTS RBC 3.16(L) 4.20 - 5.40 M/cumm HISTORICAL RESULTS Hgb 10.6(L) 12.0 - 16.0 g/dl HISTORICAL RESULTS Hct 31.7(L) 37.0 - 47.0 % HISTORICAL RESULTS MCV 100.3(H) 77.0 - 97.0 fl HISTORICAL RESULTS MCH 33.5 23.0 - 34.0 pg HISTORICAL RESULTS MCHC 33.4 32.0 - 36.0 g/dl HISTORICAL RESULTS Rdw 13.6 11.5 - 14.5 % HISTORICAL RESULTS Platelets 208 150 - 451 K/cumm HISTORICAL RESULTS MPV 10.7(H) 7.4 - 10.4 fl HISTORICAL RESULTS Blood specimen (specimen) 12/04/2012 3:25 PM CDT Brianda Cedillo MD LAB BLOOD ORDERABLE S Final Result Performing Organization Address City/State/[facility] Co de Phone Number HISTORICAL RESULTS * (ABNORMAL) Blood WBC cell morphologic exam, auto (12/04/2012 3:25 PM CDT) Lymphocytes 12.4(L) 25.0 - 33.0 % HISTORICAL RESULTS Monos 4.9 1.0 - 13.0 % HISTORICAL RESULTS Neutrophils 81.7(H) 54.0 - 69.0 % HISTORICAL RESULTS Eosinophils 0.5 0.0 - 10.0 % HISTORICAL RESULTS Basophils 0.1 0.0 - 1.0 % HISTORICAL RESULTS Immature granulocytes 0.4 0.0 - 1.0 % HISTORICAL RESULTS Lymphocytes, abs 1.4 1.2 - 3.4 K/cumm HISTORICAL RESULTS Monocytes, absolute 0.5(L) 1.1 - 1.9 K/cumm HISTORICAL RESULTS Neutrophils, abs 9.0(H) 1.4 - 6.5 K/cumm HISTORICAL RESULTS Eosinophils, abs 0.1 0.0 - 0.7 cells/cum m HISTORICAL RESULTS Basophils, abs 0.0 0.0 - 0.2 K/cumm HISTORICAL RESULTS Immature granulocyte, abs 0(H) 0 - 0 K/cumm HISTORICAL RESULTS Blood specimen (specimen) 12/04/2012 3:25 PM CDT Brianda Cedillo MD LAB BLOOD ORDERABLE S Final Result HISTORICAL RESULTS documented in this encounter Visit Diagnoses Diagnosis Other current maternal conditions classifiable elsewhere, with delivery Advanced maternal age, delivered Elderly multigravida delivered, with mention of antepartum condition Carrier or suspected carrier of group B Streptococcus Carrier or suspected carrier of Group B streptococcus Delivery outcome of single liveborn infant documented in this encounter Care Teams Follow Up Rep Relationship Specialty Start Date End Date Fernando Bryant DO [address] [place] [address] PCP - General 04/30/11 03/31/17 documented as of this encounter
--- OUTSIDE RECORDS SUMMARY | 2024-06-25 09:58 | XMS_ITS | Encounter Summary ---
Author Organization [facility] Healthcare Address [address] [place] [address] Care Team Providers Care Administrative Support Coordinator Name Role Phone No, Physician Primary Care Provider [phone] Encounter Details Date Type Department Care Team (Late st Contact Info) Description 03/05/2020 Telephone [facility] Healthcare Occupatiuonal Health [address] [place] [address] Room [address] (Third Floor) [place] [address] Mary Frank RN Social History Tobacco Use Types Packs/Day Years Used Date Smoking Tobacco: Former Alcohol Use Standard Drinks/Week Comments No 0 (1 standard drink = 0.6 oz pur e alcohol) Comments No Sex and Gender Information Value Date Recorded Sex Assigned at Not on file 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 On-site Have you had a known, specific COVID exposure? Yes Have you contacted your Occupational Health office or Student Health Services? No What PPE was employee wearing? Face Shield/Goggles;N95;Gloves;Gown Description of exposure: Blood draw on numerous COVID patients Employee Symptoms: Yes Description of Symptoms: Loss of Taste;Sore Throat;Muscle Aches;Joint Aches Did you have symptoms at work? Yes Date symptoms started: 11/01/2019 Date last worked: 11/03/2019 Do you currently live with, or have ongoing contact with, someone known or suspected to have COVID-19? No Exposure Risk (See Exposure Guide): Low Assessment: Symptomatic, occupational exposure Plan: (A) Stay home and test Testing Site Location: [facility] Notes: Employee instructed to contact [facility] documented in this encounter Plan of Treatment Not on file documented as of this encounter Visit Diagnoses Not on filedocumented in this encounter Additional Health Concerns Infection Onset Date Last Indicated Resolved Time Exposure, COVID-19 Comment:Added automatically based on COVID19 lab answers indicating exposure risk 02/20/2020 02/20/2020 03/06/2020 3:05 AM C DT documented as of this encounter Care Teams Administrative Support Coordinator Relationship Specialty Start Date End Date No, Physician PCP - General 03/05/20 04/03/20 documented as of this encounter
--- OUTSIDE RECORDS SUMMARY | 2024-06-25 09:58 | XMS_ITS | Encounter Summary ---
Author Organization [facility] Healthcare Address [address] [place] [address] Care Team Providers Care Carpenter Helper Name Role Phone No, Physician Primary Care Provider [phone] Encounter Details Date Type Department Care Team (Late st Contact Info) Description 04/02/2020 Telephone [facility] Healthcare Occupatiuonal Health [address] [facility] [address] (Third Floor) [place] [address] Nora Angel NP [address] [place] [address] Social History Tobacco Use Types Packs/Day Years Used Date Smoking Tobacco: Former Alcohol Use Standard Drinks/Week Comments No 0 (1 standard drink = 0.6 oz pur e alcohol) Comments No Sex and Gender Information Value Date Recorded Sex Assigned at Not on file 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 Asymptomatic. [...] documented as of this encounter Care Teams Carpenter Helper Relationship Specialty Start Date End Date No, Physician PCP - General 03/05/20 04/03/20 documented as of this encounter
--- OUTSIDE RECORDS SUMMARY | 2024-06-25 09:58 | XMS_ITS | Encounter Summary ---
Author Organization [facility] Healthcare Address [address] [place] [id number] Care Team Providers Care Retail Commission Sales Associate Name Role Phone Asia Wyman NP Primary Care Provider Mark gee Reason for Visit * Reason Comments Cough Encounter Details Date Type Department Care Team (Late st Contact Info) Description 07/26/2019 6:12 PM JIG INSPECTOR - 07/26/2019 7:05 PM JIG INSPECTOR Emergency [facility] Emergency Department [address] [place] [address] Upper respiratory tract infection, unspecified type (Primary Dx) Discharge Disposition: Discharge to home or self care Social History Tobacco Use Types Packs/Day Years Used Date Smoking Tobacco: Former Alcohol Use Standard Drinks/Week Comments No 0 (1 standard drink = 0.6 oz pur e alcohol) Comments No Sex and Gender Information Value Date Recorded Sex Assigned at Not on file Legal Sex Female 1:17 AM JIG INSPECTOR Gender Identity Not on file Sexual Orientation Not on file documented as of this encounter Last Filed Vital Signs Vital Sign Reading Time Taken Comments Blood Pressure 121/75 07/26/2019 6:11 PM JIG INSPECTOR Pulse 80 07/26/2019 6:11 PM JIG INSPECTOR Temperature 36.6 ??C (97.9 ??F) 07/26/2019 6:09 PM CS T Respiratory Rate 18 07/26/2019 6:09 PM JIG INSPECTOR Oxygen Saturation 100% 07/26/2019 6:11 PM JIG INSPECTOR Inhaled Oxygen Concentration - - Weight 51.3 kg (113 lb) 07/26/2019 6:09 PM JIG INSPECTOR Height 154.9 cm (5' 1 ) 07/26/2019 6:09 PM JIG INSPECTOR Body Mass Index 21.35 07/26/2019 6:09 PM JIG INSPECTOR documented in this encounter Discharge Diagnoses Diagnosis Acute upper respiratory infection, unspecified - ACUTE UPPER RESPIRATORY INFECTION, UNSPECIFIED Anxiety disorder, unspecified - ANXIETY DISORDER, UNSPECIFIED Major depressive disorder, single episode, unspecified - MAJOR DEPRESSIVE DISORDER, SINGLE EPISODE, UNSPECIFIED Post-traumatic stress disorder, unspecified - POST-TRAUMATIC STRESS DISORDER, UNSPECIFIED Unspecified lump in unspecified breast - UNSPECIFIED LUMP IN UNSPECIFIED BREAST Nicotine dependence, unspecified, uncomplicated - NICOTINE DEPENDENCE, UNSPECIFIED, UNCOMPLICATED Tubal ligation status - TUBAL LIGATION STATUS Family history of ischemic heart disease and other diseases of the circulatory system - FAMILY HISTORY OF ISCHEMIC HEART DISEASE AND OTHER DISEASES OF THE CIRCULATORY SYSTEM documented in this encounter Discharge Instructions * Discharge Instructions* Carolyn Quintanilla NP - 07/26/2019 6:55 PM JIG INSPECTOR Use over the counter Tylenol and Motrin per manufacturers guidelines for relief of pain and fever. Follow up with Asia wyman without fail. INSPECTOR INSPECTOR * Attachments The following attachments cannot be sent through Care Everywhere. * URI, Viral, No Abx (Adult) (Emirati) documented in this encounter Medications at Time [...] 01/03/2016 0 documented as of this encounter Ordered Prescriptions Prescription Sig Dispense Quantity Refills Last Filled Start Date End Date albuterol HFA (PROVENTIL HFA,VENTOLIN HFA,PROAIR HFA) 90 mcg/actuation inhalerIndications :Bronchospasm Prevention Inhale 2 puffs every 4 (four) hours as needed for wheezing or shortness of breath 1 Inhaler 07/26/2019 0 benzonatate (TESSALON) 100 mg capsuleIndications :Cough Take 1 capsule (100 mg total) by mouth 3 (three) times a day as needed for cough 15 capsule 07/26/2019 0 documented in this encounter Discharge Disposition Disposition Code Departure Means Destination Discharge to home or self care documented in this encounter ED Notes * Carolyn Quintanilla NP - 07/26/2019 6:37 PM CST HPI Chief Complaint Patient presents with ??? Cough 43 y.o. year old female with PMHX Anxiety Depression History of tubal ligation Mass of breast-Lump or mass in breast Posttraumatic stress disorder accompanied by self presents to ED with c/o Cough Denies fever, chills, nausea, vomiting, diarrhea, SOB, CP, numbness, tingling. Cough started 1 month ago. Pt was prescribed Amoxicillin 2 weeks ago for five days. Pt has non-productive cough. Pt is able to speak in full sentences. No muffled voice or drooling. Denies other complaint at this time. Patient History Patient Active Problem List Diagnosis Date Noted ??? Hyperlipidemia 11/11/2013 Class: Chronic ??? Generalized anxiety disorder 08/18/2010 Class: Chronic ??? Depression 08/18/2010 Class: Chronic ??? Dyssomnia 09/03/2009 Class: Chronic ??? Inflammatory polyarthropathy ([facility]) 09/03/2009 Class: Chronic ??? Myopathy 09/03/2009 Class: Chronic Past Medical History: Diagnosis Date ??? Anxiety disorder Anxiety ??? Depression Depression ??? History of tubal ligation History of tubal ligation ??? Mass of breast Lump or mass in breast ??? Posttraumatic stress disorder PTSD - Post-traumatic stress disorder History reviewed. No pertinent surgical history. Family History Problem Relation Age of Onset ??? Heart disease Other Family history of Cardiovascular disease; ??? Diabetes Other Family history of Diabetes mellitus; Social History Tobacco Use ??? Smoking status: Former Smoker Substance Use Topics ??? Alcohol use: No ??? Drug use: No Social History Patient does not qualify to have social determinant information on file (likely too young). Social History Narrative ??? Not on file Review of Systems Review of Systems Constitutional: Negative. Negative for chills and fever. HENT: Negative. Negative for ear pain and sore throat. Eyes: Negative. Negative for pain and visual disturbance. Respiratory: Positive for cough. Negative for shortness of breath. Cardiovascular: Negative. Negative for chest pain and palpitations. Gastrointestinal: Negative. Negative for abdominal pain and vomiting. Genitourinary: Negative. Negative for dysuria and hematuria. Musculoskeletal: Negative. Negative for arthralgias and back pain. Skin: Negative. Negative for color change and rash. Neurological: Negative. Negative for seizures and syncope. Psychiatric/Behavioral: Negative. All other systems reviewed and are negative. Physical Exam ED Triage Vitals Temp Pulse Resp BP SpO2 07/26/19 1809 07/26/19 1811 07/26/19 1809 07/26/19 1811 07/26/19 1811 36.6 ??C (97.9 ??F) 80 18 121/75 100 % Temp src Heart Rate Source Patient Position BP Location FiO2 (%) 07/26/19 1809 -- -- -- -- Temporal Physical Exam Vitals signs and nursing note reviewed. Constitutional: General: She is awake. She is not in acute distress. Appearance: Normal appearance. She is well-developed. She is not ill-appearing, toxic-appearing or diaphoretic. HENT: Head: Normocephalic and atraumatic. Right Ear: Hearing, tympanic membrane, ear canal and external ear normal. Left Ear: Hearing, tympanic membrane, ear canal and external ear normal. Nose: Nose normal. Right Sinus: No maxillary sinus tenderness or frontal sinus tenderness. Left Sinus: No maxillary sinus tenderness or frontal sinus tenderness. Mouth/Throat: Lips: [place]. Mouth: Mucous membranes are moist. Pharynx: Oropharynx is clear. Uvula midline. No pharyngeal swelling, oropharyngeal exudate, posterior oropharyngeal erythema or uvula swelling. Tonsils: No tonsillar exudate or tonsillar abscesses. Swellin+ on the right. 1+ on the left. Eyes: General: Lids are normal. Conjunctiva/sclera: Conjunctivae normal. Neck: Musculoskeletal: Full passive range of motion without pain, normal range of motion and neck supple. Trachea: Trachea and phonation normal. Cardiovascular: Rate and Rhythm: Normal rate and regular rhythm. Pulses: Normal pulses. Heart sounds: Normal heart sounds. No murmur. No friction rub. No gallop. Pulmonary: Effort: Pulmonary effort is normal. No respiratory distress. Breath sounds: Normal breath sounds and air entry. No stridor, decreased air movement or transmitted upper airway sounds. No decreased breath sounds, wheezing, rhonchi or rales. Abdominal: General: Bowel sounds are normal. There is no distension. Palpations: Abdomen is soft. Tenderness: There is no tenderness. There is no guarding. Lymphadenopathy: Cervical: No cervical adenopathy. Skin: General: Skin is warm and dry. Capillary Refill: Capillary refill takes less than 2 seconds. Neurological: General: No focal deficit present. Mental Status: She is alert, oriented to person, place, and time and easily aroused. Motor: Motor function is intact. Coordination: Coordination is intact. Gait: Gait is intact. Deep Tendon Reflexes: Reflexes are normal and symmetric. Psychiatric: Attention and Perception: Attention normal. Mood and Affect: Mood normal. Speech: Speech normal. Behavior: Behavior normal. Behavior is cooperative. Thought Content: Thought content normal. Cognition and Memory: Cognition normal. Judgment: Judgment normal. [facility] ED Course as of Jul 26 1854 Time: 07/26 1851 Comment: Discussed x-ray results with patient. Advised to use Tylenol and Motrin for relief of fever and pain, to follow up with PMD for further evaluation and treatment. Pt verbalized understanding.All questions answered at this time. By: Carolyn Quintanilla NP Upper respiratory tract infection, unspecified type Carolyn Quintanilla NP 07/26/191854 Cosigned by Kurt Nash MD at 07/27/2019 12:28 AM JIG INSPECTOR INSPECTOR INSPECTOR Associated attestation - Kurt Nash MD - 07/27/2019 12:28 AM JIG INSPECTOR ED Attestation Based on the medical record the care appears appropriate. * Jay Moeller RN - 07/26/2019 6:07 PM CST Patient arrives to the ED with complaints of a non productive cough x 1 month, patient state she went to her pcp and was given antibiotics because patient states she heard her symptoms were that of tuberculosis. Patient denies coughing up blood. Patient states she has been having shortness of breath. Patient denies being around anyone with TB INSPECTOR INSPECTOR documented in this encounter Plan of Treatment Not on file documented as of this encounter Procedures Procedure Name Priority Date/Time Associated Diagnosis Comments XR CHEST PA LATERAL 2 VIEWS ED 07/26/2019 6:22 PM JIG INSPECTOR documented in this encounter Results * XR Chest Pa Lateral 2 Views (07/26/2019 6:22 PM JIG INSPECTOR) Anatomical Region Laterality Modality Body, Chest N/A Computed Radiogr aphy 07/26/2019 6:16 PM JIG INSPECTOR Narrative 07/26/2019 6:48 PM JIG INSPECTOR PROCEDURE INFORMATION: Exam: XR Chest, 2 Views Exam date and time: 07/26/2019 6:16 PM Age: 43 years old Clinical indication: Shortness of breath; Patient HX: Complaints of a non productive cough x 1 month, patient state she went to her pcp and was given antibiotics because patient states she heard her symptoms were that of tuberculosis. Smoker. TECHNIQUE: Imaging protocol: XR of the chest Views: 2 views. COMPARISON: CR XR CHEST 2 VIEWS 04/01/2017 12:36 PM FINDINGS: Lungs: Unremarkable. No consolidation. Pleural space: Unremarkable. No pleural effusion. No pneumothorax. Heart/Mediastinum: Unremarkable. No cardiomegaly. Bones/joints: Unremarkable. IMPRESSION: 1. No acute findings. 2. A viral infection is not excludable and may not manifest radiographically. THIS DOCUMENT HAS BEEN ELECTRONICALLY SIGNED BY DAVID GARCIA MD Procedure Note David Garcia MD - 07/26/2019 PROCEDURE INFORMATION: Exam: XR Chest, 2 Views Exam date and time: 07/26/2019 6:16 PM Age: 43 years old Clinical indication: Shortness of breath; Patient HX: Complaints of anon productive cough x 1 month, patient state she went to her pcp and wasgiven antibiotics because patient states she heard her symptoms were that of tuberculosis. Smoker. TECHNIQUE: Imaging protocol: XR of the chest Views: 2 views. COMPARISON: CR XR CHEST 2 VIEWS 04/01/2017 12:36 PM FINDINGS: Lungs: Unremarkable. No consolidation. Pleural space: Unremarkable. No pleural effusion. No pneumothorax. Heart/Mediastinum: Unremarkable. No cardiomegaly. Bones/joints: Unremarkable. IMPRESSION: 1. No acute findings. 2. A viral infection is not excludable and may not manifestradiographically. THIS DOCUMENT HAS BEEN ELECTRONICALLY SIGNED BY DAVID GARCIA MD Jovita Maria MD IMG XR PROCEDURES Final Result documented in this encounter Visit Diagnoses Diagnosis Upper respiratory tract infection, unspecified type- Primary documented in this encounter Care Teams Retail Commission Sales Associate Relationship Specialty Start Date End Date Asia Wyman NP PCP - General Nurse Practitioner 09/30/17 03/04/20 documented as of this encounter
--- OUTSIDE RECORDS SUMMARY | 2024-06-25 09:58 | XMS_ITS | Encounter Summary ---
Author Organization [facility] Healthcare Address [address] [place] [address] Care Team Providers Care Analytical Engineer Name Role Phone Asia Wyman NP Primary Care Provider Mark gee Encounter Details Date Type Department Care Team (Late st Contact Info) Description 02/27/2020 Telephone [facility] Healthcare Occupatiuonal Health [address] [facility] Room [address] (Third Floor) [place] [address] Radha Reynolds NP [address] [place] [address] Social History Tobacco Use Types Packs/Day Years Used Date Smoking Tobacco: Former Alcohol Use Standard Drinks/Week Comments No 0 (1 standard drink = 0.6 oz pur e alcohol) Comments No Sex and Gender Information Value Date Recorded Sex Assigned at Not on file Legal Sex Female 1:17 AM STRIKE PLANNING APPLICATIONS Gender Identity Not on file Sexual Orientation Not on file documented as of this encounter Miscellaneous Notes * Telephone Encounter - Radha Reynolds RN - 02/27/2020 2:49 PM CDT COVID19 test order placed. Asymptomatic. [...] documented as of this encounter Care Teams Analytical Engineer Relationship Specialty Start Date End Date Asia Wyman, AUDIOVISUAL PRODUCTION SPECIALIST PCP - General Nurse Practitioner 09/30/17 03/04/20 documented as of this encounter
--- OUTSIDE RECORDS SUMMARY | 2024-06-25 09:58 | XMS_ITS | Encounter Summary ---
Author Organization [facility] Healthcare Address [address] [place] [address] Care Team Providers Care Head Up Operator Helper Name Role Phone No, Physician Primary Care Provider [phone] Encounter Details Date Type Department Care Team (Late st Contact Info) Description 03/05/2020 Telephone [facility] Healthcare Occupatiuonal Health [address] [place] [address] Room 3420 (Third Floor) [place] [address] Nicole Kim RN Social History Tobacco Use Types Packs/Day Years Used Date Smoking Tobacco: Former Alcohol Use Standard Drinks/Week Comments No 0 (1 standard drink = 0.6 oz pur e alcohol) Comments No Sex and Gender Information Value Date Recorded Sex Assigned at Not on file Legal Sex Female 1:17 AM LEAD DIE MOLDER Gender Identity Not on file Sexual Orientation Not on file documented as of this encounter Miscellaneous Notes * Telephone Encounter - Nicole Kim RN - 03/05/2020 4:49 PM CDT COVID19 test order placed. Asymptomatic. [...] documented as of this encounter Care Teams Head Up Operator Helper Relationship Specialty Start Date End Date No, Physician PCP - General 03/05/20 04/03/20 documented as of this encounter
--- OUTSIDE RECORDS SUMMARY | 2024-06-25 10:00 | XMS_ITS | Encounter Summary ---
Author Organization [facility] Healthcare Address [address] [place] [address] Care Team Providers Care Nuclear Powerplant Mechanic Helper Name Role Phone Fernando Bryant DO Primary Care Provider [phone] Encounter Details Date Type Department Care Team (Late st Contact Info) Description 11/07/2009 11:02 AM CDT - 11/07/2009 11:59 PM CDT Hospital Encounter [facility] Fernando Bryant DO [address] [place] [address] Pain in soft tissues of limb Social History Tobacco Use Types Packs/Day Years Used Date Smoking Tobacco: Never Assessed Comments Unknown Sex and Gender Information Value Date Recorded Sex Assigned at Not on file Legal Sex Female 1:17 AM MEDICAL OFFICE MANAGER Gender Identity Not on file Sexual Orientation Not on file documented as of this encounter Plan of Treatment Not on file documented as of this encounter Visit Diagnoses Diagnosis Pain in soft tissues of limb documented in this encounter Care Teams Nuclear Powerplant Mechanic Helper Relationship Specialty Start Date End Date Fernando Bryant DO [address] [facility] [address] PCP - General 11/07/09 04/29/11 documented as of this encounter
--- OUTSIDE RECORDS SUMMARY | 2024-06-25 10:00 | XMS_ITS | Encounter Summary ---
Author Organization [facility] Healthcare Address [address] [place] [address] Care Team Providers Care Livestock Showman Name Role Phone Fernando Bryant DO Primary Care Provider [phone]- [phone] Encounter Details Date Type Department Care Team (Late st Contact Info) Description 06/12/2011 1:45 PM PYRIDINE OPERATOR - 06/12/2011 11:59 PM PYRIDINE OPERATOR Hospital Encounter [facility] Fernando Bryant DO [address] [place] [address] Social History Tobacco Use Types Packs/Day Years Used Date Smoking Tobacco: Never Assessed Comments Unknown Sex and Gender Information Value Date Recorded Sex Assigned at Not on file Legal Sex Female 1:17 AM PYRIDINE OPERATOR Gender Identity Not on file Sexual Orientation Not on file documented as of this encounter Plan of Treatment Not on file documented as of this encounter Visit Diagnoses Not on filedocumented in this encounter Care Teams Livestock Showman Relationship Specialty Start Date End Date Fernando Bryant DO [address] [facility] [place] [address] PCP - General 04/30/11 03/31/17 documented as of this encounter
--- OUTSIDE RECORDS SUMMARY | 2024-06-25 10:00 | XMS_ITS | Encounter Summary ---
Author Organization [facility] Healthcare Address [address] [place] [address] Care Team Providers Care Wiring Mechanic Name Role Phone Fernando Bryant DO Primary Care Provider [phone] Encounter Details Date Type Department Care Team (Late st Contact Info) Description 04/25/2010 9:26 PM CDT - 04/25/2010 11:59 PM CDT Hospital Encounter [facility]IN[facility] Disorder of kidney and ureter Social History Tobacco Use Types Packs/Day Years Used Date Smoking Tobacco: Never Assessed Comments Unknown Sex and Gender Information Value Date Recorded Sex Assigned at Not on file Legal Sex Female 1:17 AM REFINING ENGINEER Gender Identity Not on file Sexual Orientation Not on file documented as of this encounter Plan of Treatment Not on file documented as of this encounter Visit Diagnoses Diagnosis Disorder of kidney and ureter Unspecified disorder of kidney and ureter documented in this encounter Care Teams Wiring Mechanic Relationship Specialty Start Date End Date Fernando Bryant DO [address] [place] [address] PCP - General 11/07/09 04/29/11 documented as of this encounter
--- OUTSIDE RECORDS SUMMARY | 2024-06-25 10:00 | XMS_ITS | Encounter Summary ---
Author Organization [facility] Healthcare Address [address] [place] [address] Care Team Providers Care County Tax Assessor Name Role Phone Fernando Bryant DO Primary Care Provider [phone]- [phone] Encounter Details Date Type Department Care Team (Late st Contact Info) Description 07/01/2010 12:01 AM TEACHER INSTRUMENTAL - 07/01/2010 11:59 PM TEACHER INSTRUMENTAL Hospital Encounter [facility] Fernando Bryant DO [address] [place] [address] Social History Tobacco Use Types Packs/Day Years Used Date Smoking Tobacco: Never Assessed Comments Unknown Sex and Gender Information Value Date Recorded Sex Assigned at Not on file Legal Sex Female 1:17 AM TEACHER INSTRUMENTAL Gender Identity Not on file Sexual Orientation Not on file documented as of this encounter Plan of Treatment Not on file documented as of this encounter Visit Diagnoses Not on filedocumented in this encounter Care Teams County Tax Assessor Relationship Specialty Start Date End Date Fernando Bryant DO [address] [facility] [place] [address] PCP - General 11/07/09 04/29/11 documented as of this encounter
--- OUTSIDE RECORDS SUMMARY | 2024-06-25 10:00 | XMS_ITS | Encounter Summary ---
Author Organization [facility] Healthcare Address [address] [place] [address] Care Team Providers Care Wink Cutter Operator Name Role Phone Fernando Bryant DO Primary Care Provider [phone]- [phone] Encounter Details Date Type Department Care Team (Late st Contact Info) Description 09/03/2009 9:13 PM SCANNER OPERATOR - 09/03/2009 11:59 PM SCANNER OPERATOR Hospital Encounter [facility]INCON[facility] Myalgia and myositis; Routine general medical examination at a health care facility Social History Tobacco Use Types Packs/Day Years Used Date Smoking Tobacco: Never Assessed Comments Unknown Sex and Gender Information Value Date Recorded Sex Assigned at Not on file Legal Sex Female 1:17 AM SCANNER OPERATOR Gender Identity Not on file Sexual Orientation Not on file documented as of this encounter Plan of Treatment Not on file documented as of this encounter Visit Diagnoses Diagnosis Myalgia and myositis Unspecified myalgia and myositis Routine general medical examination at a health care facility documented in this encounter Care Teams Wink Cutter Operator Relationship Specialty Start Date End Date Fernando Bryant DO [address] [place] [address] PCP - General 09/03/09 11/06/09 documented as of this encounter
--- OUTSIDE RECORDS SUMMARY | 2024-06-25 10:07 | XMS_ITS | Encounter Summary ---
Author Organization [facility] Address [address] [place] [address] Care Team Providers Care Regulatory Administrator Name Role Phone Eliseo Lambert MD Primary Care Provider Erna Hooper MD Unavailable Kwesi Hill MD Unavailable [phone] Reason for Visit * Reason Comments Follow-up Pt has no concerns p t states she had a bladder/kidney infection, went to [facility] in [place] and pt states she will soon be getting a US done UTI Frequency Encounter Details Date Type Department Care Team (Late st Contact Info) Description 03/15/2023 11:45 AM CDT Office Visit [facility] Primary Care at [address] [place] [address] Eliseo Lambert MD [address] [place] [address] [address] [place], [place] [id number] Urinary frequency (Primary Dx); Psychophysiological insomnia; Moderate episode of recurrent major depressive disorder (HCC); Generalized anxiety disorder; Cystic acne vulgaris; CKD (chronic kidney disease) stage 2, GFR 60-89 ml/min; Pure hypercholesterolemia ; Gastroesophageal reflux disease, unspecified whether esophagitis present; Encounter for screening mammogram for malignant neoplasm of breast; Screen for colon cancer Social History Tobacco [...] on file 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 Gender Identity Not on file Sexual Orientation Not on file Occupation Industry Job Start Date Job End Date [employer] Not on file Not on file Not on file documented as of this encounter Last Filed Vital Signs Vital Sign Reading Time Taken Comments Blood Pressure 108/72 03/15/2023 12:02 PM CDT Pulse 102 03/15/2023 12:02 PM CDT Temperature 37.3 ??C (99.1 ??F) 03/15/2023 12:02 PM C DT Respiratory Rate - - Oxygen Saturation 99% 03/15/2023 12:02 PM CDT Inhaled Oxygen Concentration - - Weight 53.5 kg (118 lb) 03/15/2023 12:02 PM CDT Height 154.9 cm (5' 1 ) 03/15/2023 12:02 PM CDT Body Mass Index 22.3 03/15/2023 12:02 PM CDT documented in this encounter Progress Notes * Eliseo Lambert MD - 03/15/2023 11:45 AM CDT Images from the original note were not included. Assessment/Plan Diagnoses and all orders for this visit: Urinary frequency (Primary) Comments: Wanted to have it examined, point of care urinalysis shows no abnormal findings reassuring result. Orders: - POCT urinalysis dipstick Psychophysiological insomnia Assessment & Plan: - chronic, not at goal - no longer on trazodone 50 mg nightly PRN only, di dnot like medication she was on - follows and managed with psychiatry - Dr. Hill - continue with managed from psychiatry Moderate episode of recurrent major depressive disorder [...] Results Component Value Date TSH 3.21 05/06/2022 Generalized anxiety disorder Assessment & Plan: - [...] Value Date TSH 3.21 05/06/2022 Orders: - TSH reflex to free T4; Future Cystic acne vulgaris Assessment & Plan: - chronic, well controlled - used to follow with dermatology - she has used isotretinoin before - currently on Spirinolactone 50 mg daily - aware that medication can lower BP with the medication - continue current therapy CKD (chronic kidney disease) stage 2, GFR 60-89 ml/min Assessment & Plan: - chronic condition, stable - has family [...] 11/01/2022 ALT 15 11/01/2022 PHOS 3.5 12/02/2022 Orders: - Renal function panel; Future - CBC with auto differential; Future Pure hypercholesterolemia Assessment & Plan: - chronic, controlled - most recent LDL [...] (H) 01/06/2021 Orders: - Lipid panel; Future Gastroesophageal reflux disease, unspecified whether esophagitis present Assessment & Plan: - chronic, controlled - no longer on Pantoprazole DR 40 mg daily, told to stop using it by 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 Encounter for screening mammogram for malignant neoplasm of breast Comments: Past due, has order already in place, reminder provided to completed as soon as possible Screen for colon cancer Comments: Past due, prior Cologuard kit was never completed. New kit sent and asked her to completed as soon as possible Orders: - Stool DNA - Cologuard; Future Return in about 6 months (around 2023). Subjective/Objective Chief Complaint Patient presents with Follow-up Pt has no concerns pt states she had a bladder/kidney infection, went to in [place] and pt states she will soon be getting a US done UTI Frequency UTI Pertinent negatives include no chills, nausea or vomiting. Kristy Kapoor is a 47 y.o. female who is here for follow-up of chronic health conditions. Patient has establish care with Nephrology on 12/02/2022 per patient request. She was told to follow up once a year per nephrology. Sh ewas told to get a non- emergent imaging onher kidneys - US kidney complete that has been ordered. Patient was seen at the convenient Care location 12/15/2022 for urine tract infection for which she was prescribed antibiotic. Urine culture came back with pansensitive E coli. Patient is due for breast cancer screening mammogram as well as colon cancer screening testing. There is an order for bilateral screening mammogram that was placed on October of 2022 that needs to be done. Patient continues to follow-up with Dr. Hill who is her psychiatrist for her mental health care needs. POC UA done in office had no abnormal findings. Please see the assessment and plan section [...] Review of Systems Constitutional: Negative for chills, fatigue, fever and unexpected weight change. Respiratory: Negative for cough and shortness of breath. Cardiovascular: Negative for chest pain. Gastrointestinal: Positive for constipation. Negative for abdominal pain (less), anal bleeding, diarrhea (less), nausea and vomiting. Genitourinary: Negative for pelvic pain. Musculoskeletal: Negative for gait problem. Psychiatric/Behavioral: Positive for sleep disturbance. Negative for dysphoric mood (stable). The patient is not nervous/anxious (stable). Vitals: 03/15/23 1202 BP: 108/72 BP Location: Left arm Patient Position: Sitting Pulse: 102 Temp: 37.3 ??C (99.1 ??F) SpO2: 99% Weight: 53.5 kg (118 lb) Height: 154.9 cm (5' 1 ) Wt Readings from Last 3 Encounters: 03/15/23 53.5 kg (118 lb) 12/15/22 54.4 kg (120 lb) 12/02/22 53.8 kg (118 lb 9.6 oz) Body mass index is 22.3 kg/m??. Physical Exam Vitals reviewed. Constitutional: General: She is not in acute distress. Appearance: She is not ill-appearing. Comments: Pleasant Cardiovascular: Rate and Rhythm: Normal rate. Heart sounds: No murmur heard. Pulmonary: Effort: Pulmonary effort is normal. No respiratory distress. Breath sounds: No wheezing. Musculoskeletal: Right lower leg: No edema. Left lower leg: No edema. Neurological: General: No focal deficit present. Mental Status: She is alert and oriented to person, place, and time. Mental status is at baseline. Gait: Gait normal. Psychiatric: Mood and Affect: Mood normal. Behavior: Behavior normal. Thought Content: Thought content normal. Eliseo Lambert MD March 15, 2023 1:06 PM Please note: Voice recognition software [employer]case-[employer] was used dictate and transcribe this document. Spinner Iron variances may occur. Despite proofreading, typographical errors may occur. j documented in this encounter Miscellaneous Notes * Result Encounter Note - Eliseo Lambert MD - 04/09/2023 11:17 AM CDT Please note that your Cologuard stool test for screening for colon cancer came back negative. This means there was no DNA found in your stool that would have been concerning for a colon cancer. The recommendation is to have a repeat Cologuard stool test in 3 years following a negative Cologuard test result. * Assessment & Plan Note - Eliseo Lambert MD - 03/15/2023 12:35 PM CDT Associated Problem(s): Gastroesophageal reflux disease - chronic, controlled - no longer on Pantoprazole DR 40 mg daily, told to stop using it by her grove superintendent - now using TUMS as needed only [...] Plan Note - Eliseo Lambert MD - 03/15/2023 12:26 PM CDT Associated Problem(s): Alternating constipation and diarrhea - chronic condition, improved - since she had cholecystectomy - worse with fatty foods - recently had a prolonged diarrhea that just resolved on its own - reports history of IBS in multiple family members - referral placed to GI in the past, has never had a colonoscopy - symptoms improved since she started taking probiotic supplement OTC * Assessment & Plan Note - Eliseo Lambert MD - 03/15/2023 12:09 PM CDT Associated Problem(s): Pure hypercholesterolemia - chronic, controlled - most recent LDL [...] LDLCALC 74 09/26/2021 LDLCALC 173 (H) 01/06/2021 * Assessment & Plan Note - Eliseo Lambert MD - 03/15/2023 12:08 PM CDT Associated Problem(s): CKD (chronic kidney disease) stage 2, GFR 60-89 ml/min - chronic condition, stable - has family [...] 11/01/2022 ALT 15 11/01/2022 PHOS 3.5 12/02/2022 * Assessment & Plan Note - Eliseo Lambert MD - 03/15/2023 12:08 PM CDT Associated Problem(s): Cystic acne vulgaris - chronic, well controlled - used to follow with dermatology - she has used isotretinoin before - currently on Spirinolactone 50 mg daily - aware that medication can lower BP with the medication - continue current therapy * Assessment & Plan Note - Eliseo Lambert MD - 03/15/2023 12:08 PM CDT Associated Problem(s): Generalized anxiety disorder [...] Results Component Value Date TSH 3.21 05/06/2022 * Assessment & Plan Note - Eliseo Lambert MD - 03/15/2023 12:08 PM CDT Associated Problem(s): Moderate episode of [...] Results Component Value Date TSH 3.21 05/06/2022 * Assessment & Plan Note - Eliseo Lambert MD - 03/15/2023 12:08 PM CDT Associated Problem(s): Psychophysiological insomnia - chronic, not at goal - no longer on trazodone 50 mg nightly PRN only, di dnot like medication she was on - follows and managed with psychiatry - Dr. Hill - continue with managed from psychiatry documented in this encounter Plan of Treatment Not on file documented as of this encounter Procedures Procedure Name Priority Date/Time Associated Diagnosis Comments THYROID FUNCTION CASCADE Routine 04/23/2023 7:08 AM CDT Generalized anxiety disorder CBC WITH AUTO DIFFERENTIAL Routine 04/23/2023 7:08 AM CDT CKD (chronic kidney disease) stage 2, GFR 60-89 ml/min RENAL FUNCTION PANEL Routine 04/23/2023 7:08 AM CDT CKD (chronic kidney disease) stage 2, GFR 60-89 ml/min LIPID PANEL Routine 04/23/2023 7:08 AM CDT Pure hypercholesterolemia STOOL DNA ? COLOGUARD Routine 03/30/2023 9:30 AM CDT Screen for colon cancer POCT URINALYSIS DIPSTICK Routine 03/15/2023 1:00 PM CDT Urinary frequency documented in this encounter Results * (ABNORMAL) CBC with auto differential (04/23/2023 7:08 AM CDT) Pathologist [facility] WBC 6.0 3.8 - 10.8 Thousand/u L [facility] RBC, POC 3.86 3.80 - 5.10 Million/uL [facility] Hgb 12.4 11.7 - 15.5 g/dL [facility] Hct 39.0 35.0 - 45.0 % [facility] MCV 101.0(H) 80.0 - 100.0 fL [facility] MCH 32.1 27.0 - 33.0 pg [facility] MCHC 31.8(L) 32.0 - 36.0 g/dL [facility] Rdw 12.3 11.0 - 15.0 % [facility] Platelets 248 140 - 400 Thousand/u L [facility] MPV 10.8 7.5 - 12.5 fL [facility] Neutrophils, abs 3,294 1,500 - 7,800 cells/uL [facility] Lymphocytes, abs 2,214 850 - 3,900 cells/uL [facility] Monocyte abs 252 200 - 950 cells/uL [facility] Eosinophils, abs 162 15 - 500 cells/uL [facility] Basophils, abs 78 0 - 200 cells/uL [facility] Neutrophils 54.9 % [facility] Lymphocyte pct 36.9 % [facility] Monocytes 4.2 % [facility] Eosinophils 2.7 % [facility] Basophils 1.3 % [facility] Blood 04/23/2023 7:08 AM CDT 04/23/2023 7:09 AM CDT Narrative [facility] - 04/24/2023 1:48 PM CDT FASTING:YES FASTING: YES Eliseo Lambert MD LAB BLOOD ORDERABLES Fi nal Result Performing Organization Address City/[facility] Co de Phone Number [facility] [address] [place] [address] * TSH reflex to free T4 (04/23/2023 7:08 AM CDT) TSH 3.38 mIU/L [facility] Comment: ?Reference Range ?> or = 20 Years ??0.40-4.50 ? Ranges ?First trimester ?0.26-2.66 ?Second trimester ?? 0.55-2.73 ?Third trimester ?0.43-2.91 Blood 04/23/2023 7:08 AM CDT 04/23/2023 7:09 AM CDT Narrative [facility] - 04/24/2023 1:48 PM CDT FASTING:YES FASTING: YES Eliseo Lambert MD LAB BLOOD ORDERABLES Fi nal Result Performing Organization Address City/[facility] Co de Phone Number [facility] [address] [place] [address] * (ABNORMAL) Renal function panel (04/23/2023 7:08 AM CDT) Glucose 95 65 - 99 mg/dL [facility] Comment: ? Fasting reference interval BUN 15 7 - 25 mg/dL [facility] Creatinine 1.09(H) 0.50 - 0.99 mg/dL [facility] eGFR 62 > OR = 60 mL/min/1.7 3m2 [facility] SchraderWenwoRaghu Manzano BUN/creat ratio 14 6 - 22 (calc) [facility] Sodium 138 135 - 146 mmol/L [facility] Potassium, pl 4.3 3.5 - 5.3 mmol/L [facility] Chloride 102 98 - 110 mmol/L [facility] GeoramaRaghu Manzano CO2 31 20 - 32 mmol/L [facility]ag[facility] Man[facility] Calcium 9.6 8.6 - 10.2 mg/dL [facility]aghu Manzano Phosphorus, sr 4.0 2.5 - 4.5 mg/dL German[facility] GeoramaRaghu Manzano Albumin 4.5 3.6 - 5.1 g/dL HRsoft[facility]aghu Manzano Blood 04/23/2023 7:08 AM CDT 04/23/2023 7:09 AM CDT Narrative [facility] - 04/24/2023 1:48 PM CDT FASTING:YES FASTING: YES Eliseo Lambert MD LAB BLOOD ORDERABLES Fi nal Result [facility] [address] [place] [address] * Lipid panel (04/23/2023 7:08 AM CDT) Cholesterol 160 <200 mg/dL [facility] GeoramaRaghu Manzano HDL 69 > OR = 50 mg/dL [facility] Triglycerides 75 <150 mg/dL [facility]or[facility]ag[facility] LDL 75 mg/dL (calc) [facility] GeoramaRaghu Manzano Comment: Reference range: <100 Desirable range <100 mg/dL for primary prevention; ?? <70 mg/dL for patients with CHD or diabetic patients with > or = 2 CHD risk factors. LDL-C is now calculated using the Dada calculation, which is a validated novel method providing better accuracy than the Friedewald equation in the estimation of LDL-C. Guille CHRIS et al. NIYA. 2013;310(19): 0132-5943 (http://education.EasyCopay.Marketo/faq/DIG623) Chol/HDL ratio 2.3 <5.0 (calc) Ti Knight MacirnaRichelleRaghu steinberg Jose [facility] Non-HDL, (LDL+VLDL) 91 <130 mg/dL (calc) [facility] steinberg Jose Juan Comment: For patients with diabetes plus 1 major ASCVD risk factor, treating to a non-HDL-C goal of <100 mg/dL (LDL-C of <70 mg/dL) is considered a therapeutic option. Blood 04/23/2023 7:08 AM CDT 04/23/2023 7:09 AM CDT [facility] - 04/24/2023 1:48 PM CDT FASTING:YES FASTING: YES us Eliseo Lambert MD LAB BLOOD ORDERABLES Fi nal Result [facility] [address] [place] [address] * Stool DNA - Cologuard (03/30/2023 9:30 AM CDT) Stool DNA - Cologuard Negative Negative [employer] (CLIA #:[id number]) Comment: NEGATIVE TEST RESULT. A negative Cologuard [...] cancer. ??Following a negative Cologuard result, the [place] Cancer Society and U.S. Multi-Society Task Force screening guidelines recommend a Cologuard re-screening interval of 3 years. References: [place] [employer] Guideline for Colorectal Cancer Screening: https://www.cancer.org/cancer/lgxpn-dyykju-oajamh/dccaeqzgh-hauxknrkc-eswelgb/ac s-rec ommendations.html.; Emmanuel DK, Brendan CR, Yarelis NgK, Colorectal Cancer Screening: Recommendations for Physicians and Patients from the U.S. Multi-Society Task Force on Colorectal Cancer Screening , Am J Gastroenterology 2017; 112:5047-0739. TEST DESCRIPTION: Composite algorithmic analysis of stool [...] were screened with both Cologuard and colonoscopy. (Bere Valle al, N Engl J Med 2014;370(14):4605-1644.) Cologuard may produce a false negative or false positive result (no colorectal cancer or precancerous polyp present at colonoscopy follow up). A negative Cologuard test result does not guarantee the absence of CRC or advanced adenoma (pre-cancer). The current Cologuard screening interval is every 3 years. ([place] [employer] Society and U.S. Multi-Society Task Force). Cologuard performance data in a 10,000 patient pivotal study using colonoscopy as the reference method can be accessed at the following location: www.BeInSync.Marketo/results. Additional description of the Cologuard test process, warnings and precautions can be found at www.colConnectbrightrd.com. Stool 03/30/2023 9:30 AM CDT 04/01/2023 1:51 AM CDT Eliseo Lambert MD LAB BODY FLUIDS AND STO OLS ORDERABLES Final Result [employer] (CLIA #:[id number]) [place] [address] * POCT urinalysis dipstick (03/15/2023 1:00 PM CDT) Color, Urine, POC Dark Yellow Clarity, ur, POC Clear Clear Glucose, ur, POC Negative Negative MG/DL Bilirubin, ur, POC Negative Negative, Small, Moderate, Large Ketones, ur, POC Negative Negative Specific [place], POC 1.025 1.003 - 1.030 Blood, ur, POC Negative Negative pH, ur, POC 6.0 5.0 - 8.0 Protein, ur, POC Negative Negative Urobilinogen, urine, POC 0.2 0.2 - 1.0 mg/dL Nitrite, ur, POC Negative Negative Leukocytes, ur, POC Negative Negative Lot Number [id number] Urine 03/15/2023 1:00 PM CDT Eliseo Lambert MD POINT OF CARE TEST MIKE ROMERO Final Result documented in this encounter Visit Diagnoses Diagnosis Urinary frequency- Primary Psychophysiological insomnia Persistent disorder of initiating or maintaining sleep Moderate episode of recurrent major depressive disorder (HCC) Generalized anxiety disorder Cystic acne vulgaris Other acne CKD (chronic kidney disease) stage 2, GFR 60-89 ml/min Chronic kidney disease, Stage II (mild) Pure hypercholesterolemia Gastroesophageal reflux disease, unspecified whether esophagitis present Encounter for screening mammogram for malignant neoplasm of breast Screen for colon cancer Special screening for malignant neoplasms, colon documented in this encounter Discontinued Medications Medication Sig Discontinue Reason Start Date End Da te cholestyramine (QUESTRAN) 4 gram powderIndications:Post-c holecystectomy syndrome Take 1 packet (4 g total) by mouth 3 (three) times a day with meals 11/02/2022 03/15/2023 cyclobenzaprine (FLEXERIL) 10 mg tabletIndications:Muscle Spasm Take 1 tablet (10 mg total) by mouth 2 (two) times a day as needed for muscle spasms 11/15/2020 03/15/[address] (PROTONIX) 40 mg EC tabletIndications:Abdomi nal pain TAKE ONE TABLET BY MOUTH EVERY DAY 09/01/2022 03/15/2023 documented as of this encounter Care Teams Regulatory Administrator Relationship Specialty Start Date End Date Eliseo Lambert MD PCP - General Family Medicine 05/21/20 06/29/23 Erna Hooper MD [address] [place] [address] Referring Physician Nephrology 12/21/22 Kwesi Hill MD [address] [place] [address] [address] [place] [address] Consulting Physician Psychiatry 03/15/23 documented as of this encounter
--- OUTSIDE RECORDS SUMMARY | 2024-06-25 10:10 | XMS_ITS | Encounter Summary ---
Author Organization 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 ER FEEDER documented in this encounter Plan of Treatment Not on file documented as of this encounter Procedures Procedure Name Priority Date/Time Associated Diagnosis Comments EGFR Routine 05/06/2022 12:56 PM PLANER FEEDER Generalized anxiety disorder DIFFERENTIAL AUTO Routine 05/06/2022 12:56 PM PLANER FEEDER Generalized anxiety disorder THYROID FUNCTION CASCADE Routine 05/06/2022 12:56 PM PLANER FEEDER Generalized anxiety disorder CBC WITH AUTO DIFFERENTIAL Routine 05/06/2022 12:56 PM PLANER FEEDER Generalized anxiety disorder VITAMIN D 25 HYDROXY Routine 05/06/2022 12:56 PM PLANER FEEDER Vitamin D deficiency LIPID PANEL Routine 05/06/2022 12:56 PM PLANER FEEDER Pure hypercholesterolemia COMPREHENSIVE METABOLIC PANEL Routine 05/06/2022 12:56 PM PLANER FEEDER Generalized anxiety disorder documented in this encounter Results * eGFR (05/06/2022 12:56 PM PLANER FEEDER) eGFR 78 mL/min/1. 73 m2 [facility] ([place]) Comment: [...] interpretive data was last reviewed 2021. Blood 05/06/2022 12:5 6 PM PLANER FEEDER 05/06/2022 3:33 PM PLANER FEEDER us Eliseo Lambert MD LAB BLOOD ORDERABLES Fi nal Result [facility] ([place]) [address] [facility] [place] [address] * Differential, auto (05/06/2022 12:56 PM PLANER FEEDER) Neutrophil abs 4.2 1.7 - 6.5 K/cumm [facility] ([place]) Imm gran abs 0.0 0.0 - 0.1 K/cumm [facility] ([place]) Lymphocyte abs 2.1 0.8 - 3.3 K/cumm [facility] ([place]) Monocyte abs 0.3 0.2 - 0.8 K/cumm [facility] ([place]) Eosinophil abs 0.1 0.0 - 0.5 K/cumm [facility] ([place]) Basophil abs 0.1 0.0 - 0.1 K/cumm [facility] ([place]) Neutrophil pct 61.8 % [facility] ([place]) Comment: Interpretive Data Percent cell count reference ranges are not reported, since discordance with absolute values may lead to misinterpretation of CBC data. Current Interpretive Data was last revised on 2017. Imm gran pct 0.1 % [facility] ([place]) Comment: Interpretive Data Percent cell count reference ranges are not reported, since discordance with absolute values may lead to misinterpretation of CBC data. Current Interpretive Data was last revised on 2017. Lymphocyte pct 30.6 % [facility] ([place]) Comment: Interpretive Data Percent cell count reference ranges are not reported, since discordance with absolute values may lead to misinterpretation of CBC data. Current Interpretive Data was last revised on 2017. Monocyte pct 4.8 % [facility] ([place]) Comment: Interpretive Data Percent cell count reference ranges are not reported, since discordance with absolute values may lead to misinterpretation of CBC data. Current Interpretive Data was last revised on 2017. Eosinophil pct 1.8 % [facility] ([place]) Comment: Interpretive Data Percent cell count reference ranges are not reported, since discordance with absolute values may lead to misinterpretation of CBC data. Current Interpretive Data was last revised on 2017. Basophil pct 0.9 % [facility] ([place]) Comment: Interpretive Data Percent cell count reference ranges are not reported, since discordance with absolute values may lead to misinterpretation of CBC data. Current Interpretive Data was last revised on 2017. Blood 05/06/2022 12:5 6 PM PLANER FEEDER 05/06/2022 3:33 PM PLANER FEEDER us Eliseo Lambert MD LAB BLOOD ORDERABLES Fi nal Result [facility] ([place]) [address] [facility] [place] [address] * (ABNORMAL) CBC with auto differential (05/06/2022 12:56 PM PLANER FEEDER) WBC 6.8 3.8 - 9.9 K/cumm [facility] [...] 35.7 g/dL [facility] ([place]) RDW CV 12.5 11.1 - 14.9 % [facility] ([place]) RDW SD 44.9 35.7 - 48.1 fL [facility] ([place]) NRBC abs 0.00 0.00 - 0.01 K/cumm [facility] Blood 05/06/2022 12:5 6 PM PLANER FEEDER 05/06/2022 3:33 PM PLANER FEEDER us Eliseo Lambert MD LAB BLOOD ORDERABLES Fi nal Result [facility] ([place]) [address] [facility] [place] [address] * Comprehensive metabolic panel (05/06/2022 12:56 PM PLANER FEEDER) Sodium 141 135 - 145 mmol/L [facility] [...] [facility] ([place]) Blood 05/06/2022 12:5 6 PM PLANER FEEDER 05/06/2022 3:33 PM PLANER FEEDER us Eliseo Lambert MD LAB BLOOD ORDERABLES Fi nal Result [facility] ([place]) [address] [facility] [place] [address] * Lipid panel (05/06/2022 12:56 PM PLANER FEEDER) Cholesterol 199 30 - 199 mg/dL [facility] ([place]) Comment: Interpretive Data [...] revised on 2018. Triglycerides 89 <=149 mg/dL [facility] ([place]) Comment: Interpretive Data Ages < [...] revised on 2018. Non-HDL Cholesterol 128 mg/dL [facility] ([place]) Comment: Interpretive Data Ages < or = [...] last revised on 2018. Chol/HDL ratio 3 [facility] ([place]) Blood 05/06/2022 12:5 6 PM PLANER FEEDER 05/06/2022 3:33 PM PLANER FEEDER Eliseo Lambert MD LAB BLOOD ORDERABLES Fi nal Result Performing Organization Address City/[facility]/ZIP Co de Phone Number [facility] ([place]) [address] [facility] [address] * TSH reflex to free T4 (05/06/2022 12:56 PM PLANER FEEDER) Pathologist [facility] TSH 3.21 0.30 - 4.20 mcIUnit/mL [facility] ([place]) Blood 05/06/2022 12:5 6 PM PLANER FEEDER 05/06/2022 3:33 PM PLANER FEEDER Eliseo Lambert MD LAB BLOOD ORDERABLES Fi nal Result [facility] ([place]) 1 [facility] [place] [address] * Vitamin D 25 hydroxy (05/06/2022 12:56 PM PLANER FEEDER) Vitamin D 25-OH 80 30 - 80 ng/mL [facility] ([place]) Blood 05/06/2022 12:5 6 PM PLANER FEEDER 05/06/2022 3:33 PM PLANER FEEDER us Eliseo Lambert MD LAB BLOOD ORDERABLES Fi nal Result [facility] ([place]) [address] [facility] [place] [address] documented in this encounter Visit Diagnoses Diagnosis Vitamin D deficiency Generalized anxiety disorder Pure hypercholesterolemia documented in this encounter Care Teams Physician'S Assistant Relationship Specialty Start Date End Date Eliseo Lambert MD PCP - General Family Medicine 05/21/20 06/29/23 documented as of this encounter
--- OUTSIDE RECORDS SUMMARY | 2024-06-25 10:11 | XMS_ITS | Encounter Summary ---
Author Organization [facility] Medical Group Address [address] [place] [address] Care Team Providers Care Center Specialists Name Role Phone Rhys Alonso MD Primary Care Provider Reason for Referral * Diagnostic Imaging (Routine) - Closed Specialty Diagnoses / Procedures Referred By Mirlande t Referred To Contact Diagnoses Encounter for screening mammogram for malignant neoplasm of breast Procedures SCREENING MAMMOGRAM BILATERAL W Rhys Monk MD Phone: tel: fax: [facility] [address] [place] [address] Referral ID Status Reason Start Date Expiration Date Visits Re quested Visits Authorized [id number] Closed 06/02/2021 07/02/2022 1 1 TERRAIN VEHICLE TECHNICIAN Reason for Visit * Reason Comments Neck Pain 2 mo fu Encounter Details Date Type Department Care Team (Late st Contact Info) Description 06/02/2021 8:15 AM ALL TERRAIN VEHICLE TECHNICIAN Office Visit [facility] [address] [facility] [address] [place] [id number] Rhys Alonso MD [address] [facility] [address] [place] [address] Cervical strain, subsequent encounter (Primary Dx); BMI 22.0-22.9, adult; Pure hypercholesterolemia ; Generalized anxiety disorder; Cystic acne vulgaris; Vitamin D deficiency; Major depressive disorder with single episode, in partial remission (HCC); Moderate episode of recurrent major depressive disorder (HCC); Encounter for screening mammogram for malignant neoplasm [...] on file Legal Sex Female 1:17 AM ALL TERRAIN VEHICLE TECHNICIAN Gender Identity Not on file Sexual Orientation Not on file Occupation Industry Job Start Date Job End Date [employer] Not on file Not on file Not on file documented as of this encounter Last Filed Vital Signs Vital Sign Reading Time Taken Comments Blood Pressure 104/80 06/02/2021 8:04 AM ALL TERRAIN VEHICLE TECHNICIAN Pulse 58 06/02/2021 8:04 AM ALL TERRAIN VEHICLE TECHNICIAN Temperature - - Respiratory Rate - - Oxygen Saturation 96% 06/02/2021 8:04 AM ALL TERRAIN VEHICLE TECHNICIAN Inhaled Oxygen Concentration - - Weight 55.9 kg (123 lb 4.8 oz) 06/02/2021 8:04 A M ALL TERRAIN VEHICLE TECHNICIAN Height 156.2 cm (5' 1.5 ) 06/02/2021 8:04 AM ALL TERRAIN VEHICLE TECHNICIAN Body Mass Index 22.92 06/02/2021 8:04 AM ALL TERRAIN VEHICLE TECHNICIAN documented in this encounter Progress Notes * Rhys Alonso MD - 06/02/2021 8:15 AM CST Images from the original note were not included. Assessment/Plan Diagnoses and all orders for this visit: Cervical strain, subsequent encounter (Primary) Assessment & Plan: - chronic, since injury at work several [...] with light duty for next 6 weeks Orders: - Ambulatory referral order to Physical Therapy -; Future BMI 22.0-22.9, adult Pure hypercholesterolemia Assessment & Plan: - chronic, not well controlled - most recent LDL as shown below, worsening - she was started Atorvastatin 20 mg 03/27/21 but only started taking medication 1 weeka go - recheck Lipid panel in 3 months - most recent LDL as shown below Lab Results Component Value Date LDLCALC 173 (H) 01/06/2021 Orders: - Comprehensive metabolic panel; Future Generalized anxiety disorder Assessment & Plan: - chronic history, worsening - follows with psychiatry, Dr. Hill - anxiety is not well controlled - depression is not well controlled - has coexisting anxiety, on Klonopin 0.5mg BID PRN only - she does not take Trazodone 50 mg nightly - she has Tried Lexparo, Citalopram, Sertraline, - recommend discussing with psychiatry for changes in medications Cystic acne vulgaris Assessment & Plan: - chronic, well controlled - used to follow with dermatology - she has used isotretinoin before - she understands the risks of lowering BP with the medication - currently on Spirinolactone 50 mg daily - continue current therapy Vitamin D deficiency Assessment & Plan: - chronic, improved - Noted on 08/2020 - Vit D Level 17 --> 28 - improved control since last time - completed weekly high dose vitamin D - taking low dose daily vitamin D supplementation - check levels prior to next visit, order placed Orders: - Vitamin D 25 hydroxy; Future Major depressive disorder with single episode, in partial remission (HCC) Assessment & Plan: - chronic history, worsening - follows with psychiatry, Dr. Hill - anxiety is not well controlled - depression is not well controlled - has coexisting anxiety, on Klonopin 0.5mg PRN only - she does not take Trazodone 50 mg nightly - she has Tried Lexparo, Citalopram, Sertraline, - recommend discussing with psychiatry for changes in medications Orders: - TSH reflex to free T4; Future Moderate episode of recurrent major depressive disorder (HCC) Assessment & Plan: - chronic history, worsening - follows with psychiatry, Dr. Hill - anxiety is not well controlled - depression is not well controlled - has coexisting anxiety, on Klonopin 0.5mg PRN only - she does not take Trazodone 50 mg nightly - she has Tried Lexparo, Citalopram, Sertraline, - recommend discussing with psychiatry for changes in medications Encounter for screening mammogram for malignant neoplasm of breast - SCREENING MAMMOGRAM BILATERAL W MARIVEL; Future Return in about 4 months (around 10/01/2021). Subjective/Objective Chief Complaint Patient presents with ??? Neck Pain 2 mo fu HPI Kristy Kapoor is a 45 y.o. female who is here for neck pain, anxiety, depression, hyperlipidemia,a cne. Following with Psychiatry, Dr. Hill. Still has anxiety and depression. Currently on Clonazepam 0.5mg BID - she does not take it regularly, wellbutrin XL 300 mg daily. Shedoes not take the Trazodone as it makes her very sleepy and she has an 8 year old child that she wants to be able to wake up if she has too. Discussed to talk with psychiatry about changes in medications. She is on Vitamin D supplementation, she is now aware of the dose she takes. She has been compliant with cholesterol medication. She only picked it up about a week ago. So too soon to recheck it. She is on Spirolactone 50 mg daily for cystic acne which has been working well for her. We will need to check electrolytes. NSAIDs cause her abdominal pain/discomfort so is not taking one frequently. She is due for breast cancer screening mammogram. Order will be placed. PHQ9 - Depression Screening tool questionnaire Over [...] or Staying Asleep, or Sleeping too Much: More than half the days Feeling Tired or Having Little Energy: Several days Poor Appetite or Overeating: Nearly every day Feeling Bad About Yourself - or That You are a Failure or Have Let Yourself or Your Family Down: Nearly every day Trouble Concentrating on Things, Such as Reading [...] Way: Not at all PHQ-9 Total Score: 19 If you checked off any problems, how difficult have these problems made it for you to do your work,take care of things at home, or get along with other people?: Very difficult Interpretation of PHQ9 Total Score 1-4 = Minimal depression 5-9 = Mild depression 10-14 = Moderate depression 15-19 = Moderately severe depression 20-27 = Severe depression Patient Care Team: Rhys Alonso MD as PCP - General (Family Medicine) [...] appetite change, fatigue and unexpected weight change. HENT: Negative for trouble swallowing. Respiratory: Negative for cough, shortness of breath and wheezing. Cardiovascular: Negative for chest pain and palpitations. Gastrointestinal: Positive for constipation (alternating), diarrhea (alternating) and nausea. Negative for abdominal pain, blood in stool and vomiting. Musculoskeletal: Positive for neck pain. Negative for gait problem. Skin: Negative for rash. Neurological: Positive for headaches. Negative for tremors, seizures and syncope. Psychiatric/Behavioral: Positive for dysphoric mood and sleep disturbance. Negative for agitation, behavioral problems, confusion, decreased concentration, hallucinations, self-injury and suicidal ideas. The patient is nervous/anxious. The patient is not hyperactive. Vitals: 06/02/21 0804 BP: 104/80 BP Location: Left arm Patient Position: Sitting Pulse: 58 SpO2: 96% Weight: 55.9 kg (123 lb 4.8 oz) Height: 156.2 cm (5' 1.5 ) Wt Readings from Last 3 Encounters: 06/02/21 55.9 kg (123 lb 4.8 oz) 04/17/21 57 kg (125 lb 9.6 oz) 03/27/21 55.8 kg (123 lb 1.6 oz) Body mass index is 22.92 kg/m??. Physical Exam Vitals reviewed. Constitutional: General: She is not in acute distress. Appearance: Normal appearance. She is not ill-appearing, toxic-appearing or diaphoretic. HENT: Head: Normocephalic and atraumatic. Eyes: Extraocular Movements: Extraocular movements intact. Cardiovascular: Rate and Rhythm: Normal rate. Pulses: [...] time. Mental status is at baseline. Psychiatric: Attention and Perception: Attention normal. She is attentive. She does not perceive auditory or visual hallucinations. Mood and Affect: Mood is depressed. Mood is not anxious or elated. Affect is not labile, blunt, [...] normal. Judgment is not impulsive or inappropriate. Rhys Alonso MD June 02, 2021 10:19 AM Please note: Voice recognition software [employer] Direct was used dictate and transcribe this document. Platform Supervisor variances may occur. Despite proofreading, typographical errors may occur. TERRAIN VEHICLE TECHNICIAN documented in this encounter Miscellaneous Notes * Assessment & Plan Note - Rhys Alonso MD - 06/02/2021 10:15 AM ALL TERRAIN VEHICLE TECHNICIAN Associated Problem(s): Cervical strain, subsequent encounter (Resolved 02/11/2022) - chronic, since injury at work several [...] with light duty for next 6 weeks TERRAIN VEHICLE TECHNICIAN * Assessment & Plan Note - Rhys Alonso MD - 06/02/2021 8:46 AM ALL TERRAIN VEHICLE TECHNICIAN Associated Problem(s): Generalized anxiety disorder - chronic history, worsening - follows with psychiatry, Dr. Hill - anxiety is not well controlled - depression is not well controlled - has coexisting anxiety, on Klonopin 0.5mg BID PRN only - she does not take Trazodone 50 mg nightly - she has Tried Lexparo, Citalopram, Sertraline, - recommend discussing with psychiatry for changes in medications TERRAIN VEHICLE TECHNICIAN * Assessment & Plan Note - Rhys Alonso MD - 06/02/2021 8:43 AM ALL TERRAIN VEHICLE TECHNICIAN Associated Problem(s): Moderate episode of recurrent major depressive disorder (HCC) - chronic history, worsening - follows with psychiatry, Dr. Hill - anxiety is not well controlled - depression is not well controlled - has coexisting anxiety, on Klonopin 0.5mg PRN only - she does not take Trazodone 50 mg nightly - she has Tried Lexparo, Citalopram, Sertraline, - recommend discussing with psychiatry for changes in medications TERRAIN VEHICLE TECHNICIAN * Assessment & Plan Note - Rhys Alonso MD - 06/02/2021 8:40 AM ALL TERRAIN VEHICLE TECHNICIAN Associated Problem(s): Cystic acne vulgaris - chronic, well controlled - used to follow with dermatology - she has used isotretinoin before - she understands the risks of lowering BP with the medication - currently on Spirinolactone 50 mg daily - continue current therapy TERRAIN VEHICLE TECHNICIAN * Assessment & Plan Note - Rhys Alonso MD - 06/02/2021 8:35 AM ALL TERRAIN VEHICLE TECHNICIAN Associated Problem(s): Vitamin D deficiency - chronic, improved - Noted on 08/2020 - Vit D Level 17 --> 28 - improved control since last time - completed weekly high dose vitamin D - taking low dose daily vitamin D supplementation - check levels prior to next visit, order placed TERRAIN VEHICLE TECHNICIAN TERRAIN VEHICLE TECHNICIAN TERRAIN VEHICLE TECHNICIAN * Assessment & Plan Note - Rhys Alonso MD - 06/02/2021 8:34 AM ALL TERRAIN VEHICLE TECHNICIAN Associated Problem(s): Pure hypercholesterolemia - chronic, not well controlled - most recent LDL as shown below, worsening - she was started Atorvastatin 20 mg 03/27/21 but only started taking medication 1 weeka go - recheck Lipid panel in 3 months - most recent LDL as shown below Lab Results Component Value Date LDLCALC 173 (H) 01/06/2021 TERRAIN VEHICLE TECHNICIAN TERRAIN VEHICLE TECHNICIAN documented in this encounter Plan of Treatment Not on file documented as of this encounter Results * SCREENING MAMMOGRAM BILATERAL W MARIVEL (08/02/2021 10:11 AM ALL TERRAIN VEHICLE TECHNICIAN) Anatomical Region Laterality Modality Breast Bilateral Mammography 08/04/2021 10:0 0 AM ALL TERRAIN VEHICLE TECHNICIAN Impressions 08/04/2021 10:00 AM ALL TERRAIN VEHICLE TECHNICIAN There is no mammographic evidence of malignancy. A 1 year screening mammogram is recommended. BI-RADS: 1 - Negative. The patient has been or will be contacted. The patient will be entered into a reminder system with a target due date of 1 year for her next mammogram. Electronically signed by: Michael Uribe M.D. Narrative 08/04/2021 10:00 AM ALL TERRAIN VEHICLE TECHNICIAN EXAMINATION: SCREENING MAMMOGRAM BILATERAL W MARIVEL ORDERING [...] or other suspicious findings in either breast. Rhys Alonso MD IMG MAMMO PROCEDURES Fi nal Result * (ABNORMAL) Vitamin D 25 hydroxy (06/02/2021 9:52 AM ALL TERRAIN VEHICLE TECHNICIAN) Pathologist [facility] Vitamin D 25-OH 22(L) 30 - 80 ng/mL [facility] Blood 06/02/2021 9:52 AM ALL TERRAIN VEHICLE TECHNICIAN 06/02/2021 6:10 PM ALL TERRAIN VEHICLE TECHNICIAN Rhys Alonso MD LAB BLOOD ORDERABLES Fi nal Result [facility] [address] Department of Laboratories [place], [place] [id number] * Comprehensive metabolic panel (06/02/2021 9:52 AM ALL TERRAIN VEHICLE TECHNICIAN) Sodium 140 135 - 145 mmol/L [facility] Potassium, pl 4.1 3.3 - 4.9 mmol/L [facility] Chloride 104 97 - 110 mmol/L [facility] CH CO2 26 22 - 32 mmol/L [facility] Anion gap 10 2 - 15 mmol/L [facility] BUN 10 8 - 25 mg/dL [facility] Creatinine 0.87 0.60 - 1.10 mg/dL [facility] Glucose 78 70 - 199 mg/dL [facility] Comment: Interpretive Data Fasting glucose >/= 126 [...] Units/L [facility] Blood 06/02/2021 9:52 AM ALL TERRAIN VEHICLE TECHNICIAN 06/02/2021 6:10 PM ALL TERRAIN VEHICLE TECHNICIAN Rhys Alonso MD LAB BLOOD ORDERABLES Fi nal Result Performing Organization Address [facility] Co de Phone Number YAWILMER PULIDO [address] [place] [address] * TSH reflex to free T4 (06/02/2021 9:52 AM ALL TERRAIN VEHICLE TECHNICIAN) TSH 3.24 0.30 - 4.20 mcIUnit/mL [facility] Blood 06/02/2021 9:52 AM ALL TERRAIN VEHICLE TECHNICIAN 06/02/2021 6:10 PM ALL TERRAIN VEHICLE TECHNICIAN Rhys Alonso MD LAB BLOOD ORDERABLES Fi nal Result Performing Organization Address City/[facility] Co de Phone Number JANIE PULIDO [phone] [place] [address] documented in this encounter Visit Diagnoses Diagnosis Cervical strain, subsequent encounter- Primary BMI 22.0-22.9, adult Pure hypercholesterolemia Generalized anxiety disorder Cystic acne vulgaris Other acne Vitamin D deficiency Major depressive disorder with single episode, in partial remission (HCC) Moderate episode of recurrent major depressive disorder (HCC) Encounter for screening mammogram for malignant neoplasm of breast Encounter for screening mammogram for malignant neoplasm of breast documented in this encounter Discontinued Medications Medication Sig Discontinue Reason Start Date End Da te [id number] 600 unit capsuleIndications:Abdo cecilia bloating Take 1-2 capsules by mouth as needed (with meals for abdominal bloating) 01/06/2021 06/02/2021 naproxen (NAPROSYN) 500 mg tabletIndications:Anti- inflammatory,Pain Take 1 tablet (500 mg total) by mouth 2 (two) times a day as needed for pain or headaches (pain) 11/29/2020 06/02/2021 documented as of this encounter Care Teams Center Specialists Relationship Specialty Start Date End Date Rhys Alonso MD PCP - General Family Medicine 05/21/20 06/29/23 documented as of this encounter
--- OUTSIDE RECORDS SUMMARY | 2024-06-25 10:13 | XMS_ITS | Encounter Summary ---
Author Organization [facility] Healthcare Address [address] [place] [address] Care Team Providers Care Forest Fire Prevention Manager Name Role Phone Eliseo Lambert MD Primary Care Provider Encounter Details Date Type Department Care Team (Late st Contact Info) Description 06/18/2020 Telephone [facility] [address] [place] [address] Room 3420 (Third Floor) [place] [address] Amarilys Lee RN Social History Tobacco Use [...] on file Legal Sex Female 1:17 AM PHOTOGRAPHIC DOUBLE Gender Identity Not on file Sexual Orientation Not on file 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 Asymptomatic. Public Health Required Testing d/t Exposure. OGRAPHIC DOUBLE documented in this encounter Plan of Treatment Not on file documented as of this encounter Visit Diagnoses Diagnosis Exposure to COVID-19 virus- Primary documented in this encounter Additional Health Concerns Infection Onset Date Last Indicated Resolved Time Exposure, COVID-19 Comment:Added automatically based on COVID19 lab answers indicating exposure risk 06/10/2020 06/10/2020 06/25/2020 3:[address] documented as of this encounter Care Teams Forest Fire Prevention Manager Relationship Specialty Start Date End Date Eliseo Lambert MD PCP - General Family Medicine 05/21/20 06/29/23 documented as of this encounter
--- OUTSIDE RECORDS SUMMARY | 2024-06-25 10:18 | XMS_ITS | Encounter Summary ---
Author Organization [facility] Healthcare Address [address] [place] [address] Care Team Providers Care Travel Director Name Role Phone Asia Wyman NP Primary Care Provider Mark gee Encounter Details Date Type Department Care Team (Late st Contact Info) Description 02/27/2020 Telephone [facility] Healthcare Occup[facility] [address] [facility] Room 3420 (Third Floor) [place] [address] Radha Reynolds NP [address] [place] [address] Social History Tobacco Use Types Packs/Day Years Used Date Smoking Tobacco: Former Alcohol Use Standard Drinks/Week Comments No 0 (1 standard drink = 0.6 oz pur e alcohol) Comments No Sex and Gender Information Value Date Recorded Sex Assigned at Not on file 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
--- OUTSIDE RECORDS SUMMARY | 2024-06-25 10:18 | XMS_ITS | Encounter Summary ---
Author Organization [facility] Healthcare Address [address] [place] [address] Care Team Providers Care Laundry Operator Name Role Phone Asia Wyman NP Primary Care Provider Mark gee Encounter Details Date Type Department Care Team (Late st Contact Info) Description 02/06/2020 Telephone [facility] Healthcare Occup[facility] Health [address] [facility] Room 3420 (Third Floor) [place] [address] Radha Reynolds NP [address] [place] [address] Social History Tobacco Use Types Packs/Day Years Used Date Smoking Tobacco: Former Alcohol Use Standard Drinks/Week Comments No 0 (1 standard drink = 0.6 oz pur e alcohol) Comments No Sex and Gender Information Value Date Recorded Sex Assigned at Not on file 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
--- OUTSIDE RECORDS SUMMARY | 2024-06-25 10:18 | XMS_ITS | Encounter Summary ---
Author Organization [facility] Healthcare Address [address] [place] [address] Care Team Providers Care Disbursing Agent Name Role Phone No, Physician Primary Care Provider [phone] Encounter Details Date Type Department Care Team (Late st Contact Info) Description 03/11/2020 Telephone [facility] Healthcare Occup[facility] Health [address] [place] [address] Room 3420 (Third Floor) [place] [address] Mary Frank RN Social History Tobacco Use Types Packs/Day Years Used Date Smoking Tobacco: Former Alcohol Use Standard Drinks/Week Comments No 0 (1 standard drink = 0.6 oz pur e alcohol) Comments No Sex and Gender Information Value Date Recorded Sex Assigned at Not on file 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
--- OUTSIDE RECORDS SUMMARY | 2024-06-25 10:18 | XMS_ITS | Encounter Summary ---
Author Organization [facility] Healthcare Address [address] [place] [address] Care Team Providers Care Manager Transportation Planning Name Role Phone No, Physician Primary Care Provider [phone] Encounter Details Date Type Department Care Team (Late st Contact Info) Description 03/05/2020 Telephone [facility] Healthcare Occupati[facility]onal Health [address] [place] [address] Room 3420 (Third Floor) [place] [address] Nicole Kim RN Social History Tobacco Use Types Packs/Day Years Used Date Smoking Tobacco: Former Alcohol Use Standard Drinks/Week Comments No 0 (1 standard drink = 0.6 oz pur e alcohol) Comments No Sex and Gender Information Value Date Recorded Sex Assigned at Not on file 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
--- OUTSIDE RECORDS SUMMARY | 2024-06-25 10:18 | XMS_ITS | Encounter Summary ---
Author Organization [facility] Healthcare Address [address] [place] [address] Care Team Providers Care Radiology Transporter Name Role Phone No, Physician Primary Care Provider [phone] Encounter Details Date Type Department Care Team (Late st Contact Info) Description 03/26/2020 Telephone [facility] Healthcare Occupatiuonal Health [address] [place] [address] Room 3420 (Third Floor) [place] [address] Alisia Mahmood NP [address] [place] [address] Social History Tobacco Use Types Packs/Day Years Used Date Smoking Tobacco: Former Alcohol Use Standard Drinks/Week Comments No 0 (1 standard drink = 0.6 oz pur e alcohol) Comments No Sex and Gender Information Value Date Recorded Sex Assigned at Not on file 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
--- OUTSIDE RECORDS SUMMARY | 2024-06-25 10:18 | XMS_ITS | Encounter Summary ---
Author Organization [facility] Healthcare Address [address] [place] [address] Care Team Providers Care Custom Studio Coordinator Name Role Phone Asia Wyman NP Primary Care Provider Mark gee Encounter Details Date Type Department Care Team (Late st Contact Info) Description 02/05/2020 7:20 PM CDT Lab [address] [address] Close exposure to COVID-19 virus Social History Tobacco Use Types Packs/Day Years Used Date Smoking Tobacco: Former Alcohol Use Standard Drinks/Week Comments No 0 (1 standard drink = 0.6 oz pur e alcohol) Comments No Sex and Gender Information Value Date Recorded Sex Assigned at Not on file Legal Sex Female 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 The 2018-Novel Coronavirus [...] 02/06/2020 5:10 AM CDT Patient is employed by:->[employer] Is the patient experiencing any symptoms consistent with COVID (eg. Fever, cough, shortness of breath)?->No What is the reason for testing?->Post-exposure testing required by public health agency [place] Wendi Reich MD LAB MICROBIOLOGY - GENERAL ORDERABLES Final Result [facility] Department [place] [address] documented in this encounter Visit Diagnoses Diagnosis Close exposure to COVID-19 virus documented in this encounter Additional Health Concerns Infection Onset Date Last Indicated Resolved Time Exposure, COVID-19 Comment:Added automatically based on COVID19 lab answers indicating exposure risk 01/30/2020 01/30/2020 02/14/2020 3:05 AM C DT documented as of this encounter Care Teams Custom Studio Coordinator Relationship Specialty Start Date End Date Asia Wyman NP PCP - General Nurse Practitioner 09/30/17 03/04/20 documented as of this encounter
--- OUTSIDE RECORDS SUMMARY | 2024-06-25 10:18 | XMS_ITS | Encounter Summary ---
Author Organization [facility] Healthcare Address [address] [place] [address] Care Team Providers Care Stapling Machine Operator Name Role Phone Asia Wyman NP Primary Care Provider Mark gee Encounter Details Date Type Department Care Team (Late st Contact Info) Description 03/03/2020 5:20 PM CDT - 03/04/2020 5:52 PM CDT Hospital Encounter [facility] ADMIT Unknown, Naseem Echols MD [facility] [place], [place] [id number] Discharge Disposition: Discharge to home or self care Social History Tobacco Use Types Packs/Day Years Used Date Smoking Tobacco: Never Assessed Comments No Sex and Gender Information Value Date Recorded Sex Assigned at Not on file 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 Potassium 3.6 3.3 - 5.1 mmol/L [facility] Chloride 103 96 - 108 mmol/L [facility] Carbon Dioxide 26 22 - 32 mmol/L [facility] Anion Gap 11 7 - [address] [facility] Glucose 116(H) 70 - 100 mg/dL [facility] BUN 16 8 - 25 mg/dL [facility] Creatinine 1.0 0.5 - 1.1 mg/dL [facility] Comment: NOTE: Estimated GFR (Cockroft-Gault) will NOT be calculated unless patient Height and Weight were entered. Also, Kidney Disease Stage (GFR) and Estimated GFR (Cockroft-Gault) will NOT be calculated if Creatinine result is <0.2. Kidney Disease Stage 63 mL/MIN [facility] Comment: NOTE; ??The GFR is an estimated [...] dialysis Calcium 9.1 8.6 - 10.3 mg/dL [facility] Total Protein 6.2(L) 6.4 - 8.3 g/dL [facility] Albumin 4.1 3.5 - 5.0 g/dL [facility] Globulin 2.1(L) 2.3 - 3.5 gm/dL [facility] Albumin/Globulin Ratio 2.0(H) 1.1 - 1.[address] [facility] Total Bilirubin <0.2 0.0 - 1.2 mg/dL [facility] AST 17 0 - 32 U/L [facility] ALT 14 0 - 33 U/L [facility] Alkaline Phosphatase 58 35 - 104 U/L [facility] 03/04/2020 6:07 AM CDT 03/04/2020 6:48 AM CDT Narrative Resulting Agency Comment FREDERICK us Naseem Eubanks MD LAB BLOOD ORDERABLES Fin al Result [facility] [address] [place] [address], [facility] [phone] * (ABNORMAL) CBC with auto differential (03/04/2020 6:07 AM CDT) WBC 6.3 3.8 - 9.9 X10 3/ul [facility] RBC 3.56(L) 3.90 - 5.20 x10 6/ul [facility] Hemoglobin 11.8(L) 11.9 - 15.5 g/dL [facility] Hct 34.6(L) 35.6 - 45.5 % [facility] MCV 97.2(H) 81.3 - 96.[address] [facility] MCH 33.1 27.1 - 33.[address] [facility] MCHC 34.1 32.3 - 35.7 g/dl [facility] RDW 12.3 11.1 - 14.9 % [facility] Plt Count 205 150 - 400 x10 3/ul [facility] MPV 10.4 9.1 - 12.[address] [facility] Neut % 43.3 % [facility] Immature Gran % 0.2 % [facility] Lymph % 46.5 % [facility] Avery % 4.9 % [facility] Eos % 3.7 % [facility] AUTO BASO % 1.4 % [facility] NEUTROPHIL ABS # 2.7 1.7 - 6.5 x10 3/ul [facility] Immature Gran # 0.0 0.0 - 0.1 x10 3/ul [facility] Absolute Lymphs (auto) 2.9 0.8 - 3.3 x10 3/ul [facility] Absolute Monos (auto) 0.3 0.2 - 0.8 x10 3/ul [facility] Absolute Eos (auto) 0.2 0.0 - 0.5 x10 3/ul [facility] BASOPHIL ABS # 0.1 0.0 - 0.1 x10 3/ul [facility] Nucleat RBC Rel Count 0.0 #/100WBC [facility] NRBC abs 0.00 0.00 - 0.01 x10 3/ul [facility] Absolute Neutrophils 2,700 200 - 8,000 /ul [facility] 03/04/2020 6:07 AM CDT 03/04/2020 6:48 AM CDT Narrative Resulting Agency Comment FREDERICK us Naseem Eubanks MD LAB BLOOD ORDERABLES Fin al Result [facility] [address] [place], [place] [address] [phone] * MRI Lumbar Spine W WO Contrast (03/04/2020 12:00 AM CDT) Anatomical Region Laterality Modality Spine N/A Magnetic Resonan ce 03/04/2020 3:09 PM CDT Narrative 03/04/2020 3:29 PM CDT Patient Name: KRISTY ESTES ?Ordering Dr: Collin Ochoa MD ?? D.O.B: 1975 ? Exam Date: 03/04/20 ?? 0000 ?? Age: 44 ?Sex: Female ? MR#: [id number] ?? Loc: ??C231-98 ? RADIOLOGY REPORT ?? Order #[id number] ?? Magnetic Resonance Imaging ? MRI Lumbar [...] 3:29 PM ?? T: ? Report ID: [id number] ?? Reading Location: ??[id number] ? REPORT ELECTRONICALLY SIGNED IN OTHER VENDOR SYSTEM ?? Resulting Agency Comment I Procedure Note James Bailey MD - 03/04/2020 Patient Name: KRISTY ESTES Dr: Collin Ochoa MD D.O.B: 1975 Exam Date: 03/04/20 0000 Age: 44 Sex: Female MR#: [id number] Loc: C231-98 RADIOLOGY REPORT Order #[id number] Magnetic Resonance Imaging MRI Lumbar W W/O [...] James Bailey M.D. AT T: Report ID: [id number] Reading Location: [id number] REPORT ELECTRONICALLY SIGNED IN OTHER VENDOR SYSTEM [...] ?? Age: 44 ?Sex: Female ? MR#: [id number] ?? Loc: ??C231-98 ? RADIOLOGY REPORT ?? Order #[id number] ?? Magnetic Resonance Imaging ? MRI Thoracic [...] 3:09 PM ?? T: ? Report ID: [id number] ?? Reading Location: ??[id number] ? REPORT ELECTRONICALLY SIGNED IN OTHER VENDOR SYSTEM ?? Resulting Agency Comment I Procedure Note James Bailey MD - 03/04/2020 Patient Name: KRISTY ESTES Dr: Collin Ochoa MD D.O.B: 1975 Exam Date: 03/04/20 0000 Age: 44 Sex: Female MR#: [id number] [facility] C[id number] Order #[id number] Magnetic Resonance Imaging MRI Thoracic Spine W [...] James Bailey M.D. AT T: Report ID: [id number] Reading Location: [place] [address] REPORT ELECTRONICALLY SIGNED IN OTHER VENDOR SYSTEM [...] ?? Age: 44 ?Sex: Female ? MR#: [id number] ?? Loc: ??C231-98 ? RADIOLOGY REPORT ?? Order #[id number] ?? Magnetic Resonance Imaging ? MRI Cervical [...] 2:56 PM ?? T: ? Report ID: [id number] ?? Reading Location: ??[id number] ? REPORT ELECTRONICALLY SIGNED IN OTHER VENDOR SYSTEM ?? Resulting Agency Comment I Procedure Note James Bailey MD - 03/04/2020 Patient Name: KRISTY ESTES Dr: Collin Ochoa MD D.O.B: 1975 Exam Date: 03/04/20 0000 Age: 44 Sex: Female MR#: [id number] Loc: C231-98 RADIOLOGY REPORT Order #[id number] Magnetic Resonance Imaging MRI Cervical W W/O [...] James Bailey M.D. AT T: Report ID: [id number] Reading Location: [place] [address] REPORT ELECTRONICALLY SIGNED IN OTHER VENDOR SYSTEM [...] ?? Age: 44 ?Sex: Female ? MR#: [id number] ?? Loc: ??C231-98 ? RADIOLOGY REPORT ?? Order #[id number] ?? Magnetic Resonance Imaging ? MRI Brain [...] 2:55 PM ?? T: ? Report ID: [id number] ?? Reading Location: ??[id number] ? REPORT ELECTRONICALLY SIGNED IN OTHER VENDOR SYSTEM ?? Resulting Agency Comment I Procedure Note Marc Mata MD - 03/04/2020 Patient Name: KRISTY ESTES Dr: Collin Ochoa MD D.O.B: 1975 Exam Date: 03/04/20 0000 Age: 44 Sex: Female MR#: [id number] Loc: C231-98 RADIOLOGY REPORT Order #[id number] Magnetic Resonance Imaging MRI Brain W W/O [...] Marc Mata M.D. RS T: Report ID: [id number] Reading Location: [place] [address] REPORT ELECTRONICALLY SIGNED IN OTHER VENDOR SYSTEM Collin Ochoa MD IMG MRI PROCEDURES F inal Result * ECG 12 lead (03/03/2020 1:40 PM CDT) Ventricular Rate EKG/Min 80 BPM ER RADIOLOGY Atrial Rate 80 BPM ER RADIOLOGY MS-Interval (MSEC) 150 ms ER RADIOLOGY QRS-Interval (MSEC) 70 ms ER RADIOLOGY QT-Interval (MSEC) 338 ms ER RADIOLOGY QTc 389 ms ER RADIOLOGY P [place] 56 degrees ER RADIOLOGY R [place] 12 degrees ER RADIOLOGY T [place] 49 degrees ER RADIOLOGY Diagnosis Normal sinus rhythm Normal ECG No previous ECGs available ER RADIOLOGY 03/03/2020 1:40 PM CDT 03/03/2020 10:26 PM CDT Narrative Resulting Agency Comment WILFRED Brooke VOGEL ECG ORDERABLES Final Re sult Performing Organization Address [facility] Co de Phone Number ER RADIOLOGY * Erythrocyte sedimentation rate (03/03/2020 1:38 PM CDT) Pathologist [facility] ESR 18 1 - 20 mm/hr [facility] 03/03/2020 1:38 PM CDT 03/03/2020 1:40 PM CDT Narrative Resulting Agency Comment FREDERICK Brooke VOGEL LAB BLOOD ORDERABLES [place] [address], [facility] [phone] * (ABNORMAL) TNI with LIPID PANEL (03/03/2020 1:38 PM CDT) Troponin I <0.300 0.000 - 0.300 ng/mL [facility] Comment: Reference using NURIA Chemiluminescence ? Negative: Repeat in 4-6 hours as indicated. Triglycerides 97 0 - 149 mg/dL [facility] Comment: National Lipid Association/NCEP Guidelines: ?? Normal ?< 150 mg/dL ?? Borderline high ?? 150-199 mg/dL ?? High ?200-499 mg/dL ?? Very High ? >=500 mg/dL Cholesterol 215(H) 0 - 199 mg/dL [facility] Comment: National Lipid Association/NCEP Guidelines: Desirable ? < 200 mg/dL Borderline high: ??200-239 mg/dL High Risk: ?>=240 mg/dL HDL Cholesterol 63 mg/dL [facility] Comment: Reference Ranges: ? Males: >=40 mg/dL ? Females: >=50 mg/dL LDL Cholesterol, Calc 133(H) 0 - 129 mg/dL [facility] Comment: National Lipid Association/NCEP Guidelines: ??Optimal ? < 100 mg/dL ??Near Optimal ?100-129 mg/dL ??Borderline high 130-159 mg/dL ??High ?>=160 mg/dL Cholesterol/HDL Ratio 3.[address] [facility] Comment: Optimal ??< 3.5:1 High ? > 5:1 03/03/2020 1:38 PM CDT 03/03/2020 1:40 PM CDT Narrative Resulting Agency Comment ER us Brooke VOGEL LAB BLOOD ORDERABLES Fin al Result [facility] [address] [phone] * Comprehensive metabolic panel (03/03/2020 1:38 PM CDT) Sodium 135 135 - 145 mmol/L [facility] Potassium 4.2 3.3 - 5.1 mmol/L [facility] Chloride 102 96 - 108 mmol/L [facility] Carbon Dioxide 26 22 - 32 mmol/L [facility] Anion Gap 7 7 - [address] [facility] Glucose 94 70 - 100 mg/dL [facility] BUN 14 8 - 25 mg/dL [facility] Creatinine 0.9 0.5 - 1.1 mg/dL [facility] Comment: NOTE: Estimated GFR (Cockroft-Gault) will NOT be calculated unless patient Height and Weight were entered. Also, Kidney Disease Stage (GFR) and Estimated GFR (Cockroft-Gault) will NOT be calculated if Creatinine result is <0.2. Kidney Disease Stage 72 mL/MIN [facility] Comment: NOTE; ??The GFR is an estimated [...] dialysis Calcium 9.5 8.6 - 10.3 mg/dL [facility] Total Protein 7.2 6.4 - 8.3 g/dL [facility] Albumin 4.6 3.5 - 5.0 g/dL [facility] Globulin 2.6 2.3 - 3.5 gm/dL [facility] Albumin/Globulin Ratio 1.8 1.1 - 1.[address] [facility] Total Bilirubin 0.4 0.0 - 1.2 mg/dL [facility] AST 19 0 - 32 U/L [facility] ALT 14 0 - 33 U/L [facility] Alkaline Phosphatase 65 35 - 104 U/L [facility] 03/03/2020 1:38 PM CDT 03/03/2020 1:40 PM CDT Narrative Resulting Agency Comment ER us Brooke VOGEL LAB BLOOD ORDERABLES Fin al Result [facility] [address] [phone] * (ABNORMAL) CBC with auto differential (03/03/2020 1:38 PM CDT) WBC 8.9 3.8 - 9.9 X10 3/ul [facility] RBC 3.84(L) 3.90 - 5.20 x10 6/ul [facility] Hemoglobin 12.8 11.9 - 15.5 g/dL [facility] Hct 37.0 35.6 - 45.5 % [facility] MCV 96.4 81.3 - 96.[address] [facility] MCH 33.3 27.1 - 33.[address] [facility] MCHC 34.6 32.3 - 35.7 g/dl [facility] RDW 12.5 11.1 - 14.9 % [facility] Plt Count 227 150 - 400 x10 3/ul [facility] MPV 10.0 9.1 - 12.[address] [facility] Neut % 71.1 % [facility] Immature Gran % 0.2 % [facility] Lymph % 22.6 % [facility] Avery % 3.7 % [facility] Eos % 1.5 % [facility] AUTO BASO % 0.9 % [facility] NEUTROPHIL ABS # 6.3 1.7 - 6.5 x10 3/ul [facility] Immature Gran # 0.0 0.0 - 0.1 x10 3/ul [facility] Absolute Lymphs (auto) 2.0 0.8 - 3.3 x10 3/ul [facility] Absolute Monos (auto) 0.3 0.2 - 0.8 x10 3/ul [facility] Absolute Eos (auto) 0.1 0.0 - 0.5 x10 3/ul [facility] BASOPHIL ABS # 0.1 0.0 - 0.1 x10 3/ul [facility] Nucleat RBC Rel Count 0.0 #/100WBC [facility] NRBC abs 0.00 0.00 - 0.01 x10 3/ul [facility] Absolute Neutrophils 6,300 200 - 8,000 /ul [facility] 03/03/2020 1:38 PM CDT 03/03/2020 1:40 PM CDT Narrative Resulting Agency Comment FREDERICK us Brooke VOGEL LAB BLOOD ORDERABLES Fin al Result [facility] [address] [place] [address], [facility] [phone] * CT Head WO Contrast (03/03/2020 12:00 AM CDT) Anatomical Region Laterality Modality Head and Neck N/A Computed Tomogra phy 03/03/2020 2:28 PM CDT Narrative 03/03/2020 2:33 PM CDT Patient Name: KRISTY ESTES ?Ordering Dr: Brooke De Leon PA-C ?? D.O.B: 1975 ? Exam Date: 03/03/20 ?? 0000 ?? Age: 44 ?Sex: Female ? MR#: [id number] ?? Loc: ? RADIOLOGY REPORT ?? Order #[id number] ?? CT Scan ? CT Head WO [...] 2:33 PM ?? T: ? Report ID: [id number] ?? Reading Location: ??[id number] ? REPORT ELECTRONICALLY SIGNED IN OTHER VENDOR SYSTEM ?? Resulting Agency Comment E Procedure Note Clarke Mello MD - 03/03/2020 Patient Name: KRISTY ESTES Dr: Brooke De Leon PA-C, D.O.B: 1975 Exam Date: 03/03/20 0000 Age: 44 Sex: Female MR#: [id number] Loc: [facility]#: [id number] RADIOLOGY REPORT Order #[id number] CT Scan CT Head WO IV Contrast [...] Clarke Mello M.D. AB T: Report ID: [id number] Reading Location: [place] [address] REPORT ELECTRONICALLY SIGNED IN OTHER VENDOR SYSTEM Brooke VOGEL IMHeather CT PROCEDURES Final Result documented in this encounter Visit Diagnoses Not on filedocumented in this encounter Additional Health Concerns Infection Onset Date Last Indicated Resolved Time Exposure, COVID-19 Comment:Added automatically based on COVID19 lab answers indicating exposure risk 02/20/2020 02/20/2020 03/06/2020 3:05 AM C DT documented as of this encounter Care Teams Stapling Machine Operator Relationship Specialty Start Date End Date Wyman, Asia Harp NP PCP - General Nurse Practitioner 09/30/17 03/04/20 documented as of this encounter
--- OUTSIDE RECORDS SUMMARY | 2024-06-25 10:18 | XMS_ITS | Encounter Summary ---
Author Organization [facility] Address [address] [place] [address] Care Team Providers Care Supervisor Testing Name Role Phone Asia Wyman NP Primary Care Provider Mark gee Encounter Details Date Type Department Care Team (Late st Contact Info) Description 02/20/2020 Telephone [facility] Occupatiuonal Health [address] [facility] [address] (Third Floor) [place] [address] Radha Reynolds NP [address] [place] [address] Social History Tobacco Use Types Packs/Day Years Used Date Smoking Tobacco: Former Alcohol Use Standard Drinks/Week Comments No 0 (1 standard drink = 0.6 oz pur e alcohol) Comments No Sex and Gender Information Value Date Recorded Sex Assigned at Not on file 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
--- OUTSIDE RECORDS SUMMARY | 2024-06-25 10:18 | XMS_ITS | Encounter Summary ---
Author Organization [facility] Healthcare Address [address] [place] [address] Care Team Providers Care Livestock Sales Representative Name Role Phone No, Physician Primary Care Provider [phone] Encounter Details Date Type Department Care Team (Late st Contact Info) Description 04/02/2020 Telephone [facility] Occupatiuonal Health [address] [facility] [address] (Third Floor) [place] [address] Nora Angel NP [address] [place] [address] Social History Tobacco Use Types Packs/Day Years Used Date Smoking Tobacco: Former Alcohol Use Standard Drinks/Week Comments No 0 (1 standard drink = 0.6 oz pur e alcohol) Comments No Sex and Gender Information Value Date Recorded Sex Assigned at Not on file 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
--- OUTSIDE RECORDS SUMMARY | 2024-06-25 10:18 | XMS_ITS | Encounter Summary ---
Author Organization [facility] Healthcare Address [address] [place] [address] Care Team Providers Care Banking Services Officer Name Role Phone Asia Wyman NP Primary Care Provider Mark gee Encounter Details Date Type Department Care Team (Late st Contact Info) Description 02/13/2020 Telephone [facility] Occupatiuonal Health [address] [place] [address] Room [address] (Third Floor) [place] [address] Nicole Kim RN Social History Tobacco Use Types Packs/Day Years Used Date Smoking Tobacco: Former Alcohol Use Standard Drinks/Week Comments No 0 (1 standard drink = 0.6 oz pur e alcohol) Comments No Sex and Gender Information Value Date Recorded Sex Assigned at Not on file 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 The 2018-Novel Coronavirus [...] 2:40 AM CDT Patient is employed by:->[employer] Is the patient experiencing any symptoms consistent with COVID (eg. Fever, cough, shortness of breath)?->No What is the reason for testing?->Post-exposure testing required by public health agency Wendi Reich MD LAB MICROBIOLOGY - GENERAL ORDERABLES Final Result [facility] Department [place] [address] documented in this encounter Visit Diagnoses Diagnosis Close exposure to COVID-19 virus- Primary Close exposure to COVID-19 virus documented in this encounter Additional Health Concerns Infection Onset Date Last Indicated Resolved Time Exposure, COVID-19 Comment:Added automatically based on COVID19 lab answers indicating exposure risk 01/30/2020 01/30/2020 02/14/2020 3:05 AM C DT documented as of this encounter Care Teams Banking Services Officer Relationship Specialty Start Date End Date Asia Wyman NP PCP - General Nurse Practitioner 09/30/17 03/04/20 documented as of this encounter
--- OUTSIDE RECORDS SUMMARY | 2024-06-25 10:18 | XMS_ITS | Encounter Summary ---
Author Organization [facility] Address [address] [facility] [address] [place] [address] Care Team Providers Care Aboriginal Liaison Officer Name Role Phone Asia Wyman NP Primary Care Provider Mark gee Reason for Visit * Reason Comments Employment Physical Work px Encounter Details Date Type Department Care Team (Late st Contact Info) Description 03/01/2020 1:15 PM CDT Office Visit [facility] [address] [place] [address] [place] [address] Rin Noel, BONNIE [address] [place] [address] Encounter for physical examination related to employment (Primary Dx) Social History Tobacco Use Types Packs/Day Years Used Date Smoking Tobacco: Former Tobacco Cessation:Counseling Given: No Alcohol Use Standard Drinks/Week Comments No 0 (1 standard drink = 0.6 oz pur e alcohol) Comments No Sex and Gender Information Value Date Recorded Sex Assigned at Not on file Legal Sex Female 1:17 AM RN [facility] Gender Identity Not on file Sexual Orientation [...] 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 Hx of chronic anxiety well-controlled, and acne - her spironolactone is for the acne prescribed by a radio station engineer. Review of Systems Constitutional: Negative for activity [...] Nose: Nose normal. No rhinorrhea. Mouth/Throat: Lips: [place]. No lesions. Mouth: Mucous membranes are moist. [...] documented as of this encounter Care Teams Aboriginal Liaison Officer Relationship Specialty Start Date End Date Asia Wyman NP PCP - General Nurse Practitioner 09/30/17 03/04/20 documented as of this encounter
--- OUTSIDE RECORDS SUMMARY | 2024-06-25 10:18 | XMS_ITS | Encounter Summary ---
Author Organization [facility] Healthcare Address [address] [place] [address] Care Team Providers Care Supervisor Burling And Joining Name Role Phone Asia Wyman NP Primary Care Provider Mark gee Encounter Details Date Type Department Care Team (Late st Contact Info) Description 01/30/2020 Telephone [facility] Occupatiuonal Health [address] [place] [address] Room [address] (Third Floor) [place] [address] Nicole iKm, RN Social History Tobacco Use Types Packs/Day Years Used Date Smoking Tobacco: Former Alcohol Use Standard Drinks/Week Comments No 0 (1 standard drink = 0.6 oz pur e alcohol) Comments No Sex and Gender Information Value Date Recorded Sex Assigned at Not on file 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 The 2019-Novel Coronavirus [...] 02/06/2020 5:10 AM CDT Patient is employed by:->[employer] [employer] Is the patient experiencing any symptoms consistent with COVID (eg. Fever, cough, shortness of breath)?->No What is the reason for testing?->Post-exposure testing required by public health agency us Wendi Reich MD LAB MICROBIOLOGY - GENERAL ORDERABLES Final Result [facility] Department [place] [address] documented in this encounter Visit Diagnoses Diagnosis Close exposure to COVID-19 virus- Primary Close exposure to COVID-19 virus documented in this encounter Additional Health Concerns Infection Onset Date Last Indicated Resolved Time Exposure, COVID-19 Comment:Added automatically based on COVID19 lab answers indicating exposure risk 01/30/2020 01/30/2020 02/14/2020 3:05 AM C DT documented as of this encounter Care Teams Supervisor Burling And Joining Relationship Specialty Start Date End Date Asia Wyman NP PCP - General Nurse Practitioner 09/30/17 03/04/20 documented as of this encounter
--- OUTSIDE RECORDS SUMMARY | 2024-06-25 10:18 | XMS_ITS | Encounter Summary ---
Author Organization [facility] Healthcare Address [address] [place] [address] Care Team Providers Care Service Attendant Cafeteria Name Role Phone No, Physician Primary Care Provider [phone] Encounter Details Date Type Department Care Team (Late st Contact Info) Description 03/05/[address] 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 Employee Facility: 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 [...] Stay home and test Testing Site Location: [facility] Notes: Employee instructed to contact [facility] documented in this encounter Plan of Treatment Not on file documented as of this encounter Visit Diagnoses Not on filedocumented in this encounter Additional Health Concerns Infection Onset Date Last Indicated Resolved Time Exposure, COVID-19 Comment:Added automatically based on COVID19 lab answers indicating exposure risk 02/20/2020 02/20/2020 03/06/2020 3:05 AM C DT documented as of this encounter Care Teams Service Attendant Cafeteria Relationship Specialty Start Date End Date No, Physician PCP - General 03/05/20 04/03/20 documented as of this encounter
--- OUTSIDE RECORDS SUMMARY | 2024-06-25 10:18 | XMS_ITS | Encounter Summary ---
Author Organization [facility] Healthcare Address [address] [place] [address] Care Team Providers Care Pigment Processor Name Role Phone Asia Wyman NP Primary Care Provider Mark gee Encounter Details Date Type Department Care Team (Late st Contact Info) Description 02/15/2020 4:00 PM CDT Lab [address] [address] Close exposure to COVID-19 virus Social History Tobacco Use Types Packs/Day Years Used Date Smoking Tobacco: Former Alcohol Use Standard Drinks/Week Comments No 0 (1 standard drink = 0.6 oz pur e alcohol) Comments No Sex and Gender Information Value Date Recorded Sex Assigned at Not on file 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 The 2018-Novel [...] 2:40 AM CDT Patient is employed by:->[employer] Is the patient experiencing any symptoms consistent with COVID (eg. Fever, cough, shortness of breath)?->No What is the reason for testing?->Post-exposure testing required by public health agency us Wendi Reich MD LAB MICROBIOLOGY - GENERAL ORDERABLES Final Result J[facility]IE [facility] Department [place] [address] documented in this encounter Visit Diagnoses Diagnosis Close exposure to COVID-19 virus documented in this encounter Care Teams Pigment Processor Relationship Specialty Start Date End Date Asia Wyman NP PCP - General Nurse Practitioner 09/30/17 03/04/20 documented as of this encounter
--- OUTSIDE RECORDS SUMMARY | 2024-06-25 10:18 | XMS_ITS | Encounter Summary ---
Author Organization [facility] Healthcare Address [address] [place] [address] Care Team Providers Care Nursing Student Name Role Phone No, Physician Primary Care Provider [phone] Encounter Details Date Type Department Care Team (Late st Contact Info) Description 03/19/2020 Telephone [facility] Healthcare Occupatiuonal Health [address] [facility] [address] (Third Floor) [place] [address] Jazmyn Parker NP [address] [place] [address] [address] [place] [address] Social History Tobacco Use Types Packs/Day Years Used Date Smoking Tobacco: Former Alcohol Use Standard Drinks/Week Comments No 0 (1 standard drink = 0.6 oz pur e alcohol) Comments No Sex and Gender Information Value Date Recorded Sex Assigned at Not on file Legal Sex Female 1:17 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
--- OUTSIDE RECORDS SUMMARY | 2024-06-25 10:20 | XMS_ITS | Encounter Summary ---
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 The 2018-Novel Coronavirus [...] Final Result Performing Organization Address City/State/ZIP Co ak Phone Number [facility] Department [place] [address] documented in this encounter Visit Diagnoses Not on filedocumented in this encounter Care Teams Stem Sizer Relationship Specialty Start Date End Date Wyman, Asia Harp NP PCP - General Nurse Practitioner 09/30/17 03/04/20 documented as of this encounter
--- OUTSIDE RECORDS SUMMARY | 2024-06-25 10:20 | XMS_ITS | Encounter Summary ---
Author Organization [facility] Healthcare Address [address] [place] [address] Care Team Providers Care Federal Agent Name Role Phone Asia Wyman NP Primary [...] on file Legal Sex Female 1:17 AM IT ARCHITECT Gender Identity Not on file Sexual Orientation [...] on filedocumented in this encounter Care Teams Federal Agent Relationship Specialty Start Date End Date Asia Wyman, BONNIE PCP - General Nurse Practitioner 09/30/17 03/04/20 documented as of this encounter
--- OUTSIDE RECORDS SUMMARY | 2024-06-25 10:20 | XMS_ITS | Encounter Summary ---
Author Organization [facility] Healthcare Address [address] [place] [address] Care Team Providers Care Chemical Process Operator Name Role Phone Asia Wyman NP [...] on file Legal Sex Female 1:17 AM RELEASE ENGINEER Gender Identity Not on file Sexual [...] on filedocumented in this encounter Care Teams Chemical Process Operator Relationship Specialty Start Date End Date Asia Wyman NP PCP - General Nurse Practitioner 09/30/17 03/04/20 documented as of this encounter
--- OUTSIDE RECORDS SUMMARY | 2024-06-25 10:20 | XMS_ITS | Encounter Summary ---
Author Organization [facility] Facility Care Team Providers Care Client Solutions Director Name Role Phone Asia Wyman NP [...] on file Legal Sex Female 1:17 AM LAB INSTRUCTOR Gender Identity Not on file Sexual Orientation Not on file documented as of this encounter Plan of Treatment Not on file documented as of this encounter Visit Diagnoses Not on filedocumented in this encounter Care Teams Client Solutions Director Relationship Specialty Start Date End Date Asia Wyman NP PCP - General Nurse Practitioner 09/30/17 03/04/20 documented as of this encounter
--- OUTSIDE RECORDS SUMMARY | 2024-06-25 10:20 | XMS_ITS | Encounter Summary ---
Author Organization [facility] Healthcare Address [address] [place] [address] Care Team Providers Care Medical Accounts Receivable Specialist Name Role Phone Asia Wyman NP Primary Care Provider Mark gee Reason for Visit * Reason Comments Cough Encounter Details Date Type Department Care Team (Late st Contact Info) Description 07/26/2019 6:12 PM WRITER EDITOR - 07/26/2019 7:05 PM WRITER EDITOR Emergency [facility] Emergency Department [address] [place] [address] Upper respiratory tract infection, unspecified type (Primary [...] on file Legal Sex Female 1:17 AM WRITER EDITOR Gender Identity Not on file Sexual Orientation Not on file documented as of this encounter Last Filed Vital Signs Vital Sign Reading Time Taken Comments Blood Pressure 121/75 07/26/2019 6:11 PM WRITER EDITOR Pulse 80 07/26/2019 6:11 PM WRITER EDITOR Temperature 36.6 ??C (97.9 ??F) 07/26/2019 6:09 PM CS T Respiratory Rate 18 07/26/2019 6:09 PM WRITER EDITOR Oxygen Saturation 100% 07/26/2019 6:11 PM WRITER EDITOR Inhaled Oxygen Concentration - - Weight 51.3 kg (113 lb) 07/26/2019 6:09 PM WRITER EDITOR Height 154.9 cm (5' 1 ) 07/26/2019 6:09 PM WRITER EDITOR Body Mass Index 21.35 07/26/2019 6:09 PM WRITER EDITOR documented in this encounter Discharge Diagnoses Diagnosis [...] Carolyn Quintanilla NP - 07/26/2019 6:55 PM WRITER EDITOR Use over the counter Tylenol and Motrin per manufacturers guidelines for relief of pain and fever. Follow up with Asia wyman without fail. ER EDITOR ER EDITOR * Attachments The following attachments cannot be sent through Care Everywhere. * URI, Viral, No Abx (Adult) (Welsh) documented in this encounter Medications at Time [...] Dyssomnia 09/03/2009 Class: Chronic ??? Inflammatory polyarthropathy ([facility]) 09/03/2009 Class: Chronic ??? Myopathy 09/03/2009 Class: [...] tenderness or frontal sinus tenderness. Mouth/Throat: Lips: [place]. Mouth: Mucous membranes are moist. Pharynx: Oropharynx [...] and Memory: Cognition normal. Judgment: Judgment normal. [facility] ED Course as of Jul 26 1854 [...] Kurt Nash MD at 07/27/2019 12:28 AM WRITER EDITOR ER EDITOR ER EDITOR Associated attestation - Kurt Nash MD - 07/27/2019 12:28 AM WRITER EDITOR ED Attestation Based on the medical record [...] Patient denies being around anyone with TB ER EDITOR ER EDITOR documented in this encounter Plan of Treatment Not on file documented as of this encounter Procedures Procedure Name Priority Date/Time Associated Diagnosis Comments XR CHEST PA LATERAL 2 VIEWS ED 07/26/2019 6:22 PM WRITER EDITOR documented in this encounter Results * XR Chest Pa Lateral 2 Views (07/26/2019 6:22 PM WRITER EDITOR) Anatomical Region Laterality Modality Body, Chest N/A Computed Radiogr aphy 07/26/2019 6:16 PM WRITER EDITOR Narrative 07/26/2019 6:48 PM WRITER EDITOR PROCEDURE INFORMATION: Exam: XR Chest, 2 Views [...] Primary documented in this encounter Care Teams Medical Accounts Receivable Specialist Relationship Specialty Start Date End Date Asia Wyman NP PCP - General Nurse Practitioner 09/30/17 03/04/20 documented as of this encounter
--- OUTSIDE RECORDS SUMMARY | 2024-06-25 10:20 | XMS_ITS | Encounter Summary ---
Author Organization [facility] Healthcare Address [address] [place] [address] Care Team Providers Care Circulation Tender Name Role Phone Asia Wyman NP Primary Care Provider Mark gee Reason for Visit * Reason Onset Date Comments COVID-19 EVALUATION 11/04/2019 Encounter Details Date Type Department Care Team (Late st Contact Info) Description 11/04/2019 Telephone [facility] [address] [place] [address] Room 3420 (Third Floor) [place] [address] Yuri Ashton PA [address] [facility] [address] [facility] [address] [place] [address] COVID-19 EVALUATION Social History Tobacco Use Types Packs/Day Years Used Date Smoking Tobacco: Former Alcohol Use Standard Drinks/Week Comments No 0 (1 standard drink = 0.6 oz pur e alcohol) Comments No Sex and Gender Information Value Date Recorded Sex Assigned at Not on file Legal Sex Female 1:17 AM 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 AND ASSESSMENT DIRECTOR Gender Identity Not on file Sexual Orientation Not on file documented as of this encounter Miscellaneous Notes * Telephone Encounter - Yuri Ashton PA - 11/04/2019 8:30 AM CDT Employee COVID-19 Screening 11/04/2019 Email: [email or web address] Employee ID# [id number] Employer: [employer] 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 ?? Please go to the employee testing site at [facility] ?? While you are awaiting testing and [...] Occupational Health will notify you and your java manager when you can return to work. ?? Any isolation or quarantine instructions provided to the employee from federal, state or local public health authorities must be followed. ?? We will send you an email with self-quarantine instruction. Contact Occupational Health at [facility] [phone] documented in this encounter Plan of Treatment Not on file documented as of this encounter Visit Diagnoses Diagnosis Exposure to 2019 novel coronavirus- Primary documented in this encounter Care Teams Circulation Tender Relationship Specialty Start Date End Date Asia Wyman NP PCP - General Nurse Practitioner 09/30/17 03/04/20 documented as of this encounter
--- OUTSIDE RECORDS SUMMARY | 2024-06-25 10:21 | XMS_ITS | Encounter Summary ---
Author Organization [facility] Healthcare Address [address] [place] [address] Care Team Providers Care Lacquer Machine Feeder Name Role Phone Fernando Bryant DO Primary Care Provider [phone] Encounter Details Date Type Department Care Team (Late st Contact Info) Description 06/12/2011 1:45 PM ELECTRICIAN SUPERVISOR - 06/12/2011 11:59 PM ELECTRICIAN SUPERVISOR Hospital Encounter [facility]INCON[facility] Fernando Bryant DO [address] [place] [address] Social History Tobacco Use Types Packs/Day Years Used Date Smoking Tobacco: Never Assessed Comments Unknown Sex and Gender Information Value Date Recorded Sex Assigned at Not on file Legal Sex Female 1:17 AM ELECTRICIAN SUPERVISOR Gender Identity Not on file Sexual Orientation Not on file documented as of this encounter Plan of Treatment Not on file documented as of this encounter Visit Diagnoses Not on filedocumented in this encounter Care Teams Lacquer Machine Feeder Relationship Specialty Start Date End Date Fernando Bryant DO [address] [facility] [place] [address] PCP - General 04/30/11 03/31/17 documented as of this encounter
--- OUTSIDE RECORDS SUMMARY | 2024-06-25 10:21 | XMS_ITS | Encounter Summary ---
Author Organization [facility] Healthcare Address [address] [place] [address] Care Team Providers Care Info Specialist Name Role Phone Fernando Bryant DO Primary Care Provider [phone] Encounter Details Date Type Department Care Team (Late st Contact Info) Description 07/01/2010 12:01 AM PRODUCTION WORKER - 07/01/2010 11:59 PM PRODUCTION WORKER Hospital Encounter [facility]INCON[facility] Fernando Bryant DO [address] [place] [address] Social History Tobacco Use Types Packs/Day Years Used Date Smoking Tobacco: Never Assessed Comments Unknown Sex and Gender Information Value Date Recorded Sex Assigned at Not on file Legal Sex Female 1:17 AM PRODUCTION WORKER Gender Identity Not on file Sexual Orientation Not on file documented as of this encounter Plan of Treatment Not on file documented as of this encounter Visit Diagnoses Not on filedocumented in this encounter Care Teams Info Specialist Relationship Specialty Start Date End Date Fernando Bryant DO [address] [facility] [place] [address] PCP - General 11/07/09 04/29/11 documented as of this encounter
--- OUTSIDE RECORDS SUMMARY | 2024-06-25 10:21 | XMS_ITS | Encounter Summary ---
Author Organization [facility] Healthcare Address [address] [place] [address] Care Team Providers Care Nurse Transitional Name Role Phone Basiliosarah Fernando Yanezony Primary Care Provider [phone]- [phone] Encounter Details Date Type Department Care Team (Late st Contact Info) Description 07/14/2013 6:03 AM WRAPPER HAND - 07/14/2013 10:00 AM WRAPPER HAND Hospital Encounter [facility] Kiet Cristobal MD [address] [place] [address] [address] Encounter for sterilization; Accidental laceration or bleeding during procedure NEC; Accidental laceration or bleeding during surgery; Place of occurrence, residential institution Social History Tobacco Use Types Packs/Day Years Used Date Smoking Tobacco: Never Assessed Comments Unknown Sex and Gender Information Value Date Recorded Sex Assigned at Not on file Legal Sex Female 1:17 AM WRAPPER HAND Gender Identity Not on file Sexual Orientation Not on file documented as of this encounter Miscellaneous Notes * Op Note - Provider, MD Gena - 07/14/2013 12:00 AM CST OPERATIVE REPORT Patient: KRISTY ESTES Account: [id number] Room No: 175-12 : 1975 Patient Type: [facility] Attend.: Kiet Dickens M.D. Admit Date: 07/14/2013 [...] Comments URINE MICROSCOPY Routine 07/14/2013 6:08 AM WRAPPER HAND URINALYSIS Routine 07/14/2013 6:08 AM WRAPPER HAND SERUM CHORIONIC GONADOTROPIN (HCG) IDENTIFICATION Routine 07/14/2013 6:07 AM WRAPPER HAND BLOOD WBC CELL MORPHOLOGIC EXAM, AUTO Routine 07/14/2013 6:07 AM WRAPPER HAND BLOOD CELL COUNT (CBC) Routine 4 6:07 AM WRAPPER HAND DISCHARGE LABORATORY CUMULATIVE REPORT Routine 07/14/2013 12:00 AM WRAPPER HAND documented in this encounter Results * (ABNORMAL) Urinalysis (07/14/2013 6:08 AM WRAPPER HAND) Color, ur DRKYEL HISTORICAL RESULTS Leukocyte esterase, [...] NEGATIVE HISTORICAL RESULTS Urine 07/14/2013 6:08 AM WRAPPER HAND us Kiet Dickens MD LAB BLOOD ORDERABLES F inal Result HISTORICAL RESULTS * (ABNORMAL) Urine microscopy (07/14/2013 6:08 AM WRAPPER HAND) WBC, ur 5 - 10(A) 0 - [...] NEGATIVE HISTORICAL RESULTS Urine 07/14/2013 6:08 AM WRAPPER HAND Kiet Dickens MD LAB BLOOD ORDERABLES F inal Result Performing Organization Address City/[facility] de Phone Number HISTORICAL RESULTS * Serum chorionic gonadotropin (HCG) identification (07/14/2013 6:07 AM WRAPPER HAND) Pathologist [facility] HCG, qual Negative NEGATIVE HISTORICAL RESULTS Serum 07/14/2013 6:07 AM WRAPPER HAND Kiet Dickens MD LAB BLOOD ORDERABLES F inal Result Performing Organization Address [facility] de Phone Number HISTORICAL RESULTS * (ABNORMAL) Blood cell count (CBC) (07/14/2013 6:07 AM WRAPPER HAND) Pathologist [facility] WBC 7.0 4.0 [...] RESULTS Blood specimen (specimen) 07/14/2013 6:07 AM WRAPPER HAND Kiet Dickens MD LAB BLOOD ORDERABLES F inal Result Performing Organization Address [facility] Co de Phone Number HISTORICAL RESULTS * (ABNORMAL) Blood WBC cell morphologic exam, auto (07/14/2013 6:07 AM WRAPPER HAND) Pathologist [facility] Lymphocytes 29.3 25.0 [...] RESULTS Blood specimen (specimen) 07/14/2013 6:07 AM WRAPPER HAND us Kiet Dickens MD LAB BLOOD ORDERABLES F inal Result HISTORICAL RESULTS * Discharge Laboratory Cumulative Report (07/14/2013 12:00 AM WRAPPER HAND) 07/14/2013 Narrative HISTORICAL RESULTS - 07/15/2013 2:49 AM WRAPPER HAND Patient No: [id number] ? [facility] Patient Name: KRISTY ESTES ? [facility] Healthcare Age: 37 YRS ?: 1975 ?Sex:F ?[address] )[id number] ?? Adm Dt: 07/14/2013 ?[place] ??[address] Created: 07/15/2013 ??0249 ?? Pt. Type: O [...] ?? CONTINUED ?Page: ?? 1 Patient No: [id number] ? [facility] Patient Name: KRISTY ESTES ? [facility] Healthcare Age: 37 YRS ?: 1975 ?Sex:F ?[address] )[id number] ?? Adm Dt: 07/14/2013 ?[place], [place] ??[address] Created: 07/15/2013 ??0249 ?? Pt. Type: O [...] institution documented in this encounter Care Teams Nurse Transitional Relationship Specialty Start Date End Date Fernando Bryant DO [address] [address] PCP - General 04/30/11 03/31/17 documented as of this encounter
--- OUTSIDE RECORDS SUMMARY | 2024-06-25 10:21 | XMS_ITS | Encounter Summary ---
Author Organization [facility] Healthcare Address [address] [place] [address] Care Team Providers Care Transition Social Worker Name Role Phone Annette Fernando Yanezony Primary Care Provider [phone] Encounter Details Date Type Department Care Team (Late st Contact Info) Description 11/27/2012 11:55 AM CDT - 11/27/2012 1:37 PM CDT Hospital Encounter [facility] Kiet Cristobal MD [address] [place] [address] [address] LOCKE [address] [address] Other complication of , antepartum Social History Tobacco Use Types Packs/Day Years Used Date Smoking Tobacco: Never Assessed Comments Unknown Sex and Gender Information Value Date Recorded Sex Assigned at Not on file Legal Sex Female 1:17 AM 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 [facility] Patient Name: KRISTY ESTES ? [facility] Healthcare Age: 37 YRS ?: 1975 ?Sex:F ?[address] ?? Adm Dt: 11/27/2012 ?[place], [place] ??[address] Created: 11/30/2012 ??0025 ?? Pt. Type: U [...] ORDERABLES F inal Result Performing Organization Address [facility] Co de Phone Number [...] ORDERABLES F inal Result Performing Organization Address [facility] de Phone Number HISTORICAL RESULTS * Microbiology Summary (11/27/2012 12:00 AM CDT) 11/27/2012 Narrative HISTORICAL RESULTS - 11/30/2012 12:33 AM CDT ? [facility] ?CLINICAL LABORATORIES ? MICROBIOLOGY REPORT PATIENT NAME: ??KRISTY ESTES ? MED RECORD#: ??[id number] BIRTHDATE: ??1975 ?? AGE: ??37 YRS SEX: F ?PATIENT#: ? [id number] ADMITTING DR: ??KIET DICKENS MD ? ATTENDING [...] - 11/28/2012 12:22 AM CDT Patient No: [id number] ? [facility] Patient Name: KRISTY ESTES ? C Healthcare Age: 37 YRS ?: 1975 ?Sex:F ?[address] [id number] ?? Adm Dt: 11/27/2012 ?[place], [place] ??[address] Created: 11/28/2012 ??0022 ?? Pt. Type: U [...] ORDERABLES Shama l Result Performing Organization Address City/State/[facility] Co de Phone Number HISTORICAL RESULTS documented in this encounter Visit Diagnoses Diagnosis Other complication of , antepartum documented in this encounter Care Teams Transition Social Worker Relationship Specialty Start Date End Date Fernando Bryant DO [address] [address] PCP - General 04/30/11 03/31/17 documented as of this encounter
--- OUTSIDE RECORDS SUMMARY | 2024-06-25 10:21 | XMS_ITS | Encounter Summary ---
Author Organization [facility] Healthcare Address [address] [place] [address] Care Team Providers Care Pulp Grinder And Blender Name Role Phone Unknown, Notinfile Primary Care Provider Unavail able Encounter Details Date Type Department Care Team ([facility] st Contact Info) Description 04/01/2017 11:51 AM CDT - 04/01/2017 3:09 PM CDT Emergency [facility] Emergency Department [address] [place] [address] Dayanna Uriarte Discharge Disposition: Discharge to home or self care Social History Tobacco Use Types Packs/Day Years Used Date Smoking Tobacco: Never Assessed Comments Unknown Sex and Gender Information Value Date Recorded Sex Assigned at Not on file 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 XR Chest 2 Views ?[id number] HISTORY: Chest Pain. COMPARISON: None available. FINDINGS: [...] Fax: ??-- Attending Fax: ??-- Attending ID: ??[id number] Requesting ID: ??[id number] Report To 1 ID: ??[id number] Report To 1 Name: ??DAYANNA URIARTE Report To 1 FAX: ??-- NextGen Order #: ?? Procedure Note Miscellaneous, Not In File / Provider, MD Gena - 04/01/2017 XR Chest 2 Views [id number] Acc#: [id number] DATE OF EXAM: Apr 01 2017 XR Chest 2 Views [id number] HISTORY: Chest Pain. COMPARISON: None available. FINDINGS: Heart size is normal. Lungs are clear. IMPRESSION: NO ACTIVE DISEASE. Electronically signed by: Xiang Carver M.D. Interpreting Physician: XIANG CARVER M.D. Read on: Apr 01 2017 1:39P Transcribed by: [facility] On: Apr 01 2017 1:37P Approved Electronically by: XIANG CARVER M.D. on: Apr 01 2017 1:37P Ordering DR: DAYANNA URIARTE Attending DR: DAYANNA URIARTE Attending: DAYANNA URIARTE Requesting: DAYANNA URIARTE Requesting Fax: -- Attending Fax: -- Attending ID: [id number] Requesting ID: [id number] Report To 1 ID: [id number] Report To 1 Name: DAYANNA URIARTE Report To 1 FAX: -- NextGen Order #: us Not In File Miscellaneous IMG XR PROCEDURES Shama l Result * HCG, urine, qualitative (04/01/2017 1:23 PM CDT) HCG, ur Negative Negative [facility] ([facility]) Urine 04/01/2017 1:23 PM CDT 04/01/2017 1:28 PM CDT [facility] [facility] LAB URINE ORDERABLES Final Resul t Performing Organization Address [facility] Co de Phone Number JANIE LOYOLA ([place]) 1 [facility] [place] [address] * (ABNORMAL) D-dimer, quantitative (04/01/2017 12:50 PM [...] 12:50 PM CDT 04/01/2017 12:57 PM CDT [facility] LAB BLOOD ORDERABLES Final Resul t Performing Organization Address [facility] Co de Phone Number JANIE LOYOLA ([place]) 1 [facility] [place] [address] * Pro B-type natriuretic peptide (04/01/2017 12:50 PM CDT) NT-proBNP 16 10 - 150 pg/mL YAWILMER MILLA ([place]) Comment: Diagnosis of Congestive Heart Failure: ??Heart [...] BLOOD ORDERABLES Final Resul t JANIE LOYOLA ([place]) 1 [facility] [place] [address] * eGFR (04/01/2017 12:50 PM CDT) eGFR >60 mL/min/1.7 3 m2 JANIE LOYOLA ([place]) Comment: Interpretive Data Reference Interval Normal ?>/= 90 mL/min/1.73m2 Mildly decreased* ? 60 - 89 mL/min/1.73m2 Mildly to moderately decreased ?45 - 59 mL/min/1.73m2 Moderately to severely decreased ??30 - 44 mL/min/1.73m2 Severely decreased ?15 - 29 mL/min/1.73m2 Kidney Failure ?< 15 ??mL/min/1.73m2 *Relative to young adult level If -Burmese multiply value by 1.16. Estimated glomerular filtration [...] Uriarte LAB BLOOD ORDERABLES Final Resul t [facility] ([place]) 1 [facility] [place] [address] * Comprehensive metabolic panel (04/01/2017 12:50 PM [...] 21 5 - 45 Units/L [facility] ([place]) AST 23 10 - 40 Units/L [facility] ([place]) Bilirubin, total 0.3 <=1.2 mg/dL [facility] ([place]) Blood specimen (specimen) 04/01/2017 12:50 PM CDT 04/01/2017 12:57 PM CDT [employer] [facility] LAB BLOOD ORDERABLES Final Resul t Performing Organization Address City/[facility] de Phone Number JANIE LOYOLA ([place]) 1 [facility] [place] [address] * Troponin T (04/01/2017 12:50 PM CDT) Troponin T <0.01 0.00 - 0.06 ng/mL JANIE LOYOLA ([place]) Comment: Interpretive Data Troponin table: ? Negative ? 0.00-0.06 ng/ml ? Indeterminate ?0.07-0.10 ng/ml ? Consistent with Myocardial Injury ?Greater than 0.10 ng/ml ?? Current interpretive data was last revised on 2014 Blood specimen (specimen) 04/01/2017 12:50 PM CDT 04/01/2017 12:57 PM CDT [employer] LAB BLOOD ORDERABLES Final Resul t Performing Organization Address City/[facility] de Phone Number JANIE LOYOLA ([place]) 1 [facility] [place] [address] * Differential, auto (04/01/2017 12:50 PM CDT) [...] Uriarte LAB BLOOD ORDERABLES Final Resul t [facility] 1 [facility] [place] [address] * (ABNORMAL) CBC with auto differential (04/01/2017 [...] NRBC abs 0.00 0.00 - 0.00 K/cumm [facility] ([place] Blood specimen (specimen) 04/01/2017 12:50 PM CDT 04/01/2017 12:57 PM CDT Dayanna Uriarte LAB BLOOD ORDERABLES Final Resul t [facility] ([place]) 1 [facility] [place] [address] * DISCHARGE LABORATORY CUMULATIVE REPORT (04/01/2017 12:00 AM CDT) Narrative 04/01/2017 12:00 AM CDT Ordered by an unspecified provider. Historical Provider LAB BLOOD ORDERABLES Shama l Result * ELECTROCARDIOGRAPHY (ECG) (04/01/2017) us Provider Scanning ECG ORDERABLES Final Result documented in this encounter Visit Diagnoses Not on filedocumented in this encounter Care Teams Pulp Grinder And Blender Relationship Specialty Start Date End Date Unknown, Notinfile PCP - General 04/01/17 09/29/17 documented as of this encounter
--- OUTSIDE RECORDS SUMMARY | 2024-06-25 10:21 | XMS_ITS | Encounter Summary ---
Author Organization [facility] Healthcare Address [address] [place] [id number] Care Team Providers Care Linseed Oil Boiler Name Role Phone Asia Wyman NP Primary Care Provider Mark gee Reason for Visit * Reason Comments Suicidal Encounter Details Date Type Department Care Team (Late st Contact Info) Description 09/30/2017 11:49 AM CDT - 10/01/2017 2:39 PM CDT Emergency [facility] Emergency Department 1 [place] [address] Galina Castelan MD 1 [facility] [place] [address] Alton Davis MD 1 [place] [address] Keron Diamond MD 1 [place] [address] Lei Chan., DO [address] [place] [address] Suicide attempt by hanging, initial encounter (CMS/HCC) [...] on file Legal Sex 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 ALFREDO Taylor,ZIGZAG ELASTIC ATTACHER 09/30/2017 3:26 PM documented in this encounter ED Notes * Arlyn Wu MSW - 10/01/2017 1:28 PM CDT Received call from Arlyn at [facility]. Patient accepted to room 121 under the care of Dr Murrieta. Patient to present to the ED. RN to call report to [phone]. RN to notify Arlyn when patient leaves [facility], . Updated VALERIA Estrada. Arlyn Wu, ALFREDO, [facility] Mental Health Actuarial Manager Cosigned by Ariane Conley LCSW at 10/01/2017 [...] Davis who assumes patient care. [AD] 1540 clinic coordinator evaluated patient and will seek placement [AD] ED Course User Index [AD] Issac Mendez [facility] Suicide attempt by hanging, initial encounter (CMS/HCC) Intentional drug overdose, initial encounter ([facility]) Depressed mood Lei Chan DO 10/01/17 1552 * Arlyn Wu MSW - 10/01/2017 10:48 AM CDT 10:48 -- Received call from VALERIA Estrada, reporting patient agreeable to transfer into [facility] if needed. 10:58 - Received call from Arlyn at [facility]. Requested information given. Transferred Arlyn to [facility] to speak with the patient as requested. 11:08 - Received call from Arlyn at [facility] reporting she will call Intake after a decision is made by the Psychiatrist. ALFREDO Dominguez MANAGER [employer] Mental Health Actuarial Manager Cosigned by Ariane Conley LCSW at 10/01/2017 2:01 PM CDT * Arlyn Wu MSW - 10/01/2017 10:21 AM CDT Contacted [facility] in effort to locate a psychiatric bed. Instructed to fax information. ALFREDO Dominguez LMSW Mental Health Actuarial Manager Cosigned by Ariane Conley LCSW at 10/01/2017 2:01 PM CDT * Arlyn Wu MSW - 10/01/2017 10:12 AM CDT Returned call to VALERIA Hernandez. Discussed transfer status. Patient continues to be agreeable to voluntary admission. ALFREDO Dominguez, [facility] Mental Health Actuarial Manager Cosigned by Ariane Conley LCSW at 10/01/2017 2:01 PM CDT * Jazmyn Richards MSW - 10/01/2017 7:43 AM CDT Intake called [facility] spoke to Nena who stated they no longer have a psychiatric unit. Intake then called [facility] spoke to Benito who stated they do not have any adult beds available and they have boarders who will take priority to any bed openings. Intake then called [facility] spoke to Connie who stated they do not currently have any beds available but to try back sometime after 1100 to check for potential discharges later today. Intake called [facility], no answer. Left a voicemail for [facility] outside installation machinist, awaitingtheir response at this time. * Jazmyn Richards MSW - 10/01/2017 3:30 AM CDT Intake received a call from Alyssa at [facility] who reported that they cannot accommodate this patient at this time. Intake to continue pursuit of psychiatric placement. * Jazmyn Richards MSW - 10/01/2017 3:20 AM CDT Intake received call [facility] stating that the EKG was completed. Intake faxed EKG results to Alyssa at [facility]. Intake awaiting their response. * Jazmyn Richards MSW - 10/01/2017 1:53 AM CDT [facility] received call from Alyssa at [facility] Giovanny requesting [facility] complete an EKG on this Patient. Once Alyssa receives the results of the EKG she will staff this patient with their doctor. * Jazmyn Richards MSW - 10/01/2017 12:00 AM CDT [facility] received a call from Alyssa at [facility] stating that she has the patient paperwork and before she staffs this patient with the doctor she needs a signed voluntary form by this patient. [facility] gave Alyssa [facility] fax number and reported that [facility] would inform [facility] that the fax would need to be signed and faxed back to [facility]. Alyssa to contact [facility] once she hasreceived the consent form, staffed with the doctor, and has an acceptance/declination from the doctor. [facility] awaiting her response. * Jazmyn Richards MSW - 09/30/2017 11:20 PM CDT [facility] called [facility] spoke to Sandra who reported that their Intake CoordinatorJerry would be in touch. [facility] then received a call from Hilton at [phone] stating that they do not have any available female beds at this time but to try back in the morning for possible discharges. * Jazmyn Richards MSW - 09/30/2017 11:04 PM CDT [facility] called [facility] spoke to Anai and reported that [facility] had never called to update [facility] on this Patient's status. Anai stated that she would page [facility] again to return [facility]'s call. [facility] then received a call back from [facility] spoke to Alyssa who reported that she needs to call the previous Actuarial Manager for information on this patient as she just got to work at 2300. Alyssa at [facility] to call Intake back after speaking with her coworker. [facility] then called [facility] spoke to Vlad, [facility] spoke to Yash, and [facility] spoke to Avelina all do not have bed availability at this time. Intake called [facility] spoke to Gill, they do have bed availability so Intake gave Patient clinicals. Gill at [facility] then asked what the Patient's insurance was and spoke with her nursing supervisor sintering plant who informed [facility] that they do nottake Cesar Medicaid so they will not be able to accommodate this Patient. Intake awaiting response from [facility] at this time. * Jazmyn Richards MSW - 09/30/2017 9:25 PM CDT [facility] called [facility] to get an update on the status of this Patient. [facility] television operator stated that she would page their Intake department and that they will be in contact. Intakeawaiting their return call. * Jazmyn Richards MSW - 09/30/2017 7:30 PM CDT PM Intake received report from AM Intake regarding this Patient. PM Intake still awaiting response from Lidia at [facility] in [place]. * Melissa Osman RN - 09/30/2017 6:35 PM CDT Calls placed to [facility], [facility], [facility] adult female beds available some are waiting for discharges. Called [facility] in [place] spoke to Lidia and papers faxed. Awaiting [...] Pt reports currently seeking MH services at [facility]. She called her therapist Angela and she was encouraged to go to ED. At this time, pt meet criteria for inpt admission. RN is aware of pt voluntary status. ALFREDO Taylor,ZIGZAG ELASTIC ATTACHER 09/30/2017 3:29 PM * Андрей Bryant RN [...] Davis who assumes patient care. [AD] 1540 clinic coordinator evaluated patient and will seek placement [...] Impression: Suicide attempt by hanging, initial encounter ([facility]) Intentional drug overdose, initial encounter ([facility]) Depressed mood Galina Castelan MD 09/30/177 documented in this encounter Miscellaneous Notes * Teleconsult - Carmenza Frank, SENIOR CENTER MANAGER - 09/30/2017 2:38 PM CDT Mental Health Services Intake Assessment Date: 09/30/17 Start time: 1438 End time: 1520 Client Name: Kristy Kapoor Date of : 1975 Phone #: [phone] (home) Race: Client Address: [address] [place] [id number] Presenting Problem: Attempted to hang herself; however, [...] Currently seeing Dr. Galloway for psych services. [facility] Next appointment with psychiatrist: Dr. Galloway at [facility] Next appointment with therapist/counselor: Referral source: Contact number: Angela therapist at [facility]- told pt to come to ED to seek inpt services due to instability LETHALITY ASSESSMENT Current suicide ideation: Plan. Describe Plan: to hang myself or cut self, Intent and Thoughts Suicidal ideation in the past 2 weeks: Yes Prior Attempts: Yes When: living in [place] - 18 years ago How: sleeping pills [...] brother. She notes her brother lives in [place]. She notes talking w/ her parents; however, [...] (Describe: life situation, highest level of educations, hindu affiliation, family history of mental illness/substance abuse, [...] State appointed guardian: No Mental Health POA/DPOA: [place]: Phone Number: Financial stressors:na PROVISIONAL DIAGNOSIS: F32.9 Major depressive disorder, single episode, unspecified, F41.9 Anxiety disorder, unspecified and F43.10 Post-traumatic stress disorder, unspecified CASE SUMMARY/ADDITIONAL COMMENTS: Pt meets criteria for inpt admission. She currently is unstable to be left alone. Pt agreed to voluntarily admission. ADDITIONAL ASSESSMENTS: None ALFREDO Taylor, ZIGZAG ELASTIC ATTACHER 3:21 PM 09/30/2017 documented in this encounter [...] AM CDT Ordered by an unspecified provider. [facility] Provider LAB BLOOD ORDERABLES Shama l [...] MD LAB URINE ORDERABLES Shama l [facility] 1 [facility] [place] [address] * (ABNORMAL) Urinalysis reflex to microscopic (09/30/2017 [...] Ketones, ur Negative Negative [facility] ([place]) Bilirubin, ur Negative Negative [facility] ([place]) [...] URINE ORDERABLES Shama lyle Result [facility] ([place]) 1 [facility] Department [place] [address] * Drug screen, urine (09/30/2017 1:25 PM CDT) Amphetamines, Class Negative Screen Negative Screen [facility] ([place]) Comment: Interpretive Data Amphetamines cut off value [...] ur Negative Screen Negative Screen [facility] ([place]) Comment: Interpretive Data PCP cut off value [...] URINE ORDERABLES Shama lyle Result [facility] ([place]) 1 [facility] Department [place] [address] * eGFR (09/30/2017 12:35 PM CDT) eGFR >60 mL/min/1.7 3 m2 [facility] ([place]) Comment: Interpretive Data Reference Interval Normal ?>/= 90 mL/min/1.73m2 Mildly decreased* ? 60 - 89 mL/min/1.73m2 Mildly to moderately decreased ?45 - 59 mL/min/1.73m2 Moderately to severely decreased ??30 - 44 mL/min/1.73m2 Severely decreased ?15 - 29 mL/min/1.73m2 Kidney Failure ?< 15 ??mL/min/1.73m2 *Relative to young adult level If -Scottish multiply value by 1.16. Estimated glomerular filtration [...] ORDERABLES Shama l Result Performing Organization Address City/[facility]/ZIP Co de Phone Number [facility] ([place]) 1 [facility] [employer] [place] [address] * (ABNORMAL) Manual Differential (09/30/2017 12:35 PM CDT) Pathologist [facility] Neutrophils 57 44 - 80 % CERNER [...] ORDERABLES Shama l Result Performing Organization Address City/[facility]/ZIP Co de Phone Number [facility] ([place]) 1 [facility] [place] [address] * hCG, blood, quantitative (09/30/2017 12:35 PM [...] - 100,200 7 - 12 Weeks ? 16933 - 289,000 16 - 29 Weeks ? 12130 - 137,000 29 - 41 Weeks ? 900 - 60,000 Current interpretive data was last revised on 2014 Blood specimen (specimen) 09/30/2017 12:35 PM CDT 09/30/2017 12:40 PM CDT Narrative [facility] ([place]) - 09/30/2017 1:29 PM CDT Galina Castelan MD LAB BLOOD ORDERABLES Shama l Result [facility] ([place]) 1 [facility] Department [place] [address] * TSH (09/30/2017 12:35 PM CDT) Thyroid Stimulating Hormone 2.95 0.30 - 5.00 mcIUnit/mL [facility] ([place]) Blood specimen (specimen) 09/30/2017 12:35 PM CDT 09/30/2017 12:40 PM CDT Narrative [facility] ([place]) - 09/30/2017 2:34 PM CDT Galina Castelan MD LAB BLOOD ORDERABLES Shama l Result [facility] ([place]) 1 [facility] [place] [address] * (ABNORMAL) Salicylate level (09/30/2017 12:35 PM CDT) Salicylate <5.0(L) 4.0 - 29.0 mg/dL [facility] ([place]) Comment: Interpretive Data Therapeutic range: ??4-29 mg/dl ?? Toxic: ?30-70 mg/dl ? Lethal: ? Greater than 70 mg/dl Current interpretive data was last revised on 2014. Blood specimen (specimen) 09/30/2017 12:35 PM CDT 09/30/2017 12:40 PM CDT Narrative [facility] ([place]) - 09/30/2017 1:25 PM CDT Galina Castelan MD LAB BLOOD ORDERABLES Shama l Result Performing Organization Address City/[facility] Co de Phone Number [facility] ([place]) 1 [facility] [place] [address] * Acetaminophen level (09/30/2017 12:35 PM CDT) Acetaminophen <15.0 10.0 - 30.0 mcg/mL [facility] ([place]) Comment: Markedly elevated levels of Acetaminophen and [...] ORDERABLES Shama l Result Performing Organization Address City/[facility]/ZIP Co de Phone Number [facility] ([place]) 1 [place] [address] * Ethanol (09/30/2017 12:35 PM CDT) Ethanol <10 <=10 mg/dL [facility] ([place]) Comment: Interpretive Data Normal: ??Less than 10 mg/dL = No Ethanol detected For medical purposes Current interpretive data was last revised on 2014. Blood specimen (specimen) 09/30/2017 12:35 PM CDT 09/30/2017 12:40 PM CDT Narrative [facility] ([place]) - 09/30/2017 1:25 PM CDT Galina Castelan MD LAB BLOOD ORDERABLES Shama l Result Performing Organization Address [facility] de Phone Number [facility] ([place]) 1 [facility] [place] [address] * (ABNORMAL) Comprehensive metabolic panel (09/30/2017 12:35 PM CDT) Sodium 138 135 - 145 mmol/L [facility] ([place]) Potassium, pl 4.4 3.3 - 4.9 mmol/L [facility] ([place]) CO2 28 22 - 32 mmol/L [facility] ([place]) BUN 13 8 - 25 mg/dL [facility] ([place]) Glucose 136 70 - 199 mg/dL [facility] ([place]) Comment: Interpretive Data Fasting glucose [...] MD LAB BLOOD ORDERABLES Shama l Result [facility] ([place]) 1 [facility] Department [place] [address] * CBC with auto differential (09/30/2017 12:35 [...] Shama lyle Result [facility] ([place]) 1 [facility] Department [place] [address] documented in this encounter Visit Diagnoses Diagnosis [...] 10/01/2017 documented in this encounter Care Teams Linseed Oil Boiler Relationship Specialty Start Date End Date Asia Wyman, ELECTROTYPER PCP - General Nurse Practitioner 09/30/17 03/04/20 documented as of this encounter
--- OUTSIDE RECORDS SUMMARY | 2024-06-25 10:21 | XMS_ITS | Encounter Summary ---
Author Organization [facility] Healthcare Address [address] [place] [address] Care Team Providers Care Railroad Firer Name Role Phone Annette Fernando Jon Primary Care Provider [phone] Encounter Details Date Type Department Care Team (Late st Contact Info) Description 07/14/2012 8:20 AM DRUM ATTENDANT - 07/14/2012 11:59 PM DRUM ATTENDANT Hospital Encounter [facility] Kiet Cristobal MD [address] [place] [address] [address] LOCKE [address] [address] Breech presentation, antepartum; Antepartum placenta previa without hemorrhage Social History Tobacco Use Types Packs/Day Years Used Date Smoking Tobacco: Never Assessed Comments Unknown Sex and Gender Information Value Date Recorded Sex Assigned at Not on file Legal Sex Female 1:17 AM DRUM ATTENDANT Gender Identity Not on file Sexual Orientation Not on file documented as of this encounter Plan of Treatment Not on file documented as of this encounter Procedures Procedure Name Priority Date/Time Associated Diagnosis Comments SONOGRAPHY, COMPLETE Routine 07/14/2012 9:20 AM DRUM ATTENDANT documented in this encounter Results * SONOGRAPHY, COMPLETE (07/14/2012 9:20 AM DRUM ATTENDANT) Anatomical Region Laterality Modality N/A Ultrasound 07/14/2012 9:20 AM DRUM ATTENDANT Narrative 07/14/2012 12:23 PM DRUM ATTENDANT Mr US OB >=14 wks ??Acc#: ??[id number] DATE OF EXAM: ??Jul 14 2012 CLINICAL HISTORY: Evaluate anatomy. ??Report of prior studies at outside facility. RESULT: The study was performed with transabdominal imaging. ??There is a single, live intrauterine fetus who is breech in position. ??The amniotic fluid volume is normal. ??There is a posterior low lying placenta. ??Mean age is 18 weeks 4 days with an ROSELIA of 12/11/12 based on the OB measurements obtained today of 18 weeks 1 day biparietal diameter, 18 weeks 4 days head circumference and femur length and 18 weeks 5 days abdominal circumference. ??The estimated weight is 249g plus or minus 37g 48th percentile. Heart rate is regular at 149 beats per minute. ??Visualized structures including the hands, feet, cerebrum, cerebellum, spine, face, four chamber heart, stomach, kidneys, bladder three vessel cord, cord insertion, ventral wall and diaphragm appear unremarkable. ??Cervical length is approximately 3.2cm. IMPRESSION: 1. SINGLE, LIVE INTRAUTERINE FETUS BREECH IN POSITION WITH MEAN AGE 18WEEKS 4 DAYS AND AN ROSELIA OF 12/11/12 BASED ON CURRENT MEASUREMENTS CONCORDANT WITHIN 4 DAYS. ??ESTIMATED WEIGHT 249G PLUS OR MINUS 37G ??48TH PERCENTILE. 2. REGULAR HEART RATE OF 149 BEATS PER MINUTE. 3. VISUALIZED STRUCTURES SHOW NO OBVIOUS ABNORMALITIES. 4. POSTERIOR LOW LYING PLACENTA. 5. NORMAL AMNIOTIC FLUID VOLUME. Interpreting Physician: ??XIANG COYLE M.D. ??Read on: ??Jul 14 2012 10:27A Transcribed by: ??mrr ??On: Jul 14 2012 11:38A Approved Electronically by: ??XIANG COYLE M.D. ??on: ??Jul 14 2012 12:23P Ordering DR: DR KIET DICKENS Attending DR: DR KIET DICKENS Procedure Note Provider, MD Gena - 10/21/2016 Mr US OB >=14 wks Acc#: [id number] DATE OF EXAM: Jul 14 2012 CLINICAL HISTORY: Evaluate anatomy. Report of prior studies at outside facility. RESULT: The study was performed with transabdominal imaging. There is a single,live intrauterine fetus who is breech in position. The amniotic fluidvolume is normal. There is a posterior low lying placenta. Mean age is18 weeks 4 days with an ROSELIA of 12/11/12 based on the OB measurementsobtained today of 18 weeks 1 day biparietal diameter, 18 weeks 4 days headcircumference and femur length and 18 weeks 5 days abdominalcircumference. The estimated weight is 249g plus or minus 37g 48thpercentile. Heart rate is regular at 149 beats per minute. Visualizedfetal structures including the hands, feet, cerebrum, cerebellum, spine,face, four chamber heart, stomach, kidneys, bladder three vessel cord,cord insertion, ventral wall and diaphragm appear unremarkable. Cervicallength is approximately 3.2cm. IMPRESSION: 1. SINGLE, LIVE INTRAUTERINE FETUS BREECH IN POSITION WITH MEAN [id number] 4 DAYS AND AN ROSELIA OF 12/11/12 BASED ON CURRENT MEASUREMENTSCONCORDANT WITHIN 4 DAYS. ESTIMATED WEIGHT 249G PLUS OR MINUS 37G 48THPERCENTILE. 2. REGULAR HEART RATE OF 149 BEATS PER MINUTE. 3. VISUALIZED STRUCTURES SHOW NO OBVIOUS ABNORMALITIES. 4. POSTERIOR LOW LYING PLACENTA. 5. NORMAL AMNIOTIC FLUID VOLUME. Interpreting Physician: XIANG COYLE M.D. Read on: Jul 14 2012 10:27A Transcribed by: dominic On: Jul 14 2012 11:38A Approved Electronically by: XIANG COYLE M.D. on: Jul 14 2012 12:23P Ordering DR: DR KIET DICKENS Attending DR: DR KIET DICKENS us Historical Provider MD ANDRADE US PROCEDURES Final R esult documented in this encounter Visit Diagnoses Diagnosis Breech presentation, antepartum Antepartum placenta previa without hemorrhage Placenta previa without hemorrhage, antepartum documented in this encounter Care Teams Railroad Firer Relationship Specialty Start Date End Date Fernando Bryant DO [address] [facility] [address] PCP - General 04/30/11 03/31/17 documented as of this encounter
--- OUTSIDE RECORDS SUMMARY | 2024-06-25 10:21 | XMS_ITS | Encounter Summary ---
Author Organization [facility] Healthcare Address [address] [place] [address] Care Team Providers Care Woodwind Instruments Inspector Name Role Phone Annette Fernando Yanezony Primary Care Provider +1- [phone] Encounter Details Date Type Department Care Team (Late st Contact Info) Description 12/04/2012 3:03 PM CDT - 12/07/2012 10:00 AM CDT Hospital Encounter [facility] Kiet Cristobal MD [address] [place] [address] [address] [place] [place] [id number] Other current maternal conditions classifiable elsewhere, with delivery; Advanced maternal age, delivered; Carrier or suspected carrier of group B Streptococcus; Delivery outcome of single liveborn Social History Tobacco Use Types Packs/Day Years Used Date Smoking Tobacco: Never Assessed Comments Unknown Sex and Gender Information Value Date Recorded Sex Assigned at Not on file Legal Sex Female 1:17 AM 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 [...] (11/27/2012 12:48/Gayla Sandoval, VALERIA) Contractions: Denies/Absent (11/27/2012 12:48/Galya Sandoval, RN) Rupture of membrane: Unsure (11/27/2012 [...] - 12/09/2012 12:25 AM CDT Patient No: [id number] ? [facility] [place] Patient Name: KRISTY ESTES ? [facility] Healthcare Age: 37 YRS ?: 1975 ?Sex:F ?[address] )[id number] ?? Adm Dt: 12/04/2012 ?[place] ??[address] Created: 12/09/2012 ??0025 ?? Pt. Type: I ? Discharge Dt: 12/07/2012 ? Pathologists: Kristy Atwood MD Admit Dr. Sagastume Dr: KIET DICKENS MD ?S U R G I Veronica Lyle ?P A T H O L O G Y ?R E P O R T ? Case #: ?[id number] ? Date: 12/06/12 SPECIMEN SOURCE: ? Placenta. [...] in diameter and contains three blood vessels. ??Clinical Statistics Manager ? sections are submitted in four cassettes. ?SJ/moshe/blessing MICROSCOPIC DESCRIPTION: ? The umbilical cord is free of inflammation and has a normal two arteries and a ? vein. There is a patchy mild neutrophil infiltrate in the chorion layer of the ? membranes. ??The villous architecture is consistent with a term delivery. SJ/lm ?? CONTINUED ?Page: ?? 1 Patient No: [id number] ? [facility] [place] Patient Name: KRISTY ESTES ? [facility] Age: 37 YRS ?: 1975 ?Sex:F ?[address] )[id number] ?? Adm Dt: 12/04/2012 ?[place], [place] ??[address] Created: 12/09/2012 ??0025 ?? Pt. Type: I ? Discharge Dt: 12/07/2012 ? Pathologists: Kristy Atwood MD Admit Attend Dr: KIET DICKENS MD ?S Clayton Lyle ?P A T H O L O G Y ?R E P O R T ? Case #: ?[id number] ? Date: 12/06/12 DIAGNOSIS: ? PLACENTA AND CORD ? -MILD CHORIOAMNIONITIS ? [id number], [id number], [id number], [id number] ? Pathologist: NATO VILLEGAS MD Electronic signature ? SMJ SMJ/LM 12/08/12 ?? END OF CHART ? Page: ?? 2 us Historical Provider LAB MICROBIOLOGY - GENERA L ORDERABLES Final Result HISTORICAL RESULTS * Discharge Laboratory Cumulative Report (12/07/2012 12:00 AM CDT) 12/07/2012 Narrative HISTORICAL RESULTS - 12/08/2012 12:26 AM CDT Patient No: [id number] ? [facility] [place] Patient Name: KRISTY ESTES ? [facility] Age: 37 YRS ?: 1975 ?Sex:F ?[address] )[id number] ?? Adm Dt: 12/04/2012 ?[place] ??[id number] Created: 12/08/2012 ??0026 ?? Pt. Type: I [...] ?? CONTINUED ?Page: ?? 1 Patient No: [id number] ? [facility] [place] Patient Name: KRISTY ESTES ? [facility] Healthcare Age: 37 YRS ?: 1975 ?Sex:F ?[address] )[id number] ?? Adm Dt: 12/04/2012 ?[place] ??[address] Created: 12/08/2012 ??0026 ?? Pt. Type: I [...] ?? CONTINUED ?Page: ?? 2 Patient No: [id number] ? [facility] [place] Patient Name: KRISTY ESTES ? [facility] Age: 37 YRS ?: 1975 ?Sex:F ?[address] )[id number] ?? Adm Dt: 12/04/2012 ?[place], [place] ??[address] Created: 12/08/2012 ??0026 ?? Pt. Type: I ? Discharge Dt: 12/07/2012 ? Pathologists: Kristy Atwood MD Admit Attend Dr: KIET DICKENS MD ? A N T I B O D Y ?? I D E N T I F I C A T I O N ? Case #: ?[id number] ? Date: 12/04/12 BLOOD TYPE: ? A, [...] HISTORICAL RESULTS - 12/08/2012 2:26 PM CDT [facility] [place] Patient No: [id number] Patient Name: KRISTY ESTES )[id number] Age: 37 YRS ?? : 1975 Admit Phys: KIET DICKENS MD Case #: [id number] ? Date: 12/06/12 SPECIMEN SOURCE: ? Placenta. [...] diameter and contains three blood vessels. ? Clinical Statistics Manager sections are submitted in four cassettes. ? [...] PLACENTA AND CORD ? -MILD CHORIOAMNIONITIS ? [id number], [id number], [id number], [id number] ? Pathologist: NATO VILLEGAS MD Electronic ?signature [...] specimen (specimen) 12/06/2012 6:36 AM CDT Result [facility] Brianda Cedillo MD LAB BLOOD ORDERABLE S Final Result Performing Organization Address [facility] de Phone Number HISTORICAL RESULTS * (ABNORMAL) [...] specimen (specimen) 12/06/2012 6:36 AM CDT Result [facility] Brianda Cedillo MD LAB BLOOD ORDERABLE S Final Result Performing Organization Address [facility] de Phone Number HISTORICAL RESULTS * Blood ABO, Rh (12/04/2012 3:25 PM CDT) ABO, Rho (D) interp A Positive HISTORICAL RESULTS Blood specimen (specimen) 12/04/2012 3:25 PM CDT Result [facility] Brianda Cedillo MD LAB BLOOD ORDERABLE S Final Result Performing Organization Address [facility] de Phone Number HISTORICAL RESULTS * Blood antibody titer (12/04/2012 3:25 PM CDT) Antibody titer ANTI-c - HISTO RICAL RESULTS Erythrocyte ab, current titer 1:2 HISTORICAL RESULTS Blood specimen (specimen) 12/04/2012 3:25 PM CDT us Brianda Cedillo MD LAB BLOOD ORDERABLE S Final Result Performing Organization Address [facility] de Phone Number HISTORICAL RESULTS * Blood antibody identification (12/04/2012 3:25 PM CDT) RBC ab, ID #1 ANTI-c - HISTOR ICAL RESULTS Blood specimen (specimen) 12/04/2012 3:25 PM CDT us Brianda Cedillo MD LAB BLOOD ORDERABLE S Final Result Performing Organization Address [facility] Phone Number HISTORICAL RESULTS * (ABNORMAL) Blood antibody screen interp (12/04/2012 3:25 PM CDT) Tonya, indirect Positive(A ) HISTORICAL RESULTS Blood specimen (specimen) 12/04/2012 3:25 PM CDT us Brianda Cedillo MD LAB BLOOD ORDERABLE S Final Result Performing Organization Address [facility] Phone Number HISTORICAL RESULTS * (ABNORMAL) Blood [...] ORDERABLE S Final Result Performing Organization Address City/State/[facility] [...] infant documented in this encounter Care Teams Woodwind Instruments Inspector Relationship Specialty Start Date End Date Fernando Bryant DO [address] [place] [address] PCP - General 04/30/11 03/31/17 documented as of this encounter
--- OUTSIDE RECORDS SUMMARY | 2024-06-25 10:21 | XMS_ITS | Encounter Summary ---
Author Organization [facility] Healthcare Address [address] [place] [address] Care Team Providers Care Substation Electrician Name Role Phone Pao Bryantn Jon Primary Care Provider +1- [phone] Encounter Details Date Type Department Care Team (Late st Contact Info) Description 11/14/2012 1:35 PM CDT - 11/14/2012 11:59 PM CDT Hospital Encounter [facility] Kiet Cristobal MD [address] [place] [address] [address] [address] Antepartum placenta previa without hemorrhage Social History Tobacco Use Types Packs/Day Years Used Date Smoking Tobacco: Never Assessed Comments Unknown Sex and Gender Information Value Date Recorded Sex Assigned at Not on file Legal Sex Female 1:17 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 RESULT: Grayscale real time images demonstrate a single, live intrauterine fetus in cephalic presentation. ??Placenta is posterior fundal; grade 2. Placenta ends well above the internal cervical os. ??Amniotic fluid volume is normal. ??BPD is 88 mm (35 weeks 3 days), head circumference 321 mm (36 weeks 2 days), abdominal circumference 323 mm (36 weeks 2 days), and femur length 71 mm (36 weeks 3 days). ??Gestational age is 36 weeks 1 day with EDC December 08 by prior sonogram. ??Current measurements agree exactly. ??Estimated weight is 2875 +/- 426 grams (53rd percentile). ??Regular heart is recorded at 150 beats per minute. ??Evaluation of anatomy was limited. ??Identified parts are listed on the OB worksheet. ??No abnormalities are demonstrated. IMPRESSION: 1. SINGLE, LIVE INTRAUTERINE FETUS OF APPROXIMATELY 36 WEEKS 3 DAYS GESTATION WITH EDC DECEMBER 08. 2. POSTERIOR PLACENTA, BUT NO PLACENTA PREVIA. 3. ESTIMATED WEIGHT 2875 +/- 426 GRAMS (53RD PERCENTILE). Interpreting Physician: ??CORY HUANG M.D. ??Read on: ??Nov 14 2012 8:05P Transcribed by: ??vajuarez ??On: Nov 14 2012 ??8:15P Approved Electronically by: ??REINA Molina, CORY ??on: ??Nov 16 2012 8:46A Ordering DR: DR KIET DICKENS Attending DR: DR KIET DICKENS Procedure Note Provider, MD Gena - 10/21/2016 US OB Limted Acc#: [id number] DATE OF EXAM: Nov 14 2012 CLINICAL HISTORY: Follow up low lying placenta. RESULT: Grayscale real time images demonstrate a single, live intrauterine fetusin cephalic presentation. Placenta is posterior fundal; grade 2. Placentaends well above the internal cervical os. Amniotic fluid volume isnormal. BPD is 88 mm (35 weeks 3 days), head circumference 321 mm (36weeks 2 days), abdominal circumference 323 mm (36 weeks 2 days), and femurlength 71 mm (36 weeks 3 days). Gestational age is 36 weeks 1 day withEDC December 08 by prior sonogram. Current measurements agree exactly.Estimated weight is 2875 +/- 426 grams (53rd percentile). Regularfetal heart is recorded at 150 beats per minute. Evaluation of fetalanatomy was limited. Identified parts are listed on the OBworksheet. No abnormalities are demonstrated. IMPRESSION: 1. SINGLE, LIVE INTRAUTERINE FETUS OF APPROXIMATELY 36 WEEKS 3 DAYSGESTATION WITH EDC DECEMBER 08. 2. POSTERIOR PLACENTA, BUT NO PLACENTA PREVIA. 3. ESTIMATED WEIGHT 2875 +/- 426 GRAMS (53RD PERCENTILE). Interpreting Physician: CORY HUANG M.D. Read on: Nov 14 20128:05P Transcribed by: yung On: Nov 14 2012 8:15P Approved Electronically by: CORY HUANG M.D. on: Nov 16 20128:46A Ordering DR: DR KIET DICKENS Attending DR: DR KIET DICKENS us Historical Provider MD ANDRADE US PROCEDURES Final R esult documented in this encounter Visit Diagnoses Diagnosis Antepartum placenta previa without hemorrhage Placenta previa without hemorrhage, antepartum documented in this encounter Care Teams Substation Electrician Relationship Specialty Start Date End Date Fernando Bryant DO [address] [place] [address] PCP - General 04/30/11 03/31/17 documented as of this encounter
--- OUTSIDE RECORDS SUMMARY | 2024-06-25 10:22 | XMS_ITS | Encounter Summary ---
Author Organization [facility] Healthcare Address [address] [place] [address] Care Team Providers Care Roller Machine Operator Name Role Phone Fernando Bryant DO Primary Care Provider +1- [phone] Encounter Details Date Type Department Care Team (Late st Contact Info) Description 11/07/2009 11:02 AM CDT - 11/07/2009 11:59 PM CDT Hospital Encounter [facility] Fernando Bryant DO [address] [place] [address] Pain in soft tissues of limb Social History Tobacco Use Types Packs/Day Years Used Date Smoking Tobacco: Never Assessed Comments Unknown Sex and Gender Information Value Date Recorded Sex Assigned at Not on file 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
--- OUTSIDE RECORDS SUMMARY | 2024-06-25 10:22 | XMS_ITS | Encounter Summary ---
Author Organization [facility] Healthcare Address [address] [place] [address] Care Team Providers Care Wash House Worker Name Role Phone Fernando Bryant DO Primary Care Provider +1- [phone] Encounter Details Date Type Department Care Team (Late st Contact Info) Description 09/03/2009 9:13 PM CARPENTER PACKING - 09/03/2009 11:59 PM CARPENTER PACKING Hospital Encounter [facility]INCONV Myalgia and myositis; Routine general medical examination at a health care facility Social History Tobacco Use Types Packs/Day Years Used Date Smoking Tobacco: Never Assessed Comments Unknown Sex and Gender Information Value Date Recorded Sex Assigned at Not on file Legal Sex Female 1:17 AM CARPENTER PACKING Gender Identity Not on file Sexual Orientation Not on file documented as of this encounter Plan of Treatment Not on file documented as of this encounter Visit Diagnoses Diagnosis Myalgia and myositis Unspecified myalgia and myositis Routine general medical examination at a health care facility documented in this encounter Care Teams Wash House Worker Relationship Specialty Start Date End Date Fernando Bryant DO [address] [place] [address] PCP - General 09/03/09 11/06/09 documented as of this encounter
== END 2024-06-18 10:44 | disposition home or self-care (01) ==
PROVIDERS: Emergency Provider Nurse Practitioner Family; PCP Family Medicine
DX: L50.9 Urticaria, unspecified (principal); L30.9 Dermatitis, unspecified
CPT/HCPCS: 99213; G0463